=== PATIENT | female | born 1945 | race African-American/Black ===

== ENCOUNTER 2017-02-14 20:59 | Inpatient (IN) | payer MEDICARE, OTHER ==
[~2017-02-14] VITALS: Ht 162.6 cm; Wt 71.9 kg
[2017-02-14] MEDS ORDERED: DEXTROSE 50% 25 GM / 50ML DISP.SYRIN. IV ONE ×3 (21:20→23:00)
[2017-02-14] MEDS ORDERED: IV NORMAL SALINE 1000ML BAG 2,040 ML IV SCH (21:33)
[2017-02-14 21:38] LABS: BASO # 0.8 x10^3/uL (0.0-0.2); BASO % 1 % (0-3); EOS % 1 % (0-3); LYMPH % 3 % (24-48); MEAN CORPUSCULAR HEMOGLOBIN 27 pg (25-35); MEAN CORPUSCULAR HGB CONC 29 g/dL (31-37); MEAN CORPUSCULAR VOLUME 94 fL (79-100); MONO % 3 % (0-9); NEUT % 93 % (31-73); PLATELET COUNT 864 x10^3/uL (140-400); RED BLOOD COUNT 1.56 x10^6/uL (3.50-5.40); RED CELL DISTRIBUTION WIDTH 27.8 % (11.5-14.5)
[2017-02-14 21:42] LABS: HEMATOCRIT 14.7 % (36.0-47.0); HEMOGLOBIN 4.2 g/dL (12.0-15.5); WHITE BLOOD COUNT 67.7 x10^3/uL (4.0-11.0)
[2017-02-14 21:52] LABS: CALCIUM 7.6 mg/dL (8.5-10.1); CREATININE 7.2 mg/dL (0.6-1.0); GFR 5.6; POTASSIUM 4.2 mmol/L (3.5-5.1)
[2017-02-14 22:00] LABS: ALBUMIN 2.1 g/dL (3.4-5.0); ALBUMIN/GLOBULIN RATIO 0.8 (1.0-1.7); INR 1.8 (0.8-1.1); PROTHROMBIN TIME PATIENT 19.7 SEC (11.7-14.0); TOTAL BILIRUBIN 0.3 mg/dL (0.2-1.0); TOTAL PROTEIN 4.7 g/dL (6.4-8.2)
[2017-02-14] MEDS ORDERED: IV NORMAL SALINE 1000ML BAG 1,000 ML IV SCH (22:15)
[2017-02-14] MEDS ORDERED: VANCOMYCIN 1.75 GM in IV NORMAL SALINE 500ML BAG 500 ML IV ONE (22:15)
[2017-02-14 22:31] LABS: % EOS 1 % (0-5); ANISOCYTOSIS MARKED; HYPOCHROMIA MOD; PLT ESTIMATE INCREASED (ADEQUATE); POIKILOCYTOSIS MOD; POLYCHROMASIA MOD
[2017-02-14 22:32] LABS: SCHISTOCYTES FEW; SPHEROCYTES FEW; TOXIC GRANULATION SLIGHT
--- NOTE | 2017-02-14 22:41 | PHYS DOC ---
Past Medical History Past Medical History: Diabetes-Type II Past Surgical History: No Surgical History Adult General Chief Complaint Chief Complaint: HYPOGLYCEMIA HPI HPI Patient is a 71 year old female who presents with altered mental status. The patient was found to be unresponsive in her room at [facility] immediately prior to arrival. The patient was last seen well at approximate 1600 after she refused dinner at that time. The patient was evaluated by EMS. Blood sugar was found to be 10. Patient was given an amp of D50 prior to arrival with increase in her blood sugar to 190. The patient continues to be lethargic but is able to arouse to voice. Patient provides no history during history of present illness. The patient did not voice any complaints. The patient has history of diabetes mellitus currently on insulin therapy, myelodysplastic disorder, CHF, and end-stage renal disease. Patient was recently admitted at [facility] last week and was treated for pneumonia. Patient had a peritoneal dialysis catheter placed during her previous hospital visit. The catheter has not been used since its placement. Review of Systems Review of Systems Unable to obtain due to patient with profound altered mental status Current Medications Current Medications Current Medications Medications (Trade) Dose Ordered Sig/Tri Start Time Stop Time Status Last Admin Dose Admin Dextrose (Dextrose 50%-Water Syringe) 25 gm STK-MED ONCE 02/14/17 21:20 02/14/17 21:21 DC Sodium Chloride 1,000 ml @ 510 mls/hr [id number] 02/14/17 22:15 02/15/17 01:32 Vancomycin HCl (Vanco Per Pharmacy) 1 each PRN DAILY PRN 02/14/17 22:00 Vancomycin HCl 1.75 gm/Sodium Chloride 500 ml @ 250 mls/hr 1X ONCE 02/14/17 22:15 02/15/17 00:14 02/14/17 22:21 250 MLS/HR Allergies Allergies Allergies Coded Allergies Type Severity Reaction Last Updated Verified anagrelide Allergy Unknown 02/14/17 Yes ibuprofen Allergy Unknown 02/14/17 Yes lisinopril Allergy Unknown 02/14/17 Yes pseudoephedrine Allergy Unknown 02/14/17 Yes triprolidine Allergy Unknown 02/14/17 Yes Physical Exam Physical Exam Constitutional: Lethargic, opens eyes to voice, hypotensive, hypothermic, appears ill. [] HENT: Normocephalic, atraumatic, bilateral external ears normal, oropharynx moist, no oral exudates, nose normal. [] Eyes: PERRLA, EOMI, conjunctiva normal, no discharge. [] Neck: Normal range of motion, no tenderness, supple, no stridor. [] Cardiovascular:Heart rate regular rhythm, no murmur [] Lungs & Thorax: Bilateral breath sounds clear to auscultation [] Abdomen: Hypoactive bowel sounds, nondistended, tender in all 4 quadrants with guarding, no pulsatile masses, left lower quadrant PD catheter in place. [] Skin: Cool, dry, no erythema, no rash. [] Extremities: No tenderness, no cyanosis, no clubbing, ROM intact, no edema. [] Neurologic: Lethargic, opens eyes to voice, moves all extremities purposefully, no focal deficits noted. [] Current Patient Data Vital Signs Vital Signs Date Time Temp Pulse Resp B/P (MAP) Pulse Ox O2 Delivery O2 Flow Rate FiO2 02/14/17 20:59 93.7 65 16 101/50 (67) 100 Room Air 93.7 Lab Values Laboratory Tests Test 02/14/17 21:00 02/14/17 21:18 02/14/17 21:45 02/14/17 22:10 White Blood Count 67.7 x10^3/uL (4.0-11.0) *H Red Blood Count 1.56 x10^6/uL (3.50-5.40) L Hemoglobin 4.2 g/dL (12.0-15.5) *L Hematocrit 14.7 % (36.0-47.0) *L Mean Corpuscular Volume 94 fL (79-100) Mean Corpuscular Hemoglobin 27 pg (25-35) Mean Corpuscular Hemoglobin Concent 29 g/dL (31-37) L Red Cell Distribution Width 27.8 % (11.5-14.5) H Platelet Count 864 x10^3/uL (140-400) H Neutrophils (%) (Auto) 93 % (31-73) H Lymphocytes (%) (Auto) 3 % (24-48) L Monocytes (%) (Auto) 3 % (0-9) Eosinophils (%) (Auto) 1 % (0-3) Basophils (%) (Auto) 1 % (0-3) Neutrophils # (Auto) 62.7 x10^3uL (1.8-7.7) H Lymphocytes # (Auto) 2.0 x10^3/uL (1.0-4.8) Monocytes # (Auto) 1.7 x10^3/uL (0.0-1.1) H Eosinophils # (Auto) 0.5 x10^3/uL (0.0-0.7) Basophils # (Auto) 0.8 x10^3/uL (0.0-0.2) H Segmented Neutrophils % 76 % (35-66) H Band Neutrophils % 19 % (0-9) H Lymphocytes % 2 % (24-48) L Eosinophils % 1 % (0-5) Metamyelocytes % 1 % (0-0) H Myelocytes % 1 % (0-0) H Toxic Granulation Slight Platelet Estimate Increased (ADEQUATE) Giant Platelets Few Polychromasia Mod Hypochromasia Mod Poikilocytosis Mod Anisocytosis Marked Spherocytes Few Schistocytes Few Prothrombin Time 19.7 SEC (11.7-14.0) H Prothrombin Time INR 1.8 (0.8-1.1) H PTT 45 SEC (24-38) H Sodium Level 139 mmol/L (136-145) Potassium Level 4.2 mmol/L (3.5-5.1) Chloride Level 101 mmol/L (98-107) Carbon Dioxide Level 29 mmol/L (21-32) Anion Gap 9 (6-14) Blood Urea Nitrogen 69 mg/dL (7-20) H Creatinine 7.2 mg/dL (0.6-1.0) H Estimated GFR (Cockcroft-Gault) 5.6 BUN/Creatinine Ratio 10 (6-20) Glucose Level 79 mg/dL (70-99) Lactic Acid Level 2.7 mmol/L (0.4-2.0) H Calcium Level 7.6 mg/dL (8.5-10.1) L Magnesium Level 2.0 mg/dL (1.8-2.4) Total Bilirubin 0.3 mg/dL (0.2-1.0) Aspartate Amino Transferase (AST) 70 U/L (15-37) H Alanine Aminotransferase (ALT) 11 U/L (14-59) L Alkaline Phosphatase 125 U/L (46-116) H Total Protein 4.7 g/dL (6.4-8.2) L Albumin 2.1 g/dL (3.4-5.0) L Albumin/Globulin Ratio 0.8 (1.0-1.7) L Glucose (Fingerstick) 67 mg/dL (70-99) L 140 mg/dL (70-99) H 108 mg/dL (70-99) H Laboratory Tests 02/14/17 21:00 Laboratory Tests 02/14/17 21:00 EKG EKG Interpreted by me: Heart rate 68, sinus rhythm, normal intervals, T-wave inversions in V2 through V4, no acute ST elevations or depressions[] Radiology/Procedures Radiology/Procedures One view AP chest x-ray interpreted by me: No infiltrate, no effusions, normal cardiac silhouette [facility] [address] [address] IMAGING REPORT Signed PATIENT: DAIN HOYOS ACCOUNT: [id number] : 1945 LOCATION: [facility] ICU AGE: 71 SEX: F EXAM STATUS: ADM IN ORD. PHYSICIAN: TREVIN BALDERRAMA MD REASON: altered mental status PROCEDURE: CT HEAD WO CONTRAST CT HEAD WO CONTRAST dated 02/14/2017 10:33 PM Indication: Altered mental status, unresponsiveams, unresponsive, no priors. Comparison: No comparison is available. Technique: Contiguous axial imaging the head was performed from skull base to vertex. One or more of the following individualized dose reduction techniques were utilized for this examination: 1. Automated exposure control 2. Adjustment of the mA and/or kV according to patient size 3. Use of iterative reconstruction technique Findings: Ventricles and sulci are mildly prominent for age. No midline shift or mass effect. Mild patchy low density in the deep/subcortical periventricular white matter. No hemorrhage or extra-axial collection. Posterior fossa and brainstem unremarkable. Visualized paranasal sinuses and mastoid air cells are clear. No acute calvarial abnormality. Small mucous retention cyst of the right sphenoid sinus. IMPRESSION: 1. No evidence of acute intracranial hemorrhage or mass. 2. Mild chronic small vessel ischemic changes and atrophy. Electronically signed by: Efrain Muñoz MD (02/14/2017 10:48 PM) [facility] DICTATED and SIGNED BY: EFRAIN MUÑOZ MD DATE: 02/14/172245 CC: TREVIN BALDERRAMA MD; DIANA GUY MD; UNKNOWN PCP NAME ~ [facility] [address] [place] [address] IMAGING REPORT Signed PATIENT: DAIN HOYOS ACCOUNT: [id number] : 1945 LOCATION: [address] [place] [address] AGE: 71 SEX: F EXAM STATUS: ADM IN ORD. PHYSICIAN: TREVIN BALDERRAMA MD REASON: altered mental status, abdominal pain, history of peritoneal dialysis PROCEDURE: CT ABDOMEN PELVIS WO CONTRAST CT ABDOMEN PELVIS WO CONTRAST dated 02/14/2017 10:35 PM Indication: Low hemoglobin, low blood pressure unresponsive, altered mental status Comparison: No comparison is available. Technique: Contiguous axial imaging of the abdomen and pelvis performed without the administration of IV or oral contrast. One or more of the following individualized dose reduction techniques were utilized for this examination: 1. Automated exposure control 2. Adjustment of the mA and/or kV according to patient size 3. Use of iterative reconstruction technique Findings: Limited images of lung bases show small right pleural effusion. Patchy consolidation in the lower lobes, likely atelectasis or scar. Heart size is moderately enlarged. No pericardial effusion. Solid abdominal viscera not well evaluated in the absence of contrast material. No apparent attenuation abnormality of the liver or spleen. Spleen is mildly enlarged. Pancreas and adrenal glands are not well visualized. There is mild bilateral renal atrophy. Well-defined low-density lesion at the midpole left kidney, likely cyst. There is also possible small stone at the upper pole left kidney measuring 2 to 3 mm in size. No hydronephrosis. There is a peritoneal dialysis catheter near the midline located just above the level of the umbilicus. Catheter coils centrally near the L5-S1 level. There is a large heterogeneous high density collection within the pelvis just inferior to the catheter entrance site that measures up to 10 cm maximum dimension. There are also high density collections along the bilateral pelvic sidewall, measuring 6.7 cm on the left and 7.9 cm on the right. There is also asymmetric high density enlargement of the left rectus muscle, measuring 3.3 x 5.9 x 6.8 cm. Nodular areas of high density are also noted within the subcutaneous fat along the upper margin of the left rectus sheath hematoma. GI tract is not well evaluated. There is moderate stool throughout the colon. No small bowel dilation. Pelvic structures are difficult to evaluate due to heterogeneous fluid collections in the pelvis. Bone windows show no acute findings. Multilevel spondylosis. IMPRESSION: 1. Large multiloculated heterogeneous collection within the pelvis, involving the extraperitoneal and retroperitoneal spaces. Considerations would include a large pelvic hematoma if the peritoneal dialysis catheter has recently been placed. Peritonitis and developing pelvic abscess is also possible. There is also an associated rectus sheath hematoma on the left. Please see above report for full details. If possible, postcontrast CT in the arterial and portal venous phases would better evaluate. 2. Small amount of free pelvic fluid. 3. Bilateral renal atrophy. 4. Splenomegaly. 5. Bibasilar airspace disease, atelectasis versus pneumonia. There is a small pleural effusion on the right. Results discussed with ER physician at approximately 10:55 PM on the day of the exam. Electronically signed by: Efrain Muñoz MD (02/14/2017 11:06 PM) [facility] DICTATED and SIGNED BY: EFRAIN MUÑOZ MD DATE: 02/14/172247 CC: TREVIN BALDERRAMA MD; DIANA GUY MD; UNKNOWN PCP NAME ~ [] Course & Med Decision Making Course & Med Decision Making Pertinent Labs and Imaging studies reviewed. (See chart for details) Patient critically ill. Patient found to have profound hypothermia and started on bear hugger and warm IV fluids. Patient was given a 30 mL per kilo bolus of IV fluids due to low blood pressure and suspicion for sepsis. Patient found to have critically low hemoglobin of 4 and was typed and crossed for 3 units of packed red blood cells. Given the patient's history of myelodysplastic syndrome and recent insertion of a peritoneal dialysis catheter, I am concerned that the patient may have spontaneous bacterial peritonitis given her diffuse tenderness throughout her abdomen on exam. The patient also had to be re-supplemented with multiple doses of D50 for her dropping blood sugar and patient is being continued currently on D5 half-normal saline to try to stabilize blood sugars. Patient's INR was found to be 1.8. Due to high bleeding risk, a central line was not placed in the patient at this time, however patient does have 2 peripheral IVs and is receiving fluids and packed red blood cells. The patient' s CT scan shows a large fluid collection in the lower abdomen. Differential is broad and would include possible acute bleeding versus development of pelvic abscess. Due to renal failure and lack of hemodialysis access, a CT with IV contrast cannot be obtained at this time. The patient is unstable and is not fit for emergent transfer. I spoke with the patient's family extensively regarding the patient's condition. They agreed that the patient should stay at [facility] for further care and stabilization. I spoke with Dr. Guy who came and evaluated the patient in the emergency department. She assumed care of patient for admission to ICU for further care. Due to continued hypotension, dopamine was initiated in the emergency department to help support vital signs. Critical care time excluding procedures: 60 minutes Dragon Disclaimer Dragon Disclaimer This electronic medical record was generated, in whole or in part, using a voice recognition dictation system. Departure Departure Impression: Primary Impression: Severe sepsis Additional Impressions: Hypotension Hypoglycemia Anemia Myelodysplastic syndrome End stage renal disease Congestive heart failure Coagulopathy Disposition: ADMITTED INPATIENT Admitting Physician: Diana Guy Condition: CRITICAL Referrals: UNKNOWN PCP NAME (PCP) Problem Qualifiers Additional Impressions: Hypotension Hypotension type: unspecified hypotension type Qualified Codes: I95.9 - Hypotension, unspecified Anemia Anemia type: unspecified type Qualified Codes: D64.9 - Anemia, unspecified Congestive heart failure Congestive heart failure type: unspecified congestive heart failure type Congestive heart failure chronicity: chronic Qualified Codes: I50.9 - Heart failure, unspecified TREVIN BALDERRAMA MD Feb 14, 2017 22:41
--- NOTE | 2017-02-14 22:51 | RAD ---
CT HEAD WO CONTRAST dated 02/14/2017 10:33 PM Indication: Altered mental status, unresponsiveams, unresponsive, no priors. Comparison: No comparison is available. Technique: Contiguous axial imaging the head was performed from skull base to vertex. One or more of the following individualized dose reduction techniques were utilized for this examination: 1. Automated exposure control 2. Adjustment of the mA and/or kV according to patient size 3. Use of iterative reconstruction technique Findings: Ventricles and sulci are mildly prominent for age. No midline shift or mass effect. Mild patchy low density in the deep/subcortical periventricular white matter. No hemorrhage or extra-axial collection. Posterior fossa and brainstem unremarkable. Visualized paranasal sinuses and mastoid air cells are clear. No acute calvarial abnormality. Small mucous retention cyst of the right sphenoid sinus. IMPRESSION: 1. No evidence of acute intracranial hemorrhage or mass. 2. Mild chronic small vessel ischemic changes and atrophy. Electronically signed by: Efrain Muñoz MD (02/14/2017 10:48 PM) [facility]
[2017-02-14] MEDS ORDERED: FUROSEMIDE 40 MG/4 ML VIAL. IV PRN (23:00)
[2017-02-14] MEDS ORDERED: levOFLOXacin PER PHARMACY. MC PRN (23:00)
--- NOTE | 2017-02-14 23:09 | PDOC1 ---
History and Physical Date of Admission Date of Admission DATE: 02/14/17 TIME: 22:56 Identification/Chief Complaint Chief Complaint altered MS Problems: Source Source: Caregiver, Chart review, Patient History of Present Illness History of Present Illness 8o y.o AA female who was just at for about a week for pNA, CHF and new ESRD PD cath was placed there , also dx MDS with baseline hgb 8 per family, last transfusion was at in last admit just last week, was sent to [facility] for rehab upoin dc from . Then tonight, staff noted Change iN MS, unresponsiveness , hypoglycemia, hypothermia now on nedra hugger at ER. Hypotensive 77/44, hgb 4 with WBC 67 and platelets 864, INR 1,8, only has peripherals, There was report of abd pain, PD cath in place, now en route to CT, REst of plan pending course and CT results. NOt responding, maybe to pain and strong voice but seems to be protecting airway so far, Did discuss code status with family,. brea code for now, has paperwork to show patient;'s wishes. NO izquierdo yet, unknown UO Creat is 7.2, K and bicarb ok Hyppglycemic 40s, 60s, better now with dextrose pushes ALbumin 2.1 alk phosphatase elevated 100s Past Medical History Cardiovascular: CHF, HTN Heme/Onc: Anemia NOS, Cancer, Other (MDS) Renal/: Chronic renal failure, Other (ESDR new HD) Past Surgical History Past Surgical History: Other (Recent PD cath inserition) Family History Family History: Family History Unknown Social History Smoke: No ALCOHOL: none Drugs: None Current Medications Current Medications Current Medications Dextrose (Dextrose 50%-Water Syringe) 25 gm STK-MED ONCE IV ; Start 02/14/17 at 21:20; Stop 02/14/17 at 21:21; Status DC Sodium Chloride 2,040 ml @ 510 mls/hr Q4H IV Last administered on 02/14/17t 21 :33; Start 02/14/17 at 21:33; Stop 02/14/17 at 22:05; Status DC Vancomycin HCl (Vanco Per Pharmacy) 1 each PRN DAILY PRN MC SEE COMMENTS; Start 02/14/17 at 21:45; Status UNV Levofloxacin/ Dextrose (Levaquin Per Pharmacy) 1 each PRN DAILY PRN MC SEE COMMENTS; Start 02/14/17 at 23:00 Vancomycin HCl 1.75 gm/Sodium Chloride 500 ml @ 250 mls/hr 1X ONCE IV Last administered on 02/14/17 22:21; Start 02/14/17 at 22:15; Stop 02/15/17 at 00:14 Sodium Chloride 1,000 ml @ 510 mls/hr Q1H58M IV ; Start 02/14/17 at 22:15; Stop 02/15/17 at 01:32 Levofloxacin/ Dextrose 100 ml @ 100 mls/hr Q48H IV ; Start 02/14/17 at 23:00 Dextrose (Dextrose 50%-Water Syringe) 25 gm 1X ONCE IV Last administered on 22:52; Start 02/14/17 at 23:00; Stop 02/14/17 at 23:01 Dextrose (Dextrose 50%-Water Syringe) 25 gm 1X ONCE IV ; Start 02/14/17 at 23: 00; Stop 02/14/17 at 23:01 Furosemide (Lasix) 40 mg 1X PRN PRN IV blood transfusion; Start 02/14/17 at 23: 00; Stop 02/15/17 at 22:59 Allergies Allergies: Coded Allergies: anagrelide (Verified Allergy, Unknown, 02/14/17) ibuprofen (Verified Allergy, Unknown, 02/14/17) lisinopril (Verified Allergy, Unknown, 02/14/17) pseudoephedrine (Verified Allergy, Unknown, 02/14/17) triprolidine (Verified Allergy, Unknown, 02/14/17) ROS Review of System minimal responsiveness Physical Exam General: No acute distress, Other (minimal responsiveness) HEENT: Atraumatic, PERRLA, EOMI Lungs: Normal air movement, Other (no rales wheezes) Cardiovascular: S1, S2 Breasts: Normal, Rt breast nml w/o mass, Lt breast nml w/o mass, Nipples normal Abdomen: Soft, Other (PC cath in place, some concentrated fat/tissue ner PD cath site) Rectal Exam: not examined PELVIC: Nml ext genitalia Extremities: No clubbing, No cyanosis, No edema, Normal pulses, No tenderness/ swelling Skin: No rashes, No breakdown, No significant lesion Vitals Vitals Vital Signs Date Time Temp Pulse Resp B/P (MAP) Pulse Ox O2 Delivery O2 Flow Rate FiO2 02/14/17 22:47 92.9 92.9 02/14/17 20:59 65 16 101/50 (67) 100 Room Air Labs Labs Laboratory Tests Test 02/14/17 21:00 02/14/17 21:18 02/14/17 21:45 02/14/17 22:10 White Blood Count 67.7 x10^3/uL (4.0-11.0) Red Blood Count 1.56 x10^6/uL (3.50-5.40) Hemoglobin 4.2 g/dL (12.0-15.5) Hematocrit 14.7 % (36.0-47.0) Mean Corpuscular Volume 94 fL (79-100) Mean Corpuscular Hemoglobin 27 pg (25-35) Mean Corpuscular Hemoglobin Concent 29 g/dL (31-37) Red Cell Distribution Width 27.8 % (11.5-14.5) Platelet Count 864 x10^3/uL (140-400) Neutrophils (%) (Auto) 93 % (31-73) Lymphocytes (%) (Auto) 3 % (24-48) Monocytes (%) (Auto) 3 % (0-9) Eosinophils (%) (Auto) 1 % (0-3) Basophils (%) (Auto) 1 % (0-3) Neutrophils # (Auto) 62.7 x10^3uL (1.8-7.7) Lymphocytes # (Auto) 2.0 x10^3/uL (1.0-4.8) Monocytes # (Auto) 1.7 x10^3/uL (0.0-1.1) Eosinophils # (Auto) 0.5 x10^3/uL (0.0-0.7) Basophils # (Auto) 0.8 x10^3/uL (0.0-0.2) Segmented Neutrophils % 76 % (35-66) Band Neutrophils % 19 % (0-9) Lymphocytes % 2 % (24-48) Eosinophils % 1 % (0-5) Metamyelocytes % 1 % (0-0) Myelocytes % 1 % (0-0) Toxic Granulation Slight Platelet Estimate Increased (ADEQUATE) Giant Platelets Few Polychromasia Mod Hypochromasia Mod Poikilocytosis Mod Anisocytosis Marked Spherocytes Few Schistocytes Few Prothrombin Time 19.7 SEC (11.7-14.0) Prothromb Time International Ratio 1.8 (0.8-1.1) Activated Partial Thromboplast Time 45 SEC (24-38) Sodium Level 139 mmol/L (136-145) Potassium Level 4.2 mmol/L (3.5-5.1) Chloride Level 101 mmol/L (98-107) Carbon Dioxide Level 29 mmol/L (21-32) Anion Gap 9 (6-14) Blood Urea Nitrogen 69 mg/dL (7-20) Creatinine 7.2 mg/dL (0.6-1.0) Estimated GFR (Cockcroft-Gault) 5.6 BUN/Creatinine Ratio 10 (6-20) Glucose Level 79 mg/dL (70-99) Lactic Acid Level 2.7 mmol/L (0.4-2.0) Calcium Level 7.6 mg/dL (8.5-10.1) Magnesium Level 2.0 mg/dL (1.8-2.4) Total Bilirubin 0.3 mg/dL (0.2-1.0) Aspartate Amino Transf (AST/SGOT) 70 U/L (15-37) Alanine Aminotransferase (ALT/SGPT) 11 U/L (14-59) Alkaline Phosphatase 125 U/L (46-116) Total Protein 4.7 g/dL (6.4-8.2) Albumin 2.1 g/dL (3.4-5.0) Albumin/Globulin Ratio 0.8 (1.0-1.7) Glucose (Fingerstick) 67 mg/dL (70-99) 140 mg/dL (70-99) 108 mg/dL (70-99) Laboratory Tests Test 02/14/17 21:00 02/14/17 21:18 02/14/17 21:45 02/14/17 22:10 White Blood Count 67.7 x10^3/uL (4.0-11.0) Red Blood Count 1.56 x10^6/uL (3.50-5.40) Hemoglobin 4.2 g/dL (12.0-15.5) Hematocrit 14.7 % (36.0-47.0) Mean Corpuscular Volume 94 fL (79-100) Mean Corpuscular Hemoglobin 27 pg (25-35) Mean Corpuscular Hemoglobin Concent 29 g/dL (31-37) Red Cell Distribution Width 27.8 % (11.5-14.5) Platelet Count 864 x10^3/uL (140-400) Neutrophils (%) (Auto) 93 % (31-73) Lymphocytes (%) (Auto) 3 % (24-48) Monocytes (%) (Auto) 3 % (0-9) Eosinophils (%) (Auto) 1 % (0-3) Basophils (%) (Auto) 1 % (0-3) Neutrophils # (Auto) 62.7 x10^3uL (1.8-7.7) Lymphocytes # (Auto) 2.0 x10^3/uL (1.0-4.8) Monocytes # (Auto) 1.7 x10^3/uL (0.0-1.1) Eosinophils # (Auto) 0.5 x10^3/uL (0.0-0.7) Basophils # (Auto) 0.8 x10^3/uL (0.0-0.2) Segmented Neutrophils % 76 % (35-66) Band Neutrophils % 19 % (0-9) Lymphocytes % 2 % (24-48) Eosinophils % 1 % (0-5) Metamyelocytes % 1 % (0-0) Myelocytes % 1 % (0-0) Toxic Granulation Slight Platelet Estimate Increased (ADEQUATE) Giant Platelets Few Polychromasia Mod Hypochromasia Mod Poikilocytosis Mod Anisocytosis Marked Spherocytes Few Schistocytes Few Prothrombin Time 19.7 SEC (11.7-14.0) Prothromb Time International Ratio 1.8 (0.8-1.1) Activated Partial Thromboplast Time 45 SEC (24-38) Sodium Level 139 mmol/L (136-145) Potassium Level 4.2 mmol/L (3.5-5.1) Chloride Level 101 mmol/L (98-107) Carbon Dioxide Level 29 mmol/L (21-32) Anion Gap 9 (6-14) Blood Urea Nitrogen 69 mg/dL (7-20) Creatinine 7.2 mg/dL (0.6-1.0) Estimated GFR (Cockcroft-Gault) 5.6 BUN/Creatinine Ratio 10 (6-20) Glucose Level 79 mg/dL (70-99) Lactic Acid Level 2.7 mmol/L (0.4-2.0) Calcium Level 7.6 mg/dL (8.5-10.1) Magnesium Level 2.0 mg/dL (1.8-2.4) Total Bilirubin 0.3 mg/dL (0.2-1.0) Aspartate Amino Transf (AST/SGOT) 70 U/L (15-37) Alanine Aminotransferase (ALT/SGPT) 11 U/L (14-59) Alkaline Phosphatase 125 U/L (46-116) Total Protein 4.7 g/dL (6.4-8.2) Albumin 2.1 g/dL (3.4-5.0) Albumin/Globulin Ratio 0.8 (1.0-1.7) Glucose (Fingerstick) 67 mg/dL (70-99) 140 mg/dL (70-99) 108 mg/dL (70-99) VTE Prophylaxis Ordered VTE Prophylaxis Devices: Yes VTE Pharmacological Prophylaxi: Yes Assessment/Plan Assessment/Plan 1. 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 Severe thormbocytosis, reactive likely from # 1 4. ESRD recent PD cath insertion [facility] last week 5. TJ on ESRD, creat 7,.2, - k and bicarb ok, insert izquierdo now 6. Elevated LFTs, alk phosphatase in the background of severe hypotension and MDS 7. Hypotensive shock, hemorrhagic? anemia? SIRS vs sepsis with ORGAN dysfcn 8. Elevated iNR 1.8 - no bleeding obvious so far 9. Abd pain - per report, stat CT 10. Hypothermia, hypoglycemia - nedra hugger, desxtrose -given and BS better 11. Acute metabolic enceph PLAn: Admit ICU STAt CT head and CT abd Insert izquierdo Call out to nephro COnsult pulmo for critcial care, heme onc, Get records from [facility] Strict I and o transfuse at least 3 PRBC Pressors standby INtubate if needed/gets worse So far full code PPI prophy NPO SCds Awaiting home meds to review Lacate 2.7 - recheck labs danny Hx CHF - might need lasix in between transfusion of BP tolerates? - do if already on pressors LOts of med issues Critically ill CC 35 mins Seen at [facility]ESAR SHARMA MD Feb 14, 2017 23:09
--- NOTE | 2017-02-14 23:09 | RAD ---
CT ABDOMEN PELVIS WO CONTRAST dated 02/14/2017 10:35 PM Indication: Low hemoglobin, low blood pressure unresponsive, altered mental status Comparison: No comparison is available. Technique: Contiguous axial imaging of the abdomen and pelvis performed without the administration of IV or oral contrast. One or more of the following individualized dose reduction techniques were utilized for this examination: 1. Automated exposure control 2. Adjustment of the mA and/or kV according to patient size 3. Use of iterative reconstruction technique Findings: Limited images of lung bases show small right pleural effusion. Patchy consolidation in the lower lobes, likely atelectasis or scar. Heart size is moderately enlarged. No pericardial effusion. Solid abdominal viscera not well evaluated in the absence of contrast material. No apparent attenuation abnormality of the liver or spleen. Spleen is mildly enlarged. Pancreas and adrenal glands are not well visualized. There is mild bilateral renal atrophy. Well-defined low-density lesion at the midpole left kidney, likely cyst. There is also possible small stone at the upper pole left kidney measuring 2 to 3 mm in size. No hydronephrosis. There is a peritoneal dialysis catheter near the midline located just above the level of the umbilicus. Catheter coils centrally near the L5-S1 level. There is a large heterogeneous high density collection within the pelvis just inferior to the catheter entrance site that measures up to 10 cm maximum dimension. There are also high density collections along the bilateral pelvic sidewall, measuring 6.7 cm on the left and 7.9 cm on the right. There is also asymmetric high density enlargement of the left rectus muscle, measuring 3.3 x 5.9 x 6.8 cm. Nodular areas of high density are also noted within the subcutaneous fat along the upper margin of the left rectus sheath hematoma. GI tract is not well evaluated. There is moderate stool throughout the colon. No small bowel dilation. Pelvic structures are difficult to evaluate due to heterogeneous fluid collections in the pelvis. Bone windows show no acute findings. Multilevel spondylosis. IMPRESSION: 1. Large multiloculated heterogeneous collection within the pelvis, involving the extraperitoneal and retroperitoneal spaces. Considerations would include a large pelvic hematoma if the peritoneal dialysis catheter has recently been placed. Peritonitis and developing pelvic abscess is also possible. There is also an associated rectus sheath hematoma on the left. Please see above report for full details. If possible, postcontrast CT in the arterial and portal venous phases would better evaluate. 2. Small amount of free pelvic fluid. 3. Bilateral renal atrophy. 4. Splenomegaly. 5. Bibasilar airspace disease, atelectasis versus pneumonia. There is a small pleural effusion on the right. Results discussed with ER physician at approximately 10:55 PM on the day of the exam. Electronically signed by: Efrain Muñoz MD (02/14/2017 11:06 PM) [facility]
[2017-02-14 23:14] LABS: BILIRUBIN,URINE NEGATIVE (NEG); GLUCOSE,URINE NEGATIVE (NEG); NITRITE,URINE NEGATIVE (NEG); PROTEIN,URINE >=300 mg/dL (NEG-TRACE); UROBILINOGEN,URINE 0.2 mg/dL (0.2 mg/dL)
[2017-02-14] MEDS ORDERED: ACETAMINOPHEN 500 MG TABLET PO PRN (23:15)
[2017-02-14] MEDS ORDERED: ACETAMINOPHEN 120 MG SUPP.RECT. PR PRN (23:15)
[2017-02-14 23:19] LABS: BARBITURATES NEG (NEG); BENZODIAZEPINES NEG (NEG); CANNABINOIDS NEG (NEG); COCAINE NEG (NEG); METHADONE NEG (NEG); OPIATES POS (NEG); PHENCYCLIDINE NEG (NEG)
[2017-02-14 23:24] VITALS: BP 81/46
[2017-02-14 23:26] LABS: BACTERIA,URINE FEW /HPF (0-FEW); RBC,URINE OCC /HPF (0-2); SQUAMOUS EPITHELIAL CELL,UR OCC /LPF
[2017-02-14 23:34] VITALS: BP 82/47
[2017-02-14] MEDS: VANCOMYCIN PER PHARMACY MC PRN ×2 (23:40→23:45)
[2017-02-14] MEDS ORDERED: IV DEXTROSE 5 %-0.45 % NACL 1,000 ML IV ONE (23:45)
[2017-02-14] MEDS ORDERED: ONDANSETRON PF 4 MG/2 ML VIAL. IV PRN (23:45)
[2017-02-14 23:47] VITALS: BP 70/39
[2017-02-14 23:54] LABS: NEG OBC FOB NEG; POS OBC FOB POS
[2017-02-14 23:55] VITALS: BP 68/37
[2017-02-15] VITALS (31 sets, daily range): BP systolic 76–167; BP diastolic 42–89
[2017-02-15] MEDS ORDERED: INSU100I13 SQ (02:31)
[2017-02-15] MEDS ORDERED: OMEP40CA5 PO (02:31)
[2017-02-15] MEDS ORDERED: SODI650T PO (02:31)
[2017-02-15] MEDS ORDERED: POLY17PO29 PO (02:31)
[2017-02-15] MEDS ORDERED: CARV12.5 PO (02:31)
[2017-02-15] MEDS ORDERED: FERR325T72 PO (02:31)
[2017-02-15] MEDS ORDERED: PROAIR HFA8.5 GM INH (02:31)
[2017-02-15] MEDS ORDERED: FLUT1DIS3 IH (02:31)
[2017-02-15] MEDS ORDERED: INSU100I17 SQ ×2 (02:31)
[2017-02-15] MEDS ORDERED: ALLO300T PO (02:31)
[2017-02-15] MEDS ORDERED: AMLO10TA4 PO (02:31)
[2017-02-15] MEDS ORDERED: ATOR40TA PO (02:31)
[2017-02-15] MEDS ORDERED: SEVE800T9 PO (02:31)
[2017-02-15] MEDS ORDERED: ASPI-482 PO (02:31)
[2017-02-15] MEDS ORDERED: EZET10TA18 PO (02:31)
[2017-02-15] MEDS ORDERED: PARI1CAP PO (02:31)
[2017-02-15] MEDS ORDERED: BUME2TAB PO (02:31)
[2017-02-15] MEDS ORDERED: OXYC-323 PO (02:31)
[2017-02-15] MEDS ORDERED: HYDR200C PO (02:31)
[2017-02-15] MEDS ORDERED: LIDO700A39 TP (02:31)
[2017-02-15] MEDS ORDERED: CINA30TA2 PO (02:31)
--- NOTE | 2017-02-15 03:02 | PDOC2 ---
CONSULT Date of Consult Date of Consult DATE: 02/15/17 TIME: 02:53 Reason for Consult Reason for Consult: Abdominal hematoma Referring Physician Referring Physician: Malena Identification/Chief Complaint Chief Complaint abd pain Problems: Source Source: Chart review, Patient History of Present Illness Reason for Visit: 71 yo F with multiple medical problems. Recently hospitalized at and underwent PDC placement a week ago. Pt was rehabbing at [facility], and noted to have decreased mental status and abd distention. Transferred to [facility] and underwent CT. Imaging was concerning for abd hematoma and rectus sheath hematoma. She is seen in her ICU room. She awakens easily and reports abd pain. She appears to have mild confusion. Has been on some pressors. Undergoing transfusion. Past Medical History Cardiovascular: CHF, HTN Heme/Onc: Anemia NOS, Cancer, Other (MDS) Renal/: Chronic renal failure, Other (ESDR new HD) Past Surgical History Past Surgical History: Other (Recent PD cath inserition) Family History Family History: Family History Unknown Social History No ALCOHOL: none Drugs: None Current Problem List Problem List Problems Medical Problems: (1) Anemia Status: Acute (2) Coagulopathy Status: Acute (3) Congestive heart failure Status: Acute (4) End stage renal disease Status: Acute (5) Hypoglycemia Status: Acute (6) Hypotension Status: Acute (7) Myelodysplastic syndrome Status: Acute Current Medications Current Medications Current Medications Dextrose (Dextrose 50%-Water Syringe) 25 gm STK-MED ONCE IV ; Start 02/14/17 at 21:20; Stop 02/14/17 at 21:21; Status DC Sodium Chloride 2,040 ml @ 510 mls/hr Q4H IV Last administered on 02/14/17 21 :33; Start 02/14/17 at 21:33; Stop 02/14/17 at 22:05; Status DC Vancomycin HCl (Vanco Per Pharmacy) 1 each PRN DAILY PRN MC SEE COMMENTS Last administered on 02/14/17 23:45; Start 02/14/17 at 22:00 Levofloxacin/ Dextrose (Levaquin Per Pharmacy) 1 each PRN DAILY PRN MC SEE COMMENTS; Start 02/14/17 at 23:00 Vancomycin HCl 1.75 gm/Sodium Chloride 500 ml @ 250 mls/hr 1X ONCE IV Last administered on 02/14/17 22:21; Start 02/14/17 at 22:15; Stop 02/15/17 at 00:14 ; Status DC Sodium Chloride 1,000 ml @ 510 mls/hr Q1H58M IV ; Start 02/14/17 at 22:15; Stop 02/15/17 at 01:32; Status DC Levofloxacin/ Dextrose 100 ml @ 100 mls/hr Q48H IV Last administered on 22:58; Start 02/14/17 at 23:00 Dextrose (Dextrose 50%-Water Syringe) 25 gm 1X ONCE IV Last administered on 22:52; Start 02/14/17 at 23:00; Stop 02/14/17 at 23:01; Status DC Dextrose (Dextrose 50%-Water Syringe) 25 gm 1X ONCE IV ; Start 02/14/17 at 23: 00; Stop 02/14/17 at 23:01; Status DC Furosemide (Lasix) 40 mg 1X PRN PRN IV blood transfusion; Start 02/14/17 at 23: 00; Stop 02/15/17 at 22:59 Dopamine HCl/ Dextrose 250 ml @ 12.688 mls/ hr CONT PRN IV SEE I/O RECORD Last administered on 02/14/17 23:44; Start 02/14/17 at 23:15 Ondansetron HCl (Zofran) 4 mg PRN Q6HRS PRN IV NAUSEA/VOMITING; Start 02/14/17 at 23:15 Famotidine (Pepcid) 10 mg BID IVP ; Start 02/15/17 at 09:00 Acetaminophen (Tylenol) 120 mg PRN Q6HRS PRN MD MILD PAIN / TEMP; Start at 23:15 Acetaminophen (Tylenol) 500 mg PRN Q6HRS PRN PO MILD PAIN / TEMP; Start at 23:15 Vancomycin HCl 1 each 1X ONCE MC ; Start 02/16/17 at 22:30; Stop 02/16/17 at 22 :31 Ondansetron HCl (Zofran) 4 mg PRN Q8HRS PRN IV NAUSEA/VOMITING; Start 02/14/17 at 23:45; Stop 02/15/17 at 23:44 Dextrose/Sodium Chloride 1,000 ml @ 125 mls/hr 1X ONCE IV ; Start 02/14/17 at 23:45; Stop 02/15/17 at 07:44 Active Scripts Active Reported Lantus Solostar (Insulin Glargine,Hum.rec.anlog) 100 Unit/1 Ml Insuln.pen 22 Unit SQ QHS Droxia (Hydroxyurea) 200 Mg Capsule 200 Mg PO DAILY Feosol (Ferrous Sulfate) 325 Mg Tablet 325 Mg PO DAILY Coreg (Carvedilol) 12.5 Mg Tablet 1 Tab PO BID Bumetanide 2 Mg Tablet 2 Tab PO BID Aspir 81 (Aspirin) 81 Mg Tablet.dr 1 Tab PO DAILY Allopurinol 300 Mg Tablet 1 Tab PO DAILY Advair 250-50 Diskus (Fluticasone/Salmeterol) 1 Each Disk.w.dev 1 Puff IH Q12HR Zetia (Ezetimibe) 10 Mg Tablet 0.5 Tab PO DAILY Zemplar (Paricalcitol) 1 Mcg Capsule 1 Cap PO DAILY Sodium Bicarbonate 650 Mg Tablet 850 Mg PO BID Sensipar (Cinacalcet Hcl) 30 Mg Tablet 30 Mg PO QODAY Renvela (Sevelamer Carbonate) 800 Mg Tablet 2 Tab PO TID Proair Hfa Inhaler (Albuterol Sulfate) 8.5 Gm Hfa.aer.ad 2 Puff INH PRN Q4HRS PRN Omeprazole 40 Mg Capsule.dr 1 Cap PO DAILY Percocet 5-325 Mg Tablet (Oxycodone/Acetaminophen) 1 Each Tablet 1-2 Tab PO PRN Q6HRS PRN Novolog Flexpen (Insulin Aspart) 100 Unit/1 Ml Insuln.pen 15 Unit SQ DAILY Novolog Flexpen (Insulin Aspart) 100 Unit/1 Ml Insuln.pen 12 Unit SQ BIDACBL Norvasc (Amlodipine Besylate) 10 Mg Tablet 10 Mg PO DAILY Miralax (Polyethylene Glycol 3350) 17 Gm Powd.pack 1 Packet PO DAILY Lipitor (Atorvastatin Calcium) 40 Mg Tablet 1 Tab PO DAILY Lidocaine 1 Each Adh..patch 1 Each TP DAILY Allergies Allergies: Coded Allergies: anagrelide (Verified Allergy, Unknown, 02/14/17) ibuprofen (Verified Allergy, Unknown, 02/14/17) lisinopril (Verified Allergy, Unknown, 02/14/17) pseudoephedrine (Verified Allergy, Unknown, 02/14/17) triprolidine (Verified Allergy, Unknown, 02/14/17) ROS Gastrointestinal: Yes Abdominal Pain Physical Exam General: Alert, Cooperative, No acute distress HEENT: Atraumatic, EOMI Lungs: Normal air movement Abdomen: Soft, Other (min TTP, distended, dressings intact on cath sites) Vitals VITALS Vital Signs Date Time Temp Pulse Resp B/P (MAP) Pulse Ox O2 Delivery O2 Flow Rate FiO2 02/15/17 02:00 96.6 101 7 110/57 (74) 99 Room Air 96.6 Labs Labs Laboratory Tests Test 02/14/17 21:00 02/14/17 21:18 02/14/17 21:45 02/14/17 21:57 White Blood Count 67.7 x10^3/uL (4.0-11.0) Red Blood Count 1.56 x10^6/uL (3.50-5.40) Hemoglobin 4.2 g/dL (12.0-15.5) Hematocrit 14.7 % (36.0-47.0) Mean Corpuscular Volume 94 fL (79-100) Mean Corpuscular Hemoglobin 27 pg (25-35) Mean Corpuscular Hemoglobin Concent 29 g/dL (31-37) Red Cell Distribution Width 27.8 % (11.5-14.5) Platelet Count 864 x10^3/uL (140-400) Neutrophils (%) (Auto) 93 % (31-73) Lymphocytes (%) (Auto) 3 % (24-48) Monocytes (%) (Auto) 3 % (0-9) Eosinophils (%) (Auto) 1 % (0-3) Basophils (%) (Auto) 1 % (0-3) Neutrophils # (Auto) 62.7 x10^3uL (1.8-7.7) Lymphocytes # (Auto) 2.0 x10^3/uL (1.0-4.8) Monocytes # (Auto) 1.7 x10^3/uL (0.0-1.1) Eosinophils # (Auto) 0.5 x10^3/uL (0.0-0.7) Basophils # (Auto) 0.8 x10^3/uL (0.0-0.2) Segmented Neutrophils % 76 % (35-66) Band Neutrophils % 19 % (0-9) Lymphocytes % 2 % (24-48) Eosinophils % 1 % (0-5) Metamyelocytes % 1 % (0-0) Myelocytes % 1 % (0-0) Toxic Granulation Slight Platelet Estimate Increased (ADEQUATE) Giant Platelets Few Polychromasia Mod Hypochromasia Mod Poikilocytosis Mod Anisocytosis Marked Spherocytes Few Schistocytes Few Prothrombin Time 19.7 SEC (11.7-14.0) Prothromb Time International Ratio 1.8 (0.8-1.1) Activated Partial Thromboplast Time 45 SEC (24-38) Sodium Level 139 mmol/L (136-145) Potassium Level 4.2 mmol/L (3.5-5.1) Chloride Level 101 mmol/L (98-107) Carbon Dioxide Level 29 mmol/L (21-32) Anion Gap 9 (6-14) Blood Urea Nitrogen 69 mg/dL (7-20) Creatinine 7.2 mg/dL (0.6-1.0) Estimated GFR (Cockcroft-Gault) 5.6 BUN/Creatinine Ratio 10 (6-20) Glucose Level 79 mg/dL (70-99) Lactic Acid Level 2.7 mmol/L (0.4-2.0) Calcium Level 7.6 mg/dL (8.5-10.1) Magnesium Level 2.0 mg/dL (1.8-2.4) Total Bilirubin 0.3 mg/dL (0.2-1.0) Aspartate Amino Transf (AST/SGOT) 70 U/L (15-37) Alanine Aminotransferase (ALT/SGPT) 11 U/L (14-59) Alkaline Phosphatase 125 U/L (46-116) Total Protein 4.7 g/dL (6.4-8.2) Albumin 2.1 g/dL (3.4-5.0) Albumin/Globulin Ratio 0.8 (1.0-1.7) Glucose (Fingerstick) 67 mg/dL (70-99) 140 mg/dL (70-99) Stool Occult Blood Positive (NEG) Test 02/14/17 22:10 02/14/17 22:45 02/14/17 23:05 02/14/17 23:30 Glucose (Fingerstick) 108 mg/dL (70-99) 73 mg/dL (70-99) 151 mg/dL (70-99) Urine Collection Type U cath Urine Color Yellow Urine Clarity Cloudy Urine pH 5.0 Urine Specific [place] 1.020 Urine Protein >=300 mg/dL (NEG-TRACE) Urine Glucose (UA) Negative mg/dL (NEG) Urine Ketones (Stick) Negative mg/dL (NEG) Urine Blood Negative (NEG) Urine Nitrite Negative (NEG) Urine Bilirubin Negative (NEG) Urine Urobilinogen Dipstick 0.2 mg/dL (0.2 mg/dL) Urine Leukocyte Esterase Small (NEG) Urine RBC Occ /HPF (0-2) Urine WBC 1-4 /HPF (0-4) Urine Squamous Epithelial Cells Occ /LPF Urine Transitional Epithelial Cells Occ /LPF Urine Bacteria Few /HPF (0-FEW) Urine Hyaline Casts Few /HPF Urine Granular Casts Occasional /HPF Urine Waxy Casts Occasional /HPF Urine Mucus Slight /LPF Urine Opiates Screen Pos (NEG) Urine Methadone Screen Neg (NEG) Urine Barbiturates Neg (NEG) Urine Phencyclidine Screen Neg (NEG) Urine Amphetamine/Methamphetamine Neg (NEG) Urine Benzodiazepines Screen Neg (NEG) Urine Cocaine Screen Neg (NEG) Urine Cannabinoids Screen Neg (NEG) Urine Ethyl Alcohol Neg (NEG) Test 02/14/17 23:45 02/15/17 01:15 Lactic Acid Level 2.9 mmol/L (0.4-2.0) 2.9 mmol/L (0.4-2.0) Laboratory Tests Test 02/14/17 21:00 02/14/17 21:18 02/14/17 21:45 02/14/17 21:57 White Blood Count 67.7 x10^3/uL (4.0-11.0) Red Blood Count 1.56 x10^6/uL (3.50-5.40) Hemoglobin 4.2 g/dL (12.0-15.5) Hematocrit 14.7 % (36.0-47.0) Mean Corpuscular Volume 94 fL (79-100) Mean Corpuscular Hemoglobin 27 pg (25-35) Mean Corpuscular Hemoglobin Concent 29 g/dL (31-37) Red Cell Distribution Width 27.8 % (11.5-14.5) Platelet Count 864 x10^3/uL (140-400) Neutrophils (%) (Auto) 93 % (31-73) Lymphocytes (%) (Auto) 3 % (24-48) Monocytes (%) (Auto) 3 % (0-9) Eosinophils (%) (Auto) 1 % (0-3) Basophils (%) (Auto) 1 % (0-3) Neutrophils # (Auto) 62.7 x10^3uL (1.8-7.7) Lymphocytes # (Auto) 2.0 x10^3/uL (1.0-4.8) Monocytes # (Auto) 1.7 x10^3/uL (0.0-1.1) Eosinophils # (Auto) 0.5 x10^3/uL (0.0-0.7) Basophils # (Auto) 0.8 x10^3/uL (0.0-0.2) Segmented Neutrophils % 76 % (35-66) Band Neutrophils % 19 % (0-9) Lymphocytes % 2 % (24-48) Eosinophils % 1 % (0-5) Metamyelocytes % 1 % (0-0) Myelocytes % 1 % (0-0) Toxic Granulation Slight Platelet Estimate Increased (ADEQUATE) Giant Platelets Few Polychromasia Mod Hypochromasia Mod Poikilocytosis Mod Anisocytosis Marked Spherocytes Few Schistocytes Few Prothrombin Time 19.7 SEC (11.7-14.0) Prothromb Time International Ratio 1.8 (0.8-1.1) Activated Partial Thromboplast Time 45 SEC (24-38) Sodium Level 139 mmol/L (136-145) Potassium Level 4.2 mmol/L (3.5-5.1) Chloride Level 101 mmol/L (98-107) Carbon Dioxide Level 29 mmol/L (21-32) Anion Gap 9 (6-14) Blood Urea Nitrogen 69 mg/dL (7-20) Creatinine 7.2 mg/dL (0.6-1.0) Estimated GFR (Cockcroft-Gault) 5.6 BUN/Creatinine Ratio 10 (6-20) Glucose Level 79 mg/dL (70-99) Lactic Acid Level 2.7 mmol/L (0.4-2.0) Calcium Level 7.6 mg/dL (8.5-10.1) Magnesium Level 2.0 mg/dL (1.8-2.4) Total Bilirubin 0.3 mg/dL (0.2-1.0) Aspartate Amino Transf (AST/SGOT) 70 U/L (15-37) Alanine Aminotransferase (ALT/SGPT) 11 U/L (14-59) Alkaline Phosphatase 125 U/L (46-116) Total Protein 4.7 g/dL (6.4-8.2) Albumin 2.1 g/dL (3.4-5.0) Albumin/Globulin Ratio 0.8 (1.0-1.7) Glucose (Fingerstick) 67 mg/dL (70-99) 140 mg/dL (70-99) Stool Occult Blood Positive (NEG) Test 02/14/17 22:10 02/14/17 22:45 02/14/17 23:05 02/14/17 23:30 Glucose (Fingerstick) 108 mg/dL (70-99) 73 mg/dL (70-99) 151 mg/dL (70-99) Urine Collection Type U cath Urine Color Yellow Urine Clarity Cloudy Urine pH 5.0 Urine Specific [place] 1.020 Urine Protein >=300 mg/dL (NEG-TRACE) Urine Glucose (UA) Negative mg/dL (NEG) Urine Ketones (Stick) Negative mg/dL (NEG) Urine Blood Negative (NEG) Urine Nitrite Negative (NEG) Urine Bilirubin Negative (NEG) Urine Urobilinogen Dipstick 0.2 mg/dL (0.2 mg/dL) Urine Leukocyte Esterase Small (NEG) Urine RBC Occ /HPF (0-2) Urine WBC 1-4 /HPF (0-4) Urine Squamous Epithelial Cells Occ /LPF Urine Transitional Epithelial Cells Occ /LPF Urine Bacteria Few /HPF (0-FEW) Urine Hyaline Casts Few /HPF Urine Granular Casts Occasional /HPF Urine Waxy Casts Occasional /HPF Urine Mucus Slight /LPF Urine Opiates Screen Pos (NEG) Urine Methadone Screen Neg (NEG) Urine Barbiturates Neg (NEG) Urine Phencyclidine Screen Neg (NEG) Urine Amphetamine/Methamphetamine Neg (NEG) Urine Benzodiazepines Screen Neg (NEG) Urine Cocaine Screen Neg (NEG) Urine Cannabinoids Screen Neg (NEG) Urine Ethyl Alcohol Neg (NEG) Test 02/14/17 23:45 02/15/17 01:15 Lactic Acid Level 2.9 mmol/L (0.4-2.0) 2.9 mmol/L (0.4-2.0) Images Images abd hematoma and rectus sheath hematoma Assessment/Plan Assessment/Plan abd hematoma rectus sheath hematoma agree with supportive care and transfusion pt appears to be gradually improving with supportive care and nursing notes improved mental status no immediate surgical plans, given clinical improvement and suspected coagulopathy will follow Thanks for consult! FREDY DENNIS MD Feb 15, 2017 03:02
[2017-02-15] MEDS: ONDANSETRON PF 4 MG/2 ML VIAL. IV PRN (05:47)
--- NOTE | 2017-02-15 06:30 | EKG ---
[facility] [address] [place] [address] Test Date: 2017-02-14 Test Time: 21:04:33 Pat Name: DAIN HOYOS Department: Room: 104 1 Gender: F [employer]: : [id number] Requested By: TREVIN BALDERRAMA Order Number: [id number] Reading MD: Filippo Kwan Measurements Intervals [place] Rate: 68 P: 51 MI: 178 QRS: 23 QRSD: 78 T: 116 QT: 494 QTc: 531 Interpretive Statements SINUS RHYTHM LEFT ATRIAL ABNORMALITY T ABNORMALITY IN ANTERIOR LEADS, HIGH LATERAL LEADS PROLONGED QT ABNORMAL ECG Electronically Signed On 02-20-2017 10:18:20 CDT by Filippo Kwan
--- NOTE | 2017-02-15 06:39 | ACF ---
Admission Forms Criteria SEPSIS and Other Febrile Illness Without Focal Infection (Place 'X' for any and all applicable criteria): Admission to inpatient status for two midnights or more is indicated for ANY ONE of the following (1)(2)(3): [ ] I. Bacteremia [ ]II. Suspected or identified specific infection requiring hospitalization (eg, meningitis, endocarditis) [X]III. Hemodynamic instability [ ]IV. Temperature > 104.9 0F (40.5 0C) (oral) [ ]V. Core (rectal) temperature < 95 0F (35 0C) (eg, thought to be due to infection) [ ]. Altered mental status that is severe or persistent [ ]VII. Failure or unavailability of outpatient antimicrobial treatment [ ]VIII. Hypoxemia [ ]IX. Seizures [ ]X. New coagulopathy (eg, reduced platelet count consistent with disseminated intravascular coagulation) [ ]XI. Inpatient admission required [B] rather than observation care because of 1 or more of the following 1) Tachypnea not responsive to outpatient or observation treatment 2) Metabolic disorder (eg, hypoglycemia, hyperglycemia, metabolic acidosis ) that persists despite outpatient and observation care treatment 3) Evidence of end-organ dysfunction (eg, rising creatinine, myocardial ischemia, rising liver function tests) that is severe or persists despite observation care treatment 4) Temperature > 103.1 0F (39.5 0C) (oral) that is not responsive to observation care treatment 5) Dehydration that is severe or persistent 6) Parenteral antimicrobial regimen that must be implemented on inpatient basis (eg, infusion or monitoring needs beyond capabilities of outpatient parenteral therapy) 7) Strict or protective (eg, laminar flow) isolation 8) Other condition, treatment or monitoring requiring inpatient admission Extended stay beyond goal length of stay may be needed for(1)(3) [ ]a) Persistent Hypotension [ ]b) Positive blood cultures [ ]c) Lack of improvement on antimicrobial treatment (eg, continued fever) [ ]d) Active comorbid illness (eg, heart failure, renal failure) [ ]e) High-risk febrile neutropenia [ ]f) Insufficient oral intake [ ]g) insufficient oral intake The original [facility] [employer] content created by [employer] has been revised. The portions of the content which have been revised are identified through the use of italic text, and [facility] [employer] has neither reviewed nor approved the modified material. All other unmodified content is copyright [facility]. Please see references footnoted in the original [facility] edition 2015 Admission Criteria Met?: Yes DOMINIK JOHNSON Feb 15, 2017 06:39
--- NOTE | 2017-02-15 07:43 | RAD ---
Portable chest, 02/14/2017: History: Altered mental status The heart is mildly enlarged. The pulmonary vascularity is normal. No pulmonary infiltrates are seen. Right-sided pleural fluid seen on the current CT study is not radiographically visible in the AP projection. IMPRESSION: 1. Cardiomegaly. 2. No acute abnormality is detected.
--- NOTE | 2017-02-15 07:55 | PDOC ---
Infectious Disease Note ROS ROS Vital Sign Vital Signs Vital Signs Date Time Temp Pulse Resp B/P (MAP) Pulse Ox O2 Delivery O2 Flow Rate FiO2 02/15/17 06:00 98.1 93 10 147/89 (108) 97 Room Air 98.1 Labs Lab Laboratory Tests Test 02/14/17 21:00 02/14/17 21:18 02/14/17 21:45 02/14/17 21:57 White Blood Count 67.7 x10^3/uL (4.0-11.0) Red Blood Count 1.56 x10^6/uL (3.50-5.40) Hemoglobin 4.2 g/dL (12.0-15.5) Hematocrit 14.7 % (36.0-47.0) Mean Corpuscular Volume 94 fL (79-100) Mean Corpuscular Hemoglobin 27 pg (25-35) Mean Corpuscular Hemoglobin Concent 29 g/dL (31-37) Red Cell Distribution Width 27.8 % (11.5-14.5) Platelet Count 864 x10^3/uL (140-400) Neutrophils (%) (Auto) 93 % (31-73) Lymphocytes (%) (Auto) 3 % (24-48) Monocytes (%) (Auto) 3 % (0-9) Eosinophils (%) (Auto) 1 % (0-3) Basophils (%) (Auto) 1 % (0-3) Neutrophils # (Auto) 62.7 x10^3uL (1.8-7.7) Lymphocytes # (Auto) 2.0 x10^3/uL (1.0-4.8) Monocytes # (Auto) 1.7 x10^3/uL (0.0-1.1) Eosinophils # (Auto) 0.5 x10^3/uL (0.0-0.7) Basophils # (Auto) 0.8 x10^3/uL (0.0-0.2) Segmented Neutrophils % 76 % (35-66) Band Neutrophils % 19 % (0-9) Lymphocytes % 2 % (24-48) Eosinophils % 1 % (0-5) Metamyelocytes % 1 % (0-0) Myelocytes % 1 % (0-0) Toxic Granulation Slight Platelet Estimate Increased (ADEQUATE) Giant Platelets Few Polychromasia Mod Hypochromasia Mod Poikilocytosis Mod Anisocytosis Marked Spherocytes Few Schistocytes Few Prothrombin Time 19.7 SEC (11.7-14.0) Prothromb Time International Ratio 1.8 (0.8-1.1) Activated Partial Thromboplast Time 45 SEC (24-38) Sodium Level 139 mmol/L (136-145) Potassium Level 4.2 mmol/L (3.5-5.1) Chloride Level 101 mmol/L (98-107) Carbon Dioxide Level 29 mmol/L (21-32) Anion Gap 9 (6-14) Blood Urea Nitrogen 69 mg/dL (7-20) Creatinine 7.2 mg/dL (0.6-1.0) Estimated GFR (Cockcroft-Gault) 5.6 BUN/Creatinine Ratio 10 (6-20) Glucose Level 79 mg/dL (70-99) Lactic Acid Level 2.7 mmol/L (0.4-2.0) Calcium Level 7.6 mg/dL (8.5-10.1) Magnesium Level 2.0 mg/dL (1.8-2.4) Total Bilirubin 0.3 mg/dL (0.2-1.0) Aspartate Amino Transf (AST/SGOT) 70 U/L (15-37) Alanine Aminotransferase (ALT/SGPT) 11 U/L (14-59) Alkaline Phosphatase 125 U/L (46-116) Total Protein 4.7 g/dL (6.4-8.2) Albumin 2.1 g/dL (3.4-5.0) Albumin/Globulin Ratio 0.8 (1.0-1.7) Glucose (Fingerstick) 67 mg/dL (70-99) 140 mg/dL (70-99) Stool Occult Blood Positive (NEG) Test 02/14/17 22:10 02/14/17 22:45 02/14/17 23:05 02/14/17 23:30 Glucose (Fingerstick) 108 mg/dL (70-99) 73 mg/dL (70-99) 151 mg/dL (70-99) Urine Collection Type U cath Urine Color Yellow Urine Clarity Cloudy Urine pH 5.0 Urine Specific [place] 1.020 Urine Protein >=300 mg/dL (NEG-TRACE) Urine Glucose (UA) Negative mg/dL (NEG) Urine Ketones (Stick) Negative mg/dL (NEG) Urine Blood Negative (NEG) Urine Nitrite Negative (NEG) Urine Bilirubin Negative (NEG) Urine Urobilinogen Dipstick 0.2 mg/dL (0.2 mg/dL) Urine Leukocyte Esterase Small (NEG) Urine RBC Occ /HPF (0-2) Urine WBC 1-4 /HPF (0-4) Urine Squamous Epithelial Cells Occ /LPF Urine Transitional Epithelial Cells Occ /LPF Urine Bacteria Few /HPF (0-FEW) Urine Hyaline Casts Few /HPF Urine Granular Casts Occasional /HPF Urine Waxy Casts Occasional /HPF Urine Mucus Slight /LPF Urine Opiates Screen Pos (NEG) Urine Methadone Screen Neg (NEG) Urine Barbiturates Neg (NEG) Urine Phencyclidine Screen Neg (NEG) Urine Amphetamine/Methamphetamine Neg (NEG) Urine Benzodiazepines Screen Neg (NEG) Urine Cocaine Screen Neg (NEG) Urine Cannabinoids Screen Neg (NEG) Urine Ethyl Alcohol Neg (NEG) Test 02/14/17 23:45 02/15/17 01:15 Lactic Acid Level 2.9 mmol/L (0.4-2.0) 2.9 mmol/L (0.4-2.0) Objective Assessment Sepsis - POA (hypothermia/leukocytosis/lactic acidosis) Bandemia Abd hematoma - Possibly infected CKD - needing PD but not yet started (states PD cath placed 02/09) Acute Encephalopathy DM Bilat airspace disease Polycythemia Vera Plan Plan of Care D/c Levofloxacin Begin Zosyn/Micafungin Cont Vanc Add procalcitonin/lipase/TSH this am F/u labs in am and cults D/w [facility] micro this am. No cults from last admit Reviewed PP notes Thank you 35 mins CC time # [id number] FRANNY WOODRUFF MD Feb 15, 2017 07:55
[2017-02-15] MEDS: PIPERACILLIN/TAZOBACTAM 2.25 GM in IV NORMAL SALINE 50ML 50 ML IV SCH ×4 (08:43→23:41)
[2017-02-15] MEDS: fentaNYL PF VIAL 100 MCG/2 ML VIAL IV PRN ×5 (09:16→23:49)
[2017-02-15 09:30] LABS: BASO # 0.3 x10^3/uL (0.0-0.2); BASO % 1 % (0-3); EOS % 1 % (0-3); HEMATOCRIT 26.9 % (36.0-47.0); HEMOGLOBIN 8.7 g/dL (12.0-15.5); LYMPH # 1.2 x10^3/uL (1.0-4.8); LYMPH % 2 % (24-48); MEAN CORPUSCULAR HEMOGLOBIN 27 pg (25-35); MEAN CORPUSCULAR HGB CONC 32 g/dL (31-37); MEAN CORPUSCULAR VOLUME 85 fL (79-100); MONO % 2 % (0-9); NEUT % 95 % (31-73); PLATELET COUNT 841 x10^3/uL (140-400); RED BLOOD COUNT 3.17 x10^6/uL (3.50-5.40); RED CELL DISTRIBUTION WIDTH 20.6 % (11.5-14.5)
--- NOTE | 2017-02-15 09:46 | PDOC ---
PROGRESS NOTES Chief Complaint Chief Complaint 1. 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 Severe thormbocytosis, reactive likely from # 1 4. ESRD recent PD cath insertion [facility] last week 5. TJ on ESRD, creat 7,.2, - k and bicarb ok, insert izquierdo now 6. Elevated LFTs, alk phosphatase in the background of severe hypotension and MDS 7. Hypotensive shock, hemorrhagic? anemia? SIRS vs sepsis with ORGAN dysfcn 8. Elevated iNR 1.8 - no bleeding obvious so far 9. Abd pain - per report, stat CT 10. Hypothermia, hypoglycemia - nedra hugger, desxtrose -given and BS better 11. Acute metabolic enceph - RESOLVED AFTER 24 hrs History of Present Illness History of Present Illness Wide awake! seen in ICU COmplains of 03/14 abd pain HD not done in [facility] - sounds like there was no urgency? PD cath was placed there and has never been used UO marginal Was on dopa gtt last night Off pressors this AM and systolic 170s this AM GS has seen pt last night - no surgical plans INR 1.8 - got 1 FFP RPt CBC and BMP pending Rpt lactate same at 2.9 ID called on board as triggered sepsis protocol GOt 3 pRBC PLAN: Await labs this AM Get records from [facility] ID has upscaled abx to broader spectrum TRansfuse prn Supportoive care STart IV pain meds I did order PT/OT on board - does not necessarily mean to start today IVF since NPO and kidney numbers Would keep NPO for now - PPI IV to cont SCDs only NO nephrotoxins, blood thinners, ASA etc 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 CAme from [facility] last night Vitals Vitals Vital Signs Date Time Temp Pulse Resp B/P (MAP) Pulse Ox O2 Delivery O2 Flow Rate FiO2 02/15/17 09:16 27 98 Room Air 02/15/17 06:00 98.1 93 147/89 (108) 98.1 Physical Exam General: Alert, Cooperative, No acute distress Abdomen: Soft, Other (min TTP, distended, dressings intact on cath sites) Extremities: No clubbing, No cyanosis, No edema, Normal pulses, No tenderness/ swelling Skin: No rashes, No breakdown, No significant lesion Labs LABS Laboratory Tests Test 02/14/17 21:00 02/14/17 21:18 02/14/17 21:45 02/14/17 21:57 White Blood Count 67.7 x10^3/uL (4.0-11.0) Red Blood Count 1.56 x10^6/uL (3.50-5.40) Hemoglobin 4.2 g/dL (12.0-15.5) Hematocrit 14.7 % (36.0-47.0) Mean Corpuscular Volume 94 fL (79-100) Mean Corpuscular Hemoglobin 27 pg (25-35) Mean Corpuscular Hemoglobin Concent 29 g/dL (31-37) Red Cell Distribution Width 27.8 % (11.5-14.5) Platelet Count 864 x10^3/uL (140-400) Neutrophils (%) (Auto) 93 % (31-73) Lymphocytes (%) (Auto) 3 % (24-48) Monocytes (%) (Auto) 3 % (0-9) Eosinophils (%) (Auto) 1 % (0-3) Basophils (%) (Auto) 1 % (0-3) Neutrophils # (Auto) 62.7 x10^3uL (1.8-7.7) Lymphocytes # (Auto) 2.0 x10^3/uL (1.0-4.8) Monocytes # (Auto) 1.7 x10^3/uL (0.0-1.1) Eosinophils # (Auto) 0.5 x10^3/uL (0.0-0.7) Basophils # (Auto) 0.8 x10^3/uL (0.0-0.2) Segmented Neutrophils % 76 % (35-66) Band Neutrophils % 19 % (0-9) Lymphocytes % 2 % (24-48) Eosinophils % 1 % (0-5) Metamyelocytes % 1 % (0-0) Myelocytes % 1 % (0-0) Toxic Granulation Slight Platelet Estimate Increased (ADEQUATE) Giant Platelets Few Polychromasia Mod Hypochromasia Mod Poikilocytosis Mod Anisocytosis Marked Spherocytes Few Schistocytes Few Prothrombin Time 19.7 SEC (11.7-14.0) Prothromb Time International Ratio 1.8 (0.8-1.1) Activated Partial Thromboplast Time 45 SEC (24-38) Sodium Level 139 mmol/L (136-145) Potassium Level 4.2 mmol/L (3.5-5.1) Chloride Level 101 mmol/L (98-107) Carbon Dioxide Level 29 mmol/L (21-32) Anion Gap 9 (6-14) Blood Urea Nitrogen 69 mg/dL (7-20) Creatinine 7.2 mg/dL (0.6-1.0) Estimated GFR (Cockcroft-Gault) 5.6 BUN/Creatinine Ratio 10 (6-20) Glucose Level 79 mg/dL (70-99) Lactic Acid Level 2.7 mmol/L (0.4-2.0) Calcium Level 7.6 mg/dL (8.5-10.1) Magnesium Level 2.0 mg/dL (1.8-2.4) Total Bilirubin 0.3 mg/dL (0.2-1.0) Aspartate Amino Transf (AST/SGOT) 70 U/L (15-37) Alanine Aminotransferase (ALT/SGPT) 11 U/L (14-59) Alkaline Phosphatase 125 U/L (46-116) Total Protein 4.7 g/dL (6.4-8.2) Albumin 2.1 g/dL (3.4-5.0) Albumin/Globulin Ratio 0.8 (1.0-1.7) Glucose (Fingerstick) 67 mg/dL (70-99) 140 mg/dL (70-99) Stool Occult Blood Positive (NEG) Test 02/14/17 22:10 02/14/17 22:45 02/14/17 23:05 02/14/17 23:30 Glucose (Fingerstick) 108 mg/dL (70-99) 73 mg/dL (70-99) 151 mg/dL (70-99) Urine Collection Type U cath Urine Color Yellow Urine Clarity Cloudy Urine pH 5.0 Urine Specific [place] 1.020 Urine Protein >=300 mg/dL (NEG-TRACE) Urine Glucose (UA) Negative mg/dL (NEG) Urine Ketones (Stick) Negative mg/dL (NEG) Urine Blood Negative (NEG) Urine Nitrite Negative (NEG) Urine Bilirubin Negative (NEG) Urine Urobilinogen Dipstick 0.2 mg/dL (0.2 mg/dL) Urine Leukocyte Esterase Small (NEG) Urine RBC Occ /HPF (0-2) Urine WBC 1-4 /HPF (0-4) Urine Squamous Epithelial Cells Occ /LPF Urine Transitional Epithelial Cells Occ /LPF Urine Bacteria Few /HPF (0-FEW) Urine Hyaline Casts Few /HPF Urine Granular Casts Occasional /HPF Urine Waxy Casts Occasional /HPF Urine Mucus Slight /LPF Urine Opiates Screen Pos (NEG) Urine Methadone Screen Neg (NEG) Urine Barbiturates Neg (NEG) Urine Phencyclidine Screen Neg (NEG) Urine Amphetamine/Methamphetamine Neg (NEG) Urine Benzodiazepines Screen Neg (NEG) Urine Cocaine Screen Neg (NEG) Urine Cannabinoids Screen Neg (NEG) Urine Ethyl Alcohol Neg (NEG) Test 02/14/17 23:45 02/15/17 01:15 02/15/17 08:16 02/15/17 09:00 Lactic Acid Level 2.9 mmol/L (0.4-2.0) 2.9 mmol/L (0.4-2.0) Glucose (Fingerstick) 112 mg/dL (70-99) White Blood Count 67.0 x10^3/uL (4.0-11.0) Red Blood Count 3.17 x10^6/uL (3.50-5.40) Hemoglobin 8.7 g/dL (12.0-15.5) Hematocrit 26.9 % (36.0-47.0) Mean Corpuscular Volume 85 fL (79-100) Mean Corpuscular Hemoglobin 27 pg (25-35) Mean Corpuscular Hemoglobin Concent 32 g/dL (31-37) Red Cell Distribution Width 20.6 % (11.5-14.5) Platelet Count 841 x10^3/uL (140-400) Neutrophils (%) (Auto) 95 % (31-73) Lymphocytes (%) (Auto) 2 % (24-48) Monocytes (%) (Auto) 2 % (0-9) Eosinophils (%) (Auto) 1 % (0-3) Basophils (%) (Auto) 1 % (0-3) Neutrophils # (Auto) 63.8 x10^3uL (1.8-7.7) Lymphocytes # (Auto) 1.2 x10^3/uL (1.0-4.8) Monocytes # (Auto) 1.4 x10^3/uL (0.0-1.1) Eosinophils # (Auto) 0.3 x10^3/uL (0.0-0.7) Basophils # (Auto) 0.3 x10^3/uL (0.0-0.2) Review of Systems Review of Systems 03/14 abd pain Assessment and Plan Assessmemt and Plan Problems Medical Problems: (1) Anemia Status: Acute (2) Coagulopathy Status: Acute (3) Congestive heart failure Status: Acute (4) End stage renal disease Status: Acute (5) Hypoglycemia Status: Acute (6) Hypotension Status: Acute (7) Myelodysplastic syndrome Status: Acute Problems: Comment Review of Relevant I have reviewed the following items laure (where applicable) has been applied. Labs Laboratory Tests Test 02/14/17 21:00 02/14/17 21:18 02/14/17 21:45 02/14/17 21:57 White Blood Count 67.7 x10^3/uL (4.0-11.0) Red Blood Count 1.56 x10^6/uL (3.50-5.40) Hemoglobin 4.2 g/dL (12.0-15.5) Hematocrit 14.7 % (36.0-47.0) Mean Corpuscular Volume 94 fL (79-100) Mean Corpuscular Hemoglobin 27 pg (25-35) Mean Corpuscular Hemoglobin Concent 29 g/dL (31-37) Red Cell Distribution Width 27.8 % (11.5-14.5) Platelet Count 864 x10^3/uL (140-400) Neutrophils (%) (Auto) 93 % (31-73) Lymphocytes (%) (Auto) 3 % (24-48) Monocytes (%) (Auto) 3 % (0-9) Eosinophils (%) (Auto) 1 % (0-3) Basophils (%) (Auto) 1 % (0-3) Neutrophils # (Auto) 62.7 x10^3uL (1.8-7.7) Lymphocytes # (Auto) 2.0 x10^3/uL (1.0-4.8) Monocytes # (Auto) 1.7 x10^3/uL (0.0-1.1) Eosinophils # (Auto) 0.5 x10^3/uL (0.0-0.7) Basophils # (Auto) 0.8 x10^3/uL (0.0-0.2) Segmented Neutrophils % 76 % (35-66) Band Neutrophils % 19 % (0-9) Lymphocytes % 2 % (24-48) Eosinophils % 1 % (0-5) Metamyelocytes % 1 % (0-0) Myelocytes % 1 % (0-0) Toxic Granulation Slight Platelet Estimate Increased (ADEQUATE) Giant Platelets Few Polychromasia Mod Hypochromasia Mod Poikilocytosis Mod Anisocytosis Marked Spherocytes Few Schistocytes Few Prothrombin Time 19.7 SEC (11.7-14.0) Prothromb Time International Ratio 1.8 (0.8-1.1) Activated Partial Thromboplast Time 45 SEC (24-38) Sodium Level 139 mmol/L (136-145) Potassium Level 4.2 mmol/L (3.5-5.1) Chloride Level 101 mmol/L (98-107) Carbon Dioxide Level 29 mmol/L (21-32) Anion Gap 9 (6-14) Blood Urea Nitrogen 69 mg/dL (7-20) Creatinine 7.2 mg/dL (0.6-1.0) Estimated GFR (Cockcroft-Gault) 5.6 BUN/Creatinine Ratio 10 (6-20) Glucose Level 79 mg/dL (70-99) Lactic Acid Level 2.7 mmol/L (0.4-2.0) Calcium Level 7.6 mg/dL (8.5-10.1) Magnesium Level 2.0 mg/dL (1.8-2.4) Total Bilirubin 0.3 mg/dL (0.2-1.0) Aspartate Amino Transf (AST/SGOT) 70 U/L (15-37) Alanine Aminotransferase (ALT/SGPT) 11 U/L (14-59) Alkaline Phosphatase 125 U/L (46-116) Total Protein 4.7 g/dL (6.4-8.2) Albumin 2.1 g/dL (3.4-5.0) Albumin/Globulin Ratio 0.8 (1.0-1.7) Glucose (Fingerstick) 67 mg/dL (70-99) 140 mg/dL (70-99) Stool Occult Blood Positive (NEG) Test 02/14/17 22:10 02/14/17 22:45 02/14/17 23:05 02/14/17 23:30 Glucose (Fingerstick) 108 mg/dL (70-99) 73 mg/dL (70-99) 151 mg/dL (70-99) Urine Collection Type U cath Urine Color Yellow Urine Clarity Cloudy Urine pH 5.0 Urine Specific [place] 1.020 Urine Protein >=300 mg/dL (NEG-TRACE) Urine Glucose (UA) Negative mg/dL (NEG) Urine Ketones (Stick) Negative mg/dL (NEG) Urine Blood Negative (NEG) Urine Nitrite Negative (NEG) Urine Bilirubin Negative (NEG) Urine Urobilinogen Dipstick 0.2 mg/dL (0.2 mg/dL) Urine Leukocyte Esterase Small (NEG) Urine RBC Occ /HPF (0-2) Urine WBC 1-4 /HPF (0-4) Urine Squamous Epithelial Cells Occ /LPF Urine Transitional Epithelial Cells Occ /LPF Urine Bacteria Few /HPF (0-FEW) Urine Hyaline Casts Few /HPF Urine Granular Casts Occasional /HPF Urine Waxy Casts Occasional /HPF Urine Mucus Slight /LPF Urine Opiates Screen Pos (NEG) Urine Methadone Screen Neg (NEG) Urine Barbiturates Neg (NEG) Urine Phencyclidine Screen Neg (NEG) Urine Amphetamine/Methamphetamine Neg (NEG) Urine Benzodiazepines Screen Neg (NEG) Urine Cocaine Screen Neg (NEG) Urine Cannabinoids Screen Neg (NEG) Urine Ethyl Alcohol Neg (NEG) Test 02/14/17 23:45 02/15/17 01:15 02/15/17 08:16 02/15/17 09:00 Lactic Acid Level 2.9 mmol/L (0.4-2.0) 2.9 mmol/L (0.4-2.0) Glucose (Fingerstick) 112 mg/dL (70-99) White Blood Count 67.0 x10^3/uL (4.0-11.0) Red Blood Count 3.17 x10^6/uL (3.50-5.40) Hemoglobin 8.7 g/dL (12.0-15.5) Hematocrit 26.9 % (36.0-47.0) Mean Corpuscular Volume 85 fL (79-100) Mean Corpuscular Hemoglobin 27 pg (25-35) Mean Corpuscular Hemoglobin Concent 32 g/dL (31-37) Red Cell Distribution Width 20.6 % (11.5-14.5) Platelet Count 841 x10^3/uL (140-400) Neutrophils (%) (Auto) 95 % (31-73) Lymphocytes (%) (Auto) 2 % (24-48) Monocytes (%) (Auto) 2 % (0-9) Eosinophils (%) (Auto) 1 % (0-3) Basophils (%) (Auto) 1 % (0-3) Neutrophils # (Auto) 63.8 x10^3uL (1.8-7.7) Lymphocytes # (Auto) 1.2 x10^3/uL (1.0-4.8) Monocytes # (Auto) 1.4 x10^3/uL (0.0-1.1) Eosinophils # (Auto) 0.3 x10^3/uL (0.0-0.7) Basophils # (Auto) 0.3 x10^3/uL (0.0-0.2) Laboratory Tests Test 02/14/17 21:00 02/14/17 21:18 02/14/17 21:45 02/14/17 21:57 White Blood Count 67.7 x10^3/uL (4.0-11.0) Red Blood Count 1.56 x10^6/uL (3.50-5.40) Hemoglobin 4.2 g/dL (12.0-15.5) Hematocrit 14.7 % (36.0-47.0) Mean Corpuscular Volume 94 fL (79-100) Mean Corpuscular Hemoglobin 27 pg (25-35) Mean Corpuscular Hemoglobin Concent 29 g/dL (31-37) Red Cell Distribution Width 27.8 % (11.5-14.5) Platelet Count 864 x10^3/uL (140-400) Neutrophils (%) (Auto) 93 % (31-73) Lymphocytes (%) (Auto) 3 % (24-48) Monocytes (%) (Auto) 3 % (0-9) Eosinophils (%) (Auto) 1 % (0-3) Basophils (%) (Auto) 1 % (0-3) Neutrophils # (Auto) 62.7 x10^3uL (1.8-7.7) Lymphocytes # (Auto) 2.0 x10^3/uL (1.0-4.8) Monocytes # (Auto) 1.7 x10^3/uL (0.0-1.1) Eosinophils # (Auto) 0.5 x10^3/uL (0.0-0.7) Basophils # (Auto) 0.8 x10^3/uL (0.0-0.2) Segmented Neutrophils % 76 % (35-66) Band Neutrophils % 19 % (0-9) Lymphocytes % 2 % (24-48) Eosinophils % 1 % (0-5) Metamyelocytes % 1 % (0-0) Myelocytes % 1 % (0-0) Toxic Granulation Slight Platelet Estimate Increased (ADEQUATE) Giant Platelets Few Polychromasia Mod Hypochromasia Mod Poikilocytosis Mod Anisocytosis Marked Spherocytes Few Schistocytes Few Prothrombin Time 19.7 SEC (11.7-14.0) Prothromb Time International Ratio 1.8 (0.8-1.1) Activated Partial Thromboplast Time 45 SEC (24-38) Sodium Level 139 mmol/L (136-145) Potassium Level 4.2 mmol/L (3.5-5.1) Chloride Level 101 mmol/L (98-107) Carbon Dioxide Level 29 mmol/L (21-32) Anion Gap 9 (6-14) Blood Urea Nitrogen 69 mg/dL (7-20) Creatinine 7.2 mg/dL (0.6-1.0) Estimated GFR (Cockcroft-Gault) 5.6 BUN/Creatinine Ratio 10 (6-20) Glucose Level 79 mg/dL (70-99) Lactic Acid Level 2.7 mmol/L (0.4-2.0) Calcium Level 7.6 mg/dL (8.5-10.1) Magnesium Level 2.0 mg/dL (1.8-2.4) Total Bilirubin 0.3 mg/dL (0.2-1.0) Aspartate Amino Transf (AST/SGOT) 70 U/L (15-37) Alanine Aminotransferase (ALT/SGPT) 11 U/L (14-59) Alkaline Phosphatase 125 U/L (46-116) Total Protein 4.7 g/dL (6.4-8.2) Albumin 2.1 g/dL (3.4-5.0) Albumin/Globulin Ratio 0.8 (1.0-1.7) Glucose (Fingerstick) 67 mg/dL (70-99) 140 mg/dL (70-99) Stool Occult Blood Positive (NEG) Test 02/14/17 22:10 02/14/17 22:45 02/14/17 23:05 02/14/17 23:30 Glucose (Fingerstick) 108 mg/dL (70-99) 73 mg/dL (70-99) 151 mg/dL (70-99) Urine Collection Type U cath Urine Color Yellow Urine Clarity Cloudy Urine pH 5.0 Urine Specific [place] 1.020 Urine Protein >=300 mg/dL (NEG-TRACE) Urine Glucose (UA) Negative mg/dL (NEG) Urine Ketones (Stick) Negative mg/dL (NEG) Urine Blood Negative (NEG) Urine Nitrite Negative (NEG) Urine Bilirubin Negative (NEG) Urine Urobilinogen Dipstick 0.2 mg/dL (0.2 mg/dL) Urine Leukocyte Esterase Small (NEG) Urine RBC Occ /HPF (0-2) Urine WBC 1-4 /HPF (0-4) Urine Squamous Epithelial Cells Occ /LPF Urine Transitional Epithelial Cells Occ /LPF Urine Bacteria Few /HPF (0-FEW) Urine Hyaline Casts Few /HPF Urine Granular Casts Occasional /HPF Urine Waxy Casts Occasional /HPF Urine Mucus Slight /LPF Urine Opiates Screen Pos (NEG) Urine Methadone Screen Neg (NEG) Urine Barbiturates Neg (NEG) Urine Phencyclidine Screen Neg (NEG) Urine Amphetamine/Methamphetamine Neg (NEG) Urine Benzodiazepines Screen Neg (NEG) Urine Cocaine Screen Neg (NEG) Urine Cannabinoids Screen Neg (NEG) Urine Ethyl Alcohol Neg (NEG) Test 02/14/17 23:45 02/15/17 01:15 02/15/17 08:16 02/15/17 09:00 Lactic Acid Level 2.9 mmol/L (0.4-2.0) 2.9 mmol/L (0.4-2.0) Glucose (Fingerstick) 112 mg/dL (70-99) White Blood Count 67.0 x10^3/uL (4.0-11.0) Red Blood Count 3.17 x10^6/uL (3.50-5.40) Hemoglobin 8.7 g/dL (12.0-15.5) Hematocrit 26.9 % (36.0-47.0) Mean Corpuscular Volume 85 fL (79-100) Mean Corpuscular Hemoglobin 27 pg (25-35) Mean Corpuscular Hemoglobin Concent 32 g/dL (31-37) Red Cell Distribution Width 20.6 % (11.5-14.5) Platelet Count 841 x10^3/uL (140-400) Neutrophils (%) (Auto) 95 % (31-73) Lymphocytes (%) (Auto) 2 % (24-48) Monocytes (%) (Auto) 2 % (0-9) Eosinophils (%) (Auto) 1 % (0-3) Basophils (%) (Auto) 1 % (0-3) Neutrophils # (Auto) 63.8 x10^3uL (1.8-7.7) Lymphocytes # (Auto) 1.2 x10^3/uL (1.0-4.8) Monocytes # (Auto) 1.4 x10^3/uL (0.0-1.1) Eosinophils # (Auto) 0.3 x10^3/uL (0.0-0.7) Basophils # (Auto) 0.3 x10^3/uL (0.0-0.2) Medications Current Medications Dextrose (Dextrose 50%-Water Syringe) 25 gm STK-MED ONCE IV ; Start 02/14/17 at 21:20; Stop 02/14/17 at 21:21; Status DC Sodium Chloride 2,040 ml @ 510 mls/hr Q4H IV Last administered on 02/14/17 21 :33; Start 02/14/17 at 21:33; Stop 02/14/17 at 22:05; Status DC Vancomycin HCl (Vanco Per Pharmacy) 1 each PRN DAILY PRN MC SEE COMMENTS Last administered on 02/14/17 23:45; Start 02/14/17 at 22:00 Levofloxacin/ Dextrose (Levaquin Per Pharmacy) 1 each PRN DAILY PRN MC SEE COMMENTS; Start 02/14/17 at 23:00; Stop 02/15/17 at 07:38; Status DC Vancomycin HCl 1.75 gm/Sodium Chloride 500 ml @ 250 mls/hr 1X ONCE IV Last administered on 02/14/17 22:21; Start 02/14/17 at 22:15; Stop 02/15/17 at 00:14 ; Status DC Sodium Chloride 1,000 ml @ 510 mls/hr Q1H58M IV ; Start 02/14/17 at 22:15; Stop 02/15/17 at 01:32; Status DC Levofloxacin/ Dextrose 100 ml @ 100 mls/hr Q48H IV Last administered on 22:58; Start 02/14/17 at 23:00; Stop 02/15/17 at 07:38; Status DC Dextrose (Dextrose 50%-Water Syringe) 25 gm 1X ONCE IV Last administered on 22:52; Start 02/14/17 at 23:00; Stop 02/14/17 at 23:01; Status DC Dextrose (Dextrose 50%-Water Syringe) 25 gm 1X ONCE IV ; Start 02/14/17 at 23: 00; Stop 02/14/17 at 23:01; Status DC Furosemide (Lasix) 40 mg 1X PRN PRN IV blood transfusion; Start 02/14/17 at 23: 00; Stop 02/15/17 at 22:59 Dopamine HCl/ Dextrose 250 ml @ 12.688 mls/ hr CONT PRN IV SEE I/O RECORD Last administered on 02/14/17 23:44; Start 02/14/17 at 23:15 Ondansetron HCl (Zofran) 4 mg PRN Q6HRS PRN IV NAUSEA/VOMITING Last administered on 02/15/17 05:47; Start 02/14/17 at 23:15 Famotidine (Pepcid) 10 mg BID IVP ; Start 02/15/17 at 09:00 Acetaminophen (Tylenol) 120 mg PRN Q6HRS PRN AK MILD PAIN / TEMP; Start at 23:15 Acetaminophen (Tylenol) 500 mg PRN Q6HRS PRN PO MILD PAIN / TEMP; Start at 23:15 Vancomycin HCl 1 each 1X ONCE MC ; Start 02/16/17 at 22:30; Stop 02/16/17 at 22 :31 Ondansetron HCl (Zofran) 4 mg PRN Q8HRS PRN IV NAUSEA/VOMITING; Start 02/14/17 at 23:45; Stop 02/15/17 at 23:44 Dextrose/Sodium Chloride 1,000 ml @ 125 mls/hr 1X ONCE IV ; Start 02/14/17 at 23:45; Stop 02/15/17 at 07:44; Status DC Piperacillin Sod/ Tazobactam Sod 2.25 gm/Sodium Chloride 50 ml @ 100 mls/hr Q6HRS IV Last administered on 02/15/17 08:43; Start 02/15/17 at 07:30 Micafungin Sodium 100 mg/Dextrose 100 ml @ 100 mls/hr Q24H IV ; Start 02/15/17 at 08:00 Fentanyl Citrate (Fentanyl 2ml Vial) 50 mcg PRN Q2HR PRN IV PAIN Last administered on 02/15/17 09:16; Start 02/15/17 at 09:15 Morphine Sulfate 4 mg PRN Q2HR PRN IV PAIN; Start 02/15/17 at 09:45 Active Scripts Active Reported Lantus Solostar (Insulin Glargine,Hum.rec.anlog) 100 Unit/1 Ml Insuln.pen 22 Unit SQ QHS Droxia (Hydroxyurea) 200 Mg Capsule 200 Mg PO DAILY Feosol (Ferrous Sulfate) 325 Mg Tablet 325 Mg PO DAILY Coreg (Carvedilol) 12.5 Mg Tablet 1 Tab PO BID Bumetanide 2 Mg Tablet 2 Tab PO BID Aspir 81 (Aspirin) 81 Mg Tablet.dr 1 Tab PO DAILY Allopurinol 300 Mg Tablet 1 Tab PO DAILY Advair 250-50 Diskus (Fluticasone/Salmeterol) 1 Each Disk.w.dev 1 Puff IH Q12HR Zetia (Ezetimibe) 10 Mg Tablet 0.5 Tab PO DAILY Zemplar (Paricalcitol) 1 Mcg Capsule 1 Cap PO DAILY Sodium Bicarbonate 650 Mg Tablet 850 Mg PO BID Sensipar (Cinacalcet Hcl) 30 Mg Tablet 30 Mg PO QODAY Renvela (Sevelamer Carbonate) 800 Mg Tablet 2 Tab PO TID Proair Hfa Inhaler (Albuterol Sulfate) 8.5 Gm Hfa.aer.ad 2 Puff INH PRN Q4HRS PRN Omeprazole 40 Mg Capsule.dr 1 Cap PO DAILY Percocet 5-325 Mg Tablet (Oxycodone/Acetaminophen) 1 Each Tablet 1-2 Tab PO PRN Q6HRS PRN Novolog Flexpen (Insulin Aspart) 100 Unit/1 Ml Insuln.pen 15 Unit SQ DAILY Novolog Flexpen (Insulin Aspart) 100 Unit/1 Ml Insuln.pen 12 Unit SQ BIDACBL Norvasc (Amlodipine Besylate) 10 Mg Tablet 10 Mg PO DAILY Miralax (Polyethylene Glycol 3350) 17 Gm Powd.pack 1 Packet PO DAILY Lipitor (Atorvastatin Calcium) 40 Mg Tablet 1 Tab PO DAILY Lidocaine 1 Each Adh..patch 1 Each TP DAILY Vitals/I & O Vital Sign - Last 24 Hours 02/14/17 02/14/17 02/14/17 02/14/17 20:59 21:10 21:15 21:20 Temp 93.7 93.7 Pulse 65 70 67 69 Resp 16 15 14 14 B/P (MAP) 101/50 (67) 101/50 (67) 102/53 (69) 81/44 (56) Pulse Ox 100 100 100 100 O2 Delivery Room Air Room Air Room Air Room Air 02/14/17 02/14/17 02/14/17 02/14/17 21:22 21:25 21:30 21:35 Pulse 68 69 68 68 Resp 18 19 19 16 B/P (MAP) 108/51 (70) 93/50 (64) 89/52 (64) 94/49 (64) Pulse Ox 98 98 100 100 O2 Delivery Room Air Room Air Room Air Room Air 02/14/17 02/14/17 02/14/17 02/14/17 21:40 21:45 21:50 21:55 Pulse 66 66 68 68 Resp 17 12 18 22 B/P (MAP) 92/49 (63) 87/46 (60) 85/49 (61) 93/51 (65) Pulse Ox 100 100 100 100 O2 Delivery Room Air Room Air Room Air Room Air 02/14/17 02/14/17 02/14/17 02/14/17 22:00 22:05 22:10 22:15 Pulse 64 65 65 66 Resp 15 17 13 12 B/P (MAP) 80/44 (56) 88/52 (64) 86/49 (61) 88/49 (62) Pulse Ox 100 100 100 99 O2 Delivery Room Air Room Air Room Air Room Air 02/14/17 02/14/17 02/14/17 02/14/17 22:20 22:25 22:30 22:35 Pulse 63 62 62 67 Resp 11 10 11 15 B/P (MAP) 79/44 (56) 77/39 (52) 75/39 (51) 95/49 (64) Pulse Ox 100 99 99 100 O2 Delivery Room Air Room Air Room Air Room Air 02/14/17 02/14/17 02/14/17 02/14/17 22:40 22:45 22:47 22:50 Temp 92.9 92.9 Pulse 68 70 69 Resp 14 15 15 B/P (MAP) 99/51 (67) 89/52 (64) 95/53 (67) Pulse Ox 98 100 100 O2 Delivery Room Air Room Air Room Air 02/14/17 02/14/17 02/14/17 02/14/17 22:55 23:00 23:10 23:15 Pulse 71 71 72 71 Resp 13 10 14 14 B/P (MAP) 90/51 (64) 84/49 (61) 82/45 (57) 87/52 (64) Pulse Ox 98 100 100 100 O2 Delivery Room Air Room Air Room Air Room Air 02/14/17 02/14/17 02/14/17 02/14/17 23:20 23:24 23:25 23:30 Temp 91.8 93.2 91.8 93.2 Pulse 69 74 66 71 Resp 14 14 11 12 B/P (MAP) 87/52 (64) 81/46 86/50 (62) 82/47 (59) Pulse Ox 100 100 100 O2 Delivery Room Air Room Air Room Air 02/14/17 02/14/17 02/14/17 02/14/17 23:34 23:35 23:40 23:45 Temp 93.2 93.2 Pulse 70 69 69 69 Resp 12 10 10 10 B/P (MAP) 82/47 73/39 (50) 73/40 (51) 70/39 (49) Pulse Ox 99 98 98 O2 Delivery Room Air Room Air Room Air 02/14/17 02/14/17 02/14/17 02/14/17 23:47 23:50 23:55 23:55 Temp 92.7 93.2 92.7 93.2 Pulse 69 68 68 69 Resp 12 10 12 10 B/P (MAP) 70/39 68/37 (47) 68/37 71/40 (50) Pulse Ox 97 97 O2 Delivery Room Air Room Air 02/15/17 02/15/17 02/15/17 02/15/17 00:00 00:04 00:05 00:10 Temp 93.6 93.6 Pulse 74 77 78 82 Resp 10 10 10 10 B/P (MAP) 76/42 (53) 76/42 81/45 (57) 82/45 (57) Pulse Ox 95 96 96 O2 Delivery Room Air Room Air Room Air 02/15/17 02/15/17 02/15/17 02/15/17 00:18 00:21 00:45 00:45 Temp 94.1 94.3 94.1 94.3 Pulse 86 87 92 Resp 10 10 11 B/P (MAP) 84/46 88/52 (64) 103/49 (67) Pulse Ox 97 99 O2 Delivery Room Air Room Air Room Air 02/15/17 02/15/17 02/15/17 02/15/17 01:00 01:19 01:30 01:45 Temp 95.4 95.2 95.7 96.1 95.4 95.2 95.7 96.1 Pulse 94 93 90 99 Resp 10 12 10 8 B/P (MAP) 99/49 (66) 101/54 114/53 (73) 114/54 (74) Pulse Ox 99 99 99 O2 Delivery Room Air Room Air Room Air 02/15/17 02/15/17 02/15/17 02/15/17 02:00 03:00 03:29 04:00 Temp 96.6 97.2 97.5 97.2 96.6 97.2 97.5 97.2 Pulse 101 96 93 92 Resp 7 10 10 10 B/P (MAP) 110/57 (74) 107/49 (68) 98/45 129/62 (84) Pulse Ox 99 99 99 O2 Delivery Room Air Room Air Room Air 02/15/17 02/15/17 02/15/17 02/15/17 04:00 05:00 05:44 06:00 Temp 97.2 98.1 98.1 97.2 98.1 98.1 Pulse 104 103 93 Resp 10 18 10 B/P (MAP) 167/84 (111) 161/67 147/89 (108) Pulse Ox 99 97 O2 Delivery Room Air Room Air Room Air 02/15/17 09:16 Resp 27 Pulse Ox 98 O2 Delivery Room Air CESAR MERCHANT MD Feb 15, 2017 09:46
[2017-02-15 09:51] LABS: ALBUMIN 2.5 g/dL (3.4-5.0); CALCIUM 7.3 mg/dL (8.5-10.1); CREATININE 6.6 mg/dL (0.6-1.0); GFR 7.5; PHOSPHORUS 4.7 mg/dL (2.6-4.7); POTASSIUM 4.8 mmol/L (3.5-5.1)
[2017-02-15] MEDS: IV NORMAL SALINE 1000ML BAG 1,000 ML IV SCH ×2 (10:03→22:30)
[2017-02-15] MEDS: MICAFUNGIN 100 MG in IV DEXTROSE 5% 100 ML IV SCH (10:03)
[2017-02-15] MEDS: FAMOTIDINE 20 MG/2 ML VIAL IVP SCH ×2 (10:03→21:13)
[2017-02-15] MEDS ORDERED: PHYTONADIONE 10 MG/ML AMPUL. SQ ONE (10:30)
--- NOTE | 2017-02-15 10:52 | CONS ---
DATE OF CONSULTATION: 02/15/2017 INFECTIOUS DISEASE CONSULTATION PATIENT'S ROOM: ICU 4. REQUESTING PHYSICIAN: Dr. Guy REASON FOR CONSULTATION: Sepsis. HISTORY OF PRESENT ILLNESS: The patient is a pleasant 71-year-old, female, recently admitted to [facility] for pneumonia and congestive heart failure. She subsequently went into renal failure, uncertain if this was chronic and worsened over time or if it was acute. However, she is requiring dialysis. Again, she states she had peritoneal dialysis catheter placed last , 02/09. She was discharged from [facility] and was transferred to [facility], appears to be on 02/13 based on her admission records. She was sent to the Emergency Room at [facility] secondary to hypoglycemia. Apparently she refused dinner, was unresponsive and was found to have a blood sugar of 10. She was given D50. She was transferred to [facility] Emergency Room, where she had a white count of 67.7, hemoglobin of 4.2 and platelets were 864 with 19% bands. Her INR was 1.8. Creatinine was 7.2. She underwent a CT scan of her head, showed no evidence of acute intracranial hemorrhage. She has some mild chronic small vessel disease. The sinuses and mastoids were apparently clear. She has small retention cyst on the right sphenoid. She underwent a CT scan of the abdomen and pelvis. She had patchy consolidation in lower lobes. Heart was enlarged. Small right pleural effusion. She had high density collections bilateral pelvic side wall, 6.7 on the left, 7.9 on the right and left rectus muscle 3.3 x 5.9 x 6.8. Considerations include large pelvic hematoma, peritonitis, developing pelvic abscess is possible, rectus sheath hematoma. She has some splenomegaly and some bilateral airspace disease. Additionally, she had a low rectal temp in the 91 range and blood pressure has been in the 70s/30s. She was initially placed on dopamine, but this has been discontinued. She has now received 3 units of packed red blood cells and a unit of FFP. Currently, she is communicative. She is alert, but she is confused, uncertain where she is. She is still having some pain in the abdominal area. She denies any gross fevers, chills or sweats. She has no headaches, sinus issues. No sore throat or cough. She has occasional nausea. Denies any cramps, constipation or diarrhea. Denies any falls. No itches or rashes. PAST MEDICAL HISTORY: According to the [facility] admission record, polycythemia vera, anemia, myelofibrosis, type 2 diabetes, hyperlipidemia, hypertension, coronary artery disease, asthma, gastric ulcer, chronic kidney disease, breast cancer, non-ST elevation myocardial infarction, heart failure and acute respiratory failure. PAST SURGICAL HISTORY: Positive for bilateral mastectomies. She denies any chemotherapy or radiation with this. She has had cataract surgery. She states she had a hysterectomy as well. She is uncertain if she has had any joint surgery. PD catheter placement as mentioned above. REVIEW OF SYSTEMS: Otherwise negative, except for what is mentioned above. ALLERGIES: LISTED ANAGRELIDE, IBUPROFEN, LISINOPRIL, PSEUDOEPHEDRINE AND TRIPROLIDINE. SOCIAL HISTORY: Again, halfway resident. No apparent tobacco or alcohol. FAMILY HISTORY: Unknown. CURRENT MEDICATIONS: Include dopamine, although it has been discontinued; vancomycin; Pepcid; Lasix, vanc and Levaquin at the facility. She was on Advair, allopurinol, aspirin, Bumex, Coreg, ferrous sulfate, hydroxyurea, Lantus, lidocaine patch, NovoLog, Percocet, Prilosec, Renvela, Zemplar and Zetia. PHYSICAL EXAMINATION: VITAL SIGNS: Lowest temperature has been 91.8, current temperature is 91 rectally, pulse 93, respirations 10, blood pressure 147/89 and satting 97% on room air. CONSTITUTIONAL: She is alert. She is pleasant. She is cooperative. She does not appear to be in acute distress, but she is a little confused. HEENT: Pupils are status post cataract surgery. She has normal conjunctivae. Oral cavity and oropharynx is clear. NECK: Supple. No JVD. LUNGS: Clear to auscultation bilaterally. HEART: S1 and S2. ABDOMEN: Distended, some tender. Decreased bowel sounds. PD catheter is in place without signs of any complications. She has secondary incision that appears to be clean as well. She has a Leary in place. EXTREMITIES: Without clubbing or cyanosis. She has trace edema. SKIN: Warm to touch without signs of rash. NEUROLOGIC: Again, she is a little confused, but she is cooperative. She moves all extremities. PSYCHIATRIC: Affect is appropriate. LABORATORY VALUES: White count 67.7, hemoglobin 4.2, platelets were 864. Segs were 76, bands 19 and lymphs were 2. Creatinine was 7.2. Glucose was ____. AST 70, ALT 11 and alk phos 125. Total bili 0.3. Lactic acid was 2.7, now has increased to 2.9. Urinalysis: 1-4 wbc's, leukocyte esterase small, nitrite negative, occasional squamous and occasional transitional cells. Occult was negative. Radiology reviewed in the history of present illness. IMPRESSION: 1. Sepsis present on admission with hypothermia, leukocytosis and lactic acidosis. 2. Bandemia. 3. Abdominal hematoma, possible infected. 4. Chronic kidney disease, on peritoneal dialysis, but not yet started. Peritoneal dialysis catheter was placed on the . 5. Acute encephalopathy. 6. Diabetes. 7. Bilateral airspace disease. 8. Polycythemia. RECOMMENDATIONS: We will discontinue levofloxacin, begin Zosyn as well as micafungin. Continue vancomycin per pharmacy. We will add procalcitonin, lipase and TSH to this morning labs. Follow up labs in the morning. Follow up on cultures if required. I did call over to RUBIA Akbar this morning. She did not have any cultures from her last admission. Thank you for asking me to participate in patient's care. Should you have any questions, please do not hesitate to contact me. I spent 35 minutes of critical care time. FRANNY WOODRUFF MD DR: MATEUSZ/thomas JOB#: [id number] / [id number]
--- NOTE | 2017-02-15 10:55 | PDOC ---
Provider Note Provider Note Hem/Onc consult: 1. Myelofibrosis - resume hydrea 500 mg M/W/F 2. Hematoma - ordered Vit K and DDAVP see dictation # [id number] ALPESH BROWN MD Feb 15, 2017 10:55
[2017-02-15] MEDS ORDERED: DESMOPRESSIN 20 MCG in IV NORMAL SALINE 50ML 50 ML IV ONE (11:00)
[2017-02-15] MEDS ORDERED: LIDOCAINE 1% / SOD BICARB 8.4% 20 ML VIAL. IJ ONE ×2 (11:23→12:00)
[2017-02-15] MEDS: MORPHINE SULFATE 4 MG/ML DISP.SYRIN. IV PRN ×4 (11:24→22:34)
--- NOTE | 2017-02-15 11:26 | PDOC2 ---
CONSULT Date of Consult Date of Consult DATE: 02/15/17 TIME: 11:19 Reason for Consult Reason for Consult: CR OF ABOUT 7.0 Referring Physician Referring Physician: SHONDA Identification/Chief Complaint Chief Complaint ABD PAIN Problems: Source Source: Chart review, Patient History of Present Illness Reason for Visit: THIS IS A 71 YR OLD ADMITTED TO [facility] FOR PNA LAST WEEK. DUE TO SEVERE CKD SHE HAS A PD CATHETER PLACED THERE AND THEN SEND HOME. 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 SHE IS USED TO SEE DR DAVIES PRIOR TO HIS MCFP. LABS ON ADMIT SHOWED A CR OF 7.2 AND HGB OF 4.2. SHE HAS HAD SEVERE ABD PAIN AND IMAGES SHOWED AN ABD WALL HEMATOMA. THERE IS CONCERNS OF SEPSIS AND SBP WELL. SHE IS ALSO NOTED TO HAVE MDS WITH A WBC FO 67 Past Medical History Cardiovascular: CHF, HTN Heme/Onc: Anemia NOS, Cancer, Other (MDS) Renal/: Chronic renal failure, Other (ESDR new HD) Endocrine: Diabetes, Hyperparathyroidism Past Surgical History Past Surgical History: Other (Recent PD cath inserition) Family History Family History: Family History Unknown Social History No ALCOHOL: none Drugs: None Current Problem List Problem List Problems Medical Problems: (1) Anemia Status: Acute (2) Coagulopathy Status: Acute (3) Congestive heart failure Status: Acute (4) End stage renal disease Status: Acute (5) Hypoglycemia Status: Acute (6) Hypotension Status: Acute (7) Myelodysplastic syndrome Status: Acute Current Medications Current Medications Current Medications Dextrose (Dextrose 50%-Water Syringe) 25 gm STK-MED ONCE IV ; Start 02/14/17 at 21:20; Stop 02/14/17 at 21:21; Status DC Sodium Chloride 2,040 ml @ 510 mls/hr Q4H IV Last administered on 02/14/17 21 :33; Start 02/14/17 at 21:33; Stop 02/14/17 at 22:05; Status DC Vancomycin HCl (Vanco Per Pharmacy) 1 each PRN DAILY PRN MC SEE COMMENTS Last administered on 02/14/17 23:45; Start 02/14/17 at 22:00 Levofloxacin/ Dextrose (Levaquin Per Pharmacy) 1 each PRN DAILY PRN MC SEE COMMENTS; Start 02/14/17 at 23:00; Stop 02/15/17 at 07:38; Status DC Vancomycin HCl 1.75 gm/Sodium Chloride 500 ml @ 250 mls/hr 1X ONCE IV Last administered on 02/14/17 22:21; Start 02/14/17 at 22:15; Stop 02/15/17 at 00:14 ; Status DC Sodium Chloride 1,000 ml @ 510 mls/hr Q1H58M IV ; Start 02/14/17 at 22:15; Stop 02/15/17 at 01:32; Status DC Levofloxacin/ Dextrose 100 ml @ 100 mls/hr Q48H IV Last administered on 22:58; Start 02/14/17 at 23:00; Stop 02/15/17 at 07:38; Status DC Dextrose (Dextrose 50%-Water Syringe) 25 gm 1X ONCE IV Last administered on 22:52; Start 02/14/17 at 23:00; Stop 02/14/17 at 23:01; Status DC Dextrose (Dextrose 50%-Water Syringe) 25 gm 1X ONCE IV ; Start 02/14/17 at 23: 00; Stop 02/14/17 at 23:01; Status DC Furosemide (Lasix) 40 mg 1X PRN PRN IV blood transfusion; Start 02/14/17 at 23: 00; Stop 02/15/17 at 22:59 Dopamine HCl/ Dextrose 250 ml @ 12.688 mls/ hr CONT PRN IV SEE I/O RECORD Last administered on 02/14/17 23:44; Start 02/14/17 at 23:15 Ondansetron HCl (Zofran) 4 mg PRN Q6HRS PRN IV NAUSEA/VOMITING Last administered on 02/15/17 05:47; Start 02/14/17 at 23:15 Famotidine (Pepcid) 10 mg BID IVP Last administered on 02/15/17 10:03; Start 02/15/17 at 09:00 Acetaminophen (Tylenol) 120 mg PRN Q6HRS PRN DC MILD PAIN / TEMP; Start at 23:15 Acetaminophen (Tylenol) 500 mg PRN Q6HRS PRN PO MILD PAIN / TEMP; Start at 23:15 Vancomycin HCl 1 each 1X ONCE MC ; Start 02/16/17 at 22:30; Stop 02/16/17 at 22 :31 Ondansetron HCl (Zofran) 4 mg PRN Q8HRS PRN IV NAUSEA/VOMITING; Start 02/14/17 at 23:45; Stop 02/15/17 at 23:44 Dextrose/Sodium Chloride 1,000 ml @ 125 mls/hr 1X ONCE IV ; Start 02/14/17 at 23:45; Stop 02/15/17 at 07:44; Status DC Piperacillin Sod/ Tazobactam Sod 2.25 gm/Sodium Chloride 50 ml @ 100 mls/hr Q6HRS IV Last administered on 02/15/17 08:43; Start 02/15/17 at 07:30 Micafungin Sodium 100 mg/Dextrose 100 ml @ 100 mls/hr Q24H IV Last administered on 02/15/17 10:03; Start 02/15/17 at 08:00 Fentanyl Citrate (Fentanyl 2ml Vial) 50 mcg PRN Q2HR PRN IV PAIN Last administered on 02/15/17 09:16; Start 02/15/17 at 09:15 Morphine Sulfate 4 mg PRN Q2HR PRN IV PAIN; Start 02/15/17 at 09:45 Sodium Chloride 1,000 ml @ 75 mls/hr [id number] IV Last administered on 10:03; Start 02/15/17 at 10:00 Phytonadione (Vitamin K Ampule) 10 mg 1X ONCE SQ ; Start 02/15/17 at 10:30; Stop 02/15/17 at 10:33; Status DC Desmopressin Acetate 20 mcg/ Sodium Chloride 55 ml @ 102 mls/hr 1X ONCE IV ; Start 02/15/17 at 11:00; Stop 02/15/17 at 11:32 Hydroxyurea (Hydrea) 500 mg QMWF PO ; Start 02/15/17 at 11:00 Active Scripts Active Reported Lantus Solostar (Insulin Glargine,Hum.rec.anlog) 100 Unit/1 Ml Insuln.pen 22 Unit SQ QHS Droxia (Hydroxyurea) 200 Mg Capsule 200 Mg PO DAILY Feosol (Ferrous Sulfate) 325 Mg Tablet 325 Mg PO DAILY Coreg (Carvedilol) 12.5 Mg Tablet 1 Tab PO BID Bumetanide 2 Mg Tablet 2 Tab PO BID Aspir 81 (Aspirin) 81 Mg Tablet.dr 1 Tab PO DAILY Allopurinol 300 Mg Tablet 1 Tab PO DAILY Advair 250-50 Diskus (Fluticasone/Salmeterol) 1 Each Disk.w.dev 1 Puff IH Q12HR Zetia (Ezetimibe) 10 Mg Tablet 0.5 Tab PO DAILY Zemplar (Paricalcitol) 1 Mcg Capsule 1 Cap PO DAILY Sodium Bicarbonate 650 Mg Tablet 850 Mg PO BID Sensipar (Cinacalcet Hcl) 30 Mg Tablet 30 Mg PO QODAY Renvela (Sevelamer Carbonate) 800 Mg Tablet 2 Tab PO TID Proair Hfa Inhaler (Albuterol Sulfate) 8.5 Gm Hfa.aer.ad 2 Puff INH PRN Q4HRS PRN Omeprazole 40 Mg Capsule.dr 1 Cap PO DAILY Percocet 5-325 Mg Tablet (Oxycodone/Acetaminophen) 1 Each Tablet 1-2 Tab PO PRN Q6HRS PRN Novolog Flexpen (Insulin Aspart) 100 Unit/1 Ml Insuln.pen 15 Unit SQ DAILY Novolog Flexpen (Insulin Aspart) 100 Unit/1 Ml Insuln.pen 12 Unit SQ BIDACBL Norvasc (Amlodipine Besylate) 10 Mg Tablet 10 Mg PO DAILY Miralax (Polyethylene Glycol 3350) 17 Gm Powd.pack 1 Packet PO DAILY Lipitor (Atorvastatin Calcium) 40 Mg Tablet 1 Tab PO DAILY Lidocaine 1 Each Adh..patch 1 Each TP DAILY Allergies Allergies: Coded Allergies: anagrelide (Verified Allergy, Unknown, 02/14/17) ibuprofen (Verified Allergy, Unknown, 02/14/17) lisinopril (Verified Allergy, Unknown, 02/14/17) pseudoephedrine (Verified Allergy, Unknown, 02/14/17) triprolidine (Verified Allergy, Unknown, 02/14/17) ROS General: YES: Fatigue, Malaise, Appetite PSYCHOLOGICAL ROS: YES: Anxiety Eyes: Yes Decreased vision HEENT: YES: Heacaches Respiratory: YES: Cough Gastrointestinal: Yes Nausea, Yes Abdominal Pain, Yes Constipation Genitourinary: YES Incontinence Musculoskeletal: Yes Muscular Weakness Neurological: Yes Weakness Skin: Yes Dry Skin Physical Exam General: Alert, Oriented X3, Cooperative, No acute distress HEENT: Atraumatic, PERRLA Lungs: Clear to auscultation Heart: Regular rate, Normal S1, No murmurs Abdomen: Normal bowel sounds, Other (DIFFUSELY TENDER TO PALPATION BUT NO REBOUND, PD SITE WITHOUT DRAINAGE) Extremities: No clubbing, No cyanosis Skin: No rashes, No significant lesion Neuro: Normal speech, Cranial nerves 3-12 NL Psych/Mental Status: Mental status NL, Mood NL MUSCULOSKELETAL: No joint tenderness, No deformity Vitals VITALS Vital Signs Date Time Temp Pulse Resp B/P (MAP) Pulse Ox O2 Delivery O2 Flow Rate FiO2 02/15/17 09:50 24 99 Room Air 02/15/17 06:00 98.1 93 147/89 (108) 98.1 Labs Labs Laboratory Tests Test 02/14/17 21:00 02/14/17 21:18 02/14/17 21:45 02/14/17 21:57 White Blood Count 67.7 x10^3/uL (4.0-11.0) Red Blood Count 1.56 x10^6/uL (3.50-5.40) Hemoglobin 4.2 g/dL (12.0-15.5) Hematocrit 14.7 % (36.0-47.0) Mean Corpuscular Volume 94 fL (79-100) Mean Corpuscular Hemoglobin 27 pg (25-35) Mean Corpuscular Hemoglobin Concent 29 g/dL (31-37) Red Cell Distribution Width 27.8 % (11.5-14.5) Platelet Count 864 x10^3/uL (140-400) Neutrophils (%) (Auto) 93 % (31-73) Lymphocytes (%) (Auto) 3 % (24-48) Monocytes (%) (Auto) 3 % (0-9) Eosinophils (%) (Auto) 1 % (0-3) Basophils (%) (Auto) 1 % (0-3) Neutrophils # (Auto) 62.7 x10^3uL (1.8-7.7) Lymphocytes # (Auto) 2.0 x10^3/uL (1.0-4.8) Monocytes # (Auto) 1.7 x10^3/uL (0.0-1.1) Eosinophils # (Auto) 0.5 x10^3/uL (0.0-0.7) Basophils # (Auto) 0.8 x10^3/uL (0.0-0.2) Segmented Neutrophils % 76 % (35-66) Band Neutrophils % 19 % (0-9) Lymphocytes % 2 % (24-48) Eosinophils % 1 % (0-5) Metamyelocytes % 1 % (0-0) Myelocytes % 1 % (0-0) Toxic Granulation Slight Platelet Estimate Increased (ADEQUATE) Giant Platelets Few Polychromasia Mod Hypochromasia Mod Poikilocytosis Mod Anisocytosis Marked Spherocytes Few Schistocytes Few Prothrombin Time 19.7 SEC (11.7-14.0) Prothromb Time International Ratio 1.8 (0.8-1.1) Activated Partial Thromboplast Time 45 SEC (24-38) Sodium Level 139 mmol/L (136-145) Potassium Level 4.2 mmol/L (3.5-5.1) Chloride Level 101 mmol/L (98-107) Carbon Dioxide Level 29 mmol/L (21-32) Anion Gap 9 (6-14) Blood Urea Nitrogen 69 mg/dL (7-20) Creatinine 7.2 mg/dL (0.6-1.0) Estimated GFR (Cockcroft-Gault) 5.6 BUN/Creatinine Ratio 10 (6-20) Glucose Level 79 mg/dL (70-99) Lactic Acid Level 2.7 mmol/L (0.4-2.0) Calcium Level 7.6 mg/dL (8.5-10.1) Magnesium Level 2.0 mg/dL (1.8-2.4) Total Bilirubin 0.3 mg/dL (0.2-1.0) Aspartate Amino Transf (AST/SGOT) 70 U/L (15-37) Alanine Aminotransferase (ALT/SGPT) 11 U/L (14-59) Alkaline Phosphatase 125 U/L (46-116) Total Protein 4.7 g/dL (6.4-8.2) Albumin 2.1 g/dL (3.4-5.0) Albumin/Globulin Ratio 0.8 (1.0-1.7) Glucose (Fingerstick) 67 mg/dL (70-99) 140 mg/dL (70-99) Stool Occult Blood Positive (NEG) Test 02/14/17 22:10 02/14/17 22:45 02/14/17 23:05 02/14/17 23:30 Glucose (Fingerstick) 108 mg/dL (70-99) 73 mg/dL (70-99) 151 mg/dL (70-99) Urine Collection Type U cath Urine Color Yellow Urine Clarity Cloudy Urine pH 5.0 Urine Specific [place] 1.020 Urine Protein >=300 mg/dL (NEG-TRACE) Urine Glucose (UA) Negative mg/dL (NEG) Urine Ketones (Stick) Negative mg/dL (NEG) Urine Blood Negative (NEG) Urine Nitrite Negative (NEG) Urine Bilirubin Negative (NEG) Urine Urobilinogen Dipstick 0.2 mg/dL (0.2 mg/dL) Urine Leukocyte Esterase Small (NEG) Urine RBC Occ /HPF (0-2) Urine WBC 1-4 /HPF (0-4) Urine Squamous Epithelial Cells Occ /LPF Urine Transitional Epithelial Cells Occ /LPF Urine Bacteria Few /HPF (0-FEW) Urine Hyaline Casts Few /HPF Urine Granular Casts Occasional /HPF Urine Waxy Casts Occasional /HPF Urine Mucus Slight /LPF Urine Opiates Screen Pos (NEG) Urine Methadone Screen Neg (NEG) Urine Barbiturates Neg (NEG) Urine Phencyclidine Screen Neg (NEG) Urine Amphetamine/Methamphetamine Neg (NEG) Urine Benzodiazepines Screen Neg (NEG) Urine Cocaine Screen Neg (NEG) Urine Cannabinoids Screen Neg (NEG) Urine Ethyl Alcohol Neg (NEG) Test 02/14/17 23:45 02/15/17 01:15 02/15/17 08:16 02/15/17 09:00 Lactic Acid Level 2.9 mmol/L (0.4-2.0) 2.9 mmol/L (0.4-2.0) Glucose (Fingerstick) 112 mg/dL (70-99) White Blood Count 67.0 x10^3/uL (4.0-11.0) Red Blood Count 3.17 x10^6/uL (3.50-5.40) Hemoglobin 8.7 g/dL (12.0-15.5) Hematocrit 26.9 % (36.0-47.0) Mean Corpuscular Volume 85 fL (79-100) Mean Corpuscular Hemoglobin 27 pg (25-35) Mean Corpuscular Hemoglobin Concent 32 g/dL (31-37) Red Cell Distribution Width 20.6 % (11.5-14.5) Platelet Count 841 x10^3/uL (140-400) Neutrophils (%) (Auto) 95 % (31-73) Lymphocytes (%) (Auto) 2 % (24-48) Monocytes (%) (Auto) 2 % (0-9) Eosinophils (%) (Auto) 1 % (0-3) Basophils (%) (Auto) 1 % (0-3) Neutrophils # (Auto) 63.8 x10^3uL (1.8-7.7) Lymphocytes # (Auto) 1.2 x10^3/uL (1.0-4.8) Monocytes # (Auto) 1.4 x10^3/uL (0.0-1.1) Eosinophils # (Auto) 0.3 x10^3/uL (0.0-0.7) Basophils # (Auto) 0.3 x10^3/uL (0.0-0.2) Sodium Level 139 mmol/L (136-145) Potassium Level 4.8 mmol/L (3.5-5.1) Chloride Level 101 mmol/L (98-107) Carbon Dioxide Level 25 mmol/L (21-32) Anion Gap 13 (6-14) Blood Urea Nitrogen 65 mg/dL (7-20) Creatinine 6.6 mg/dL (0.6-1.0) Estimated GFR (Cockcroft-Gault) 7.5 Glucose Level 114 mg/dL (70-99) Calcium Level 7.3 mg/dL (8.5-10.1) Phosphorus Level 4.7 mg/dL (2.6-4.7) Albumin 2.5 g/dL (3.4-5.0) Lipase 146 U/L (73-393) Procalcitonin 1.98 ng/mL (0.00-0.10) Thyroid Stimulating Hormone (TSH) 6.503 uIU/mL (0.358-3.74) Laboratory Tests Test 02/14/17 21:00 02/14/17 21:18 02/14/17 21:45 02/14/17 21:57 White Blood Count 67.7 x10^3/uL (4.0-11.0) Red Blood Count 1.56 x10^6/uL (3.50-5.40) Hemoglobin 4.2 g/dL (12.0-15.5) Hematocrit 14.7 % (36.0-47.0) Mean Corpuscular Volume 94 fL (79-100) Mean Corpuscular Hemoglobin 27 pg (25-35) Mean Corpuscular Hemoglobin Concent 29 g/dL (31-37) Red Cell Distribution Width 27.8 % (11.5-14.5) Platelet Count 864 x10^3/uL (140-400) Neutrophils (%) (Auto) 93 % (31-73) Lymphocytes (%) (Auto) 3 % (24-48) Monocytes (%) (Auto) 3 % (0-9) Eosinophils (%) (Auto) 1 % (0-3) Basophils (%) (Auto) 1 % (0-3) Neutrophils # (Auto) 62.7 x10^3uL (1.8-7.7) Lymphocytes # (Auto) 2.0 x10^3/uL (1.0-4.8) Monocytes # (Auto) 1.7 x10^3/uL (0.0-1.1) Eosinophils # (Auto) 0.5 x10^3/uL (0.0-0.7) Basophils # (Auto) 0.8 x10^3/uL (0.0-0.2) Segmented Neutrophils % 76 % (35-66) Band Neutrophils % 19 % (0-9) Lymphocytes % 2 % (24-48) Eosinophils % 1 % (0-5) Metamyelocytes % 1 % (0-0) Myelocytes % 1 % (0-0) Toxic Granulation Slight Platelet Estimate Increased (ADEQUATE) Giant Platelets Few Polychromasia Mod Hypochromasia Mod Poikilocytosis Mod Anisocytosis Marked Spherocytes Few Schistocytes Few Prothrombin Time 19.7 SEC (11.7-14.0) Prothromb Time International Ratio 1.8 (0.8-1.1) Activated Partial Thromboplast Time 45 SEC (24-38) Sodium Level 139 mmol/L (136-145) Potassium Level 4.2 mmol/L (3.5-5.1) Chloride Level 101 mmol/L (98-107) Carbon Dioxide Level 29 mmol/L (21-32) Anion Gap 9 (6-14) Blood Urea Nitrogen 69 mg/dL (7-20) Creatinine 7.2 mg/dL (0.6-1.0) Estimated GFR (Cockcroft-Gault) 5.6 BUN/Creatinine Ratio 10 (6-20) Glucose Level 79 mg/dL (70-99) Lactic Acid Level 2.7 mmol/L (0.4-2.0) Calcium Level 7.6 mg/dL (8.5-10.1) Magnesium Level 2.0 mg/dL (1.8-2.4) Total Bilirubin 0.3 mg/dL (0.2-1.0) Aspartate Amino Transf (AST/SGOT) 70 U/L (15-37) Alanine Aminotransferase (ALT/SGPT) 11 U/L (14-59) Alkaline Phosphatase 125 U/L (46-116) Total Protein 4.7 g/dL (6.4-8.2) Albumin 2.1 g/dL (3.4-5.0) Albumin/Globulin Ratio 0.8 (1.0-1.7) Glucose (Fingerstick) 67 mg/dL (70-99) 140 mg/dL (70-99) Stool Occult Blood Positive (NEG) Test 02/14/17 22:10 02/14/17 22:45 02/14/17 23:05 02/14/17 23:30 Glucose (Fingerstick) 108 mg/dL (70-99) 73 mg/dL (70-99) 151 mg/dL (70-99) Urine Collection Type U cath Urine Color Yellow Urine Clarity Cloudy Urine pH 5.0 Urine Specific [place] 1.020 Urine Protein >=300 mg/dL (NEG-TRACE) Urine Glucose (UA) Negative mg/dL (NEG) Urine Ketones (Stick) Negative mg/dL (NEG) Urine Blood Negative (NEG) Urine Nitrite Negative (NEG) Urine Bilirubin Negative (NEG) Urine Urobilinogen Dipstick 0.2 mg/dL (0.2 mg/dL) Urine Leukocyte Esterase Small (NEG) Urine RBC Occ /HPF (0-2) Urine WBC 1-4 /HPF (0-4) Urine Squamous Epithelial Cells Occ /LPF Urine Transitional Epithelial Cells Occ /LPF Urine Bacteria Few /HPF (0-FEW) Urine Hyaline Casts Few /HPF Urine Granular Casts Occasional /HPF Urine Waxy Casts Occasional /HPF Urine Mucus Slight /LPF Urine Opiates Screen Pos (NEG) Urine Methadone Screen Neg (NEG) Urine Barbiturates Neg (NEG) Urine Phencyclidine Screen Neg (NEG) Urine Amphetamine/Methamphetamine Neg (NEG) Urine Benzodiazepines Screen Neg (NEG) Urine Cocaine Screen Neg (NEG) Urine Cannabinoids Screen Neg (NEG) Urine Ethyl Alcohol Neg (NEG) Test 02/14/17 23:45 02/15/17 01:15 02/15/17 08:16 02/15/17 09:00 Lactic Acid Level 2.9 mmol/L (0.4-2.0) 2.9 mmol/L (0.4-2.0) Glucose (Fingerstick) 112 mg/dL (70-99) White Blood Count 67.0 x10^3/uL (4.0-11.0) Red Blood Count 3.17 x10^6/uL (3.50-5.40) Hemoglobin 8.7 g/dL (12.0-15.5) Hematocrit 26.9 % (36.0-47.0) Mean Corpuscular Volume 85 fL (79-100) Mean Corpuscular Hemoglobin 27 pg (25-35) Mean Corpuscular Hemoglobin Concent 32 g/dL (31-37) Red Cell Distribution Width 20.6 % (11.5-14.5) Platelet Count 841 x10^3/uL (140-400) Neutrophils (%) (Auto) 95 % (31-73) Lymphocytes (%) (Auto) 2 % (24-48) Monocytes (%) (Auto) 2 % (0-9) Eosinophils (%) (Auto) 1 % (0-3) Basophils (%) (Auto) 1 % (0-3) Neutrophils # (Auto) 63.8 x10^3uL (1.8-7.7) Lymphocytes # (Auto) 1.2 x10^3/uL (1.0-4.8) Monocytes # (Auto) 1.4 x10^3/uL (0.0-1.1) Eosinophils # (Auto) 0.3 x10^3/uL (0.0-0.7) Basophils # (Auto) 0.3 x10^3/uL (0.0-0.2) Sodium Level 139 mmol/L (136-145) Potassium Level 4.8 mmol/L (3.5-5.1) Chloride Level 101 mmol/L (98-107) Carbon Dioxide Level 25 mmol/L (21-32) Anion Gap 13 (6-14) Blood Urea Nitrogen 65 mg/dL (7-20) Creatinine 6.6 mg/dL (0.6-1.0) Estimated GFR (Cockcroft-Gault) 7.5 Glucose Level 114 mg/dL (70-99) Calcium Level 7.3 mg/dL (8.5-10.1) Phosphorus Level 4.7 mg/dL (2.6-4.7) Albumin 2.5 g/dL (3.4-5.0) Lipase 146 U/L (73-393) Procalcitonin 1.98 ng/mL (0.00-0.10) Thyroid Stimulating Hormone (TSH) 6.503 uIU/mL (0.358-3.74) Assessment/Plan Assessment/Plan IMP [facility] ESRD ANEMIA ABD SHEATH HEMATOMA/BLEED S/P PD CATHETER MDS LEUCOCYTOSIS ?SEPSIS HYPOTENSION COAGULOPATHY PLAN PRBC NEEDED VIT K AND DDAVP HEME/ONC EVAL AND TX SUPPORT BP NEEDED SURGERY TO SEE PT REG PD CATHETER AND ABD BLEED DUE TO [facility] WILL START HD WILL HAVE TEMP HD CATHETER PLACED HD TODAY NO ANTICOAGULATION UF MINIMAL CRYSTAL PER BRENDON PORTER MD Feb 15, 2017 11:26
[2017-02-15] MEDS ORDERED: HEPARIN for IV BOLUS 10,000 UNIT/10 ML VIAL. ONE (11:49)
[2017-02-15] MEDS: VANCOMYCIN PER PHARMACY MC PRN (12:29)
--- NOTE | 2017-02-15 12:30 | RAD ---
Portable chest, 02/15/2017: History: Dialysis catheter placement Comparison is made to a study from 02/14/2017. A left jugular dialysis type catheter has been inserted extending into the superior aspect of the right atrium. The heart size and pulmonary vascularity are normal. There is calcific plaquing of the aorta. No pulmonary infiltrates are seen. There is no evidence of pneumothorax or pleural fluid. IMPRESSION: 1. The left jugular dialysis type catheter is in satisfactory position. 2. No acute cardiopulmonary abnormality is detected.
--- NOTE | 2017-02-15 13:02 | CONS ---
DATE OF CONSULTATION: 02/15/2017 HEMATOLOGY ONCOLOGY CONSULTATION REPORT REQUESTING PHYSICIAN: Dr. Diana Guy. REASON FOR CONSULTATION: Abdominal hematoma after a peritoneal dialysis catheter placement and history of polycythemia vera/essential thrombocytosis. HISTORY OF PRESENT ILLNESS: 1. 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 She underwent a bone marrow biopsy in 2001 that revealed extensive megakaryocytosis in a hypercellular marrow. She received minimal phlebotomy due to multifactorial anemia. The thrombocytosis is being managed with hydroxyurea. In 2014, she had worsening anemia which prompted a repeat bone marrow biopsy that did not reveal any evidence of myelofibrosis. Anemia did not respond to iron deficiency correction. It was assumed that the etiology of anemia is due to chronic kidney disease and hydroxyurea. She was started on Aranesp for anemia of chronic kidney disease in August 2016. 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 Bone marrow consultation was obtained and a bone marrow transplant team felt that she is not a good candidate because of comorbid conditions. She was recently admitted to [facility] from 02/04/2017 until 02/13/2017 for hypertensive urgency. Her creatinine was progressively getting worse. Nephrology recommended placement of a peritoneal dialysis catheter, which was placed during this admission. Her creatinine at the time of discharge was 6.0. Her WBC count was 53.8 at the time of discharge with platelet count of 953. Hematology had recommended to restart hydroxyurea. She is now admitted with altered mental status. She was undergoing rehabilitation at [facility]. The staff noticed changes in her medical status, poor responsiveness, hypoglycemia, hypothermia, and she was sent to the emergency room. CBC on 02/14/2017 at [facility] revealed a WBC of 67.7, hemoglobin 4.2, MCV 94, platelet count 864. She received transfusion and hemoglobin improved to 8.7 on 02/15/2017. She underwent a CT scan of the abdomen and pelvis on 02/14/2017 that revealed large multiloculated heterogenous collection within the pelvis involving the extraperitoneal and retroperitoneal spaces thought to be due to a large pelvic hematoma from recent peritoneal dialysis catheter placement. Peritonitis and developing pelvic abscess is also possible. There is also an associated rectus sheath hematoma. There is evidence of splenomegaly. She received 3 units of packed red blood cells transfusion and 3 units of FFP. Her INR at the time of admission on 02/23/2017 was 1.8. I was asked to see the patient for further evaluation. PAST MEDICAL HISTORY: Congestive heart failure, systolic and diastolic, diabetes mellitus, anemia due to chronic kidney disease, polycythemia vera, essential thrombocytosis, myelofibrosis, hypertension, gastric ulcer, chronic kidney disease stage 5. FAMILY HISTORY: Sister has history of colorectal cancer. SOCIAL HISTORY: No smoking or alcohol abuse. REVIEW OF SYSTEMS: A 14-point review of system was performed. Pertinent positives are mentioned in the history of present illness. Rest of the system review is negative. PHYSICAL EXAMINATION: GENERAL APPEARANCE: The patient is a 71-year-old -[place]ian female who is in no acute cardiorespiratory distress. She complains of abdominal pain. VITAL SIGNS: Blood pressure 147/89, temperature 98.1. HEENT: Head is atraumatic, normocephalic. Eyes, no icterus. NECK: Supple. CHEST: Bilaterally symmetrical. No crepitations or rhonchi heard. HEART: S1, S2 normal. ABDOMEN: Soft, mildly distended with ecchymosis noted. Peritoneal dialysis catheter is also noted. CENTRAL NERVOUS SYSTEM: No focal deficits. LYMPHATICS: No lymphadenopathy. SKIN: No rashes. PSYCHOLOGIC: Mood and affect are appropriate. MUSCULOSKELETAL: No joint effusions. LABORATORY DATA: On 02/14/2017, WBC 67.7, hemoglobin 4.7, platelet count 864. Post-transfusion hemoglobin on 02/15/2017 is 8.7. Labs from 02/14/2007 also revealed INR of 1.8. PTT 45. IMPRESSION AND PLAN: 1. 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 She was off hydroxyurea for almost 2-3 weeks prior to this admission because of renal failure. Her blood counts are significantly worse with worsening WBC and worsening platelets. Hence, I will resume hydroxyurea. Elevated platelet counts in patients with essential thrombocythemia can also increase the risk of bleeding. Hence, it is essential to decrease the platelet counts with the help of hydroxyurea. I will continue to monitor WBC, hemoglobin, and platelet counts closely while she is on hydroxyurea. 2. Hematoma, intraabdominal, due to recent peritoneal dialysis catheter placement. Her INR is elevated at 1.8. She already received 3 units of FFP and I will also give her 1 dose of vitamin K. Her creatinine is 6.6 with BUN of 65. Patients with uncontrolled myeloproliferative disorder and the patients with uremia can have deficiency of von Willebrand factor. Hence, I will also give her 20 mcg of DDAVP for management of the underlying hematoma. 3. Sepsis. Appreciate ID consultation. 4. Leukocytosis due to myelofibrosis. 5. Thrombocytosis due to myelofibrosis. Plan hydroxyurea as described above. I discussed with Jeannette Woody, nurse practitioner at [facility]. She did advise to resume hydroxyurea. I also discussed with registered nurse in ICU. ALPESH BROWN MD DR: ARIANNA/thomas JOB#: [id number] / [id number]
[2017-02-15] MEDS ORDERED: IV NORMAL SALINE 1000ML BAG 1,000 ML IV PRN ×2 (13:56)
[2017-02-15] MEDS ORDERED: DIALYSIS PATIENT. MC PRN ×2 (14:00)
--- NOTE | 2017-02-15 14:10 | RAD ---
Procedure: Left internal jugular temporary hemodialysis catheter placement, ultrasound-guided. Today Clinical Indication: Renal failure sedation: None Sterility: All elements of maximal sterile barrier technique including the use of a cap, mask, sterile gown, sterile gloves, large sterile sheet, appropriate hand hygiene, and 2% chlorhexidine for cutaneous antisepsis (or acceptable alternative antiseptic per current guidelines) were followed for this procedure. Consent: The procedure was explained in its entirety to the patient or the patients designated pharmaceutical representative by a member of the treatment team, including a discussion of the risks, benefits and commonly accepted alternatives to the procedure, as well as the expected consequences of no therapy whatsoever. Discussion of the risks included, but was not limited to, those that are most frequent and those that are rare but possibly severe or life-threatening, as well as the possibility of unforeseen complications. Technique and Findings: Following informed consent, the patient was prepped and draped in the usual sterile fashion. Ultrasound interrogation of the right neck revealed patency and compressibility of the right internal jugular vein. Unfortunately a small amount subcutaneous air was administered during the administration of local anesthesia. Therefore Was placed on the left. Left IJV was found to be patent and compressible. A 21-gauge micropuncture needle was used to gain access to this vein after 1% Lidocaine was used to achieve local anesthesia. A hardcopy ultrasound image was recorded. The needle was exchanged over a wire for serial dilators followed by a 20 cm temporary dialysis hemodialysis catheter. The catheter flow rates were assessed manually and found to be excellent. The catheter was then flushed, packed with Heparin, capped, and sutured to the skin. Complications: No immediate Impression: Successful placement of a left internal jugular temporary dialysis catheter.
--- NOTE | 2017-02-15 15:26 | PDOC ---
PULMONARY PROGRESS NOTES Vitals Vital Signs Date Time Temp Pulse Resp B/P (MAP) Pulse Ox O2 Delivery O2 Flow Rate FiO2 02/15/17 14:52 19 98 Room Air 02/15/17 06:00 98.1 93 147/89 (108) 98.1 Cardiovascular: S1, S2 Labs Laboratory Tests Test 02/14/17 21:00 02/14/17 21:18 02/14/17 21:45 02/14/17 21:57 White Blood Count 67.7 x10^3/uL (4.0-11.0) Red Blood Count 1.56 x10^6/uL (3.50-5.40) Hemoglobin 4.2 g/dL (12.0-15.5) Hematocrit 14.7 % (36.0-47.0) Mean Corpuscular Volume 94 fL (79-100) Mean Corpuscular Hemoglobin 27 pg (25-35) Mean Corpuscular Hemoglobin Concent 29 g/dL (31-37) Red Cell Distribution Width 27.8 % (11.5-14.5) Platelet Count 864 x10^3/uL (140-400) Neutrophils (%) (Auto) 93 % (31-73) Lymphocytes (%) (Auto) 3 % (24-48) Monocytes (%) (Auto) 3 % (0-9) Eosinophils (%) (Auto) 1 % (0-3) Basophils (%) (Auto) 1 % (0-3) Neutrophils # (Auto) 62.7 x10^3uL (1.8-7.7) Lymphocytes # (Auto) 2.0 x10^3/uL (1.0-4.8) Monocytes # (Auto) 1.7 x10^3/uL (0.0-1.1) Eosinophils # (Auto) 0.5 x10^3/uL (0.0-0.7) Basophils # (Auto) 0.8 x10^3/uL (0.0-0.2) Segmented Neutrophils % 76 % (35-66) Band Neutrophils % 19 % (0-9) Lymphocytes % 2 % (24-48) Eosinophils % 1 % (0-5) Metamyelocytes % 1 % (0-0) Myelocytes % 1 % (0-0) Toxic Granulation Slight Platelet Estimate Increased (ADEQUATE) Giant Platelets Few Polychromasia Mod Hypochromasia Mod Poikilocytosis Mod Anisocytosis Marked Spherocytes Few Schistocytes Few Prothrombin Time 19.7 SEC (11.7-14.0) Prothromb Time International Ratio 1.8 (0.8-1.1) Activated Partial Thromboplast Time 45 SEC (24-38) Sodium Level 139 mmol/L (136-145) Potassium Level 4.2 mmol/L (3.5-5.1) Chloride Level 101 mmol/L (98-107) Carbon Dioxide Level 29 mmol/L (21-32) Anion Gap 9 (6-14) Blood Urea Nitrogen 69 mg/dL (7-20) Creatinine 7.2 mg/dL (0.6-1.0) Estimated GFR (Cockcroft-Gault) 5.6 BUN/Creatinine Ratio 10 (6-20) Glucose Level 79 mg/dL (70-99) Lactic Acid Level 2.7 mmol/L (0.4-2.0) Calcium Level 7.6 mg/dL (8.5-10.1) Magnesium Level 2.0 mg/dL (1.8-2.4) Total Bilirubin 0.3 mg/dL (0.2-1.0) Aspartate Amino Transf (AST/SGOT) 70 U/L (15-37) Alanine Aminotransferase (ALT/SGPT) 11 U/L (14-59) Alkaline Phosphatase 125 U/L (46-116) Total Protein 4.7 g/dL (6.4-8.2) Albumin 2.1 g/dL (3.4-5.0) Albumin/Globulin Ratio 0.8 (1.0-1.7) Glucose (Fingerstick) 67 mg/dL (70-99) 140 mg/dL (70-99) Stool Occult Blood Positive (NEG) Test 02/14/17 22:10 02/14/17 22:45 02/14/17 23:05 02/14/17 23:30 Glucose (Fingerstick) 108 mg/dL (70-99) 73 mg/dL (70-99) 151 mg/dL (70-99) Urine Collection Type U cath Urine Color Yellow Urine Clarity Cloudy Urine pH 5.0 Urine Specific [place] 1.020 Urine Protein >=300 mg/dL (NEG-TRACE) Urine Glucose (UA) Negative mg/dL (NEG) Urine Ketones (Stick) Negative mg/dL (NEG) Urine Blood Negative (NEG) Urine Nitrite Negative (NEG) Urine Bilirubin Negative (NEG) Urine Urobilinogen Dipstick 0.2 mg/dL (0.2 mg/dL) Urine Leukocyte Esterase Small (NEG) Urine RBC Occ /HPF (0-2) Urine WBC 1-4 /HPF (0-4) Urine Squamous Epithelial Cells Occ /LPF Urine Transitional Epithelial Cells Occ /LPF Urine Bacteria Few /HPF (0-FEW) Urine Hyaline Casts Few /HPF Urine Granular Casts Occasional /HPF Urine Waxy Casts Occasional /HPF Urine Mucus Slight /LPF Urine Opiates Screen Pos (NEG) Urine Methadone Screen Neg (NEG) Urine Barbiturates Neg (NEG) Urine Phencyclidine Screen Neg (NEG) Urine Amphetamine/Methamphetamine Neg (NEG) Urine Benzodiazepines Screen Neg (NEG) Urine Cocaine Screen Neg (NEG) Urine Cannabinoids Screen Neg (NEG) Urine Ethyl Alcohol Neg (NEG) Test 02/14/17 23:45 02/15/17 00:45 02/15/17 01:15 02/15/17 08:16 Lactic Acid Level 2.9 mmol/L (0.4-2.0) 2.9 mmol/L (0.4-2.0) Nasal Screen MRSA (PCR) Negative (Negative) Glucose (Fingerstick) 112 mg/dL (70-99) Test 02/15/17 09:00 02/15/17 13:01 White Blood Count 67.0 x10^3/uL (4.0-11.0) Red Blood Count 3.17 x10^6/uL (3.50-5.40) Hemoglobin 8.7 g/dL (12.0-15.5) Hematocrit 26.9 % (36.0-47.0) Mean Corpuscular Volume 85 fL (79-100) Mean Corpuscular Hemoglobin 27 pg (25-35) Mean Corpuscular Hemoglobin Concent 32 g/dL (31-37) Red Cell Distribution Width 20.6 % (11.5-14.5) Platelet Count 841 x10^3/uL (140-400) Neutrophils (%) (Auto) 95 % (31-73) Lymphocytes (%) (Auto) 2 % (24-48) Monocytes (%) (Auto) 2 % (0-9) Eosinophils (%) (Auto) 1 % (0-3) Basophils (%) (Auto) 1 % (0-3) Neutrophils # (Auto) 63.8 x10^3uL (1.8-7.7) Lymphocytes # (Auto) 1.2 x10^3/uL (1.0-4.8) Monocytes # (Auto) 1.4 x10^3/uL (0.0-1.1) Eosinophils # (Auto) 0.3 x10^3/uL (0.0-0.7) Basophils # (Auto) 0.3 x10^3/uL (0.0-0.2) Sodium Level 139 mmol/L (136-145) Potassium Level 4.8 mmol/L (3.5-5.1) Chloride Level 101 mmol/L (98-107) Carbon Dioxide Level 25 mmol/L (21-32) Anion Gap 13 (6-14) Blood Urea Nitrogen 65 mg/dL (7-20) Creatinine 6.6 mg/dL (0.6-1.0) Estimated GFR (Cockcroft-Gault) 7.5 Glucose Level 114 mg/dL (70-99) Calcium Level 7.3 mg/dL (8.5-10.1) Phosphorus Level 4.7 mg/dL (2.6-4.7) Albumin 2.5 g/dL (3.4-5.0) Lipase 146 U/L (73-393) Procalcitonin 1.98 ng/mL (0.00-0.10) Thyroid Stimulating Hormone (TSH) 6.503 uIU/mL (0.358-3.74) Glucose (Fingerstick) 114 mg/dL (70-99) Laboratory Tests Test 02/14/17 21:00 02/14/17 21:18 02/14/17 21:45 02/14/17 21:57 White Blood Count 67.7 x10^3/uL (4.0-11.0) Red Blood Count 1.56 x10^6/uL (3.50-5.40) Hemoglobin 4.2 g/dL (12.0-15.5) Hematocrit 14.7 % (36.0-47.0) Mean Corpuscular Volume 94 fL (79-100) Mean Corpuscular Hemoglobin 27 pg (25-35) Mean Corpuscular Hemoglobin Concent 29 g/dL (31-37) Red Cell Distribution Width 27.8 % (11.5-14.5) Platelet Count 864 x10^3/uL (140-400) Neutrophils (%) (Auto) 93 % (31-73) Lymphocytes (%) (Auto) 3 % (24-48) Monocytes (%) (Auto) 3 % (0-9) Eosinophils (%) (Auto) 1 % (0-3) Basophils (%) (Auto) 1 % (0-3) Neutrophils # (Auto) 62.7 x10^3uL (1.8-7.7) Lymphocytes # (Auto) 2.0 x10^3/uL (1.0-4.8) Monocytes # (Auto) 1.7 x10^3/uL (0.0-1.1) Eosinophils # (Auto) 0.5 x10^3/uL (0.0-0.7) Basophils # (Auto) 0.8 x10^3/uL (0.0-0.2) Segmented Neutrophils % 76 % (35-66) Band Neutrophils % 19 % (0-9) Lymphocytes % 2 % (24-48) Eosinophils % 1 % (0-5) Metamyelocytes % 1 % (0-0) Myelocytes % 1 % (0-0) Toxic Granulation Slight Platelet Estimate Increased (ADEQUATE) Giant Platelets Few Polychromasia Mod Hypochromasia Mod Poikilocytosis Mod Anisocytosis Marked Spherocytes Few Schistocytes Few Prothrombin Time 19.7 SEC (11.7-14.0) Prothromb Time International Ratio 1.8 (0.8-1.1) Activated Partial Thromboplast Time 45 SEC (24-38) Sodium Level 139 mmol/L (136-145) Potassium Level 4.2 mmol/L (3.5-5.1) Chloride Level 101 mmol/L (98-107) Carbon Dioxide Level 29 mmol/L (21-32) Anion Gap 9 (6-14) Blood Urea Nitrogen 69 mg/dL (7-20) Creatinine 7.2 mg/dL (0.6-1.0) Estimated GFR (Cockcroft-Gault) 5.6 BUN/Creatinine Ratio 10 (6-20) Glucose Level 79 mg/dL (70-99) Lactic Acid Level 2.7 mmol/L (0.4-2.0) Calcium Level 7.6 mg/dL (8.5-10.1) Magnesium Level 2.0 mg/dL (1.8-2.4) Total Bilirubin 0.3 mg/dL (0.2-1.0) Aspartate Amino Transf (AST/SGOT) 70 U/L (15-37) Alanine Aminotransferase (ALT/SGPT) 11 U/L (14-59) Alkaline Phosphatase 125 U/L (46-116) Total Protein 4.7 g/dL (6.4-8.2) Albumin 2.1 g/dL (3.4-5.0) Albumin/Globulin Ratio 0.8 (1.0-1.7) Glucose (Fingerstick) 67 mg/dL (70-99) 140 mg/dL (70-99) Stool Occult Blood Positive (NEG) Test 02/14/17 22:10 02/14/17 22:45 02/14/17 23:05 02/14/17 23:30 Glucose (Fingerstick) 108 mg/dL (70-99) 73 mg/dL (70-99) 151 mg/dL (70-99) Urine Collection Type U cath Urine Color Yellow Urine Clarity Cloudy Urine pH 5.0 Urine Specific [place] 1.020 Urine Protein >=300 mg/dL (NEG-TRACE) Urine Glucose (UA) Negative mg/dL (NEG) Urine Ketones (Stick) Negative mg/dL (NEG) Urine Blood Negative (NEG) Urine Nitrite Negative (NEG) Urine Bilirubin Negative (NEG) Urine Urobilinogen Dipstick 0.2 mg/dL (0.2 mg/dL) Urine Leukocyte Esterase Small (NEG) Urine RBC Occ /HPF (0-2) Urine WBC 1-4 /HPF (0-4) Urine Squamous Epithelial Cells Occ /LPF Urine Transitional Epithelial Cells Occ /LPF Urine Bacteria Few /HPF (0-FEW) Urine Hyaline Casts Few /HPF Urine Granular Casts Occasional /HPF Urine Waxy Casts Occasional /HPF Urine Mucus Slight /LPF Urine Opiates Screen Pos (NEG) Urine Methadone Screen Neg (NEG) Urine Barbiturates Neg (NEG) Urine Phencyclidine Screen Neg (NEG) Urine Amphetamine/Methamphetamine Neg (NEG) Urine Benzodiazepines Screen Neg (NEG) Urine Cocaine Screen Neg (NEG) Urine Cannabinoids Screen Neg (NEG) Urine Ethyl Alcohol Neg (NEG) Test 02/14/17 23:45 02/15/17 00:45 02/15/17 01:15 02/15/17 08:16 Lactic Acid Level 2.9 mmol/L (0.4-2.0) 2.9 mmol/L (0.4-2.0) Nasal Screen MRSA (PCR) Negative (Negative) Glucose (Fingerstick) 112 mg/dL (70-99) Test 02/15/17 09:00 02/15/17 13:01 White Blood Count 67.0 x10^3/uL (4.0-11.0) Red Blood Count 3.17 x10^6/uL (3.50-5.40) Hemoglobin 8.7 g/dL (12.0-15.5) Hematocrit 26.9 % (36.0-47.0) Mean Corpuscular Volume 85 fL (79-100) Mean Corpuscular Hemoglobin 27 pg (25-35) Mean Corpuscular Hemoglobin Concent 32 g/dL (31-37) Red Cell Distribution Width 20.6 % (11.5-14.5) Platelet Count 841 x10^3/uL (140-400) Neutrophils (%) (Auto) 95 % (31-73) Lymphocytes (%) (Auto) 2 % (24-48) Monocytes (%) (Auto) 2 % (0-9) Eosinophils (%) (Auto) 1 % (0-3) Basophils (%) (Auto) 1 % (0-3) Neutrophils # (Auto) 63.8 x10^3uL (1.8-7.7) Lymphocytes # (Auto) 1.2 x10^3/uL (1.0-4.8) Monocytes # (Auto) 1.4 x10^3/uL (0.0-1.1) Eosinophils # (Auto) 0.3 x10^3/uL (0.0-0.7) Basophils # (Auto) 0.3 x10^3/uL (0.0-0.2) Sodium Level 139 mmol/L (136-145) Potassium Level 4.8 mmol/L (3.5-5.1) Chloride Level 101 mmol/L (98-107) Carbon Dioxide Level 25 mmol/L (21-32) Anion Gap 13 (6-14) Blood Urea Nitrogen 65 mg/dL (7-20) Creatinine 6.6 mg/dL (0.6-1.0) Estimated GFR (Cockcroft-Gault) 7.5 Glucose Level 114 mg/dL (70-99) Calcium Level 7.3 mg/dL (8.5-10.1) Phosphorus Level 4.7 mg/dL (2.6-4.7) Albumin 2.5 g/dL (3.4-5.0) Lipase 146 U/L (73-393) Procalcitonin 1.98 ng/mL (0.00-0.10) Thyroid Stimulating Hormone (TSH) 6.503 uIU/mL (0.358-3.74) Glucose (Fingerstick) 114 mg/dL (70-99) Medications Active Scripts Medications Dose Route/Sig Max Daily Dose Days Date Category Lantus Solostar (Insulin Glargine,Hum.rec.anlog) 100 Unit/1 Ml Insuln.pen 22 Unit SQ QHS 02/15/17 Reported Droxia (Hydroxyurea) 200 Mg Capsule 200 Mg PO DAILY 02/15/17 Reported Feosol (Ferrous Sulfate) 325 Mg Tablet 325 Mg PO DAILY 02/15/17 Reported Coreg (Carvedilol) 12.5 Mg Tablet 1 Tab PO BID 02/15/17 Reported Bumetanide 2 Mg Tablet 2 Tab PO BID 02/15/17 Reported Aspir 81 (Aspirin) 81 Mg Tablet.dr 1 Tab PO DAILY 02/15/17 Reported Allopurinol 300 Mg Tablet 1 Tab PO DAILY 02/15/17 Reported Advair 250-50 Diskus (Fluticasone/Salmeterol) 1 Each Disk.w.dev 1 Puff IH Q12HR 02/15/17 Reported Zetia (Ezetimibe) 10 Mg Tablet 0.5 Tab PO DAILY 02/15/17 Reported Zemplar (Paricalcitol) 1 Mcg Capsule 1 Cap PO DAILY 02/15/17 Reported Sodium Bicarbonate 650 Mg Tablet 850 Mg PO BID 02/15/17 Reported Sensipar (Cinacalcet Hcl) 30 Mg Tablet 30 Mg PO QODAY 02/15/17 Reported Renvela (Sevelamer Carbonate) 800 Mg Tablet 2 Tab PO TID 02/15/17 Reported Proair Hfa Inhaler (Albuterol Sulfate) 8.5 Gm Hfa.aer.ad 2 Puff INH PRN Q4HRS PRN 02/15/17 Reported Omeprazole 40 Mg Capsule.dr 1 Cap PO DAILY 02/15/17 Reported Percocet 5-325 Mg Tablet (Oxycodone/Acetaminophen) 1 Each Tablet 1-2 Tab PO PRN Q6HRS PRN 02/15/17 Reported Novolog Flexpen (Insulin Aspart) 100 Unit/1 Ml Insuln.pen 15 Unit SQ DAILY 02/15/17 Reported Novolog Flexpen (Insulin Aspart) 100 Unit/1 Ml Insuln.pen 12 Unit SQ BIDACBL 02/15/17 Reported Norvasc (Amlodipine Besylate) 10 Mg Tablet 10 Mg PO DAILY 02/15/17 Reported Miralax (Polyethylene Glycol 3350) 17 Gm Powd.pack 1 Packet PO DAILY 02/15/17 Reported Lipitor (Atorvastatin Calcium) 40 Mg Tablet 1 Tab PO DAILY 02/15/17 Reported Lidocaine 1 Each Adh..patch 1 Each TP DAILY 02/15/17 Reported Impression . CONSULT DICTATED AGREE WITH CURRENT RX ASTHMA APPEARS COMPENSATED JAVY AIRSPACE DIZ SEC TO ATELECTASIS DENISE MCKINNON MD Feb 15, 2017 15:26
[2017-02-15] MEDS ORDERED: ALBUTEROL SULFATE 2.5 MG/3 ML NEBU. NEB PRN (15:30)
[2017-02-15] MEDS: HYDROXYUREA 500 MG CAPSULE PO SCH ×2 (16:00→23:48)
--- NOTE | 2017-02-15 20:49 | CONS ---
DATE OF CONSULTATION: 02/15/2017 ATTENDING PHYSICIAN: Dr. Guy. REASON FOR CONSULTATION: The patient is seen in pulmonary consultation at the request of Dr. Guy for abnormal CT of the chest revealing some basilar atelectasis, possible infiltrates along with history of asthma. HISTORY OF PRESENT ILLNESS: The patient is a 71-year-old female that was recently admitted and discharged from [facility], treated for pneumonia, congestive heart failure, renal insufficiency, and had a peritoneal catheter placement. The patient presented to the Emergency Room with altered mental status, unresponsiveness. She was evaluated and found to have low blood sugar. She was given some dextrose. She continued to be lethargic. Eventually, she was admitted to the intensive care unit. She was evaluated by Infectious Disease Service, treated for sepsis with hypothermia, leukocytosis and lactic acidosis. She was started on vancomycin and Zosyn. The patient has a history of asthma, which is currently being treated with p.r.n. albuterol and Advair. She is currently awake, alert, following command. She is not having any increasing shortness of breath. She had a CT abdomen and pelvis, which revealed some basilar infiltrates and effusion. I was asked to see her in consultation. She currently does not have a productive cough, no hemoptysis. PAST MEDICAL HISTORY: Otherwise remarkable for myelofibrosis, type 2 diabetes, hyperlipidemia, hypertension, coronary artery disease, asthma, gastric ulcer, chronic kidney disease, breast cancer, previous myocardial infarction, previous heart failure. PAST SURGICAL HISTORY: She had bilateral mastectomy, she denies having any chemoradiation; has had cataract surgery, hysterectomy. REVIEW OF SYSTEMS: As indicated above, otherwise, a 10-point system was reviewed and negative. ALLERGIES: LISTED TO IBUPROFEN, LISINOPRIL, PSEUDOEPHEDRINE AND TRIPROLIDINE ALONG WITH ANAGRELIDE. SOCIAL HISTORY: She resides at a [facility]. No current use of tobacco or alcohol. FAMILY HISTORY: Unknown. PHYSICAL EXAMINATION: GENERAL: The patient was in the Intensive Care Unit in no respiratory distress. She is currently on no oxygen supplementation. VITAL SIGNS: Have been stable. HEENT: Eyes, the sclerae were nonicteric. NECK: Jugular venous distention was not elevated. No lymphadenopathy. CHEST: Full expansion. LUNGS: Adequate airway flow with no wheezes. CARDIOVASCULAR: Regular rate and rhythm with S1, S2, no S3. ABDOMEN: Soft, nontender, nondistended. EXTREMITIES: No clubbing, cyanosis or pitting edema. NEUROLOGIC: The patient was awake, alert, following commands. A detailed neuro exam was not performed. LABORATORY DATA: Reviewed. White count was noted. Hemoglobin and hematocrit were noted. INR was 1.8. BUN and creatinine were elevated. Toxicology screen was positive for opiates. UA was noted. CT as indicated above. IMPRESSION: 1. Abnormal CT of the abdomen revealing some basilar opacities, suspect mostly atelectasis. 2. Asthma. 3. Sepsis present upon admission. 4. Hypothermia. 5. Leukocytosis. 6. Lactic acidosis. 7. Chronic kidney disease, status post recent catheter for dialysis. 8. Acute toxic metabolic encephalopathy. 9. Diabetes. 10. Polycythemia. 11. Intraabdominal hematoma. PLAN: 1. Pulmonary status appears to be compensated. Continue p.r.n. albuterol. 2. Antibiotics for sepsis per ID. 3. Follow Nephrology input. 4. The patient is seen in consultation for secondary myelofibrosis due to vera and essential thrombocytosis, per film projector operator. 5. Intraabdominal hematoma. 6. Continue current support, we will follow along and make any further recommendations depending on the patient's clinical response. I do appreciate the privilege in sharing in the patient's care. DENISE MCKINNON MD DR: MARLIN/thomas JOB#: [id number] / [id number]
[2017-02-16] VITALS (24 sets, daily range): BP systolic 91–161; BP diastolic 45–78
[2017-02-16] MEDS: MORPHINE SULFATE 4 MG/ML DISP.SYRIN. IV PRN ×2 (00:50→12:35)
[2017-02-16] MEDS ORDERED: VANCOMYCIN RANDOM LEVEL. MC ONE ×2 (05:00→22:30)
[2017-02-16] MEDS: PIPERACILLIN/TAZOBACTAM 2.25 GM in IV NORMAL SALINE 50ML 50 ML IV SCH ×3 (05:06→17:41)
[2017-02-16 05:54] LABS: BASO # 0.7 x10^3/uL (0.0-0.2); BASO % 1 % (0-3); EOS % 0 % (0-3); LYMPH # 1.7 x10^3/uL (1.0-4.8); LYMPH % 2 % (24-48); MEAN CORPUSCULAR HEMOGLOBIN 28 pg (25-35); MEAN CORPUSCULAR HGB CONC 32 g/dL (31-37); MEAN CORPUSCULAR VOLUME 86 fL (79-100); MONO % 1 % (0-9); NEUT % 96 % (31-73); PLATELET COUNT 704 x10^3/uL (140-400); RED BLOOD COUNT 1.93 x10^6/uL (3.50-5.40); RED CELL DISTRIBUTION WIDTH 21.6 % (11.5-14.5)
[2017-02-16 05:57] LABS: INR 1.6 (0.8-1.1); PROTHROMBIN TIME PATIENT 18.3 SEC (11.7-14.0)
[2017-02-16 06:07] LABS: ALBUMIN 2.4 g/dL (3.4-5.0); ALBUMIN/GLOBULIN RATIO 0.9 (1.0-1.7); CALCIUM 7.5 mg/dL (8.5-10.1); CREATININE 4.5 mg/dL (0.6-1.0); GFR 11.7; POTASSIUM 4.5 mmol/L (3.5-5.1); TOTAL BILIRUBIN 0.7 mg/dL (0.2-1.0); TOTAL PROTEIN 5.1 g/dL (6.4-8.2)
[2017-02-16 06:08] LABS: WHITE BLOOD COUNT 80.2 x10^3/uL (4.0-11.0)
[2017-02-16 06:09] LABS: HEMATOCRIT 16.7 % (36.0-47.0); HEMOGLOBIN 5.4 g/dL (12.0-15.5)
--- NOTE | 2017-02-16 08:06 | PDOC ---
Infectious Disease Note Subjective Subjective Still some abd pain and occ nausea ROS ROS GEN: Denies fevers, chills, sweats HEENT: Denies blurred vision, sore throat CV: Denies chest pain RESP: Denies shortness of air, cough NEURO: Denies confusion, dizziness MSK: Denies joint pain/swelling Vital Sign Vital Signs Vital Signs Date Time Temp Pulse Resp B/P (MAP) Pulse Ox O2 Delivery O2 Flow Rate FiO2 02/16/17 06:00 103 15 99/48 (65) 100 Room Air 02/16/17 04:00 97.3 97.3 Physical Exam PHYSICAL EXAM GENERAL: NAD, Alert but slow to respond. Appears comfortable HEENT: PERRL, OC/OP - dry NECK: Supple, no JVD, no LN LUNGS: Clear HEART: S1S2, no gallop, no murmur ABD: Distended, tender. 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 Peripherals - clean Labs Lab Laboratory Tests Test 02/15/17 08:16 02/15/17 09:00 02/15/17 13:01 02/15/17 16:58 Glucose (Fingerstick) 112 mg/dL (70-99) 114 mg/dL (70-99) 141 mg/dL (70-99) White Blood Count 67.0 x10^3/uL (4.0-11.0) Red Blood Count 3.17 x10^6/uL (3.50-5.40) Hemoglobin 8.7 g/dL (12.0-15.5) Hematocrit 26.9 % (36.0-47.0) Mean Corpuscular Volume 85 fL (79-100) Mean Corpuscular Hemoglobin 27 pg (25-35) Mean Corpuscular Hemoglobin Concent 32 g/dL (31-37) Red Cell Distribution Width 20.6 % (11.5-14.5) Platelet Count 841 x10^3/uL (140-400) Neutrophils (%) (Auto) 95 % (31-73) Lymphocytes (%) (Auto) 2 % (24-48) Monocytes (%) (Auto) 2 % (0-9) Eosinophils (%) (Auto) 1 % (0-3) Basophils (%) (Auto) 1 % (0-3) Neutrophils # (Auto) 63.8 x10^3uL (1.8-7.7) Lymphocytes # (Auto) 1.2 x10^3/uL (1.0-4.8) Monocytes # (Auto) 1.4 x10^3/uL (0.0-1.1) Eosinophils # (Auto) 0.3 x10^3/uL (0.0-0.7) Basophils # (Auto) 0.3 x10^3/uL (0.0-0.2) Sodium Level 139 mmol/L (136-145) Potassium Level 4.8 mmol/L (3.5-5.1) Chloride Level 101 mmol/L (98-107) Carbon Dioxide Level 25 mmol/L (21-32) Anion Gap 13 (6-14) Blood Urea Nitrogen 65 mg/dL (7-20) Creatinine 6.6 mg/dL (0.6-1.0) Estimated GFR (Cockcroft-Gault) 7.5 Glucose Level 114 mg/dL (70-99) Calcium Level 7.3 mg/dL (8.5-10.1) Phosphorus Level 4.7 mg/dL (2.6-4.7) Albumin 2.5 g/dL (3.4-5.0) Lipase 146 U/L (73-393) Procalcitonin 1.98 ng/mL (0.00-0.10) Thyroid Stimulating Hormone (TSH) 6.503 uIU/mL (0.358-3.74) Test 02/16/17 05:10 02/16/17 05:18 Lactic Acid Level 2.7 mmol/L (0.4-2.0) White Blood Count 80.2 x10^3/uL (4.0-11.0) Red Blood Count 1.93 x10^6/uL (3.50-5.40) Hemoglobin 5.4 g/dL (12.0-15.5) Hematocrit 16.7 % (36.0-47.0) Mean Corpuscular Volume 86 fL (79-100) Mean Corpuscular Hemoglobin 28 pg (25-35) Mean Corpuscular Hemoglobin Concent 32 g/dL (31-37) Red Cell Distribution Width 21.6 % (11.5-14.5) Platelet Count 704 x10^3/uL (140-400) Neutrophils (%) (Auto) 96 % (31-73) Lymphocytes (%) (Auto) 2 % (24-48) Monocytes (%) (Auto) 1 % (0-9) Eosinophils (%) (Auto) 0 % (0-3) Basophils (%) (Auto) 1 % (0-3) Neutrophils # (Auto) 76.7 x10^3uL (1.8-7.7) Lymphocytes # (Auto) 1.7 x10^3/uL (1.0-4.8) Monocytes # (Auto) 0.9 x10^3/uL (0.0-1.1) Eosinophils # (Auto) 0.2 x10^3/uL (0.0-0.7) Basophils # (Auto) 0.7 x10^3/uL (0.0-0.2) Prothrombin Time 18.3 SEC (11.7-14.0) Prothromb Time International Ratio 1.6 (0.8-1.1) Sodium Level 138 mmol/L (136-145) Potassium Level 4.5 mmol/L (3.5-5.1) Chloride Level 101 mmol/L (98-107) Carbon Dioxide Level 26 mmol/L (21-32) Anion Gap 11 (6-14) Blood Urea Nitrogen 40 mg/dL (7-20) Creatinine 4.5 mg/dL (0.6-1.0) Estimated GFR (Cockcroft-Gault) 11.7 BUN/Creatinine Ratio 9 (6-20) Glucose Level 135 mg/dL (70-99) Calcium Level 7.5 mg/dL (8.5-10.1) Total Bilirubin 0.7 mg/dL (0.2-1.0) Aspartate Amino Transf (AST/SGOT) 63 U/L (15-37) Alanine Aminotransferase (ALT/SGPT) 18 U/L (14-59) Alkaline Phosphatase 124 U/L (46-116) Total Protein 5.1 g/dL (6.4-8.2) Albumin 2.4 g/dL (3.4-5.0) Albumin/Globulin Ratio 0.9 (1.0-1.7) Random Vancomycin Level 14.4 mcg/mL Objective Assessment Sepsis - POA (hypothermia/leukocytosis/lactic acidosis). Procalcitonin mild elevation 1.98 02/15 Leukocytosis - in part reactive to bleed and transfusions. Cults pending Elevated TSH - ? euthyroid Abd hematoma - Possibly infected - cult pending. Hgb down again this am CKD - needing PD but not yet started (states PD cath placed 02/09). S/p HD cath and HD 02/15 Acute Encephalopathy -better but still slow to respond DM Bilat airspace disease Polycythemia Vera - now myelofibrosis -Hydroxyurea restarted Plan Plan of Care Cont Zosyn/Micafungin/Vanc Check T4/T3 F/u labs in am and cults Await surgical f/u FRANNY WOODRUFF MD Feb 16, 2017 08:06
[2017-02-16 08:53] LABS: FREE T4 1.37 ng/dL (0.76-1.46)
--- NOTE | 2017-02-16 09:06 | PDOC ---
PULMONARY PROGRESS NOTES Vitals Vital Signs Date Time Temp Pulse Resp B/P (MAP) Pulse Ox O2 Delivery O2 Flow Rate FiO2 02/16/17 06:00 103 15 99/48 (65) 100 Room Air 02/16/17 04:00 97.3 97.3 Cardiovascular: S1, S2 Labs Laboratory Tests Test 02/14/17 21:00 02/14/17 21:04 02/14/17 21:18 02/14/17 21:45 White Blood Count 67.7 x10^3/uL (4.0-11.0) Red Blood Count 1.56 x10^6/uL (3.50-5.40) Hemoglobin 4.2 g/dL (12.0-15.5) Hematocrit 14.7 % (36.0-47.0) Mean Corpuscular Volume 94 fL (79-100) Mean Corpuscular Hemoglobin 27 pg (25-35) Mean Corpuscular Hemoglobin Concent 29 g/dL (31-37) Red Cell Distribution Width 27.8 % (11.5-14.5) Platelet Count 864 x10^3/uL (140-400) Neutrophils (%) (Auto) 93 % (31-73) Lymphocytes (%) (Auto) 3 % (24-48) Monocytes (%) (Auto) 3 % (0-9) Eosinophils (%) (Auto) 1 % (0-3) Basophils (%) (Auto) 1 % (0-3) Neutrophils # (Auto) 62.7 x10^3uL (1.8-7.7) Lymphocytes # (Auto) 2.0 x10^3/uL (1.0-4.8) Monocytes # (Auto) 1.7 x10^3/uL (0.0-1.1) Eosinophils # (Auto) 0.5 x10^3/uL (0.0-0.7) Basophils # (Auto) 0.8 x10^3/uL (0.0-0.2) Segmented Neutrophils % 76 % (35-66) Band Neutrophils % 19 % (0-9) Lymphocytes % 2 % (24-48) Eosinophils % 1 % (0-5) Metamyelocytes % 1 % (0-0) Myelocytes % 1 % (0-0) Toxic Granulation Slight Platelet Estimate Increased (ADEQUATE) Giant Platelets Few Polychromasia Mod Hypochromasia Mod Poikilocytosis Mod Anisocytosis Marked Spherocytes Few Schistocytes Few Prothrombin Time 19.7 SEC (11.7-14.0) Prothromb Time International Ratio 1.8 (0.8-1.1) Activated Partial Thromboplast Time 45 SEC (24-38) Sodium Level 139 mmol/L (136-145) Potassium Level 4.2 mmol/L (3.5-5.1) Chloride Level 101 mmol/L (98-107) Carbon Dioxide Level 29 mmol/L (21-32) Anion Gap 9 (6-14) Blood Urea Nitrogen 69 mg/dL (7-20) Creatinine 7.2 mg/dL (0.6-1.0) Estimated GFR (Cockcroft-Gault) 5.6 BUN/Creatinine Ratio 10 (6-20) Glucose Level 79 mg/dL (70-99) Lactic Acid Level 2.7 mmol/L (0.4-2.0) Calcium Level 7.6 mg/dL (8.5-10.1) Magnesium Level 2.0 mg/dL (1.8-2.4) Total Bilirubin 0.3 mg/dL (0.2-1.0) Aspartate Amino Transf (AST/SGOT) 70 U/L (15-37) Alanine Aminotransferase (ALT/SGPT) 11 U/L (14-59) Alkaline Phosphatase 125 U/L (46-116) Total Protein 4.7 g/dL (6.4-8.2) Albumin 2.1 g/dL (3.4-5.0) Albumin/Globulin Ratio 0.8 (1.0-1.7) Glucose (Fingerstick) 95 mg/dL (70-99) 67 mg/dL (70-99) 140 mg/dL (70-99) Test 02/14/17 21:57 02/14/17 22:10 02/14/17 22:45 02/14/17 23:05 Stool Occult Blood Positive (NEG) Glucose (Fingerstick) 108 mg/dL (70-99) 73 mg/dL (70-99) Urine Collection Type U cath Urine Color Yellow Urine Clarity Cloudy Urine pH 5.0 Urine Specific [place] 1.020 Urine Protein >=300 mg/dL (NEG-TRACE) Urine Glucose (UA) Negative mg/dL (NEG) Urine Ketones (Stick) Negative mg/dL (NEG) Urine Blood Negative (NEG) Urine Nitrite Negative (NEG) Urine Bilirubin Negative (NEG) Urine Urobilinogen Dipstick 0.2 mg/dL (0.2 mg/dL) Urine Leukocyte Esterase Small (NEG) Urine RBC Occ /HPF (0-2) Urine WBC 1-4 /HPF (0-4) Urine Squamous Epithelial Cells Occ /LPF Urine Transitional Epithelial Cells Occ /LPF Urine Bacteria Few /HPF (0-FEW) Urine Hyaline Casts Few /HPF Urine Granular Casts Occasional /HPF Urine Waxy Casts Occasional /HPF Urine Mucus Slight /LPF Urine Opiates Screen Pos (NEG) Urine Methadone Screen Neg (NEG) Urine Barbiturates Neg (NEG) Urine Phencyclidine Screen Neg (NEG) Urine Amphetamine/Methamphetamine Neg (NEG) Urine Benzodiazepines Screen Neg (NEG) Urine Cocaine Screen Neg (NEG) Urine Cannabinoids Screen Neg (NEG) Urine Ethyl Alcohol Neg (NEG) Test 02/14/17 23:30 02/14/17 23:45 02/15/17 00:45 02/15/17 01:15 Glucose (Fingerstick) 151 mg/dL (70-99) Lactic Acid Level 2.9 mmol/L (0.4-2.0) 2.9 mmol/L (0.4-2.0) Nasal Screen MRSA (PCR) Negative (Negative) Test 02/15/17 08:16 02/15/17 09:00 02/15/17 13:01 02/15/17 16:58 Glucose (Fingerstick) 112 mg/dL (70-99) 114 mg/dL (70-99) 141 mg/dL (70-99) White Blood Count 67.0 x10^3/uL (4.0-11.0) Red Blood Count 3.17 x10^6/uL (3.50-5.40) Hemoglobin 8.7 g/dL (12.0-15.5) Hematocrit 26.9 % (36.0-47.0) Mean Corpuscular Volume 85 fL (79-100) Mean Corpuscular Hemoglobin 27 pg (25-35) Mean Corpuscular Hemoglobin Concent 32 g/dL (31-37) Red Cell Distribution Width 20.6 % (11.5-14.5) Platelet Count 841 x10^3/uL (140-400) Neutrophils (%) (Auto) 95 % (31-73) Lymphocytes (%) (Auto) 2 % (24-48) Monocytes (%) (Auto) 2 % (0-9) Eosinophils (%) (Auto) 1 % (0-3) Basophils (%) (Auto) 1 % (0-3) Neutrophils # (Auto) 63.8 x10^3uL (1.8-7.7) Lymphocytes # (Auto) 1.2 x10^3/uL (1.0-4.8) Monocytes # (Auto) 1.4 x10^3/uL (0.0-1.1) Eosinophils # (Auto) 0.3 x10^3/uL (0.0-0.7) Basophils # (Auto) 0.3 x10^3/uL (0.0-0.2) Sodium Level 139 mmol/L (136-145) Potassium Level 4.8 mmol/L (3.5-5.1) Chloride Level 101 mmol/L (98-107) Carbon Dioxide Level 25 mmol/L (21-32) Anion Gap 13 (6-14) Blood Urea Nitrogen 65 mg/dL (7-20) Creatinine 6.6 mg/dL (0.6-1.0) Estimated GFR (Cockcroft-Gault) 7.5 Glucose Level 114 mg/dL (70-99) Calcium Level 7.3 mg/dL (8.5-10.1) Phosphorus Level 4.7 mg/dL (2.6-4.7) Albumin 2.5 g/dL (3.4-5.0) Lipase 146 U/L (73-393) Procalcitonin 1.98 ng/mL (0.00-0.10) Thyroid Stimulating Hormone (TSH) 6.503 uIU/mL (0.358-3.74) Test 02/16/17 05:10 02/16/17 05:18 Lactic Acid Level 2.7 mmol/L (0.4-2.0) White Blood Count 80.2 x10^3/uL (4.0-11.0) Red Blood Count 1.93 x10^6/uL (3.50-5.40) Hemoglobin 5.4 g/dL (12.0-15.5) Hematocrit 16.7 % (36.0-47.0) Mean Corpuscular Volume 86 fL (79-100) Mean Corpuscular Hemoglobin 28 pg (25-35) Mean Corpuscular Hemoglobin Concent 32 g/dL (31-37) Red Cell Distribution Width 21.6 % (11.5-14.5) Platelet Count 704 x10^3/uL (140-400) Neutrophils (%) (Auto) 96 % (31-73) Lymphocytes (%) (Auto) 2 % (24-48) Monocytes (%) (Auto) 1 % (0-9) Eosinophils (%) (Auto) 0 % (0-3) Basophils (%) (Auto) 1 % (0-3) Neutrophils # (Auto) 76.7 x10^3uL (1.8-7.7) Lymphocytes # (Auto) 1.7 x10^3/uL (1.0-4.8) Monocytes # (Auto) 0.9 x10^3/uL (0.0-1.1) Eosinophils # (Auto) 0.2 x10^3/uL (0.0-0.7) Basophils # (Auto) 0.7 x10^3/uL (0.0-0.2) Prothrombin Time 18.3 SEC (11.7-14.0) Prothromb Time International Ratio 1.6 (0.8-1.1) Fibrinogen 185 mg/dL (200-440) Sodium Level 138 mmol/L (136-145) Potassium Level 4.5 mmol/L (3.5-5.1) Chloride Level 101 mmol/L (98-107) Carbon Dioxide Level 26 mmol/L (21-32) Anion Gap 11 (6-14) Blood Urea Nitrogen 40 mg/dL (7-20) Creatinine 4.5 mg/dL (0.6-1.0) Estimated GFR (Cockcroft-Gault) 11.7 BUN/Creatinine Ratio 9 (6-20) Glucose Level 135 mg/dL (70-99) Calcium Level 7.5 mg/dL (8.5-10.1) Total Bilirubin 0.7 mg/dL (0.2-1.0) Aspartate Amino Transf (AST/SGOT) 63 U/L (15-37) Alanine Aminotransferase (ALT/SGPT) 18 U/L (14-59) Alkaline Phosphatase 124 U/L (46-116) Total Protein 5.1 g/dL (6.4-8.2) Albumin 2.4 g/dL (3.4-5.0) Albumin/Globulin Ratio 0.9 (1.0-1.7) Random Vancomycin Level 14.4 mcg/mL Laboratory Tests Test 02/15/17 13:01 02/15/17 16:58 02/16/17 05:10 02/16/17 05:18 Glucose (Fingerstick) 114 mg/dL (70-99) 141 mg/dL (70-99) Lactic Acid Level 2.7 mmol/L (0.4-2.0) White Blood Count 80.2 x10^3/uL (4.0-11.0) Red Blood Count 1.93 x10^6/uL (3.50-5.40) Hemoglobin 5.4 g/dL (12.0-15.5) Hematocrit 16.7 % (36.0-47.0) Mean Corpuscular Volume 86 fL (79-100) Mean Corpuscular Hemoglobin 28 pg (25-35) Mean Corpuscular Hemoglobin Concent 32 g/dL (31-37) Red Cell Distribution Width 21.6 % (11.5-14.5) Platelet Count 704 x10^3/uL (140-400) Neutrophils (%) (Auto) 96 % (31-73) Lymphocytes (%) (Auto) 2 % (24-48) Monocytes (%) (Auto) 1 % (0-9) Eosinophils (%) (Auto) 0 % (0-3) Basophils (%) (Auto) 1 % (0-3) Neutrophils # (Auto) 76.7 x10^3uL (1.8-7.7) Lymphocytes # (Auto) 1.7 x10^3/uL (1.0-4.8) Monocytes # (Auto) 0.9 x10^3/uL (0.0-1.1) Eosinophils # (Auto) 0.2 x10^3/uL (0.0-0.7) Basophils # (Auto) 0.7 x10^3/uL (0.0-0.2) Prothrombin Time 18.3 SEC (11.7-14.0) Prothromb Time International Ratio 1.6 (0.8-1.1) Fibrinogen 185 mg/dL (200-440) Sodium Level 138 mmol/L (136-145) Potassium Level 4.5 mmol/L (3.5-5.1) Chloride Level 101 mmol/L (98-107) Carbon Dioxide Level 26 mmol/L (21-32) Anion Gap 11 (6-14) Blood Urea Nitrogen 40 mg/dL (7-20) Creatinine 4.5 mg/dL (0.6-1.0) Estimated GFR (Cockcroft-Gault) 11.7 BUN/Creatinine Ratio 9 (6-20) Glucose Level 135 mg/dL (70-99) Calcium Level 7.5 mg/dL (8.5-10.1) Total Bilirubin 0.7 mg/dL (0.2-1.0) Aspartate Amino Transf (AST/SGOT) 63 U/L (15-37) Alanine Aminotransferase (ALT/SGPT) 18 U/L (14-59) Alkaline Phosphatase 124 U/L (46-116) Total Protein 5.1 g/dL (6.4-8.2) Albumin 2.4 g/dL (3.4-5.0) Albumin/Globulin Ratio 0.9 (1.0-1.7) Random Vancomycin Level 14.4 mcg/mL Medications Active Scripts Medications Dose Route/Sig Max Daily Dose Days Date Category Lantus Solostar (Insulin Glargine,Hum.rec.anlog) 100 Unit/1 Ml Insuln.pen 22 Unit SQ QHS 02/15/17 Reported Droxia (Hydroxyurea) 200 Mg Capsule 200 Mg PO DAILY 02/15/17 Reported Feosol (Ferrous Sulfate) 325 Mg Tablet 325 Mg PO DAILY 02/15/17 Reported Coreg (Carvedilol) 12.5 Mg Tablet 1 Tab PO BID 02/15/17 Reported Bumetanide 2 Mg Tablet 2 Tab PO BID 02/15/17 Reported Aspir 81 (Aspirin) 81 Mg Tablet.dr 1 Tab PO DAILY 02/15/17 Reported Allopurinol 300 Mg Tablet 1 Tab PO DAILY 02/15/17 Reported Advair 250-50 Diskus (Fluticasone/Salmeterol) 1 Each Disk.w.dev 1 Puff IH Q12HR 02/15/17 Reported Zetia (Ezetimibe) 10 Mg Tablet 0.5 Tab PO DAILY 02/15/17 Reported Zemplar (Paricalcitol) 1 Mcg Capsule 1 Cap PO DAILY 02/15/17 Reported Sodium Bicarbonate 650 Mg Tablet 850 Mg PO BID 02/15/17 Reported Sensipar (Cinacalcet Hcl) 30 Mg Tablet 30 Mg PO QODAY 02/15/17 Reported Renvela (Sevelamer Carbonate) 800 Mg Tablet 2 Tab PO TID 02/15/17 Reported Proair Hfa Inhaler (Albuterol Sulfate) 8.5 Gm Hfa.aer.ad 2 Puff INH PRN Q4HRS PRN 02/15/17 Reported Omeprazole 40 Mg Capsule.dr 1 Cap PO DAILY 02/15/17 Reported Percocet 5-325 Mg Tablet (Oxycodone/Acetaminophen) 1 Each Tablet 1-2 Tab PO PRN Q6HRS PRN 02/15/17 Reported Novolog Flexpen (Insulin Aspart) 100 Unit/1 Ml Insuln.pen 15 Unit SQ DAILY 02/15/17 Reported Novolog Flexpen (Insulin Aspart) 100 Unit/1 Ml Insuln.pen 12 Unit SQ BIDACBL 02/15/17 Reported Norvasc (Amlodipine Besylate) 10 Mg Tablet 10 Mg PO DAILY 02/15/17 Reported Miralax (Polyethylene Glycol 3350) 17 Gm Powd.pack 1 Packet PO DAILY 02/15/17 Reported Lipitor (Atorvastatin Calcium) 40 Mg Tablet 1 Tab PO DAILY 02/15/17 Reported Lidocaine 1 Each Adh..patch 1 Each TP DAILY 02/15/17 Reported Impression . CONSULT DICTATED AGREE WITH CURRENT RX ASTHMA APPEARS COMPENSATED JAVY AIRSPACE DIZ SEC TO ATELECTASIS DENISE MCKINNON MD Feb 16, 2017 09:06
--- NOTE | 2017-02-16 09:07 | PDOC ---
PROGRESS NOTES Subjective Subjective c/c - f/u of Secondary myelofibrosis ROS - anemia worse Objective Objective Vital Signs Date Time Temp Pulse Resp B/P (MAP) Pulse Ox O2 Delivery O2 Flow Rate FiO2 02/16/17 06:00 103 15 99/48 (65) 100 Room Air 02/16/17 04:00 97.3 97.3 Intake and Output 02/17/17 07:00 Intake Total 350 ml Balance 350 ml Blood Product IV Normal Saline Flush 350 ml Physical Exam Heart: Normal S1, Normal S2 General: Alert, Oriented X3 Lungs: Clear to auscultation Neuro: Normal speech Psych/Mental Status: Mental status NL Assessment Assessment Problems Medical Problems: (1) Anemia Status: Acute (2) Coagulopathy Status: Acute (3) Congestive heart failure Status: Acute (4) End stage renal disease Status: Acute (5) Hypoglycemia Status: Acute (6) Hypotension Status: Acute (7) Myelodysplastic syndrome Status: Acute IMPRESSION AND PLAN: 1. 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 She was off hydroxyurea for almost 2-3 weeks prior to this admission because of renal failure. Her blood counts are significantly worse with worsening WBC and worsening platelets. Hence, I resumed hydroxyurea 02/15/17. Elevated platelet counts in patients with essential thrombocythemia can also increase the risk of bleeding. Hence, it is essential to decrease the platelet counts with the help of hydroxyurea. I will continue to monitor WBC, hemoglobin, and platelet counts closely while she is on hydroxyurea. 2. Hematoma, intraabdominal, due to recent peritoneal dialysis catheter placement. Her INR is elevated at 1.8. She already received 3 units of FFP and s/p 1 dose of vitamin K 02/15/17. Her creatinine is 6.6 with BUN of 65. Patients with uncontrolled myeloproliferative disorder and the patients with uremia can have deficiency of von Willebrand factor. s/p 20 mcg of DDAVP 02/15/17 for management of the underlying hematoma. 3. Sepsis. Appreciate ID consultation. 4. Leukocytosis due to myelofibrosis. 5. Thrombocytosis due to myelofibrosis. Plan hydroxyurea as described above. 6. Anemia - agree to transfuse 7. Coagulopathy - s/p FFP/Vit K/DDAVP Comment Review of Relevant I have reviewed the following items laure (where applicable) has been applied. Labs Laboratory Tests Test 02/14/17 21:00 02/14/17 21:04 02/14/17 21:18 02/14/17 21:45 White Blood Count 67.7 x10^3/uL (4.0-11.0) Red Blood Count 1.56 x10^6/uL (3.50-5.40) Hemoglobin 4.2 g/dL (12.0-15.5) Hematocrit 14.7 % (36.0-47.0) Mean Corpuscular Volume 94 fL (79-100) Mean Corpuscular Hemoglobin 27 pg (25-35) Mean Corpuscular Hemoglobin Concent 29 g/dL (31-37) Red Cell Distribution Width 27.8 % (11.5-14.5) Platelet Count 864 x10^3/uL (140-400) Neutrophils (%) (Auto) 93 % (31-73) Lymphocytes (%) (Auto) 3 % (24-48) Monocytes (%) (Auto) 3 % (0-9) Eosinophils (%) (Auto) 1 % (0-3) Basophils (%) (Auto) 1 % (0-3) Neutrophils # (Auto) 62.7 x10^3uL (1.8-7.7) Lymphocytes # (Auto) 2.0 x10^3/uL (1.0-4.8) Monocytes # (Auto) 1.7 x10^3/uL (0.0-1.1) Eosinophils # (Auto) 0.5 x10^3/uL (0.0-0.7) Basophils # (Auto) 0.8 x10^3/uL (0.0-0.2) Segmented Neutrophils % 76 % (35-66) Band Neutrophils % 19 % (0-9) Lymphocytes % 2 % (24-48) Eosinophils % 1 % (0-5) Metamyelocytes % 1 % (0-0) Myelocytes % 1 % (0-0) Toxic Granulation Slight Platelet Estimate Increased (ADEQUATE) Giant Platelets Few Polychromasia Mod Hypochromasia Mod Poikilocytosis Mod Anisocytosis Marked Spherocytes Few Schistocytes Few Prothrombin Time 19.7 SEC (11.7-14.0) Prothromb Time International Ratio 1.8 (0.8-1.1) Activated Partial Thromboplast Time 45 SEC (24-38) Sodium Level 139 mmol/L (136-145) Potassium Level 4.2 mmol/L (3.5-5.1) Chloride Level 101 mmol/L (98-107) Carbon Dioxide Level 29 mmol/L (21-32) Anion Gap 9 (6-14) Blood Urea Nitrogen 69 mg/dL (7-20) Creatinine 7.2 mg/dL (0.6-1.0) Estimated GFR (Cockcroft-Gault) 5.6 BUN/Creatinine Ratio 10 (6-20) Glucose Level 79 mg/dL (70-99) Lactic Acid Level 2.7 mmol/L (0.4-2.0) Calcium Level 7.6 mg/dL (8.5-10.1) Magnesium Level 2.0 mg/dL (1.8-2.4) Total Bilirubin 0.3 mg/dL (0.2-1.0) Aspartate Amino Transf (AST/SGOT) 70 U/L (15-37) Alanine Aminotransferase (ALT/SGPT) 11 U/L (14-59) Alkaline Phosphatase 125 U/L (46-116) Total Protein 4.7 g/dL (6.4-8.2) Albumin 2.1 g/dL (3.4-5.0) Albumin/Globulin Ratio 0.8 (1.0-1.7) Glucose (Fingerstick) 95 mg/dL (70-99) 67 mg/dL (70-99) 140 mg/dL (70-99) Test 02/14/17 21:57 02/14/17 22:10 02/14/17 22:45 02/14/17 23:05 Stool Occult Blood Positive (NEG) Glucose (Fingerstick) 108 mg/dL (70-99) 73 mg/dL (70-99) Urine Collection Type U cath Urine Color Yellow Urine Clarity Cloudy Urine pH 5.0 Urine Specific [place] 1.020 Urine Protein >=300 mg/dL (NEG-TRACE) Urine Glucose (UA) Negative mg/dL (NEG) Urine Ketones (Stick) Negative mg/dL (NEG) Urine Blood Negative (NEG) Urine Nitrite Negative (NEG) Urine Bilirubin Negative (NEG) Urine Urobilinogen Dipstick 0.2 mg/dL (0.2 mg/dL) Urine Leukocyte Esterase Small (NEG) Urine RBC Occ /HPF (0-2) Urine WBC 1-4 /HPF (0-4) Urine Squamous Epithelial Cells Occ /LPF Urine Transitional Epithelial Cells Occ /LPF Urine Bacteria Few /HPF (0-FEW) Urine Hyaline Casts Few /HPF Urine Granular Casts Occasional /HPF Urine Waxy Casts Occasional /HPF Urine Mucus Slight /LPF Urine Opiates Screen Pos (NEG) Urine Methadone Screen Neg (NEG) Urine Barbiturates Neg (NEG) Urine Phencyclidine Screen Neg (NEG) Urine Amphetamine/Methamphetamine Neg (NEG) Urine Benzodiazepines Screen Neg (NEG) Urine Cocaine Screen Neg (NEG) Urine Cannabinoids Screen Neg (NEG) Urine Ethyl Alcohol Neg (NEG) Test 02/14/17 23:30 02/14/17 23:45 02/15/17 00:45 02/15/17 01:15 Glucose (Fingerstick) 151 mg/dL (70-99) Lactic Acid Level 2.9 mmol/L (0.4-2.0) 2.9 mmol/L (0.4-2.0) Nasal Screen MRSA (PCR) Negative (Negative) Test 02/15/17 08:16 02/15/17 09:00 02/15/17 13:01 02/15/17 16:58 Glucose (Fingerstick) 112 mg/dL (70-99) 114 mg/dL (70-99) 141 mg/dL (70-99) White Blood Count 67.0 x10^3/uL (4.0-11.0) Red Blood Count 3.17 x10^6/uL (3.50-5.40) Hemoglobin 8.7 g/dL (12.0-15.5) Hematocrit 26.9 % (36.0-47.0) Mean Corpuscular Volume 85 fL (79-100) Mean Corpuscular Hemoglobin 27 pg (25-35) Mean Corpuscular Hemoglobin Concent 32 g/dL (31-37) Red Cell Distribution Width 20.6 % (11.5-14.5) Platelet Count 841 x10^3/uL (140-400) Neutrophils (%) (Auto) 95 % (31-73) Lymphocytes (%) (Auto) 2 % (24-48) Monocytes (%) (Auto) 2 % (0-9) Eosinophils (%) (Auto) 1 % (0-3) Basophils (%) (Auto) 1 % (0-3) Neutrophils # (Auto) 63.8 x10^3uL (1.8-7.7) Lymphocytes # (Auto) 1.2 x10^3/uL (1.0-4.8) Monocytes # (Auto) 1.4 x10^3/uL (0.0-1.1) Eosinophils # (Auto) 0.3 x10^3/uL (0.0-0.7) Basophils # (Auto) 0.3 x10^3/uL (0.0-0.2) Sodium Level 139 mmol/L (136-145) Potassium Level 4.8 mmol/L (3.5-5.1) Chloride Level 101 mmol/L (98-107) Carbon Dioxide Level 25 mmol/L (21-32) Anion Gap 13 (6-14) Blood Urea Nitrogen 65 mg/dL (7-20) Creatinine 6.6 mg/dL (0.6-1.0) Estimated GFR (Cockcroft-Gault) 7.5 Glucose Level 114 mg/dL (70-99) Calcium Level 7.3 mg/dL (8.5-10.1) Phosphorus Level 4.7 mg/dL (2.6-4.7) Albumin 2.5 g/dL (3.4-5.0) Lipase 146 U/L (73-393) Procalcitonin 1.98 ng/mL (0.00-0.10) Thyroid Stimulating Hormone (TSH) 6.503 uIU/mL (0.358-3.74) Test 02/16/17 05:10 02/16/17 05:18 Lactic Acid Level 2.7 mmol/L (0.4-2.0) White Blood Count 80.2 x10^3/uL (4.0-11.0) Red Blood Count 1.93 x10^6/uL (3.50-5.40) Hemoglobin 5.4 g/dL (12.0-15.5) Hematocrit 16.7 % (36.0-47.0) Mean Corpuscular Volume 86 fL (79-100) Mean Corpuscular Hemoglobin 28 pg (25-35) Mean Corpuscular Hemoglobin Concent 32 g/dL (31-37) Red Cell Distribution Width 21.6 % (11.5-14.5) Platelet Count 704 x10^3/uL (140-400) Neutrophils (%) (Auto) 96 % (31-73) Lymphocytes (%) (Auto) 2 % (24-48) Monocytes (%) (Auto) 1 % (0-9) Eosinophils (%) (Auto) 0 % (0-3) Basophils (%) (Auto) 1 % (0-3) Neutrophils # (Auto) 76.7 x10^3uL (1.8-7.7) Lymphocytes # (Auto) 1.7 x10^3/uL (1.0-4.8) Monocytes # (Auto) 0.9 x10^3/uL (0.0-1.1) Eosinophils # (Auto) 0.2 x10^3/uL (0.0-0.7) Basophils # (Auto) 0.7 x10^3/uL (0.0-0.2) Prothrombin Time 18.3 SEC (11.7-14.0) Prothromb Time International Ratio 1.6 (0.8-1.1) Fibrinogen 185 mg/dL (200-440) Sodium Level 138 mmol/L (136-145) Potassium Level 4.5 mmol/L (3.5-5.1) Chloride Level 101 mmol/L (98-107) Carbon Dioxide Level 26 mmol/L (21-32) Anion Gap 11 (6-14) Blood Urea Nitrogen 40 mg/dL (7-20) Creatinine 4.5 mg/dL (0.6-1.0) Estimated GFR (Cockcroft-Gault) 11.7 BUN/Creatinine Ratio 9 (6-20) Glucose Level 135 mg/dL (70-99) Calcium Level 7.5 mg/dL (8.5-10.1) Total Bilirubin 0.7 mg/dL (0.2-1.0) Aspartate Amino Transf (AST/SGOT) 63 U/L (15-37) Alanine Aminotransferase (ALT/SGPT) 18 U/L (14-59) Alkaline Phosphatase 124 U/L (46-116) Total Protein 5.1 g/dL (6.4-8.2) Albumin 2.4 g/dL (3.4-5.0) Albumin/Globulin Ratio 0.9 (1.0-1.7) Random Vancomycin Level 14.4 mcg/mL Laboratory Tests Test 02/15/17 13:01 02/15/17 16:58 02/16/17 05:10 02/16/17 05:18 Glucose (Fingerstick) 114 mg/dL (70-99) 141 mg/dL (70-99) Lactic Acid Level 2.7 mmol/L (0.4-2.0) White Blood Count 80.2 x10^3/uL (4.0-11.0) Red Blood Count 1.93 x10^6/uL (3.50-5.40) Hemoglobin 5.4 g/dL (12.0-15.5) Hematocrit 16.7 % (36.0-47.0) Mean Corpuscular Volume 86 fL (79-100) Mean Corpuscular Hemoglobin 28 pg (25-35) Mean Corpuscular Hemoglobin Concent 32 g/dL (31-37) Red Cell Distribution Width 21.6 % (11.5-14.5) Platelet Count 704 x10^3/uL (140-400) Neutrophils (%) (Auto) 96 % (31-73) Lymphocytes (%) (Auto) 2 % (24-48) Monocytes (%) (Auto) 1 % (0-9) Eosinophils (%) (Auto) 0 % (0-3) Basophils (%) (Auto) 1 % (0-3) Neutrophils # (Auto) 76.7 x10^3uL (1.8-7.7) Lymphocytes # (Auto) 1.7 x10^3/uL (1.0-4.8) Monocytes # (Auto) 0.9 x10^3/uL (0.0-1.1) Eosinophils # (Auto) 0.2 x10^3/uL (0.0-0.7) Basophils # (Auto) 0.7 x10^3/uL (0.0-0.2) Prothrombin Time 18.3 SEC (11.7-14.0) Prothromb Time International Ratio 1.6 (0.8-1.1) Fibrinogen 185 mg/dL (200-440) Sodium Level 138 mmol/L (136-145) Potassium Level 4.5 mmol/L (3.5-5.1) Chloride Level 101 mmol/L (98-107) Carbon Dioxide Level 26 mmol/L (21-32) Anion Gap 11 (6-14) Blood Urea Nitrogen 40 mg/dL (7-20) Creatinine 4.5 mg/dL (0.6-1.0) Estimated GFR (Cockcroft-Gault) 11.7 BUN/Creatinine Ratio 9 (6-20) Glucose Level 135 mg/dL (70-99) Calcium Level 7.5 mg/dL (8.5-10.1) Total Bilirubin 0.7 mg/dL (0.2-1.0) Aspartate Amino Transf (AST/SGOT) 63 U/L (15-37) Alanine Aminotransferase (ALT/SGPT) 18 U/L (14-59) Alkaline Phosphatase 124 U/L (46-116) Total Protein 5.1 g/dL (6.4-8.2) Albumin 2.4 g/dL (3.4-5.0) Albumin/Globulin Ratio 0.9 (1.0-1.7) Random Vancomycin Level 14.4 mcg/mL Microbiology 02/14/17 Blood Culture - Preliminary, Resulted NO GROWTH AFTER 1 DAY 02/14/17 Gram Stain - Final, Complete Medications Current Medications Dextrose (Dextrose 50%-Water Syringe) 25 gm STK-MED ONCE IV ; Start 02/14/17 at 21:20; Stop 02/14/17 at 21:21; Status DC Sodium Chloride 2,040 ml @ 510 mls/hr Q4H IV Last administered on 02/14/17 21 :33; Start 02/14/17 at 21:33; Stop 02/14/17 at 22:05; Status DC Vancomycin HCl (Vanco Per Pharmacy) 1 each PRN DAILY PRN MC SEE COMMENTS Last administered on 02/15/17 12:29; Start 02/14/17 at 22:00 Levofloxacin/ Dextrose (Levaquin Per Pharmacy) 1 each PRN DAILY PRN MC SEE COMMENTS; Start 02/14/17 at 23:00; Stop 02/15/17 at 07:38; Status DC Vancomycin HCl 1.75 gm/Sodium Chloride 500 ml @ 250 mls/hr 1X ONCE IV Last administered on 02/14/17 22:21; Start 02/14/17 at 22:15; Stop 02/15/17 at 00:14 ; Status DC Sodium Chloride 1,000 ml @ 510 mls/hr Q1H58M IV ; Start 02/14/17 at 22:15; Stop 02/15/17 at 01:32; Status DC Levofloxacin/ Dextrose 100 ml @ 100 mls/hr Q48H IV Last administered on 22:58; Start 02/14/17 at 23:00; Stop 02/15/17 at 07:38; Status DC Dextrose (Dextrose 50%-Water Syringe) 25 gm 1X ONCE IV Last administered on 22:52; Start 02/14/17 at 23:00; Stop 02/14/17 at 23:01; Status DC Dextrose (Dextrose 50%-Water Syringe) 25 gm 1X ONCE IV ; Start 02/14/17 at 23: 00; Stop 02/14/17 at 23:01; Status DC Furosemide (Lasix) 40 mg 1X PRN PRN IV blood transfusion; Start 02/14/17 at 23: 00; Stop 02/15/17 at 22:59; Status DC Dopamine HCl/ Dextrose 250 ml @ 12.688 mls/ hr CONT PRN IV SEE I/O RECORD Last administered on 02/14/17 23:44; Start 02/14/17 at 23:15 Ondansetron HCl (Zofran) 4 mg PRN Q6HRS PRN IV NAUSEA/VOMITING Last administered on 02/15/17 05:47; Start 02/14/17 at 23:15 Famotidine (Pepcid) 10 mg BID IVP Last administered on 02/15/17 21:13; Start 02/15/17 at 09:00 Acetaminophen (Tylenol) 120 mg PRN Q6HRS PRN WI MILD PAIN / TEMP; Start at 23:15 Acetaminophen (Tylenol) 500 mg PRN Q6HRS PRN PO MILD PAIN / TEMP; Start at 23:15 Vancomycin HCl 1 each 1X ONCE MC ; Start 02/16/17 at 22:30; Stop 02/16/17 at 22 :30; Status DC Ondansetron HCl (Zofran) 4 mg PRN Q8HRS PRN IV NAUSEA/VOMITING; Start 02/14/17 at 23:45; Stop 02/15/17 at 23:44; Status DC Dextrose/Sodium Chloride 1,000 ml @ 125 mls/hr 1X ONCE IV ; Start 02/14/17 at 23:45; Stop 02/15/17 at 07:44; Status DC Piperacillin Sod/ Tazobactam Sod 2.25 gm/Sodium Chloride 50 ml @ 100 mls/hr Q6HRS IV Last administered on 02/16/17 05:06; Start 02/15/17 at 07:30 Micafungin Sodium 100 mg/Dextrose 100 ml @ 100 mls/hr Q24H IV Last administered on 02/15/17 10:03; Start 02/15/17 at 08:00 Fentanyl Citrate (Fentanyl 2ml Vial) 50 mcg PRN Q2HR PRN IV PAIN Last administered on 02/15/17 23:49; Start 02/15/17 at 09:15 Morphine Sulfate 4 mg PRN Q2HR PRN IV PAIN Last administered on 02/16/17 00:50 ; Start 02/15/17 at 09:45 Sodium Chloride 1,000 ml @ 75 mls/hr [id number] IV Last administered on 22:30; Start 02/15/17 at 10:00 Phytonadione (Vitamin K Ampule) 10 mg 1X ONCE SQ Last administered on 11:35; Start 02/15/17 at 10:30; Stop 02/15/17 at 10:33; Status DC Desmopressin Acetate 20 mcg/ Sodium Chloride 55 ml @ 102 mls/hr 1X ONCE IV Last administered on 02/15/17 11:35; Start 02/15/17 at 11:00; Stop 02/15/17 at 11:32; Status DC Hydroxyurea (Hydrea) 500 mg QMWF PO Last administered on 02/15/17 23:48; Start 02/15/17 at 11:00 Lidocaine/Sodium Bicarbonate (Buffered Lidocaine 1%) 20 ml STK-MED ONCE IJ ; Start 02/15/17 at 11:23; Stop 02/15/17 at 11:24; Status DC Heparin Sodium/ Sodium Chloride 500 ml @ As Directed STK-MED ONCE .ROUTE ; Start 02/15/17 at 11:23; Stop 02/15/17 at 11:24; Status DC Heparin Sodium (Porcine) (Heparin Sodium) 10,000 unit STK-MED ONCE .ROUTE ; Start 02/15/17 at 11:49; Stop 02/15/17 at 11:50; Status DC Lidocaine/Sodium Bicarbonate (Buffered Lidocaine 1%) 3 ml 1X ONCE IJ Last administered on 02/15/17 12:14; Start 02/15/17 at 12:00; Stop 02/15/17 at 12:14 ; Status DC Heparin Sodium/ Sodium Chloride 60 unit 1X ONCE IV Last administered on 12:17; Start 02/15/17 at 12:00; Stop 02/15/17 at 12:14; Status DC Heparin Sodium (Porcine) (Heparin Sodium) 2,500 unit 1X ONCE INT CAT Last administered on 02/15/17 12:17; Start 02/15/17 at 12:00; Stop 02/15/17 at 12:14 ; Status DC Vancomycin HCl 1 each 1X ONCE MC Last administered on 02/16/17 05:00; Start 02/16/17 at 05:00; Stop 02/16/17 at 05:01; Status DC Sodium Chloride 1,000 ml @ 1,000 mls/hr Q1H PRN IV hypotension; Start 02/15/17 at 13:56; Stop 02/15/17 at 19:55; Status DC Sodium Chloride 1,000 ml @ 400 mls/hr Q2H30M PRN IV PATENCY; Start 02/15/17 at 13:56; Stop 02/16/17 at 01:55; Status DC Info (PHARMACY MONITORING -- do not chart) 1 each PRN DAILY PRN MC SEE COMMENTS ; Start 02/15/17 at 14:00; Status UNV Info (PHARMACY MONITORING -- do not chart) 1 each PRN DAILY PRN MC SEE COMMENTS ; Start 02/15/17 at 14:00 Albuterol Sulfate (Ventolin Neb Soln) 2.5 mg PRN Q4HRS PRN NEB SHORTNESS OF BREATH; Start 02/15/17 at 15:30 Active Scripts Active Reported Lantus Solostar (Insulin Glargine,Hum.rec.anlog) 100 Unit/1 Ml Insuln.pen 22 Unit SQ QHS Droxia (Hydroxyurea) 200 Mg Capsule 200 Mg PO DAILY Feosol (Ferrous Sulfate) 325 Mg Tablet 325 Mg PO DAILY Coreg (Carvedilol) 12.5 Mg Tablet 1 Tab PO BID Bumetanide 2 Mg Tablet 2 Tab PO BID Aspir 81 (Aspirin) 81 Mg Tablet.dr 1 Tab PO DAILY Allopurinol 300 Mg Tablet 1 Tab PO DAILY Advair 250-50 Diskus (Fluticasone/Salmeterol) 1 Each Disk.w.dev 1 Puff IH Q12HR Zetia (Ezetimibe) 10 Mg Tablet 0.5 Tab PO DAILY Zemplar (Paricalcitol) 1 Mcg Capsule 1 Cap PO DAILY Sodium Bicarbonate 650 Mg Tablet 850 Mg PO BID Sensipar (Cinacalcet Hcl) 30 Mg Tablet 30 Mg PO QODAY Renvela (Sevelamer Carbonate) 800 Mg Tablet 2 Tab PO TID Proair Hfa Inhaler (Albuterol Sulfate) 8.5 Gm Hfa.aer.ad 2 Puff INH PRN Q4HRS PRN Omeprazole 40 Mg Capsule.dr 1 Cap PO DAILY Percocet 5-325 Mg Tablet (Oxycodone/Acetaminophen) 1 Each Tablet 1-2 Tab PO PRN Q6HRS PRN Novolog Flexpen (Insulin Aspart) 100 Unit/1 Ml Insuln.pen 15 Unit SQ DAILY Novolog Flexpen (Insulin Aspart) 100 Unit/1 Ml Insuln.pen 12 Unit SQ BIDACBL Norvasc (Amlodipine Besylate) 10 Mg Tablet 10 Mg PO DAILY Miralax (Polyethylene Glycol 3350) 17 Gm Powd.pack 1 Packet PO DAILY Lipitor (Atorvastatin Calcium) 40 Mg Tablet 1 Tab PO DAILY Lidocaine 1 Each Adh..patch 1 Each TP DAILY Vitals/I & O Vital Sign - Last 24 Hours 02/15/17 02/15/17 02/15/17 02/15/17 09:16 10:00 11:00 11:24 Pulse 98 94 Resp 27 12 18 19 B/P (MAP) 106/50 (68) 129/60 (83) Pulse Ox 98 99 99 99 O2 Delivery Room Air Room Air Room Air Room Air 02/15/17 02/15/17 02/15/17 02/15/17 12:00 12:00 13:00 13:07 Temp 97.8 97.8 Pulse 98 102 Resp 20 18 18 B/P (MAP) 111/54 (73) 120/56 (77) Pulse Ox 97 98 99 O2 Delivery Room Air Room Air Room Air Room Air 02/15/17 02/15/17 02/15/17 02/15/17 14:00 14:52 15:00 15:30 Pulse 102 100 Resp 20 19 19 16 B/P (MAP) 115/62 (79) 125/57 (79) Pulse Ox 98 98 99 O2 Delivery Room Air Room Air Room Air 02/15/17 02/15/17 02/15/17 02/15/17 15:32 16:00 16:00 16:05 Temp 97.6 97.6 Pulse 107 Resp 20 18 16 B/P (MAP) 116/55 (75) Pulse Ox 98 100 O2 Delivery Room Air Room Air Room Air 02/15/17 02/15/17 02/15/17 02/15/17 16:32 17:00 18:00 19:00 Pulse 92 98 102 Resp 15 18 19 B/P (MAP) 116/55 (75) 99/53 (68) 118/57 (77) Pulse Ox 100 98 100 100 O2 Delivery Room Air Room Air Room Air Room Air 02/15/17 02/15/17 02/15/17 02/15/17 19:42 20:00 20:00 21:00 Temp 98.0 98.0 Pulse 94 96 Resp 14 16 B/P (MAP) 128/62 (84) 140/47 (78) Pulse Ox 99 100 97 O2 Delivery Room Air Room Air Room Air Room Air 02/15/17 02/15/17 02/15/17 02/15/17 21:21 21:51 22:00 22:34 Pulse 94 Resp 16 B/P (MAP) 116/49 (71) Pulse Ox 98 97 99 O2 Delivery Nasal Cannula Room Air Room Air Room Air 02/15/17 02/15/17 02/15/17 02/16/17 23:00 23:49 23:59 00:01 Temp 97.6 97.6 Pulse 104 107 Resp 16 20 B/P (MAP) 122/75 (91) 131/56 (81) Pulse Ox 96 99 99 O2 Delivery Room Air Room Air Room Air Room Air 02/16/17 02/16/17 02/16/17 02/16/17 00:19 00:50 01:00 01:20 Pulse 97 Resp 14 B/P (MAP) 119/48 (71) Pulse Ox 97 97 98 91 O2 Delivery Room Air Room Air Room Air 02/16/17 02/16/17 02/16/17 02/16/17 02:00 03:00 04:00 04:00 Temp 97.3 97.3 Pulse 98 105 100 Resp 14 12 14 B/P (MAP) 108/52 (70) 118/57 (77) 105/52 (69) Pulse Ox 98 96 91 O2 Delivery Room Air Room Air Room Air Room Air 02/16/17 02/16/17 05:00 06:00 Pulse 100 103 Resp 16 15 B/P (MAP) 102/47 (65) 99/48 (65) Pulse Ox 90 100 O2 Delivery Room Air Room Air Intake and Output 02/16/17 02/16/17 02/17/17 15:00 23:00 07:00 Intake Total 350 ml Balance 350 ml Nutrition Consultation Dietary Evaluation: Recommendations by RD: Increase Calorie Intake, PPN/TPN Comments: PPN/TPN if unable to inititate PO intake within 24-48 hrs Expected Outcomes/Goals: Initiation of nutrition within 24-48 hrs Interpretation of weight loss: >1-2% in 1 week Malnutrition Findings: Food and Nutrition Intake (Mod: <75% est energy req 7days Weight Status: Appropriate ALPESH BROWN MD Feb 16, 2017 09:07
--- NOTE | 2017-02-16 10:25 | PDOC ---
PROGRESS NOTES Chief Complaint Chief Complaint 1. Severe Anemia 2., Hx MDS with WBC 80K 3. Severe thormbocytosis, reactive likely from # 1 - inc chances of bleeding 4. ESRD recent PD cath insertion KU last week 5. TJ on ESRD, creat 7,.2, - k and bicarb ok, insert izquierdo now 6. Elevated LFTs, alk phosphatase in the background of severe hypotension and MDS 7. Hypotensive shock, hemorrhagic? anemia? SIRS vs sepsis with ORGAN dysfcn 8. Elevated iNR 1.8 - no bleeding obvious so far 9. Abd pain - per report, stat CT 10. Hypothermia, hypoglycemia - nedra hugger, dextrose -given and BS better 11. Acute metabolic enceph - RESOLVED AFTER 24 hrs History of Present Illness History of Present Illness Seen in ICU Abd pain better UP inc hair HGb down to 5 again today - for VT 2 prBC WBC 80K, started on Hydroxyurea by heme onc ABd pain still there but better with IV pain meds HIgh risk of bleeding if this pt would be operated on - bUT with the drop in hgb - if this persists, i,.e danny, might need to re image the abdomen CREat 4 plus, had first session HD yesterday thru temp HD cath PLAN: TRAnsfsue 2 pRBC COnt HYdroxyurea OK to start some liquid diet since no surgical plans - hold back if makes pain worse If hgb drops again danny, might need to re interval CT assess the intra abd bleed HD per renal - UO still remains nill Dw POLICE MATRON KEEP IN ICU cc 30 Vitals Vitals Vital Signs Date Time Temp Pulse Resp B/P (MAP) Pulse Ox O2 Delivery O2 Flow Rate FiO2 02/16/17 06:00 103 15 99/48 (65) 100 Room Air 02/16/17 04:00 97.3 97.3 Physical Exam General: Alert, Oriented X3 Heart: Normal S1, Normal S2 Abdomen: Normal bowel sounds, Other (DIFFUSELY TENDER TO PALPATION BUT NO REBOUND, PD SITE WITHOUT DRAINAGE) Extremities: No clubbing, No cyanosis Skin: No rashes, No significant lesion Labs LABS Laboratory Tests Test 02/15/17 13:01 02/15/17 16:58 02/16/17 05:10 02/16/17 05:18 Glucose (Fingerstick) 114 mg/dL (70-99) 141 mg/dL (70-99) Lactic Acid Level 2.7 mmol/L (0.4-2.0) White Blood Count 80.2 x10^3/uL (4.0-11.0) Red Blood Count 1.93 x10^6/uL (3.50-5.40) Hemoglobin 5.4 g/dL (12.0-15.5) Hematocrit 16.7 % (36.0-47.0) Mean Corpuscular Volume 86 fL (79-100) Mean Corpuscular Hemoglobin 28 pg (25-35) Mean Corpuscular Hemoglobin Concent 32 g/dL (31-37) Red Cell Distribution Width 21.6 % (11.5-14.5) Platelet Count 704 x10^3/uL (140-400) Neutrophils (%) (Auto) 96 % (31-73) Lymphocytes (%) (Auto) 2 % (24-48) Monocytes (%) (Auto) 1 % (0-9) Eosinophils (%) (Auto) 0 % (0-3) Basophils (%) (Auto) 1 % (0-3) Neutrophils # (Auto) 76.7 x10^3uL (1.8-7.7) Lymphocytes # (Auto) 1.7 x10^3/uL (1.0-4.8) Monocytes # (Auto) 0.9 x10^3/uL (0.0-1.1) Eosinophils # (Auto) 0.2 x10^3/uL (0.0-0.7) Basophils # (Auto) 0.7 x10^3/uL (0.0-0.2) Prothrombin Time 18.3 SEC (11.7-14.0) Prothromb Time International Ratio 1.6 (0.8-1.1) Fibrinogen 185 mg/dL (200-440) Sodium Level 138 mmol/L (136-145) Potassium Level 4.5 mmol/L (3.5-5.1) Chloride Level 101 mmol/L (98-107) Carbon Dioxide Level 26 mmol/L (21-32) Anion Gap 11 (6-14) Blood Urea Nitrogen 40 mg/dL (7-20) Creatinine 4.5 mg/dL (0.6-1.0) Estimated GFR (Cockcroft-Gault) 11.7 BUN/Creatinine Ratio 9 (6-20) Glucose Level 135 mg/dL (70-99) Calcium Level 7.5 mg/dL (8.5-10.1) Total Bilirubin 0.7 mg/dL (0.2-1.0) Aspartate Amino Transf (AST/SGOT) 63 U/L (15-37) Alanine Aminotransferase (ALT/SGPT) 18 U/L (14-59) Alkaline Phosphatase 124 U/L (46-116) Total Protein 5.1 g/dL (6.4-8.2) Albumin 2.4 g/dL (3.4-5.0) Albumin/Globulin Ratio 0.9 (1.0-1.7) Free Thyroxine 1.37 ng/dL (0.76-1.46) Free Triiodothyronine (T3) pg/mL 0.66 pg/mL (2.18-3.98) Random Vancomycin Level 14.4 mcg/mL Review of Systems Review of Systems abd pain Assessment and Plan Assessmemt and Plan Problems Medical Problems: (1) Anemia Status: Acute (2) Coagulopathy Status: Acute (3) Congestive heart failure Status: Acute (4) End stage renal disease Status: Acute (5) Hypoglycemia Status: Acute (6) Hypotension Status: Acute (7) Myelodysplastic syndrome Status: Acute Problems: Comment Review of Relevant I have reviewed the following items laure (where applicable) has been applied. Labs Laboratory Tests Test 02/14/17 21:00 02/14/17 21:04 02/14/17 21:18 02/14/17 21:45 White Blood Count 67.7 x10^3/uL (4.0-11.0) Red Blood Count 1.56 x10^6/uL (3.50-5.40) Hemoglobin 4.2 g/dL (12.0-15.5) Hematocrit 14.7 % (36.0-47.0) Mean Corpuscular Volume 94 fL (79-100) Mean Corpuscular Hemoglobin 27 pg (25-35) Mean Corpuscular Hemoglobin Concent 29 g/dL (31-37) Red Cell Distribution Width 27.8 % (11.5-14.5) Platelet Count 864 x10^3/uL (140-400) Neutrophils (%) (Auto) 93 % (31-73) Lymphocytes (%) (Auto) 3 % (24-48) Monocytes (%) (Auto) 3 % (0-9) Eosinophils (%) (Auto) 1 % (0-3) Basophils (%) (Auto) 1 % (0-3) Neutrophils # (Auto) 62.7 x10^3uL (1.8-7.7) Lymphocytes # (Auto) 2.0 x10^3/uL (1.0-4.8) Monocytes # (Auto) 1.7 x10^3/uL (0.0-1.1) Eosinophils # (Auto) 0.5 x10^3/uL (0.0-0.7) Basophils # (Auto) 0.8 x10^3/uL (0.0-0.2) Segmented Neutrophils % 76 % (35-66) Band Neutrophils % 19 % (0-9) Lymphocytes % 2 % (24-48) Eosinophils % 1 % (0-5) Metamyelocytes % 1 % (0-0) Myelocytes % 1 % (0-0) Toxic Granulation Slight Platelet Estimate Increased (ADEQUATE) Giant Platelets Few Polychromasia Mod Hypochromasia Mod Poikilocytosis Mod Anisocytosis Marked Spherocytes Few Schistocytes Few Prothrombin Time 19.7 SEC (11.7-14.0) Prothromb Time International Ratio 1.8 (0.8-1.1) Activated Partial Thromboplast Time 45 SEC (24-38) Sodium Level 139 mmol/L (136-145) Potassium Level 4.2 mmol/L (3.5-5.1) Chloride Level 101 mmol/L (98-107) Carbon Dioxide Level 29 mmol/L (21-32) Anion Gap 9 (6-14) Blood Urea Nitrogen 69 mg/dL (7-20) Creatinine 7.2 mg/dL (0.6-1.0) Estimated GFR (Cockcroft-Gault) 5.6 BUN/Creatinine Ratio 10 (6-20) Glucose Level 79 mg/dL (70-99) Lactic Acid Level 2.7 mmol/L (0.4-2.0) Calcium Level 7.6 mg/dL (8.5-10.1) Magnesium Level 2.0 mg/dL (1.8-2.4) Total Bilirubin 0.3 mg/dL (0.2-1.0) Aspartate Amino Transf (AST/SGOT) 70 U/L (15-37) Alanine Aminotransferase (ALT/SGPT) 11 U/L (14-59) Alkaline Phosphatase 125 U/L (46-116) Total Protein 4.7 g/dL (6.4-8.2) Albumin 2.1 g/dL (3.4-5.0) Albumin/Globulin Ratio 0.8 (1.0-1.7) Glucose (Fingerstick) 95 mg/dL (70-99) 67 mg/dL (70-99) 140 mg/dL (70-99) Test 02/14/17 21:57 02/14/17 22:10 02/14/17 22:45 02/14/17 23:05 Stool Occult Blood Positive (NEG) Glucose (Fingerstick) 108 mg/dL (70-99) 73 mg/dL (70-99) Urine Collection Type U cath Urine Color Yellow Urine Clarity Cloudy Urine pH 5.0 Urine Specific [place] 1.020 Urine Protein >=300 mg/dL (NEG-TRACE) Urine Glucose (UA) Negative mg/dL (NEG) Urine Ketones (Stick) Negative mg/dL (NEG) Urine Blood Negative (NEG) Urine Nitrite Negative (NEG) Urine Bilirubin Negative (NEG) Urine Urobilinogen Dipstick 0.2 mg/dL (0.2 mg/dL) Urine Leukocyte Esterase Small (NEG) Urine RBC Occ /HPF (0-2) Urine WBC 1-4 /HPF (0-4) Urine Squamous Epithelial Cells Occ /LPF Urine Transitional Epithelial Cells Occ /LPF Urine Bacteria Few /HPF (0-FEW) Urine Hyaline Casts Few /HPF Urine Granular Casts Occasional /HPF Urine Waxy Casts Occasional /HPF Urine Mucus Slight /LPF Urine Opiates Screen Pos (NEG) Urine Methadone Screen Neg (NEG) Urine Barbiturates Neg (NEG) Urine Phencyclidine Screen Neg (NEG) Urine Amphetamine/Methamphetamine Neg (NEG) Urine Benzodiazepines Screen Neg (NEG) Urine Cocaine Screen Neg (NEG) Urine Cannabinoids Screen Neg (NEG) Urine Ethyl Alcohol Neg (NEG) Test 02/14/17 23:30 02/14/17 23:45 02/15/17 00:45 02/15/17 01:15 Glucose (Fingerstick) 151 mg/dL (70-99) Lactic Acid Level 2.9 mmol/L (0.4-2.0) 2.9 mmol/L (0.4-2.0) Nasal Screen MRSA (PCR) Negative (Negative) Test 02/15/17 08:16 02/15/17 09:00 02/15/17 13:01 02/15/17 16:58 Glucose (Fingerstick) 112 mg/dL (70-99) 114 mg/dL (70-99) 141 mg/dL (70-99) White Blood Count 67.0 x10^3/uL (4.0-11.0) Red Blood Count 3.17 x10^6/uL (3.50-5.40) Hemoglobin 8.7 g/dL (12.0-15.5) Hematocrit 26.9 % (36.0-47.0) Mean Corpuscular Volume 85 fL (79-100) Mean Corpuscular Hemoglobin 27 pg (25-35) Mean Corpuscular Hemoglobin Concent 32 g/dL (31-37) Red Cell Distribution Width 20.6 % (11.5-14.5) Platelet Count 841 x10^3/uL (140-400) Neutrophils (%) (Auto) 95 % (31-73) Lymphocytes (%) (Auto) 2 % (24-48) Monocytes (%) (Auto) 2 % (0-9) Eosinophils (%) (Auto) 1 % (0-3) Basophils (%) (Auto) 1 % (0-3) Neutrophils # (Auto) 63.8 x10^3uL (1.8-7.7) Lymphocytes # (Auto) 1.2 x10^3/uL (1.0-4.8) Monocytes # (Auto) 1.4 x10^3/uL (0.0-1.1) Eosinophils # (Auto) 0.3 x10^3/uL (0.0-0.7) Basophils # (Auto) 0.3 x10^3/uL (0.0-0.2) Sodium Level 139 mmol/L (136-145) Potassium Level 4.8 mmol/L (3.5-5.1) Chloride Level 101 mmol/L (98-107) Carbon Dioxide Level 25 mmol/L (21-32) Anion Gap 13 (6-14) Blood Urea Nitrogen 65 mg/dL (7-20) Creatinine 6.6 mg/dL (0.6-1.0) Estimated GFR (Cockcroft-Gault) 7.5 Glucose Level 114 mg/dL (70-99) Calcium Level 7.3 mg/dL (8.5-10.1) Phosphorus Level 4.7 mg/dL (2.6-4.7) Albumin 2.5 g/dL (3.4-5.0) Lipase 146 U/L (73-393) Procalcitonin 1.98 ng/mL (0.00-0.10) Thyroid Stimulating Hormone (TSH) 6.503 uIU/mL (0.358-3.74) Test 02/16/17 05:10 02/16/17 05:18 Lactic Acid Level 2.7 mmol/L (0.4-2.0) White Blood Count 80.2 x10^3/uL (4.0-11.0) Red Blood Count 1.93 x10^6/uL (3.50-5.40) Hemoglobin 5.4 g/dL (12.0-15.5) Hematocrit 16.7 % (36.0-47.0) Mean Corpuscular Volume 86 fL (79-100) Mean Corpuscular Hemoglobin 28 pg (25-35) Mean Corpuscular Hemoglobin Concent 32 g/dL (31-37) Red Cell Distribution Width 21.6 % (11.5-14.5) Platelet Count 704 x10^3/uL (140-400) Neutrophils (%) (Auto) 96 % (31-73) Lymphocytes (%) (Auto) 2 % (24-48) Monocytes (%) (Auto) 1 % (0-9) Eosinophils (%) (Auto) 0 % (0-3) Basophils (%) (Auto) 1 % (0-3) Neutrophils # (Auto) 76.7 x10^3uL (1.8-7.7) Lymphocytes # (Auto) 1.7 x10^3/uL (1.0-4.8) Monocytes # (Auto) 0.9 x10^3/uL (0.0-1.1) Eosinophils # (Auto) 0.2 x10^3/uL (0.0-0.7) Basophils # (Auto) 0.7 x10^3/uL (0.0-0.2) Prothrombin Time 18.3 SEC (11.7-14.0) Prothromb Time International Ratio 1.6 (0.8-1.1) Fibrinogen 185 mg/dL (200-440) Sodium Level 138 mmol/L (136-145) Potassium Level 4.5 mmol/L (3.5-5.1) Chloride Level 101 mmol/L (98-107) Carbon Dioxide Level 26 mmol/L (21-32) Anion Gap 11 (6-14) Blood Urea Nitrogen 40 mg/dL (7-20) Creatinine 4.5 mg/dL (0.6-1.0) Estimated GFR (Cockcroft-Gault) 11.7 BUN/Creatinine Ratio 9 (6-20) Glucose Level 135 mg/dL (70-99) Calcium Level 7.5 mg/dL (8.5-10.1) Total Bilirubin 0.7 mg/dL (0.2-1.0) Aspartate Amino Transf (AST/SGOT) 63 U/L (15-37) Alanine Aminotransferase (ALT/SGPT) 18 U/L (14-59) Alkaline Phosphatase 124 U/L (46-116) Total Protein 5.1 g/dL (6.4-8.2) Albumin 2.4 g/dL (3.4-5.0) Albumin/Globulin Ratio 0.9 (1.0-1.7) Free Thyroxine 1.37 ng/dL (0.76-1.46) Free Triiodothyronine (T3) pg/mL 0.66 pg/mL (2.18-3.98) Random Vancomycin Level 14.4 mcg/mL Laboratory Tests Test 02/15/17 13:01 02/15/17 16:58 02/16/17 05:10 02/16/17 05:18 Glucose (Fingerstick) 114 mg/dL (70-99) 141 mg/dL (70-99) Lactic Acid Level 2.7 mmol/L (0.4-2.0) White Blood Count 80.2 x10^3/uL (4.0-11.0) Red Blood Count 1.93 x10^6/uL (3.50-5.40) Hemoglobin 5.4 g/dL (12.0-15.5) Hematocrit 16.7 % (36.0-47.0) Mean Corpuscular Volume 86 fL (79-100) Mean Corpuscular Hemoglobin 28 pg (25-35) Mean Corpuscular Hemoglobin Concent 32 g/dL (31-37) Red Cell Distribution Width 21.6 % (11.5-14.5) Platelet Count 704 x10^3/uL (140-400) Neutrophils (%) (Auto) 96 % (31-73) Lymphocytes (%) (Auto) 2 % (24-48) Monocytes (%) (Auto) 1 % (0-9) Eosinophils (%) (Auto) 0 % (0-3) Basophils (%) (Auto) 1 % (0-3) Neutrophils # (Auto) 76.7 x10^3uL (1.8-7.7) Lymphocytes # (Auto) 1.7 x10^3/uL (1.0-4.8) Monocytes # (Auto) 0.9 x10^3/uL (0.0-1.1) Eosinophils # (Auto) 0.2 x10^3/uL (0.0-0.7) Basophils # (Auto) 0.7 x10^3/uL (0.0-0.2) Prothrombin Time 18.3 SEC (11.7-14.0) Prothromb Time International Ratio 1.6 (0.8-1.1) Fibrinogen 185 mg/dL (200-440) Sodium Level 138 mmol/L (136-145) Potassium Level 4.5 mmol/L (3.5-5.1) Chloride Level 101 mmol/L (98-107) Carbon Dioxide Level 26 mmol/L (21-32) Anion Gap 11 (6-14) Blood Urea Nitrogen 40 mg/dL (7-20) Creatinine 4.5 mg/dL (0.6-1.0) Estimated GFR (Cockcroft-Gault) 11.7 BUN/Creatinine Ratio 9 (6-20) Glucose Level 135 mg/dL (70-99) Calcium Level 7.5 mg/dL (8.5-10.1) Total Bilirubin 0.7 mg/dL (0.2-1.0) Aspartate Amino Transf (AST/SGOT) 63 U/L (15-37) Alanine Aminotransferase (ALT/SGPT) 18 U/L (14-59) Alkaline Phosphatase 124 U/L (46-116) Total Protein 5.1 g/dL (6.4-8.2) Albumin 2.4 g/dL (3.4-5.0) Albumin/Globulin Ratio 0.9 (1.0-1.7) Free Thyroxine 1.37 ng/dL (0.76-1.46) Free Triiodothyronine (T3) pg/mL 0.66 pg/mL (2.18-3.98) Random Vancomycin Level 14.4 mcg/mL Microbiology 02/14/17 Blood Culture - Preliminary, Resulted NO GROWTH AFTER 1 DAY 02/14/17 Gram Stain - Final, Complete Medications Current Medications Dextrose (Dextrose 50%-Water Syringe) 25 gm STK-MED ONCE IV ; Start 02/14/17 at 21:20; Stop 02/14/17 at 21:21; Status DC Sodium Chloride 2,040 ml @ 510 mls/hr Q4H IV Last administered on 02/14/17 21 :33; Start 02/14/17 at 21:33; Stop 02/14/17 at 22:05; Status DC Vancomycin HCl (Vanco Per Pharmacy) 1 each PRN DAILY PRN MC SEE COMMENTS Last administered on 02/15/17 12:29; Start 02/14/17 at 22:00 Levofloxacin/ Dextrose (Levaquin Per Pharmacy) 1 each PRN DAILY PRN MC SEE COMMENTS; Start 02/14/17 at 23:00; Stop 02/15/17 at 07:38; Status DC Vancomycin HCl 1.75 gm/Sodium Chloride 500 ml @ 250 mls/hr 1X ONCE IV Last administered on 02/14/17 22:21; Start 02/14/17 at 22:15; Stop 02/15/17 at 00:14 ; Status DC Sodium Chloride 1,000 ml @ 510 mls/hr Q1H58M IV ; Start 02/14/17 at 22:15; Stop 02/15/17 at 01:32; Status DC Levofloxacin/ Dextrose 100 ml @ 100 mls/hr Q48H IV Last administered on 22:58; Start 02/14/17 at 23:00; Stop 02/15/17 at 07:38; Status DC Dextrose (Dextrose 50%-Water Syringe) 25 gm 1X ONCE IV Last administered on 22:52; Start 02/14/17 at 23:00; Stop 02/14/17 at 23:01; Status DC Dextrose (Dextrose 50%-Water Syringe) 25 gm 1X ONCE IV ; Start 02/14/17 at 23: 00; Stop 02/14/17 at 23:01; Status DC Furosemide (Lasix) 40 mg 1X PRN PRN IV blood transfusion; Start 02/14/17 at 23: 00; Stop 02/15/17 at 22:59; Status DC Dopamine HCl/ Dextrose 250 ml @ 12.688 mls/ hr CONT PRN IV SEE I/O RECORD Last administered on 02/14/17 23:44; Start 02/14/17 at 23:15 Ondansetron HCl (Zofran) 4 mg PRN Q6HRS PRN IV NAUSEA/VOMITING Last administered on 02/15/17 05:47; Start 02/14/17 at 23:15 Famotidine (Pepcid) 10 mg BID IVP Last administered on 02/15/17 21:13; Start 02/15/17 at 09:00 Acetaminophen (Tylenol) 120 mg PRN Q6HRS PRN ID MILD PAIN / TEMP; Start at 23:15 Acetaminophen (Tylenol) 500 mg PRN Q6HRS PRN PO MILD PAIN / TEMP; Start at 23:15 Vancomycin HCl 1 each 1X ONCE MC ; Start 02/16/17 at 22:30; Stop 02/16/17 at 22 :30; Status DC Ondansetron HCl (Zofran) 4 mg PRN Q8HRS PRN IV NAUSEA/VOMITING; Start 02/14/17 at 23:45; Stop 02/15/17 at 23:44; Status DC Dextrose/Sodium Chloride 1,000 ml @ 125 mls/hr 1X ONCE IV ; Start 02/14/17 at 23:45; Stop 02/15/17 at 07:44; Status DC Piperacillin Sod/ Tazobactam Sod 2.25 gm/Sodium Chloride 50 ml @ 100 mls/hr Q6HRS IV Last administered on 02/16/17 05:06; Start 02/15/17 at 07:30 Micafungin Sodium 100 mg/Dextrose 100 ml @ 100 mls/hr Q24H IV Last administered on 02/15/17 10:03; Start 02/15/17 at 08:00 Fentanyl Citrate (Fentanyl 2ml Vial) 50 mcg PRN Q2HR PRN IV PAIN Last administered on 02/15/17 23:49; Start 02/15/17 at 09:15 Morphine Sulfate 4 mg PRN Q2HR PRN IV PAIN Last administered on 02/16/17 00:50 ; Start 02/15/17 at 09:45 Sodium Chloride 1,000 ml @ 75 mls/hr [id number] IV Last administered on 22:30; Start 02/15/17 at 10:00 Phytonadione (Vitamin K Ampule) 10 mg 1X ONCE SQ Last administered on 11:35; Start 02/15/17 at 10:30; Stop 02/15/17 at 10:33; Status DC Desmopressin Acetate 20 mcg/ Sodium Chloride 55 ml @ 102 mls/hr 1X ONCE IV Last administered on 02/15/17 11:35; Start 02/15/17 at 11:00; Stop 02/15/17 at 11:32; Status DC Hydroxyurea (Hydrea) 500 mg QMWF PO Last administered on 02/15/17 23:48; Start 02/15/17 at 11:00 Lidocaine/Sodium Bicarbonate (Buffered Lidocaine 1%) 20 ml STK-MED ONCE IJ ; Start 02/15/17 at 11:23; Stop 02/15/17 at 11:24; Status DC Heparin Sodium/ Sodium Chloride 500 ml @ As Directed STK-MED ONCE .ROUTE ; Start 02/15/17 at 11:23; Stop 02/15/17 at 11:24; Status DC Heparin Sodium (Porcine) (Heparin Sodium) 10,000 unit STK-MED ONCE .ROUTE ; Start 02/15/17 at 11:49; Stop 02/15/17 at 11:50; Status DC Lidocaine/Sodium Bicarbonate (Buffered Lidocaine 1%) 3 ml 1X ONCE IJ Last administered on 02/15/17 12:14; Start 02/15/17 at 12:00; Stop 02/15/17 at 12:14 ; Status DC Heparin Sodium/ Sodium Chloride 60 unit 1X ONCE IV Last administered on 12:17; Start 02/15/17 at 12:00; Stop 02/15/17 at 12:14; Status DC Heparin Sodium (Porcine) (Heparin Sodium) 2,500 unit 1X ONCE INT CAT Last administered on 02/15/17t 12:17; Start 02/15/17 at 12:00; Stop 02/15/17 at 12:14 ; Status DC Vancomycin HCl 1 each 1X ONCE MC Last administered on 02/16/17t 05:00; Start 02/16/17 at 05:00; Stop 02/16/17 at 05:01; Status DC Sodium Chloride 1,000 ml @ 1,000 mls/hr Q1H PRN IV hypotension; Start 02/15/17 at 13:56; Stop 02/15/17 at 19:55; Status DC Sodium Chloride 1,000 ml @ 400 mls/hr Q2H30M PRN IV PATENCY; Start 02/15/17 at 13:56; Stop 02/16/17 at 01:55; Status DC Info (PHARMACY MONITORING -- do not chart) 1 each PRN DAILY PRN MC SEE COMMENTS ; Start 02/15/17 at 14:00; Status UNV Info (PHARMACY MONITORING -- do not chart) 1 each PRN DAILY PRN MC SEE COMMENTS ; Start 02/15/17 at 14:00 Albuterol Sulfate (Ventolin Neb Soln) 2.5 mg PRN Q4HRS PRN NEB SHORTNESS OF BREATH; Start 02/15/17 at 15:30 Active Scripts Active Reported Lantus Solostar (Insulin Glargine,Hum.rec.anlog) 100 Unit/1 Ml Insuln.pen 22 Unit SQ QHS Droxia (Hydroxyurea) 200 Mg Capsule 200 Mg PO DAILY Feosol (Ferrous Sulfate) 325 Mg Tablet 325 Mg PO DAILY Coreg (Carvedilol) 12.5 Mg Tablet 1 Tab PO BID Bumetanide 2 Mg Tablet 2 Tab PO BID Aspir 81 (Aspirin) 81 Mg Tablet.dr 1 Tab PO DAILY Allopurinol 300 Mg Tablet 1 Tab PO DAILY Advair 250-50 Diskus (Fluticasone/Salmeterol) 1 Each Disk.w.dev 1 Puff IH Q12HR Zetia (Ezetimibe) 10 Mg Tablet 0.5 Tab PO DAILY Zemplar (Paricalcitol) 1 Mcg Capsule 1 Cap PO DAILY Sodium Bicarbonate 650 Mg Tablet 850 Mg PO BID Sensipar (Cinacalcet Hcl) 30 Mg Tablet 30 Mg PO QODAY Renvela (Sevelamer Carbonate) 800 Mg Tablet 2 Tab PO TID Proair Hfa Inhaler (Albuterol Sulfate) 8.5 Gm Hfa.aer.ad 2 Puff INH PRN Q4HRS PRN Omeprazole 40 Mg Capsule.dr 1 Cap PO DAILY Percocet 5-325 Mg Tablet (Oxycodone/Acetaminophen) 1 Each Tablet 1-2 Tab PO PRN Q6HRS PRN Novolog Flexpen (Insulin Aspart) 100 Unit/1 Ml Insuln.pen 15 Unit SQ DAILY Novolog Flexpen (Insulin Aspart) 100 Unit/1 Ml Insuln.pen 12 Unit SQ BIDACBL Norvasc (Amlodipine Besylate) 10 Mg Tablet 10 Mg PO DAILY Miralax (Polyethylene Glycol 3350) 17 Gm Powd.pack 1 Packet PO DAILY Lipitor (Atorvastatin Calcium) 40 Mg Tablet 1 Tab PO DAILY Lidocaine 1 Each Adh..patch 1 Each TP DAILY Vitals/I & O Vital Sign - Last 24 Hours 02/15/17 02/15/17 02/15/17 02/15/17 11:00 11:24 12:00 12:00 Temp 97.8 97.8 Pulse 94 98 Resp 18 19 20 B/P (MAP) 129/60 (83) 111/54 (73) Pulse Ox 99 99 97 O2 Delivery Room Air Room Air Room Air Room Air 02/15/17 02/15/17 02/15/17 02/15/17 13:00 13:07 14:00 14:52 Pulse 102 102 Resp 18 18 20 19 B/P (MAP) 120/56 (77) 115/62 (79) Pulse Ox 98 99 98 98 O2 Delivery Room Air Room Air Room Air Room Air 02/15/17 02/15/17 02/15/17 02/15/17 15:00 15:30 15:32 16:00 Pulse 100 Resp 19 16 20 B/P (MAP) 125/57 (79) Pulse Ox 99 98 O2 Delivery Room Air Room Air Room Air 02/15/17 02/15/17 02/15/17 02/15/17 16:00 16:05 16:32 17:00 Temp 97.6 97.6 Pulse 107 92 Resp 18 16 15 B/P (MAP) 116/55 (75) 116/55 (75) Pulse Ox 100 100 98 O2 Delivery Room Air Room Air Room Air 02/15/17 02/15/17 02/15/17 02/15/17 18:00 19:00 19:42 20:00 Temp 98.0 98.0 Pulse 98 102 94 Resp 18 19 14 B/P (MAP) 99/53 (68) 118/57 (77) 128/62 (84) Pulse Ox 100 100 99 100 O2 Delivery Room Air Room Air Room Air Room Air 02/15/17 02/15/17 02/15/17 02/15/17 20:00 21:00 21:21 21:51 Pulse 96 Resp 16 B/P (MAP) 140/47 (78) Pulse Ox 97 98 O2 Delivery Room Air Room Air Nasal Cannula Room Air 02/15/17 02/15/17 02/15/17 02/15/17 22:00 22:34 23:00 23:49 Pulse 94 104 Resp 16 16 B/P (MAP) 116/49 (71) 122/75 (91) Pulse Ox 97 99 96 99 O2 Delivery Room Air Room Air Room Air Room Air 02/15/17 02/16/17 02/16/17 02/16/17 23:59 00:01 00:19 00:50 Temp 97.6 97.6 Pulse 107 Resp 20 B/P (MAP) 131/56 (81) Pulse Ox 99 97 97 O2 Delivery Room Air Room Air Room Air 02/16/17 02/16/17 02/16/17 02/16/17 01:00 01:20 02:00 03:00 Pulse 97 98 105 Resp 14 14 12 B/P (MAP) 119/48 (71) 108/52 (70) 118/57 (77) Pulse Ox 98 91 98 96 O2 Delivery Room Air Room Air Room Air Room Air 02/16/17 02/16/17 02/16/17 02/16/17 04:00 04:00 05:00 06:00 Temp 97.3 97.3 Pulse 100 100 103 Resp 14 16 15 B/P (MAP) 105/52 (69) 102/47 (65) 99/48 (65) Pulse Ox 91 90 100 O2 Delivery Room Air Room Air Room Air Room Air Intake and Output 02/16/17 02/16/17 02/17/17 14:59 22:59 06:59 Intake Total 350 ml Balance 350 ml Nutrition Consultation Dietary Evaluation: Recommendations by RD: Increase Calorie Intake, PPN/TPN Comments: PPN/TPN if unable to inititate PO intake within 24-48 hrs Expected Outcomes/Goals: Initiation of nutrition within 24-48 hrs Interpretation of weight loss: >1-2% in 1 week Malnutrition Findings: Food and Nutrition Intake (Mod: <75% est energy req 7days Weight Status: Appropriate CESAR MERCHANT MD Feb 16, 2017 10:25
--- NOTE | 2017-02-16 11:25 | PDOC ---
Renal-Progress Notes Subjective Notes Notes STILL HAVING ABD PAIN History of Present Illness Hx of present illness SAME Vitals Vitals Vital Signs Date Time Temp Pulse Resp B/P (MAP) Pulse Ox O2 Delivery O2 Flow Rate FiO2 02/16/17 06:00 103 15 99/48 (65) 100 Room Air 02/16/17 04:00 97.3 97.3 Weight Weight [ ] I.O. Intake and Output Intake and Output 02/17/17 07:00 Intake Total 750 ml Balance 750 ml Blood Product IV Normal Saline Flush 750 ml Labs Labs Laboratory Tests Test 02/15/17 13:01 02/15/17 16:58 02/16/17 05:10 02/16/17 05:18 Glucose (Fingerstick) 114 mg/dL (70-99) 141 mg/dL (70-99) Lactic Acid Level 2.7 mmol/L (0.4-2.0) White Blood Count 80.2 x10^3/uL (4.0-11.0) Red Blood Count 1.93 x10^6/uL (3.50-5.40) Hemoglobin 5.4 g/dL (12.0-15.5) Hematocrit 16.7 % (36.0-47.0) Mean Corpuscular Volume 86 fL (79-100) Mean Corpuscular Hemoglobin 28 pg (25-35) Mean Corpuscular Hemoglobin Concent 32 g/dL (31-37) Red Cell Distribution Width 21.6 % (11.5-14.5) Platelet Count 704 x10^3/uL (140-400) Neutrophils (%) (Auto) 96 % (31-73) Lymphocytes (%) (Auto) 2 % (24-48) Monocytes (%) (Auto) 1 % (0-9) Eosinophils (%) (Auto) 0 % (0-3) Basophils (%) (Auto) 1 % (0-3) Neutrophils # (Auto) 76.7 x10^3uL (1.8-7.7) Lymphocytes # (Auto) 1.7 x10^3/uL (1.0-4.8) Monocytes # (Auto) 0.9 x10^3/uL (0.0-1.1) Eosinophils # (Auto) 0.2 x10^3/uL (0.0-0.7) Basophils # (Auto) 0.7 x10^3/uL (0.0-0.2) Prothrombin Time 18.3 SEC (11.7-14.0) Prothromb Time International Ratio 1.6 (0.8-1.1) Fibrinogen 185 mg/dL (200-440) Sodium Level 138 mmol/L (136-145) Potassium Level 4.5 mmol/L (3.5-5.1) Chloride Level 101 mmol/L (98-107) Carbon Dioxide Level 26 mmol/L (21-32) Anion Gap 11 (6-14) Blood Urea Nitrogen 40 mg/dL (7-20) Creatinine 4.5 mg/dL (0.6-1.0) Estimated GFR (Cockcroft-Gault) 11.7 BUN/Creatinine Ratio 9 (6-20) Glucose Level 135 mg/dL (70-99) Calcium Level 7.5 mg/dL (8.5-10.1) Total Bilirubin 0.7 mg/dL (0.2-1.0) Aspartate Amino Transf (AST/SGOT) 63 U/L (15-37) Alanine Aminotransferase (ALT/SGPT) 18 U/L (14-59) Alkaline Phosphatase 124 U/L (46-116) Total Protein 5.1 g/dL (6.4-8.2) Albumin 2.4 g/dL (3.4-5.0) Albumin/Globulin Ratio 0.9 (1.0-1.7) Free Thyroxine 1.37 ng/dL (0.76-1.46) Free Triiodothyronine (T3) pg/mL 0.66 pg/mL (2.18-3.98) Random Vancomycin Level 14.4 mcg/mL Micro Micro Microbiology 02/14/17 Blood Culture - Preliminary, Resulted NO GROWTH AFTER 1 DAY 02/14/17 Gram Stain - Final, Complete Review of Systems Constitutional: yes: malaise, weakness, alert, oriented Ears/Nose/Throat: Yes: no symptom reported Eyes: Yes: no symptom reported Pulmonary: Yes no symptom reported Cardiovascular: Yes no symptom reported Gastrointestional: Yes: abdominal pain Genitourinary: Yes: no symptom reported Psychiatric/Neurological: Yes: no symptom reported Endocrine: Yes: no symptom reported Hematologic/Lymphatic: Yes: no symptom reported Physical Exam General Appearance: no apparent distress Skin: warm Respiratory: decreased breath sounds Heart: S1S2, RRR Abdomen: soft, bowel sounds present Genitourinary: bladder flat Extremities: pulses present Neurology: alert, oriented Assessment Assessment IMP NEW ESRD UREMIA ANEMIA MYELOFIBROSIS COAGULOPATHY DM II ABD HEMATOMA S/P NEW PD CATH PLACEMENT AT [facility] LAST WK S/P TEMP HD CATHETER LEUCOCYTOSIS SEPSIS ID FOLLOWING PLAN HEMODYNAMIC SUPPORT HEMATOLOGY FOLLOWING [facility] TODAY ANTIBIOTICS HD TODAY UF MINIMAL SURGERY FOLLOWING NO PLANS TO USE PD CATHETER HAVE UPDATED FAMILY REMAINS IN SERIOUS CONDITION BRENDON MEYERS MD Feb 16, 2017 11:25
[2017-02-16] MEDS: FAMOTIDINE 20 MG/2 ML VIAL IVP SCH ×2 (12:31→22:49)
[2017-02-16] MEDS: MICAFUNGIN 100 MG in IV DEXTROSE 5% 100 ML IV SCH (12:31)
[2017-02-16] MEDS: VANCOMYCIN PER PHARMACY MC PRN (12:49)
[2017-02-16 13:19] LABS: HEP B SURFACE ABDY Non Reactive (.)
[2017-02-16] MEDS ORDERED: IV NORMAL SALINE 1000ML BAG 1,000 ML IV PRN ×2 (13:41)
[2017-02-16] MEDS ORDERED: DIALYSIS PATIENT. MC PRN (13:45)
--- NOTE | 2017-02-16 13:48 | PDOC ---
SHUBHAM MIDDLETON REPORT WRITER 02/16/17 1348: SURGICAL PROGRESS NOTE Subjective abdominal pain on exam niece present, asking about PD cath removal Vital Signs Vital Signs Date Time Temp Pulse Resp B/P (MAP) Pulse Ox O2 Delivery O2 Flow Rate FiO2 02/16/17 12:35 100 Room Air 02/16/17 06:00 103 15 99/48 (65) 02/16/17 04:00 97.3 97.3 I&O Intake and Output 02/17/17 07:00 Intake Total 750 ml Balance 750 ml Blood Product IV Normal Saline Flush 750 ml General: Alert, Cooperative Abdomen: Soft, Other (abdominal TTP, pd cath in place) Labs Laboratory Tests Test 02/14/17 21:00 02/14/17 21:04 02/14/17 21:18 02/14/17 21:45 White Blood Count 67.7 x10^3/uL (4.0-11.0) Red Blood Count 1.56 x10^6/uL (3.50-5.40) Hemoglobin 4.2 g/dL (12.0-15.5) Hematocrit 14.7 % (36.0-47.0) Mean Corpuscular Volume 94 fL (79-100) Mean Corpuscular Hemoglobin 27 pg (25-35) Mean Corpuscular Hemoglobin Concent 29 g/dL (31-37) Red Cell Distribution Width 27.8 % (11.5-14.5) Platelet Count 864 x10^3/uL (140-400) Neutrophils (%) (Auto) 93 % (31-73) Lymphocytes (%) (Auto) 3 % (24-48) Monocytes (%) (Auto) 3 % (0-9) Eosinophils (%) (Auto) 1 % (0-3) Basophils (%) (Auto) 1 % (0-3) Neutrophils # (Auto) 62.7 x10^3uL (1.8-7.7) Lymphocytes # (Auto) 2.0 x10^3/uL (1.0-4.8) Monocytes # (Auto) 1.7 x10^3/uL (0.0-1.1) Eosinophils # (Auto) 0.5 x10^3/uL (0.0-0.7) Basophils # (Auto) 0.8 x10^3/uL (0.0-0.2) Segmented Neutrophils % 76 % (35-66) Band Neutrophils % 19 % (0-9) Lymphocytes % 2 % (24-48) Eosinophils % 1 % (0-5) Metamyelocytes % 1 % (0-0) Myelocytes % 1 % (0-0) Toxic Granulation Slight Platelet Estimate Increased (ADEQUATE) Giant Platelets Few Polychromasia Mod Hypochromasia Mod Poikilocytosis Mod Anisocytosis Marked Spherocytes Few Schistocytes Few Prothrombin Time 19.7 SEC (11.7-14.0) Prothromb Time International Ratio 1.8 (0.8-1.1) Activated Partial Thromboplast Time 45 SEC (24-38) Sodium Level 139 mmol/L (136-145) Potassium Level 4.2 mmol/L (3.5-5.1) Chloride Level 101 mmol/L (98-107) Carbon Dioxide Level 29 mmol/L (21-32) Anion Gap 9 (6-14) Blood Urea Nitrogen 69 mg/dL (7-20) Creatinine 7.2 mg/dL (0.6-1.0) Estimated GFR (Cockcroft-Gault) 5.6 BUN/Creatinine Ratio 10 (6-20) Glucose Level 79 mg/dL (70-99) Lactic Acid Level 2.7 mmol/L (0.4-2.0) Calcium Level 7.6 mg/dL (8.5-10.1) Magnesium Level 2.0 mg/dL (1.8-2.4) Total Bilirubin 0.3 mg/dL (0.2-1.0) Aspartate Amino Transf (AST/SGOT) 70 U/L (15-37) Alanine Aminotransferase (ALT/SGPT) 11 U/L (14-59) Alkaline Phosphatase 125 U/L (46-116) Total Protein 4.7 g/dL (6.4-8.2) Albumin 2.1 g/dL (3.4-5.0) Albumin/Globulin Ratio 0.8 (1.0-1.7) Glucose (Fingerstick) 95 mg/dL (70-99) 67 mg/dL (70-99) 140 mg/dL (70-99) Test 02/14/17 21:50 02/14/17 21:57 02/14/17 22:10 02/14/17 22:45 Hepatitis B Surface Antigen Negative (Negative) Hepatitis B Surface Antibody Non reactive (.) Stool Occult Blood Positive (NEG) Glucose (Fingerstick) 108 mg/dL (70-99) 73 mg/dL (70-99) Test 02/14/17 23:05 02/14/17 23:30 02/14/17 23:45 02/15/17 00:45 Urine Collection Type U cath Urine Color Yellow Urine Clarity Cloudy Urine pH 5.0 Urine Specific Dixon 1.020 Urine Protein >=300 mg/dL (NEG-TRACE) Urine Glucose (UA) Negative mg/dL (NEG) Urine Ketones (Stick) Negative mg/dL (NEG) Urine Blood Negative (NEG) Urine Nitrite Negative (NEG) Urine Bilirubin Negative (NEG) Urine Urobilinogen Dipstick 0.2 mg/dL (0.2 mg/dL) Urine Leukocyte Esterase Small (NEG) Urine RBC Occ /HPF (0-2) Urine WBC 1-4 /HPF (0-4) Urine Squamous Epithelial Cells Occ /LPF Urine Transitional Epithelial Cells Occ /LPF Urine Bacteria Few /HPF (0-FEW) Urine Hyaline Casts Few /HPF Urine Granular Casts Occasional /HPF Urine Waxy Casts Occasional /HPF Urine Mucus Slight /LPF Urine Opiates Screen Pos (NEG) Urine Methadone Screen Neg (NEG) Urine Barbiturates Neg (NEG) Urine Phencyclidine Screen Neg (NEG) Urine Amphetamine/Methamphetamine Neg (NEG) Urine Benzodiazepines Screen Neg (NEG) Urine Cocaine Screen Neg (NEG) Urine Cannabinoids Screen Neg (NEG) Urine Ethyl Alcohol Neg (NEG) Glucose (Fingerstick) 151 mg/dL (70-99) Lactic Acid Level 2.9 mmol/L (0.4-2.0) Nasal Screen MRSA (PCR) Negative (Negative) Test 02/15/17 01:15 02/15/17 08:16 02/15/17 09:00 02/15/17 13:01 Lactic Acid Level 2.9 mmol/L (0.4-2.0) Glucose (Fingerstick) 112 mg/dL (70-99) 114 mg/dL (70-99) White Blood Count 67.0 x10^3/uL (4.0-11.0) Red Blood Count 3.17 x10^6/uL (3.50-5.40) Hemoglobin 8.7 g/dL (12.0-15.5) Hematocrit 26.9 % (36.0-47.0) Mean Corpuscular Volume 85 fL (79-100) Mean Corpuscular Hemoglobin 27 pg (25-35) Mean Corpuscular Hemoglobin Concent 32 g/dL (31-37) Red Cell Distribution Width 20.6 % (11.5-14.5) Platelet Count 841 x10^3/uL (140-400) Neutrophils (%) (Auto) 95 % (31-73) Lymphocytes (%) (Auto) 2 % (24-48) Monocytes (%) (Auto) 2 % (0-9) Eosinophils (%) (Auto) 1 % (0-3) Basophils (%) (Auto) 1 % (0-3) Neutrophils # (Auto) 63.8 x10^3uL (1.8-7.7) Lymphocytes # (Auto) 1.2 x10^3/uL (1.0-4.8) Monocytes # (Auto) 1.4 x10^3/uL (0.0-1.1) Eosinophils # (Auto) 0.3 x10^3/uL (0.0-0.7) Basophils # (Auto) 0.3 x10^3/uL (0.0-0.2) Sodium Level 139 mmol/L (136-145) Potassium Level 4.8 mmol/L (3.5-5.1) Chloride Level 101 mmol/L (98-107) Carbon Dioxide Level 25 mmol/L (21-32) Anion Gap 13 (6-14) Blood Urea Nitrogen 65 mg/dL (7-20) Creatinine 6.6 mg/dL (0.6-1.0) Estimated GFR (Cockcroft-Gault) 7.5 Glucose Level 114 mg/dL (70-99) Calcium Level 7.3 mg/dL (8.5-10.1) Phosphorus Level 4.7 mg/dL (2.6-4.7) Albumin 2.5 g/dL (3.4-5.0) Lipase 146 U/L (73-393) Procalcitonin 1.98 ng/mL (0.00-0.10) Thyroid Stimulating Hormone (TSH) 6.503 uIU/mL (0.358-3.74) Test 02/15/17 16:58 02/16/17 05:10 02/16/17 05:18 Glucose (Fingerstick) 141 mg/dL (70-99) Lactic Acid Level 2.7 mmol/L (0.4-2.0) White Blood Count 80.2 x10^3/uL (4.0-11.0) Red Blood Count 1.93 x10^6/uL (3.50-5.40) Hemoglobin 5.4 g/dL (12.0-15.5) Hematocrit 16.7 % (36.0-47.0) Mean Corpuscular Volume 86 fL (79-100) Mean Corpuscular Hemoglobin 28 pg (25-35) Mean Corpuscular Hemoglobin Concent 32 g/dL (31-37) Red Cell Distribution Width 21.6 % (11.5-14.5) Platelet Count 704 x10^3/uL (140-400) Neutrophils (%) (Auto) 96 % (31-73) Lymphocytes (%) (Auto) 2 % (24-48) Monocytes (%) (Auto) 1 % (0-9) Eosinophils (%) (Auto) 0 % (0-3) Basophils (%) (Auto) 1 % (0-3) Neutrophils # (Auto) 76.7 x10^3uL (1.8-7.7) Lymphocytes # (Auto) 1.7 x10^3/uL (1.0-4.8) Monocytes # (Auto) 0.9 x10^3/uL (0.0-1.1) Eosinophils # (Auto) 0.2 x10^3/uL (0.0-0.7) Basophils # (Auto) 0.7 x10^3/uL (0.0-0.2) Prothrombin Time 18.3 SEC (11.7-14.0) Prothromb Time International Ratio 1.6 (0.8-1.1) Fibrinogen 185 mg/dL (200-440) Sodium Level 138 mmol/L (136-145) Potassium Level 4.5 mmol/L (3.5-5.1) Chloride Level 101 mmol/L (98-107) Carbon Dioxide Level 26 mmol/L (21-32) Anion Gap 11 (6-14) Blood Urea Nitrogen 40 mg/dL (7-20) Creatinine 4.5 mg/dL (0.6-1.0) Estimated GFR (Cockcroft-Gault) 11.7 BUN/Creatinine Ratio 9 (6-20) Glucose Level 135 mg/dL (70-99) Calcium Level 7.5 mg/dL (8.5-10.1) Total Bilirubin 0.7 mg/dL (0.2-1.0) Aspartate Amino Transf (AST/SGOT) 63 U/L (15-37) Alanine Aminotransferase (ALT/SGPT) 18 U/L (14-59) Alkaline Phosphatase 124 U/L (46-116) Total Protein 5.1 g/dL (6.4-8.2) Albumin 2.4 g/dL (3.4-5.0) Albumin/Globulin Ratio 0.9 (1.0-1.7) Free Thyroxine 1.37 ng/dL (0.76-1.46) Free Triiodothyronine (T3) pg/mL 0.66 pg/mL (2.18-3.98) Random Vancomycin Level 14.4 mcg/mL Laboratory Tests Test 02/15/17 16:58 02/16/17 05:10 02/16/17 05:18 Glucose (Fingerstick) 141 mg/dL (70-99) Lactic Acid Level 2.7 mmol/L (0.4-2.0) White Blood Count 80.2 x10^3/uL (4.0-11.0) Red Blood Count 1.93 x10^6/uL (3.50-5.40) Hemoglobin 5.4 g/dL (12.0-15.5) Hematocrit 16.7 % (36.0-47.0) Mean Corpuscular Volume 86 fL (79-100) Mean Corpuscular Hemoglobin 28 pg (25-35) Mean Corpuscular Hemoglobin Concent 32 g/dL (31-37) Red Cell Distribution Width 21.6 % (11.5-14.5) Platelet Count 704 x10^3/uL (140-400) Neutrophils (%) (Auto) 96 % (31-73) Lymphocytes (%) (Auto) 2 % (24-48) Monocytes (%) (Auto) 1 % (0-9) Eosinophils (%) (Auto) 0 % (0-3) Basophils (%) (Auto) 1 % (0-3) Neutrophils # (Auto) 76.7 x10^3uL (1.8-7.7) Lymphocytes # (Auto) 1.7 x10^3/uL (1.0-4.8) Monocytes # (Auto) 0.9 x10^3/uL (0.0-1.1) Eosinophils # (Auto) 0.2 x10^3/uL (0.0-0.7) Basophils # (Auto) 0.7 x10^3/uL (0.0-0.2) Prothrombin Time 18.3 SEC (11.7-14.0) Prothromb Time International Ratio 1.6 (0.8-1.1) Fibrinogen 185 mg/dL (200-440) Sodium Level 138 mmol/L (136-145) Potassium Level 4.5 mmol/L (3.5-5.1) Chloride Level 101 mmol/L (98-107) Carbon Dioxide Level 26 mmol/L (21-32) Anion Gap 11 (6-14) Blood Urea Nitrogen 40 mg/dL (7-20) Creatinine 4.5 mg/dL (0.6-1.0) Estimated GFR (Cockcroft-Gault) 11.7 BUN/Creatinine Ratio 9 (6-20) Glucose Level 135 mg/dL (70-99) Calcium Level 7.5 mg/dL (8.5-10.1) Total Bilirubin 0.7 mg/dL (0.2-1.0) Aspartate Amino Transf (AST/SGOT) 63 U/L (15-37) Alanine Aminotransferase (ALT/SGPT) 18 U/L (14-59) Alkaline Phosphatase 124 U/L (46-116) Total Protein 5.1 g/dL (6.4-8.2) Albumin 2.4 g/dL (3.4-5.0) Albumin/Globulin Ratio 0.9 (1.0-1.7) Free Thyroxine 1.37 ng/dL (0.76-1.46) Free Triiodothyronine (T3) pg/mL 0.66 pg/mL (2.18-3.98) Random Vancomycin Level 14.4 mcg/mL Problem List Problems Medical Problems: (1) Anemia Status: Acute (2) Coagulopathy Status: Acute (3) Congestive heart failure Status: Acute (4) End stage renal disease Status: Acute (5) Hypoglycemia Status: Acute (6) Hypotension Status: Acute (7) Myelodysplastic syndrome Status: Acute Assessment/Plan rectus sheath hematoma Hgb drop today 5.4, received transfusion not aware of pd cath removal--will have Dr Westbrook review Problems: FREDY WESTBROOK MD 02/16/17 2685: SURGICAL PROGRESS NOTE Assessment/Plan Pt seen and examined. Agree with Ms. Middleton's note Pt alert but decreased mental status abd soft, hard area near PD cath c/w hematoma pt with multiple issues and concerning prognosis would not recommend any surgical intervention, secondary to risk of increased bleeding if continued issues, consider IR embolization, but may be unsuccessful, favor supportive care first Problems: SHUBHAM MIDDLETON APRN Feb 16, 2017 13:48 FREDY WESTBROOK MD Feb 16, 2017 14:25
--- NOTE | 2017-02-16 14:35 | PDOC ---
PULMONARY PROGRESS NOTES Subjective PT WITH NO INCREASE SOA CONTINUE PAIN IN ABD Vitals Vital Signs Date Time Temp Pulse Resp B/P (MAP) Pulse Ox O2 Delivery O2 Flow Rate FiO2 02/16/17 12:35 100 Room Air 02/16/17 06:00 103 15 99/48 (65) 02/16/17 04:00 97.3 97.3 ROS: No Nausea, No Chest Pain, No Increase Cough General: Alert Lungs: Crackles Cardiovascular: S1, S2 Abdomen: Soft Neuro Exam: Alert Extremities: No Edema Skin: Warm Labs Laboratory Tests Test 02/14/17 21:00 02/14/17 21:04 02/14/17 21:18 02/14/17 21:45 White Blood Count 67.7 x10^3/uL (4.0-11.0) Red Blood Count 1.56 x10^6/uL (3.50-5.40) Hemoglobin 4.2 g/dL (12.0-15.5) Hematocrit 14.7 % (36.0-47.0) Mean Corpuscular Volume 94 fL (79-100) Mean Corpuscular Hemoglobin 27 pg (25-35) Mean Corpuscular Hemoglobin Concent 29 g/dL (31-37) Red Cell Distribution Width 27.8 % (11.5-14.5) Platelet Count 864 x10^3/uL (140-400) Neutrophils (%) (Auto) 93 % (31-73) Lymphocytes (%) (Auto) 3 % (24-48) Monocytes (%) (Auto) 3 % (0-9) Eosinophils (%) (Auto) 1 % (0-3) Basophils (%) (Auto) 1 % (0-3) Neutrophils # (Auto) 62.7 x10^3uL (1.8-7.7) Lymphocytes # (Auto) 2.0 x10^3/uL (1.0-4.8) Monocytes # (Auto) 1.7 x10^3/uL (0.0-1.1) Eosinophils # (Auto) 0.5 x10^3/uL (0.0-0.7) Basophils # (Auto) 0.8 x10^3/uL (0.0-0.2) Segmented Neutrophils % 76 % (35-66) Band Neutrophils % 19 % (0-9) Lymphocytes % 2 % (24-48) Eosinophils % 1 % (0-5) Metamyelocytes % 1 % (0-0) Myelocytes % 1 % (0-0) Toxic Granulation Slight Platelet Estimate Increased (ADEQUATE) Giant Platelets Few Polychromasia Mod Hypochromasia Mod Poikilocytosis Mod Anisocytosis Marked Spherocytes Few Schistocytes Few Prothrombin Time 19.7 SEC (11.7-14.0) Prothromb Time International Ratio 1.8 (0.8-1.1) Activated Partial Thromboplast Time 45 SEC (24-38) Sodium Level 139 mmol/L (136-145) Potassium Level 4.2 mmol/L (3.5-5.1) Chloride Level 101 mmol/L (98-107) Carbon Dioxide Level 29 mmol/L (21-32) Anion Gap 9 (6-14) Blood Urea Nitrogen 69 mg/dL (7-20) Creatinine 7.2 mg/dL (0.6-1.0) Estimated GFR (Cockcroft-Gault) 5.6 BUN/Creatinine Ratio 10 (6-20) Glucose Level 79 mg/dL (70-99) Lactic Acid Level 2.7 mmol/L (0.4-2.0) Calcium Level 7.6 mg/dL (8.5-10.1) Magnesium Level 2.0 mg/dL (1.8-2.4) Total Bilirubin 0.3 mg/dL (0.2-1.0) Aspartate Amino Transf (AST/SGOT) 70 U/L (15-37) Alanine Aminotransferase (ALT/SGPT) 11 U/L (14-59) Alkaline Phosphatase 125 U/L (46-116) Total Protein 4.7 g/dL (6.4-8.2) Albumin 2.1 g/dL (3.4-5.0) Albumin/Globulin Ratio 0.8 (1.0-1.7) Glucose (Fingerstick) 95 mg/dL (70-99) 67 mg/dL (70-99) 140 mg/dL (70-99) Test 02/14/17 21:50 02/14/17 21:57 02/14/17 22:10 02/14/17 22:45 Hepatitis B Surface Antigen Negative (Negative) Hepatitis B Surface Antibody Non reactive (.) Stool Occult Blood Positive (NEG) Glucose (Fingerstick) 108 mg/dL (70-99) 73 mg/dL (70-99) Test 02/14/17 23:05 02/14/17 23:30 02/14/17 23:45 02/15/17 00:45 Urine Collection Type U cath Urine Color Yellow Urine Clarity Cloudy Urine pH 5.0 Urine Specific [place] 1.020 Urine Protein >=300 mg/dL (NEG-TRACE) Urine Glucose (UA) Negative mg/dL (NEG) Urine Ketones (Stick) Negative mg/dL (NEG) Urine Blood Negative (NEG) Urine Nitrite Negative (NEG) Urine Bilirubin Negative (NEG) Urine Urobilinogen Dipstick 0.2 mg/dL (0.2 mg/dL) Urine Leukocyte Esterase Small (NEG) Urine RBC Occ /HPF (0-2) Urine WBC 1-4 /HPF (0-4) Urine Squamous Epithelial Cells Occ /LPF Urine Transitional Epithelial Cells Occ /LPF Urine Bacteria Few /HPF (0-FEW) Urine Hyaline Casts Few /HPF Urine Granular Casts Occasional /HPF Urine Waxy Casts Occasional /HPF Urine Mucus Slight /LPF Urine Opiates Screen Pos (NEG) Urine Methadone Screen Neg (NEG) Urine Barbiturates Neg (NEG) Urine Phencyclidine Screen Neg (NEG) Urine Amphetamine/Methamphetamine Neg (NEG) Urine Benzodiazepines Screen Neg (NEG) Urine Cocaine Screen Neg (NEG) Urine Cannabinoids Screen Neg (NEG) Urine Ethyl Alcohol Neg (NEG) Glucose (Fingerstick) 151 mg/dL (70-99) Lactic Acid Level 2.9 mmol/L (0.4-2.0) Nasal Screen MRSA (PCR) Negative (Negative) Test 02/15/17 01:15 02/15/17 08:16 02/15/17 09:00 02/15/17 13:01 Lactic Acid Level 2.9 mmol/L (0.4-2.0) Glucose (Fingerstick) 112 mg/dL (70-99) 114 mg/dL (70-99) White Blood Count 67.0 x10^3/uL (4.0-11.0) Red Blood Count 3.17 x10^6/uL (3.50-5.40) Hemoglobin 8.7 g/dL (12.0-15.5) Hematocrit 26.9 % (36.0-47.0) Mean Corpuscular Volume 85 fL (79-100) Mean Corpuscular Hemoglobin 27 pg (25-35) Mean Corpuscular Hemoglobin Concent 32 g/dL (31-37) Red Cell Distribution Width 20.6 % (11.5-14.5) Platelet Count 841 x10^3/uL (140-400) Neutrophils (%) (Auto) 95 % (31-73) Lymphocytes (%) (Auto) 2 % (24-48) Monocytes (%) (Auto) 2 % (0-9) Eosinophils (%) (Auto) 1 % (0-3) Basophils (%) (Auto) 1 % (0-3) Neutrophils # (Auto) 63.8 x10^3uL (1.8-7.7) Lymphocytes # (Auto) 1.2 x10^3/uL (1.0-4.8) Monocytes # (Auto) 1.4 x10^3/uL (0.0-1.1) Eosinophils # (Auto) 0.3 x10^3/uL (0.0-0.7) Basophils # (Auto) 0.3 x10^3/uL (0.0-0.2) Sodium Level 139 mmol/L (136-145) Potassium Level 4.8 mmol/L (3.5-5.1) Chloride Level 101 mmol/L (98-107) Carbon Dioxide Level 25 mmol/L (21-32) Anion Gap 13 (6-14) Blood Urea Nitrogen 65 mg/dL (7-20) Creatinine 6.6 mg/dL (0.6-1.0) Estimated GFR (Cockcroft-Gault) 7.5 Glucose Level 114 mg/dL (70-99) Calcium Level 7.3 mg/dL (8.5-10.1) Phosphorus Level 4.7 mg/dL (2.6-4.7) Albumin 2.5 g/dL (3.4-5.0) Lipase 146 U/L (73-393) Procalcitonin 1.98 ng/mL (0.00-0.10) Thyroid Stimulating Hormone (TSH) 6.503 uIU/mL (0.358-3.74) Test 02/15/17 16:58 02/16/17 05:10 02/16/17 05:18 Glucose (Fingerstick) 141 mg/dL (70-99) Lactic Acid Level 2.7 mmol/L (0.4-2.0) White Blood Count 80.2 x10^3/uL (4.0-11.0) Red Blood Count 1.93 x10^6/uL (3.50-5.40) Hemoglobin 5.4 g/dL (12.0-15.5) Hematocrit 16.7 % (36.0-47.0) Mean Corpuscular Volume 86 fL (79-100) Mean Corpuscular Hemoglobin 28 pg (25-35) Mean Corpuscular Hemoglobin Concent 32 g/dL (31-37) Red Cell Distribution Width 21.6 % (11.5-14.5) Platelet Count 704 x10^3/uL (140-400) Neutrophils (%) (Auto) 96 % (31-73) Lymphocytes (%) (Auto) 2 % (24-48) Monocytes (%) (Auto) 1 % (0-9) Eosinophils (%) (Auto) 0 % (0-3) Basophils (%) (Auto) 1 % (0-3) Neutrophils # (Auto) 76.7 x10^3uL (1.8-7.7) Lymphocytes # (Auto) 1.7 x10^3/uL (1.0-4.8) Monocytes # (Auto) 0.9 x10^3/uL (0.0-1.1) Eosinophils # (Auto) 0.2 x10^3/uL (0.0-0.7) Basophils # (Auto) 0.7 x10^3/uL (0.0-0.2) Prothrombin Time 18.3 SEC (11.7-14.0) Prothromb Time International Ratio 1.6 (0.8-1.1) Fibrinogen 185 mg/dL (200-440) Sodium Level 138 mmol/L (136-145) Potassium Level 4.5 mmol/L (3.5-5.1) Chloride Level 101 mmol/L (98-107) Carbon Dioxide Level 26 mmol/L (21-32) Anion Gap 11 (6-14) Blood Urea Nitrogen 40 mg/dL (7-20) Creatinine 4.5 mg/dL (0.6-1.0) Estimated GFR (Cockcroft-Gault) 11.7 BUN/Creatinine Ratio 9 (6-20) Glucose Level 135 mg/dL (70-99) Calcium Level 7.5 mg/dL (8.5-10.1) Total Bilirubin 0.7 mg/dL (0.2-1.0) Aspartate Amino Transf (AST/SGOT) 63 U/L (15-37) Alanine Aminotransferase (ALT/SGPT) 18 U/L (14-59) Alkaline Phosphatase 124 U/L (46-116) Total Protein 5.1 g/dL (6.4-8.2) Albumin 2.4 g/dL (3.4-5.0) Albumin/Globulin Ratio 0.9 (1.0-1.7) Free Thyroxine 1.37 ng/dL (0.76-1.46) Free Triiodothyronine (T3) pg/mL 0.66 pg/mL (2.18-3.98) Random Vancomycin Level 14.4 mcg/mL Laboratory Tests Test 02/15/17 16:58 02/16/17 05:10 02/16/17 05:18 Glucose (Fingerstick) 141 mg/dL (70-99) Lactic Acid Level 2.7 mmol/L (0.4-2.0) White Blood Count 80.2 x10^3/uL (4.0-11.0) Red Blood Count 1.93 x10^6/uL (3.50-5.40) Hemoglobin 5.4 g/dL (12.0-15.5) Hematocrit 16.7 % (36.0-47.0) Mean Corpuscular Volume 86 fL (79-100) Mean Corpuscular Hemoglobin 28 pg (25-35) Mean Corpuscular Hemoglobin Concent 32 g/dL (31-37) Red Cell Distribution Width 21.6 % (11.5-14.5) Platelet Count 704 x10^3/uL (140-400) Neutrophils (%) (Auto) 96 % (31-73) Lymphocytes (%) (Auto) 2 % (24-48) Monocytes (%) (Auto) 1 % (0-9) Eosinophils (%) (Auto) 0 % (0-3) Basophils (%) (Auto) 1 % (0-3) Neutrophils # (Auto) 76.7 x10^3uL (1.8-7.7) Lymphocytes # (Auto) 1.7 x10^3/uL (1.0-4.8) Monocytes # (Auto) 0.9 x10^3/uL (0.0-1.1) Eosinophils # (Auto) 0.2 x10^3/uL (0.0-0.7) Basophils # (Auto) 0.7 x10^3/uL (0.0-0.2) Prothrombin Time 18.3 SEC (11.7-14.0) Prothromb Time International Ratio 1.6 (0.8-1.1) Fibrinogen 185 mg/dL (200-440) Sodium Level 138 mmol/L (136-145) Potassium Level 4.5 mmol/L (3.5-5.1) Chloride Level 101 mmol/L (98-107) Carbon Dioxide Level 26 mmol/L (21-32) Anion Gap 11 (6-14) Blood Urea Nitrogen 40 mg/dL (7-20) Creatinine 4.5 mg/dL (0.6-1.0) Estimated GFR (Cockcroft-Gault) 11.7 BUN/Creatinine Ratio 9 (6-20) Glucose Level 135 mg/dL (70-99) Calcium Level 7.5 mg/dL (8.5-10.1) Total Bilirubin 0.7 mg/dL (0.2-1.0) Aspartate Amino Transf (AST/SGOT) 63 U/L (15-37) Alanine Aminotransferase (ALT/SGPT) 18 U/L (14-59) Alkaline Phosphatase 124 U/L (46-116) Total Protein 5.1 g/dL (6.4-8.2) Albumin 2.4 g/dL (3.4-5.0) Albumin/Globulin Ratio 0.9 (1.0-1.7) Free Thyroxine 1.37 ng/dL (0.76-1.46) Free Triiodothyronine (T3) pg/mL 0.66 pg/mL (2.18-3.98) Random Vancomycin Level 14.4 mcg/mL Medications Active Scripts Medications Dose Route/Sig Max Daily Dose Days Date Category Lantus Solostar (Insulin Glargine,Hum.rec.anlog) 100 Unit/1 Ml Insuln.pen 22 Unit SQ QHS 02/15/17 Reported Droxia (Hydroxyurea) 200 Mg Capsule 200 Mg PO DAILY 02/15/17 Reported Feosol (Ferrous Sulfate) 325 Mg Tablet 325 Mg PO DAILY 02/15/17 Reported Coreg (Carvedilol) 12.5 Mg Tablet 1 Tab PO BID 02/15/17 Reported Bumetanide 2 Mg Tablet 2 Tab PO BID 02/15/17 Reported Aspir 81 (Aspirin) 81 Mg Tablet.dr 1 Tab PO DAILY 02/15/17 Reported Allopurinol 300 Mg Tablet 1 Tab PO DAILY 02/15/17 Reported Advair 250-50 Diskus (Fluticasone/Salmeterol) 1 Each Disk.w.dev 1 Puff IH Q12HR 02/15/17 Reported Zetia (Ezetimibe) 10 Mg Tablet 0.5 Tab PO DAILY 02/15/17 Reported Zemplar (Paricalcitol) 1 Mcg Capsule 1 Cap PO DAILY 02/15/17 Reported Sodium Bicarbonate 650 Mg Tablet 850 Mg PO BID 02/15/17 Reported Sensipar (Cinacalcet Hcl) 30 Mg Tablet 30 Mg PO QODAY 02/15/17 Reported Renvela (Sevelamer Carbonate) 800 Mg Tablet 2 Tab PO TID 02/15/17 Reported Proair Hfa Inhaler (Albuterol Sulfate) 8.5 Gm Hfa.aer.ad 2 Puff INH PRN Q4HRS PRN 02/15/17 Reported Omeprazole 40 Mg Capsule.dr 1 Cap PO DAILY 02/15/17 Reported Percocet 5-325 Mg Tablet (Oxycodone/Acetaminophen) 1 Each Tablet 1-2 Tab PO PRN Q6HRS PRN 02/15/17 Reported Novolog Flexpen (Insulin Aspart) 100 Unit/1 Ml Insuln.pen 15 Unit SQ DAILY 02/15/17 Reported Novolog Flexpen (Insulin Aspart) 100 Unit/1 Ml Insuln.pen 12 Unit SQ BIDACBL 02/15/17 Reported Norvasc (Amlodipine Besylate) 10 Mg Tablet 10 Mg PO DAILY 02/15/17 Reported Miralax (Polyethylene Glycol 3350) 17 Gm Powd.pack 1 Packet PO DAILY 02/15/17 Reported Lipitor (Atorvastatin Calcium) 40 Mg Tablet 1 Tab PO DAILY 02/15/17 Reported Lidocaine 1 Each Adh..patch 1 Each TP DAILY 02/15/17 Reported Impression . 1. Abnormal CT of the abdomen revealing some basilar opacities, suspect mostly atelectasis. 2. Asthma. 3. Sepsis present upon admission. 4. Hypothermia. 5. Leukocytosis. 6. Lactic acidosis. 7. Chronic kidney disease, status post recent catheter for dialysis. 8. Acute toxic metabolic encephalopathy. 9. Diabetes. 10. Polycythemia. 11. Intraabdominal hematoma. Plan . RESP STATUS IS COMPENSATED NEEDS NUTRITIONAL SUPPORT 1. Pulmonary status appears to be compensated. Continue p.r.n. albuterol. 2. Antibiotics for sepsis per ID. 3. Follow Nephrology input. 4. Follow hem input 5. Intraabdominal hematoma. 6. Continue current support, we will follow along and make any further recommendations depending on the patient's clinical response. DENISE MCKINNON MD Feb 16, 2017 14:35
--- NOTE | 2017-02-16 14:36 | RAD ---
Examination: Single frontal view of the abdomen History: History of Dobbhoff placement Comparison: None available. Findings: A feeding tube is identified in the left upper quadrant of the abdomen with the tip projecting in the region of the left upper quadrant of the abdomen likely within the stomach. Moderate amount of stool identified throughout the colon Impression: 1. Feeding tube projects in the left upper quadrant of the abdomen likely within the stomach. 2. Moderate diffuse amount of stool identified throughout the colon.
[2017-02-16 15:54] LABS: BASO # 0.6 x10^3/uL (0.0-0.2); BASO % 1 % (0-3); EOS % 0 % (0-3); HEMATOCRIT 27.1 % (36.0-47.0); HEMOGLOBIN 8.6 g/dL (12.0-15.5); LYMPH # 1.1 x10^3/uL (1.0-4.8); LYMPH % 1 % (24-48); MEAN CORPUSCULAR HEMOGLOBIN 28 pg (25-35); MEAN CORPUSCULAR HGB CONC 32 g/dL (31-37); MEAN CORPUSCULAR VOLUME 88 fL (79-100); MONO % 1 % (0-9); NEUT % 97 % (31-73); PLATELET COUNT 518 x10^3/uL (140-400); RED BLOOD COUNT 3.07 x10^6/uL (3.50-5.40); RED CELL DISTRIBUTION WIDTH 17.2 % (11.5-14.5)
[2017-02-16 16:00] LABS: INR 1.4 (0.8-1.1); PROTHROMBIN TIME PATIENT 16.7 SEC (11.7-14.0)
[2017-02-16] MEDS ORDERED: VANCOMYCIN 500 MG in IV NORMAL SALINE 100ML 100 ML IV ONE (16:00)
[2017-02-16 16:13] LABS: WHITE BLOOD COUNT 81.3 x10^3/uL (4.0-11.0)
[2017-02-16] MEDS: fentaNYL PF VIAL 100 MCG/2 ML VIAL IV PRN ×3 (16:47→22:48)
[2017-02-16] MEDS: IV NORMAL SALINE 1000ML BAG 1,000 ML IV SCH (17:42)
[2017-02-17] VITALS (28 sets, daily range): BP systolic 89–143; BP diastolic 43–83
[2017-02-17] MEDS: PIPERACILLIN/TAZOBACTAM 2.25 GM in IV NORMAL SALINE 50ML 50 ML IV SCH ×5 (00:46→23:49)
[2017-02-17] MEDS: MORPHINE SULFATE 4 MG/ML DISP.SYRIN. IV PRN (00:47)
[2017-02-17] MEDS: VANCOMYCIN PER PHARMACY MC PRN (07:34)
[2017-02-17 07:42] LABS: CALCIUM 7.7 mg/dL (8.5-10.1); CREATININE 3.5 mg/dL (0.6-1.0); GFR 15.6; POTASSIUM 4.9 mmol/L (3.5-5.1)
[2017-02-17 07:54] LABS: HEMATOCRIT 22.3 % (36.0-47.0); MEAN CORPUSCULAR HEMOGLOBIN 28 pg (25-35); MEAN CORPUSCULAR HGB CONC 31 g/dL (31-37); MEAN CORPUSCULAR VOLUME 89 fL (79-100); PLATELET COUNT 574 x10^3/uL (140-400); RED BLOOD COUNT 2.52 x10^6/uL (3.50-5.40); RED CELL DISTRIBUTION WIDTH 17.8 % (11.5-14.5)
[2017-02-17 08:05] LABS: WHITE BLOOD COUNT 107.1 x10^3/uL (4.0-11.0)
--- NOTE | 2017-02-17 08:15 | PDOC ---
Infectious Disease Note Subjective Subjective More comfortable. No Flatus or BM ROS ROS GEN: Denies fevers, chills, sweats HEENT: Denies blurred vision, sore throat CV: Denies chest pain RESP: Denies shortness of air, cough NEURO: Denies confusion, dizziness No rash Vital Sign Vital Signs Vital Signs Date Time Temp Pulse Resp B/P (MAP) Pulse Ox O2 Delivery O2 Flow Rate FiO2 02/17/17 06:00 114 8 119/61 (80) 98 Room Air 02/17/17 04:00 2.0 02/17/17 03:00 97.7 97.7 Physical Exam PHYSICAL EXAM GENERAL: NAD, Alert and looks better Appears comfortable HEENT: PERRL, OC/OP - dry NECK: Supple, no JVD, no LN LUNGS: Clear HEART: S1S2, no gallop, no murmur ABD: Distended, tender. PD cath Leary EXT: Trace edema, no cyanosis [employer]: Alert, oriented , no focal neurologic deficit SKIN: No rash IV: Left IJ HD/central. Peripherals - clean Labs Lab Laboratory Tests Test 02/16/17 13:45 02/17/17 07:25 White Blood Count 81.3 x10^3/uL (4.0-11.0) 107.1 x10^3/uL (4.0-11.0) Red Blood Count 3.07 x10^6/uL (3.50-5.40) 2.52 x10^6/uL (3.50-5.40) Hemoglobin 8.6 g/dL (12.0-15.5) 7.0 g/dL (12.0-15.5) Hematocrit 27.1 % (36.0-47.0) 22.3 % (36.0-47.0) Mean Corpuscular Volume 88 fL (79-100) 89 fL (79-100) Mean Corpuscular Hemoglobin 28 pg (25-35) 28 pg (25-35) Mean Corpuscular Hemoglobin Concent 32 g/dL (31-37) 31 g/dL (31-37) Red Cell Distribution Width 17.2 % (11.5-14.5) 17.8 % (11.5-14.5) Platelet Count 518 x10^3/uL (140-400) 574 x10^3/uL (140-400) Neutrophils (%) (Auto) 97 % (31-73) Lymphocytes (%) (Auto) 1 % (24-48) Monocytes (%) (Auto) 1 % (0-9) Eosinophils (%) (Auto) 0 % (0-3) Basophils (%) (Auto) 1 % (0-3) Neutrophils # (Auto) 78.9 x10^3uL (1.8-7.7) Lymphocytes # (Auto) 1.1 x10^3/uL (1.0-4.8) Monocytes # (Auto) 0.6 x10^3/uL (0.0-1.1) Eosinophils # (Auto) 0.1 x10^3/uL (0.0-0.7) Basophils # (Auto) 0.6 x10^3/uL (0.0-0.2) Prothrombin Time 16.7 SEC (11.7-14.0) Prothromb Time International Ratio 1.4 (0.8-1.1) Fibrinogen 203 mg/dL (200-440) Sodium Level 136 mmol/L (136-145) Potassium Level 4.9 mmol/L (3.5-5.1) Chloride Level 99 mmol/L (98-107) Carbon Dioxide Level 23 mmol/L (21-32) Anion Gap 14 (6-14) Blood Urea Nitrogen 31 mg/dL (7-20) Creatinine 3.5 mg/dL (0.6-1.0) Estimated GFR (Cockcroft-Gault) 15.6 Glucose Level 198 mg/dL (70-99) Calcium Level 7.7 mg/dL (8.5-10.1) Objective Assessment Sepsis - POA (hypothermia/leukocytosis/lactic acidosis). Procalcitonin mild elevation 1.98 02/15. cults neg Leukocytosis - in part reactive to bleed and transfusions/myelofibrosis. Better today. Cults pending Elevated TSH - ? euthyroid. T4 ok Abd hematoma - Possibly infected - cult pending. Hgb down again this am CKD - needing PD but not yet started (states PD cath placed 02/09). 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
[2017-02-17] MEDS ORDERED: IV NORMAL SALINE 1000ML BAG 1,000 ML IV PRN ×2 (09:24)
[2017-02-17] MEDS ORDERED: 0.9 % SODIUM CHLORIDE 10 ML DISP.SYRIN. IV PRN ×2 (09:30)
[2017-02-17] MEDS ORDERED: DIALYSIS PATIENT. MC PRN (09:30)
[2017-02-17] MEDS ORDERED: ALBUMIN HUMAN 25% 100 ML IV STA (09:35)
--- NOTE | 2017-02-17 10:01 | PDOC ---
Renal-Progress Notes Subjective Notes Notes STILL HAVING SOME ABD PAIN History of Present Illness Hx of present illness STABLE Vitals Vitals Vital Signs Date Time Temp Pulse Resp B/P (MAP) Pulse Ox O2 Delivery O2 Flow Rate FiO2 02/17/17 06:00 114 8 119/61 (80) 98 Room Air 02/17/17 04:00 2.0 02/17/17 03:00 97.7 97.7 Weight Weight [ ] Labs Labs Laboratory Tests Test 02/16/17 13:45 02/17/17 07:25 White Blood Count 81.3 x10^3/uL (4.0-11.0) 107.1 x10^3/uL (4.0-11.0) Red Blood Count 3.07 x10^6/uL (3.50-5.40) 2.52 x10^6/uL (3.50-5.40) Hemoglobin 8.6 g/dL (12.0-15.5) 7.0 g/dL (12.0-15.5) Hematocrit 27.1 % (36.0-47.0) 22.3 % (36.0-47.0) Mean Corpuscular Volume 88 fL (79-100) 89 fL (79-100) Mean Corpuscular Hemoglobin 28 pg (25-35) 28 pg (25-35) Mean Corpuscular Hemoglobin Concent 32 g/dL (31-37) 31 g/dL (31-37) Red Cell Distribution Width 17.2 % (11.5-14.5) 17.8 % (11.5-14.5) Platelet Count 518 x10^3/uL (140-400) 574 x10^3/uL (140-400) Neutrophils (%) (Auto) 97 % (31-73) Lymphocytes (%) (Auto) 1 % (24-48) Monocytes (%) (Auto) 1 % (0-9) Eosinophils (%) (Auto) 0 % (0-3) Basophils (%) (Auto) 1 % (0-3) Neutrophils # (Auto) 78.9 x10^3uL (1.8-7.7) Lymphocytes # (Auto) 1.1 x10^3/uL (1.0-4.8) Monocytes # (Auto) 0.6 x10^3/uL (0.0-1.1) Eosinophils # (Auto) 0.1 x10^3/uL (0.0-0.7) Basophils # (Auto) 0.6 x10^3/uL (0.0-0.2) Prothrombin Time 16.7 SEC (11.7-14.0) Prothromb Time International Ratio 1.4 (0.8-1.1) Fibrinogen 203 mg/dL (200-440) Sodium Level 136 mmol/L (136-145) Potassium Level 4.9 mmol/L (3.5-5.1) Chloride Level 99 mmol/L (98-107) Carbon Dioxide Level 23 mmol/L (21-32) Anion Gap 14 (6-14) Blood Urea Nitrogen 31 mg/dL (7-20) Creatinine 3.5 mg/dL (0.6-1.0) Estimated GFR (Cockcroft-Gault) 15.6 Glucose Level 198 mg/dL (70-99) Calcium Level 7.7 mg/dL (8.5-10.1) Micro Micro Microbiology 02/14/17 Blood Culture - Preliminary, Resulted NO GROWTH AFTER 2 DAYS 02/14/17 Gram Stain - Final, Complete 02/14/17 Urine Culture - Preliminary, Resulted 02/14/17 Urine Culture Result 1 (DENNY) - Preliminary, Resulted Review of Systems Constitutional: yes: malaise, weakness, alert, oriented Ears/Nose/Throat: Yes: no symptom reported Eyes: Yes: no symptom reported Pulmonary: Yes no symptom reported Cardiovascular: Yes no symptom reported Gastrointestional: Yes: abdominal pain Genitourinary: Yes: no symptom reported Psychiatric/Neurological: Yes: no symptom reported Endocrine: Yes: no symptom reported Hematologic/Lymphatic: Yes: no symptom reported Physical Exam General Appearance: no apparent distress Skin: warm Respiratory: decreased breath sounds Heart: S1S2, RRR Abdomen: soft, bowel sounds present Genitourinary: bladder flat Extremities: pulses present Neurology: alert, oriented Assessment Assessment IMP NEW ESRD UREMIA ANEMIA MYELOFIBROSIS COAGULOPATHY DM II ABD HEMATOMA S/P NEW PD CATH PLACEMENT AT [facility] S/P TEMP HD CATHETER LEUCOCYTOSIS SEPSIS ID FOLLOWING PLAN HEMODYNAMIC SUPPORT HEMATOLOGY FOLLOWING PR[facility] TODAY ANTIBIOTICS HD TODAY UF MINIMAL SURGERY FOLLOWING NO PLANS TO USE PD CATHETER HAVE UPDATED FAMILY TF STARTED REMAINS IN SERIOUS CONDITION F/U HAS HYPOTENSION UF DIFFICULT WILL USE ALBUMIN PRBC SHOULD HELP WELL BRENDON MEYERS MD Feb 17, 2017 10:01
--- NOTE | 2017-02-17 10:11 | PDOC ---
PROGRESS NOTES Subjective Subjective c/c - f/u of Secondary myelofibrosis ROS - abd pain stable Objective Objective Vital Signs Date Time Temp Pulse Resp B/P (MAP) Pulse Ox O2 Delivery O2 Flow Rate FiO2 02/17/17 06:00 114 8 119/61 (80) 98 Room Air 02/17/17 04:00 2.0 02/17/17 03:00 97.7 97.7 Physical Exam Heart: Normal S1, Normal S2 General: Alert, Oriented X3 Lungs: Clear to auscultation Neuro: Normal speech Psych/Mental Status: Mental status NL Assessment Assessment Problems Medical Problems: (1) Anemia Status: Acute (2) Coagulopathy Status: Acute (3) Congestive heart failure Status: Acute (4) End stage renal disease Status: Acute (5) Hypoglycemia Status: Acute (6) Hypotension Status: Acute (7) Myelodysplastic syndrome Status: Acute IMPRESSION AND PLAN: 1. 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 She was off hydroxyurea for almost 2-3 weeks prior to this admission because of renal failure. Her blood counts are significantly worse with worsening WBC and worsening platelets. Hence, I resumed hydroxyurea 02/15/17. Elevated platelet counts in patients with essential thrombocythemia can also increase the risk of bleeding. Hence, it is essential to decrease the platelet counts with the help of hydroxyurea. I will continue to monitor WBC, hemoglobin, and platelet counts closely while she is on hydroxyurea. 2. Hematoma, intraabdominal, due to recent peritoneal dialysis catheter placement. Her INR is elevated at 1.8. She already received 3 units of FFP and s/p 1 dose of vitamin K 02/15/17. Her creatinine is 6.6 with BUN of 65. Patients with uncontrolled myeloproliferative disorder and the patients with uremia can have deficiency of von Willebrand factor. s/p 20 mcg of DDAVP 02/15/17 for management of the underlying hematoma. 3. Sepsis. Appreciate ID consultation. 4. Leukocytosis due to myelofibrosis. Worse at 107 on 02/17/17. Continue hydrea. Plan peripheral smear review by pathology. 5. Thrombocytosis due to myelofibrosis. Plan hydroxyurea as described above. 6. Anemia - agree to transfuse 2 more units today as Hb only 7.0. 7. Coagulopathy - s/p FFP/Vit K/DDAVP I d/w RN Comment Review of Relevant I have reviewed the following items laure (where applicable) has been applied. Labs Laboratory Tests Test 02/15/17 13:01 02/15/17 16:58 02/16/17 05:10 02/16/17 05:18 Glucose (Fingerstick) 114 mg/dL (70-99) 141 mg/dL (70-99) Lactic Acid Level 2.7 mmol/L (0.4-2.0) White Blood Count 80.2 x10^3/uL (4.0-11.0) Red Blood Count 1.93 x10^6/uL (3.50-5.40) Hemoglobin 5.4 g/dL (12.0-15.5) Hematocrit 16.7 % (36.0-47.0) Mean Corpuscular Volume 86 fL (79-100) Mean Corpuscular Hemoglobin 28 pg (25-35) Mean Corpuscular Hemoglobin Concent 32 g/dL (31-37) Red Cell Distribution Width 21.6 % (11.5-14.5) Platelet Count 704 x10^3/uL (140-400) Neutrophils (%) (Auto) 96 % (31-73) Lymphocytes (%) (Auto) 2 % (24-48) Monocytes (%) (Auto) 1 % (0-9) Eosinophils (%) (Auto) 0 % (0-3) Basophils (%) (Auto) 1 % (0-3) Neutrophils # (Auto) 76.7 x10^3uL (1.8-7.7) Lymphocytes # (Auto) 1.7 x10^3/uL (1.0-4.8) Monocytes # (Auto) 0.9 x10^3/uL (0.0-1.1) Eosinophils # (Auto) 0.2 x10^3/uL (0.0-0.7) Basophils # (Auto) 0.7 x10^3/uL (0.0-0.2) Prothrombin Time 18.3 SEC (11.7-14.0) Prothromb Time International Ratio 1.6 (0.8-1.1) Fibrinogen 185 mg/dL (200-440) Sodium Level 138 mmol/L (136-145) Potassium Level 4.5 mmol/L (3.5-5.1) Chloride Level 101 mmol/L (98-107) Carbon Dioxide Level 26 mmol/L (21-32) Anion Gap 11 (6-14) Blood Urea Nitrogen 40 mg/dL (7-20) Creatinine 4.5 mg/dL (0.6-1.0) Estimated GFR (Cockcroft-Gault) 11.7 BUN/Creatinine Ratio 9 (6-20) Glucose Level 135 mg/dL (70-99) Calcium Level 7.5 mg/dL (8.5-10.1) Total Bilirubin 0.7 mg/dL (0.2-1.0) Aspartate Amino Transf (AST/SGOT) 63 U/L (15-37) Alanine Aminotransferase (ALT/SGPT) 18 U/L (14-59) Alkaline Phosphatase 124 U/L (46-116) Total Protein 5.1 g/dL (6.4-8.2) Albumin 2.4 g/dL (3.4-5.0) Albumin/Globulin Ratio 0.9 (1.0-1.7) Free Thyroxine 1.37 ng/dL (0.76-1.46) Free Triiodothyronine (T3) pg/mL 0.66 pg/mL (2.18-3.98) Random Vancomycin Level 14.4 mcg/mL Test 02/16/17 13:45 02/17/17 07:25 White Blood Count 81.3 x10^3/uL (4.0-11.0) 107.1 x10^3/uL (4.0-11.0) Red Blood Count 3.07 x10^6/uL (3.50-5.40) 2.52 x10^6/uL (3.50-5.40) Hemoglobin 8.6 g/dL (12.0-15.5) 7.0 g/dL (12.0-15.5) Hematocrit 27.1 % (36.0-47.0) 22.3 % (36.0-47.0) Mean Corpuscular Volume 88 fL (79-100) 89 fL (79-100) Mean Corpuscular Hemoglobin 28 pg (25-35) 28 pg (25-35) Mean Corpuscular Hemoglobin Concent 32 g/dL (31-37) 31 g/dL (31-37) Red Cell Distribution Width 17.2 % (11.5-14.5) 17.8 % (11.5-14.5) Platelet Count 518 x10^3/uL (140-400) 574 x10^3/uL (140-400) Neutrophils (%) (Auto) 97 % (31-73) Lymphocytes (%) (Auto) 1 % (24-48) Monocytes (%) (Auto) 1 % (0-9) Eosinophils (%) (Auto) 0 % (0-3) Basophils (%) (Auto) 1 % (0-3) Neutrophils # (Auto) 78.9 x10^3uL (1.8-7.7) Lymphocytes # (Auto) 1.1 x10^3/uL (1.0-4.8) Monocytes # (Auto) 0.6 x10^3/uL (0.0-1.1) Eosinophils # (Auto) 0.1 x10^3/uL (0.0-0.7) Basophils # (Auto) 0.6 x10^3/uL (0.0-0.2) Prothrombin Time 16.7 SEC (11.7-14.0) Prothromb Time International Ratio 1.4 (0.8-1.1) Fibrinogen 203 mg/dL (200-440) Sodium Level 136 mmol/L (136-145) Potassium Level 4.9 mmol/L (3.5-5.1) Chloride Level 99 mmol/L (98-107) Carbon Dioxide Level 23 mmol/L (21-32) Anion Gap 14 (6-14) Blood Urea Nitrogen 31 mg/dL (7-20) Creatinine 3.5 mg/dL (0.6-1.0) Estimated GFR (Cockcroft-Gault) 15.6 Glucose Level 198 mg/dL (70-99) Calcium Level 7.7 mg/dL (8.5-10.1) Laboratory Tests Test 02/16/17 13:45 02/17/17 07:25 White Blood Count 81.3 x10^3/uL (4.0-11.0) 107.1 x10^3/uL (4.0-11.0) Red Blood Count 3.07 x10^6/uL (3.50-5.40) 2.52 x10^6/uL (3.50-5.40) Hemoglobin 8.6 g/dL (12.0-15.5) 7.0 g/dL (12.0-15.5) Hematocrit 27.1 % (36.0-47.0) 22.3 % (36.0-47.0) Mean Corpuscular Volume 88 fL (79-100) 89 fL (79-100) Mean Corpuscular Hemoglobin 28 pg (25-35) 28 pg (25-35) Mean Corpuscular Hemoglobin Concent 32 g/dL (31-37) 31 g/dL (31-37) Red Cell Distribution Width 17.2 % (11.5-14.5) 17.8 % (11.5-14.5) Platelet Count 518 x10^3/uL (140-400) 574 x10^3/uL (140-400) Neutrophils (%) (Auto) 97 % (31-73) Lymphocytes (%) (Auto) 1 % (24-48) Monocytes (%) (Auto) 1 % (0-9) Eosinophils (%) (Auto) 0 % (0-3) Basophils (%) (Auto) 1 % (0-3) Neutrophils # (Auto) 78.9 x10^3uL (1.8-7.7) Lymphocytes # (Auto) 1.1 x10^3/uL (1.0-4.8) Monocytes # (Auto) 0.6 x10^3/uL (0.0-1.1) Eosinophils # (Auto) 0.1 x10^3/uL (0.0-0.7) Basophils # (Auto) 0.6 x10^3/uL (0.0-0.2) Prothrombin Time 16.7 SEC (11.7-14.0) Prothromb Time International Ratio 1.4 (0.8-1.1) Fibrinogen 203 mg/dL (200-440) Sodium Level 136 mmol/L (136-145) Potassium Level 4.9 mmol/L (3.5-5.1) Chloride Level 99 mmol/L (98-107) Carbon Dioxide Level 23 mmol/L (21-32) Anion Gap 14 (6-14) Blood Urea Nitrogen 31 mg/dL (7-20) Creatinine 3.5 mg/dL (0.6-1.0) Estimated GFR (Cockcroft-Gault) 15.6 Glucose Level 198 mg/dL (70-99) Calcium Level 7.7 mg/dL (8.5-10.1) Microbiology 02/14/17 Blood Culture - Preliminary, Resulted NO GROWTH AFTER 2 DAYS 02/14/17 Gram Stain - Final, Complete 02/14/17 Urine Culture - Preliminary, Resulted 02/14/17 Urine Culture Result 1 (DENNY) - Preliminary, Resulted Medications Current Medications Dextrose (Dextrose 50%-Water Syringe) 25 gm STK-MED ONCE IV ; Start 02/14/17 at 21:20; Stop 02/14/17 at 21:21; Status DC Sodium Chloride 2,040 ml @ 510 mls/hr Q4H IV Last administered on 02/14/17 21 :33; Start 02/14/17 at 21:33; Stop 02/14/17 at 22:05; Status DC Vancomycin HCl (Vanco Per Pharmacy) 1 each PRN DAILY PRN MC SEE COMMENTS Last administered on 02/17/17 07:34; Start 02/14/17 at 22:00; Stop 02/17/17 at 08:16 ; Status DC Levofloxacin/ Dextrose (Levaquin Per Pharmacy) 1 each PRN DAILY PRN MC SEE COMMENTS; Start 02/14/17 at 23:00; Stop 02/15/17 at 07:38; Status DC Vancomycin HCl 1.75 gm/Sodium Chloride 500 ml @ 250 mls/hr 1X ONCE IV Last administered on 02/14/17 22:21; Start 02/14/17 at 22:15; Stop 02/15/17 at 00:14 ; Status DC Sodium Chloride 1,000 ml @ 510 mls/hr Q1H58M IV ; Start 02/14/17 at 22:15; Stop 02/15/17 at 01:32; Status DC Levofloxacin/ Dextrose 100 ml @ 100 mls/hr Q48H IV Last administered on 22:58; Start 02/14/17 at 23:00; Stop 02/15/17 at 07:38; Status DC Dextrose (Dextrose 50%-Water Syringe) 25 gm 1X ONCE IV Last administered on 22:52; Start 02/14/17 at 23:00; Stop 02/14/17 at 23:01; Status DC Dextrose (Dextrose 50%-Water Syringe) 25 gm 1X ONCE IV ; Start 02/14/17 at 23: 00; Stop 02/14/17 at 23:01; Status DC Furosemide (Lasix) 40 mg 1X PRN PRN IV blood transfusion; Start 02/14/17 at 23: 00; Stop 02/15/17 at 22:59; Status DC Dopamine HCl/ Dextrose 250 ml @ 12.688 mls/ hr CONT PRN IV SEE I/O RECORD Last administered on 02/14/17 23:44; Start 02/14/17 at 23:15 Ondansetron HCl (Zofran) 4 mg PRN Q6HRS PRN IV NAUSEA/VOMITING Last administered on 02/15/17 05:47; Start 02/14/17 at 23:15 Famotidine (Pepcid) 10 mg BID IVP Last administered on 02/16/17 22:49; Start 02/15/17 at 09:00 Acetaminophen (Tylenol) 120 mg PRN Q6HRS PRN [place] MILD PAIN / TEMP; Start at 23:15 Acetaminophen (Tylenol) 500 mg PRN Q6HRS PRN PO MILD PAIN / TEMP; Start at 23:15 Vancomycin HCl 1 each 1X ONCE MC ; Start 02/16/17 at 22:30; Stop 02/16/17 at 22 :30; Status DC Ondansetron HCl (Zofran) 4 mg PRN Q8HRS PRN IV NAUSEA/VOMITING; Start 02/14/17 at 23:45; Stop 02/15/17 at 23:44; Status DC Dextrose/Sodium Chloride 1,000 ml @ 125 mls/hr 1X ONCE IV ; Start 02/14/17 at 23:45; Stop 02/15/17 at 07:44; Status DC Piperacillin Sod/ Tazobactam Sod 2.25 gm/Sodium Chloride 50 ml @ 100 mls/hr Q6HRS IV Last administered on 02/17/17 06:13; Start 02/15/17 at 07:30 Micafungin Sodium 100 mg/Dextrose 100 ml @ 100 mls/hr Q24H IV Last administered on 02/16/17 12:31; Start 02/15/17 at 08:00 Fentanyl Citrate (Fentanyl 2ml Vial) 50 mcg PRN Q2HR PRN IV PAIN Last administered on 02/16/17 22:48; Start 02/15/17 at 09:15 Morphine Sulfate 4 mg PRN Q2HR PRN IV PAIN Last administered on 02/17/17 00:47 ; Start 02/15/17 at 09:45 Sodium Chloride 1,000 ml @ 75 mls/hr [id number] IV Last administered on 17:42; Start 02/15/17 at 10:00; Stop 02/16/17 at 17:54; Status DC Phytonadione (Vitamin K Ampule) 10 mg 1X ONCE SQ Last administered on 11:35; Start 02/15/17 at 10:30; Stop 02/15/17 at 10:33; Status DC Desmopressin Acetate 20 mcg/ Sodium Chloride 55 ml @ 102 mls/hr 1X ONCE IV Last administered on 02/15/17 11:35; Start 02/15/17 at 11:00; Stop 02/15/17 at 11:32; Status DC Hydroxyurea (Hydrea) 500 mg QMWF PO Last administered on 02/15/17 23:48; Start 02/15/17 at 11:00 Lidocaine/Sodium Bicarbonate (Buffered Lidocaine 1%) 20 ml STK-MED ONCE IJ ; Start 02/15/17 at 11:23; Stop 02/15/17 at 11:24; Status DC Heparin Sodium/ Sodium Chloride 500 ml @ As Directed STK-MED ONCE .ROUTE ; Start 02/15/17 at 11:23; Stop 02/15/17 at 11:24; Status DC Heparin Sodium (Porcine) (Heparin Sodium) 10,000 unit STK-MED ONCE .ROUTE ; Start 02/15/17 at 11:49; Stop 02/15/17 at 11:50; Status DC Lidocaine/Sodium Bicarbonate (Buffered Lidocaine 1%) 3 ml 1X ONCE IJ Last administered on 02/15/17 12:14; Start 02/15/17 at 12:00; Stop 02/15/17 at 12:14 ; Status DC Heparin Sodium/ Sodium Chloride 60 unit 1X ONCE IV Last administered on 12:17; Start 02/15/17 at 12:00; Stop 02/15/17 at 12:14; Status DC Heparin Sodium (Porcine) (Heparin Sodium) 2,500 unit 1X ONCE INT CAT Last administered on 02/15/17 12:17; Start 02/15/17 at 12:00; Stop 02/15/17 at 12:14 ; Status DC Vancomycin HCl 1 each 1X ONCE MC Last administered on 02/16/17 05:00; Start 02/16/17 at 05:00; Stop 02/16/17 at 05:01; Status DC Sodium Chloride 1,000 ml @ 1,000 mls/hr Q1H PRN IV hypotension; Start 02/15/17 at 13:56; Stop 02/15/17 at 19:55; Status DC Sodium Chloride 1,000 ml @ 400 mls/hr Q2H30M PRN IV PATENCY; Start 02/15/17 at 13:56; Stop 02/16/17 at 01:55; Status DC Info (PHARMACY MONITORING -- do not chart) 1 each PRN DAILY PRN MC SEE COMMENTS ; Start 02/15/17 at 14:00; Status UNV Info (PHARMACY MONITORING -- do not chart) 1 each PRN DAILY PRN MC SEE COMMENTS ; Start 02/15/17 at 14:00 Albuterol Sulfate (Ventolin Neb Soln) 2.5 mg PRN Q4HRS PRN NEB SHORTNESS OF BREATH; Start 02/15/17 at 15:30 Vancomycin HCl 500 mg/Sodium Chloride 100 ml @ 100 mls/hr 1X ONCE IV Last administered on 02/16/17 17:41; Start 02/16/17 at 16:00; Stop 02/16/17 at 16:59 ; Status DC Sodium Chloride 1,000 ml @ 1,000 mls/hr Q1H PRN IV hypotension; Start 02/16/17 at 13:41; Stop 02/16/17 at 19:40; Status DC Sodium Chloride 1,000 ml @ 400 mls/hr Q2H30M PRN IV PATENCY; Start 02/16/17 at 13:41; Stop 02/17/17 at 01:40; Status DC Info (PHARMACY MONITORING -- do not chart) 1 each PRN DAILY PRN MC SEE COMMENTS ; Start 02/16/17 at 13:45 Vancomycin HCl 500 mg/Sodium Chloride 100 ml @ 100 mls/hr 1X ONCE IV ; Start 02/17/17 at 15:00; Stop 02/17/17 at 15:00; Status DC Sodium Chloride 1,000 ml @ 1,000 mls/hr Q1H PRN IV hypotension; Start 02/17/17 at 09:24; Stop 02/17/17 at 15:23 Sodium Chloride (Normal Saline Flush) 10 ml 1X PRN PRN IV AP catheter pack; Start 02/17/17 at 09:30; Stop 02/18/17 at 09:29 Sodium Chloride (Normal Saline Flush) 10 ml 1X PRN PRN IV [employer] catheter pack; Start 02/17/17 at 09:30; Stop 02/18/17 at 09:29 Sodium Chloride 1,000 ml @ 400 mls/hr Q2H30M PRN IV PATENCY; Start 02/17/17 at 09:24; Stop 02/17/17 at 21:23 Info (PHARMACY MONITORING -- do not chart) 1 each PRN DAILY PRN MC SEE COMMENTS ; Start 02/17/17 at 09:30 Albumin Human 100 ml @ 100 mls/hr 1X STAT IV Last administered on 02/17/17t 09:49; Start 02/17/17 at 09:35; Stop 02/17/17 at 10:34 Albumin Human 100 ml @ 100 mls/hr 1X ONCE IV ; Start 02/17/17 at 10:45; Stop 02/17/17 at 11:44 Active Scripts Active Reported Lantus Solostar (Insulin Glargine,Hum.rec.anlog) 100 Unit/1 Ml Insuln.pen 22 Unit SQ QHS Droxia (Hydroxyurea) 200 Mg Capsule 200 Mg PO DAILY Feosol (Ferrous Sulfate) 325 Mg Tablet 325 Mg PO DAILY Coreg (Carvedilol) 12.5 Mg Tablet 1 Tab PO BID Bumetanide 2 Mg Tablet 2 Tab PO BID Aspir 81 (Aspirin) 81 Mg Tablet.dr 1 Tab PO DAILY Allopurinol 300 Mg Tablet 1 Tab PO DAILY Advair 250-50 Diskus (Fluticasone/Salmeterol) 1 Each Disk.w.dev 1 Puff IH Q12HR Zetia (Ezetimibe) 10 Mg Tablet 0.5 Tab PO DAILY Zemplar (Paricalcitol) 1 Mcg Capsule 1 Cap PO DAILY Sodium Bicarbonate 650 Mg Tablet 850 Mg PO BID Sensipar (Cinacalcet Hcl) 30 Mg Tablet 30 Mg PO QODAY Renvela (Sevelamer Carbonate) 800 Mg Tablet 2 Tab PO TID Proair Hfa Inhaler (Albuterol Sulfate) 8.5 Gm Hfa.aer.ad 2 Puff INH PRN Q4HRS PRN Omeprazole 40 Mg Capsule.dr 1 Cap PO DAILY Percocet 5-325 Mg Tablet (Oxycodone/Acetaminophen) 1 Each Tablet 1-2 Tab PO PRN Q6HRS PRN Novolog Flexpen (Insulin Aspart) 100 Unit/1 Ml Insuln.pen 15 Unit SQ DAILY Novolog Flexpen (Insulin Aspart) 100 Unit/1 Ml Insuln.pen 12 Unit SQ BIDACBL Norvasc (Amlodipine Besylate) 10 Mg Tablet 10 Mg PO DAILY Miralax (Polyethylene Glycol 3350) 17 Gm Powd.pack 1 Packet PO DAILY Lipitor (Atorvastatin Calcium) 40 Mg Tablet 1 Tab PO DAILY Lidocaine 1 Each Adh..patch 1 Each TP DAILY Vitals/I & O Vital Sign - Last 24 Hours 02/16/17 02/16/17 02/16/17 02/16/17 11:00 12:00 12:00 12:35 Temp 97.6 97.6 Pulse 94 94 Resp 15 15 B/P (MAP) 121/49 (73) 110/53 (72) Pulse Ox 100 100 100 O2 Delivery Room Air Room Air Room Air Room Air 02/16/17 02/16/17 02/16/17 02/16/17 13:00 14:00 15:00 16:00 Pulse 110 98 118 108 Resp 15 15 15 15 B/P (MAP) 145/70 (95) 132/68 (89) 108/66 (80) 161/78 (105) Pulse Ox 99 97 100 100 O2 Delivery Room Air Room Air Room Air Room Air 02/16/17 02/16/17 02/16/17 02/16/17 16:00 16:47 17:00 18:00 Temp 97.3 97.3 Pulse 100 92 Resp 15 15 B/P (MAP) 98/59 (72) 120/57 (78) Pulse Ox 100 98 98 O2 Delivery Nasal Cannula Room Air Room Air Room Air O2 Flow Rate 2.0 02/16/17 02/16/17 02/16/1702/16/17 19:00 20:00 20:00 20:15 Temp 97.6 97.6 Pulse 105 97 Resp 12 10 12 B/P (MAP) 132/69 (90) 128/65 (86) Pulse Ox 98 97 98 O2 Delivery Room Air Room Air Nasal Cannula Nasal Cannula O2 Flow Rate 2.0 2.0 02/16/17 02/16/17 02/16/17 02/16/17 20:45 21:00 22:00 22:48 Pulse 92 76 Resp 12 12 20 12 B/P (MAP) 152/67 (95) 151/77 (101) Pulse Ox 100 98 98 98 O2 Delivery Nasal Cannula Room Air Room Air Nasal Cannula O2 Flow Rate 2.0 2.0 02/16/17 02/16/17 02/17/17 02/17/17 23:00 23:59 00:00 00:47 Temp 97.9 97.9 Pulse 102 95 Resp 12 10 12 B/P (MAP) 140/70 (93) 139/71 (93) Pulse Ox 98 98 98 O2 Delivery Room Air Nasal Cannula Room Air Nasal Cannula O2 Flow Rate 2.0 2.0 02/17/17 02/17/17 02/17/17 02/17/17 01:00 01:17 02:00 03:00 Temp 97.7 97.7 Pulse 99 92 90 Resp 10 10 10 12 B/P (MAP) 119/60 (79) 122/56 (78) 120/61 (80) Pulse Ox 98 100 100 100 O2 Delivery Room Air Nasal Cannula Room Air Room Air O2 Flow Rate 2.0 02/17/17 02/17/17 02/17/17 02/17/17 04:00 04:00 05:00 06:00 Pulse 90 106 114 Resp 10 12 8 B/P (MAP) 119/51 (73) 128/53 (78) 119/61 (80) Pulse Ox 95 96 98 O2 Delivery Room Air Nasal Cannula Room Air Room Air O2 Flow Rate 2.0 Nutrition Consultation Dietary Evaluation: Recommendations by RD: Increase Calorie Intake, PPN/TPN Comments: PPN/TPN if PO intake on liquid diet unable to meet > 75% needs Expected Outcomes/Goals: Initiation of nutrition within 24-48 hrs Interpretation of weight loss: >1-2% in 1 week Malnutrition Findings: Food and Nutrition Intake (Mod: <75% est energy req 7days Weight Status: Appropriate ALPESH BROWN MD Feb 17, 2017 10:11
--- NOTE | 2017-02-17 10:17 | PDOC ---
PULMONARY PROGRESS NOTES Subjective PT WITH EMESIS NOT MORE SOA S/P HD Vitals Vital Signs Date Time Temp Pulse Resp B/P (MAP) Pulse Ox O2 Delivery O2 Flow Rate FiO2 02/17/17 06:00 114 8 119/61 (80) 98 Room Air 02/17/17 04:00 2.0 02/17/17 03:00 97.7 97.7 ROS: No Chest Pain, No Increase Cough General: Alert Lungs: Crackles Cardiovascular: S1, S2 Abdomen: Soft Neuro Exam: Alert Extremities: No Edema Skin: Warm Labs Laboratory Tests Test 02/15/17 13:01 02/15/17 16:58 02/16/17 05:10 02/16/17 05:18 Glucose (Fingerstick) 114 mg/dL (70-99) 141 mg/dL (70-99) Lactic Acid Level 2.7 mmol/L (0.4-2.0) White Blood Count 80.2 x10^3/uL (4.0-11.0) Red Blood Count 1.93 x10^6/uL (3.50-5.40) Hemoglobin 5.4 g/dL (12.0-15.5) Hematocrit 16.7 % (36.0-47.0) Mean Corpuscular Volume 86 fL (79-100) Mean Corpuscular Hemoglobin 28 pg (25-35) Mean Corpuscular Hemoglobin Concent 32 g/dL (31-37) Red Cell Distribution Width 21.6 % (11.5-14.5) Platelet Count 704 x10^3/uL (140-400) Neutrophils (%) (Auto) 96 % (31-73) Lymphocytes (%) (Auto) 2 % (24-48) Monocytes (%) (Auto) 1 % (0-9) Eosinophils (%) (Auto) 0 % (0-3) Basophils (%) (Auto) 1 % (0-3) Neutrophils # (Auto) 76.7 x10^3uL (1.8-7.7) Lymphocytes # (Auto) 1.7 x10^3/uL (1.0-4.8) Monocytes # (Auto) 0.9 x10^3/uL (0.0-1.1) Eosinophils # (Auto) 0.2 x10^3/uL (0.0-0.7) Basophils # (Auto) 0.7 x10^3/uL (0.0-0.2) Prothrombin Time 18.3 SEC (11.7-14.0) Prothromb Time International Ratio 1.6 (0.8-1.1) Fibrinogen 185 mg/dL (200-440) Sodium Level 138 mmol/L (136-145) Potassium Level 4.5 mmol/L (3.5-5.1) Chloride Level 101 mmol/L (98-107) Carbon Dioxide Level 26 mmol/L (21-32) Anion Gap 11 (6-14) Blood Urea Nitrogen 40 mg/dL (7-20) Creatinine 4.5 mg/dL (0.6-1.0) Estimated GFR (Cockcroft-Gault) 11.7 BUN/Creatinine Ratio 9 (6-20) Glucose Level 135 mg/dL (70-99) Calcium Level 7.5 mg/dL (8.5-10.1) Total Bilirubin 0.7 mg/dL (0.2-1.0) Aspartate Amino Transf (AST/SGOT) 63 U/L (15-37) Alanine Aminotransferase (ALT/SGPT) 18 U/L (14-59) Alkaline Phosphatase 124 U/L (46-116) Total Protein 5.1 g/dL (6.4-8.2) Albumin 2.4 g/dL (3.4-5.0) Albumin/Globulin Ratio 0.9 (1.0-1.7) Free Thyroxine 1.37 ng/dL (0.76-1.46) Free Triiodothyronine (T3) pg/mL 0.66 pg/mL (2.18-3.98) Random Vancomycin Level 14.4 mcg/mL Test 02/16/17 13:45 02/17/17 07:25 White Blood Count 81.3 x10^3/uL (4.0-11.0) 107.1 x10^3/uL (4.0-11.0) Red Blood Count 3.07 x10^6/uL (3.50-5.40) 2.52 x10^6/uL (3.50-5.40) Hemoglobin 8.6 g/dL (12.0-15.5) 7.0 g/dL (12.0-15.5) Hematocrit 27.1 % (36.0-47.0) 22.3 % (36.0-47.0) Mean Corpuscular Volume 88 fL (79-100) 89 fL (79-100) Mean Corpuscular Hemoglobin 28 pg (25-35) 28 pg (25-35) Mean Corpuscular Hemoglobin Concent 32 g/dL (31-37) 31 g/dL (31-37) Red Cell Distribution Width 17.2 % (11.5-14.5) 17.8 % (11.5-14.5) Platelet Count 518 x10^3/uL (140-400) 574 x10^3/uL (140-400) Neutrophils (%) (Auto) 97 % (31-73) Lymphocytes (%) (Auto) 1 % (24-48) Monocytes (%) (Auto) 1 % (0-9) Eosinophils (%) (Auto) 0 % (0-3) Basophils (%) (Auto) 1 % (0-3) Neutrophils # (Auto) 78.9 x10^3uL (1.8-7.7) Lymphocytes # (Auto) 1.1 x10^3/uL (1.0-4.8) Monocytes # (Auto) 0.6 x10^3/uL (0.0-1.1) Eosinophils # (Auto) 0.1 x10^3/uL (0.0-0.7) Basophils # (Auto) 0.6 x10^3/uL (0.0-0.2) Prothrombin Time 16.7 SEC (11.7-14.0) Prothromb Time International Ratio 1.4 (0.8-1.1) Fibrinogen 203 mg/dL (200-440) Sodium Level 136 mmol/L (136-145) Potassium Level 4.9 mmol/L (3.5-5.1) Chloride Level 99 mmol/L (98-107) Carbon Dioxide Level 23 mmol/L (21-32) Anion Gap 14 (6-14) Blood Urea Nitrogen 31 mg/dL (7-20) Creatinine 3.5 mg/dL (0.6-1.0) Estimated GFR (Cockcroft-Gault) 15.6 Glucose Level 198 mg/dL (70-99) Calcium Level 7.7 mg/dL (8.5-10.1) Laboratory Tests Test 02/16/17 13:45 02/17/17 07:25 White Blood Count 81.3 x10^3/uL (4.0-11.0) 107.1 x10^3/uL (4.0-11.0) Red Blood Count 3.07 x10^6/uL (3.50-5.40) 2.52 x10^6/uL (3.50-5.40) Hemoglobin 8.6 g/dL (12.0-15.5) 7.0 g/dL (12.0-15.5) Hematocrit 27.1 % (36.0-47.0) 22.3 % (36.0-47.0) Mean Corpuscular Volume 88 fL (79-100) 89 fL (79-100) Mean Corpuscular Hemoglobin 28 pg (25-35) 28 pg (25-35) Mean Corpuscular Hemoglobin Concent 32 g/dL (31-37) 31 g/dL (31-37) Red Cell Distribution Width 17.2 % (11.5-14.5) 17.8 % (11.5-14.5) Platelet Count 518 x10^3/uL (140-400) 574 x10^3/uL (140-400) Neutrophils (%) (Auto) 97 % (31-73) Lymphocytes (%) (Auto) 1 % (24-48) Monocytes (%) (Auto) 1 % (0-9) Eosinophils (%) (Auto) 0 % (0-3) Basophils (%) (Auto) 1 % (0-3) Neutrophils # (Auto) 78.9 x10^3uL (1.8-7.7) Lymphocytes # (Auto) 1.1 x10^3/uL (1.0-4.8) Monocytes # (Auto) 0.6 x10^3/uL (0.0-1.1) Eosinophils # (Auto) 0.1 x10^3/uL (0.0-0.7) Basophils # (Auto) 0.6 x10^3/uL (0.0-0.2) Prothrombin Time 16.7 SEC (11.7-14.0) Prothromb Time International Ratio 1.4 (0.8-1.1) Fibrinogen 203 mg/dL (200-440) Sodium Level 136 mmol/L (136-145) Potassium Level 4.9 mmol/L (3.5-5.1) Chloride Level 99 mmol/L (98-107) Carbon Dioxide Level 23 mmol/L (21-32) Anion Gap 14 (6-14) Blood Urea Nitrogen 31 mg/dL (7-20) Creatinine 3.5 mg/dL (0.6-1.0) Estimated GFR (Cockcroft-Gault) 15.6 Glucose Level 198 mg/dL (70-99) Calcium Level 7.7 mg/dL (8.5-10.1) Medications Active Scripts Medications Dose Route/Sig Max Daily Dose Days Date Category Lantus Solostar (Insulin Glargine,Hum.rec.anlog) 100 Unit/1 Ml Insuln.pen 22 Unit SQ QHS 02/15/17 Reported Droxia (Hydroxyurea) 200 Mg Capsule 200 Mg PO DAILY 02/15/17 Reported Feosol (Ferrous Sulfate) 325 Mg Tablet 325 Mg PO DAILY 02/15/17 Reported Coreg (Carvedilol) 12.5 Mg Tablet 1 Tab PO BID 02/15/17 Reported Bumetanide 2 Mg Tablet 2 Tab PO BID 02/15/17 Reported Aspir 81 (Aspirin) 81 Mg Tablet.dr 1 Tab PO DAILY 02/15/17 Reported Allopurinol 300 Mg Tablet 1 Tab PO DAILY 02/15/17 Reported Advair 250-50 Diskus (Fluticasone/Salmeterol) 1 Each Disk.w.dev 1 Puff IH Q12HR 02/15/17 Reported Zetia (Ezetimibe) 10 Mg Tablet 0.5 Tab PO DAILY 02/15/17 Reported Zemplar (Paricalcitol) 1 Mcg Capsule 1 Cap PO DAILY 02/15/17 Reported Sodium Bicarbonate 650 Mg Tablet 850 Mg PO BID 02/15/17 Reported Sensipar (Cinacalcet Hcl) 30 Mg Tablet 30 Mg PO QODAY 02/15/17 Reported Renvela (Sevelamer Carbonate) 800 Mg Tablet 2 Tab PO TID 02/15/17 Reported Proair Hfa Inhaler (Albuterol Sulfate) 8.5 Gm Hfa.aer.ad 2 Puff INH PRN Q4HRS PRN 02/15/17 Reported Omeprazole 40 Mg Capsule.dr 1 Cap PO DAILY 02/15/17 Reported Percocet 5-325 Mg Tablet (Oxycodone/Acetaminophen) 1 Each Tablet 1-2 Tab PO PRN Q6HRS PRN 02/15/17 Reported Novolog Flexpen (Insulin Aspart) 100 Unit/1 Ml Insuln.pen 15 Unit SQ DAILY 02/15/17 Reported Novolog Flexpen (Insulin Aspart) 100 Unit/1 Ml Insuln.pen 12 Unit SQ BIDACBL 02/15/17 Reported Norvasc (Amlodipine Besylate) 10 Mg Tablet 10 Mg PO DAILY 02/15/17 Reported Miralax (Polyethylene Glycol 3350) 17 Gm Powd.pack 1 Packet PO DAILY 02/15/17 Reported Lipitor (Atorvastatin Calcium) 40 Mg Tablet 1 Tab PO DAILY 02/15/17 Reported Lidocaine 1 Each Adh..patch 1 Each TP DAILY 02/15/17 Reported Impression . 1. Abnormal CT of the abdomen revealing some basilar opacities, suspect mostly atelectasis. 2. Asthma. 3. Sepsis present upon admission. 4. Hypothermia. 5. Leukocytosis. 6. Lactic acidosis. 7. Chronic kidney disease, status post recent catheter for dialysis. 8. Acute toxic metabolic encephalopathy. 9. Diabetes. 10. Polycythemia. 11. Intraabdominal hematoma. Plan . 02, PRN NEBS WILL START TPN, NPO FOR NOW 1. RESP STATUS COMPENSATED 2. Antibiotics for sepsis per ID. 3. Follow Nephrology input. 4. Follow hem input 5. Intraabdominal hematoma. DENISE MCKINNON MD Feb 17, 2017 10:17
[2017-02-17] MEDS: fentaNYL PF VIAL 100 MCG/2 ML VIAL IV PRN (10:25)
[2017-02-17] MEDS ORDERED: ALBUMIN HUMAN 25% 100 ML IV ONE (10:45)
--- NOTE | 2017-02-17 11:10 | PDOC ---
PROGRESS NOTES Chief Complaint Chief Complaint 1. Severe Anemia 2., Hx MDS with WBC 80K 3. Severe thormbocytosis, reactive likely from # 1 - inc chances of bleeding 4. ESRD recent PD cath insertion [facility] last week 5. TJ on ESRD, creat 7,.2, - k and bicarb ok, insert izquierdo now 6. Elevated LFTs, alk phosphatase in the background of severe hypotension and MDS 7. Hypotensive shock, hemorrhagic? anemia? SIRS vs sepsis with ORGAN dysfcn 8. Elevated iNR 1.8 - no bleeding obvious so far 9. Abd pain - per report, stat CT 10. Hypothermia, hypoglycemia - nedra hugger, dextrose -given and BS better 11. 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 plans- I knOW she is a very high risk bleed surgical pt/ given very high white cts and platelets and anemia Options about getting IR involved - in the works PLAN: TRAnsfsue 2 pRBC again today Levophed during HD prn Hh daily at least Renal pamnel daily 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,m need IV dye to re scan abd to see better - DW LUIGI Wheat for IV DYE PLans on re HD monday Dw Muiltiple people CC 36 mins COnt HYdroxyurea Vitals Vitals Vital Signs Date Time Temp Pulse Resp B/P (MAP) Pulse Ox O2 Delivery O2 Flow Rate FiO2 02/17/17 10:25 98 Nasal Cannula 2.0 02/17/17 06:00 114 8 119/61 (80) 02/17/17 03:00 97.7 97.7 Physical Exam General: Alert, Oriented X3 Heart: Normal S1, Normal S2 Lungs: Crackles Abdomen: Soft, Other (abdominal TTP, pd cath in place) Extremities: No clubbing, No cyanosis Skin: No rashes, No significant lesion Labs LABS Laboratory Tests Test 02/16/17 13:45 02/17/17 07:25 White Blood Count 81.3 x10^3/uL (4.0-11.0) 107.1 x10^3/uL (4.0-11.0) Red Blood Count 3.07 x10^6/uL (3.50-5.40) 2.52 x10^6/uL (3.50-5.40) Hemoglobin 8.6 g/dL (12.0-15.5) 7.0 g/dL (12.0-15.5) Hematocrit 27.1 % (36.0-47.0) 22.3 % (36.0-47.0) Mean Corpuscular Volume 88 fL (79-100) 89 fL (79-100) Mean Corpuscular Hemoglobin 28 pg (25-35) 28 pg (25-35) Mean Corpuscular Hemoglobin Concent 32 g/dL (31-37) 31 g/dL (31-37) Red Cell Distribution Width 17.2 % (11.5-14.5) 17.8 % (11.5-14.5) Platelet Count 518 x10^3/uL (140-400) 574 x10^3/uL (140-400) Neutrophils (%) (Auto) 97 % (31-73) Lymphocytes (%) (Auto) 1 % (24-48) Monocytes (%) (Auto) 1 % (0-9) Eosinophils (%) (Auto) 0 % (0-3) Basophils (%) (Auto) 1 % (0-3) Neutrophils # (Auto) 78.9 x10^3uL (1.8-7.7) Lymphocytes # (Auto) 1.1 x10^3/uL (1.0-4.8) Monocytes # (Auto) 0.6 x10^3/uL (0.0-1.1) Eosinophils # (Auto) 0.1 x10^3/uL (0.0-0.7) Basophils # (Auto) 0.6 x10^3/uL (0.0-0.2) Prothrombin Time 16.7 SEC (11.7-14.0) Prothromb Time International Ratio 1.4 (0.8-1.1) Fibrinogen 203 mg/dL (200-440) Sodium Level 136 mmol/L (136-145) Potassium Level 4.9 mmol/L (3.5-5.1) Chloride Level 99 mmol/L (98-107) Carbon Dioxide Level 23 mmol/L (21-32) Anion Gap 14 (6-14) Blood Urea Nitrogen 31 mg/dL (7-20) Creatinine 3.5 mg/dL (0.6-1.0) Estimated GFR (Cockcroft-Gault) 15.6 Glucose Level 198 mg/dL (70-99) Calcium Level 7.7 mg/dL (8.5-10.1) Review of Systems Review of Systems too weak, cristine monge Assessment and Plan Assessmemt and Plan Problems Medical Problems: (1) Anemia Status: Acute (2) Coagulopathy Status: Acute (3) Congestive heart failure Status: Acute (4) End stage renal disease Status: Acute (5) Hypoglycemia Status: Acute (6) Hypotension Status: Acute (7) Myelodysplastic syndrome Status: Acute Problems: Comment Review of Relevant I have reviewed the following items laure (where applicable) has been applied. Labs Laboratory Tests Test 02/15/17 13:01 02/15/17 16:58 02/16/17 05:10 02/16/17 05:18 Glucose (Fingerstick) 114 mg/dL (70-99) 141 mg/dL (70-99) Lactic Acid Level 2.7 mmol/L (0.4-2.0) White Blood Count 80.2 x10^3/uL (4.0-11.0) Red Blood Count 1.93 x10^6/uL (3.50-5.40) Hemoglobin 5.4 g/dL (12.0-15.5) Hematocrit 16.7 % (36.0-47.0) Mean Corpuscular Volume 86 fL (79-100) Mean Corpuscular Hemoglobin 28 pg (25-35) Mean Corpuscular Hemoglobin Concent 32 g/dL (31-37) Red Cell Distribution Width 21.6 % (11.5-14.5) Platelet Count 704 x10^3/uL (140-400) Neutrophils (%) (Auto) 96 % (31-73) Lymphocytes (%) (Auto) 2 % (24-48) Monocytes (%) (Auto) 1 % (0-9) Eosinophils (%) (Auto) 0 % (0-3) Basophils (%) (Auto) 1 % (0-3) Neutrophils # (Auto) 76.7 x10^3uL (1.8-7.7) Lymphocytes # (Auto) 1.7 x10^3/uL (1.0-4.8) Monocytes # (Auto) 0.9 x10^3/uL (0.0-1.1) Eosinophils # (Auto) 0.2 x10^3/uL (0.0-0.7) Basophils # (Auto) 0.7 x10^3/uL (0.0-0.2) Prothrombin Time 18.3 SEC (11.7-14.0) Prothromb Time International Ratio 1.6 (0.8-1.1) Fibrinogen 185 mg/dL (200-440) Sodium Level 138 mmol/L (136-145) Potassium Level 4.5 mmol/L (3.5-5.1) Chloride Level 101 mmol/L (98-107) Carbon Dioxide Level 26 mmol/L (21-32) Anion Gap 11 (6-14) Blood Urea Nitrogen 40 mg/dL (7-20) Creatinine 4.5 mg/dL (0.6-1.0) Estimated GFR (Cockcroft-Gault) 11.7 BUN/Creatinine Ratio 9 (6-20) Glucose Level 135 mg/dL (70-99) Calcium Level 7.5 mg/dL (8.5-10.1) Total Bilirubin 0.7 mg/dL (0.2-1.0) Aspartate Amino Transf (AST/SGOT) 63 U/L (15-37) Alanine Aminotransferase (ALT/SGPT) 18 U/L (14-59) Alkaline Phosphatase 124 U/L (46-116) Total Protein 5.1 g/dL (6.4-8.2) Albumin 2.4 g/dL (3.4-5.0) Albumin/Globulin Ratio 0.9 (1.0-1.7) Free Thyroxine 1.37 ng/dL (0.76-1.46) Free Triiodothyronine (T3) pg/mL 0.66 pg/mL (2.18-3.98) Random Vancomycin Level 14.4 mcg/mL Test 02/16/17 13:45 02/17/17 07:25 White Blood Count 81.3 x10^3/uL (4.0-11.0) 107.1 x10^3/uL (4.0-11.0) Red Blood Count 3.07 x10^6/uL (3.50-5.40) 2.52 x10^6/uL (3.50-5.40) Hemoglobin 8.6 g/dL (12.0-15.5) 7.0 g/dL (12.0-15.5) Hematocrit 27.1 % (36.0-47.0) 22.3 % (36.0-47.0) Mean Corpuscular Volume 88 fL (79-100) 89 fL (79-100) Mean Corpuscular Hemoglobin 28 pg (25-35) 28 pg (25-35) Mean Corpuscular Hemoglobin Concent 32 g/dL (31-37) 31 g/dL (31-37) Red Cell Distribution Width 17.2 % (11.5-14.5) 17.8 % (11.5-14.5) Platelet Count 518 x10^3/uL (140-400) 574 x10^3/uL (140-400) Neutrophils (%) (Auto) 97 % (31-73) Lymphocytes (%) (Auto) 1 % (24-48) Monocytes (%) (Auto) 1 % (0-9) Eosinophils (%) (Auto) 0 % (0-3) Basophils (%) (Auto) 1 % (0-3) Neutrophils # (Auto) 78.9 x10^3uL (1.8-7.7) Lymphocytes # (Auto) 1.1 x10^3/uL (1.0-4.8) Monocytes # (Auto) 0.6 x10^3/uL (0.0-1.1) Eosinophils # (Auto) 0.1 x10^3/uL (0.0-0.7) Basophils # (Auto) 0.6 x10^3/uL (0.0-0.2) Prothrombin Time 16.7 SEC (11.7-14.0) Prothromb Time International Ratio 1.4 (0.8-1.1) Fibrinogen 203 mg/dL (200-440) Sodium Level 136 mmol/L (136-145) Potassium Level 4.9 mmol/L (3.5-5.1) Chloride Level 99 mmol/L (98-107) Carbon Dioxide Level 23 mmol/L (21-32) Anion Gap 14 (6-14) Blood Urea Nitrogen 31 mg/dL (7-20) Creatinine 3.5 mg/dL (0.6-1.0) Estimated GFR (Cockcroft-Gault) 15.6 Glucose Level 198 mg/dL (70-99) Calcium Level 7.7 mg/dL (8.5-10.1) Laboratory Tests Test 02/16/17 13:45 02/17/17 07:25 White Blood Count 81.3 x10^3/uL (4.0-11.0) 107.1 x10^3/uL (4.0-11.0) Red Blood Count 3.07 x10^6/uL (3.50-5.40) 2.52 x10^6/uL (3.50-5.40) Hemoglobin 8.6 g/dL (12.0-15.5) 7.0 g/dL (12.0-15.5) Hematocrit 27.1 % (36.0-47.0) 22.3 % (36.0-47.0) Mean Corpuscular Volume 88 fL (79-100) 89 fL (79-100) Mean Corpuscular Hemoglobin 28 pg (25-35) 28 pg (25-35) Mean Corpuscular Hemoglobin Concent 32 g/dL (31-37) 31 g/dL (31-37) Red Cell Distribution Width 17.2 % (11.5-14.5) 17.8 % (11.5-14.5) Platelet Count 518 x10^3/uL (140-400) 574 x10^3/uL (140-400) Neutrophils (%) (Auto) 97 % (31-73) Lymphocytes (%) (Auto) 1 % (24-48) Monocytes (%) (Auto) 1 % (0-9) Eosinophils (%) (Auto) 0 % (0-3) Basophils (%) (Auto) 1 % (0-3) Neutrophils # (Auto) 78.9 x10^3uL (1.8-7.7) Lymphocytes # (Auto) 1.1 x10^3/uL (1.0-4.8) Monocytes # (Auto) 0.6 x10^3/uL (0.0-1.1) Eosinophils # (Auto) 0.1 x10^3/uL (0.0-0.7) Basophils # (Auto) 0.6 x10^3/uL (0.0-0.2) Prothrombin Time 16.7 SEC (11.7-14.0) Prothromb Time International Ratio 1.4 (0.8-1.1) Fibrinogen 203 mg/dL (200-440) Sodium Level 136 mmol/L (136-145) Potassium Level 4.9 mmol/L (3.5-5.1) Chloride Level 99 mmol/L (98-107) Carbon Dioxide Level 23 mmol/L (21-32) Anion Gap 14 (6-14) Blood Urea Nitrogen 31 mg/dL (7-20) Creatinine 3.5 mg/dL (0.6-1.0) Estimated GFR (Cockcroft-Gault) 15.6 Glucose Level 198 mg/dL (70-99) Calcium Level 7.7 mg/dL (8.5-10.1) Microbiology 02/14/17 Blood Culture - Preliminary, Resulted NO GROWTH AFTER 2 DAYS 02/14/17 Gram Stain - Final, Complete 02/14/17 Urine Culture - Preliminary, Resulted 02/14/17 Urine Culture Result 1 (DENNY) - Preliminary, Resulted Medications Current Medications Dextrose (Dextrose 50%-Water Syringe) 25 gm STK-MED ONCE IV ; Start 02/14/17 at 21:20; Stop 02/14/17 at 21:21; Status DC Sodium Chloride 2,040 ml @ 510 mls/hr Q4H IV Last administered on 02/14/17 21 :33; Start 02/14/17 at 21:33; Stop 02/14/17 at 22:05; Status DC Vancomycin HCl (Vanco Per Pharmacy) 1 each PRN DAILY PRN MC SEE COMMENTS Last administered on 02/17/17 07:34; Start 02/14/17 at 22:00; Stop 02/17/17 at 08:16 ; Status DC Levofloxacin/ Dextrose (Levaquin Per Pharmacy) 1 each PRN DAILY PRN MC SEE COMMENTS; Start 02/14/17 at 23:00; Stop 02/15/17 at 07:38; Status DC Vancomycin HCl 1.75 gm/Sodium Chloride 500 ml @ 250 mls/hr 1X ONCE IV Last administered on 02/14/17 22:21; Start 02/14/17 at 22:15; Stop 02/15/17 at 00:14 ; Status DC Sodium Chloride 1,000 ml @ 510 mls/hr Q1H58M IV ; Start 02/14/17 at 22:15; Stop 02/15/17 at 01:32; Status DC Levofloxacin/ Dextrose 100 ml @ 100 mls/hr Q48H IV Last administered on 22:58; Start 02/14/17 at 23:00; Stop 02/15/17 at 07:38; Status DC Dextrose (Dextrose 50%-Water Syringe) 25 gm 1X ONCE IV Last administered on 22:52; Start 02/14/17 at 23:00; Stop 02/14/17 at 23:01; Status DC Dextrose (Dextrose 50%-Water Syringe) 25 gm 1X ONCE IV ; Start 02/14/17 at 23: 00; Stop 02/14/17 at 23:01; Status DC Furosemide (Lasix) 40 mg 1X PRN PRN IV blood transfusion; Start 02/14/17 at 23: 00; Stop 02/15/17 at 22:59; Status DC Dopamine HCl/ Dextrose 250 ml @ 12.688 mls/ hr CONT PRN IV SEE I/O RECORD Last administered on 02/14/17 23:44; Start 02/14/17 at 23:15 Ondansetron HCl (Zofran) 4 mg PRN Q6HRS PRN IV NAUSEA/VOMITING Last administered on 02/15/17 05:47; Start 02/14/17 at 23:15 Famotidine (Pepcid) 10 mg BID IVP Last administered on 02/16/17 22:49; Start 02/15/17 at 09:00 Acetaminophen (Tylenol) 120 mg PRN Q6HRS PRN AK MILD PAIN / TEMP; Start at 23:15 Acetaminophen (Tylenol) 500 mg PRN Q6HRS PRN PO MILD PAIN / TEMP; Start at 23:15 Vancomycin HCl 1 each 1X ONCE MC ; Start 02/16/17 at 22:30; Stop 02/16/17 at 22 :30; Status DC Ondansetron HCl (Zofran) 4 mg PRN Q8HRS PRN IV NAUSEA/VOMITING; Start 02/14/17 at 23:45; Stop 02/15/17 at 23:44; Status DC Dextrose/Sodium Chloride 1,000 ml @ 125 mls/hr 1X ONCE IV ; Start 02/14/17 at 23:45; Stop 02/15/17 at 07:44; Status DC Piperacillin Sod/ Tazobactam Sod 2.25 gm/Sodium Chloride 50 ml @ 100 mls/hr Q6HRS IV Last administered on 02/17/17 06:13; Start 02/15/17 at 07:30 Micafungin Sodium 100 mg/Dextrose 100 ml @ 100 mls/hr Q24H IV Last administered on 02/16/17 12:31; Start 02/15/17 at 08:00 Fentanyl Citrate (Fentanyl 2ml Vial) 50 mcg PRN Q2HR PRN IV PAIN Last administered on 02/17/17 10:25; Start 02/15/17 at 09:15 Morphine Sulfate 4 mg PRN Q2HR PRN IV PAIN Last administered on 02/17/17 00:47 ; Start 02/15/17 at 09:45 Sodium Chloride 1,000 ml @ 75 mls/hr [id number] IV Last administered on 17:42; Start 02/15/17 at 10:00; Stop 02/16/17 at 17:54; Status DC Phytonadione (Vitamin K Ampule) 10 mg 1X ONCE SQ Last administered on 11:35; Start 02/15/17 at 10:30; Stop 02/15/17 at 10:33; Status DC Desmopressin Acetate 20 mcg/ Sodium Chloride 55 ml @ 102 mls/hr 1X ONCE IV Last administered on 02/15/17 11:35; Start 02/15/17 at 11:00; Stop 02/15/17 at 11:32; Status DC Hydroxyurea (Hydrea) 500 mg QMWF PO Last administered on 02/15/17 23:48; Start 02/15/17 at 11:00 Lidocaine/Sodium Bicarbonate (Buffered Lidocaine 1%) 20 ml STK-MED ONCE IJ ; Start 02/15/17 at 11:23; Stop 02/15/17 at 11:24; Status DC Heparin Sodium/ Sodium Chloride 500 ml @ As Directed STK-MED ONCE .ROUTE ; Start 02/15/17 at 11:23; Stop 02/15/17 at 11:24; Status DC Heparin Sodium (Porcine) (Heparin Sodium) 10,000 unit STK-MED ONCE .ROUTE ; Start 02/15/17 at 11:49; Stop 02/15/17 at 11:50; Status DC Lidocaine/Sodium Bicarbonate (Buffered Lidocaine 1%) 3 ml 1X ONCE IJ Last administered on 02/15/17 12:14; Start 02/15/17 at 12:00; Stop 02/15/17 at 12:14 ; Status DC Heparin Sodium/ Sodium Chloride 60 unit 1X ONCE IV Last administered on 12:17; Start 02/15/17 at 12:00; Stop 02/15/17 at 12:14; Status DC Heparin Sodium (Porcine) (Heparin Sodium) 2,500 unit 1X ONCE INT CAT Last administered on 02/15/17 12:17; Start 02/15/17 at 12:00; Stop 02/15/17 at 12:14 ; Status DC Vancomycin HCl 1 each 1X ONCE MC Last administered on 02/16/17 05:00; Start 02/16/17 at 05:00; Stop 02/16/17 at 05:01; Status DC Sodium Chloride 1,000 ml @ 1,000 mls/hr Q1H PRN IV hypotension; Start 02/15/17 at 13:56; Stop 02/15/17 at 19:55; Status DC Sodium Chloride 1,000 ml @ 400 mls/hr Q2H30M PRN IV PATENCY; Start 02/15/17 at 13:56; Stop 02/16/17 at 01:55; Status DC Info (PHARMACY MONITORING -- do not chart) 1 each PRN DAILY PRN MC SEE COMMENTS ; Start 02/15/17 at 14:00; Status UNV Info (PHARMACY MONITORING -- do not chart) 1 each PRN DAILY PRN MC SEE COMMENTS ; Start 02/15/17 at 14:00 Albuterol Sulfate (Ventolin Neb Soln) 2.5 mg PRN Q4HRS PRN NEB SHORTNESS OF BREATH; Start 02/15/17 at 15:30 Vancomycin HCl 500 mg/Sodium Chloride 100 ml @ 100 mls/hr 1X ONCE IV Last administered on 02/16/17 17:41; Start 02/16/17 at 16:00; Stop 02/16/17 at 16:59 ; Status DC Sodium Chloride 1,000 ml @ 1,000 mls/hr Q1H PRN IV hypotension; Start 02/16/17 at 13:41; Stop 02/16/17 at 19:40; Status DC Sodium Chloride 1,000 ml @ 400 mls/hr Q2H30M PRN IV PATENCY; Start 02/16/17 at 13:41; Stop 02/17/17 at 01:40; Status DC Info (PHARMACY MONITORING -- do not chart) 1 each PRN DAILY PRN MC SEE COMMENTS ; Start 02/16/17 at 13:45 Vancomycin HCl 500 mg/Sodium Chloride 100 ml @ 100 mls/hr 1X ONCE IV ; Start 02/17/17 at 15:00; Stop 02/17/17 at 15:00; Status DC Sodium Chloride 1,000 ml @ 1,000 mls/hr Q1H PRN IV hypotension; Start 02/17/17 at 09:24; Stop 02/17/17 at 15:23 Sodium Chloride (Normal Saline Flush) 10 ml 1X PRN PRN IV AP catheter pack; Start 02/17/17 at 09:30; Stop 02/18/17 at 09:29 Sodium Chloride (Normal Saline Flush) 10 ml 1X PRN PRN IV MRI TECH catheter pack; Start 02/17/17 at 09:30; Stop 02/18/17 at 09:29 Sodium Chloride 1,000 ml @ 400 mls/hr Q2H30M PRN IV PATENCY; Start 02/17/17 at 09:24; Stop 02/17/17 at 21:23 Info (PHARMACY MONITORING -- do not chart) 1 each PRN DAILY PRN MC SEE COMMENTS ; Start 02/17/17 at 09:30 Albumin Human 100 ml @ 100 mls/hr 1X STAT IV Last administered on 02/17/17t 09:49; Start 02/17/17 at 09:35; Stop 02/17/17 at 10:34; Status DC Albumin Human 100 ml @ 100 mls/hr 1X ONCE IV Last administered on 02/17/17t 10:46; Start 02/17/17 at 10:45; Stop 02/17/17 at 11:44 Active Scripts Active Reported Lantus Solostar (Insulin Glargine,Hum.rec.anlog) 100 Unit/1 Ml Insuln.pen 22 Unit SQ QHS Droxia (Hydroxyurea) 200 Mg Capsule 200 Mg PO DAILY Feosol (Ferrous Sulfate) 325 Mg Tablet 325 Mg PO DAILY Coreg (Carvedilol) 12.5 Mg Tablet 1 Tab PO BID Bumetanide 2 Mg Tablet 2 Tab PO BID Aspir 81 (Aspirin) 81 Mg Tablet.dr 1 Tab PO DAILY Allopurinol 300 Mg Tablet 1 Tab PO DAILY Advair 250-50 Diskus (Fluticasone/Salmeterol) 1 Each Disk.w.dev 1 Puff IH Q12HR Zetia (Ezetimibe) 10 Mg Tablet 0.5 Tab PO DAILY Zemplar (Paricalcitol) 1 Mcg Capsule 1 Cap PO DAILY Sodium Bicarbonate 650 Mg Tablet 850 Mg PO BID Sensipar (Cinacalcet Hcl) 30 Mg Tablet 30 Mg PO QODAY Renvela (Sevelamer Carbonate) 800 Mg Tablet 2 Tab PO TID Proair Hfa Inhaler (Albuterol Sulfate) 8.5 Gm Hfa.aer.ad 2 Puff INH PRN Q4HRS PRN Omeprazole 40 Mg Capsule.dr 1 Cap PO DAILY Percocet 5-325 Mg Tablet (Oxycodone/Acetaminophen) 1 Each Tablet 1-2 Tab PO PRN Q6HRS PRN Novolog Flexpen (Insulin Aspart) 100 Unit/1 Ml Insuln.pen 15 Unit SQ DAILY Novolog Flexpen (Insulin Aspart) 100 Unit/1 Ml Insuln.pen 12 Unit SQ BIDACBL Norvasc (Amlodipine Besylate) 10 Mg Tablet 10 Mg PO DAILY Miralax (Polyethylene Glycol 3350) 17 Gm Powd.pack 1 Packet PO DAILY Lipitor (Atorvastatin Calcium) 40 Mg Tablet 1 Tab PO DAILY Lidocaine 1 Each Adh..patch 1 Each TP DAILY Vitals/I & O Vital Sign - Last 24 Hours 02/16/17 02/16/17 02/16/17 02/16/17 12:00 12:00 12:35 13:00 Temp 97.6 97.6 Pulse 94 110 Resp 15 15 B/P (MAP) 110/53 (72) 145/70 (95) Pulse Ox 100 100 99 O2 Delivery Room Air Room Air Room Air Room Air 02/16/17 02/16/17 02/16/17 02/16/17 14:00 15:00 16:00 16:00 Pulse 98 118 108 Resp 15 15 15 B/P (MAP) 132/68 (89) 108/66 (80) 161/78 (105) Pulse Ox 97 100 100 O2 Delivery Room Air Room Air Room Air Nasal Cannula O2 Flow Rate 2.0 02/16/17 02/16/17 02/16/17 02/16/17 16:47 17:00 18:00 19:00 Temp 97.3 97.3 Pulse 100 92 105 Resp 15 15 12 B/P (MAP) 98/59 (72) 120/57 (78) 132/69 (90) Pulse Ox 100 98 98 98 O2 Delivery Room Air Room Air Room Air Room Air 02/16/17 02/16/17 02/16/17 02/16/17 20:00 20:00 20:15 20:45 Temp 97.6 97.6 Pulse 97 Resp 10 12 12 B/P (MAP) 128/65 (86) Pulse Ox 97 98 100 O2 Delivery Room Air Nasal Cannula Nasal Cannula Nasal Cannula O2 Flow Rate 2.0 2.0 2.0 02/16/17 02/16/17 02/16/17 02/16/17 21:00 22:00 22:48 23:00 Pulse 92 76 102 Resp 12 20 12 12 B/P (MAP) 152/67 (95) 151/77 (101) 140/70 (93) Pulse Ox 98 98 98 98 O2 Delivery Room Air Room Air Nasal Cannula Room Air O2 Flow Rate 2.0 02/16/17 02/17/17 02/17/17 02/17/17 23:59 00:00 00:47 01:00 Temp 97.9 97.9 Pulse 95 99 Resp 10 12 10 B/P (MAP) 139/71 (93) 119/60 (79) Pulse Ox 98 98 98 O2 Delivery Nasal Cannula Room Air Nasal Cannula Room Air O2 Flow Rate 2.0 2.0 02/17/17 02/17/17 02/17/17 02/17/17 01:17 02:00 03:00 04:00 Temp 97.7 97.7 Pulse 92 90 90 Resp 10 10 12 10 B/P (MAP) 122/56 (78) 120/61 (80) 119/51 (73) Pulse Ox 100 100 100 95 O2 Delivery Nasal Cannula Room Air Room Air Room Air O2 Flow Rate 2.0 02/17/17 02/17/17 02/17/17 02/17/17 04:00 05:00 06:00 10:25 Pulse 106 114 Resp 12 8 B/P (MAP) 128/53 (78) 119/61 (80) Pulse Ox 96 98 98 O2 Delivery Nasal Cannula Room Air Room Air Nasal Cannula O2 Flow Rate 2.0 2.0 Nutrition Consultation Dietary Evaluation: Recommendations by RD: Increase Calorie Intake, PPN/TPN Comments: PPN/TPN if PO intake on liquid diet unable to meet > 75% needs Expected Outcomes/Goals: Initiation of nutrition within 24-48 hrs Interpretation of weight loss: >1-2% in 1 week Malnutrition Findings: Food and Nutrition Intake (Mod: <75% est energy req 7days Weight Status: Appropriate CESAR MERCHANT MD Feb 17, 2017 11:10
[2017-02-17] MEDS ORDERED: IOHEXOL 300 MG/ML 75 ML VIAL IV ONE (11:15)
[2017-02-17] MEDS: FAMOTIDINE 20 MG/2 ML VIAL IVP SCH ×2 (12:29→21:23)
[2017-02-17] MEDS: ONDANSETRON PF 4 MG/2 ML VIAL. IV PRN (12:29)
[2017-02-17] MEDS: MICAFUNGIN 100 MG in IV DEXTROSE 5% 100 ML IV SCH (12:30)
--- NOTE | 2017-02-17 13:02 | PDOC ---
SHUBHAM MIDDLETON TETRYL NITRATOR OPERATOR 02/17/17 1301: SURGICAL PROGRESS NOTE Subjective nausea, abdominal pain Vital Signs Vital Signs Date Time Temp Pulse Resp B/P (MAP) Pulse Ox O2 Delivery O2 Flow Rate FiO2 02/17/17 12:10 97.4 96 20 118/53 97.4 02/17/17 10:55 98 Nasal Cannula 2.0 General: Oriented X3, Cooperative, No acute distress Abdomen: Soft, Other (eccyhmosis to left abdomen, pd cath in place) Labs Laboratory Tests Test 02/15/17 13:01 02/15/17 16:58 02/16/17 05:10 02/16/17 05:18 Glucose (Fingerstick) 114 mg/dL (70-99) 141 mg/dL (70-99) Lactic Acid Level 2.7 mmol/L (0.4-2.0) White Blood Count 80.2 x10^3/uL (4.0-11.0) Red Blood Count 1.93 x10^6/uL (3.50-5.40) Hemoglobin 5.4 g/dL (12.0-15.5) Hematocrit 16.7 % (36.0-47.0) Mean Corpuscular Volume 86 fL (79-100) Mean Corpuscular Hemoglobin 28 pg (25-35) Mean Corpuscular Hemoglobin Concent 32 g/dL (31-37) Red Cell Distribution Width 21.6 % (11.5-14.5) Platelet Count 704 x10^3/uL (140-400) Neutrophils (%) (Auto) 96 % (31-73) Lymphocytes (%) (Auto) 2 % (24-48) Monocytes (%) (Auto) 1 % (0-9) Eosinophils (%) (Auto) 0 % (0-3) Basophils (%) (Auto) 1 % (0-3) Neutrophils # (Auto) 76.7 x10^3uL (1.8-7.7) Lymphocytes # (Auto) 1.7 x10^3/uL (1.0-4.8) Monocytes # (Auto) 0.9 x10^3/uL (0.0-1.1) Eosinophils # (Auto) 0.2 x10^3/uL (0.0-0.7) Basophils # (Auto) 0.7 x10^3/uL (0.0-0.2) Prothrombin Time 18.3 SEC (11.7-14.0) Prothromb Time International Ratio 1.6 (0.8-1.1) Fibrinogen 185 mg/dL (200-440) Sodium Level 138 mmol/L (136-145) Potassium Level 4.5 mmol/L (3.5-5.1) Chloride Level 101 mmol/L (98-107) Carbon Dioxide Level 26 mmol/L (21-32) Anion Gap 11 (6-14) Blood Urea Nitrogen 40 mg/dL (7-20) Creatinine 4.5 mg/dL (0.6-1.0) Estimated GFR (Cockcroft-Gault) 11.7 BUN/Creatinine Ratio 9 (6-20) Glucose Level 135 mg/dL (70-99) Calcium Level 7.5 mg/dL (8.5-10.1) Total Bilirubin 0.7 mg/dL (0.2-1.0) Aspartate Amino Transf (AST/SGOT) 63 U/L (15-37) Alanine Aminotransferase (ALT/SGPT) 18 U/L (14-59) Alkaline Phosphatase 124 U/L (46-116) Total Protein 5.1 g/dL (6.4-8.2) Albumin 2.4 g/dL (3.4-5.0) Albumin/Globulin Ratio 0.9 (1.0-1.7) Free Thyroxine 1.37 ng/dL (0.76-1.46) Free Triiodothyronine (T3) pg/mL 0.66 pg/mL (2.18-3.98) Random Vancomycin Level 14.4 mcg/mL Test 02/16/17 13:45 02/17/17 07:25 White Blood Count 81.3 x10^3/uL (4.0-11.0) 107.1 x10^3/uL (4.0-11.0) Red Blood Count 3.07 x10^6/uL (3.50-5.40) 2.52 x10^6/uL (3.50-5.40) Hemoglobin 8.6 g/dL (12.0-15.5) 7.0 g/dL (12.0-15.5) Hematocrit 27.1 % (36.0-47.0) 22.3 % (36.0-47.0) Mean Corpuscular Volume 88 fL (79-100) 89 fL (79-100) Mean Corpuscular Hemoglobin 28 pg (25-35) 28 pg (25-35) Mean Corpuscular Hemoglobin Concent 32 g/dL (31-37) 31 g/dL (31-37) Red Cell Distribution Width 17.2 % (11.5-14.5) 17.8 % (11.5-14.5) Platelet Count 518 x10^3/uL (140-400) 574 x10^3/uL (140-400) Neutrophils (%) (Auto) 97 % (31-73) Lymphocytes (%) (Auto) 1 % (24-48) Monocytes (%) (Auto) 1 % (0-9) Eosinophils (%) (Auto) 0 % (0-3) Basophils (%) (Auto) 1 % (0-3) Neutrophils # (Auto) 78.9 x10^3uL (1.8-7.7) Lymphocytes # (Auto) 1.1 x10^3/uL (1.0-4.8) Monocytes # (Auto) 0.6 x10^3/uL (0.0-1.1) Eosinophils # (Auto) 0.1 x10^3/uL (0.0-0.7) Basophils # (Auto) 0.6 x10^3/uL (0.0-0.2) Prothrombin Time 16.7 SEC (11.7-14.0) Prothromb Time International Ratio 1.4 (0.8-1.1) Fibrinogen 203 mg/dL (200-440) Sodium Level 136 mmol/L (136-145) Potassium Level 4.9 mmol/L (3.5-5.1) Chloride Level 99 mmol/L (98-107) Carbon Dioxide Level 23 mmol/L (21-32) Anion Gap 14 (6-14) Blood Urea Nitrogen 31 mg/dL (7-20) Creatinine 3.5 mg/dL (0.6-1.0) Estimated GFR (Cockcroft-Gault) 15.6 Glucose Level 198 mg/dL (70-99) Calcium Level 7.7 mg/dL (8.5-10.1) Laboratory Tests Test 02/16/17 13:45 02/17/17 07:25 White Blood Count 81.3 x10^3/uL (4.0-11.0) 107.1 x10^3/uL (4.0-11.0) Red Blood Count 3.07 x10^6/uL (3.50-5.40) 2.52 x10^6/uL (3.50-5.40) Hemoglobin 8.6 g/dL (12.0-15.5) 7.0 g/dL (12.0-15.5) Hematocrit 27.1 % (36.0-47.0) 22.3 % (36.0-47.0) Mean Corpuscular Volume 88 fL (79-100) 89 fL (79-100) Mean Corpuscular Hemoglobin 28 pg (25-35) 28 pg (25-35) Mean Corpuscular Hemoglobin Concent 32 g/dL (31-37) 31 g/dL (31-37) Red Cell Distribution Width 17.2 % (11.5-14.5) 17.8 % (11.5-14.5) Platelet Count 518 x10^3/uL (140-400) 574 x10^3/uL (140-400) Neutrophils (%) (Auto) 97 % (31-73) Lymphocytes (%) (Auto) 1 % (24-48) Monocytes (%) (Auto) 1 % (0-9) Eosinophils (%) (Auto) 0 % (0-3) Basophils (%) (Auto) 1 % (0-3) Neutrophils # (Auto) 78.9 x10^3uL (1.8-7.7) Lymphocytes # (Auto) 1.1 x10^3/uL (1.0-4.8) Monocytes # (Auto) 0.6 x10^3/uL (0.0-1.1) Eosinophils # (Auto) 0.1 x10^3/uL (0.0-0.7) Basophils # (Auto) 0.6 x10^3/uL (0.0-0.2) Prothrombin Time 16.7 SEC (11.7-14.0) Prothromb Time International Ratio 1.4 (0.8-1.1) Fibrinogen 203 mg/dL (200-440) Sodium Level 136 mmol/L (136-145) Potassium Level 4.9 mmol/L (3.5-5.1) Chloride Level 99 mmol/L (98-107) Carbon Dioxide Level 23 mmol/L (21-32) Anion Gap 14 (6-14) Blood Urea Nitrogen 31 mg/dL (7-20) Creatinine 3.5 mg/dL (0.6-1.0) Estimated GFR (Cockcroft-Gault) 15.6 Glucose Level 198 mg/dL (70-99) Calcium Level 7.7 mg/dL (8.5-10.1) Problem List Problems Medical Problems: (1) Anemia Status: Acute (2) Coagulopathy Status: Acute (3) Congestive heart failure Status: Acute (4) End stage renal disease Status: Acute (5) Hypoglycemia Status: Acute (6) Hypotension Status: Acute (7) Myelodysplastic syndrome Status: Acute Assessment/Plan rectus sheath hematoma hgb down to 7, from 8.6--CT is already ordered consider IR consult pending CT for possible embolization will review with Dr Westbrook Problems: FREDY WESTBROOK MD 02/17/17 1330: SURGICAL PROGRESS NOTE Assessment/Plan Pt seen and examined. Agree with Ms. Middleton's note Pt clinically seems stable and looks better then labs suggest abd soft, hematoma cont supportive care recommend against surgical intervention. Problems: SHUBHAM MIDDLETON APRN Feb 17, 2017 13:01 FREDY WESTBROOK MD Feb 17, 2017 13:30
[2017-02-17 14:01] LABS: NUCLEATED RBC 2; PLT ESTIMATE INCREASED (ADEQUATE); TOXIC GRANULATION MOD
[2017-02-17] MEDS ORDERED: VANCOMYCIN 500 MG in IV NORMAL SALINE 100ML 100 ML IV ONE (15:00)
[2017-02-17] MEDS: HYDROXYUREA 500 MG CAPSULE PO SCH (18:26)
[2017-02-18] VITALS (24 sets, daily range): BP systolic 83–169; BP diastolic 53–87
[2017-02-18] MEDS: PIPERACILLIN/TAZOBACTAM 2.25 GM in IV NORMAL SALINE 50ML 50 ML IV SCH ×3 (05:41→18:14)
[2017-02-18 06:18] LABS: BASO # 0.1 x10^3/uL (0.0-0.2); BASO % 0 % (0-3); EOS % 0 % (0-3); HEMATOCRIT 24.5 % (36.0-47.0); HEMOGLOBIN 8.1 g/dL (12.0-15.5); LYMPH # 0.5 x10^3/uL (1.0-4.8); LYMPH % 1 % (24-48); MEAN CORPUSCULAR HEMOGLOBIN 28 pg (25-35); MEAN CORPUSCULAR HGB CONC 33 g/dL (31-37); MEAN CORPUSCULAR VOLUME 86 fL (79-100); MONO % 1 % (0-9); NEUT % 98 % (31-73); PLATELET COUNT 360 x10^3/uL (140-400); RED BLOOD COUNT 2.84 x10^6/uL (3.50-5.40); RED CELL DISTRIBUTION WIDTH 16.3 % (11.5-14.5)
[2017-02-18 06:22] LABS: WHITE BLOOD COUNT 73.9 x10^3/uL (4.0-11.0)
[2017-02-18 06:36] LABS: CALCIUM 7.7 mg/dL (8.5-10.1); CREATININE 2.6 mg/dL (0.6-1.0); POTASSIUM 3.5 mmol/L (3.5-5.1)
[2017-02-18 08:01] LABS: % BASOS 1 % (0-3); NUCLEATED RBC 3
[2017-02-18 08:02] LABS: ANISOCYTOSIS PRESENT; PLT ESTIMATE ADEQUATE (ADEQUATE)
--- NOTE | 2017-02-18 08:02 | PDOC ---
PULMONARY PROGRESS NOTES Subjective on 02, sob better, more alert, no cough, no pain Vitals Vital Signs Date Time Temp Pulse Resp B/P (MAP) Pulse Ox O2 Delivery O2 Flow Rate FiO2 02/18/17 06:00 85 13 132/66 (88) 100 Nasal Cannula 2.0 02/18/17 04:00 98.1 98.1 ROS: No Nausea, No Chest Pain, No Abdominal Pain, No Increase Cough General: Alert Lungs: Crackles Cardiovascular: S1, S2 Abdomen: Soft, Non-tender Neuro Exam: Alert, Oriented Extremities: No Edema Skin: Warm Labs Laboratory Tests Test 02/16/17 13:45 02/17/17 07:25 02/18/17 05:45 02/18/17 05:46 White Blood Count 81.3 x10^3/uL (4.0-11.0) 107.1 x10^3/uL (4.0-11.0) 73.9 x10^3/uL (4.0-11.0) Red Blood Count 3.07 x10^6/uL (3.50-5.40) 2.52 x10^6/uL (3.50-5.40) 2.84 x10^6/uL (3.50-5.40) Hemoglobin 8.6 g/dL (12.0-15.5) 7.0 g/dL (12.0-15.5) 8.1 g/dL (12.0-15.5) Hematocrit 27.1 % (36.0-47.0) 22.3 % (36.0-47.0) 24.5 % (36.0-47.0) Mean Corpuscular Volume 88 fL (79-100) 89 fL (79-100) 86 fL (79-100) Mean Corpuscular Hemoglobin 28 pg (25-35) 28 pg (25-35) 28 pg (25-35) Mean Corpuscular Hemoglobin Concent 32 g/dL (31-37) 31 g/dL (31-37) 33 g/dL (31-37) Red Cell Distribution Width 17.2 % (11.5-14.5) 17.8 % (11.5-14.5) 16.3 % (11.5-14.5) Platelet Count 518 x10^3/uL (140-400) 574 x10^3/uL (140-400) 360 x10^3/uL (140-400) Neutrophils (%) (Auto) 97 % (31-73) 98 % (31-73) Lymphocytes (%) (Auto) 1 % (24-48) 1 % (24-48) Monocytes (%) (Auto) 1 % (0-9) 1 % (0-9) Eosinophils (%) (Auto) 0 % (0-3) 0 % (0-3) Basophils (%) (Auto) 1 % (0-3) 0 % (0-3) Neutrophils # (Auto) 78.9 x10^3uL (1.8-7.7) 72.3 x10^3uL (1.8-7.7) Lymphocytes # (Auto) 1.1 x10^3/uL (1.0-4.8) 0.5 x10^3/uL (1.0-4.8) Monocytes # (Auto) 0.6 x10^3/uL (0.0-1.1) 0.8 x10^3/uL (0.0-1.1) Eosinophils # (Auto) 0.1 x10^3/uL (0.0-0.7) 0.1 x10^3/uL (0.0-0.7) Basophils # (Auto) 0.6 x10^3/uL (0.0-0.2) 0.1 x10^3/uL (0.0-0.2) Prothrombin Time 16.7 SEC (11.7-14.0) Prothromb Time International Ratio 1.4 (0.8-1.1) Fibrinogen 203 mg/dL (200-440) Segmented Neutrophils % 87 % (35-66) Band Neutrophils % 13 % (0-9) Nucleated Red Blood Cells 2 Toxic Granulation Mod Platelet Estimate Increased (ADEQUATE) Giant Platelets Present Sodium Level 136 mmol/L (136-145) 136 mmol/L (136-145) Potassium Level 4.9 mmol/L (3.5-5.1) 3.5 mmol/L (3.5-5.1) Chloride Level 99 mmol/L (98-107) 97 mmol/L (98-107) Carbon Dioxide Level 23 mmol/L (21-32) 20 mmol/L (21-32) Anion Gap 14 (6-14) 19 (6-14) Blood Urea Nitrogen 31 mg/dL (7-20) 24 mg/dL (7-20) Creatinine 3.5 mg/dL (0.6-1.0) 2.6 mg/dL (0.6-1.0) Estimated GFR (Cockcroft-Gault) 15.6 22.0 Glucose Level 198 mg/dL (70-99) 163 mg/dL (70-99) Calcium Level 7.7 mg/dL (8.5-10.1) 7.7 mg/dL (8.5-10.1) Glucose (Fingerstick) 145 mg/dL (70-99) Laboratory Tests Test 02/18/17 05:45 02/18/17 05:46 White Blood Count 73.9 x10^3/uL (4.0-11.0) Red Blood Count 2.84 x10^6/uL (3.50-5.40) Hemoglobin 8.1 g/dL (12.0-15.5) Hematocrit 24.5 % (36.0-47.0) Mean Corpuscular Volume 86 fL (79-100) Mean Corpuscular Hemoglobin 28 pg (25-35) Mean Corpuscular Hemoglobin Concent 33 g/dL (31-37) Red Cell Distribution Width 16.3 % (11.5-14.5) Platelet Count 360 x10^3/uL (140-400) Neutrophils (%) (Auto) 98 % (31-73) Lymphocytes (%) (Auto) 1 % (24-48) Monocytes (%) (Auto) 1 % (0-9) Eosinophils (%) (Auto) 0 % (0-3) Basophils (%) (Auto) 0 % (0-3) Neutrophils # (Auto) 72.3 x10^3uL (1.8-7.7) Lymphocytes # (Auto) 0.5 x10^3/uL (1.0-4.8) Monocytes # (Auto) 0.8 x10^3/uL (0.0-1.1) Eosinophils # (Auto) 0.1 x10^3/uL (0.0-0.7) Basophils # (Auto) 0.1 x10^3/uL (0.0-0.2) Sodium Level 136 mmol/L (136-145) Potassium Level 3.5 mmol/L (3.5-5.1) Chloride Level 97 mmol/L (98-107) Carbon Dioxide Level 20 mmol/L (21-32) Anion Gap 19 (6-14) Blood Urea Nitrogen 24 mg/dL (7-20) Creatinine 2.6 mg/dL (0.6-1.0) Estimated GFR (Cockcroft-Gault) 22.0 Glucose Level 163 mg/dL (70-99) Calcium Level 7.7 mg/dL (8.5-10.1) Glucose (Fingerstick) 145 mg/dL (70-99) Medications Active Scripts Medications Dose Route/Sig Max Daily Dose Days Date Category Lantus Solostar (Insulin Glargine,Hum.rec.anlog) 100 Unit/1 Ml Insuln.pen 22 Unit SQ QHS 02/15/17 Reported Droxia (Hydroxyurea) 200 Mg Capsule 200 Mg PO DAILY 02/15/17 Reported Feosol (Ferrous Sulfate) 325 Mg Tablet 325 Mg PO DAILY 02/15/17 Reported Coreg (Carvedilol) 12.5 Mg Tablet 1 Tab PO BID 02/15/17 Reported Bumetanide 2 Mg Tablet 2 Tab PO BID 02/15/17 Reported Aspir 81 (Aspirin) 81 Mg Tablet.dr 1 Tab PO DAILY 02/15/17 Reported Allopurinol 300 Mg Tablet 1 Tab PO DAILY 02/15/17 Reported Advair 250-50 Diskus (Fluticasone/Salmeterol) 1 Each Disk.w.dev 1 Puff IH Q12HR 02/15/17 Reported Zetia (Ezetimibe) 10 Mg Tablet 0.5 Tab PO DAILY 02/15/17 Reported Zemplar (Paricalcitol) 1 Mcg Capsule 1 Cap PO DAILY 02/15/17 Reported Sodium Bicarbonate 650 Mg Tablet 850 Mg PO BID 02/15/17 Reported Sensipar (Cinacalcet Hcl) 30 Mg Tablet 30 Mg PO QODAY 02/15/17 Reported Renvela (Sevelamer Carbonate) 800 Mg Tablet 2 Tab PO TID 02/15/17 Reported Proair Hfa Inhaler (Albuterol Sulfate) 8.5 Gm Hfa.aer.ad 2 Puff INH PRN Q4HRS PRN 02/15/17 Reported Omeprazole 40 Mg Capsule.dr 1 Cap PO DAILY 02/15/17 Reported Percocet 5-325 Mg Tablet (Oxycodone/Acetaminophen) 1 Each Tablet 1-2 Tab PO PRN Q6HRS PRN 02/15/17 Reported Novolog Flexpen (Insulin Aspart) 100 Unit/1 Ml Insuln.pen 15 Unit SQ DAILY 02/15/17 Reported Novolog Flexpen (Insulin Aspart) 100 Unit/1 Ml Insuln.pen 12 Unit SQ BIDACBL 02/15/17 Reported Norvasc (Amlodipine Besylate) 10 Mg Tablet 10 Mg PO DAILY 02/15/17 Reported Miralax (Polyethylene Glycol 3350) 17 Gm Powd.pack 1 Packet PO DAILY 02/15/17 Reported Lipitor (Atorvastatin Calcium) 40 Mg Tablet 1 Tab PO DAILY 02/15/17 Reported Lidocaine 1 Each Adh..patch 1 Each TP DAILY 02/15/17 Reported Impression . 1. Abnormal CT of the abdomen revealing some basilar opacities, suspect mostly atelectasis. 2. Asthma. 3. Sepsis present upon admission. 4. Hypothermia. 5. Leukocytosis. 6. Lactic acidosis. 7. Chronic kidney disease, status post recent catheter for dialysis. 8. Acute toxic metabolic encephalopathy. 9. Diabetes. 10. Polycythemia. 11. Intraabdominal hematoma. Plan . 02 titration PRN NEBS TPN 1. RESP STATUS COMPENSATED 2. Antibiotics for sepsis per ID. 3. Follow Nephrology input. 4. Follow hem input 5. Intraabdominal hematoma. monitor resp status closely discussed ALBA Hanna rn, MD Feb 18, 2017 08:02
[2017-02-18 08:05] LABS: POLYCHROMASIA PRESENT; TOXIC GRANULATION SLIGHT; TOXIC VACUOLATION PRESENT
[2017-02-18] MEDS: TPN PER PHARMACY MC PRN (08:13)
--- NOTE | 2017-02-18 09:06 | PDOC ---
Infectious Disease Note Subjective Subjective Comfortable, denies pain Supplemental O2 ROS ROS GEN: Denies fevers, chills, sweats CV: Denies chest pain RESP: Denies shortness of air, cough GI: Denies n/v/d Vital Sign Vital Signs Vital Signs Date Time Temp Pulse Resp B/P (MAP) Pulse Ox O2 Delivery O2 Flow Rate FiO2 02/18/17 08:00 98.2 89 19 140/64 (89) 100 Nasal Cannula 2.0 98.2 Physical Exam PHYSICAL EXAM GENERAL: Awake, NAD HEENT: OC/OP pink and moist. [place] NECK: Supple LUNGS: Clear HEART: S1S2, no gallop, no murmur ABD: Distended, BS present, soft, NT, PDC intact EXT: BLE trace edema, no cyanosis [employer]: Awake, answers appropriately SKIN: No rash LIJ temp HDC. (02/15). clean Labs Lab Laboratory Tests Test 02/18/17 05:45 02/18/17 05:46 White Blood Count 73.9 x10^3/uL (4.0-11.0) Red Blood Count 2.84 x10^6/uL (3.50-5.40) Hemoglobin 8.1 g/dL (12.0-15.5) Hematocrit 24.5 % (36.0-47.0) Mean Corpuscular Volume 86 fL (79-100) Mean Corpuscular Hemoglobin 28 pg (25-35) Mean Corpuscular Hemoglobin Concent 33 g/dL (31-37) Red Cell Distribution Width 16.3 % (11.5-14.5) Platelet Count 360 x10^3/uL (140-400) Neutrophils (%) (Auto) 98 % (31-73) Lymphocytes (%) (Auto) 1 % (24-48) Monocytes (%) (Auto) 1 % (0-9) Eosinophils (%) (Auto) 0 % (0-3) Basophils (%) (Auto) 0 % (0-3) Neutrophils # (Auto) 72.3 x10^3uL (1.8-7.7) Lymphocytes # (Auto) 0.5 x10^3/uL (1.0-4.8) Monocytes # (Auto) 0.8 x10^3/uL (0.0-1.1) Eosinophils # (Auto) 0.1 x10^3/uL (0.0-0.7) Basophils # (Auto) 0.1 x10^3/uL (0.0-0.2) Segmented Neutrophils % 90 % (35-66) Band Neutrophils % 7 % (0-9) Lymphocytes % 2 % (24-48) Basophils % 1 % (0-3) Nucleated Red Blood Cells 3 Toxic Granulation Slight Toxic Vacuolation Present Platelet Estimate Adequate (ADEQUATE) Large Platelets Present Polychromasia Present Anisocytosis Present Sodium Level 136 mmol/L (136-145) Potassium Level 3.5 mmol/L (3.5-5.1) Chloride Level 97 mmol/L (98-107) Carbon Dioxide Level 20 mmol/L (21-32) Anion Gap 19 (6-14) Blood Urea Nitrogen 24 mg/dL (7-20) Creatinine 2.6 mg/dL (0.6-1.0) Estimated GFR (Cockcroft-Gault) 22.0 Glucose Level 163 mg/dL (70-99) Calcium Level 7.7 mg/dL (8.5-10.1) Glucose (Fingerstick) 145 mg/dL (70-99) Micro BLOOD CULTURE Preliminary NO GROWTH AFTER 3 DAYS Abdominal fluid ANAEROBIC-AEROBIC CULTURE Preliminary Preliminary report ANAEROBIC RES 1 Preliminary No anaerobes recovered in 48 hours. AEROBIC CULT Final Final report AEROBIC RES 1 Final No growth in 48 hours. Objective Assessment Sepsis - POA (hypothermia/leukocytosis/lactic acidosis). Procalcitonin mild elevation 1.98 02/15. cults neg Leukocytosis - in part reactive to bleed and transfusions/myelofibrosis. Better Elevated TSH - ? euthyroid. T4 ok Abd hematoma - Possibly infected - cult negative CKD - needing PD but not yet started (states PD cath placed 02/09). 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 The chart was reviewed. The case was discussed. Agree with the plan of care. ORLY VANCE APRN Feb 18, 2017 09:05 JOSHUA GRANT MD Feb 18, 2017 13:54
--- NOTE | 2017-02-18 09:12 | PDOC ---
SURGICAL PROGRESS NOTE Subjective Pt more comfortable today, did not tolerate tube feeds Vital Signs Vital Signs Date Time Temp Pulse Resp B/P (MAP) Pulse Ox O2 Delivery O2 Flow Rate FiO2 02/18/17 09:00 84 13 152/66 (94) 94 Nasal Cannula 2.0 02/18/17 08:00 98.2 98.2 General: Alert, Cooperative, No acute distress Abdomen: Soft, Other (TTP over hematoma) Labs Laboratory Tests Test 02/16/17 13:45 02/17/17 07:25 02/18/17 05:45 02/18/17 05:46 White Blood Count 81.3 x10^3/uL (4.0-11.0) 107.1 x10^3/uL (4.0-11.0) 73.9 x10^3/uL (4.0-11.0) Red Blood Count 3.07 x10^6/uL (3.50-5.40) 2.52 x10^6/uL (3.50-5.40) 2.84 x10^6/uL (3.50-5.40) Hemoglobin 8.6 g/dL (12.0-15.5) 7.0 g/dL (12.0-15.5) 8.1 g/dL (12.0-15.5) Hematocrit 27.1 % (36.0-47.0) 22.3 % (36.0-47.0) 24.5 % (36.0-47.0) Mean Corpuscular Volume 88 fL (79-100) 89 fL (79-100) 86 fL (79-100) Mean Corpuscular Hemoglobin 28 pg (25-35) 28 pg (25-35) 28 pg (25-35) Mean Corpuscular Hemoglobin Concent 32 g/dL (31-37) 31 g/dL (31-37) 33 g/dL (31-37) Red Cell Distribution Width 17.2 % (11.5-14.5) 17.8 % (11.5-14.5) 16.3 % (11.5-14.5) Platelet Count 518 x10^3/uL (140-400) 574 x10^3/uL (140-400) 360 x10^3/uL (140-400) Neutrophils (%) (Auto) 97 % (31-73) 98 % (31-73) Lymphocytes (%) (Auto) 1 % (24-48) 1 % (24-48) Monocytes (%) (Auto) 1 % (0-9) 1 % (0-9) Eosinophils (%) (Auto) 0 % (0-3) 0 % (0-3) Basophils (%) (Auto) 1 % (0-3) 0 % (0-3) Neutrophils # (Auto) 78.9 x10^3uL (1.8-7.7) 72.3 x10^3uL (1.8-7.7) Lymphocytes # (Auto) 1.1 x10^3/uL (1.0-4.8) 0.5 x10^3/uL (1.0-4.8) Monocytes # (Auto) 0.6 x10^3/uL (0.0-1.1) 0.8 x10^3/uL (0.0-1.1) Eosinophils # (Auto) 0.1 x10^3/uL (0.0-0.7) 0.1 x10^3/uL (0.0-0.7) Basophils # (Auto) 0.6 x10^3/uL (0.0-0.2) 0.1 x10^3/uL (0.0-0.2) Prothrombin Time 16.7 SEC (11.7-14.0) Prothromb Time International Ratio 1.4 (0.8-1.1) Fibrinogen 203 mg/dL (200-440) Segmented Neutrophils % 87 % (35-66) 90 % (35-66) Band Neutrophils % 13 % (0-9) 7 % (0-9) Nucleated Red Blood Cells 2 3 Toxic Granulation Mod Slight Platelet Estimate Increased (ADEQUATE) Adequate (ADEQUATE) Giant Platelets Present Sodium Level 136 mmol/L (136-145) 136 mmol/L (136-145) Potassium Level 4.9 mmol/L (3.5-5.1) 3.5 mmol/L (3.5-5.1) Chloride Level 99 mmol/L (98-107) 97 mmol/L (98-107) Carbon Dioxide Level 23 mmol/L (21-32) 20 mmol/L (21-32) Anion Gap 14 (6-14) 19 (6-14) Blood Urea Nitrogen 31 mg/dL (7-20) 24 mg/dL (7-20) Creatinine 3.5 mg/dL (0.6-1.0) 2.6 mg/dL (0.6-1.0) Estimated GFR (Cockcroft-Gault) 15.6 22.0 Glucose Level 198 mg/dL (70-99) 163 mg/dL (70-99) Calcium Level 7.7 mg/dL (8.5-10.1) 7.7 mg/dL (8.5-10.1) Lymphocytes % 2 % (24-48) Basophils % 1 % (0-3) Toxic Vacuolation Present Large Platelets Present Polychromasia Present Anisocytosis Present Glucose (Fingerstick) 145 mg/dL (70-99) Laboratory Tests Test 02/18/17 05:45 02/18/17 05:46 White Blood Count 73.9 x10^3/uL (4.0-11.0) Red Blood Count 2.84 x10^6/uL (3.50-5.40) Hemoglobin 8.1 g/dL (12.0-15.5) Hematocrit 24.5 % (36.0-47.0) Mean Corpuscular Volume 86 fL (79-100) Mean Corpuscular Hemoglobin 28 pg (25-35) Mean Corpuscular Hemoglobin Concent 33 g/dL (31-37) Red Cell Distribution Width 16.3 % (11.5-14.5) Platelet Count 360 x10^3/uL (140-400) Neutrophils (%) (Auto) 98 % (31-73) Lymphocytes (%) (Auto) 1 % (24-48) Monocytes (%) (Auto) 1 % (0-9) Eosinophils (%) (Auto) 0 % (0-3) Basophils (%) (Auto) 0 % (0-3) Neutrophils # (Auto) 72.3 x10^3uL (1.8-7.7) Lymphocytes # (Auto) 0.5 x10^3/uL (1.0-4.8) Monocytes # (Auto) 0.8 x10^3/uL (0.0-1.1) Eosinophils # (Auto) 0.1 x10^3/uL (0.0-0.7) Basophils # (Auto) 0.1 x10^3/uL (0.0-0.2) Segmented Neutrophils % 90 % (35-66) Band Neutrophils % 7 % (0-9) Lymphocytes % 2 % (24-48) Basophils % 1 % (0-3) Nucleated Red Blood Cells 3 Toxic Granulation Slight Toxic Vacuolation Present Platelet Estimate Adequate (ADEQUATE) Large Platelets Present Polychromasia Present Anisocytosis Present Sodium Level 136 mmol/L (136-145) Potassium Level 3.5 mmol/L (3.5-5.1) Chloride Level 97 mmol/L (98-107) Carbon Dioxide Level 20 mmol/L (21-32) Anion Gap 19 (6-14) Blood Urea Nitrogen 24 mg/dL (7-20) Creatinine 2.6 mg/dL (0.6-1.0) Estimated GFR (Cockcroft-Gault) 22.0 Glucose Level 163 mg/dL (70-99) Calcium Level 7.7 mg/dL (8.5-10.1) Glucose (Fingerstick) 145 mg/dL (70-99) Problem List Problems Medical Problems: (1) Anemia Status: Acute (2) Coagulopathy Status: Acute (3) Congestive heart failure Status: Acute (4) End stage renal disease Status: Acute (5) Hypoglycemia Status: Acute (6) Hypotension Status: Acute (7) Myelodysplastic syndrome Status: Acute Assessment/Plan abd hematoma cont supportive care, appears to be improving no plans to remove PD cath, but would not plan on using this Problems: FREDY DENNIS MD Feb 18, 2017 09:12
[2017-02-18] MEDS ORDERED: IOHEXOL 300 MG/ML 75 ML VIAL IV ONE (09:30)
[2017-02-18] MEDS ORDERED: IV NORMAL SALINE 1000ML BAG 1,000 ML IV PRN ×2 (10:09)
[2017-02-18] MEDS ORDERED: DIALYSIS PATIENT. MC PRN ×2 (10:15)
[2017-02-18] MEDS ORDERED: ALBUMIN HUMAN 25% 200 ML IV PRN (10:15)
--- NOTE | 2017-02-18 10:29 | RAD ---
CT abdomen/pelvis with contrast 02/18/2017 at 0937 hours Indication: Follow-up abscess. History of breast cancer and renal failure. Comparison: CT abdomen/pelvis 02/14/2017 Technique: Multiple axial CT images of the abdomen and pelvis were obtained after the administration of 75 mL Omnipaque 300. Coronal and sagittal reformats are provided. Findings: There is bibasilar subsegmental atelectasis. Heart size is borderline enlarged. Nasogastric tube is identified coursing below the diaphragm and terminating within the gastric lumen. Evaluation of the solid abdominal viscera is limited by lack of intravenous contrast. Evaluation of the bowel is limited by lack of oral contrast. There is minimal heterogeneous hypoattenuation along the inferior right hepatic lobe which is favored to be secondary to streak artifact, however a parenchymal lesion cannot be excluded. There is a new 3.6 x 3.2 cm hypodense splenic lesion as well as an additional 11 mm inferior splenic lesion. Bilateral adrenal glands are within normal limits. Gallbladder is present and mildly distended measuring 4.6 cm in diameter. Pancreas is within normal limits. Abdominal aorta is normal in course and caliber with scattered atherosclerotic calcification. Evaluation for abdominal lymphadenopathy is limited by lack of intravenous contrast. There is a peritoneal dialysis catheter centered within the lower mid abdomen extending from ventral abdominal wall. There is a gas containing fluid collection within the pelvis measuring approximately 8.7 x 6.1 x 8.5 cm, previously measuring 6.0 x 4.8 x 5.5 cm (previously more simple appearing without gas). It is difficult to assess the adjacent structures given the lack of IV and oral contrast. Suspect bowel loops or blood products adjacent to this collection in the left mid pelvis. There is a 17 mm mass in the midpole the right kidney which is indeterminate. Cystic lesions are identified in the left kidney March are stable. There is a 5 mm parenchymal calcification in the superior pole the left kidney. There is no hydronephrosis. Moderate to large stool burden. No dilated loops of small or large bowel are identified. There is a left rectus sheath hematoma which appears slightly larger in the AP dimension when compared to prior examination, currently measuring 4.8 x 6.4 cm and previously measuring 4.0 x 6.2 cm one measured in similar dimensions. There is suggestion of a trace free fluid within the dependent portions of the pelvis. Mixed attenuation is noted throughout the left hemipelvis which may represent sequela of prior hematoma with redistribution of blood products in the interim. Evaluation of the pelvis is limited by lack of contrast. There is diffuse anasarca. No suspicious osseous lesions are identified. Impression: 1. There is a peritoneal dialysis catheter coiled within the lower mid abdomen. There is interval increase in a now gas containing collection inferior to the pigtail catheter previously measuring approximately 6.0 x 4.8 x 5.5 cm and currently measuring approximately 8.7 x 6.1 x 8.5 cm. Recommend correlation with blood cultures. 2. New hypoattenuating lesions within the spleen measuring up to 3.6 x 3.2 cm are favored to represent splenic abscesses. 3. Increasing ill-defined hypoattenuation in the inferior right hepatic lobe may represent a developing intrahepatic abscess versus streak artifact. Recommend contrast-enhanced examination for follow-up. 4. Interval mild increase in a left rectus sheath hematoma. 5. 17 mm indeterminate mass in the midpole the right kidney. Recommend contrast-enhanced examination or abdominal MRI for further evaluation. Critical results were discussed with Jenn, the patient's nurse at 10:25 AM on 02/18/[address] Fajardo. PQRS Compliance Statement: One or more of the following individualized dose reduction techniques were utilized for this examination: 1. Automated exposure control 2. Adjustment of the mA and/or kV according to patient size 3. Use of iterative reconstruction technique
--- NOTE | 2017-02-18 10:48 | PDOC ---
Dialysis Progress Note Dialysis Note Dialysis Note Seen on Hemodialysis, tolerating treatment Okay so far Vitals on Hemodialysis: 144/67 89 afeb General Appearance: Awake: Alert Oriented x 3 Neck: No JVD or JVP Chest: CTA Anibal Heart: S1 S2 Abdomen - Soft NTND Extremities - No Edema ESRD : Dialysis as below F 180 NR 3.5 Hrs 4 K 2.5 Ca 140 Na 40 HC03 Qb 350 + Qd 500+ Heparin 0 Units Uf 2 Kgs or to dry weight as tolerated May give 25-50 gms of 25% Albumin if needed to maintain Hemodynamic stability Treatment plan reviewed and discussed with progress man Vitals Vital Signs Vital Signs Date Time Temp Pulse Resp B/P (MAP) Pulse Ox O2 Delivery O2 Flow Rate FiO2 02/18/17 10:00 87 16 154/64 (94) 97 Room Air 02/18/17 08:00 98.2 98.2 Labs Last Labs Laboratory Tests Test 02/16/17 13:45 02/17/17 07:25 02/18/17 05:45 02/18/17 05:46 White Blood Count 81.3 x10^3/uL (4.0-11.0) 107.1 x10^3/uL (4.0-11.0) 73.9 x10^3/uL (4.0-11.0) Red Blood Count 3.07 x10^6/uL (3.50-5.40) 2.52 x10^6/uL (3.50-5.40) 2.84 x10^6/uL (3.50-5.40) Hemoglobin 8.6 g/dL (12.0-15.5) 7.0 g/dL (12.0-15.5) 8.1 g/dL (12.0-15.5) Hematocrit 27.1 % (36.0-47.0) 22.3 % (36.0-47.0) 24.5 % (36.0-47.0) Mean Corpuscular Volume 88 fL (79-100) 89 fL (79-100) 86 fL (79-100) Mean Corpuscular Hemoglobin 28 pg (25-35) 28 pg (25-35) 28 pg (25-35) Mean Corpuscular Hemoglobin Concent 32 g/dL (31-37) 31 g/dL (31-37) 33 g/dL (31-37) Red Cell Distribution Width 17.2 % (11.5-14.5) 17.8 % (11.5-14.5) 16.3 % (11.5-14.5) Platelet Count 518 x10^3/uL (140-400) 574 x10^3/uL (140-400) 360 x10^3/uL (140-400) Neutrophils (%) (Auto) 97 % (31-73) 98 % (31-73) Lymphocytes (%) (Auto) 1 % (24-48) 1 % (24-48) Monocytes (%) (Auto) 1 % (0-9) 1 % (0-9) Eosinophils (%) (Auto) 0 % (0-3) 0 % (0-3) Basophils (%) (Auto) 1 % (0-3) 0 % (0-3) Neutrophils # (Auto) 78.9 x10^3uL (1.8-7.7) 72.3 x10^3uL (1.8-7.7) Lymphocytes # (Auto) 1.1 x10^3/uL (1.0-4.8) 0.5 x10^3/uL (1.0-4.8) Monocytes # (Auto) 0.6 x10^3/uL (0.0-1.1) 0.8 x10^3/uL (0.0-1.1) Eosinophils # (Auto) 0.1 x10^3/uL (0.0-0.7) 0.1 x10^3/uL (0.0-0.7) Basophils # (Auto) 0.6 x10^3/uL (0.0-0.2) 0.1 x10^3/uL (0.0-0.2) Prothrombin Time 16.7 SEC (11.7-14.0) Prothromb Time International Ratio 1.4 (0.8-1.1) Fibrinogen 203 mg/dL (200-440) Segmented Neutrophils % 87 % (35-66) 90 % (35-66) Band Neutrophils % 13 % (0-9) 7 % (0-9) Nucleated Red Blood Cells 2 3 Toxic Granulation Mod Slight Platelet Estimate Increased (ADEQUATE) Adequate (ADEQUATE) Giant Platelets Present Sodium Level 136 mmol/L (136-145) 136 mmol/L (136-145) Potassium Level 4.9 mmol/L (3.5-5.1) 3.5 mmol/L (3.5-5.1) Chloride Level 99 mmol/L (98-107) 97 mmol/L (98-107) Carbon Dioxide Level 23 mmol/L (21-32) 20 mmol/L (21-32) Anion Gap 14 (6-14) 19 (6-14) Blood Urea Nitrogen 31 mg/dL (7-20) 24 mg/dL (7-20) Creatinine 3.5 mg/dL (0.6-1.0) 2.6 mg/dL (0.6-1.0) Estimated GFR (Cockcroft-Gault) 15.6 22.0 Glucose Level 198 mg/dL (70-99) 163 mg/dL (70-99) Calcium Level 7.7 mg/dL (8.5-10.1) 7.7 mg/dL (8.5-10.1) Lymphocytes % 2 % (24-48) Basophils % 1 % (0-3) Toxic Vacuolation Present Large Platelets Present Polychromasia Present Anisocytosis Present Glucose (Fingerstick) 145 mg/dL (70-99) Laboratory Tests Test 02/18/17 05:45 02/18/17 05:46 White Blood Count 73.9 x10^3/uL (4.0-11.0) Red Blood Count 2.84 x10^6/uL (3.50-5.40) Hemoglobin 8.1 g/dL (12.0-15.5) Hematocrit 24.5 % (36.0-47.0) Mean Corpuscular Volume 86 fL (79-100) Mean Corpuscular Hemoglobin 28 pg (25-35) Mean Corpuscular Hemoglobin Concent 33 g/dL (31-37) Red Cell Distribution Width 16.3 % (11.5-14.5) Platelet Count 360 x10^3/uL (140-400) Neutrophils (%) (Auto) 98 % (31-73) Lymphocytes (%) (Auto) 1 % (24-48) Monocytes (%) (Auto) 1 % (0-9) Eosinophils (%) (Auto) 0 % (0-3) Basophils (%) (Auto) 0 % (0-3) Neutrophils # (Auto) 72.3 x10^3uL (1.8-7.7) Lymphocytes # (Auto) 0.5 x10^3/uL (1.0-4.8) Monocytes # (Auto) 0.8 x10^3/uL (0.0-1.1) Eosinophils # (Auto) 0.1 x10^3/uL (0.0-0.7) Basophils # (Auto) 0.1 x10^3/uL (0.0-0.2) Segmented Neutrophils % 90 % (35-66) Band Neutrophils % 7 % (0-9) Lymphocytes % 2 % (24-48) Basophils % 1 % (0-3) Nucleated Red Blood Cells 3 Toxic Granulation Slight Toxic Vacuolation Present Platelet Estimate Adequate (ADEQUATE) Large Platelets Present Polychromasia Present Anisocytosis Present Sodium Level 136 mmol/L (136-145) Potassium Level 3.5 mmol/L (3.5-5.1) Chloride Level 97 mmol/L (98-107) Carbon Dioxide Level 20 mmol/L (21-32) Anion Gap 19 (6-14) Blood Urea Nitrogen 24 mg/dL (7-20) Creatinine 2.6 mg/dL (0.6-1.0) Estimated GFR (Cockcroft-Gault) 22.0 Glucose Level 163 mg/dL (70-99) Calcium Level 7.7 mg/dL (8.5-10.1) Glucose (Fingerstick) 145 mg/dL (70-99) Assessment Assessment Problems Medical Problems: (1) Anemia Status: Acute (2) Coagulopathy Status: Acute (3) Congestive heart failure Status: Acute (4) End stage renal disease Status: Acute (5) Hypoglycemia Status: Acute (6) Hypotension Status: Acute (7) Myelodysplastic syndrome Status: Acute Problems: Plan Plan of Care Problems Medical Problems: (1) Anemia Status: Acute (2) Coagulopathy Status: Acute (3) Congestive heart failure Status: Acute (4) End stage renal disease Status: Acute (5) Hypoglycemia Status: Acute (6) Hypotension Status: Acute (7) Myelodysplastic syndrome Status: Acute MARJAN GRANT MD Feb 18, 2017 10:48
--- NOTE | 2017-02-18 11:44 | PDOC ---
PROGRESS NOTES Chief Complaint Chief Complaint 1. Severe Anemia 2., Hx MDS with WBC 80K 3. Severe thormbocytosis- likely from the anemia 4. ESRD recent PD cath insertion [facility] last week 5. TJ on ESRD 6. Elevated LFTs, alk phos in the background of severe hypotension and MDS 7. Hypotensive shock, hemorrhagic? anemia? SIRS vs sepsis 8. Elevated INR 9. Abd pain 10. Hypothermia, hypoglycemia 11. Acute metabolic enceph History of Present Illness History of Present Illness Pt seen in ICU. Pt laying in bed while receiving dialysis. Discussed current tx plan with pt Vitals Vitals Vital Signs Date Time Temp Pulse Resp B/P (MAP) Pulse Ox O2 Delivery O2 Flow Rate FiO2 02/18/17 11:00 84 14 115/64 (81) 99 Room Air 02/18/17 10:00 02/18/17 08:00 98.2 98.2 Physical Exam General: Alert, Cooperative, No acute distress Heart: Normal S1, Normal S2 Lungs: Crackles Abdomen: Soft, Other (TTP over hematoma) Extremities: No clubbing, No cyanosis Skin: No rashes, No significant lesion Labs LABS Laboratory Tests Test 02/18/17 05:45 02/18/17 05:46 White Blood Count 73.9 x10^3/uL (4.0-11.0) Red Blood Count 2.84 x10^6/uL (3.50-5.40) Hemoglobin 8.1 g/dL (12.0-15.5) Hematocrit 24.5 % (36.0-47.0) Mean Corpuscular Volume 86 fL (79-100) Mean Corpuscular Hemoglobin 28 pg (25-35) Mean Corpuscular Hemoglobin Concent 33 g/dL (31-37) Red Cell Distribution Width 16.3 % (11.5-14.5) Platelet Count 360 x10^3/uL (140-400) Neutrophils (%) (Auto) 98 % (31-73) Lymphocytes (%) (Auto) 1 % (24-48) Monocytes (%) (Auto) 1 % (0-9) Eosinophils (%) (Auto) 0 % (0-3) Basophils (%) (Auto) 0 % (0-3) Neutrophils # (Auto) 72.3 x10^3uL (1.8-7.7) Lymphocytes # (Auto) 0.5 x10^3/uL (1.0-4.8) Monocytes # (Auto) 0.8 x10^3/uL (0.0-1.1) Eosinophils # (Auto) 0.1 x10^3/uL (0.0-0.7) Basophils # (Auto) 0.1 x10^3/uL (0.0-0.2) Segmented Neutrophils % 90 % (35-66) Band Neutrophils % 7 % (0-9) Lymphocytes % 2 % (24-48) Basophils % 1 % (0-3) Nucleated Red Blood Cells 3 Toxic Granulation Slight Toxic Vacuolation Present Platelet Estimate Adequate (ADEQUATE) Large Platelets Present Polychromasia Present Anisocytosis Present Sodium Level 136 mmol/L (136-145) Potassium Level 3.5 mmol/L (3.5-5.1) Chloride Level 97 mmol/L (98-107) Carbon Dioxide Level 20 mmol/L (21-32) Anion Gap 19 (6-14) Blood Urea Nitrogen 24 mg/dL (7-20) Creatinine 2.6 mg/dL (0.6-1.0) Estimated GFR (Cockcroft-Gault) 22.0 Glucose Level 163 mg/dL (70-99) Calcium Level 7.7 mg/dL (8.5-10.1) Glucose (Fingerstick) 145 mg/dL (70-99) Review of Systems Review of Systems c/o fatigue c/o hunger Assessment and Plan Assessmemt and Plan 1. Severe Anemia 2., Hx MDS with WBC 80K 3. Severe thormbocytosis- likely from the anemia 4. ESRD recent PD cath insertion [facility] last week 5. TJ on ESRD 6. Elevated LFTs, alk phos in the background of severe hypotension and MDS 7. Hypotensive shock, hemorrhagic? anemia? SIRS vs sepsis 8. Elevated INR 9. Abd pain 10. Hypothermia, hypoglycemia 11. Acute metabolic encephalopathy: resolved Plan Pt seen in ICU Continue dialysis Daily labs Continue Abx Problems: Comment Review of Relevant I have reviewed the following items laure (where applicable) has been applied. Labs Laboratory Tests Test 02/16/17 13:45 02/17/17 07:25 02/18/17 05:45 02/18/17 05:46 White Blood Count 81.3 x10^3/uL (4.0-11.0) 107.1 x10^3/uL (4.0-11.0) 73.9 x10^3/uL (4.0-11.0) Red Blood Count 3.07 x10^6/uL (3.50-5.40) 2.52 x10^6/uL (3.50-5.40) 2.84 x10^6/uL (3.50-5.40) Hemoglobin 8.6 g/dL (12.0-15.5) 7.0 g/dL (12.0-15.5) 8.1 g/dL (12.0-15.5) Hematocrit 27.1 % (36.0-47.0) 22.3 % (36.0-47.0) 24.5 % (36.0-47.0) Mean Corpuscular Volume 88 fL (79-100) 89 fL (79-100) 86 fL (79-100) Mean Corpuscular Hemoglobin 28 pg (25-35) 28 pg (25-35) 28 pg (25-35) Mean Corpuscular Hemoglobin Concent 32 g/dL (31-37) 31 g/dL (31-37) 33 g/dL (31-37) Red Cell Distribution Width 17.2 % (11.5-14.5) 17.8 % (11.5-14.5) 16.3 % (11.5-14.5) Platelet Count 518 x10^3/uL (140-400) 574 x10^3/uL (140-400) 360 x10^3/uL (140-400) Neutrophils (%) (Auto) 97 % (31-73) 98 % (31-73) Lymphocytes (%) (Auto) 1 % (24-48) 1 % (24-48) Monocytes (%) (Auto) 1 % (0-9) 1 % (0-9) Eosinophils (%) (Auto) 0 % (0-3) 0 % (0-3) Basophils (%) (Auto) 1 % (0-3) 0 % (0-3) Neutrophils # (Auto) 78.9 x10^3uL (1.8-7.7) 72.3 x10^3uL (1.8-7.7) Lymphocytes # (Auto) 1.1 x10^3/uL (1.0-4.8) 0.5 x10^3/uL (1.0-4.8) Monocytes # (Auto) 0.6 x10^3/uL (0.0-1.1) 0.8 x10^3/uL (0.0-1.1) Eosinophils # (Auto) 0.1 x10^3/uL (0.0-0.7) 0.1 x10^3/uL (0.0-0.7) Basophils # (Auto) 0.6 x10^3/uL (0.0-0.2) 0.1 x10^3/uL (0.0-0.2) Prothrombin Time 16.7 SEC (11.7-14.0) Prothromb Time International Ratio 1.4 (0.8-1.1) Fibrinogen 203 mg/dL (200-440) Segmented Neutrophils % 87 % (35-66) 90 % (35-66) Band Neutrophils % 13 % (0-9) 7 % (0-9) Nucleated Red Blood Cells 2 3 Toxic Granulation Mod Slight Platelet Estimate Increased (ADEQUATE) Adequate (ADEQUATE) Giant Platelets Present Sodium Level 136 mmol/L (136-145) 136 mmol/L (136-145) Potassium Level 4.9 mmol/L (3.5-5.1) 3.5 mmol/L (3.5-5.1) Chloride Level 99 mmol/L (98-107) 97 mmol/L (98-107) Carbon Dioxide Level 23 mmol/L (21-32) 20 mmol/L (21-32) Anion Gap 14 (6-14) 19 (6-14) Blood Urea Nitrogen 31 mg/dL (7-20) 24 mg/dL (7-20) Creatinine 3.5 mg/dL (0.6-1.0) 2.6 mg/dL (0.6-1.0) Estimated GFR (Cockcroft-Gault) 15.6 22.0 Glucose Level 198 mg/dL (70-99) 163 mg/dL (70-99) Calcium Level 7.7 mg/dL (8.5-10.1) 7.7 mg/dL (8.5-10.1) Lymphocytes % 2 % (24-48) Basophils % 1 % (0-3) Toxic Vacuolation Present Large Platelets Present Polychromasia Present Anisocytosis Present Glucose (Fingerstick) 145 mg/dL (70-99) Laboratory Tests Test 02/18/17 05:45 02/18/17 05:46 White Blood Count 73.9 x10^3/uL (4.0-11.0) Red Blood Count 2.84 x10^6/uL (3.50-5.40) Hemoglobin 8.1 g/dL (12.0-15.5) Hematocrit 24.5 % (36.0-47.0) Mean Corpuscular Volume 86 fL (79-100) Mean Corpuscular Hemoglobin 28 pg (25-35) Mean Corpuscular Hemoglobin Concent 33 g/dL (31-37) Red Cell Distribution Width 16.3 % (11.5-14.5) Platelet Count 360 x10^3/uL (140-400) Neutrophils (%) (Auto) 98 % (31-73) Lymphocytes (%) (Auto) 1 % (24-48) Monocytes (%) (Auto) 1 % (0-9) Eosinophils (%) (Auto) 0 % (0-3) Basophils (%) (Auto) 0 % (0-3) Neutrophils # (Auto) 72.3 x10^3uL (1.8-7.7) Lymphocytes # (Auto) 0.5 x10^3/uL (1.0-4.8) Monocytes # (Auto) 0.8 x10^3/uL (0.0-1.1) Eosinophils # (Auto) 0.1 x10^3/uL (0.0-0.7) Basophils # (Auto) 0.1 x10^3/uL (0.0-0.2) Segmented Neutrophils % 90 % (35-66) Band Neutrophils % 7 % (0-9) Lymphocytes % 2 % (24-48) Basophils % 1 % (0-3) Nucleated Red Blood Cells 3 Toxic Granulation Slight Toxic Vacuolation Present Platelet Estimate Adequate (ADEQUATE) Large Platelets Present Polychromasia Present Anisocytosis Present Sodium Level 136 mmol/L (136-145) Potassium Level 3.5 mmol/L (3.5-5.1) Chloride Level 97 mmol/L (98-107) Carbon Dioxide Level 20 mmol/L (21-32) Anion Gap 19 (6-14) Blood Urea Nitrogen 24 mg/dL (7-20) Creatinine 2.6 mg/dL (0.6-1.0) Estimated GFR (Cockcroft-Gault) 22.0 Glucose Level 163 mg/dL (70-99) Calcium Level 7.7 mg/dL (8.5-10.1) Glucose (Fingerstick) 145 mg/dL (70-99) Microbiology 02/14/17 Blood Culture - Preliminary, Resulted NO GROWTH AFTER 3 DAYS 02/14/17 Gram Stain - Final, Complete 02/14/17 Urine Culture - Final, Complete 02/14/17 Urine Culture Result 1 (DENNY) - Final, Complete Medications Current Medications Dextrose (Dextrose 50%-Water Syringe) 25 gm STK-MED ONCE IV ; Start 02/14/17 at 21:20; Stop 02/14/17 at 21:21; Status DC Sodium Chloride 2,040 ml @ 510 mls/hr Q4H IV Last administered on 02/14/17 21 :33; Start 02/14/17 at 21:33; Stop 02/14/17 at 22:05; Status DC Vancomycin HCl (Vanco Per Pharmacy) 1 each PRN DAILY PRN MC SEE COMMENTS Last administered on 02/17/17 07:34; Start 02/14/17 at 22:00; Stop 02/17/17 at 08:16 ; Status DC Levofloxacin/ Dextrose (Levaquin Per Pharmacy) 1 each PRN DAILY PRN MC SEE COMMENTS; Start 02/14/17 at 23:00; Stop 02/15/17 at 07:38; Status DC Vancomycin HCl 1.75 gm/Sodium Chloride 500 ml @ 250 mls/hr 1X ONCE IV Last administered on 02/14/17 22:21; Start 02/14/17 at 22:15; Stop 02/15/17 at 00:14 ; Status DC Sodium Chloride 1,000 ml @ 510 mls/hr Q1H58M IV ; Start 02/14/17 at 22:15; Stop 02/15/17 at 01:32; Status DC Levofloxacin/ Dextrose 100 ml @ 100 mls/hr Q48H IV Last administered on 22:58; Start 02/14/17 at 23:00; Stop 02/15/17 at 07:38; Status DC Dextrose (Dextrose 50%-Water Syringe) 25 gm 1X ONCE IV Last administered on 22:52; Start 02/14/17 at 23:00; Stop 02/14/17 at 23:01; Status DC Dextrose (Dextrose 50%-Water Syringe) 25 gm 1X ONCE IV ; Start 02/14/17 at 23: 00; Stop 02/14/17 at 23:01; Status DC Furosemide (Lasix) 40 mg 1X PRN PRN IV blood transfusion; Start 02/14/17 at 23: 00; Stop 02/15/17 at 22:59; Status DC Dopamine HCl/ Dextrose 250 ml @ 12.688 mls/ hr CONT PRN IV SEE I/O RECORD Last administered on 02/14/17 23:44; Start 02/14/17 at 23:15 Ondansetron HCl (Zofran) 4 mg PRN Q6HRS PRN IV NAUSEA/VOMITING Last administered on 02/17/17 12:29; Start 02/14/17 at 23:15 Famotidine (Pepcid) 10 mg BID IVP Last administered on 02/17/17 21:23; Start 02/15/17 at 09:00 Acetaminophen (Tylenol) 120 mg PRN Q6HRS PRN HI MILD PAIN / TEMP; Start at 23:15 Acetaminophen (Tylenol) 500 mg PRN Q6HRS PRN PO MILD PAIN / TEMP; Start at 23:15 Vancomycin HCl 1 each 1X ONCE MC ; Start 02/16/17 at 22:30; Stop 02/16/17 at 22 :30; Status DC Ondansetron HCl (Zofran) 4 mg PRN Q8HRS PRN IV NAUSEA/VOMITING; Start 02/14/17 at 23:45; Stop 02/15/17 at 23:44; Status DC Dextrose/Sodium Chloride 1,000 ml @ 125 mls/hr 1X ONCE IV ; Start 02/14/17 at 23:45; Stop 02/15/17 at 07:44; Status DC Piperacillin Sod/ Tazobactam Sod 2.25 gm/Sodium Chloride 50 ml @ 100 mls/hr Q6HRS IV Last administered on 02/18/17 05:41; Start 02/15/17 at 07:30 Micafungin Sodium 100 mg/Dextrose 100 ml @ 100 mls/hr Q24H IV Last administered on 02/17/17 12:30; Start 02/15/17 at 08:00 Fentanyl Citrate (Fentanyl 2ml Vial) 50 mcg PRN Q2HR PRN IV PAIN Last administered on 02/17/17 10:25; Start 02/15/17 at 09:15 Morphine Sulfate 4 mg PRN Q2HR PRN IV PAIN Last administered on 02/17/17 00:47 ; Start 02/15/17 at 09:45 Sodium Chloride 1,000 ml @ 75 mls/hr [id number] IV Last administered on 17:42; Start 02/15/17 at 10:00; Stop 02/16/17 at 17:54; Status DC Phytonadione (Vitamin K Ampule) 10 mg 1X ONCE SQ Last administered on 11:35; Start 02/15/17 at 10:30; Stop 02/15/17 at 10:33; Status DC Desmopressin Acetate 20 mcg/ Sodium Chloride 55 ml @ 102 mls/hr 1X ONCE IV Last administered on 02/15/17 11:35; Start 02/15/17 at 11:00; Stop 02/15/17 at 11:32; Status DC Hydroxyurea (Hydrea) 500 mg QMWF PO Last administered on 02/17/17 18:26; Start 02/15/17 at 11:00 Lidocaine/Sodium Bicarbonate (Buffered Lidocaine 1%) 20 ml STK-MED ONCE IJ ; Start 02/15/17 at 11:23; Stop 02/15/17 at 11:24; Status DC Heparin Sodium/ Sodium Chloride 500 ml @ As Directed STK-MED ONCE .ROUTE ; Start 02/15/17 at 11:23; Stop 02/15/17 at 11:24; Status DC Heparin Sodium (Porcine) (Heparin Sodium) 10,000 unit STK-MED ONCE .ROUTE ; Start 02/15/17 at 11:49; Stop 02/15/17 at 11:50; Status DC Lidocaine/Sodium Bicarbonate (Buffered Lidocaine 1%) 3 ml 1X ONCE IJ Last administered on 02/15/17 12:14; Start 02/15/17 at 12:00; Stop 02/15/17 at 12:14 ; Status DC Heparin Sodium/ Sodium Chloride 60 unit 1X ONCE IV Last administered on 12:17; Start 02/15/17 at 12:00; Stop 02/15/17 at 12:14; Status DC Heparin Sodium (Porcine) (Heparin Sodium) 2,500 unit 1X ONCE INT CAT Last administered on 02/15/17 12:17; Start 02/15/17 at 12:00; Stop 02/15/17 at 12:14 ; Status DC Vancomycin HCl 1 each 1X ONCE MC Last administered on 02/16/17 05:00; Start 02/16/17 at 05:00; Stop 02/16/17 at 05:01; Status DC Sodium Chloride 1,000 ml @ 1,000 mls/hr Q1H PRN IV hypotension; Start 02/15/17 at 13:56; Stop 02/15/17 at 19:55; Status DC Sodium Chloride 1,000 ml @ 400 mls/hr Q2H30M PRN IV PATENCY; Start 02/15/17 at 13:56; Stop 02/16/17 at 01:55; Status DC Info (PHARMACY MONITORING -- do not chart) 1 each PRN DAILY PRN MC SEE COMMENTS ; Start 02/15/17 at 14:00; Status UNV Info (PHARMACY MONITORING -- do not chart) 1 each PRN DAILY PRN MC SEE COMMENTS ; Start 02/15/17 at 14:00; Stop 02/17/17 at 11:20; Status DC Albuterol Sulfate (Ventolin Neb Soln) 2.5 mg PRN Q4HRS PRN NEB SHORTNESS OF BREATH; Start 02/15/17 at 15:30 Vancomycin HCl 500 mg/Sodium Chloride 100 ml @ 100 mls/hr 1X ONCE IV Last administered on 02/16/17 17:41; Start 02/16/17 at 16:00; Stop 02/16/17 at 16:59 ; Status DC Sodium Chloride 1,000 ml @ 1,000 mls/hr Q1H PRN IV hypotension; Start 02/16/17 at 13:41; Stop 02/16/17 at 19:40; Status DC Sodium Chloride 1,000 ml @ 400 mls/hr Q2H30M PRN IV PATENCY; Start 02/16/17 at 13:41; Stop 02/17/17 at 01:40; Status DC Info (PHARMACY MONITORING -- do not chart) 1 each PRN DAILY PRN MC SEE COMMENTS ; Start 02/16/17 at 13:45; Stop 02/17/17 at 11:20; Status DC Vancomycin HCl 500 mg/Sodium Chloride 100 ml @ 100 mls/hr 1X ONCE IV ; Start 02/17/17 at 15:00; Stop 02/17/17 at 15:00; Status DC Sodium Chloride 1,000 ml @ 1,000 mls/hr Q1H PRN IV hypotension; Start 02/17/17 at 09:24; Stop 02/17/17 at 15:23; Status DC Sodium Chloride (Normal Saline Flush) 10 ml 1X PRN PRN IV AP catheter pack; Start 02/17/17 at 09:30; Stop 02/18/17 at 09:29; Status DC Sodium Chloride (Normal Saline Flush) 10 ml 1X PRN PRN IV [employer] catheter pack; Start 02/17/17 at 09:30; Stop 02/18/17 at 09:29; Status DC Sodium Chloride 1,000 ml @ 400 mls/hr Q2H30M PRN IV PATENCY; Start 02/17/17 at 09:24; Stop 02/17/17 at 21:23; Status DC Info (PHARMACY MONITORING -- do not chart) 1 each PRN DAILY PRN MC SEE COMMENTS ; Start 02/17/17 at 09:30 Albumin Human 100 ml @ 100 mls/hr 1X STAT IV Last administered on 02/17/17 09:49; Start 02/17/17 at 09:35; Stop 02/17/17 at 10:34; Status DC Albumin Human 100 ml @ 100 mls/hr 1X ONCE IV Last administered on 02/17/17t 10:46; Start 02/17/17 at 10:45; Stop 02/17/17 at 11:44; Status DC Iohexol (Omnipaque 300 Mg/ml) 75 ml 1X ONCE IV ; Start 02/17/17 at 11:15; Stop 02/17/17 at 11:21; Status DC Info 1 each PRN DAILY PRN MC SEE COMMENTS Last administered on 02/18/17t 08:13 ; Start 02/17/17 at 18:00 Sodium Chloride 90 meq/Potassium Chloride 50 meq/ Potassium Phosphate 13.6 mmol/ Magnesium Sulfate 10 meq/ Calcium Gluconate 10 meq/ Multivitamins 10 ml/Chromium / Copper/Manganese/ Seleni/Zn 1 ml/ Total Parenteral Nutrition/Amino Acids/ Dextrose/ Fat Emulsion Intravenous 1,512 ml @ 63 mls/hr TPN CONT IV ; Start at 22:00; Stop 02/19/17 at 21:59 Iohexol (Omnipaque 300 Mg/ml) 75 ml 1X ONCE IV Last administered on 02/18/17t 09:38; Start 02/18/17 at 09:30; Stop 02/18/17 at 09:31; Status DC Sodium Chloride 1,000 ml @ 1,000 mls/hr Q1H PRN IV hypotension; Start 02/18/17 at 10:09; Stop 02/18/17 at 16:08 Albumin Human 200 ml @ 200 mls/hr 1X PRN PRN IV Hypotension; Start 02/18/17 at 10:15; Stop 02/18/17 at 16:14 Sodium Chloride 1,000 ml @ 400 mls/hr Q2H30M PRN IV PATENCY; Start 02/18/17 at 10:09; Stop 02/18/17 at 22:08 Info (PHARMACY MONITORING -- do not chart) 1 each PRN DAILY PRN MC SEE COMMENTS ; Start 02/18/17 at 10:15; Status UNV Info (PHARMACY MONITORING -- do not chart) 1 each PRN DAILY PRN MC SEE COMMENTS ; Start 02/18/17 at 10:15; Status UNV Active Scripts Active Reported Lantus Solostar (Insulin Glargine,Hum.rec.anlog) 100 Unit/1 Ml Insuln.pen 22 Unit SQ QHS Droxia (Hydroxyurea) 200 Mg Capsule 200 Mg PO DAILY Feosol (Ferrous Sulfate) 325 Mg Tablet 325 Mg PO DAILY Coreg (Carvedilol) 12.5 Mg Tablet 1 Tab PO BID Bumetanide 2 Mg Tablet 2 Tab PO BID Aspir 81 (Aspirin) 81 Mg Tablet.dr 1 Tab PO DAILY Allopurinol 300 Mg Tablet 1 Tab PO DAILY Advair 250-50 Diskus (Fluticasone/Salmeterol) 1 Each Disk.w.dev 1 Puff IH Q12HR Zetia (Ezetimibe) 10 Mg Tablet 0.5 Tab PO DAILY Zemplar (Paricalcitol) 1 Mcg Capsule 1 Cap PO DAILY Sodium Bicarbonate 650 Mg Tablet 850 Mg PO BID Sensipar (Cinacalcet Hcl) 30 Mg Tablet 30 Mg PO QODAY Renvela (Sevelamer Carbonate) 800 Mg Tablet 2 Tab PO TID Proair Hfa Inhaler (Albuterol Sulfate) 8.5 Gm Hfa.aer.ad 2 Puff INH PRN Q4HRS PRN Omeprazole 40 Mg Capsule.dr 1 Cap PO DAILY Percocet 5-325 Mg Tablet (Oxycodone/Acetaminophen) 1 Each Tablet 1-2 Tab PO PRN Q6HRS PRN Novolog Flexpen (Insulin Aspart) 100 Unit/1 Ml Insuln.pen 15 Unit SQ DAILY Novolog Flexpen (Insulin Aspart) 100 Unit/1 Ml Insuln.pen 12 Unit SQ BIDACBL Norvasc (Amlodipine Besylate) 10 Mg Tablet 10 Mg PO DAILY Miralax (Polyethylene Glycol 3350) 17 Gm Powd.pack 1 Packet PO DAILY Lipitor (Atorvastatin Calcium) 40 Mg Tablet 1 Tab PO DAILY Lidocaine 1 Each Adh..patch 1 Each TP DAILY Vitals/I & O Vital Sign - Last 24 Hours 02/17/17 02/17/17 02/17/17 02/17/17 11:45 12:00 12:00 12:10 Temp 97.0 97.4 97.0 97.4 Pulse 94 98 96 Resp 20 8 20 B/P (MAP) 89/43 95/47 (63) 118/53 Pulse Ox 98 O2 Delivery Room Air Room Air 02/17/17 02/17/17 02/17/17 02/17/17 13:00 14:00 15:00 16:00 Pulse 100 98 98 104 Resp 8 8 8 8 B/P (MAP) 133/53 (79) 119/66 (83) 143/83 (103) 132/54 (80) Pulse Ox 98 98 98 98 O2 Delivery Room Air Room Air Room Air Room Air 02/17/17 02/17/17 02/17/17 02/17/17 16:00 17:00 18:00 19:00 Temp 98.1 98.1 Pulse 88 98 86 Resp 8 8 14 B/P (MAP) 104/48 (66) 134/58 (83) 142/57 Pulse Ox 98 98 O2 Delivery Room Air Room Air Room Air 02/17/17 02/17/17 02/17/17 02/17/17 19:00 19:45 20:00 20:00 Temp 98.1 98.2 98.1 98.1 98.2 98.1 Pulse 86 90 93 Resp 14 13 14 B/P (MAP) 142/57 (85) 137/60 141/59 (86) Pulse Ox 100 99 O2 Delivery Nasal Cannula Nasal Cannula Nasal Cannula O2 Flow Rate 2.0 2.0 2.0 02/17/17 02/17/17 02/17/17 02/17/17 21:00 22:00 23:00 23:55 Pulse 86 86 87 Resp 12 15 12 B/P (MAP) 124/56 (78) 126/56 (79) 135/57 (83) Pulse Ox 100 100 100 O2 Delivery Nasal Cannula Nasal Cannula Nasal Cannula Nasal Cannula O2 Flow Rate 2.0 2.0 2.0 2.0 02/18/17 02/18/17 02/18/17 02/18/17 00:00 01:00 02:00 03:00 Temp 98.2 98.2 Pulse 87 82 84 80 Resp 13 17 05 12 B/P (MAP) 140/61 (87) 124/53 (76) 142/62 (88) 151/69 (96) Pulse Ox 100 99 100 99 O2 Delivery Nasal Cannula Nasal Cannula Nasal Cannula Nasal Cannula O2 Flow Rate 2.0 2.0 2.0 2.0 02/18/17 02/18/17 02/18/17 02/18/17 03:50 04:00 05:00 06:00 Temp 98.1 98.1 Pulse 86 85 85 Resp 13 B/P (MAP) 149/74 (99) 128/54 (78) 132/66 (88) Pulse Ox 100 99 100 O2 Delivery Nasal Cannula Nasal Cannula Nasal Cannula Nasal Cannula O2 Flow Rate 2.0 2.0 2.0 2.0 02/18/17 02/18/17 02/18/17 02/18/17 07:00 08:00 08:00 09:00 Temp 98.2 98.2 Pulse 88 89 84 Resp 13 B/P (MAP) 169/85 (113) 140/64 (89) 152/66 (94) Pulse Ox 99 100 94 O2 Delivery Nasal Cannula Nasal Cannula Nasal Cannula Nasal Cannula O2 Flow Rate 2.0 2.0 2.0 2.0 02/18/17 02/18/17 10:00 11:00 Pulse 87 84 Resp 16 14 B/P (MAP) 154/64 (94) 115/64 (81) Pulse Ox 97 99 O2 Delivery Room Air Room Air O2 Flow Rate Nutrition Consultation Dietary Evaluation: Recommendations by RD: Increase Calorie Intake Comments: PPN/TPN if PO intake on liquid diet unable to meet > 75% needs Expected Outcomes/Goals: Pt to tolerate TF at goal (Novasource Renal@35 ml/hr) Intake to meet > 75% est needs Interpretation of weight loss: >1-2% in 1 week Malnutrition Findings: Food and Nutrition Intake (Mod: <75% est energy req 7days Weight Status: Appropriate WING JORDAN III DO Feb 18, 2017 11:44
[2017-02-18] MEDS: FAMOTIDINE 20 MG/2 ML VIAL IVP SCH ×2 (12:21→21:27)
[2017-02-18] MEDS: MICAFUNGIN 100 MG in IV DEXTROSE 5% 100 ML IV SCH (16:50)
--- NOTE | 2017-02-18 17:55 | PDOC ---
PROGRESS NOTES Subjective Subjective c/c - f/u of Secondary myelofibrosis ROS - has abd pain Objective Objective Vital Signs Date Time Temp Pulse Resp B/P (MAP) Pulse Ox O2 Delivery O2 Flow Rate FiO2 02/18/17 17:00 81 13 138/59 (85) 99 Room Air 02/18/17 16:00 98.2 98.2 02/18/17 10:00 Intake and Output 02/19/17 07:00 # Voids 2 # Bowel Movements 2 Physical Exam Heart: Normal S1, Normal S2 General: Alert, Oriented X3 Lungs: Clear to auscultation Neuro: Normal speech Assessment Assessment Problems Medical Problems: (1) Anemia Status: Acute (2) Coagulopathy Status: Acute (3) Congestive heart failure Status: Acute (4) End stage renal disease Status: Acute (5) Hypoglycemia Status: Acute (6) Hypotension Status: Acute (7) Myelodysplastic syndrome Status: Acute IMPRESSION AND PLAN: 1. 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 She was off hydroxyurea for almost 2-3 weeks prior to this admission because of renal failure. Her blood counts are significantly worse with worsening WBC and worsening platelets. Hence, I resumed hydroxyurea 02/15/17. Elevated platelet counts in patients with essential thrombocythemia can also increase the risk of bleeding. Hence, it is essential to decrease the platelet counts with the help of hydroxyurea. I will continue to monitor WBC, hemoglobin, and platelet counts closely while she is on hydroxyurea. 2. Hematoma, intraabdominal, due to recent peritoneal dialysis catheter placement. Her INR is elevated at 1.8. She already received 3 units of FFP and s/p 1 dose of vitamin K 02/15/17. Her creatinine is 6.6 with BUN of 65. Patients with uncontrolled myeloproliferative disorder and the patients with uremia can have deficiency of von Willebrand factor. s/p 20 mcg of DDAVP 02/15/17 for management of the underlying hematoma. 3. Sepsis. Appreciate ID consultation. 4. Leukocytosis due to myelofibrosis. Worse at 107 on 02/17/17. Continue hydrea. Plan peripheral smear review by pathology. Improved to 73.9 5. Thrombocytosis due to myelofibrosis. Plan hydroxyurea as described above. Plt improved to 360. 6. Anemia - s/p transfusion, Hb 8.1.. 7. Coagulopathy - s/p FFP/Vit K/DDAVP I d/w RN Comment Review of Relevant I have reviewed the following items laure (where applicable) has been applied. Labs Laboratory Tests Test 02/17/17 07:25 02/18/17 05:45 02/18/17 05:46 02/18/17 11:15 White Blood Count 107.1 x10^3/uL (4.0-11.0) 73.9 x10^3/uL (4.0-11.0) Red Blood Count 2.52 x10^6/uL (3.50-5.40) 2.84 x10^6/uL (3.50-5.40) Hemoglobin 7.0 g/dL (12.0-15.5) 8.1 g/dL (12.0-15.5) Hematocrit 22.3 % (36.0-47.0) 24.5 % (36.0-47.0) Mean Corpuscular Volume 89 fL (79-100) 86 fL (79-100) Mean Corpuscular Hemoglobin 28 pg (25-35) 28 pg (25-35) Mean Corpuscular Hemoglobin Concent 31 g/dL (31-37) 33 g/dL (31-37) Red Cell Distribution Width 17.8 % (11.5-14.5) 16.3 % (11.5-14.5) Platelet Count 574 x10^3/uL (140-400) 360 x10^3/uL (140-400) Segmented Neutrophils % 87 % (35-66) 90 % (35-66) Band Neutrophils % 13 % (0-9) 7 % (0-9) Nucleated Red Blood Cells 2 3 Toxic Granulation Mod Slight Platelet Estimate Increased (ADEQUATE) Adequate (ADEQUATE) Giant Platelets Present Sodium Level 136 mmol/L (136-145) 136 mmol/L (136-145) Potassium Level 4.9 mmol/L (3.5-5.1) 3.5 mmol/L (3.5-5.1) Chloride Level 99 mmol/L (98-107) 97 mmol/L (98-107) Carbon Dioxide Level 23 mmol/L (21-32) 20 mmol/L (21-32) Anion Gap 14 (6-14) 19 (6-14) Blood Urea Nitrogen 31 mg/dL (7-20) 24 mg/dL (7-20) Creatinine 3.5 mg/dL (0.6-1.0) 2.6 mg/dL (0.6-1.0) Estimated GFR (Cockcroft-Gault) 15.6 22.0 Glucose Level 198 mg/dL (70-99) 163 mg/dL (70-99) Calcium Level 7.7 mg/dL (8.5-10.1) 7.7 mg/dL (8.5-10.1) Neutrophils (%) (Auto) 98 % (31-73) Lymphocytes (%) (Auto) 1 % (24-48) Monocytes (%) (Auto) 1 % (0-9) Eosinophils (%) (Auto) 0 % (0-3) Basophils (%) (Auto) 0 % (0-3) Neutrophils # (Auto) 72.3 x10^3uL (1.8-7.7) Lymphocytes # (Auto) 0.5 x10^3/uL (1.0-4.8) Monocytes # (Auto) 0.8 x10^3/uL (0.0-1.1) Eosinophils # (Auto) 0.1 x10^3/uL (0.0-0.7) Basophils # (Auto) 0.1 x10^3/uL (0.0-0.2) Lymphocytes % 2 % (24-48) Basophils % 1 % (0-3) Toxic Vacuolation Present Large Platelets Present Polychromasia Present Anisocytosis Present Glucose (Fingerstick) 145 mg/dL (70-99) Lactic Acid Level 1.0 mmol/L (0.4-2.0) Laboratory Tests Test 02/18/17 05:45 02/18/17 05:46 02/18/17 11:15 White Blood Count 73.9 x10^3/uL (4.0-11.0) Red Blood Count 2.84 x10^6/uL (3.50-5.40) Hemoglobin 8.1 g/dL (12.0-15.5) Hematocrit 24.5 % (36.0-47.0) Mean Corpuscular Volume 86 fL (79-100) Mean Corpuscular Hemoglobin 28 pg (25-35) Mean Corpuscular Hemoglobin Concent 33 g/dL (31-37) Red Cell Distribution Width 16.3 % (11.5-14.5) Platelet Count 360 x10^3/uL (140-400) Neutrophils (%) (Auto) 98 % (31-73) Lymphocytes (%) (Auto) 1 % (24-48) Monocytes (%) (Auto) 1 % (0-9) Eosinophils (%) (Auto) 0 % (0-3) Basophils (%) (Auto) 0 % (0-3) Neutrophils # (Auto) 72.3 x10^3uL (1.8-7.7) Lymphocytes # (Auto) 0.5 x10^3/uL (1.0-4.8) Monocytes # (Auto) 0.8 x10^3/uL (0.0-1.1) Eosinophils # (Auto) 0.1 x10^3/uL (0.0-0.7) Basophils # (Auto) 0.1 x10^3/uL (0.0-0.2) Segmented Neutrophils % 90 % (35-66) Band Neutrophils % 7 % (0-9) Lymphocytes % 2 % (24-48) Basophils % 1 % (0-3) Nucleated Red Blood Cells 3 Toxic Granulation Slight Toxic Vacuolation Present Platelet Estimate Adequate (ADEQUATE) Large Platelets Present Polychromasia Present Anisocytosis Present Sodium Level 136 mmol/L (136-145) Potassium Level 3.5 mmol/L (3.5-5.1) Chloride Level 97 mmol/L (98-107) Carbon Dioxide Level 20 mmol/L (21-32) Anion Gap 19 (6-14) Blood Urea Nitrogen 24 mg/dL (7-20) Creatinine 2.6 mg/dL (0.6-1.0) Estimated GFR (Cockcroft-Gault) 22.0 Glucose Level 163 mg/dL (70-99) Calcium Level 7.7 mg/dL (8.5-10.1) Glucose (Fingerstick) 145 mg/dL (70-99) Lactic Acid Level 1.0 mmol/L (0.4-2.0) Microbiology 02/14/17 Blood Culture - Preliminary, Resulted NO GROWTH AFTER 3 DAYS 02/14/17 Gram Stain - Final, Complete 02/14/17 Urine Culture - Final, Complete 02/14/17 Urine Culture Result 1 (DENNY) - Final, Complete Medications Current Medications Dextrose (Dextrose 50%-Water Syringe) 25 gm STK-MED ONCE IV ; Start 02/14/17 at 21:20; Stop 02/14/17 at 21:21; Status DC Sodium Chloride 2,040 ml @ 510 mls/hr Q4H IV Last administered on 02/14/17 21 :33; Start 02/14/17 at 21:33; Stop 02/14/17 at 22:05; Status DC Vancomycin HCl (Vanco Per Pharmacy) 1 each PRN DAILY PRN MC SEE COMMENTS Last administered on 02/17/17 07:34; Start 02/14/17 at 22:00; Stop 02/17/17 at 08:16 ; Status DC Levofloxacin/ Dextrose (Levaquin Per Pharmacy) 1 each PRN DAILY PRN MC SEE COMMENTS; Start 02/14/17 at 23:00; Stop 02/15/17 at 07:38; Status DC Vancomycin HCl 1.75 gm/Sodium Chloride 500 ml @ 250 mls/hr 1X ONCE IV Last administered on 02/14/17 22:21; Start 02/14/17 at 22:15; Stop 02/15/17 at 00:14 ; Status DC Sodium Chloride 1,000 ml @ 510 mls/hr Q1H58M IV ; Start 02/14/17 at 22:15; Stop 02/15/17 at 01:32; Status DC Levofloxacin/ Dextrose 100 ml @ 100 mls/hr Q48H IV Last administered on 22:58; Start 02/14/17 at 23:00; Stop 02/15/17 at 07:38; Status DC Dextrose (Dextrose 50%-Water Syringe) 25 gm 1X ONCE IV Last administered on 22:52; Start 02/14/17 at 23:00; Stop 02/14/17 at 23:01; Status DC Dextrose (Dextrose 50%-Water Syringe) 25 gm 1X ONCE IV ; Start 02/14/17 at 23: 00; Stop 02/14/17 at 23:01; Status DC Furosemide (Lasix) 40 mg 1X PRN PRN IV blood transfusion; Start 02/14/17 at 23: 00; Stop 02/15/17 at 22:59; Status DC Dopamine HCl/ Dextrose 250 ml @ 12.688 mls/ hr CONT PRN IV SEE I/O RECORD Last administered on 02/14/17 23:44; Start 02/14/17 at 23:15 Ondansetron HCl (Zofran) 4 mg PRN Q6HRS PRN IV NAUSEA/VOMITING Last administered on 02/17/17 12:29; Start 02/14/17 at 23:15 Famotidine (Pepcid) 10 mg BID IVP Last administered on 02/18/17 12:21; Start 02/15/17 at 09:00 Acetaminophen (Tylenol) 120 mg PRN Q6HRS PRN [place] MILD PAIN / TEMP; Start at 23:15 Acetaminophen (Tylenol) 500 mg PRN Q6HRS PRN PO MILD PAIN / TEMP; Start at 23:15 Vancomycin HCl 1 each 1X ONCE MC ; Start 02/16/17 at 22:30; Stop 02/16/17 at 22 :30; Status DC Ondansetron HCl (Zofran) 4 mg PRN Q8HRS PRN IV NAUSEA/VOMITING; Start 02/14/17 at 23:45; Stop 02/15/17 at 23:44; Status DC Dextrose/Sodium Chloride 1,000 ml @ 125 mls/hr 1X ONCE IV ; Start 02/14/17 at 23:45; Stop 02/15/17 at 07:44; Status DC Piperacillin Sod/ Tazobactam Sod 2.25 gm/Sodium Chloride 50 ml @ 100 mls/hr Q6HRS IV Last administered on 02/18/17 12:21; Start 02/15/17 at 07:30 Micafungin Sodium 100 mg/Dextrose 100 ml @ 100 mls/hr Q24H IV Last administered on 02/18/17 16:50; Start 02/15/17 at 08:00 Fentanyl Citrate (Fentanyl 2ml Vial) 50 mcg PRN Q2HR PRN IV PAIN Last administered on 02/17/17 10:25; Start 02/15/17 at 09:15 Morphine Sulfate 4 mg PRN Q2HR PRN IV PAIN Last administered on 02/17/17 00:47 ; Start 02/15/17 at 09:45 Sodium Chloride 1,000 ml @ 75 mls/hr [id number] IV Last administered on 17:42; Start 02/15/17 at 10:00; Stop 02/16/17 at 17:54; Status DC Phytonadione (Vitamin K Ampule) 10 mg 1X ONCE SQ Last administered on 11:35; Start 02/15/17 at 10:30; Stop 02/15/17 at 10:33; Status DC Desmopressin Acetate 20 mcg/ Sodium Chloride 55 ml @ 102 mls/hr 1X ONCE IV Last administered on 02/15/17 11:35; Start 02/15/17 at 11:00; Stop 02/15/17 at 11:32; Status DC Hydroxyurea (Hydrea) 500 mg QMWF PO Last administered on 02/17/17 18:26; Start 02/15/17 at 11:00 Lidocaine/Sodium Bicarbonate (Buffered Lidocaine 1%) 20 ml STK-MED ONCE IJ ; Start 02/15/17 at 11:23; Stop 02/15/17 at 11:24; Status DC Heparin Sodium/ Sodium Chloride 500 ml @ As Directed STK-MED ONCE .ROUTE ; Start 02/15/17 at 11:23; Stop 02/15/17 at 11:24; Status DC Heparin Sodium (Porcine) (Heparin Sodium) 10,000 unit STK-MED ONCE .ROUTE ; Start 02/15/17 at 11:49; Stop 02/15/17 at 11:50; Status DC Lidocaine/Sodium Bicarbonate (Buffered Lidocaine 1%) 3 ml 1X ONCE IJ Last administered on 02/15/17 12:14; Start 02/15/17 at 12:00; Stop 02/15/17 at 12:14 ; Status DC Heparin Sodium/ Sodium Chloride 60 unit 1X ONCE IV Last administered on 12:17; Start 02/15/17 at 12:00; Stop 02/15/17 at 12:14; Status DC Heparin Sodium (Porcine) (Heparin Sodium) 2,500 unit 1X ONCE INT CAT Last administered on 02/15/17 12:17; Start 02/15/17 at 12:00; Stop 02/15/17 at 12:14 ; Status DC Vancomycin HCl 1 each 1X ONCE MC Last administered on 9/14/17at 05:00; Start 02/16/17 at 05:00; Stop 02/16/17 at 05:01; Status DC Sodium Chloride 1,000 ml @ 1,000 mls/hr Q1H PRN IV hypotension; Start 02/15/17 at 13:56; Stop 02/15/17 at 19:55; Status DC Sodium Chloride 1,000 ml @ 400 mls/hr Q2H30M PRN IV PATENCY; Start 02/15/17 at 13:56; Stop 02/16/17 at 01:55; Status DC Info (PHARMACY MONITORING -- do not chart) 1 each PRN DAILY PRN MC SEE COMMENTS ; Start 02/15/17 at 14:00; Status UNV Info (PHARMACY MONITORING -- do not chart) 1 each PRN DAILY PRN MC SEE COMMENTS ; Start 02/15/17 at 14:00; Stop 02/17/17 at 11:20; Status DC Albuterol Sulfate (Ventolin Neb Soln) 2.5 mg PRN Q4HRS PRN NEB SHORTNESS OF BREATH; Start 02/15/17 at 15:30 Vancomycin HCl 500 mg/Sodium Chloride 100 ml @ 100 mls/hr 1X ONCE IV Last administered on 02/16/17t 17:41; Start 02/16/17 at 16:00; Stop 02/16/17 at 16:59 ; Status DC Sodium Chloride 1,000 ml @ 1,000 mls/hr Q1H PRN IV hypotension; Start 02/16/17 at 13:41; Stop 02/16/17 at 19:40; Status DC Sodium Chloride 1,000 ml @ 400 mls/hr Q2H30M PRN IV PATENCY; Start 02/16/17 at 13:41; Stop 02/17/17 at 01:40; Status DC Info (PHARMACY MONITORING -- do not chart) 1 each PRN DAILY PRN MC SEE COMMENTS ; Start 02/16/17 at 13:45; Stop 02/17/17 at 11:20; Status DC Vancomycin HCl 500 mg/Sodium Chloride 100 ml @ 100 mls/hr 1X ONCE IV ; Start 02/17/17 at 15:00; Stop 02/17/17 at 15:00; Status DC Sodium Chloride 1,000 ml @ 1,000 mls/hr Q1H PRN IV hypotension; Start 02/17/17 at 09:24; Stop 02/17/17 at 15:23; Status DC Sodium Chloride (Normal Saline Flush) 10 ml 1X PRN PRN IV AP catheter pack; Start 02/17/17 at 09:30; Stop 02/18/17 at 09:29; Status DC Sodium Chloride (Normal Saline Flush) 10 ml 1X PRN PRN IV BUILDING [employer]ESS[employer] catheter pack; Start 02/17/17 at 09:30; Stop 02/18/17 at 09:29; Status DC Sodium Chloride 1,000 ml @ 400 mls/hr Q2H30M PRN IV PATENCY; Start 02/17/17 at 09:24; Stop 02/17/17 at 21:23; Status DC Info (PHARMACY MONITORING -- do not chart) 1 each PRN DAILY PRN MC SEE COMMENTS ; Start 02/17/17 at 09:30 Albumin Human 100 ml @ 100 mls/hr 1X STAT IV Last administered on 02/17/17 09:49; Start 02/17/17 at 09:35; Stop 02/17/17 at 10:34; Status DC Albumin Human 100 ml @ 100 mls/hr 1X ONCE IV Last administered on 02/17/17 10:46; Start 02/17/17 at 10:45; Stop 02/17/17 at 11:44; Status DC Iohexol (Omnipaque 300 Mg/ml) 75 ml 1X ONCE IV ; Start 02/17/17 at 11:15; Stop 02/17/17 at 11:21; Status DC Info 1 each PRN DAILY PRN MC SEE COMMENTS Last administered on 02/18/17 08:13 ; Start 02/17/17 at 18:00 Sodium Chloride 90 meq/Potassium Chloride 50 meq/ Potassium Phosphate 13.6 mmol/ Magnesium Sulfate 10 meq/ Calcium Gluconate 10 meq/ Multivitamins 10 ml/Chromium / Copper/Manganese/ Seleni/Zn 1 ml/ Total Parenteral Nutrition/Amino Acids/ Dextrose/ Fat Emulsion Intravenous 1,512 ml @ 63 mls/hr TPN CONT IV ; Start at 22:00; Stop 02/19/17 at 21:59 Iohexol (Omnipaque 300 Mg/ml) 75 ml 1X ONCE IV Last administered on 02/18/17t 09:38; Start 02/18/17 at 09:30; Stop 9/16/17 at 09:31; Status DC Sodium Chloride 1,000 ml @ 1,000 mls/hr Q1H PRN IV hypotension; Start 02/18/17 at 10:09; Stop 02/18/17 at 16:08; Status DC Albumin Human 200 ml @ 200 mls/hr 1X PRN PRN IV Hypotension; Start 02/18/17 at 10:15; Stop 02/18/17 at 16:14; Status DC Sodium Chloride 1,000 ml @ 400 mls/hr Q2H30M PRN IV PATENCY; Start 02/18/17 at 10:09; Stop 02/18/17 at 22:08 Info (PHARMACY MONITORING -- do not chart) 1 each PRN DAILY PRN MC SEE COMMENTS ; Start 02/18/17 at 10:15; Status UNV Info (PHARMACY MONITORING -- do not chart) 1 each PRN DAILY PRN MC SEE COMMENTS ; Start 02/18/17 at 10:15; Status UNV Active Scripts Active Reported Lantus Solostar (Insulin Glargine,Hum.rec.anlog) 100 Unit/1 Ml Insuln.pen 22 Unit SQ QHS Droxia (Hydroxyurea) 200 Mg Capsule 200 Mg PO DAILY Feosol (Ferrous Sulfate) 325 Mg Tablet 325 Mg PO DAILY Coreg (Carvedilol) 12.5 Mg Tablet 1 Tab PO BID Bumetanide 2 Mg Tablet 2 Tab PO BID Aspir 81 (Aspirin) 81 Mg Tablet. 1 Tab PO DAILY Allopurinol 300 Mg Tablet 1 Tab PO DAILY Advair 250-50 Diskus (Fluticasone/Salmeterol) 1 Each Disk.w.dev 1 Puff IH Q12HR Zetia (Ezetimibe) 10 Mg Tablet 0.5 Tab PO DAILY Zemplar (Paricalcitol) 1 Mcg Capsule 1 Cap PO DAILY Sodium Bicarbonate 650 Mg Tablet 850 Mg PO BID Sensipar (Cinacalcet Hcl) 30 Mg Tablet 30 Mg PO QODAY Renvela (Sevelamer Carbonate) 800 Mg Tablet 2 Tab PO TID Proair Hfa Inhaler (Albuterol Sulfate) 8.5 Gm Hfa.aer.ad 2 Puff INH PRN Q4HRS PRN Omeprazole 40 Mg Capsule.dr 1 Cap PO DAILY Percocet 5-325 Mg Tablet (Oxycodone/Acetaminophen) 1 Each Tablet 1-2 Tab PO PRN Q6HRS PRN Novolog Flexpen (Insulin Aspart) 100 Unit/1 Ml Insuln.pen 15 Unit SQ DAILY Novolog Flexpen (Insulin Aspart) 100 Unit/1 Ml Insuln.pen 12 Unit SQ BIDACBL Norvasc (Amlodipine Besylate) 10 Mg Tablet 10 Mg PO DAILY Miralax (Polyethylene Glycol 3350) 17 Gm Powd.pack 1 Packet PO DAILY Lipitor (Atorvastatin Calcium) 40 Mg Tablet 1 Tab PO DAILY Lidocaine 1 Each Adh..patch 1 Each TP DAILY Vitals/I & O Vital Sign - Last 24 Hours 02/17/17 02/17/17 02/17/17 02/17/17 18:00 19:00 19:00 19:45 Temp 98.1 98.1 98.2 98.1 98.1 98.2 Pulse 98 86 86 90 Resp 8 14 14 13 B/P (MAP) 134/58 (83) 142/57 142/57 (85) 137/60 Pulse Ox 98 100 O2 Delivery Room Air Nasal Cannula O2 Flow Rate 2.0 02/17/17 02/17/17 02/17/17 02/17/17 20:00 20:00 21:00 22:00 Temp 98.1 98.1 Pulse 93 86 86 Resp 14 12 15 B/P (MAP) 141/59 (86) 124/56 (78) 126/56 (79) Pulse Ox 99 100 100 O2 Delivery Nasal Cannula Nasal Cannula Nasal Cannula Nasal Cannula O2 Flow Rate 2.0 2.0 2.0 2.0 02/17/17 02/17/17 02/18/17 02/18/17 23:00 23:55 00:00 01:00 Temp 98.2 98.2 Pulse 87 87 82 Resp 12 13 13 B/P (MAP) 135/57 (83) 140/61 (87) 124/53 (76) Pulse Ox 100 100 99 O2 Delivery Nasal Cannula Nasal Cannula Nasal Cannula Nasal Cannula O2 Flow Rate 2.0 2.0 2.0 2.0 02/18/17 02/18/17 02/18/17 02/18/17 02:00 03:00 03:50 04:00 Temp 98.1 98.1 Pulse 84 80 86 Resp 12 12 14 B/P (MAP) 142/62 (88) 151/69 (96) 149/74 (99) Pulse Ox 100 99 100 O2 Delivery Nasal Cannula Nasal Cannula Nasal Cannula Nasal Cannula O2 Flow Rate 2.0 2.0 2.0 2.0 02/18/17 02/18/17 02/18/17 02/18/17 05:00 06:00 07:00 08:00 Pulse 85 85 88 Resp 17 B/P (MAP) 128/54 (78) 132/66 (88) 169/85 (113) Pulse Ox 99 100 99 O2 Delivery Nasal Cannula Nasal Cannula Nasal Cannula Nasal Cannula O2 Flow Rate 2.0 2.0 2.0 2.0 02/18/17 02/18/17 02/18/17 02/18/17 08:00 09:00 10:00 11:00 Temp 98.2 98.2 Pulse 89 84 87 84 Resp 19 13 16 14 B/P (MAP) 140/64 (89) 152/66 (94) 154/64 (94) 115/64 (81) Pulse Ox 100 94 97 99 O2 Delivery Nasal Cannula Nasal Cannula Room Air Room Air O2 Flow Rate 2.0 2.0 02/18/17 02/18/17 02/18/17 02/18/17 12:00 12:00 13:00 14:00 Temp 98.1 98.1 Pulse 90 82 98 Resp 16 12 13 B/P (MAP) 119/73 (88) 139/60 (86) 139/60 (86) Pulse Ox 98 100 99 O2 Delivery Room Air Room Air Room Air Room Air 02/18/17 02/18/17 02/18/17 02/18/17 15:00 16:00 16:00 17:00 Temp 98.2 98.2 Pulse 80 80 81 Resp 13 18 13 B/P (MAP) 129/53 (78) 133/87 (102) 138/59 (85) Pulse Ox 99 98 99 O2 Delivery Room Air Room Air Room Air Room Air Nutrition Consultation Dietary Evaluation: Recommendations by RD: Increase Calorie Intake Comments: PPN/TPN if PO intake on liquid diet unable to meet > 75% needs Expected Outcomes/Goals: Pt to tolerate TF at goal (Novasource Renal@35 ml/hr) Intake to meet > 75% est needs Interpretation of weight loss: >1-2% in 1 week Malnutrition Findings: Food and Nutrition Intake (Mod: <75% est energy req 7days Weight Status: Appropriate ALPESH BROWN MD Feb 18, 2017 17:55
[2017-02-18] MEDS: fentaNYL PF VIAL 100 MCG/2 ML VIAL IV PRN (20:52)
[2017-02-18] MEDS ORDERED: TOTAL PARENTERAL NUTRITION 1,424.9987 ML, AMINO ACIDS 10 % 60 GM, DEXTROSE 70 % IN WATE... IV SCH ×10 (22:00)
[2017-02-19] VITALS (16 sets, daily range): BP systolic 133–184; BP diastolic 57–86
[2017-02-19] MEDS: PIPERACILLIN/TAZOBACTAM 2.25 GM in IV NORMAL SALINE 50ML 50 ML IV SCH ×4 (00:10→18:10)
[2017-02-19] MEDS: MORPHINE SULFATE 4 MG/ML DISP.SYRIN. IV PRN ×3 (00:11→15:37)
[2017-02-19 06:26] LABS: BASO # 0.4 x10^3/uL (0.0-0.2); BASO % 1 % (0-3); EOS % 0 % (0-3); HEMOGLOBIN 7.6 g/dL (12.0-15.5); LYMPH # 0.7 x10^3/uL (1.0-4.8); LYMPH % 1 % (24-48); MEAN CORPUSCULAR HEMOGLOBIN 29 pg (25-35); MEAN CORPUSCULAR HGB CONC 33 g/dL (31-37); MEAN CORPUSCULAR VOLUME 87 fL (79-100); MONO % 1 % (0-9); NEUT % 97 % (31-73); PLATELET COUNT 313 x10^3/uL (140-400); RED BLOOD COUNT 2.66 x10^6/uL (3.50-5.40); RED CELL DISTRIBUTION WIDTH 16.7 % (11.5-14.5)
[2017-02-19 06:27] LABS: CALCIUM 8.2 mg/dL (8.5-10.1); CREATININE 2.3 mg/dL (0.6-1.0); GFR 25.4; MAGNESIUM 1.9 mg/dL (1.8-2.4); PHOSPHORUS 2.3 mg/dL (2.6-4.7); POTASSIUM 3.6 mmol/L (3.5-5.1)
[2017-02-19 07:19] LABS: % EOS 1 % (0-5)
[2017-02-19 07:20] LABS: ANISOCYTOSIS PRESENT; PLT ESTIMATE ADEQUATE (ADEQUATE)
--- NOTE | 2017-02-19 08:08 | PDOC ---
PULMONARY PROGRESS NOTES Subjective off 02, no sob better, no cough, no pain Vitals Vital Signs Date Time Temp Pulse Resp B/P (MAP) Pulse Ox O2 Delivery O2 Flow Rate FiO2 02/19/17 06:00 92 12 160/72 (101) 98 Room Air 02/19/17 03:00 98.3 98.3 02/19/17 03:00 2.0 ROS: No Nausea, No Chest Pain, No Abdominal Pain, No Increase Cough General: Alert HEENT: Other (nc at perrl nose throat clear) Lungs: Crackles Cardiovascular: S1, S2 Abdomen: Soft, Non-tender Neuro Exam: Alert, Oriented Extremities: No Edema Skin: Warm Labs Laboratory Tests Test 02/18/17 05:45 02/18/17 05:46 02/18/17 11:15 02/19/17 06:00 White Blood Count 73.9 x10^3/uL (4.0-11.0) 72.0 x10^3/uL (4.0-11.0) Red Blood Count 2.84 x10^6/uL (3.50-5.40) 2.66 x10^6/uL (3.50-5.40) Hemoglobin 8.1 g/dL (12.0-15.5) 7.6 g/dL (12.0-15.5) Hematocrit 24.5 % (36.0-47.0) 23.0 % (36.0-47.0) Mean Corpuscular Volume 86 fL (79-100) 87 fL (79-100) Mean Corpuscular Hemoglobin 28 pg (25-35) 29 pg (25-35) Mean Corpuscular Hemoglobin Concent 33 g/dL (31-37) 33 g/dL (31-37) Red Cell Distribution Width 16.3 % (11.5-14.5) 16.7 % (11.5-14.5) Platelet Count 360 x10^3/uL (140-400) 313 x10^3/uL (140-400) Neutrophils (%) (Auto) 98 % (31-73) 97 % (31-73) Lymphocytes (%) (Auto) 1 % (24-48) 1 % (24-48) Monocytes (%) (Auto) 1 % (0-9) 1 % (0-9) Eosinophils (%) (Auto) 0 % (0-3) 0 % (0-3) Basophils (%) (Auto) 0 % (0-3) 1 % (0-3) Neutrophils # (Auto) 72.3 x10^3uL (1.8-7.7) 70.0 x10^3uL (1.8-7.7) Lymphocytes # (Auto) 0.5 x10^3/uL (1.0-4.8) 0.7 x10^3/uL (1.0-4.8) Monocytes # (Auto) 0.8 x10^3/uL (0.0-1.1) 0.7 x10^3/uL (0.0-1.1) Eosinophils # (Auto) 0.1 x10^3/uL (0.0-0.7) 0.2 x10^3/uL (0.0-0.7) Basophils # (Auto) 0.1 x10^3/uL (0.0-0.2) 0.4 x10^3/uL (0.0-0.2) Segmented Neutrophils % 90 % (35-66) 96 % (35-66) Band Neutrophils % 7 % (0-9) 1 % (0-9) Lymphocytes % 2 % (24-48) 1 % (24-48) Basophils % 1 % (0-3) Nucleated Red Blood Cells 3 Toxic Granulation Slight Toxic Vacuolation Present Platelet Estimate Adequate (ADEQUATE) Adequate (ADEQUATE) Large Platelets Present Present Polychromasia Present Anisocytosis Present Present Sodium Level 136 mmol/L (136-145) 140 mmol/L (136-145) Potassium Level 3.5 mmol/L (3.5-5.1) 3.6 mmol/L (3.5-5.1) Chloride Level 97 mmol/L (98-107) 100 mmol/L (98-107) Carbon Dioxide Level 20 mmol/L (21-32) 27 mmol/L (21-32) Anion Gap 19 (6-14) 13 (6-14) Blood Urea Nitrogen 24 mg/dL (7-20) 19 mg/dL (7-20) Creatinine 2.6 mg/dL (0.6-1.0) 2.3 mg/dL (0.6-1.0) Estimated GFR (Cockcroft-Gault) 22.0 25.4 Glucose Level 163 mg/dL (70-99) 253 mg/dL (70-99) Calcium Level 7.7 mg/dL (8.5-10.1) 8.2 mg/dL (8.5-10.1) Glucose (Fingerstick) 145 mg/dL (70-99) Lactic Acid Level 1.0 mmol/L (0.4-2.0) Monocytes % 1 % (0-10) Eosinophils % 1 % (0-5) Phosphorus Level 2.3 mg/dL (2.6-4.7) Magnesium Level 1.9 mg/dL (1.8-2.4) Triglycerides Level 109 mg/dL (0-150) Test 02/19/17 06:04 Glucose (Fingerstick) 257 mg/dL (70-99) Laboratory Tests Test 02/18/17 11:15 02/19/17 06:00 02/19/17 06:04 Lactic Acid Level 1.0 mmol/L (0.4-2.0) White Blood Count 72.0 x10^3/uL (4.0-11.0) Red Blood Count 2.66 x10^6/uL (3.50-5.40) Hemoglobin 7.6 g/dL (12.0-15.5) Hematocrit 23.0 % (36.0-47.0) Mean Corpuscular Volume 87 fL (79-100) Mean Corpuscular Hemoglobin 29 pg (25-35) Mean Corpuscular Hemoglobin Concent 33 g/dL (31-37) Red Cell Distribution Width 16.7 % (11.5-14.5) Platelet Count 313 x10^3/uL (140-400) Neutrophils (%) (Auto) 97 % (31-73) Lymphocytes (%) (Auto) 1 % (24-48) Monocytes (%) (Auto) 1 % (0-9) Eosinophils (%) (Auto) 0 % (0-3) Basophils (%) (Auto) 1 % (0-3) Neutrophils # (Auto) 70.0 x10^3uL (1.8-7.7) Lymphocytes # (Auto) 0.7 x10^3/uL (1.0-4.8) Monocytes # (Auto) 0.7 x10^3/uL (0.0-1.1) Eosinophils # (Auto) 0.2 x10^3/uL (0.0-0.7) Basophils # (Auto) 0.4 x10^3/uL (0.0-0.2) Segmented Neutrophils % 96 % (35-66) Band Neutrophils % 1 % (0-9) Lymphocytes % 1 % (24-48) Monocytes % 1 % (0-10) Eosinophils % 1 % (0-5) Platelet Estimate Adequate (ADEQUATE) Large Platelets Present Anisocytosis Present Sodium Level 140 mmol/L (136-145) Potassium Level 3.6 mmol/L (3.5-5.1) Chloride Level 100 mmol/L (98-107) Carbon Dioxide Level 27 mmol/L (21-32) Anion Gap 13 (6-14) Blood Urea Nitrogen 19 mg/dL (7-20) Creatinine 2.3 mg/dL (0.6-1.0) Estimated GFR (Cockcroft-Gault) 25.4 Glucose Level 253 mg/dL (70-99) Calcium Level 8.2 mg/dL (8.5-10.1) Phosphorus Level 2.3 mg/dL (2.6-4.7) Magnesium Level 1.9 mg/dL (1.8-2.4) Triglycerides Level 109 mg/dL (0-150) Glucose (Fingerstick) 257 mg/dL (70-99) Medications Active Scripts Medications Dose Route/Sig Max Daily Dose Days Date Category Lantus Solostar (Insulin Glargine,Hum.rec.anlog) 100 Unit/1 Ml Insuln.pen 22 Unit SQ QHS 02/15/17 Reported Droxia (Hydroxyurea) 200 Mg Capsule 200 Mg PO DAILY 02/15/17 Reported Feosol (Ferrous Sulfate) 325 Mg Tablet 325 Mg PO DAILY 02/15/17 Reported Coreg (Carvedilol) 12.5 Mg Tablet 1 Tab PO BID 02/15/17 Reported Bumetanide 2 Mg Tablet 2 Tab PO BID 02/15/17 Reported Aspir 81 (Aspirin) 81 Mg Tablet.dr 1 Tab PO DAILY 02/15/17 Reported Allopurinol 300 Mg Tablet 1 Tab PO DAILY 02/15/17 Reported Advair 250-50 Diskus (Fluticasone/Salmeterol) 1 Each Disk.w.dev 1 Puff IH Q12HR 02/15/17 Reported Zetia (Ezetimibe) 10 Mg Tablet 0.5 Tab PO DAILY 02/15/17 Reported Zemplar (Paricalcitol) 1 Mcg Capsule 1 Cap PO DAILY 02/15/17 Reported Sodium Bicarbonate 650 Mg Tablet 850 Mg PO BID 02/15/17 Reported Sensipar (Cinacalcet Hcl) 30 Mg Tablet 30 Mg PO QODAY 02/15/17 Reported Renvela (Sevelamer Carbonate) 800 Mg Tablet 2 Tab PO TID 02/15/17 Reported Proair Hfa Inhaler (Albuterol Sulfate) 8.5 Gm Hfa.aer.ad 2 Puff INH PRN Q4HRS PRN 02/15/17 Reported Omeprazole 40 Mg Capsule.dr 1 Cap PO DAILY 02/15/17 Reported Percocet 5-325 Mg Tablet (Oxycodone/Acetaminophen) 1 Each Tablet 1-2 Tab PO PRN Q6HRS PRN 02/15/17 Reported Novolog Flexpen (Insulin Aspart) 100 Unit/1 Ml Insuln.pen 15 Unit SQ DAILY 02/15/17 Reported Novolog Flexpen (Insulin Aspart) 100 Unit/1 Ml Insuln.pen 12 Unit SQ BIDACBL 02/15/17 Reported Norvasc (Amlodipine Besylate) 10 Mg Tablet 10 Mg PO DAILY 02/15/17 Reported Miralax (Polyethylene Glycol 3350) 17 Gm Powd.pack 1 Packet PO DAILY 02/15/17 Reported Lipitor (Atorvastatin Calcium) 40 Mg Tablet 1 Tab PO DAILY 02/15/17 Reported Lidocaine 1 Each Adh..patch 1 Each TP DAILY 02/15/17 Reported Impression . 1. Abnormal CT of the abdomen revealing some basilar opacities, suspect mostly atelectasis. 2. Asthma. 3. Sepsis present upon admission. 4. Hypothermia. 5. Leukocytosis. 6. Lactic acidosis. 7. Chronic kidney disease, status post recent catheter for dialysis. 8. Acute toxic metabolic encephalopathy. 9. Diabetes. 10. Polycythemia. 11. Intraabdominal hematoma. Plan . 02 titration PRN NEBS TPN, ? start tf low rate 1. RESP STATUS COMPENSATED 2. Antibiotics for sepsis per ID. 3. Follow Nephrology input. 4. Follow hem input 5. Intraabdominal hematoma. monitor resp status closely discussed w rn ? out of icu ALBA EDGE MD Feb 19, 2017 08:08
--- NOTE | 2017-02-19 08:50 | PDOC ---
SURGICAL PROGRESS NOTE Subjective Pt reports feeling better, looks brighter, min abd pain Vital Signs Vital Signs Date Time Temp Pulse Resp B/P (MAP) Pulse Ox O2 Delivery O2 Flow Rate FiO2 02/19/17 06:00 92 12 160/72 (101) 98 Room Air 02/19/17 03:00 98.3 98.3 02/19/17 03:00 2.0 General: Alert, Cooperative, No acute distress Abdomen: Soft, No tenderness Labs Laboratory Tests Test 02/18/17 05:45 02/18/17 05:46 02/18/17 11:15 02/19/17 06:00 White Blood Count 73.9 x10^3/uL (4.0-11.0) 72.0 x10^3/uL (4.0-11.0) Red Blood Count 2.84 x10^6/uL (3.50-5.40) 2.66 x10^6/uL (3.50-5.40) Hemoglobin 8.1 g/dL (12.0-15.5) 7.6 g/dL (12.0-15.5) Hematocrit 24.5 % (36.0-47.0) 23.0 % (36.0-47.0) Mean Corpuscular Volume 86 fL (79-100) 87 fL (79-100) Mean Corpuscular Hemoglobin 28 pg (25-35) 29 pg (25-35) Mean Corpuscular Hemoglobin Concent 33 g/dL (31-37) 33 g/dL (31-37) Red Cell Distribution Width 16.3 % (11.5-14.5) 16.7 % (11.5-14.5) Platelet Count 360 x10^3/uL (140-400) 313 x10^3/uL (140-400) Neutrophils (%) (Auto) 98 % (31-73) 97 % (31-73) Lymphocytes (%) (Auto) 1 % (24-48) 1 % (24-48) Monocytes (%) (Auto) 1 % (0-9) 1 % (0-9) Eosinophils (%) (Auto) 0 % (0-3) 0 % (0-3) Basophils (%) (Auto) 0 % (0-3) 1 % (0-3) Neutrophils # (Auto) 72.3 x10^3uL (1.8-7.7) 70.0 x10^3uL (1.8-7.7) Lymphocytes # (Auto) 0.5 x10^3/uL (1.0-4.8) 0.7 x10^3/uL (1.0-4.8) Monocytes # (Auto) 0.8 x10^3/uL (0.0-1.1) 0.7 x10^3/uL (0.0-1.1) Eosinophils # (Auto) 0.1 x10^3/uL (0.0-0.7) 0.2 x10^3/uL (0.0-0.7) Basophils # (Auto) 0.1 x10^3/uL (0.0-0.2) 0.4 x10^3/uL (0.0-0.2) Segmented Neutrophils % 90 % (35-66) 96 % (35-66) Band Neutrophils % 7 % (0-9) 1 % (0-9) Lymphocytes % 2 % (24-48) 1 % (24-48) Basophils % 1 % (0-3) Nucleated Red Blood Cells 3 Toxic Granulation Slight Toxic Vacuolation Present Platelet Estimate Adequate (ADEQUATE) Adequate (ADEQUATE) Large Platelets Present Present Polychromasia Present Anisocytosis Present Present Sodium Level 136 mmol/L (136-145) 140 mmol/L (136-145) Potassium Level 3.5 mmol/L (3.5-5.1) 3.6 mmol/L (3.5-5.1) Chloride Level 97 mmol/L (98-107) 100 mmol/L (98-107) Carbon Dioxide Level 20 mmol/L (21-32) 27 mmol/L (21-32) Anion Gap 19 (6-14) 13 (6-14) Blood Urea Nitrogen 24 mg/dL (7-20) 19 mg/dL (7-20) Creatinine 2.6 mg/dL (0.6-1.0) 2.3 mg/dL (0.6-1.0) Estimated GFR (Cockcroft-Gault) 22.0 25.4 Glucose Level 163 mg/dL (70-99) 253 mg/dL (70-99) Calcium Level 7.7 mg/dL (8.5-10.1) 8.2 mg/dL (8.5-10.1) Glucose (Fingerstick) 145 mg/dL (70-99) Lactic Acid Level 1.0 mmol/L (0.4-2.0) Monocytes % 1 % (0-10) Eosinophils % 1 % (0-5) Phosphorus Level 2.3 mg/dL (2.6-4.7) Magnesium Level 1.9 mg/dL (1.8-2.4) Triglycerides Level 109 mg/dL (0-150) Test 02/19/17 06:04 Glucose (Fingerstick) 257 mg/dL (70-99) Laboratory Tests Test 02/18/17 11:15 02/19/17 06:00 02/19/17 06:04 Lactic Acid Level 1.0 mmol/L (0.4-2.0) White Blood Count 72.0 x10^3/uL (4.0-11.0) Red Blood Count 2.66 x10^6/uL (3.50-5.40) Hemoglobin 7.6 g/dL (12.0-15.5) Hematocrit 23.0 % (36.0-47.0) Mean Corpuscular Volume 87 fL (79-100) Mean Corpuscular Hemoglobin 29 pg (25-35) Mean Corpuscular Hemoglobin Concent 33 g/dL (31-37) Red Cell Distribution Width 16.7 % (11.5-14.5) Platelet Count 313 x10^3/uL (140-400) Neutrophils (%) (Auto) 97 % (31-73) Lymphocytes (%) (Auto) 1 % (24-48) Monocytes (%) (Auto) 1 % (0-9) Eosinophils (%) (Auto) 0 % (0-3) Basophils (%) (Auto) 1 % (0-3) Neutrophils # (Auto) 70.0 x10^3uL (1.8-7.7) Lymphocytes # (Auto) 0.7 x10^3/uL (1.0-4.8) Monocytes # (Auto) 0.7 x10^3/uL (0.0-1.1) Eosinophils # (Auto) 0.2 x10^3/uL (0.0-0.7) Basophils # (Auto) 0.4 x10^3/uL (0.0-0.2) Segmented Neutrophils % 96 % (35-66) Band Neutrophils % 1 % (0-9) Lymphocytes % 1 % (24-48) Monocytes % 1 % (0-10) Eosinophils % 1 % (0-5) Platelet Estimate Adequate (ADEQUATE) Large Platelets Present Anisocytosis Present Sodium Level 140 mmol/L (136-145) Potassium Level 3.6 mmol/L (3.5-5.1) Chloride Level 100 mmol/L (98-107) Carbon Dioxide Level 27 mmol/L (21-32) Anion Gap 13 (6-14) Blood Urea Nitrogen 19 mg/dL (7-20) Creatinine 2.3 mg/dL (0.6-1.0) Estimated GFR (Cockcroft-Gault) 25.4 Glucose Level 253 mg/dL (70-99) Calcium Level 8.2 mg/dL (8.5-10.1) Phosphorus Level 2.3 mg/dL (2.6-4.7) Magnesium Level 1.9 mg/dL (1.8-2.4) Triglycerides Level 109 mg/dL (0-150) Glucose (Fingerstick) 257 mg/dL (70-99) Problem List Problems Medical Problems: (1) Anemia Status: Acute (2) Coagulopathy Status: Acute (3) Congestive heart failure Status: Acute (4) End stage renal disease Status: Acute (5) Hypoglycemia Status: Acute (6) Hypotension Status: Acute (7) Myelodysplastic syndrome Status: Acute Assessment/Plan abd hematoma abnormal CT c/w splenic abscess, although suspect possible hematoma cont supportive care Problems: FREDY DENNIS MD Feb 19, 2017 08:50
[2017-02-19] MEDS ORDERED: POTASSIUM PHOSPHATE DIBASIC 13.6 MMOL in IV NORMAL SALINE 100ML 100 ML IV ONE (09:00)
[2017-02-19] MEDS: MICAFUNGIN 100 MG in IV DEXTROSE 5% 100 ML IV SCH (09:25)
[2017-02-19] MEDS: FAMOTIDINE 20 MG/2 ML VIAL IVP SCH ×2 (09:26→20:21)
--- NOTE | 2017-02-19 09:57 | PDOC ---
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, no focal neurologic deficit SKIN: No rash IV: ok Labs Lab Laboratory Tests Test 02/18/17 11:15 02/19/17 06:00 02/19/17 06:04 Lactic Acid Level 1.0 mmol/L (0.4-2.0) White Blood Count 72.0 x10^3/uL (4.0-11.0) Red Blood Count 2.66 x10^6/uL (3.50-5.40) Hemoglobin 7.6 g/dL (12.0-15.5) Hematocrit 23.0 % (36.0-47.0) Mean Corpuscular Volume 87 fL (79-100) Mean Corpuscular Hemoglobin 29 pg (25-35) Mean Corpuscular Hemoglobin Concent 33 g/dL (31-37) Red Cell Distribution Width 16.7 % (11.5-14.5) Platelet Count 313 x10^3/uL (140-400) Neutrophils (%) (Auto) 97 % (31-73) Lymphocytes (%) (Auto) 1 % (24-48) Monocytes (%) (Auto) 1 % (0-9) Eosinophils (%) (Auto) 0 % (0-3) Basophils (%) (Auto) 1 % (0-3) Neutrophils # (Auto) 70.0 x10^3uL (1.8-7.7) Lymphocytes # (Auto) 0.7 x10^3/uL (1.0-4.8) Monocytes # (Auto) 0.7 x10^3/uL (0.0-1.1) Eosinophils # (Auto) 0.2 x10^3/uL (0.0-0.7) Basophils # (Auto) 0.4 x10^3/uL (0.0-0.2) Segmented Neutrophils % 96 % (35-66) Band Neutrophils % 1 % (0-9) Lymphocytes % 1 % (24-48) Monocytes % 1 % (0-10) Eosinophils % 1 % (0-5) Platelet Estimate Adequate (ADEQUATE) Large Platelets Present Anisocytosis Present Sodium Level 140 mmol/L (136-145) Potassium Level 3.6 mmol/L (3.5-5.1) Chloride Level 100 mmol/L (98-107) Carbon Dioxide Level 27 mmol/L (21-32) Anion Gap 13 (6-14) Blood Urea Nitrogen 19 mg/dL (7-20) Creatinine 2.3 mg/dL (0.6-1.0) Estimated GFR (Cockcroft-Gault) 25.4 Glucose Level 253 mg/dL (70-99) Calcium Level 8.2 mg/dL (8.5-10.1) Phosphorus Level 2.3 mg/dL (2.6-4.7) Magnesium Level 1.9 mg/dL (1.8-2.4) Triglycerides Level 109 mg/dL (0-150) Glucose (Fingerstick) 257 mg/dL (70-99) Objective Assessment Sepsis - POA (hypothermia/leukocytosis/lactic acidosis). Procalcitonin mild elevation 1.98 02/15. cults neg Leukocytosis - in part reactive to bleed and transfusions/myelofibrosis. Better Elevated TSH - ? euthyroid. T4 ok Abd hematoma - Possibly infected - cult negative CKD - needing PD but not yet started (states PD cath placed 02/09). S/p HD cath and HD 02/15 Acute Encephalopathy -better DM Bilat airspace disease Polycythemia Vera - now myelofibrosis -Hydroxyurea restarted Plan Plan of Care Cont Zosyn and micafungin, wean soon Cultures NGTD monitor JOSHUA GRANT MD Feb 19, 2017 09:57
[2017-02-19] MEDS: TPN PER PHARMACY MC PRN (11:38)
--- NOTE | 2017-02-19 11:59 | PDOC ---
SUBJECTIVE ROS esrd Doign and feeling better overall CVS: no Orthopnea, no CP RESP: no SOB, no MATHEWS GI: no Nausea, no Vomiting : no Dysuria, no Urgency OBJECTIVE Vital Signs Vital Signs Date Time Temp Pulse Resp B/P (MAP) Pulse Ox O2 Delivery O2 Flow Rate FiO2 02/19/17 11:43 100 Room Air 02/19/17 06:00 92 12 160/72 (101) 02/19/17 03:00 98.3 98.3 02/19/17 03:00 2.0 I & 0 Intake and Output 02/20/17 07:00 Intake Total 200 ml Balance 200 ml Other 200 ml PHYSICAL EXAM Physical Exam GEN: Awake, Oriented x 3, In no distress EYES: Vision Unchanged, Conjunctiva Normal EN: No EN Drainage, Mucous Membranes moist NECK: no JVD, min JVP, Supple, no Thyromegaly CVS: S1S2, soft Murmur, No Gallop, No Rub,tr Edema RESP: no Rales, no Rhonchi,no Acc. Muscle Use GI: BS + ve, NO Bruit, Non Tender, Non Distended : no CVA tenderness, no Suprapubic Tenderness DIAGNOSIS/ASSESSMENT Assessment & Plan ESRD: Current fluid and E-lyte status does not necessitate emergent need for dialysis. Will re-evaluate for dialysis in the am and continue on MWF schedule. ? Leave PD Cath vs remove ANEMIA; Aranap as ordered, Transfuse with next HD as needed HTN: Current BP meds as reviewed. See orders for changes. Low Phos - IV K Phos given Nutrition - restart PO as keira - + BM today Permacath when OK with ID. Discussed Plan of Care with pt at bedside Problems: COMMENT/RELEVANT DATA Meds Current Medications Medications (Trade) Dose Ordered Sig/Tri Start Time Stop Time Status Last Admin Dose Admin Acetaminophen (Tylenol) 500 mg PRN Q6HRS PRN 02/14/17 23:15 Albumin Human 200 ml @ 200 mls/hr 1X PRN PRN 02/18/17 10:15 02/18/17 16:14 DC Albuterol Sulfate (Ventolin Neb Soln) 2.5 mg PRN Q4HRS PRN 02/15/17 15:30 Desmopressin Acetate 20 mcg/ Sodium Chloride 55 ml @ 102 mls/hr 1X ONCE 02/15/17 11:00 02/15/17 11:32 DC 02/15/17 11:35 102 MLS/HR Dextrose (Dextrose 50%-Water Syringe) 25 gm 1X ONCE 02/14/17 23:00 02/14/17 23:01 DC Dextrose/Sodium Chloride 1,000 ml @ 125 mls/hr 1X ONCE 02/14/17 23:45 02/15/17 07:44 DC Dopamine HCl/ Dextrose 250 ml @ 12.688 mls/ hr CONT PRN 02/14/17 23:15 02/14/17 23:44 12.688 MLS/HR Famotidine (Pepcid) 10 mg BID 02/15/17 09:00 02/19/17 09:26 10 MG Fentanyl Citrate (Fentanyl 2ml Vial) 50 mcg PRN Q2HR PRN 02/15/17 09:15 02/18/17 20:52 50 MCG Furosemide (Lasix) 40 mg 1X PRN PRN 02/14/17 23:00 02/15/17 22:59 DC Heparin Sodium (Porcine) (Heparin Sodium) 2,500 unit 1X ONCE 02/15/17 12:00 02/15/17 12:14 DC 02/15/17 12:17 2,500 UNIT Heparin Sodium/ Sodium Chloride 60 unit 1X ONCE 02/15/17 12:00 02/15/17 12:14 DC 02/15/17 12:17 60 UNIT Hydroxyurea (Hydrea) 500 mg QMWF 02/15/17 11:00 02/17/17 18:26 500 MG Info (PHARMACY MONITORING -- do not chart) 1 each PRN DAILY PRN 02/18/17 10:15 UNV Iohexol (Omnipaque 300 Mg/ml) 75 ml 1X ONCE 02/18/17 09:30 02/18/17 09:31 DC 02/18/17 09:38 75 ML Levofloxacin/ Dextrose 100 ml @ 100 mls/hr Q48H 02/14/17 23:00 02/15/17 07:38 DC 02/14/17 22:58 100 MLS/HR Levofloxacin/ Dextrose (Levaquin Per Pharmacy) 1 each PRN DAILY PRN 02/14/17 23:00 02/15/17 07:38 DC Lidocaine/Sodium Bicarbonate (Buffered Lidocaine 1%) 3 ml 1X ONCE 02/15/17 12:00 02/15/17 12:14 DC 02/15/17 12:14 5 ML Micafungin Sodium 100 mg/Dextrose 100 ml @ 100 mls/hr Q24H 02/15/17 08:00 02/19/17 09:25 100 MLS/HR Morphine Sulfate 4 mg PRN Q2HR PRN 02/15/17 09:45 02/19/17 11:43 4 MG Ondansetron HCl (Zofran) 4 mg PRN Q8HRS PRN 02/14/17 23:45 02/15/17 23:44 DC Phytonadione (Vitamin K Ampule) 10 mg 1X ONCE 02/15/17 10:30 02/15/17 10:33 DC 02/15/17 11:35 10 MG Piperacillin Sod/ Tazobactam Sod 2.25 gm/Sodium Chloride 50 ml @ 100 mls/hr Q6HRS 02/15/17 07:30 02/19/17 05:44 100 MLS/HR Potassium Phosphate 13.6 mmol/Sodium Chloride 104.5333 ml @ 52.267 m... 1X ONCE 02/19/17 09:00 02/19/17 10:59 DC 02/19/17 09:25 52.267 MLS/HR Sodium Chloride 1,000 ml @ 400 mls/hr Q2H30M PRN 02/18/17 10:09 02/18/17 22:08 DC Sodium Chloride (Normal Saline Flush) 10 ml 1X PRN PRN 02/17/17 09:30 02/18/17 09:29 DC Sodium Chloride 90 meq/Potassium Chloride 50 meq/ Potassium Phosphate 13.6 mmol/Magnesium Sulfate 10 meq/ Calcium Gluconate 10 meq/ Multivitamins 10 ml/Chromium/ Copper/Manganese/ Seleni/Zn 1 ml/ Total Parenteral Nutrition/Amino Acids/Dextrose/ Fat Emulsion Intravenous 1,512 ml @ 63 mls/hr TPN CONT 02/18/17 22:00 02/19/17 21:59 02/18/17 22:02 63 MLS/HR Vancomycin HCl (Vanco Per Pharmacy) 1 each PRN DAILY PRN 02/14/17 22:00 02/17/17 08:16 DC 02/17/17 07:34 1 EACH Vancomycin HCl 1.75 gm/Sodium Chloride 500 ml @ 250 mls/hr 1X ONCE 02/14/17 22:15 02/15/17 00:14 DC 02/14/17 22:21 250 MLS/HR Vancomycin HCl 500 mg/Sodium Chloride 100 ml @ 100 mls/hr 1X ONCE 02/17/17 15:00 02/17/17 15:00 DC Lab Laboratory Tests Test 02/19/17 06:00 02/19/17 06:04 White Blood Count 72.0 x10^3/uL (4.0-11.0) Red Blood Count 2.66 x10^6/uL (3.50-5.40) Hemoglobin 7.6 g/dL (12.0-15.5) Hematocrit 23.0 % (36.0-47.0) Mean Corpuscular Volume 87 fL (79-100) Mean Corpuscular Hemoglobin 29 pg (25-35) Mean Corpuscular Hemoglobin Concent 33 g/dL (31-37) Red Cell Distribution Width 16.7 % (11.5-14.5) Platelet Count 313 x10^3/uL (140-400) Neutrophils (%) (Auto) 97 % (31-73) Lymphocytes (%) (Auto) 1 % (24-48) Monocytes (%) (Auto) 1 % (0-9) Eosinophils (%) (Auto) 0 % (0-3) Basophils (%) (Auto) 1 % (0-3) Neutrophils # (Auto) 70.0 x10^3uL (1.8-7.7) Lymphocytes # (Auto) 0.7 x10^3/uL (1.0-4.8) Monocytes # (Auto) 0.7 x10^3/uL (0.0-1.1) Eosinophils # (Auto) 0.2 x10^3/uL (0.0-0.7) Basophils # (Auto) 0.4 x10^3/uL (0.0-0.2) Segmented Neutrophils % 96 % (35-66) Band Neutrophils % 1 % (0-9) Lymphocytes % 1 % (24-48) Monocytes % 1 % (0-10) Eosinophils % 1 % (0-5) Platelet Estimate Adequate (ADEQUATE) Large Platelets Present Anisocytosis Present Sodium Level 140 mmol/L (136-145) Potassium Level 3.6 mmol/L (3.5-5.1) Chloride Level 100 mmol/L (98-107) Carbon Dioxide Level 27 mmol/L (21-32) Anion Gap 13 (6-14) Blood Urea Nitrogen 19 mg/dL (7-20) Creatinine 2.3 mg/dL (0.6-1.0) Estimated GFR (Cockcroft-Gault) 25.4 Glucose Level 253 mg/dL (70-99) Calcium Level 8.2 mg/dL (8.5-10.1) Phosphorus Level 2.3 mg/dL (2.6-4.7) Magnesium Level 1.9 mg/dL (1.8-2.4) Triglycerides Level 109 mg/dL (0-150) Glucose (Fingerstick) 257 mg/dL (70-99) MARJAN GRANT MD Feb 19, 2017 11:59
--- NOTE | 2017-02-19 12:34 | PDOC ---
PROGRESS NOTES Subjective Subjective c/c - f/u of anemia/myelofibrosis Objective Objective Vital Signs Date Time Temp Pulse Resp B/P (MAP) Pulse Ox O2 Delivery O2 Flow Rate FiO2 02/19/17 11:43 100 Room Air 02/19/17 06:00 92 12 160/72 (101) 02/19/17 03:00 98.3 98.3 02/19/17 03:00 2.0 Intake and Output 02/20/17 07:00 Intake Total 200 ml Balance 200 ml Other 200 ml Physical Exam General: Alert, Oriented X3 Neuro: Normal speech Psych/Mental Status: Mental status NL Assessment Assessment Problems Medical Problems: (1) Anemia Status: Acute (2) Coagulopathy Status: Acute (3) Congestive heart failure Status: Acute (4) End stage renal disease Status: Acute (5) Hypoglycemia Status: Acute (6) Hypotension Status: Acute (7) Myelodysplastic syndrome Status: Acute IMPRESSION AND PLAN: 1. 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 She was off hydroxyurea for almost 2-3 weeks prior to this admission because of renal failure. Her blood counts are significantly worse with worsening WBC and worsening platelets. Hence, I resumed hydroxyurea 02/15/17. Elevated platelet counts in patients with essential thrombocythemia can also increase the risk of bleeding. Hence, it is essential to decrease the platelet counts with the help of hydroxyurea. I will continue to monitor WBC, hemoglobin, and platelet counts closely while she is on hydroxyurea. 2. Hematoma, intraabdominal, due to recent peritoneal dialysis catheter placement. Her INR is elevated at 1.8. She already received 3 units of FFP and s/p 1 dose of vitamin K 02/15/17. Her creatinine is 6.6 with BUN of 65. Patients with uncontrolled myeloproliferative disorder and the patients with uremia can have deficiency of von Willebrand factor. s/p 20 mcg of DDAVP 02/15/17 for management of the underlying hematoma. 3. Sepsis. Appreciate ID consultation. 4. Leukocytosis due to myelofibrosis. Worse at 107 on 02/17/17. Continue hydrea. Plan peripheral smear review by pathology. Improved to 72.0 5. Thrombocytosis due to myelofibrosis. Plan hydroxyurea as described above. Plt improved to 313. 6. Anemia - s/p transfusion, Hb 7.6. 7. Coagulopathy - s/p FFP/Vit K/DDAVP I d/w RN Comment Review of Relevant I have reviewed the following items laure (where applicable) has been applied. Labs Laboratory Tests Test 02/18/17 05:45 02/18/17 05:46 02/18/17 11:15 02/19/17 06:00 White Blood Count 73.9 x10^3/uL (4.0-11.0) 72.0 x10^3/uL (4.0-11.0) Red Blood Count 2.84 x10^6/uL (3.50-5.40) 2.66 x10^6/uL (3.50-5.40) Hemoglobin 8.1 g/dL (12.0-15.5) 7.6 g/dL (12.0-15.5) Hematocrit 24.5 % (36.0-47.0) 23.0 % (36.0-47.0) Mean Corpuscular Volume 86 fL (79-100) 87 fL (79-100) Mean Corpuscular Hemoglobin 28 pg (25-35) 29 pg (25-35) Mean Corpuscular Hemoglobin Concent 33 g/dL (31-37) 33 g/dL (31-37) Red Cell Distribution Width 16.3 % (11.5-14.5) 16.7 % (11.5-14.5) Platelet Count 360 x10^3/uL (140-400) 313 x10^3/uL (140-400) Neutrophils (%) (Auto) 98 % (31-73) 97 % (31-73) Lymphocytes (%) (Auto) 1 % (24-48) 1 % (24-48) Monocytes (%) (Auto) 1 % (0-9) 1 % (0-9) Eosinophils (%) (Auto) 0 % (0-3) 0 % (0-3) Basophils (%) (Auto) 0 % (0-3) 1 % (0-3) Neutrophils # (Auto) 72.3 x10^3uL (1.8-7.7) 70.0 x10^3uL (1.8-7.7) Lymphocytes # (Auto) 0.5 x10^3/uL (1.0-4.8) 0.7 x10^3/uL (1.0-4.8) Monocytes # (Auto) 0.8 x10^3/uL (0.0-1.1) 0.7 x10^3/uL (0.0-1.1) Eosinophils # (Auto) 0.1 x10^3/uL (0.0-0.7) 0.2 x10^3/uL (0.0-0.7) Basophils # (Auto) 0.1 x10^3/uL (0.0-0.2) 0.4 x10^3/uL (0.0-0.2) Segmented Neutrophils % 90 % (35-66) 96 % (35-66) Band Neutrophils % 7 % (0-9) 1 % (0-9) Lymphocytes % 2 % (24-48) 1 % (24-48) Basophils % 1 % (0-3) Nucleated Red Blood Cells 3 Toxic Granulation Slight Toxic Vacuolation Present Platelet Estimate Adequate (ADEQUATE) Adequate (ADEQUATE) Large Platelets Present Present Polychromasia Present Anisocytosis Present Present Sodium Level 136 mmol/L (136-145) 140 mmol/L (136-145) Potassium Level 3.5 mmol/L (3.5-5.1) 3.6 mmol/L (3.5-5.1) Chloride Level 97 mmol/L (98-107) 100 mmol/L (98-107) Carbon Dioxide Level 20 mmol/L (21-32) 27 mmol/L (21-32) Anion Gap 19 (6-14) 13 (6-14) Blood Urea Nitrogen 24 mg/dL (7-20) 19 mg/dL (7-20) Creatinine 2.6 mg/dL (0.6-1.0) 2.3 mg/dL (0.6-1.0) Estimated GFR (Cockcroft-Gault) 22.0 25.4 Glucose Level 163 mg/dL (70-99) 253 mg/dL (70-99) Calcium Level 7.7 mg/dL (8.5-10.1) 8.2 mg/dL (8.5-10.1) Glucose (Fingerstick) 145 mg/dL (70-99) Lactic Acid Level 1.0 mmol/L (0.4-2.0) Monocytes % 1 % (0-10) Eosinophils % 1 % (0-5) Phosphorus Level 2.3 mg/dL (2.6-4.7) Magnesium Level 1.9 mg/dL (1.8-2.4) Triglycerides Level 109 mg/dL (0-150) Test 02/19/17 06:04 Glucose (Fingerstick) 257 mg/dL (70-99) Laboratory Tests Test 02/19/17 06:00 02/19/17 06:04 White Blood Count 72.0 x10^3/uL (4.0-11.0) Red Blood Count 2.66 x10^6/uL (3.50-5.40) Hemoglobin 7.6 g/dL (12.0-15.5) Hematocrit 23.0 % (36.0-47.0) Mean Corpuscular Volume 87 fL (79-100) Mean Corpuscular Hemoglobin 29 pg (25-35) Mean Corpuscular Hemoglobin Concent 33 g/dL (31-37) Red Cell Distribution Width 16.7 % (11.5-14.5) Platelet Count 313 x10^3/uL (140-400) Neutrophils (%) (Auto) 97 % (31-73) Lymphocytes (%) (Auto) 1 % (24-48) Monocytes (%) (Auto) 1 % (0-9) Eosinophils (%) (Auto) 0 % (0-3) Basophils (%) (Auto) 1 % (0-3) Neutrophils # (Auto) 70.0 x10^3uL (1.8-7.7) Lymphocytes # (Auto) 0.7 x10^3/uL (1.0-4.8) Monocytes # (Auto) 0.7 x10^3/uL (0.0-1.1) Eosinophils # (Auto) 0.2 x10^3/uL (0.0-0.7) Basophils # (Auto) 0.4 x10^3/uL (0.0-0.2) Segmented Neutrophils % 96 % (35-66) Band Neutrophils % 1 % (0-9) Lymphocytes % 1 % (24-48) Monocytes % 1 % (0-10) Eosinophils % 1 % (0-5) Platelet Estimate Adequate (ADEQUATE) Large Platelets Present Anisocytosis Present Sodium Level 140 mmol/L (136-145) Potassium Level 3.6 mmol/L (3.5-5.1) Chloride Level 100 mmol/L (98-107) Carbon Dioxide Level 27 mmol/L (21-32) Anion Gap 13 (6-14) Blood Urea Nitrogen 19 mg/dL (7-20) Creatinine 2.3 mg/dL (0.6-1.0) Estimated GFR (Cockcroft-Gault) 25.4 Glucose Level 253 mg/dL (70-99) Calcium Level 8.2 mg/dL (8.5-10.1) Phosphorus Level 2.3 mg/dL (2.6-4.7) Magnesium Level 1.9 mg/dL (1.8-2.4) Triglycerides Level 109 mg/dL (0-150) Glucose (Fingerstick) 257 mg/dL (70-99) Microbiology 02/14/17 Blood Culture - Preliminary, Resulted NO GROWTH AFTER 4 DAYS 02/14/17 Gram Stain - Final, Complete 02/14/17 Urine Culture - Final, Complete 02/14/17 Urine Culture Result 1 (DENNY) - Final, Complete Medications Current Medications Dextrose (Dextrose 50%-Water Syringe) 25 gm STK-MED ONCE IV ; Start 02/14/17 at 21:20; Stop 02/14/17 at 21:21; Status DC Sodium Chloride 2,040 ml @ 510 mls/hr Q4H IV Last administered on 02/14/17 21 :33; Start 02/14/17 at 21:33; Stop 02/14/17 at 22:05; Status DC Vancomycin HCl (Vanco Per Pharmacy) 1 each PRN DAILY PRN MC SEE COMMENTS Last administered on 02/17/17 07:34; Start 02/14/17 at 22:00; Stop 02/17/17 at 08:16 ; Status DC Levofloxacin/ Dextrose (Levaquin Per Pharmacy) 1 each PRN DAILY PRN MC SEE COMMENTS; Start 02/14/17 at 23:00; Stop 02/15/17 at 07:38; Status DC Vancomycin HCl 1.75 gm/Sodium Chloride 500 ml @ 250 mls/hr 1X ONCE IV Last administered on 02/14/17 22:21; Start 02/14/17 at 22:15; Stop 02/15/17 at 00:14 ; Status DC Sodium Chloride 1,000 ml @ 510 mls/hr Q1H58M IV ; Start 02/14/17 at 22:15; Stop 02/15/17 at 01:32; Status DC Levofloxacin/ Dextrose 100 ml @ 100 mls/hr Q48H IV Last administered on 22:58; Start 02/14/17 at 23:00; Stop 02/15/17 at 07:38; Status DC Dextrose (Dextrose 50%-Water Syringe) 25 gm 1X ONCE IV Last administered on 22:52; Start 02/14/17 at 23:00; Stop 02/14/17 at 23:01; Status DC Dextrose (Dextrose 50%-Water Syringe) 25 gm 1X ONCE IV ; Start 02/14/17 at 23: 00; Stop 02/14/17 at 23:01; Status DC Furosemide (Lasix) 40 mg 1X PRN PRN IV blood transfusion; Start 02/14/17 at 23: 00; Stop 02/15/17 at 22:59; Status DC Dopamine HCl/ Dextrose 250 ml @ 12.688 mls/ hr CONT PRN IV SEE I/O RECORD Last administered on 02/14/17 23:44; Start 02/14/17 at 23:15 Ondansetron HCl (Zofran) 4 mg PRN Q6HRS PRN IV NAUSEA/VOMITING Last administered on 02/17/17 12:29; Start 02/14/17 at 23:15 Famotidine (Pepcid) 10 mg BID IVP Last administered on 02/19/17 09:26; Start 02/15/17 at 09:00 Acetaminophen (Tylenol) 120 mg PRN Q6HRS PRN ND MILD PAIN / TEMP; Start at 23:15 Acetaminophen (Tylenol) 500 mg PRN Q6HRS PRN PO MILD PAIN / TEMP; Start at 23:15 Vancomycin HCl 1 each 1X ONCE MC ; Start 02/16/17 at 22:30; Stop 02/16/17 at 22 :30; Status DC Ondansetron HCl (Zofran) 4 mg PRN Q8HRS PRN IV NAUSEA/VOMITING; Start 02/14/17 at 23:45; Stop 02/15/17 at 23:44; Status DC Dextrose/Sodium Chloride 1,000 ml @ 125 mls/hr 1X ONCE IV ; Start 02/14/17 at 23:45; Stop 02/15/17 at 07:44; Status DC Piperacillin Sod/ Tazobactam Sod 2.25 gm/Sodium Chloride 50 ml @ 100 mls/hr Q6HRS IV Last administered on 02/19/17 05:44; Start 02/15/17 at 07:30 Micafungin Sodium 100 mg/Dextrose 100 ml @ 100 mls/hr Q24H IV Last administered on 02/19/17 09:25; Start 02/15/17 at 08:00 Fentanyl Citrate (Fentanyl 2ml Vial) 50 mcg PRN Q2HR PRN IV PAIN Last administered on 02/18/17 20:52; Start 02/15/17 at 09:15 Morphine Sulfate 4 mg PRN Q2HR PRN IV PAIN Last administered on 02/19/17 11:43 ; Start 02/15/17 at 09:45 Sodium Chloride 1,000 ml @ 75 mls/hr [id number] IV Last administered on 17:42; Start 02/15/17 at 10:00; Stop 02/16/17 at 17:54; Status DC Phytonadione (Vitamin K Ampule) 10 mg 1X ONCE SQ Last administered on 11:35; Start 02/15/17 at 10:30; Stop 02/15/17 at 10:33; Status DC Desmopressin Acetate 20 mcg/ Sodium Chloride 55 ml @ 102 mls/hr 1X ONCE IV Last administered on 02/15/17 11:35; Start 02/15/17 at 11:00; Stop 02/15/17 at 11:32; Status DC Hydroxyurea (Hydrea) 500 mg QMWF PO Last administered on 02/17/17 18:26; Start 02/15/17 at 11:00 Lidocaine/Sodium Bicarbonate (Buffered Lidocaine 1%) 20 ml STK-MED ONCE IJ ; Start 02/15/17 at 11:23; Stop 02/15/17 at 11:24; Status DC Heparin Sodium/ Sodium Chloride 500 ml @ As Directed STK-MED ONCE .ROUTE ; Start 02/15/17 at 11:23; Stop 02/15/17 at 11:24; Status DC Heparin Sodium (Porcine) (Heparin Sodium) 10,000 unit STK-MED ONCE .ROUTE ; Start 02/15/17 at 11:49; Stop 02/15/17 at 11:50; Status DC Lidocaine/Sodium Bicarbonate (Buffered Lidocaine 1%) 3 ml 1X ONCE IJ Last administered on 02/15/17 12:14; Start 02/15/17 at 12:00; Stop 02/15/17 at 12:14 ; Status DC Heparin Sodium/ Sodium Chloride 60 unit 1X ONCE IV Last administered on 12:17; Start 02/15/17 at 12:00; Stop 02/15/17 at 12:14; Status DC Heparin Sodium (Porcine) (Heparin Sodium) 2,500 unit 1X ONCE INT CAT Last administered on 02/15/17 12:17; Start 02/15/17 at 12:00; Stop 02/15/17 at 12:14 ; Status DC Vancomycin HCl 1 each 1X ONCE MC Last administered on 02/16/17 05:00; Start 02/16/17 at 05:00; Stop 02/16/17 at 05:01; Status DC Sodium Chloride 1,000 ml @ 1,000 mls/hr Q1H PRN IV hypotension; Start 02/15/17 at 13:56; Stop 02/15/17 at 19:55; Status DC Sodium Chloride 1,000 ml @ 400 mls/hr Q2H30M PRN IV PATENCY; Start 02/15/17 at 13:56; Stop 02/16/17 at 01:55; Status DC Info (PHARMACY MONITORING -- do not chart) 1 each PRN DAILY PRN MC SEE COMMENTS ; Start 02/15/17 at 14:00; Status UNV Info (PHARMACY MONITORING -- do not chart) 1 each PRN DAILY PRN MC SEE COMMENTS ; Start 02/15/17 at 14:00; Stop 02/17/17 at 11:20; Status DC Albuterol Sulfate (Ventolin Neb Soln) 2.5 mg PRN Q4HRS PRN NEB SHORTNESS OF BREATH; Start 02/15/17 at 15:30 Vancomycin HCl 500 mg/Sodium Chloride 100 ml @ 100 mls/hr 1X ONCE IV Last administered on 02/16/17 17:41; Start 02/16/17 at 16:00; Stop 02/16/17 at 16:59 ; Status DC Sodium Chloride 1,000 ml @ 1,000 mls/hr Q1H PRN IV hypotension; Start 02/16/17 at 13:41; Stop 02/16/17 at 19:40; Status DC Sodium Chloride 1,000 ml @ 400 mls/hr Q2H30M PRN IV PATENCY; Start 02/16/17 at 13:41; Stop 02/17/17 at 01:40; Status DC Info (PHARMACY MONITORING -- do not chart) 1 each PRN DAILY PRN MC SEE COMMENTS ; Start 02/16/17 at 13:45; Stop 02/17/17 at 11:20; Status DC Vancomycin HCl 500 mg/Sodium Chloride 100 ml @ 100 mls/hr 1X ONCE IV ; Start 02/17/17 at 15:00; Stop 02/17/17 at 15:00; Status DC Sodium Chloride 1,000 ml @ 1,000 mls/hr Q1H PRN IV hypotension; Start 02/17/17 at 09:24; Stop 02/17/17 at 15:23; Status DC Sodium Chloride (Normal Saline Flush) 10 ml 1X PRN PRN IV AP catheter pack; Start 02/17/17 at 09:30; Stop 02/18/17 at 09:29; Status DC Sodium Chloride (Normal Saline Flush) 10 ml 1X PRN PRN IV INSURANCE CLAIMS REPRESENTATIVE catheter pack; Start 02/17/17 at 09:30; Stop 02/18/17 at 09:29; Status DC Sodium Chloride 1,000 ml @ 400 mls/hr Q2H30M PRN IV PATENCY; Start 02/17/17 at 09:24; Stop 02/17/17 at 21:23; Status DC Info (PHARMACY MONITORING -- do not chart) 1 each PRN DAILY PRN MC SEE COMMENTS ; Start 02/17/17 at 09:30 Albumin Human 100 ml @ 100 mls/hr 1X STAT IV Last administered on 02/17/17 09:49; Start 02/17/17 at 09:35; Stop 02/17/17 at 10:34; Status DC Albumin Human 100 ml @ 100 mls/hr 1X ONCE IV Last administered on 02/17/17t 10:46; Start 02/17/17 at 10:45; Stop 02/17/17 at 11:44; Status DC Iohexol (Omnipaque 300 Mg/ml) 75 ml 1X ONCE IV ; Start 02/17/17 at 11:15; Stop 02/17/17 at 11:21; Status DC Info 1 each PRN DAILY PRN MC SEE COMMENTS Last administered on 02/19/17 11:38 ; Start 02/17/17 at 18:00 Sodium Chloride 90 meq/Potassium Chloride 50 meq/ Potassium Phosphate 13.6 mmol/ Magnesium Sulfate 10 meq/ Calcium Gluconate 10 meq/ Multivitamins 10 ml/Chromium / Copper/Manganese/ Seleni/Zn 1 ml/ Total Parenteral Nutrition/Amino Acids/ Dextrose/ Fat Emulsion Intravenous 1,512 ml @ 63 mls/hr TPN CONT IV Last administered on 02/18/17 22:02; Start 02/18/17 at 22:00; Stop 02/19/17 at 21:59 Iohexol (Omnipaque 300 Mg/ml) 75 ml 1X ONCE IV Last administered on 02/18/17 09:38; Start 02/18/17 at 09:30; Stop 02/18/17 at 09:31; Status DC Sodium Chloride 1,000 ml @ 1,000 mls/hr Q1H PRN IV hypotension; Start 02/18/17 at 10:09; Stop 02/18/17 at 16:08; Status DC Albumin Human 200 ml @ 200 mls/hr 1X PRN PRN IV Hypotension; Start 02/18/17 at 10:15; Stop 02/18/17 at 16:14; Status DC Sodium Chloride 1,000 ml @ 400 mls/hr Q2H30M PRN IV PATENCY; Start 02/18/17 at 10:09; Stop 02/18/17 at 22:08; Status DC Info (PHARMACY MONITORING -- do not chart) 1 each PRN DAILY PRN MC SEE COMMENTS ; Start 02/18/17 at 10:15; Status UNV Info (PHARMACY MONITORING -- do not chart) 1 each PRN DAILY PRN MC SEE COMMENTS ; Start 02/18/17 at 10:15; Status UNV Potassium Phosphate 13.6 mmol/Sodium Chloride 104.5333 ml @ 52.267 m... 1X ONCE IV Last administered on 02/19/17 09:25; Start 02/19/17 at 09:00; Stop at 10:59; Status DC Active Scripts Active Reported Lantus Solostar (Insulin Glargine,Hum.rec.anlog) 100 Unit/1 Ml Insuln.pen 22 Unit SQ QHS Droxia (Hydroxyurea) 200 Mg Capsule 200 Mg PO DAILY Feosol (Ferrous Sulfate) 325 Mg Tablet 325 Mg PO DAILY Coreg (Carvedilol) 12.5 Mg Tablet 1 Tab PO BID Bumetanide 2 Mg Tablet 2 Tab PO BID Aspir 81 (Aspirin) 81 Mg Tablet.dr 1 Tab PO DAILY Allopurinol 300 Mg Tablet 1 Tab PO DAILY Advair 250-50 Diskus (Fluticasone/Salmeterol) 1 Each Disk.w.dev 1 Puff IH Q12HR Zetia (Ezetimibe) 10 Mg Tablet 0.5 Tab PO DAILY Zemplar (Paricalcitol) 1 Mcg Capsule 1 Cap PO DAILY Sodium Bicarbonate 650 Mg Tablet 850 Mg PO BID Sensipar (Cinacalcet Hcl) 30 Mg Tablet 30 Mg PO QODAY Renvela (Sevelamer Carbonate) 800 Mg Tablet 2 Tab PO TID Proair Hfa Inhaler (Albuterol Sulfate) 8.5 Gm Hfa.aer.ad 2 Puff INH PRN Q4HRS PRN Omeprazole 40 Mg Capsule.dr 1 Cap PO DAILY Percocet 5-325 Mg Tablet (Oxycodone/Acetaminophen) 1 Each Tablet 1-2 Tab PO PRN Q6HRS PRN Novolog Flexpen (Insulin Aspart) 100 Unit/1 Ml Insuln.pen 15 Unit SQ DAILY Novolog Flexpen (Insulin Aspart) 100 Unit/1 Ml Insuln.pen 12 Unit SQ BIDACBL Norvasc (Amlodipine Besylate) 10 Mg Tablet 10 Mg PO DAILY Miralax (Polyethylene Glycol 3350) 17 Gm Powd.pack 1 Packet PO DAILY Lipitor (Atorvastatin Calcium) 40 Mg Tablet 1 Tab PO DAILY Lidocaine 1 Each Adh..patch 1 Each TP DAILY Vitals/I & O Vital Sign - Last 24 Hours 02/18/17 02/18/17 02/18/17 02/18/17 13:00 14:00 15:00 16:00 Temp 98.2 98.2 Pulse 82 98 80 80 Resp 12 13 13 18 B/P (MAP) 139/60 (86) 139/60 (86) 129/53 (78) 133/87 (102) Pulse Ox 100 99 99 98 O2 Delivery Room Air Room Air Room Air Room Air 02/18/17 02/18/17 02/18/17 02/18/17 16:00 17:00 18:00 19:00 Temp 98.3 98.3 Pulse 81 85 84 Resp 13 14 11 B/P (MAP) 138/59 (85) 165/63 (97) 138/64 (88) Pulse Ox 99 98 99 O2 Delivery Room Air Room Air Room Air Room Air 02/18/17 02/18/17 02/18/17 02/18/17 20:00 20:00 20:52 21:00 Pulse 90 88 Resp 15 14 13 B/P (MAP) 165/63 (97) 154/72 (99) Pulse Ox 98 98 100 O2 Delivery Room Air Room Air Room Air Room Air O2 Flow Rate 2.0 02/18/17 02/18/17 02/18/17 02/19/17 21:22 22:00 23:00 00:00 Pulse 88 92 Resp 10 13 B/P (MAP) 157/68 (97) 135/62 (86) Pulse Ox 98 100 100 O2 Delivery Room Air Room Air Room Air Room Air O2 Flow Rate 2.0 02/19/17 02/19/17 02/19/17 02/19/17 00:00 00:11 00:41 01:00 Pulse 92 93 Resp 14 14 10 B/P (MAP) 143/66 (91) 142/57 (85) Pulse Ox 100 100 100 100 O2 Delivery Room Air Room Air Room Air Room Air 02/19/17 02/19/17 02/19/17 02/19/17 02:00 03:00 03:00 04:00 Temp 98.3 98.3 98.3 98.3 Pulse 92 92 92 92 Resp 12 13 12 B/P (MAP) 133/59 (83) 133/59 (83) 134/60 (84) 149/68 (95) Pulse Ox 100 100 100 99 O2 Delivery Room Air Room Air Room Air Room Air O2 Flow Rate 2.0 02/19/17 02/19/17 02/19/17 02/19/17 04:00 05:00 06:00 08:00 Pulse 92 92 Resp 13 12 B/P (MAP) 141/65 (90) 160/72 (101) Pulse Ox 98 98 O2 Delivery Room Air Room Air Room Air Room Air 02/19/17 11:43 Pulse Ox 100 O2 Delivery Room Air Intake and Output 02/19/17 02/19/17 02/20/17 15:00 23:00 07:00 Intake Total 200 ml Balance 200 ml Nutrition Consultation Dietary Evaluation: Recommendations by RD: Increase Calorie Intake Comments: PPN/TPN if PO intake on liquid diet unable to meet > 75% needs Expected Outcomes/Goals: Pt to tolerate TF at goal (Novasource Renal@35 ml/hr) Intake to meet > 75% est needs Interpretation of weight loss: >1-2% in 1 week Malnutrition Findings: Food and Nutrition Intake (Mod: <75% est energy req 7days Weight Status: Appropriate ALPESH BROWN MD Feb 19, 2017 12:34
--- NOTE | 2017-02-19 16:15 | PDOC ---
PROGRESS NOTES Chief Complaint Chief Complaint 1. Severe Anemia 2., Hx MDS with WBC 80K 3. Severe thormbocytosis- likely from the anemia 4. ESRD recent PD cath insertion [facility] last week 5. TJ on ESRD 6. Elevated LFTs, alk phos in the background of severe hypotension and MDS 7. Hypotensive shock, hemorrhagic? anemia? SIRS vs sepsis 8. Elevated INR 9. Abd pain 10. Hypothermia, hypoglycemia 11. Acute metabolic enceph History of Present Illness History of Present Illness Pt was admitted for sepsis and placed in ICU. No acute overnight events. Dobbhoff in place. Receiving TPN. Stated on liquid diet today and tolerating well. Dressing was CDI. Spoke with pt and family this AM. Pt was transferred up to medical floor. Vitals Vitals Vital Signs Date Time Temp Pulse Resp B/P (MAP) Pulse Ox O2 Delivery O2 Flow Rate FiO2 02/19/17 12:00 Room Air 02/19/17 12:00 98.1 94 13 133/72 (92) 98 2.0 98.1 Physical Exam General: Alert, Oriented X3 Heart: Normal S1, Normal S2 Lungs: Crackles Abdomen: Soft, No tenderness Extremities: No clubbing, No cyanosis Skin: No rashes, No significant lesion Labs LABS Laboratory Tests Test 02/19/17 06:00 02/19/17 06:04 White Blood Count 72.0 x10^3/uL (4.0-11.0) Red Blood Count 2.66 x10^6/uL (3.50-5.40) Hemoglobin 7.6 g/dL (12.0-15.5) Hematocrit 23.0 % (36.0-47.0) Mean Corpuscular Volume 87 fL (79-100) Mean Corpuscular Hemoglobin 29 pg (25-35) Mean Corpuscular Hemoglobin Concent 33 g/dL (31-37) Red Cell Distribution Width 16.7 % (11.5-14.5) Platelet Count 313 x10^3/uL (140-400) Neutrophils (%) (Auto) 97 % (31-73) Lymphocytes (%) (Auto) 1 % (24-48) Monocytes (%) (Auto) 1 % (0-9) Eosinophils (%) (Auto) 0 % (0-3) Basophils (%) (Auto) 1 % (0-3) Neutrophils # (Auto) 70.0 x10^3uL (1.8-7.7) Lymphocytes # (Auto) 0.7 x10^3/uL (1.0-4.8) Monocytes # (Auto) 0.7 x10^3/uL (0.0-1.1) Eosinophils # (Auto) 0.2 x10^3/uL (0.0-0.7) Basophils # (Auto) 0.4 x10^3/uL (0.0-0.2) Segmented Neutrophils % 96 % (35-66) Band Neutrophils % 1 % (0-9) Lymphocytes % 1 % (24-48) Monocytes % 1 % (0-10) Eosinophils % 1 % (0-5) Platelet Estimate Adequate (ADEQUATE) Large Platelets Present Anisocytosis Present Sodium Level 140 mmol/L (136-145) Potassium Level 3.6 mmol/L (3.5-5.1) Chloride Level 100 mmol/L (98-107) Carbon Dioxide Level 27 mmol/L (21-32) Anion Gap 13 (6-14) Blood Urea Nitrogen 19 mg/dL (7-20) Creatinine 2.3 mg/dL (0.6-1.0) Estimated GFR (Cockcroft-Gault) 25.4 Glucose Level 253 mg/dL (70-99) Calcium Level 8.2 mg/dL (8.5-10.1) Phosphorus Level 2.3 mg/dL (2.6-4.7) Magnesium Level 1.9 mg/dL (1.8-2.4) Triglycerides Level 109 mg/dL (0-150) Glucose (Fingerstick) 257 mg/dL (70-99) Review of Systems Review of Systems Pt complains of fatigue Pt complains of hunger Assessment and Plan Assessmemt and Plan Problems Medical Problems: (1) Anemia Status: Acute (2) Coagulopathy Status: Acute (3) Congestive heart failure Status: Acute (4) End stage renal disease Status: Acute (5) Hypoglycemia Status: Acute (6) Hypotension Status: Acute (7) Myelodysplastic syndrome Status: Acute Pt seen in ICU Hypotensive shock, hemorrhagic? anemia? 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 Labs Laboratory Tests Test 02/18/17 05:45 02/18/17 05:46 02/18/17 11:15 02/19/17 06:00 White Blood Count 73.9 x10^3/uL (4.0-11.0) 72.0 x10^3/uL (4.0-11.0) Red Blood Count 2.84 x10^6/uL (3.50-5.40) 2.66 x10^6/uL (3.50-5.40) Hemoglobin 8.1 g/dL (12.0-15.5) 7.6 g/dL (12.0-15.5) Hematocrit 24.5 % (36.0-47.0) 23.0 % (36.0-47.0) Mean Corpuscular Volume 86 fL (79-100) 87 fL (79-100) Mean Corpuscular Hemoglobin 28 pg (25-35) 29 pg (25-35) Mean Corpuscular Hemoglobin Concent 33 g/dL (31-37) 33 g/dL (31-37) Red Cell Distribution Width 16.3 % (11.5-14.5) 16.7 % (11.5-14.5) Platelet Count 360 x10^3/uL (140-400) 313 x10^3/uL (140-400) Neutrophils (%) (Auto) 98 % (31-73) 97 % (31-73) Lymphocytes (%) (Auto) 1 % (24-48) 1 % (24-48) Monocytes (%) (Auto) 1 % (0-9) 1 % (0-9) Eosinophils (%) (Auto) 0 % (0-3) 0 % (0-3) Basophils (%) (Auto) 0 % (0-3) 1 % (0-3) Neutrophils # (Auto) 72.3 x10^3uL (1.8-7.7) 70.0 x10^3uL (1.8-7.7) Lymphocytes # (Auto) 0.5 x10^3/uL (1.0-4.8) 0.7 x10^3/uL (1.0-4.8) Monocytes # (Auto) 0.8 x10^3/uL (0.0-1.1) 0.7 x10^3/uL (0.0-1.1) Eosinophils # (Auto) 0.1 x10^3/uL (0.0-0.7) 0.2 x10^3/uL (0.0-0.7) Basophils # (Auto) 0.1 x10^3/uL (0.0-0.2) 0.4 x10^3/uL (0.0-0.2) Segmented Neutrophils % 90 % (35-66) 96 % (35-66) Band Neutrophils % 7 % (0-9) 1 % (0-9) Lymphocytes % 2 % (24-48) 1 % (24-48) Basophils % 1 % (0-3) Nucleated Red Blood Cells 3 Toxic Granulation Slight Toxic Vacuolation Present Platelet Estimate Adequate (ADEQUATE) Adequate (ADEQUATE) Large Platelets Present Present Polychromasia Present Anisocytosis Present Present Sodium Level 136 mmol/L (136-145) 140 mmol/L (136-145) Potassium Level 3.5 mmol/L (3.5-5.1) 3.6 mmol/L (3.5-5.1) Chloride Level 97 mmol/L (98-107) 100 mmol/L (98-107) Carbon Dioxide Level 20 mmol/L (21-32) 27 mmol/L (21-32) Anion Gap 19 (6-14) 13 (6-14) Blood Urea Nitrogen 24 mg/dL (7-20) 19 mg/dL (7-20) Creatinine 2.6 mg/dL (0.6-1.0) 2.3 mg/dL (0.6-1.0) Estimated GFR (Cockcroft-Gault) 22.0 25.4 Glucose Level 163 mg/dL (70-99) 253 mg/dL (70-99) Calcium Level 7.7 mg/dL (8.5-10.1) 8.2 mg/dL (8.5-10.1) Glucose (Fingerstick) 145 mg/dL (70-99) Lactic Acid Level 1.0 mmol/L (0.4-2.0) Monocytes % 1 % (0-10) Eosinophils % 1 % (0-5) Phosphorus Level 2.3 mg/dL (2.6-4.7) Magnesium Level 1.9 mg/dL (1.8-2.4) Triglycerides Level 109 mg/dL (0-150) Test 02/19/17 06:04 Glucose (Fingerstick) 257 mg/dL (70-99) Laboratory Tests Test 02/19/17 06:00 02/19/17 06:04 White Blood Count 72.0 x10^3/uL (4.0-11.0) Red Blood Count 2.66 x10^6/uL (3.50-5.40) Hemoglobin 7.6 g/dL (12.0-15.5) Hematocrit 23.0 % (36.0-47.0) Mean Corpuscular Volume 87 fL (79-100) Mean Corpuscular Hemoglobin 29 pg (25-35) Mean Corpuscular Hemoglobin Concent 33 g/dL (31-37) Red Cell Distribution Width 16.7 % (11.5-14.5) Platelet Count 313 x10^3/uL (140-400) Neutrophils (%) (Auto) 97 % (31-73) Lymphocytes (%) (Auto) 1 % (24-48) Monocytes (%) (Auto) 1 % (0-9) Eosinophils (%) (Auto) 0 % (0-3) Basophils (%) (Auto) 1 % (0-3) Neutrophils # (Auto) 70.0 x10^3uL (1.8-7.7) Lymphocytes # (Auto) 0.7 x10^3/uL (1.0-4.8) Monocytes # (Auto) 0.7 x10^3/uL (0.0-1.1) Eosinophils # (Auto) 0.2 x10^3/uL (0.0-0.7) Basophils # (Auto) 0.4 x10^3/uL (0.0-0.2) Segmented Neutrophils % 96 % (35-66) Band Neutrophils % 1 % (0-9) Lymphocytes % 1 % (24-48) Monocytes % 1 % (0-10) Eosinophils % 1 % (0-5) Platelet Estimate Adequate (ADEQUATE) Large Platelets Present Anisocytosis Present Sodium Level 140 mmol/L (136-145) Potassium Level 3.6 mmol/L (3.5-5.1) Chloride Level 100 mmol/L (98-107) Carbon Dioxide Level 27 mmol/L (21-32) Anion Gap 13 (6-14) Blood Urea Nitrogen 19 mg/dL (7-20) Creatinine 2.3 mg/dL (0.6-1.0) Estimated GFR (Cockcroft-Gault) 25.4 Glucose Level 253 mg/dL (70-99) Calcium Level 8.2 mg/dL (8.5-10.1) Phosphorus Level 2.3 mg/dL (2.6-4.7) Magnesium Level 1.9 mg/dL (1.8-2.4) Triglycerides Level 109 mg/dL (0-150) Glucose (Fingerstick) 257 mg/dL (70-99) Microbiology 02/14/17 Blood Culture - Preliminary, Resulted NO GROWTH AFTER 4 DAYS 02/14/17 Gram Stain - Final, Complete 02/14/17 Urine Culture - Final, Complete 02/14/17 Urine Culture Result 1 (DENNY) - Final, Complete Medications Current Medications Dextrose (Dextrose 50%-Water Syringe) 25 gm STK-MED ONCE IV ; Start 02/14/17 at 21:20; Stop 02/14/17 at 21:21; Status DC Sodium Chloride 2,040 ml @ 510 mls/hr Q4H IV Last administered on 02/14/17 21 :33; Start 02/14/17 at 21:33; Stop 02/14/17 at 22:05; Status DC Vancomycin HCl (Vanco Per Pharmacy) 1 each PRN DAILY PRN MC SEE COMMENTS Last administered on 02/17/17 07:34; Start 02/14/17 at 22:00; Stop 02/17/17 at 08:16 ; Status DC Levofloxacin/ Dextrose (Levaquin Per Pharmacy) 1 each PRN DAILY PRN MC SEE COMMENTS; Start 02/14/17 at 23:00; Stop 02/15/17 at 07:38; Status DC Vancomycin HCl 1.75 gm/Sodium Chloride 500 ml @ 250 mls/hr 1X ONCE IV Last administered on 02/14/17 22:21; Start 02/14/17 at 22:15; Stop 02/15/17 at 00:14 ; Status DC Sodium Chloride 1,000 ml @ 510 mls/hr Q1H58M IV ; Start 02/14/17 at 22:15; Stop 02/15/17 at 01:32; Status DC Levofloxacin/ Dextrose 100 ml @ 100 mls/hr Q48H IV Last administered on 22:58; Start 02/14/17 at 23:00; Stop 02/15/17 at 07:38; Status DC Dextrose (Dextrose 50%-Water Syringe) 25 gm 1X ONCE IV Last administered on 22:52; Start 02/14/17 at 23:00; Stop 02/14/17 at 23:01; Status DC Dextrose (Dextrose 50%-Water Syringe) 25 gm 1X ONCE IV ; Start 02/14/17 at 23: 00; Stop 02/14/17 at 23:01; Status DC Furosemide (Lasix) 40 mg 1X PRN PRN IV blood transfusion; Start 02/14/17 at 23: 00; Stop 02/15/17 at 22:59; Status DC Dopamine HCl/ Dextrose 250 ml @ 12.688 mls/ hr CONT PRN IV SEE I/O RECORD Last administered on 02/14/17 23:44; Start 02/14/17 at 23:15 Ondansetron HCl (Zofran) 4 mg PRN Q6HRS PRN IV NAUSEA/VOMITING Last administered on 02/17/17 12:29; Start 02/14/17 at 23:15 Famotidine (Pepcid) 10 mg BID IVP Last administered on 02/19/17 09:26; Start 02/15/17 at 09:00 Acetaminophen (Tylenol) 120 mg PRN Q6HRS PRN IN MILD PAIN / TEMP; Start at 23:15 Acetaminophen (Tylenol) 500 mg PRN Q6HRS PRN PO MILD PAIN / TEMP; Start at 23:15 Vancomycin HCl 1 each 1X ONCE MC ; Start 02/16/17 at 22:30; Stop 02/16/17 at 22 :30; Status DC Ondansetron HCl (Zofran) 4 mg PRN Q8HRS PRN IV NAUSEA/VOMITING; Start 02/14/17 at 23:45; Stop 02/15/17 at 23:44; Status DC Dextrose/Sodium Chloride 1,000 ml @ 125 mls/hr 1X ONCE IV ; Start 02/14/17 at 23:45; Stop 02/15/17 at 07:44; Status DC Piperacillin Sod/ Tazobactam Sod 2.25 gm/Sodium Chloride 50 ml @ 100 mls/hr Q6HRS IV Last administered on 02/19/17 12:42; Start 02/15/17 at 07:30 Micafungin Sodium 100 mg/Dextrose 100 ml @ 100 mls/hr Q24H IV Last administered on 02/19/17 09:25; Start 02/15/17 at 08:00 Fentanyl Citrate (Fentanyl 2ml Vial) 50 mcg PRN Q2HR PRN IV PAIN Last administered on 02/18/17 20:52; Start 02/15/17 at 09:15 Morphine Sulfate 4 mg PRN Q2HR PRN IV PAIN Last administered on 02/19/17 15:37 ; Start 02/15/17 at 09:45 Sodium Chloride 1,000 ml @ 75 mls/hr [id number] IV Last administered on 17:42; Start 02/15/17 at 10:00; Stop 02/16/17 at 17:54; Status DC Phytonadione (Vitamin K Ampule) 10 mg 1X ONCE SQ Last administered on 11:35; Start 02/15/17 at 10:30; Stop 02/15/17 at 10:33; Status DC Desmopressin Acetate 20 mcg/ Sodium Chloride 55 ml @ 102 mls/hr 1X ONCE IV Last administered on 02/15/17 11:35; Start 02/15/17 at 11:00; Stop 02/15/17 at 11:32; Status DC Hydroxyurea (Hydrea) 500 mg QMWF PO Last administered on 02/17/17 18:26; Start 02/15/17 at 11:00 Lidocaine/Sodium Bicarbonate (Buffered Lidocaine 1%) 20 ml STK-MED ONCE IJ ; Start 02/15/17 at 11:23; Stop 02/15/17 at 11:24; Status DC Heparin Sodium/ Sodium Chloride 500 ml @ As Directed STK-MED ONCE .ROUTE ; Start 02/15/17 at 11:23; Stop 02/15/17 at 11:24; Status DC Heparin Sodium (Porcine) (Heparin Sodium) 10,000 unit STK-MED ONCE .ROUTE ; Start 02/15/17 at 11:49; Stop 02/15/17 at 11:50; Status DC Lidocaine/Sodium Bicarbonate (Buffered Lidocaine 1%) 3 ml 1X ONCE IJ Last administered on 02/15/17 12:14; Start 02/15/17 at 12:00; Stop 02/15/17 at 12:14 ; Status DC Heparin Sodium/ Sodium Chloride 60 unit 1X ONCE IV Last administered on 12:17; Start 02/15/17 at 12:00; Stop 02/15/17 at 12:14; Status DC Heparin Sodium (Porcine) (Heparin Sodium) 2,500 unit 1X ONCE INT CAT Last administered on 02/15/17 12:17; Start 02/15/17 at 12:00; Stop 02/15/17 at 12:14 ; Status DC Vancomycin HCl 1 each 1X ONCE MC Last administered on 02/16/17 05:00; Start 02/16/17 at 05:00; Stop 02/16/17 at 05:01; Status DC Sodium Chloride 1,000 ml @ 1,000 mls/hr Q1H PRN IV hypotension; Start 02/15/17 at 13:56; Stop 02/15/17 at 19:55; Status DC Sodium Chloride 1,000 ml @ 400 mls/hr Q2H30M PRN IV PATENCY; Start 02/15/17 at 13:56; Stop 02/16/17 at 01:55; Status DC Info (PHARMACY MONITORING -- do not chart) 1 each PRN DAILY PRN MC SEE COMMENTS ; Start 02/15/17 at 14:00; Status UNV Info (PHARMACY MONITORING -- do not chart) 1 each PRN DAILY PRN MC SEE COMMENTS ; Start 02/15/17 at 14:00; Stop 02/17/17 at 11:20; Status DC Albuterol Sulfate (Ventolin Neb Soln) 2.5 mg PRN Q4HRS PRN NEB SHORTNESS OF BREATH; Start 02/15/17 at 15:30 Vancomycin HCl 500 mg/Sodium Chloride 100 ml @ 100 mls/hr 1X ONCE IV Last administered on 02/16/17 17:41; Start 02/16/17 at 16:00; Stop 02/16/17 at 16:59 ; Status DC Sodium Chloride 1,000 ml @ 1,000 mls/hr Q1H PRN IV hypotension; Start 02/16/17 at 13:41; Stop 02/16/17 at 19:40; Status DC Sodium Chloride 1,000 ml @ 400 mls/hr Q2H30M PRN IV PATENCY; Start 02/16/17 at 13:41; Stop 02/17/17 at 01:40; Status DC Info (PHARMACY MONITORING -- do not chart) 1 each PRN DAILY PRN MC SEE COMMENTS ; Start 02/16/17 at 13:45; Stop 02/17/17 at 11:20; Status DC Vancomycin HCl 500 mg/Sodium Chloride 100 ml @ 100 mls/hr 1X ONCE IV ; Start 02/17/17 at 15:00; Stop 02/17/17 at 15:00; Status DC Sodium Chloride 1,000 ml @ 1,000 mls/hr Q1H PRN IV hypotension; Start 02/17/17 at 09:24; Stop 02/17/17 at 15:23; Status DC Sodium Chloride (Normal Saline Flush) 10 ml 1X PRN PRN IV AP catheter pack; Start 02/17/17 at 09:30; Stop 02/18/17 at 09:29; Status DC Sodium Chloride (Normal Saline Flush) 10 ml 1X PRN PRN IV HOLD WORKER catheter pack; Start 02/17/17 at 09:30; Stop 02/18/17 at 09:29; Status DC Sodium Chloride 1,000 ml @ 400 mls/hr Q2H30M PRN IV PATENCY; Start 02/17/17 at 09:24; Stop 02/17/17 at 21:23; Status DC Info (PHARMACY MONITORING -- do not chart) 1 each PRN DAILY PRN MC SEE COMMENTS ; Start 02/17/17 at 09:30 Albumin Human 100 ml @ 100 mls/hr 1X STAT IV Last administered on 02/17/17 09:49; Start 02/17/17 at 09:35; Stop 02/17/17 at 10:34; Status DC Albumin Human 100 ml @ 100 mls/hr 1X ONCE IV Last administered on 02/17/17t 10:46; Start 02/17/17 at 10:45; Stop 02/17/17 at 11:44; Status DC Iohexol (Omnipaque 300 Mg/ml) 75 ml 1X ONCE IV ; Start 02/17/17 at 11:15; Stop 02/17/17 at 11:21; Status DC Info 1 each PRN DAILY PRN MC SEE COMMENTS Last administered on 02/19/17 11:38 ; Start 02/17/17 at 18:00 Sodium Chloride 90 meq/Potassium Chloride 50 meq/ Potassium Phosphate 13.6 mmol/ Magnesium Sulfate 10 meq/ Calcium Gluconate 10 meq/ Multivitamins 10 ml/Chromium / Copper/Manganese/ Seleni/Zn 1 ml/ Total Parenteral Nutrition/Amino Acids/ Dextrose/ Fat Emulsion Intravenous 1,512 ml @ 63 mls/hr TPN CONT IV Last administered on 02/18/17 22:02; Start 02/18/17 at 22:00; Stop 02/19/17 at 21:59 Iohexol (Omnipaque 300 Mg/ml) 75 ml 1X ONCE IV Last administered on 02/18/17 09:38; Start 02/18/17 at 09:30; Stop 02/18/17 at 09:31; Status DC Sodium Chloride 1,000 ml @ 1,000 mls/hr Q1H PRN IV hypotension; Start 02/18/17 at 10:09; Stop 02/18/17 at 16:08; Status DC Albumin Human 200 ml @ 200 mls/hr 1X PRN PRN IV Hypotension; Start 02/18/17 at 10:15; Stop 02/18/17 at 16:14; Status DC Sodium Chloride 1,000 ml @ 400 mls/hr Q2H30M PRN IV PATENCY; Start 02/18/17 at 10:09; Stop 02/18/17 at 22:08; Status DC Info (PHARMACY MONITORING -- do not chart) 1 each PRN DAILY PRN MC SEE COMMENTS ; Start 02/18/17 at 10:15; Status UNV Info (PHARMACY MONITORING -- do not chart) 1 each PRN DAILY PRN MC SEE COMMENTS ; Start 02/18/17 at 10:15; Status UNV Potassium Phosphate 13.6 mmol/Sodium Chloride 104.5333 ml @ 52.267 m... 1X ONCE IV Last administered on 02/19/17 09:25; Start 02/19/17 at 09:00; Stop at 10:59; Status DC Sodium Chloride 90 meq/Potassium Chloride 50 meq/ Potassium Phosphate 13.6 mmol/ Magnesium Sulfate 10 meq/ Calcium Gluconate 10 meq/ Multivitamins 10 ml/Chromium / Copper/Manganese/ Seleni/Zn 1 ml/ Total Parenteral Nutrition/Amino Acids/ Dextrose/ Fat Emulsion Intravenous 1,512 ml @ 63 mls/hr TPN CONT IV ; Start at 22:00; Stop 02/20/17 at 21:59 Active Scripts Active Reported Lantus Solostar (Insulin Glargine,Hum.rec.anlog) 100 Unit/1 Ml Insuln.pen 22 Unit SQ QHS Droxia (Hydroxyurea) 200 Mg Capsule 200 Mg PO DAILY Feosol (Ferrous Sulfate) 325 Mg Tablet 325 Mg PO DAILY Coreg (Carvedilol) 12.5 Mg Tablet 1 Tab PO BID Bumetanide 2 Mg Tablet 2 Tab PO BID Aspir 81 (Aspirin) 81 Mg Tablet.dr 1 Tab PO DAILY Allopurinol 300 Mg Tablet 1 Tab PO DAILY Advair 250-50 Diskus (Fluticasone/Salmeterol) 1 Each Disk.w.dev 1 Puff IH Q12HR Zetia (Ezetimibe) 10 Mg Tablet 0.5 Tab PO DAILY Zemplar (Paricalcitol) 1 Mcg Capsule 1 Cap PO DAILY Sodium Bicarbonate 650 Mg Tablet 850 Mg PO BID Sensipar (Cinacalcet Hcl) 30 Mg Tablet 30 Mg PO QODAY Renvela (Sevelamer Carbonate) 800 Mg Tablet 2 Tab PO TID Proair Hfa Inhaler (Albuterol Sulfate) 8.5 Gm Hfa.aer.ad 2 Puff INH PRN Q4HRS PRN Omeprazole 40 Mg Capsule.dr 1 Cap PO DAILY Percocet 5-325 Mg Tablet (Oxycodone/Acetaminophen) 1 Each Tablet 1-2 Tab PO PRN Q6HRS PRN Novolog Flexpen (Insulin Aspart) 100 Unit/1 Ml Insuln.pen 15 Unit SQ DAILY Novolog Flexpen (Insulin Aspart) 100 Unit/1 Ml Insuln.pen 12 Unit SQ BIDACBL Norvasc (Amlodipine Besylate) 10 Mg Tablet 10 Mg PO DAILY Miralax (Polyethylene Glycol 3350) 17 Gm Powd.pack 1 Packet PO DAILY Lipitor (Atorvastatin Calcium) 40 Mg Tablet 1 Tab PO DAILY Lidocaine 1 Each Adh..patch 1 Each TP DAILY Vitals/I & O Vital Sign - Last 24 Hours 02/18/17 02/18/17 02/18/17 02/18/17 16:00 16:00 17:00 18:00 Temp 98.2 98.2 Pulse 80 81 85 Resp 18 13 14 B/P (MAP) 133/87 (102) 138/59 (85) 165/63 (97) Pulse Ox 98 99 98 O2 Delivery Room Air Room Air Room Air Room Air 02/18/17 02/18/17 02/18/17 02/18/17 19:00 20:00 20:00 20:52 Temp 98.3 98.3 Pulse 84 90 Resp 11 15 14 B/P (MAP) 138/64 (88) 165/63 (97) Pulse Ox 99 98 98 O2 Delivery Room Air Room Air Room Air Room Air O2 Flow Rate 2.0 02/18/17 02/18/17 02/18/17 02/18/17 21:00 21:22 22:00 23:00 Pulse 88 88 92 Resp 13 10 13 B/P (MAP) 154/72 (99) 157/68 (97) 135/62 (86) Pulse Ox 100 98 100 100 O2 Delivery Room Air Room Air Room Air Room Air O2 Flow Rate 2.0 02/19/17 02/19/17 02/19/17 02/19/17 00:00 00:00 00:11 00:41 Pulse 92 Resp 14 14 B/P (MAP) 143/66 (91) Pulse Ox 100 100 100 O2 Delivery Room Air Room Air Room Air Room Air 02/19/17 02/19/17 02/19/17 02/19/17 01:00 02:00 03:00 03:00 Temp 98.3 98.3 98.3 98.3 Pulse 93 92 92 92 Resp 10 12 13 B/P (MAP) 142/57 (85) 133/59 (83) 133/59 (83) 134/60 (84) Pulse Ox 100 100 100 100 O2 Delivery Room Air Room Air Room Air Room Air O2 Flow Rate 2.0 02/19/17 02/19/17 02/19/17 02/19/17 04:00 04:00 05:00 06:00 Pulse 92 92 92 Resp 12 13 12 B/P (MAP) 149/68 (95) 141/65 (90) 160/72 (101) Pulse Ox 99 98 98 O2 Delivery Room Air Room Air Room Air Room Air 02/19/17 02/19/17 02/19/17 02/19/17 07:00 08:00 08:00 09:00 Temp 98.5 98.5 Pulse 98 100 97 Resp 13 15 12 B/P (MAP) 171/71 (104) 160/68 (98) 163/74 (103) Pulse Ox 100 99 98 O2 Delivery Room Air Room Air Room Air Room Air O2 Flow Rate 2.0 02/19/17 02/19/17 02/19/17 02/19/17 10:00 11:00 11:43 12:00 Temp 98.1 98.1 Pulse 97 93 94 Resp 12 12 13 B/P (MAP) 165/70 (101) 150/68 (95) 133/72 (92) Pulse Ox 99 97 100 98 O2 Delivery Room Air Room Air Room Air Room Air O2 Flow Rate 2.0 02/19/17 12:00 O2 Delivery Room Air Intake and Output 02/19/17 02/19/17 02/20/17 15:00 23:00 07:00 Intake Total 400 ml Balance 400 ml Nutrition Consultation Dietary Evaluation: Recommendations by RD: Increase Calorie Intake Comments: PPN/TPN if PO intake on liquid diet unable to meet > 75% needs Expected Outcomes/Goals: Pt to tolerate TF at goal (Novasource Renal@35 ml/hr) Intake to meet > 75% est needs Interpretation of weight loss: >1-2% in 1 week Malnutrition Findings: Food and Nutrition Intake (Mod: <75% est energy req 7days Weight Status: Appropriate WING JORDAN III DO Feb 19, 2017 16:15
[2017-02-19] MEDS ORDERED: TOTAL PARENTERAL NUTRITION 1,424.9987 ML, AMINO ACIDS 10 % 60 GM, DEXTROSE 70 % IN WATE... IV SCH ×10 (22:00)
[2017-02-20] MEDS: PIPERACILLIN/TAZOBACTAM 2.25 GM in IV NORMAL SALINE 50ML 50 ML IV SCH ×2 (00:36→05:51)
[2017-02-20 03:47] VITALS: BP 176/98
[2017-02-20 06:01] LABS: BASO # 0.2 x10^3/uL (0.0-0.2); BASO % 0 % (0-3); EOS % 1 % (0-3); HEMATOCRIT 26.1 % (36.0-47.0); HEMOGLOBIN 8.5 g/dL (12.0-15.5); LYMPH # 0.7 x10^3/uL (1.0-4.8); LYMPH % 1 % (24-48); MEAN CORPUSCULAR HEMOGLOBIN 29 pg (25-35); MEAN CORPUSCULAR HGB CONC 33 g/dL (31-37); MEAN CORPUSCULAR VOLUME 88 fL (79-100); MONO % 1 % (0-9); NEUT % 97 % (31-73); PLATELET COUNT 301 x10^3/uL (140-400); RED BLOOD COUNT 2.97 x10^6/uL (3.50-5.40); RED CELL DISTRIBUTION WIDTH 17.6 % (11.5-14.5)
[2017-02-20] MEDS: MORPHINE SULFATE 4 MG/ML DISP.SYRIN. IV PRN (06:05)
[2017-02-20 06:06] LABS: WHITE BLOOD COUNT 67.1 x10^3/uL (4.0-11.0)
[2017-02-20 06:25] LABS: CALCIUM 9.1 mg/dL (8.5-10.1); GFR 18.7; MAGNESIUM 2.1 mg/dL (1.8-2.4); PHOSPHORUS 2.9 mg/dL (2.6-4.7); POTASSIUM 4.2 mmol/L (3.5-5.1)
[2017-02-20 07:00] VITALS: BP 171/97
[2017-02-20] MEDS: MICAFUNGIN 100 MG in IV DEXTROSE 5% 100 ML IV SCH (08:00)
[2017-02-20] MEDS: FAMOTIDINE 20 MG/2 ML VIAL IVP SCH (09:00)
--- NOTE | 2017-02-20 09:17 | PDOC ---
SURGICAL PROGRESS NOTE Subjective seen during dialysis some pain around PC cath site no n/v Vital Signs Vital Signs Date Time Temp Pulse Resp B/P (MAP) Pulse Ox O2 Delivery O2 Flow Rate FiO2 02/20/17 08:54 Room Air 02/20/17 07:00 98.1 115 18 171/97 (121) 95 98.1 02/19/17 20:00 2.0 General: Alert, Oriented X3, Cooperative, No acute distress Abdomen: Soft, Other (ttp pd site) Labs Laboratory Tests Test 02/18/17 11:15 02/19/17 06:00 02/19/17 06:04 02/20/17 05:55 Lactic Acid Level 1.0 mmol/L (0.4-2.0) White Blood Count 72.0 x10^3/uL (4.0-11.0) 67.1 x10^3/uL (4.0-11.0) Red Blood Count 2.66 x10^6/uL (3.50-5.40) 2.97 x10^6/uL (3.50-5.40) Hemoglobin 7.6 g/dL (12.0-15.5) 8.5 g/dL (12.0-15.5) Hematocrit 23.0 % (36.0-47.0) 26.1 % (36.0-47.0) Mean Corpuscular Volume 87 fL (79-100) 88 fL (79-100) Mean Corpuscular Hemoglobin 29 pg (25-35) 29 pg (25-35) Mean Corpuscular Hemoglobin Concent 33 g/dL (31-37) 33 g/dL (31-37) Red Cell Distribution Width 16.7 % (11.5-14.5) 17.6 % (11.5-14.5) Platelet Count 313 x10^3/uL (140-400) 301 x10^3/uL (140-400) Neutrophils (%) (Auto) 97 % (31-73) 97 % (31-73) Lymphocytes (%) (Auto) 1 % (24-48) 1 % (24-48) Monocytes (%) (Auto) 1 % (0-9) 1 % (0-9) Eosinophils (%) (Auto) 0 % (0-3) 1 % (0-3) Basophils (%) (Auto) 1 % (0-3) 0 % (0-3) Neutrophils # (Auto) 70.0 x10^3uL (1.8-7.7) 65.1 x10^3uL (1.8-7.7) Lymphocytes # (Auto) 0.7 x10^3/uL (1.0-4.8) 0.7 x10^3/uL (1.0-4.8) Monocytes # (Auto) 0.7 x10^3/uL (0.0-1.1) 0.7 x10^3/uL (0.0-1.1) Eosinophils # (Auto) 0.2 x10^3/uL (0.0-0.7) 0.4 x10^3/uL (0.0-0.7) Basophils # (Auto) 0.4 x10^3/uL (0.0-0.2) 0.2 x10^3/uL (0.0-0.2) Segmented Neutrophils % 96 % (35-66) Band Neutrophils % 1 % (0-9) Lymphocytes % 1 % (24-48) Monocytes % 1 % (0-10) Eosinophils % 1 % (0-5) Platelet Estimate Adequate (ADEQUATE) Large Platelets Present Anisocytosis Present Sodium Level 140 mmol/L (136-145) 138 mmol/L (136-145) Potassium Level 3.6 mmol/L (3.5-5.1) 4.2 mmol/L (3.5-5.1) Chloride Level 100 mmol/L (98-107) 100 mmol/L (98-107) Carbon Dioxide Level 27 mmol/L (21-32) 32 mmol/L (21-32) Anion Gap 13 (6-14) 6 (6-14) Blood Urea Nitrogen 19 mg/dL (7-20) 28 mg/dL (7-20) Creatinine 2.3 mg/dL (0.6-1.0) 3.0 mg/dL (0.6-1.0) Estimated GFR (Cockcroft-Gault) 25.4 18.7 Glucose Level 253 mg/dL (70-99) 476 mg/dL (70-99) Calcium Level 8.2 mg/dL (8.5-10.1) 9.1 mg/dL (8.5-10.1) Phosphorus Level 2.3 mg/dL (2.6-4.7) 2.9 mg/dL (2.6-4.7) Magnesium Level 1.9 mg/dL (1.8-2.4) 2.1 mg/dL (1.8-2.4) Triglycerides Level 109 mg/dL (0-150) Glucose (Fingerstick) 257 mg/dL (70-99) Test 02/20/17 08:01 Glucose (Fingerstick) 446 mg/dL (70-99) Laboratory Tests Test 02/20/17 05:55 02/20/17 08:01 White Blood Count 67.1 x10^3/uL (4.0-11.0) Red Blood Count 2.97 x10^6/uL (3.50-5.40) Hemoglobin 8.5 g/dL (12.0-15.5) Hematocrit 26.1 % (36.0-47.0) Mean Corpuscular Volume 88 fL (79-100) Mean Corpuscular Hemoglobin 29 pg (25-35) Mean Corpuscular Hemoglobin Concent 33 g/dL (31-37) Red Cell Distribution Width 17.6 % (11.5-14.5) Platelet Count 301 x10^3/uL (140-400) Neutrophils (%) (Auto) 97 % (31-73) Lymphocytes (%) (Auto) 1 % (24-48) Monocytes (%) (Auto) 1 % (0-9) Eosinophils (%) (Auto) 1 % (0-3) Basophils (%) (Auto) 0 % (0-3) Neutrophils # (Auto) 65.1 x10^3uL (1.8-7.7) Lymphocytes # (Auto) 0.7 x10^3/uL (1.0-4.8) Monocytes # (Auto) 0.7 x10^3/uL (0.0-1.1) Eosinophils # (Auto) 0.4 x10^3/uL (0.0-0.7) Basophils # (Auto) 0.2 x10^3/uL (0.0-0.2) Sodium Level 138 mmol/L (136-145) Potassium Level 4.2 mmol/L (3.5-5.1) Chloride Level 100 mmol/L (98-107) Carbon Dioxide Level 32 mmol/L (21-32) Anion Gap 6 (6-14) Blood Urea Nitrogen 28 mg/dL (7-20) Creatinine 3.0 mg/dL (0.6-1.0) Estimated GFR (Cockcroft-Gault) 18.7 Glucose Level 476 mg/dL (70-99) Calcium Level 9.1 mg/dL (8.5-10.1) Phosphorus Level 2.9 mg/dL (2.6-4.7) Magnesium Level 2.1 mg/dL (1.8-2.4) Glucose (Fingerstick) 446 mg/dL (70-99) Problem List Problems Medical Problems: (1) Anemia Status: Acute (2) Coagulopathy Status: Acute (3) Congestive heart failure Status: Acute (4) End stage renal disease Status: Acute (5) Hypoglycemia Status: Acute (6) Hypotension Status: Acute (7) Myelodysplastic syndrome Status: Acute Assessment/Plan abd hematoma observation Problems: SHUBHAM MIDDLETON APRN Feb 20, 2017 09:17
--- NOTE | 2017-02-20 09:43 | PDOC ---
PROGRESS NOTES Chief Complaint Chief Complaint AMS Sepsis ASSESSMENT AND PLAN: 1. Metabolic encephalopathy: 2/2 infection. resolved. 2. Sepsis: hypotension, hypothermia resolved. no bacteria isolated in blood, peritoneal fluid and urine. D/w Dr Burton Kinsey: stop Abx 3. ESRD: currently HD. had PD cath placed by RUBIA 1 week prior to presentation 4. Anemia: 2/2 ESRD, some component of acute bleed with hemoperitoneum post cath placement. EPO, transfuse with HD as needed 5. 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 on hydrea, allopurinol 6. Leukocytosis: multifactorial, mainly MPD trending towards AML, some reactive component. improving. as per Dr Us 7. Thrombocytosis: reactive plus MPD. trending down 8. Hepatitis: prob reactive with initial presentation. Hep screen neg. seems to be improving. recheck in AM 9. Coagulopathy: suspected 2/2 initial presentation. recheck in AM 10. DM2: poorly controlled. restart long-acting insulin, cont ISS 11. Nutrition: on PPN, TPN and Dobhoff feeds. stop IV nutrition. swallow eval RUBEN 12. SVT: restart home BB, monitor 13. HTN: poortly controlled. restart home norvasc, monitor 14. HLD: on statin and zetia at home. currently on hold Condition: stable Prognosis: poor Palliative care consult History of Present Illness History of Present Illness doing ok, no c/o. eating popsicles, drinking water Vitals Vitals Vital Signs Date Time Temp Pulse Resp B/P (MAP) Pulse Ox O2 Delivery O2 Flow Rate FiO2 02/20/17 08:54 Room Air 02/20/17 07:00 98.1 115 18 171/97 (121) 95 98.1 02/19/17 20:00 2.0 Physical Exam General: Alert, Oriented X3, Cooperative, No acute distress Heart: Other Lungs: Clear Abdomen: Normal bowel sounds, Soft, Other (bruise mid abd, close to PD cath) Extremities: No clubbing, No cyanosis Skin: No rashes, No significant lesion Labs LABS Laboratory Tests Test 02/20/17 05:55 02/20/17 08:01 White Blood Count 67.1 x10^3/uL (4.0-11.0) Red Blood Count 2.97 x10^6/uL (3.50-5.40) Hemoglobin 8.5 g/dL (12.0-15.5) Hematocrit 26.1 % (36.0-47.0) Mean Corpuscular Volume 88 fL (79-100) Mean Corpuscular Hemoglobin 29 pg (25-35) Mean Corpuscular Hemoglobin Concent 33 g/dL (31-37) Red Cell Distribution Width 17.6 % (11.5-14.5) Platelet Count 301 x10^3/uL (140-400) Neutrophils (%) (Auto) 97 % (31-73) Lymphocytes (%) (Auto) 1 % (24-48) Monocytes (%) (Auto) 1 % (0-9) Eosinophils (%) (Auto) 1 % (0-3) Basophils (%) (Auto) 0 % (0-3) Neutrophils # (Auto) 65.1 x10^3uL (1.8-7.7) Lymphocytes # (Auto) 0.7 x10^3/uL (1.0-4.8) Monocytes # (Auto) 0.7 x10^3/uL (0.0-1.1) Eosinophils # (Auto) 0.4 x10^3/uL (0.0-0.7) Basophils # (Auto) 0.2 x10^3/uL (0.0-0.2) Sodium Level 138 mmol/L (136-145) Potassium Level 4.2 mmol/L (3.5-5.1) Chloride Level 100 mmol/L (98-107) Carbon Dioxide Level 32 mmol/L (21-32) Anion Gap 6 (6-14) Blood Urea Nitrogen 28 mg/dL (7-20) Creatinine 3.0 mg/dL (0.6-1.0) Estimated GFR (Cockcroft-Gault) 18.7 Glucose Level 476 mg/dL (70-99) Calcium Level 9.1 mg/dL (8.5-10.1) Phosphorus Level 2.9 mg/dL (2.6-4.7) Magnesium Level 2.1 mg/dL (1.8-2.4) Glucose (Fingerstick) 446 mg/dL (70-99) Nutrition Consultation Dietary Evaluation: Recommendations by RD: Increase Calorie Intake Comments: PPN/TPN if PO intake on liquid diet unable to meet > 75% needs Expected Outcomes/Goals: Pt to tolerate TF at goal (Novasource Renal@35 ml/hr) Intake to meet > 75% est needs Interpretation of weight loss: >1-2% in 1 week Malnutrition Findings: Food and Nutrition Intake (Mod: <75% est energy req 7days Weight Status: Appropriate NEREYDA WOOD MD Feb 20, 2017 09:43
[2017-02-20] MEDS ORDERED: IV NORMAL SALINE 1000ML BAG 1,000 ML IV PRN ×2 (09:55)
[2017-02-20] MEDS ORDERED: DIALYSIS PATIENT. MC PRN ×2 (10:00)
--- NOTE | 2017-02-20 10:11 | PDOC ---
Infectious Disease Note Subjective Subjective Comfortable, denies pain Supplemental O2 ROS ROS GEN: Denies fevers, chills, sweats HEENT: Denies blurred vision, sore throat CV: Denies chest pain RESP: Denies shortness of air, cough GI: Denies n/v/d NEURO: Denies confusion, dizziness MSK: Denies weakness, joint pain/swelling Vital Sign Vital Signs Vital Signs Date Time Temp Pulse Resp B/P (MAP) Pulse Ox O2 Delivery O2 Flow Rate FiO2 02/20/17 08:54 Room Air 02/20/17 07:00 98.1 115 18 171/97 (121) 95 98.1 02/19/17 20:00 2.0 Physical Exam PHYSICAL EXAM GENERAL: NAD, Alert HEENT: PERRL, OC/OP NECK: Supple, no JVD, no LN LUNGS: Clear HEART: S1S2, no gallop, no murmur ABD: Soft, NT, no organomegaly, no rebound EXT: No edema, no cyanosis [employer]IL[employer]ER: Alert, oriented x 3, no focal neurologic deficit SKIN: No rash IV: ok Labs Lab Laboratory Tests Test 02/20/17 05:55 02/20/17 08:01 White Blood Count 67.1 x10^3/uL (4.0-11.0) Red Blood Count 2.97 x10^6/uL (3.50-5.40) Hemoglobin 8.5 g/dL (12.0-15.5) Hematocrit 26.1 % (36.0-47.0) Mean Corpuscular Volume 88 fL (79-100) Mean Corpuscular Hemoglobin 29 pg (25-35) Mean Corpuscular Hemoglobin Concent 33 g/dL (31-37) Red Cell Distribution Width 17.6 % (11.5-14.5) Platelet Count 301 x10^3/uL (140-400) Neutrophils (%) (Auto) 97 % (31-73) Lymphocytes (%) (Auto) 1 % (24-48) Monocytes (%) (Auto) 1 % (0-9) Eosinophils (%) (Auto) 1 % (0-3) Basophils (%) (Auto) 0 % (0-3) Neutrophils # (Auto) 65.1 x10^3uL (1.8-7.7) Lymphocytes # (Auto) 0.7 x10^3/uL (1.0-4.8) Monocytes # (Auto) 0.7 x10^3/uL (0.0-1.1) Eosinophils # (Auto) 0.4 x10^3/uL (0.0-0.7) Basophils # (Auto) 0.2 x10^3/uL (0.0-0.2) Sodium Level 138 mmol/L (136-145) Potassium Level 4.2 mmol/L (3.5-5.1) Chloride Level 100 mmol/L (98-107) Carbon Dioxide Level 32 mmol/L (21-32) Anion Gap 6 (6-14) Blood Urea Nitrogen 28 mg/dL (7-20) Creatinine 3.0 mg/dL (0.6-1.0) Estimated GFR (Cockcroft-Gault) 18.7 Glucose Level 476 mg/dL (70-99) Calcium Level 9.1 mg/dL (8.5-10.1) Phosphorus Level 2.9 mg/dL (2.6-4.7) Magnesium Level 2.1 mg/dL (1.8-2.4) Glucose (Fingerstick) 446 mg/dL (70-99) Micro all cultures are neg Objective Assessment Sepsis - POA (hypothermia/leukocytosis/lactic acidosis). cults neg Leukocytosis - in part reactive to bleed and transfusions/myelofibrosis. Better Elevated TSH - ? euthyroid. T4 ok Abd hematoma - Possibly infected - cult negative CKD - needing PD but not yet started (states PD cath placed 02/09). S/p HD cath and HD 02/15 Acute Encephalopathy -better DM Bilat airspace disease Polycythemia Vera - now myelofibrosis -Hydroxyurea restarted Plan Plan of Care d/c antibiotics Cultures NGTD monitor d/w JOSHUA Mulligan MD Feb 20, 2017 10:11
[2017-02-20] MEDS ORDERED: NON FORMULARY ITEM (Albuterol Sulfate (Proair Hfa Inhaler) 2 PUFF) INH PRN (10:30)
--- NOTE | 2017-02-20 11:00 | PDOC ---
Dialysis Progress Note Dialysis Note Dialysis Note Seen on Hemodialysis, tolerating treatment Okay so far Vitals on Hemodialysis: 166/89 109 (on monitor) afeb General Appearance: Awake: Alert Oriented x 3 Neck: No JVD or JVP Chest: CTA Anibal Heart: S1 S2 - not tachy to auscultation Abdomen - Soft NTND Extremities - No Edema ESRD : Dialysis as below F 180 NR 3.5 Hrs 3 K 2.5 Ca 140 Na 35 HC03 Qb 350 + Qd 500+ Heparin 0 Units Uf 2 Kgs or to dry weight as tolerated May give 25-50 gms of 25% Albumin if needed to maintain Hemodynamic stability Treatment plan reviewed and discussed with hem marker Vitals Vital Signs Vital Signs Date Time Temp Pulse Resp B/P (MAP) Pulse Ox O2 Delivery O2 Flow Rate FiO2 02/20/17 08:54 Room Air 02/20/17 07:00 98.1 115 18 171/97 (121) 95 98.1 02/19/17 20:00 2.0 Labs Last Labs Laboratory Tests Test 02/18/17 11:15 02/19/17 06:00 02/19/17 06:04 02/20/17 05:55 Lactic Acid Level 1.0 mmol/L (0.4-2.0) White Blood Count 72.0 x10^3/uL (4.0-11.0) 67.1 x10^3/uL (4.0-11.0) Red Blood Count 2.66 x10^6/uL (3.50-5.40) 2.97 x10^6/uL (3.50-5.40) Hemoglobin 7.6 g/dL (12.0-15.5) 8.5 g/dL (12.0-15.5) Hematocrit 23.0 % (36.0-47.0) 26.1 % (36.0-47.0) Mean Corpuscular Volume 87 fL (79-100) 88 fL (79-100) Mean Corpuscular Hemoglobin 29 pg (25-35) 29 pg (25-35) Mean Corpuscular Hemoglobin Concent 33 g/dL (31-37) 33 g/dL (31-37) Red Cell Distribution Width 16.7 % (11.5-14.5) 17.6 % (11.5-14.5) Platelet Count 313 x10^3/uL (140-400) 301 x10^3/uL (140-400) Neutrophils (%) (Auto) 97 % (31-73) 97 % (31-73) Lymphocytes (%) (Auto) 1 % (24-48) 1 % (24-48) Monocytes (%) (Auto) 1 % (0-9) 1 % (0-9) Eosinophils (%) (Auto) 0 % (0-3) 1 % (0-3) Basophils (%) (Auto) 1 % (0-3) 0 % (0-3) Neutrophils # (Auto) 70.0 x10^3uL (1.8-7.7) 65.1 x10^3uL (1.8-7.7) Lymphocytes # (Auto) 0.7 x10^3/uL (1.0-4.8) 0.7 x10^3/uL (1.0-4.8) Monocytes # (Auto) 0.7 x10^3/uL (0.0-1.1) 0.7 x10^3/uL (0.0-1.1) Eosinophils # (Auto) 0.2 x10^3/uL (0.0-0.7) 0.4 x10^3/uL (0.0-0.7) Basophils # (Auto) 0.4 x10^3/uL (0.0-0.2) 0.2 x10^3/uL (0.0-0.2) Segmented Neutrophils % 96 % (35-66) Band Neutrophils % 1 % (0-9) Lymphocytes % 1 % (24-48) Monocytes % 1 % (0-10) Eosinophils % 1 % (0-5) Platelet Estimate Adequate (ADEQUATE) Large Platelets Present Anisocytosis Present Sodium Level 140 mmol/L (136-145) 138 mmol/L (136-145) Potassium Level 3.6 mmol/L (3.5-5.1) 4.2 mmol/L (3.5-5.1) Chloride Level 100 mmol/L (98-107) 100 mmol/L (98-107) Carbon Dioxide Level 27 mmol/L (21-32) 32 mmol/L (21-32) Anion Gap 13 (6-14) 6 (6-14) Blood Urea Nitrogen 19 mg/dL (7-20) 28 mg/dL (7-20) Creatinine 2.3 mg/dL (0.6-1.0) 3.0 mg/dL (0.6-1.0) Estimated GFR (Cockcroft-Gault) 25.4 18.7 Glucose Level 253 mg/dL (70-99) 476 mg/dL (70-99) Calcium Level 8.2 mg/dL (8.5-10.1) 9.1 mg/dL (8.5-10.1) Phosphorus Level 2.3 mg/dL (2.6-4.7) 2.9 mg/dL (2.6-4.7) Magnesium Level 1.9 mg/dL (1.8-2.4) 2.1 mg/dL (1.8-2.4) Triglycerides Level 109 mg/dL (0-150) Glucose (Fingerstick) 257 mg/dL (70-99) Test 02/20/17 08:01 Glucose (Fingerstick) 446 mg/dL (70-99) Laboratory Tests Test 02/20/17 05:55 02/20/17 08:01 White Blood Count 67.1 x10^3/uL (4.0-11.0) Red Blood Count 2.97 x10^6/uL (3.50-5.40) Hemoglobin 8.5 g/dL (12.0-15.5) Hematocrit 26.1 % (36.0-47.0) Mean Corpuscular Volume 88 fL (79-100) Mean Corpuscular Hemoglobin 29 pg (25-35) Mean Corpuscular Hemoglobin Concent 33 g/dL (31-37) Red Cell Distribution Width 17.6 % (11.5-14.5) Platelet Count 301 x10^3/uL (140-400) Neutrophils (%) (Auto) 97 % (31-73) Lymphocytes (%) (Auto) 1 % (24-48) Monocytes (%) (Auto) 1 % (0-9) Eosinophils (%) (Auto) 1 % (0-3) Basophils (%) (Auto) 0 % (0-3) Neutrophils # (Auto) 65.1 x10^3uL (1.8-7.7) Lymphocytes # (Auto) 0.7 x10^3/uL (1.0-4.8) Monocytes # (Auto) 0.7 x10^3/uL (0.0-1.1) Eosinophils # (Auto) 0.4 x10^3/uL (0.0-0.7) Basophils # (Auto) 0.2 x10^3/uL (0.0-0.2) Sodium Level 138 mmol/L (136-145) Potassium Level 4.2 mmol/L (3.5-5.1) Chloride Level 100 mmol/L (98-107) Carbon Dioxide Level 32 mmol/L (21-32) Anion Gap 6 (6-14) Blood Urea Nitrogen 28 mg/dL (7-20) Creatinine 3.0 mg/dL (0.6-1.0) Estimated GFR (Cockcroft-Gault) 18.7 Glucose Level 476 mg/dL (70-99) Calcium Level 9.1 mg/dL (8.5-10.1) Phosphorus Level 2.9 mg/dL (2.6-4.7) Magnesium Level 2.1 mg/dL (1.8-2.4) Glucose (Fingerstick) 446 mg/dL (70-99) Assessment Assessment Problems Medical Problems: (1) Anemia Status: Acute (2) Coagulopathy Status: Acute (3) Congestive heart failure Status: Acute (4) End stage renal disease Status: Acute (5) Hypoglycemia Status: Acute (6) Hypotension Status: Acute (7) Myelodysplastic syndrome Status: Acute Problems: Plan Plan of Care Problems Medical Problems: (1) Anemia Status: Acute (2) Coagulopathy Status: Acute (3) Congestive heart failure Status: Acute (4) End stage renal disease Status: Acute (5) Hypoglycemia Status: Acute (6) Hypotension Status: Acute (7) Myelodysplastic syndrome Status: Acute MARJAN GRANT MD Feb 20, 2017 11:00
[2017-02-20] MEDS ORDERED: ALBUTEROL SULFATE 2.5 MG/3 ML NEBU. NEB PRN (11:15)
[2017-02-20] MEDS: SEVELAMER CARBONATE 800 MG TABLET. PO SCH ×2 (12:25→16:02)
[2017-02-20] MEDS: ALLOPURINOL 300 MG TABLET. PO SCH (12:25)
[2017-02-20] MEDS: SODIUM BICARBONATE 650 MG TABLET. PO SCH ×2 (12:26→21:19)
[2017-02-20] MEDS: PANTOPRAZOLE 40 MG TABLET.DR. PO SCH (12:26)
[2017-02-20 12:30] VITALS: BP 152/81
[2017-02-20] MEDS: PARICALCITOL 1 MCG CAPSULE PO SCH (12:38)
[2017-02-20] MEDS: ASPIRIN ENTERIC COATED 81 MG TABLET.DR. PO SCH (12:38)
[2017-02-20] MEDS: amLODIPine BESYLATE 10 MG TABLET PO SCH (12:40)
[2017-02-20] MEDS: CARVEDILOL 12.5 MG TABLET. PO SCH ×2 (12:40→16:03)
[2017-02-20] MEDS: ALBUTEROL SULFATE 2.5 MG/3 ML NEBU. NEB SCH ×3 (13:22→23:47)
--- NOTE | 2017-02-20 14:09 | PDOC ---
PULMONARY PROGRESS NOTES Subjective off 02, no sob better, no cough, no pain Vitals Vital Signs Date Time Temp Pulse Resp B/P (MAP) Pulse Ox O2 Delivery O2 Flow Rate FiO2 02/20/17 13:27 97 Room Air 02/20/17 12:40 101 152/81 02/20/17 12:30 97.5 18 97.5 02/19/17 20:00 2.0 ROS: No Nausea, No Chest Pain, No Abdominal Pain, No Increase Cough General: Alert HEENT: Other (nc at perrl nose throat clear) Lungs: Clear Cardiovascular: S1, S2 Abdomen: Soft, Other (tender) Neuro Exam: Alert, Oriented Extremities: No Edema Skin: Warm Labs Laboratory Tests Test 02/19/17 06:00 02/19/17 06:04 02/20/17 05:55 02/20/17 08:01 White Blood Count 72.0 x10^3/uL (4.0-11.0) 67.1 x10^3/uL (4.0-11.0) Red Blood Count 2.66 x10^6/uL (3.50-5.40) 2.97 x10^6/uL (3.50-5.40) Hemoglobin 7.6 g/dL (12.0-15.5) 8.5 g/dL (12.0-15.5) Hematocrit 23.0 % (36.0-47.0) 26.1 % (36.0-47.0) Mean Corpuscular Volume 87 fL (79-100) 88 fL (79-100) Mean Corpuscular Hemoglobin 29 pg (25-35) 29 pg (25-35) Mean Corpuscular Hemoglobin Concent 33 g/dL (31-37) 33 g/dL (31-37) Red Cell Distribution Width 16.7 % (11.5-14.5) 17.6 % (11.5-14.5) Platelet Count 313 x10^3/uL (140-400) 301 x10^3/uL (140-400) Neutrophils (%) (Auto) 97 % (31-73) 97 % (31-73) Lymphocytes (%) (Auto) 1 % (24-48) 1 % (24-48) Monocytes (%) (Auto) 1 % (0-9) 1 % (0-9) Eosinophils (%) (Auto) 0 % (0-3) 1 % (0-3) Basophils (%) (Auto) 1 % (0-3) 0 % (0-3) Neutrophils # (Auto) 70.0 x10^3uL (1.8-7.7) 65.1 x10^3uL (1.8-7.7) Lymphocytes # (Auto) 0.7 x10^3/uL (1.0-4.8) 0.7 x10^3/uL (1.0-4.8) Monocytes # (Auto) 0.7 x10^3/uL (0.0-1.1) 0.7 x10^3/uL (0.0-1.1) Eosinophils # (Auto) 0.2 x10^3/uL (0.0-0.7) 0.4 x10^3/uL (0.0-0.7) Basophils # (Auto) 0.4 x10^3/uL (0.0-0.2) 0.2 x10^3/uL (0.0-0.2) Segmented Neutrophils % 96 % (35-66) Band Neutrophils % 1 % (0-9) Lymphocytes % 1 % (24-48) Monocytes % 1 % (0-10) Eosinophils % 1 % (0-5) Platelet Estimate Adequate (ADEQUATE) Large Platelets Present Anisocytosis Present Sodium Level 140 mmol/L (136-145) 138 mmol/L (136-145) Potassium Level 3.6 mmol/L (3.5-5.1) 4.2 mmol/L (3.5-5.1) Chloride Level 100 mmol/L (98-107) 100 mmol/L (98-107) Carbon Dioxide Level 27 mmol/L (21-32) 32 mmol/L (21-32) Anion Gap 13 (6-14) 6 (6-14) Blood Urea Nitrogen 19 mg/dL (7-20) 28 mg/dL (7-20) Creatinine 2.3 mg/dL (0.6-1.0) 3.0 mg/dL (0.6-1.0) Estimated GFR (Cockcroft-Gault) 25.4 18.7 Glucose Level 253 mg/dL (70-99) 476 mg/dL (70-99) Calcium Level 8.2 mg/dL (8.5-10.1) 9.1 mg/dL (8.5-10.1) Phosphorus Level 2.3 mg/dL (2.6-4.7) 2.9 mg/dL (2.6-4.7) Magnesium Level 1.9 mg/dL (1.8-2.4) 2.1 mg/dL (1.8-2.4) Triglycerides Level 109 mg/dL (0-150) Glucose (Fingerstick) 257 mg/dL (70-99) 446 mg/dL (70-99) Laboratory Tests Test 02/20/17 05:55 02/20/17 08:01 White Blood Count 67.1 x10^3/uL (4.0-11.0) Red Blood Count 2.97 x10^6/uL (3.50-5.40) Hemoglobin 8.5 g/dL (12.0-15.5) Hematocrit 26.1 % (36.0-47.0) Mean Corpuscular Volume 88 fL (79-100) Mean Corpuscular Hemoglobin 29 pg (25-35) Mean Corpuscular Hemoglobin Concent 33 g/dL (31-37) Red Cell Distribution Width 17.6 % (11.5-14.5) Platelet Count 301 x10^3/uL (140-400) Neutrophils (%) (Auto) 97 % (31-73) Lymphocytes (%) (Auto) 1 % (24-48) Monocytes (%) (Auto) 1 % (0-9) Eosinophils (%) (Auto) 1 % (0-3) Basophils (%) (Auto) 0 % (0-3) Neutrophils # (Auto) 65.1 x10^3uL (1.8-7.7) Lymphocytes # (Auto) 0.7 x10^3/uL (1.0-4.8) Monocytes # (Auto) 0.7 x10^3/uL (0.0-1.1) Eosinophils # (Auto) 0.4 x10^3/uL (0.0-0.7) Basophils # (Auto) 0.2 x10^3/uL (0.0-0.2) Sodium Level 138 mmol/L (136-145) Potassium Level 4.2 mmol/L (3.5-5.1) Chloride Level 100 mmol/L (98-107) Carbon Dioxide Level 32 mmol/L (21-32) Anion Gap 6 (6-14) Blood Urea Nitrogen 28 mg/dL (7-20) Creatinine 3.0 mg/dL (0.6-1.0) Estimated GFR (Cockcroft-Gault) 18.7 Glucose Level 476 mg/dL (70-99) Calcium Level 9.1 mg/dL (8.5-10.1) Phosphorus Level 2.9 mg/dL (2.6-4.7) Magnesium Level 2.1 mg/dL (1.8-2.4) Glucose (Fingerstick) 446 mg/dL (70-99) Medications Active Scripts Medications Dose Route/Sig Max Daily Dose Days Date Category Lantus Solostar (Insulin Glargine,Hum.rec.anlog) 100 Unit/1 Ml Insuln.pen 22 Unit SQ QHS 02/15/17 Reported Droxia (Hydroxyurea) 200 Mg Capsule 200 Mg PO DAILY 02/15/17 Reported Feosol (Ferrous Sulfate) 325 Mg Tablet 325 Mg PO DAILY 02/15/17 Reported Coreg (Carvedilol) 12.5 Mg Tablet 1 Tab PO BID 02/15/17 Reported Bumetanide 2 Mg Tablet 2 Tab PO BID 02/15/17 Reported Aspir 81 (Aspirin) 81 Mg Tablet.dr 1 Tab PO DAILY 02/15/17 Reported Allopurinol 300 Mg Tablet 1 Tab PO DAILY 02/15/17 Reported Advair 250-50 Diskus (Fluticasone/Salmeterol) 1 Each Disk.w.dev 1 Puff IH Q12HR 02/15/17 Reported Zetia (Ezetimibe) 10 Mg Tablet 0.5 Tab PO DAILY 02/15/17 Reported Zemplar (Paricalcitol) 1 Mcg Capsule 1 Cap PO DAILY 02/15/17 Reported Sodium Bicarbonate 650 Mg Tablet 850 Mg PO BID 02/15/17 Reported Sensipar (Cinacalcet Hcl) 30 Mg Tablet 30 Mg PO QODAY 02/15/17 Reported Renvela (Sevelamer Carbonate) 800 Mg Tablet 2 Tab PO TID 02/15/17 Reported Proair Hfa Inhaler (Albuterol Sulfate) 8.5 Gm Hfa.aer.ad 2 Puff INH PRN Q4HRS PRN 02/15/17 Reported Omeprazole 40 Mg Capsule.dr 1 Cap PO DAILY 02/15/17 Reported Percocet 5-325 Mg Tablet (Oxycodone/Acetaminophen) 1 Each Tablet 1-2 Tab PO PRN Q6HRS PRN 02/15/17 Reported Novolog Flexpen (Insulin Aspart) 100 Unit/1 Ml Insuln.pen 15 Unit SQ DAILY 02/15/17 Reported Novolog Flexpen (Insulin Aspart) 100 Unit/1 Ml Insuln.pen 12 Unit SQ BIDACBL 02/15/17 Reported Norvasc (Amlodipine Besylate) 10 Mg Tablet 10 Mg PO DAILY 02/15/17 Reported Miralax (Polyethylene Glycol 3350) 17 Gm Powd.pack 1 Packet PO DAILY 02/15/17 Reported Lipitor (Atorvastatin Calcium) 40 Mg Tablet 1 Tab PO DAILY 02/15/17 Reported Lidocaine 1 Each Adh..patch 1 Each TP DAILY 02/15/17 Reported Impression . 1. Abnormal CT of the abdomen revealing some basilar opacities, suspect mostly atelectasis. Intraabdominal hematoma.?infected/?splenic abscess,? hepatic abscess 2. Asthma. 3. Sepsis present upon admission.resolved 5. Leukocytosis. 6. Lactic acidosis. 7. Chronic kidney disease, status post recent catheter for dialysis. 8. Acute toxic metabolic encephalopathy. 9. Diabetes. 10. Polycythemia. Plan . 02 titration PRN NEBS TPN 1. RESP STATUS COMPENSATED 2. Antibiotics per ID. 3. Follow Nephrology input. 4. Follow hem input 5. Intraabdominal hematoma. ODILIA BROWN MD Feb 20, 2017 14:09
--- NOTE | 2017-02-20 14:31 | PDOC ---
PROGRESS NOTES Subjective Subjective c/c - f/u of Secondary myelofibrosis Objective Objective Vital Signs Date Time Temp Pulse Resp B/P (MAP) Pulse Ox O2 Delivery O2 Flow Rate FiO2 02/20/17 13:27 97 Room Air 02/20/17 12:40 101 152/81 02/20/17 12:30 97.5 18 97.5 02/19/17 20:00 2.0 Intake and Output 02/21/17 07:00 # Voids 1 Physical Exam Heart: Normal S1, Normal S2 General: Alert, Oriented X3 Lungs: Clear to auscultation Neuro: Normal speech Psych/Mental Status: Mental status NL Assessment Assessment Problems Medical Problems: (1) Anemia Status: Acute (2) Coagulopathy Status: Acute (3) Congestive heart failure Status: Acute (4) End stage renal disease Status: Acute (5) Hypoglycemia Status: Acute (6) Hypotension Status: Acute (7) Myelodysplastic syndrome Status: Acute IMPRESSION AND PLAN: 1. 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 She was off hydroxyurea for almost 2-3 weeks prior to this admission because of renal failure. Her blood counts are significantly worse with worsening WBC and worsening platelets. Hence, I resumed hydroxyurea 02/15/17. Elevated platelet counts in patients with essential thrombocythemia can also increase the risk of bleeding. Hence, it is essential to decrease the platelet counts with the help of hydroxyurea. I will continue to monitor WBC, hemoglobin, and platelet counts closely while she is on hydroxyurea. 2. Hematoma, intraabdominal, due to recent peritoneal dialysis catheter placement. Her INR is elevated at 1.8. She already received 3 units of FFP and s/p 1 dose of vitamin K 02/15/17. Her creatinine is 6.6 with BUN of 65. Patients with uncontrolled myeloproliferative disorder and the patients with uremia can have deficiency of von Willebrand factor. s/p 20 mcg of DDAVP 02/15/17 for management of the underlying hematoma. 3. Sepsis. Appreciate ID consultation. 4. Leukocytosis due to myelofibrosis. Worse at 107 on 02/17/17. Continue hydrea. Plan peripheral smear review by pathology. Improved to 67.1 5. Thrombocytosis due to myelofibrosis. Plan hydroxyurea as described above. Plt improved to 301. 6. Anemia - s/p transfusion, Hb 8.5. 7. Coagulopathy - s/p FFP/Vit K/DDAVP Comment Review of Relevant I have reviewed the following items laure (where applicable) has been applied. Labs Laboratory Tests Test 02/19/17 06:00 02/19/17 06:04 02/20/17 05:55 02/20/17 08:01 White Blood Count 72.0 x10^3/uL (4.0-11.0) 67.1 x10^3/uL (4.0-11.0) Red Blood Count 2.66 x10^6/uL (3.50-5.40) 2.97 x10^6/uL (3.50-5.40) Hemoglobin 7.6 g/dL (12.0-15.5) 8.5 g/dL (12.0-15.5) Hematocrit 23.0 % (36.0-47.0) 26.1 % (36.0-47.0) Mean Corpuscular Volume 87 fL (79-100) 88 fL (79-100) Mean Corpuscular Hemoglobin 29 pg (25-35) 29 pg (25-35) Mean Corpuscular Hemoglobin Concent 33 g/dL (31-37) 33 g/dL (31-37) Red Cell Distribution Width 16.7 % (11.5-14.5) 17.6 % (11.5-14.5) Platelet Count 313 x10^3/uL (140-400) 301 x10^3/uL (140-400) Neutrophils (%) (Auto) 97 % (31-73) 97 % (31-73) Lymphocytes (%) (Auto) 1 % (24-48) 1 % (24-48) Monocytes (%) (Auto) 1 % (0-9) 1 % (0-9) Eosinophils (%) (Auto) 0 % (0-3) 1 % (0-3) Basophils (%) (Auto) 1 % (0-3) 0 % (0-3) Neutrophils # (Auto) 70.0 x10^3uL (1.8-7.7) 65.1 x10^3uL (1.8-7.7) Lymphocytes # (Auto) 0.7 x10^3/uL (1.0-4.8) 0.7 x10^3/uL (1.0-4.8) Monocytes # (Auto) 0.7 x10^3/uL (0.0-1.1) 0.7 x10^3/uL (0.0-1.1) Eosinophils # (Auto) 0.2 x10^3/uL (0.0-0.7) 0.4 x10^3/uL (0.0-0.7) Basophils # (Auto) 0.4 x10^3/uL (0.0-0.2) 0.2 x10^3/uL (0.0-0.2) Segmented Neutrophils % 96 % (35-66) Band Neutrophils % 1 % (0-9) Lymphocytes % 1 % (24-48) Monocytes % 1 % (0-10) Eosinophils % 1 % (0-5) Platelet Estimate Adequate (ADEQUATE) Large Platelets Present Anisocytosis Present Sodium Level 140 mmol/L (136-145) 138 mmol/L (136-145) Potassium Level 3.6 mmol/L (3.5-5.1) 4.2 mmol/L (3.5-5.1) Chloride Level 100 mmol/L (98-107) 100 mmol/L (98-107) Carbon Dioxide Level 27 mmol/L (21-32) 32 mmol/L (21-32) Anion Gap 13 (6-14) 6 (6-14) Blood Urea Nitrogen 19 mg/dL (7-20) 28 mg/dL (7-20) Creatinine 2.3 mg/dL (0.6-1.0) 3.0 mg/dL (0.6-1.0) Estimated GFR (Cockcroft-Gault) 25.4 18.7 Glucose Level 253 mg/dL (70-99) 476 mg/dL (70-99) Calcium Level 8.2 mg/dL (8.5-10.1) 9.1 mg/dL (8.5-10.1) Phosphorus Level 2.3 mg/dL (2.6-4.7) 2.9 mg/dL (2.6-4.7) Magnesium Level 1.9 mg/dL (1.8-2.4) 2.1 mg/dL (1.8-2.4) Triglycerides Level 109 mg/dL (0-150) Glucose (Fingerstick) 257 mg/dL (70-99) 446 mg/dL (70-99) Test 02/20/17 14:15 Glucose (Fingerstick) 301 mg/dL (70-99) Laboratory Tests Test 02/20/17 05:55 02/20/17 08:01 02/20/17 14:15 White Blood Count 67.1 x10^3/uL (4.0-11.0) Red Blood Count 2.97 x10^6/uL (3.50-5.40) Hemoglobin 8.5 g/dL (12.0-15.5) Hematocrit 26.1 % (36.0-47.0) Mean Corpuscular Volume 88 fL (79-100) Mean Corpuscular Hemoglobin 29 pg (25-35) Mean Corpuscular Hemoglobin Concent 33 g/dL (31-37) Red Cell Distribution Width 17.6 % (11.5-14.5) Platelet Count 301 x10^3/uL (140-400) Neutrophils (%) (Auto) 97 % (31-73) Lymphocytes (%) (Auto) 1 % (24-48) Monocytes (%) (Auto) 1 % (0-9) Eosinophils (%) (Auto) 1 % (0-3) Basophils (%) (Auto) 0 % (0-3) Neutrophils # (Auto) 65.1 x10^3uL (1.8-7.7) Lymphocytes # (Auto) 0.7 x10^3/uL (1.0-4.8) Monocytes # (Auto) 0.7 x10^3/uL (0.0-1.1) Eosinophils # (Auto) 0.4 x10^3/uL (0.0-0.7) Basophils # (Auto) 0.2 x10^3/uL (0.0-0.2) Sodium Level 138 mmol/L (136-145) Potassium Level 4.2 mmol/L (3.5-5.1) Chloride Level 100 mmol/L (98-107) Carbon Dioxide Level 32 mmol/L (21-32) Anion Gap 6 (6-14) Blood Urea Nitrogen 28 mg/dL (7-20) Creatinine 3.0 mg/dL (0.6-1.0) Estimated GFR (Cockcroft-Gault) 18.7 Glucose Level 476 mg/dL (70-99) Calcium Level 9.1 mg/dL (8.5-10.1) Phosphorus Level 2.9 mg/dL (2.6-4.7) Magnesium Level 2.1 mg/dL (1.8-2.4) Glucose (Fingerstick) 446 mg/dL (70-99) 301 mg/dL (70-99) Microbiology 02/14/17 Blood Culture - Final, Complete NO GROWTH AFTER 5 DAYS 02/14/17 Gram Stain - Final, Complete 02/14/17 Urine Culture - Final, Complete 02/14/17 Urine Culture Result 1 (DENNY) - Final, Complete Medications Current Medications Dextrose (Dextrose 50%-Water Syringe) 25 gm STK-MED ONCE IV ; Start 02/14/17 at 21:20; Stop 02/14/17 at 21:21; Status DC Sodium Chloride 2,040 ml @ 510 mls/hr Q4H IV Last administered on 02/14/17 21 :33; Start 02/14/17 at 21:33; Stop 02/14/17 at 22:05; Status DC Vancomycin HCl (Vanco Per Pharmacy) 1 each PRN DAILY PRN MC SEE COMMENTS Last administered on 02/17/17 07:34; Start 02/14/17 at 22:00; Stop 02/17/17 at 08:16 ; Status DC Levofloxacin/ Dextrose (Levaquin Per Pharmacy) 1 each PRN DAILY PRN MC SEE COMMENTS; Start 02/14/17 at 23:00; Stop 02/15/17 at 07:38; Status DC Vancomycin HCl 1.75 gm/Sodium Chloride 500 ml @ 250 mls/hr 1X ONCE IV Last administered on 02/14/17 22:21; Start 02/14/17 at 22:15; Stop 02/15/17 at 00:14 ; Status DC Sodium Chloride 1,000 ml @ 510 mls/hr Q1H58M IV ; Start 02/14/17 at 22:15; Stop 02/15/17 at 01:32; Status DC Levofloxacin/ Dextrose 100 ml @ 100 mls/hr Q48H IV Last administered on 22:58; Start 02/14/17 at 23:00; Stop 02/15/17 at 07:38; Status DC Dextrose (Dextrose 50%-Water Syringe) 25 gm 1X ONCE IV Last administered on 22:52; Start 02/14/17 at 23:00; Stop 02/14/17 at 23:01; Status DC Dextrose (Dextrose 50%-Water Syringe) 25 gm 1X ONCE IV ; Start 02/14/17 at 23: 00; Stop 02/14/17 at 23:01; Status DC Furosemide (Lasix) 40 mg 1X PRN PRN IV blood transfusion; Start 02/14/17 at 23: 00; Stop 02/15/17 at 22:59; Status DC Dopamine HCl/ Dextrose 250 ml @ 12.688 mls/ hr CONT PRN IV SEE I/O RECORD Last administered on 02/14/17 23:44; Start 02/14/17 at 23:15; Stop 02/20/17 at 10:19; Status DC Ondansetron HCl (Zofran) 4 mg PRN Q6HRS PRN IV NAUSEA/VOMITING Last administered on 02/17/17 12:29; Start 02/14/17 at 23:15 Famotidine (Pepcid) 10 mg BID IVP Last administered on 02/19/17 20:21; Start 02/15/17 at 09:00; Stop 02/20/17 at 12:02; Status DC Acetaminophen (Tylenol) 120 mg PRN Q6HRS PRN CO MILD PAIN / TEMP; Start at 23:15 Acetaminophen (Tylenol) 500 mg PRN Q6HRS PRN PO MILD PAIN / TEMP Last administered on 02/20/17 13:13; Start 02/14/17 at 23:15 Vancomycin HCl 1 each 1X ONCE MC ; Start 02/16/17 at 22:30; Stop 02/16/17 at 22 :30; Status DC Ondansetron HCl (Zofran) 4 mg PRN Q8HRS PRN IV NAUSEA/VOMITING; Start 02/14/17 at 23:45; Stop 02/15/17 at 23:44; Status DC Dextrose/Sodium Chloride 1,000 ml @ 125 mls/hr 1X ONCE IV ; Start 02/14/17 at 23:45; Stop 02/15/17 at 07:44; Status DC Piperacillin Sod/ Tazobactam Sod 2.25 gm/Sodium Chloride 50 ml @ 100 mls/hr Q6HRS IV Last administered on 02/20/17 05:51; Start 02/15/17 at 07:30; Stop at 10:03; Status DC Micafungin Sodium 100 mg/Dextrose 100 ml @ 100 mls/hr Q24H IV Last administered on 02/19/17 09:25; Start 02/15/17 at 08:00; Stop 02/20/17 at 10:03 ; Status DC Fentanyl Citrate (Fentanyl 2ml Vial) 50 mcg PRN Q2HR PRN IV PAIN Last administered on 02/18/17 20:52; Start 02/15/17 at 09:15; Stop 02/20/17 at 10:19 ; Status DC Morphine Sulfate 4 mg PRN Q2HR PRN IV PAIN Last administered on 02/20/17 06:05 ; Start 02/15/17 at 09:45; Stop 02/20/17 at 10:19; Status DC Sodium Chloride 1,000 ml @ 75 mls/hr [id number] IV Last administered on 17:42; Start 02/15/17 at 10:00; Stop 02/16/17 at 17:54; Status DC Phytonadione (Vitamin K Ampule) 10 mg 1X ONCE SQ Last administered on 11:35; Start 02/15/17 at 10:30; Stop 02/15/17 at 10:33; Status DC Desmopressin Acetate 20 mcg/ Sodium Chloride 55 ml @ 102 mls/hr 1X ONCE IV Last administered on 02/15/17 11:35; Start 02/15/17 at 11:00; Stop 02/15/17 at 11:32; Status DC Hydroxyurea (Hydrea) 500 mg QMWF PO Last administered on 02/17/17 18:26; Start 02/15/17 at 11:00 Lidocaine/Sodium Bicarbonate (Buffered Lidocaine 1%) 20 ml STK-MED ONCE IJ ; Start 02/15/17 at 11:23; Stop 02/15/17 at 11:24; Status DC Heparin Sodium/ Sodium Chloride 500 ml @ As Directed STK-MED ONCE .ROUTE ; Start 02/15/17 at 11:23; Stop 02/15/17 at 11:24; Status DC Heparin Sodium (Porcine) (Heparin Sodium) 10,000 unit STK-MED ONCE .ROUTE ; Start 02/15/17 at 11:49; Stop 02/15/17 at 11:50; Status DC Lidocaine/Sodium Bicarbonate (Buffered Lidocaine 1%) 3 ml 1X ONCE IJ Last administered on 02/15/17 12:14; Start 02/15/17 at 12:00; Stop 02/15/17 at 12:14 ; Status DC Heparin Sodium/ Sodium Chloride 60 unit 1X ONCE IV Last administered on 12:17; Start 02/15/17 at 12:00; Stop 02/15/17 at 12:14; Status DC Heparin Sodium (Porcine) (Heparin Sodium) 2,500 unit 1X ONCE INT CAT Last administered on 02/15/17 12:17; Start 02/15/17 at 12:00; Stop 02/15/17 at 12:14 ; Status DC Vancomycin HCl 1 each 1X ONCE MC Last administered on 02/16/17 05:00; Start 02/16/17 at 05:00; Stop 02/16/17 at 05:01; Status DC Sodium Chloride 1,000 ml @ 1,000 mls/hr Q1H PRN IV hypotension; Start 02/15/17 at 13:56; Stop 02/15/17 at 19:55; Status DC Sodium Chloride 1,000 ml @ 400 mls/hr Q2H30M PRN IV PATENCY; Start 02/15/17 at 13:56; Stop 02/16/17 at 01:55; Status DC Info (PHARMACY MONITORING -- do not chart) 1 each PRN DAILY PRN MC SEE COMMENTS ; Start 02/15/17 at 14:00; Status UNV Info (PHARMACY MONITORING -- do not chart) 1 each PRN DAILY PRN MC SEE COMMENTS ; Start 02/15/17 at 14:00; Stop 02/17/17 at 11:20; Status DC Albuterol Sulfate (Ventolin Neb Soln) 2.5 mg PRN Q4HRS PRN NEB SHORTNESS OF BREATH; Start 02/15/17 at 15:30; Stop 02/20/17 at 11:14; Status DC Vancomycin HCl 500 mg/Sodium Chloride 100 ml @ 100 mls/hr 1X ONCE IV Last administered on 02/16/17t 17:41; Start 02/16/17 at 16:00; Stop 02/16/17 at 16:59 ; Status DC Sodium Chloride 1,000 ml @ 1,000 mls/hr Q1H PRN IV hypotension; Start 02/16/17 at 13:41; Stop 02/16/17 at 19:40; Status DC Sodium Chloride 1,000 ml @ 400 mls/hr Q2H30M PRN IV PATENCY; Start 02/16/17 at 13:41; Stop 02/17/17 at 01:40; Status DC Info (PHARMACY MONITORING -- do not chart) 1 each PRN DAILY PRN MC SEE COMMENTS ; Start 02/16/17 at 13:45; Stop 02/17/17 at 11:20; Status DC Vancomycin HCl 500 mg/Sodium Chloride 100 ml @ 100 mls/hr 1X ONCE IV ; Start 02/17/17 at 15:00; Stop 02/17/17 at 15:00; Status DC Sodium Chloride 1,000 ml @ 1,000 mls/hr Q1H PRN IV hypotension; Start 02/17/17 at 09:24; Stop 02/17/17 at 15:23; Status DC Sodium Chloride (Normal Saline Flush) 10 ml 1X PRN PRN IV AP catheter pack; Start 02/17/17 at 09:30; Stop 02/18/17 at 09:29; Status DC Sodium Chloride (Normal Saline Flush) 10 ml 1X PRN PRN IV DIRECTOR OF DONOR RELATIONS catheter pack; Start 02/17/17 at 09:30; Stop 02/18/17 at 09:29; Status DC Sodium Chloride 1,000 ml @ 400 mls/hr Q2H30M PRN IV PATENCY; Start 02/17/17 at 09:24; Stop 02/17/17 at 21:23; Status DC Info (PHARMACY MONITORING -- do not chart) 1 each PRN DAILY PRN MC SEE COMMENTS ; Start 02/17/17 at 09:30; Stop 02/20/17 at 10:29; Status DC Albumin Human 100 ml @ 100 mls/hr 1X STAT IV Last administered on 02/17/17t 09:49; Start 02/17/17 at 09:35; Stop 02/17/17 at 10:34; Status DC Albumin Human 100 ml @ 100 mls/hr 1X ONCE IV Last administered on 02/17/17 10:46; Start 02/17/17 at 10:45; Stop 02/17/17 at 11:44; Status DC Iohexol (Omnipaque 300 Mg/ml) 75 ml 1X ONCE IV ; Start 02/17/17 at 11:15; Stop 02/17/17 at 11:21; Status DC Info 1 each PRN DAILY PRN MC SEE COMMENTS Last administered on 02/19/17 11:38 ; Start 02/17/17 at 18:00; Stop 02/20/17 at 10:24; Status DC Sodium Chloride 90 meq/Potassium Chloride 50 meq/ Potassium Phosphate 13.6 mmol/ Magnesium Sulfate 10 meq/ Calcium Gluconate 10 meq/ Multivitamins 10 ml/Chromium / Copper/Manganese/ Seleni/Zn 1 ml/ Total Parenteral Nutrition/Amino Acids/ Dextrose/ Fat Emulsion Intravenous 1,512 ml @ 63 mls/hr TPN CONT IV Last administered on 02/18/17 22:02; Start 02/18/17 at 22:00; Stop 02/19/17 at 21:59 ; Status DC Iohexol (Omnipaque 300 Mg/ml) 75 ml 1X ONCE IV Last administered on 02/18/17 09:38; Start 02/18/17 at 09:30; Stop 02/18/17 at 09:31; Status DC Sodium Chloride 1,000 ml @ 1,000 mls/hr Q1H PRN IV hypotension; Start 02/18/17 at 10:09; Stop 02/18/17 at 16:08; Status DC Albumin Human 200 ml @ 200 mls/hr 1X PRN PRN IV Hypotension; Start 02/18/17 at 10:15; Stop 02/18/17 at 16:14; Status DC Sodium Chloride 1,000 ml @ 400 mls/hr Q2H30M PRN IV PATENCY; Start 02/18/17 at 10:09; Stop 02/18/17 at 22:08; Status DC Info (PHARMACY MONITORING -- do not chart) 1 each PRN DAILY PRN MC SEE COMMENTS ; Start 02/18/17 at 10:15; Status UNV Info (PHARMACY MONITORING -- do not chart) 1 each PRN DAILY PRN MC SEE COMMENTS ; Start 02/18/17 at 10:15; Status UNV Potassium Phosphate 13.6 mmol/Sodium Chloride 104.5333 ml @ 52.267 m... 1X ONCE IV Last administered on 02/19/17 09:25; Start 02/19/17 at 09:00; Stop at 10:59; Status DC Sodium Chloride 90 meq/Potassium Chloride 50 meq/ Potassium Phosphate 13.6 mmol/ Magnesium Sulfate 10 meq/ Calcium Gluconate 10 meq/ Multivitamins 10 ml/Chromium / Copper/Manganese/ Seleni/Zn 1 ml/ Total Parenteral Nutrition/Amino Acids/ Dextrose/ Fat Emulsion Intravenous 1,512 ml @ 63 mls/hr TPN CONT IV Last administered on 02/19/17 22:10; Start 02/19/17 at 22:00; Stop 02/20/17 at 10:19 ; Status DC Sodium Chloride 1,000 ml @ 1,000 mls/hr Q1H PRN IV hypotension; Start 02/20/17 at 09:55; Stop 02/20/17 at 10:19; Status DC Sodium Chloride 1,000 ml @ 400 mls/hr Q2H30M PRN IV PATENCY; Start 02/20/17 at 09:55; Stop 02/20/17 at 10:19; Status DC Info (PHARMACY MONITORING -- do not chart) 1 each PRN DAILY PRN MC SEE COMMENTS ; Start 02/20/17 at 10:00; Stop 02/20/17 at 10:04; Status DC Info (PHARMACY MONITORING -- do not chart) 1 each PRN DAILY PRN MC SEE COMMENTS ; Start 02/20/17 at 10:00 Allopurinol (Zyloprim) 300 mg DAILY PO Last administered on 02/20/17 12:25; Start 02/20/17 at 11:00 Aspirin (Ecotrin) 81 mg DAILY PO Last administered on 02/20/17 12:38; Start at 11:00 Carvedilol (Coreg) 12.5 mg BIDWMEALS PO Last administered on 02/20/17 12:40; Start 02/20/17 at 12:00 Paricalcitol (Zemplar) 1 mcg DAILY PO Last administered on 02/20/17 12:38; Start 02/20/17 at 11:00 Sevelamer Carbonate (Renvela) 1,600 mg TIDWMEALS PO Last administered on 12:25; Start 02/20/17 at 12:00 Sodium Bicarbonate (Sodium Bicarbonate) 850 mg BID PO Last administered on 02/20 12:26; Start 02/20/17 at 11:00 Non-Formulary Medication 2 puff PRN Q4HRS PRN INH SHORTNESS OF BREATH; Start at 10:30; Stop 02/20/17 at 11:17; Status DC Non-Formulary Medication 1 puff Q12HR IH ; Start 02/20/17 at 21:00; Stop at 21:00; Status DC Pantoprazole Sodium (Protonix) 40 mg DAILYAC PO Last administered on 02/20/17 12:26; Start 02/20/17 at 11:30 Insulin Detemir (Levemir) 20 units QHS SQ ; Start 02/20/17 at 21:00 Amlodipine Besylate (Norvasc) 10 mg DAILY PO Last administered on 02/20/17 12: 40; Start 02/20/17 at 11:00 Albuterol Sulfate (Ventolin Neb Soln) 2.5 mg PRN Q4HRS PRN NEB SHORTNESS OF BREATH; Start 02/20/17 at 11:15 Albuterol Sulfate (Ventolin Neb Soln) 2.5 mg Q6HRS NEB Last administered on 13:22; Start 02/20/17 at 12:00 Budesonide (Pulmicort) 0.5 mg RTBID NEB ; Start 02/20/17 at 20:00 Active Scripts Active Reported Lantus Solostar (Insulin Glargine,Hum.rec.anlog) 100 Unit/1 Ml Insuln.pen 22 Unit SQ QHS Droxia (Hydroxyurea) 200 Mg Capsule 200 Mg PO DAILY Feosol (Ferrous Sulfate) 325 Mg Tablet 325 Mg PO DAILY Coreg (Carvedilol) 12.5 Mg Tablet 1 Tab PO BID Bumetanide 2 Mg Tablet 2 Tab PO BID Aspir 81 (Aspirin) 81 Mg Tablet.dr 1 Tab PO DAILY Allopurinol 300 Mg Tablet 1 Tab PO DAILY Advair 250-50 Diskus (Fluticasone/Salmeterol) 1 Each Disk.w.dev 1 Puff IH Q12HR Zetia (Ezetimibe) 10 Mg Tablet 0.5 Tab PO DAILY Zemplar (Paricalcitol) 1 Mcg Capsule 1 Cap PO DAILY Sodium Bicarbonate 650 Mg Tablet 850 Mg PO BID Sensipar (Cinacalcet Hcl) 30 Mg Tablet 30 Mg PO QODAY Renvela (Sevelamer Carbonate) 800 Mg Tablet 2 Tab PO TID Proair Hfa Inhaler (Albuterol Sulfate) 8.5 Gm Hfa.aer.ad 2 Puff INH PRN Q4HRS PRN Omeprazole 40 Mg Capsule.dr 1 Cap PO DAILY Percocet 5-325 Mg Tablet (Oxycodone/Acetaminophen) 1 Each Tablet 1-2 Tab PO PRN Q6HRS PRN Novolog Flexpen (Insulin Aspart) 100 Unit/1 Ml Insuln.pen 15 Unit SQ DAILY Novolog Flexpen (Insulin Aspart) 100 Unit/1 Ml Insuln.pen 12 Unit SQ BIDACBL Norvasc (Amlodipine Besylate) 10 Mg Tablet 10 Mg PO DAILY Miralax (Polyethylene Glycol 3350) 17 Gm Powd.pack 1 Packet PO DAILY Lipitor (Atorvastatin Calcium) 40 Mg Tablet 1 Tab PO DAILY Lidocaine 1 Each Adh..patch 1 Each TP DAILY Vitals/I & O Vital Sign - Last 24 Hours 02/19/17 02/19/17 02/19/17 02/19/17 15:00 19:33 20:00 23:00 Temp 97.8 98.4 98.6 97.8 98.4 98.6 Pulse 102 105 112 Resp 16 18 18 B/P (MAP) 184/86 (118) 167/80 (109) 167/82 (110) Pulse Ox 98 96 95 O2 Delivery Room Air Room Air Room Air Room Air O2 Flow Rate 2.0 02/20/17 02/20/17 02/20/17 02/20/17 03:47 07:00 08:00 08:54 Temp 98.6 98.1 98.6 98.1 Pulse 113 115 Resp 18 18 B/P (MAP) 176/98 (124) 171/97 (121) Pulse Ox 96 95 O2 Delivery Room Air Room Air Room Air Room Air 02/20/17 02/20/17 02/20/17 02/20/17 12:30 12:40 12:40 13:27 Temp 97.5 97.5 Pulse 101 101 101 Resp 18 B/P (MAP) 152/81 (104) 152/81 152/81 Pulse Ox 98 97 O2 Delivery Room Air Room Air Nutrition Consultation Dietary Evaluation: Recommendations by RD: Increase Calorie Intake Comments: PPN/TPN if PO intake on liquid diet unable to meet > 75% needs Expected Outcomes/Goals: Pt to tolerate TF at goal (Novasource Renal@35 ml/hr) Intake to meet > 75% est needs Interpretation of weight loss: >1-2% in 1 week Malnutrition Findings: Food and Nutrition Intake (Mod: <75% est energy req 7days Weight Status: Appropriate ALPESH BROWN MD Feb 20, 2017 14:31
[2017-02-20 15:09] VITALS: BP 145/83
[2017-02-20] MEDS: HYDROcodone/APAP 5/325MG 1 TAB TABLET PO PRN (16:03)
[2017-02-20] MEDS: HYDROXYUREA 500 MG CAPSULE PO SCH (16:11)
[2017-02-20] MEDS: BUDESONIDE 0.5 MG/2 ML NEBU. NEB SCH (18:59)
[2017-02-20 19:25] VITALS: BP 134/76
[2017-02-20] MEDS ORDERED: NON FORMULARY ITEM (Fluticasone/Salmeterol (Advair 250-50 Diskus) 1 PUFF) IH SCH (21:00)
[2017-02-20] MEDS: INSULIN DETEMIR 300 UNITS/3 ML INSULN.PEN. SQ SCH (21:23)
[2017-02-20 23:30] VITALS: BP 152/92
[2017-02-21] VITALS (13 sets, daily range): BP systolic 129–166; BP diastolic 75–109
[2017-02-21 04:30] LABS: BASO # 0.4 x10^3/uL (0.0-0.2); BASO % 1 % (0-3); EOS % 1 % (0-3); HEMATOCRIT 27.6 % (36.0-47.0); HEMOGLOBIN 8.8 g/dL (12.0-15.5); LYMPH # 0.7 x10^3/uL (1.0-4.8); LYMPH % 1 % (24-48); MEAN CORPUSCULAR HEMOGLOBIN 28 pg (25-35); MEAN CORPUSCULAR HGB CONC 32 g/dL (31-37); MEAN CORPUSCULAR VOLUME 89 fL (79-100); MONO % 1 % (0-9); NEUT % 96 % (31-73); PLATELET COUNT 255 x10^3/uL (140-400); RED BLOOD COUNT 3.09 x10^6/uL (3.50-5.40); RED CELL DISTRIBUTION WIDTH 17.4 % (11.5-14.5)
[2017-02-21 04:32] LABS: WHITE BLOOD COUNT 64.6 x10^3/uL (4.0-11.0)
[2017-02-21 05:04] LABS: INR 1.1 (0.8-1.1); PROTHROMBIN TIME PATIENT 13.4 SEC (11.7-14.0)
[2017-02-21 05:08] LABS: CALCIUM 9.5 mg/dL (8.5-10.1); CREATININE 2.4 mg/dL (0.6-1.0); GFR 24.1; PHOSPHORUS 2.3 mg/dL (2.6-4.7); POTASSIUM 3.8 mmol/L (3.5-5.1)
[2017-02-21 05:14] LABS: ALBUMIN 2.1 g/dL (3.4-5.0); DIRECT BILIRUBIN 0.4 mg/dL (0.0-0.2); TOTAL BILIRUBIN 1.2 mg/dL (0.2-1.0); TOTAL PROTEIN 4.9 g/dL (6.4-8.2)
[2017-02-21] MEDS: PANTOPRAZOLE 40 MG TABLET.DR. PO SCH ×2 (07:30→10:38)
[2017-02-21] MEDS: SEVELAMER CARBONATE 800 MG TABLET. PO SCH ×4 (07:32→16:04)
[2017-02-21] MEDS: CARVEDILOL 12.5 MG TABLET. PO SCH ×3 (07:32→16:05)
[2017-02-21] MEDS: ASPIRIN ENTERIC COATED 81 MG TABLET.DR. PO SCH ×2 (07:35→10:39)
[2017-02-21] MEDS: PARICALCITOL 1 MCG CAPSULE PO SCH ×2 (07:36→10:40)
[2017-02-21] MEDS: amLODIPine BESYLATE 10 MG TABLET PO SCH ×2 (07:36→10:40)
[2017-02-21] MEDS: SODIUM BICARBONATE 650 MG TABLET. PO SCH ×3 (07:36→20:43)
[2017-02-21] MEDS: ALLOPURINOL 300 MG TABLET. PO SCH ×2 (07:38→10:40)
[2017-02-21] MEDS: BUDESONIDE 0.5 MG/2 ML NEBU. NEB SCH ×2 (07:41→19:56)
[2017-02-21] MEDS: ALBUTEROL SULFATE 2.5 MG/3 ML NEBU. NEB SCH ×4 (07:41→23:34)
--- NOTE | 2017-02-21 08:40 | PATHOLOGY ---
PATHOLOGY REPORT * * * * * * * * FINAL DIAGNOSIS: Peripheral smear: - Marked neutrophilc leukocytosis with leukoerythroblastic reaction. - Normocytic normochromic anemia, marked, status post transfusion, with poikilocytosis. - Marked thrombocytosis with few large and giant platelets. COMMENT: The peripheral blood findings are consistent with a myeloproliferative stage of a chronic myeloproliferative disorder, most likely evolving from JAK2+ essential thrombocytosis. There is no evidence of blast crisis. (JPM:mgr; 02/20/2017) REPORT ELECTRONICALLY SIGNED BY: Kavon Troncoso M.D. DATE/TIME: 02/21/2017 08:39 * * * * * * * * MICROSCOPIC DESCRIPTION: Laboratory Data: The WBC count is 107.1 K/CMM, and the WBC differential reveals 87% segmented neutrophils and 13% bands. There are two nucleated RBCs/100 WBCs noted. The RBC count is 2.52 M/CMM, hemoglobin 7.0 G/DL, hematocrit 22.3%, MCV 89 FL, MCH 28 PG, MCHC 31 G/DL, and the RDW is 17.8%. The platelet count is 574 K/CMM. Peripheral Smear: The peripheral smear is reviewed. The WBC count is markedly increased. There is a marked absolute neutrophilia with leukoerythroblastic reaction. The WBC differential reveals a predominance of segmented neutrophils, with a smaller population of band neutrophils. There is a leukoerythroblastic reaction comprised of occasional circulating myelocytes and metamyelocytes and nucleated red blood cells. There is a rare circulating blast. There is no myelocyte bulge, absolute basophilia, or absolute eosinophilia. There are occasional circulating small lymphocytes. Red blood cells predominantly appear normochromic and normocytic. There is mild polychromasia. Red blood cells show mild anisocytosis and mild poikilocytosis with presence of several ovalocytes, teardrop red blood cells, and red blood cell fragments. Platelets are moderately to markedly increased. There are a few large and giant platelets noted. INITIAL CPT CODE(S): A; [place] Professional services performed by [facility] at [address] [facility] [place] [address] Technical services performed by [facility] at [address] [place] [address], [address], [place] [address]. SPECIMEN(S) RECEIVED: A.Peripheral smear requested by Dr. 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
[2017-02-21] MEDS ORDERED: LIDOCAINE 1%/EPI 1:100,000 20 ML VIAL. ONE (09:11)
[2017-02-21] MEDS ORDERED: HEPARIN for IV BOLUS 10,000 UNIT/10 ML VIAL. ONE (09:11)
[2017-02-21] MEDS ORDERED: fentaNYL PF VIAL 100 MCG/2 ML VIAL ONE (09:31)
[2017-02-21] MEDS ORDERED: MIDAZOLAM HCL/PF 2 MG/2 ML VIAL. ONE (09:31)
[2017-02-21] MEDS ORDERED: fentaNYL PF VIAL 100 MCG/2 ML VIAL IV ONE (10:00)
[2017-02-21] MEDS ORDERED: MIDAZOLAM HCL/PF 2 MG/2 ML VIAL. IV ONE (10:00)
[2017-02-21] MEDS ORDERED: LIDOCAINE 1%/EPI 1:100,000 20 ML VIAL. IJ ONE (10:00)
--- NOTE | 2017-02-21 10:06 | PDOC ---
MODERATE SEDATION ASSESSMENT RISKS/ALTERNATIVES Risks/Alternatives Risks and alternatives of this type of sedation and procedure discussed with: RISK/ALTERNATIVES: Patient H & P ON CHART H & P H & P on chart and reviewed for co-morbid conditions and appropriate labs. H&P ON CHART: Yes STATUS PREG STATUS ASSESSED: Yes MEDS/ALLERGIES REVIEWED Meds/Allergies Reviewed Medications and Allergies including time and route of recently administered narcotics and sedatives. MEDS/ALLERGIES REVIEWED: Yes ASA RATING ASA RATING: II AIRWAY ASSESSMENT Airway Assessment Airway patency, oral function limitations, presence of caps, crowns, dentures, partials, and ability to extend neck assessed. AIRWAY ASSESSMENT: Yes MALLAMPATI SCORE MALLAMPATI SCORE: II PRE-SEDATION ASSESSMENT PRE-SEDATION ASSESSMENT: Yes ARNAV JIMENEZ MD Feb 21, 2017 10:06
--- NOTE | 2017-02-21 10:07 | PDOC ---
BRIEF OPERATIVE NOTE Pre-Op Diagnosis ARF Post-Op Diagnosis same Procedure Performed Tunnelled HD Surgeon Aldo Anesthesia Type: Conscious Sedation Findings 23 cm palindrome with excellent manual flows Complications No immediate ARNAV JIMENEZ MD Feb 21, 2017 10:06
--- NOTE | 2017-02-21 10:11 | PDOC ---
Infectious Disease Note Subjective Subjective Comfortable, denies pain Supplemental O2 ROS ROS GEN: Denies fevers, chills, sweats HEENT: Denies blurred vision, sore throat CV: Denies chest pain RESP: Denies shortness of air, cough GI: Denies n/v/d NEURO: Denies confusion, dizziness MSK: Denies weakness, joint pain/swelling Vital Sign Vital Signs Vital Signs Date Time Temp Pulse Resp B/P (MAP) Pulse Ox O2 Delivery O2 Flow Rate FiO2 02/21/17 10:07 21 94 Nasal Cannula 2.0 02/21/17 07:00 97.9 102 158/94 (115) 97.9 Physical Exam PHYSICAL EXAM GENERAL: NAD, Alert HEENT: PERRL, OC/OP NECK: Supple, no JVD, no LN LUNGS: Clear HEART: S1S2, no gallop, no murmur ABD: Soft, NT, no organomegaly, no rebound EXT: No edema, no cyanosis PRODUCTION TEAM MEMBER: Alert, oriented x 3, no focal neurologic deficit SKIN: No rash IV: ok Labs Lab Laboratory Tests Test 02/20/17 14:15 02/20/17 17:37 02/20/17 20:57 02/21/17 03:25 Glucose (Fingerstick) 301 mg/dL (70-99) 308 mg/dL (70-99) 308 mg/dL (70-99) White Blood Count 64.6 x10^3/uL (4.0-11.0) Red Blood Count 3.09 x10^6/uL (3.50-5.40) Hemoglobin 8.8 g/dL (12.0-15.5) Hematocrit 27.6 % (36.0-47.0) Mean Corpuscular Volume 89 fL (79-100) Mean Corpuscular Hemoglobin 28 pg (25-35) Mean Corpuscular Hemoglobin Concent 32 g/dL (31-37) Red Cell Distribution Width 17.4 % (11.5-14.5) Platelet Count 255 x10^3/uL (140-400) Neutrophils (%) (Auto) 96 % (31-73) Lymphocytes (%) (Auto) 1 % (24-48) Monocytes (%) (Auto) 1 % (0-9) Eosinophils (%) (Auto) 1 % (0-3) Basophils (%) (Auto) 1 % (0-3) Neutrophils # (Auto) 62.2 x10^3uL (1.8-7.7) Lymphocytes # (Auto) 0.7 x10^3/uL (1.0-4.8) Monocytes # (Auto) 0.7 x10^3/uL (0.0-1.1) Eosinophils # (Auto) 0.7 x10^3/uL (0.0-0.7) Basophils # (Auto) 0.4 x10^3/uL (0.0-0.2) Prothrombin Time 13.4 SEC (11.7-14.0) Prothromb Time International Ratio 1.1 (0.8-1.1) Activated Partial Thromboplast Time 35 SEC (24-38) Sodium Level 138 mmol/L (136-145) Potassium Level 3.8 mmol/L (3.5-5.1) Chloride Level 100 mmol/L (98-107) Carbon Dioxide Level 31 mmol/L (21-32) Anion Gap 7 (6-14) Blood Urea Nitrogen 21 mg/dL (7-20) Creatinine 2.4 mg/dL (0.6-1.0) Estimated GFR (Cockcroft-Gault) 24.1 Glucose Level 198 mg/dL (70-99) Calcium Level 9.5 mg/dL (8.5-10.1) Phosphorus Level 2.3 mg/dL (2.6-4.7) Magnesium Level 2.0 mg/dL (1.8-2.4) Total Bilirubin 1.2 mg/dL (0.2-1.0) Direct Bilirubin 0.4 mg/dL (0.0-0.2) Aspartate Amino Transf (AST/SGOT) 43 U/L (15-37) Alanine Aminotransferase (ALT/SGPT) 10 U/L (14-59) Alkaline Phosphatase 183 U/L (46-116) Total Protein 4.9 g/dL (6.4-8.2) Albumin 2.1 g/dL (3.4-5.0) Test 02/21/17 07:33 Glucose (Fingerstick) 177 mg/dL (70-99) Micro all cultures are neg Objective Assessment Sepsis - POA (hypothermia/leukocytosis/lactic acidosis). cults neg Leukocytosis - in part reactive to bleed and transfusions/myelofibrosis. Better Elevated TSH - ? euthyroid. T4 ok Abd hematoma - Possibly infected - cult negative CKD - needing PD but not yet started (states PD cath placed 02/09). 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
--- NOTE | 2017-02-21 12:05 | RAD ---
Procedure: Tunneled hemodialysis catheter placement Clinical Indication: 71-year-old requiring long-term hemodialysis Sedation: Conscious sedation was administered for 31 minutes. The patient was monitored by a qualified independent observer throughout the time of sedation. Please refer to the medical record for exact doses of medications utilized to achieve moderate sedation. Antibiotics: Antibiotic was administered intravenously within 1 hour of the procedure start time. Fluoro Time: 0.4 minutes. Images: 1 Contrast: None Sterility: All elements of maximal sterile barrier technique including the use of a cap, mask, sterile gown, sterile gloves, large sterile sheet, appropriate hand hygiene, and 2% chlorhexidine for cutaneous antisepsis (or acceptable alternative antiseptic per current guidelines) were followed for this procedure. Consent: The procedure was explained in its entirety to the patient or the patients designated credit and collections representative by a member of the treatment team, including a discussion of the risks, benefits and commonly accepted alternatives to the procedure, as well as the expected consequences of no therapy whatsoever. Discussion of the risks included, but was not limited to, those that are most frequent and those that are rare but possibly severe or life-threatening, as well as the possibility of unforeseen complications. Technique and Findings: Following informed consent, the patient was prepped and draped in the usual sterile fashion. Ultrasound interrogation of the right neck revealed patency and compressibility of the right internal jugular vein. A 21-gauge micropuncture was then used to gain access to this vein under ultrasound guidance. A hard copy ultrasound image was recorded. The needle was exchanged over a wire for a 4 [place]kin[place] sheath which was used to guide an Amplatz wire into the IVC. The skin over the right anterior chest wall was copiously anesthetized with 1% Lidocaine plus Epinephrine and a small dermatotomy was made. A 23 cm Palindrome tunneled hemodialysis catheter was then tunneled subcutaneously towards the neck dermatotomy and deployed through a large caliber peel-away sheath under fluoroscopic guidance such that the distal tip resided in the mid right atrium. Manual flow rates were assessed and found to be excellent. The catheter was then flushed, packed with Heparin, capped, and sutured to the skin. The neck dermatotomy was closed with Dermabond. Complications: No immediate Impression: 1. Tunneled hemodialysis catheter placement as described. This catheter demonstrates excellent manual flow rates and is suitable for use immediately.
--- NOTE | 2017-02-21 12:48 | PDOC ---
PROGRESS NOTES Chief Complaint Chief Complaint AMS Sepsis 1. Metabolic encephalopathy: 2/2 infection. resolved. 2. Sepsis: hypotension, hypothermia resolved. no bacteria isolated in blood, peritoneal fluid and urine. D/w Dr Burton Kinsey: stop Abx 3. ESRD: currently HD. had PD cath placed by RUBIA 1 week prior to presentation 4. Anemia: 2/2 ESRD, some component of acute bleed with hemoperitoneum post cath placement. EPO, transfuse with HD as needed 5. 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 on hydrea, allopurinol 6. Leukocytosis: multifactorial, mainly MPD trending towards AML, some reactive component. improving. as per Dr Us 7. Thrombocytosis: reactive plus MPD. trending down 8. Hepatitis: prob reactive with initial presentation. Hep screen neg. seems to be improving. recheck in AM 9. Coagulopathy: suspected 2/2 initial presentation. recheck in AM 10. DM2: poorly controlled. restart long-acting insulin, cont ISS 11. Nutrition: on PPN, TPN and Dobhoff feeds. stop IV nutrition. swallow eval RUBEN 12. SVT: restart home BB, monitor 13. HTN: poortly controlled. restart home norvasc, monitor 14. HLD: on statin and zetia at home. currently on hold Condition: stable Prognosis: poor Palliative care consult History of Present Illness History of Present Illness doing ok, poor PO intake, eating minimal still on TPN she would prefer to do PD, on HD plan, tunneled cath placed r Vitals Vitals Vital Signs Date Time Temp Pulse Resp B/P (MAP) Pulse Ox O2 Delivery O2 Flow Rate FiO2 02/21/17 12:15 104 161/92 (115) 02/21/17 11:00 02/21/17 10:15 2.0 Physical Exam General: Alert, Oriented X3 Heart: Normal S1, Normal S2 Lungs: Clear Abdomen: Normal bowel sounds, Soft, Other (bruise mid abd, close to PD cath) Extremities: No clubbing, No cyanosis Skin: No rashes, No significant lesion Labs LABS Laboratory Tests Test 02/20/17 14:15 02/20/17 17:37 02/20/17 20:57 02/21/17 03:25 Glucose (Fingerstick) 301 mg/dL (70-99) 308 mg/dL (70-99) 308 mg/dL (70-99) White Blood Count 64.6 x10^3/uL (4.0-11.0) Red Blood Count 3.09 x10^6/uL (3.50-5.40) Hemoglobin 8.8 g/dL (12.0-15.5) Hematocrit 27.6 % (36.0-47.0) Mean Corpuscular Volume 89 fL (79-100) Mean Corpuscular Hemoglobin 28 pg (25-35) Mean Corpuscular Hemoglobin Concent 32 g/dL (31-37) Red Cell Distribution Width 17.4 % (11.5-14.5) Platelet Count 255 x10^3/uL (140-400) Neutrophils (%) (Auto) 96 % (31-73) Lymphocytes (%) (Auto) 1 % (24-48) Monocytes (%) (Auto) 1 % (0-9) Eosinophils (%) (Auto) 1 % (0-3) Basophils (%) (Auto) 1 % (0-3) Neutrophils # (Auto) 62.2 x10^3uL (1.8-7.7) Lymphocytes # (Auto) 0.7 x10^3/uL (1.0-4.8) Monocytes # (Auto) 0.7 x10^3/uL (0.0-1.1) Eosinophils # (Auto) 0.7 x10^3/uL (0.0-0.7) Basophils # (Auto) 0.4 x10^3/uL (0.0-0.2) Prothrombin Time 13.4 SEC (11.7-14.0) Prothromb Time International Ratio 1.1 (0.8-1.1) Activated Partial Thromboplast Time 35 SEC (24-38) Sodium Level 138 mmol/L (136-145) Potassium Level 3.8 mmol/L (3.5-5.1) Chloride Level 100 mmol/L (98-107) Carbon Dioxide Level 31 mmol/L (21-32) Anion Gap 7 (6-14) Blood Urea Nitrogen 21 mg/dL (7-20) Creatinine 2.4 mg/dL (0.6-1.0) Estimated GFR (Cockcroft-Gault) 24.1 Glucose Level 198 mg/dL (70-99) Calcium Level 9.5 mg/dL (8.5-10.1) Phosphorus Level 2.3 mg/dL (2.6-4.7) Magnesium Level 2.0 mg/dL (1.8-2.4) Total Bilirubin 1.2 mg/dL (0.2-1.0) Direct Bilirubin 0.4 mg/dL (0.0-0.2) Aspartate Amino Transf (AST/SGOT) 43 U/L (15-37) Alanine Aminotransferase (ALT/SGPT) 10 U/L (14-59) Alkaline Phosphatase 183 U/L (46-116) Total Protein 4.9 g/dL (6.4-8.2) Albumin 2.1 g/dL (3.4-5.0) Test 02/21/17 07:33 02/21/17 11:51 Glucose (Fingerstick) 177 mg/dL (70-99) 172 mg/dL (70-99) Assessment and Plan Assessmemt and Plan Problems Medical Problems: (1) Anemia Status: Acute (2) Coagulopathy Status: Acute (3) Congestive heart failure Status: Acute (4) End stage renal disease Status: Acute (5) Hypoglycemia Status: Acute (6) Hypotension Status: Acute (7) Myelodysplastic syndrome Status: Acute Problems: Comment Review of Relevant I have reviewed the following items laure (where applicable) has been applied. Labs Laboratory Tests Test 02/20/17 05:55 02/20/17 08:01 02/20/17 14:15 02/20/17 17:37 White Blood Count 67.1 x10^3/uL (4.0-11.0) Red Blood Count 2.97 x10^6/uL (3.50-5.40) Hemoglobin 8.5 g/dL (12.0-15.5) Hematocrit 26.1 % (36.0-47.0) Mean Corpuscular Volume 88 fL (79-100) Mean Corpuscular Hemoglobin 29 pg (25-35) Mean Corpuscular Hemoglobin Concent 33 g/dL (31-37) Red Cell Distribution Width 17.6 % (11.5-14.5) Platelet Count 301 x10^3/uL (140-400) Neutrophils (%) (Auto) 97 % (31-73) Lymphocytes (%) (Auto) 1 % (24-48) Monocytes (%) (Auto) 1 % (0-9) Eosinophils (%) (Auto) 1 % (0-3) Basophils (%) (Auto) 0 % (0-3) Neutrophils # (Auto) 65.1 x10^3uL (1.8-7.7) Lymphocytes # (Auto) 0.7 x10^3/uL (1.0-4.8) Monocytes # (Auto) 0.7 x10^3/uL (0.0-1.1) Eosinophils # (Auto) 0.4 x10^3/uL (0.0-0.7) Basophils # (Auto) 0.2 x10^3/uL (0.0-0.2) Sodium Level 138 mmol/L (136-145) Potassium Level 4.2 mmol/L (3.5-5.1) Chloride Level 100 mmol/L (98-107) Carbon Dioxide Level 32 mmol/L (21-32) Anion Gap 6 (6-14) Blood Urea Nitrogen 28 mg/dL (7-20) Creatinine 3.0 mg/dL (0.6-1.0) Estimated GFR (Cockcroft-Gault) 18.7 Glucose Level 476 mg/dL (70-99) Calcium Level 9.1 mg/dL (8.5-10.1) Phosphorus Level 2.9 mg/dL (2.6-4.7) Magnesium Level 2.1 mg/dL (1.8-2.4) Hepatitis B Core Total Antibody Negative (Negative) Glucose (Fingerstick) 446 mg/dL (70-99) 301 mg/dL (70-99) 308 mg/dL (70-99) Test 02/20/17 20:57 02/21/17 03:25 02/21/17 07:33 02/21/17 11:51 Glucose (Fingerstick) 308 mg/dL (70-99) 177 mg/dL (70-99) 172 mg/dL (70-99) White Blood Count 64.6 x10^3/uL (4.0-11.0) Red Blood Count 3.09 x10^6/uL (3.50-5.40) Hemoglobin 8.8 g/dL (12.0-15.5) Hematocrit 27.6 % (36.0-47.0) Mean Corpuscular Volume 89 fL (79-100) Mean Corpuscular Hemoglobin 28 pg (25-35) Mean Corpuscular Hemoglobin Concent 32 g/dL (31-37) Red Cell Distribution Width 17.4 % (11.5-14.5) Platelet Count 255 x10^3/uL (140-400) Neutrophils (%) (Auto) 96 % (31-73) Lymphocytes (%) (Auto) 1 % (24-48) Monocytes (%) (Auto) 1 % (0-9) Eosinophils (%) (Auto) 1 % (0-3) Basophils (%) (Auto) 1 % (0-3) Neutrophils # (Auto) 62.2 x10^3uL (1.8-7.7) Lymphocytes # (Auto) 0.7 x10^3/uL (1.0-4.8) Monocytes # (Auto) 0.7 x10^3/uL (0.0-1.1) Eosinophils # (Auto) 0.7 x10^3/uL (0.0-0.7) Basophils # (Auto) 0.4 x10^3/uL (0.0-0.2) Prothrombin Time 13.4 SEC (11.7-14.0) Prothromb Time International Ratio 1.1 (0.8-1.1) Activated Partial Thromboplast Time 35 SEC (24-38) Sodium Level 138 mmol/L (136-145) Potassium Level 3.8 mmol/L (3.5-5.1) Chloride Level 100 mmol/L (98-107) Carbon Dioxide Level 31 mmol/L (21-32) Anion Gap 7 (6-14) Blood Urea Nitrogen 21 mg/dL (7-20) Creatinine 2.4 mg/dL (0.6-1.0) Estimated GFR (Cockcroft-Gault) 24.1 Glucose Level 198 mg/dL (70-99) Calcium Level 9.5 mg/dL (8.5-10.1) Phosphorus Level 2.3 mg/dL (2.6-4.7) Magnesium Level 2.0 mg/dL (1.8-2.4) Total Bilirubin 1.2 mg/dL (0.2-1.0) Direct Bilirubin 0.4 mg/dL (0.0-0.2) Aspartate Amino Transf (AST/SGOT) 43 U/L (15-37) Alanine Aminotransferase (ALT/SGPT) 10 U/L (14-59) Alkaline Phosphatase 183 U/L (46-116) Total Protein 4.9 g/dL (6.4-8.2) Albumin 2.1 g/dL (3.4-5.0) Laboratory Tests Test 02/20/17 14:15 02/20/17 17:37 02/20/17 20:57 02/21/17 03:25 Glucose (Fingerstick) 301 mg/dL (70-99) 308 mg/dL (70-99) 308 mg/dL (70-99) White Blood Count 64.6 x10^3/uL (4.0-11.0) Red Blood Count 3.09 x10^6/uL (3.50-5.40) Hemoglobin 8.8 g/dL (12.0-15.5) Hematocrit 27.6 % (36.0-47.0) Mean Corpuscular Volume 89 fL (79-100) Mean Corpuscular Hemoglobin 28 pg (25-35) Mean Corpuscular Hemoglobin Concent 32 g/dL (31-37) Red Cell Distribution Width 17.4 % (11.5-14.5) Platelet Count 255 x10^3/uL (140-400) Neutrophils (%) (Auto) 96 % (31-73) Lymphocytes (%) (Auto) 1 % (24-48) Monocytes (%) (Auto) 1 % (0-9) Eosinophils (%) (Auto) 1 % (0-3) Basophils (%) (Auto) 1 % (0-3) Neutrophils # (Auto) 62.2 x10^3uL (1.8-7.7) Lymphocytes # (Auto) 0.7 x10^3/uL (1.0-4.8) Monocytes # (Auto) 0.7 x10^3/uL (0.0-1.1) Eosinophils # (Auto) 0.7 x10^3/uL (0.0-0.7) Basophils # (Auto) 0.4 x10^3/uL (0.0-0.2) Prothrombin Time 13.4 SEC (11.7-14.0) Prothromb Time International Ratio 1.1 (0.8-1.1) Activated Partial Thromboplast Time 35 SEC (24-38) Sodium Level 138 mmol/L (136-145) Potassium Level 3.8 mmol/L (3.5-5.1) Chloride Level 100 mmol/L (98-107) Carbon Dioxide Level 31 mmol/L (21-32) Anion Gap 7 (6-14) Blood Urea Nitrogen 21 mg/dL (7-20) Creatinine 2.4 mg/dL (0.6-1.0) Estimated GFR (Cockcroft-Gault) 24.1 Glucose Level 198 mg/dL (70-99) Calcium Level 9.5 mg/dL (8.5-10.1) Phosphorus Level 2.3 mg/dL (2.6-4.7) Magnesium Level 2.0 mg/dL (1.8-2.4) Total Bilirubin 1.2 mg/dL (0.2-1.0) Direct Bilirubin 0.4 mg/dL (0.0-0.2) Aspartate Amino Transf (AST/SGOT) 43 U/L (15-37) Alanine Aminotransferase (ALT/SGPT) 10 U/L (14-59) Alkaline Phosphatase 183 U/L (46-116) Total Protein 4.9 g/dL (6.4-8.2) Albumin 2.1 g/dL (3.4-5.0) Test 02/21/17 07:33 02/21/17 11:51 Glucose (Fingerstick) 177 mg/dL (70-99) 172 mg/dL (70-99) Microbiology 02/14/17 Blood Culture - Final, Complete NO GROWTH AFTER 5 DAYS 02/14/17 Gram Stain - Final, Complete 02/14/17 Urine Culture - Final, Complete 02/14/17 Urine Culture Result 1 (DENNY) - Final, Complete Medications Current Medications Dextrose (Dextrose 50%-Water Syringe) 25 gm STK-MED ONCE IV ; Start 02/14/17 at 21:20; Stop 02/14/17 at 21:21; Status DC Sodium Chloride 2,040 ml @ 510 mls/hr Q4H IV Last administered on 02/14/17t 21 :33; Start 02/14/17 at 21:33; Stop 02/14/17 at 22:05; Status DC Vancomycin HCl (Vanco Per Pharmacy) 1 each PRN DAILY PRN MC SEE COMMENTS Last administered on 02/17/17 07:34; Start 02/14/17 at 22:00; Stop 02/17/17 at 08:16 ; Status DC Levofloxacin/ Dextrose (Levaquin Per Pharmacy) 1 each PRN DAILY PRN MC SEE COMMENTS; Start 02/14/17 at 23:00; Stop 02/15/17 at 07:38; Status DC Vancomycin HCl 1.75 gm/Sodium Chloride 500 ml @ 250 mls/hr 1X ONCE IV Last administered on 02/14/17 22:21; Start 02/14/17 at 22:15; Stop 02/15/17 at 00:14 ; Status DC Sodium Chloride 1,000 ml @ 510 mls/hr Q1H58M IV ; Start 02/14/17 at 22:15; Stop 02/15/17 at 01:32; Status DC Levofloxacin/ Dextrose 100 ml @ 100 mls/hr Q48H IV Last administered on 22:58; Start 02/14/17 at 23:00; Stop 02/15/17 at 07:38; Status DC Dextrose (Dextrose 50%-Water Syringe) 25 gm 1X ONCE IV Last administered on 22:52; Start 02/14/17 at 23:00; Stop 02/14/17 at 23:01; Status DC Dextrose (Dextrose 50%-Water Syringe) 25 gm 1X ONCE IV ; Start 02/14/17 at 23: 00; Stop 02/14/17 at 23:01; Status DC Furosemide (Lasix) 40 mg 1X PRN PRN IV blood transfusion; Start 02/14/17 at 23: 00; Stop 02/15/17 at 22:59; Status DC Dopamine HCl/ Dextrose 250 ml @ 12.688 mls/ hr CONT PRN IV SEE I/O RECORD Last administered on 02/14/17 23:44; Start 02/14/17 at 23:15; Stop 02/20/17 at 10:19; Status DC Ondansetron HCl (Zofran) 4 mg PRN Q6HRS PRN IV NAUSEA/VOMITING Last administered on 02/17/17 12:29; Start 02/14/17 at 23:15 Famotidine (Pepcid) 10 mg BID IVP Last administered on 02/19/17 20:21; Start 02/15/17 at 09:00; Stop 02/20/17 at 12:02; Status DC Acetaminophen (Tylenol) 120 mg PRN Q6HRS PRN WI MILD PAIN / TEMP; Start at 23:15 Acetaminophen (Tylenol) 500 mg PRN Q6HRS PRN PO MILD PAIN / TEMP Last administered on 02/20/17 13:13; Start 02/14/17 at 23:15 Vancomycin HCl 1 each 1X ONCE MC ; Start 02/16/17 at 22:30; Stop 02/16/17 at 22 :30; Status DC Ondansetron HCl (Zofran) 4 mg PRN Q8HRS PRN IV NAUSEA/VOMITING; Start 02/14/17 at 23:45; Stop 02/15/17 at 23:44; Status DC Dextrose/Sodium Chloride 1,000 ml @ 125 mls/hr 1X ONCE IV ; Start 02/14/17 at 23:45; Stop 02/15/17 at 07:44; Status DC Piperacillin Sod/ Tazobactam Sod 2.25 gm/Sodium Chloride 50 ml @ 100 mls/hr Q6HRS IV Last administered on 02/20/17 05:51; Start 02/15/17 at 07:30; Stop at 10:03; Status DC Micafungin Sodium 100 mg/Dextrose 100 ml @ 100 mls/hr Q24H IV Last administered on 02/19/17 09:25; Start 02/15/17 at 08:00; Stop 02/20/17 at 10:03 ; Status DC Fentanyl Citrate (Fentanyl 2ml Vial) 50 mcg PRN Q2HR PRN IV PAIN Last administered on 02/18/17 20:52; Start 02/15/17 at 09:15; Stop 02/20/17 at 10:19 ; Status DC Morphine Sulfate 4 mg PRN Q2HR PRN IV PAIN Last administered on 02/20/17 06:05 ; Start 02/15/17 at 09:45; Stop 02/20/17 at 10:19; Status DC Sodium Chloride 1,000 ml @ 75 mls/hr [id number] IV Last administered on 17:42; Start 02/15/17 at 10:00; Stop 02/16/17 at 17:54; Status DC Phytonadione (Vitamin K Ampule) 10 mg 1X ONCE SQ Last administered on 11:35; Start 02/15/17 at 10:30; Stop 02/15/17 at 10:33; Status DC Desmopressin Acetate 20 mcg/ Sodium Chloride 55 ml @ 102 mls/hr 1X ONCE IV Last administered on 02/15/17 11:35; Start 02/15/17 at 11:00; Stop 02/15/17 at 11:32; Status DC Hydroxyurea (Hydrea) 500 mg QMWF PO Last administered on 02/20/17 16:11; Start 02/15/17 at 11:00 Lidocaine/Sodium Bicarbonate (Buffered Lidocaine 1%) 20 ml STK-MED ONCE IJ ; Start 02/15/17 at 11:23; Stop 02/15/17 at 11:24; Status DC Heparin Sodium/ Sodium Chloride 500 ml @ As Directed STK-MED ONCE .ROUTE ; Start 02/15/17 at 11:23; Stop 02/15/17 at 11:24; Status DC Heparin Sodium (Porcine) (Heparin Sodium) 10,000 unit STK-MED ONCE .ROUTE ; Start 02/15/17 at 11:49; Stop 02/15/17 at 11:50; Status DC Lidocaine/Sodium Bicarbonate (Buffered Lidocaine 1%) 3 ml 1X ONCE IJ Last administered on 02/15/17 12:14; Start 02/15/17 at 12:00; Stop 02/15/17 at 12:14 ; Status DC Heparin Sodium/ Sodium Chloride 60 unit 1X ONCE IV Last administered on 12:17; Start 02/15/17 at 12:00; Stop 02/15/17 at 12:14; Status DC Heparin Sodium (Porcine) (Heparin Sodium) 2,500 unit 1X ONCE INT CAT Last administered on 02/15/17 12:17; Start 02/15/17 at 12:00; Stop 02/15/17 at 12:14 ; Status DC Vancomycin HCl 1 each 1X ONCE MC Last administered on 02/16/17 05:00; Start 02/16/17 at 05:00; Stop 02/16/17 at 05:01; Status DC Sodium Chloride 1,000 ml @ 1,000 mls/hr Q1H PRN IV hypotension; Start 02/15/17 at 13:56; Stop 02/15/17 at 19:55; Status DC Sodium Chloride 1,000 ml @ 400 mls/hr Q2H30M PRN IV PATENCY; Start 02/15/17 at 13:56; Stop 02/16/17 at 01:55; Status DC Info (PHARMACY MONITORING -- do not chart) 1 each PRN DAILY PRN MC SEE COMMENTS ; Start 02/15/17 at 14:00; Status UNV Info (PHARMACY MONITORING -- do not chart) 1 each PRN DAILY PRN MC SEE COMMENTS ; Start 02/15/17 at 14:00; Stop 02/17/17 at 11:20; Status DC Albuterol Sulfate (Ventolin Neb Soln) 2.5 mg PRN Q4HRS PRN NEB SHORTNESS OF BREATH; Start 02/15/17 at 15:30; Stop 02/20/17 at 11:14; Status DC Vancomycin HCl 500 mg/Sodium Chloride 100 ml @ 100 mls/hr 1X ONCE IV Last administered on 02/16/17t 17:41; Start 02/16/17 at 16:00; Stop 02/16/17 at 16:59 ; Status DC Sodium Chloride 1,000 ml @ 1,000 mls/hr Q1H PRN IV hypotension; Start 02/16/17 at 13:41; Stop 02/16/17 at 19:40; Status DC Sodium Chloride 1,000 ml @ 400 mls/hr Q2H30M PRN IV PATENCY; Start 02/16/17 at 13:41; Stop 02/17/17 at 01:40; Status DC Info (PHARMACY MONITORING -- do not chart) 1 each PRN DAILY PRN MC SEE COMMENTS ; Start 02/16/17 at 13:45; Stop 02/17/17 at 11:20; Status DC Vancomycin HCl 500 mg/Sodium Chloride 100 ml @ 100 mls/hr 1X ONCE IV ; Start 02/17/17 at 15:00; Stop 02/17/17 at 15:00; Status DC Sodium Chloride 1,000 ml @ 1,000 mls/hr Q1H PRN IV hypotension; Start 02/17/17 at 09:24; Stop 02/17/17 at 15:23; Status DC Sodium Chloride (Normal Saline Flush) 10 ml 1X PRN PRN IV AP catheter pack; Start 02/17/17 at 09:30; Stop 02/18/17 at 09:29; Status DC Sodium Chloride (Normal Saline Flush) 10 ml 1X PRN PRN IV LEATHER SPONGER catheter pack; Start 02/17/17 at 09:30; Stop 02/18/17 at 09:29; Status DC Sodium Chloride 1,000 ml @ 400 mls/hr Q2H30M PRN IV PATENCY; Start 02/17/17 at 09:24; Stop 02/17/17 at 21:23; Status DC Info (PHARMACY MONITORING -- do not chart) 1 each PRN DAILY PRN MC SEE COMMENTS ; Start 02/17/17 at 09:30; Stop 02/20/17 at 10:29; Status DC Albumin Human 100 ml @ 100 mls/hr 1X STAT IV Last administered on 02/17/17 09:49; Start 02/17/17 at 09:35; Stop 02/17/17 at 10:34; Status DC Albumin Human 100 ml @ 100 mls/hr 1X ONCE IV Last administered on 02/17/17 10:46; Start 02/17/17 at 10:45; Stop 02/17/17 at 11:44; Status DC Iohexol (Omnipaque 300 Mg/ml) 75 ml 1X ONCE IV ; Start 02/17/17 at 11:15; Stop 02/17/17 at 11:21; Status DC Info 1 each PRN DAILY PRN MC SEE COMMENTS Last administered on 02/19/17 11:38 ; Start 02/17/17 at 18:00; Stop 02/20/17 at 10:24; Status DC Sodium Chloride 90 meq/Potassium Chloride 50 meq/ Potassium Phosphate 13.6 mmol/ Magnesium Sulfate 10 meq/ Calcium Gluconate 10 meq/ Multivitamins 10 ml/Chromium / Copper/Manganese/ Seleni/Zn 1 ml/ Total Parenteral Nutrition/Amino Acids/ Dextrose/ Fat Emulsion Intravenous 1,512 ml @ 63 mls/hr TPN CONT IV Last administered on 02/18/17 22:02; Start 02/18/17 at 22:00; Stop 02/19/17 at 21:59 ; Status DC Iohexol (Omnipaque 300 Mg/ml) 75 ml 1X ONCE IV Last administered on 02/18/17 09:38; Start 02/18/17 at 09:30; Stop 02/18/17 at 09:31; Status DC Sodium Chloride 1,000 ml @ 1,000 mls/hr Q1H PRN IV hypotension; Start 02/18/17 at 10:09; Stop 02/18/17 at 16:08; Status DC Albumin Human 200 ml @ 200 mls/hr 1X PRN PRN IV Hypotension; Start 02/18/17 at 10:15; Stop 02/18/17 at 16:14; Status DC Sodium Chloride 1,000 ml @ 400 mls/hr Q2H30M PRN IV PATENCY; Start 02/18/17 at 10:09; Stop 02/18/17 at 22:08; Status DC Info (PHARMACY MONITORING -- do not chart) 1 each PRN DAILY PRN MC SEE COMMENTS ; Start 02/18/17 at 10:15; Status UNV Info (PHARMACY MONITORING -- do not chart) 1 each PRN DAILY PRN MC SEE COMMENTS ; Start 02/18/17 at 10:15; Status UNV Potassium Phosphate 13.6 mmol/Sodium Chloride 104.5333 ml @ 52.267 m... 1X ONCE IV Last administered on 02/19/17 09:25; Start 02/19/17 at 09:00; Stop at 10:59; Status DC Sodium Chloride 90 meq/Potassium Chloride 50 meq/ Potassium Phosphate 13.6 mmol/ Magnesium Sulfate 10 meq/ Calcium Gluconate 10 meq/ Multivitamins 10 ml/Chromium / Copper/Manganese/ Seleni/Zn 1 ml/ Total Parenteral Nutrition/Amino Acids/ Dextrose/ Fat Emulsion Intravenous 1,512 ml @ 63 mls/hr TPN CONT IV Last administered on 02/19/17 22:10; Start 02/19/17 at 22:00; Stop 02/20/17 at 10:19 ; Status DC Sodium Chloride 1,000 ml @ 1,000 mls/hr Q1H PRN IV hypotension; Start 02/20/17 at 09:55; Stop 02/20/17 at 10:19; Status DC Sodium Chloride 1,000 ml @ 400 mls/hr Q2H30M PRN IV PATENCY; Start 02/20/17 at 09:55; Stop 02/20/17 at 10:19; Status DC Info (PHARMACY MONITORING -- do not chart) 1 each PRN DAILY PRN MC SEE COMMENTS ; Start 02/20/17 at 10:00; Stop 02/20/17 at 10:04; Status DC Info (PHARMACY MONITORING -- do not chart) 1 each PRN DAILY PRN MC SEE COMMENTS ; Start 02/20/17 at 10:00 Allopurinol (Zyloprim) 300 mg DAILY PO Last administered on 02/21/17 10:40; Start 02/20/17 at 11:00 Aspirin (Ecotrin) 81 mg DAILY PO Last administered on 02/21/17 10:39; Start at 11:00 Carvedilol (Coreg) 12.5 mg BIDWMEALS PO Last administered on 02/21/17 10:39; Start 02/20/17 at 12:00 Paricalcitol (Zemplar) 1 mcg DAILY PO Last administered on 02/21/17 10:40; Start 02/20/17 at 11:00 Sevelamer Carbonate (Renvela) 1,600 mg TIDWMEALS PO Last administered on 10:41; Start 02/20/17 at 12:00 Sodium Bicarbonate (Sodium Bicarbonate) 850 mg BID PO Last administered on 02/21 10:41; Start 02/20/17 at 11:00 Non-Formulary Medication 2 puff PRN Q4HRS PRN INH SHORTNESS OF BREATH; Start at 10:30; Stop 02/20/17 at 11:17; Status DC Non-Formulary Medication 1 puff Q12HR IH ; Start 02/20/17 at 21:00; Stop at 21:00; Status DC Pantoprazole Sodium (Protonix) 40 mg DAILYAC PO Last administered on 02/21/17 10:38; Start 02/20/17 at 11:30 Insulin Detemir (Levemir) 20 units QHS SQ Last administered on 02/20/17 21:23 ; Start 02/20/17 at 21:00 Amlodipine Besylate (Norvasc) 10 mg DAILY PO Last administered on 02/21/17 10: 40; Start 02/20/17 at 11:00 Albuterol Sulfate (Ventolin Neb Soln) 2.5 mg PRN Q4HRS PRN NEB SHORTNESS OF BREATH; Start 02/20/17 at 11:15 Albuterol Sulfate (Ventolin Neb Soln) 2.5 mg Q6HRS NEB Last administered on 07:41; Start 02/20/17 at 12:00 Budesonide (Pulmicort) 0.5 mg RTBID NEB Last administered on 02/21/17 07:41; Start 02/20/17 at 20:00 Acetaminophen/ Hydrocodone Bitart (Lortab 5/325) 1 tab PRN Q6HRS PRN PO PAIN Last administered on 02/20/17 16:03; Start 02/20/17 at 15:15 Heparin Sodium (Porcine) (Heparin Sodium) 10,000 unit STK-MED ONCE .ROUTE ; Start 02/21/17 at 09:11; Stop 02/21/17 at 09:12; Status DC Lidocaine/ Epinephrine (Xylocaine 1%-Epi 1:100,000) 20 ml STK-MED ONCE .ROUTE ; Start 02/21/17 at 09:11; Stop 02/21/17 at 09:12; Status DC Heparin Sodium/ Sodium Chloride 500 ml @ As Directed STK-MED ONCE .ROUTE ; Start 02/21/17 at 09:11; Stop 02/21/17 at 09:12; Status DC Cefazolin Sodium 50 ml @ As Directed STK-MED ONCE IV ; Start 02/21/17 at 09:30; Stop 02/21/17 at 09:31; Status DC Fentanyl Citrate (Fentanyl 2ml Vial) 100 mcg STK-MED ONCE .ROUTE ; Start at 09:31; Stop 02/21/17 at 09:32; Status DC Midazolam HCl (Versed) 2 mg STK-MED ONCE .ROUTE ; Start 02/21/17 at 09:31; Stop 02/21/17 at 09:32; Status DC Heparin Sodium/ Sodium Chloride 1,000 unit 1X ONCE IART Last administered on 10:06; Start 02/21/17 at 10:00; Stop 02/21/17 at 10:01; Status DC Midazolam HCl (Versed) 2 mg 1X ONCE IV Last administered on 02/21/17 10:07; Start 02/21/17 at 10:00; Stop 02/21/17 at 10:01; Status DC Fentanyl Citrate (Fentanyl 2ml Vial) 100 mcg 1X ONCE IV Last administered on 10:07; Start 02/21/17 at 10:00; Stop 02/21/17 at 10:01; Status DC Lidocaine/ Epinephrine (Xylocaine 1%-Epi 1:100,000) 20 ml 1X ONCE IJ Last administered on 02/21/17 10:06; Start 02/21/17 at 10:00; Stop 02/21/17 at 10:01 ; Status DC Cefazolin Sodium 50 ml @ 100 mls/hr 1X ONCE IV Last administered on 10:08; Start 02/21/17 at 10:00; Stop 02/21/17 at 10:29; Status DC Heparin Sodium (Porcine) (Heparin Sodium) 2,600 unit 1X ONCE INT CAT Last administered on 02/21/17 10:06; Start 02/21/17 at 10:00; Stop 02/21/17 at 10:01 ; Status DC Active Scripts Active Reported Lantus Solostar (Insulin Glargine,Hum.rec.anlog) 100 Unit/1 Ml Insuln.pen 22 Unit SQ QHS Droxia (Hydroxyurea) 200 Mg Capsule 200 Mg PO DAILY Feosol (Ferrous Sulfate) 325 Mg Tablet 325 Mg PO DAILY Coreg (Carvedilol) 12.5 Mg Tablet 1 Tab PO BID Bumetanide 2 Mg Tablet 2 Tab PO BID Aspir 81 (Aspirin) 81 Mg Tablet.dr 1 Tab PO DAILY Allopurinol 300 Mg Tablet 1 Tab PO DAILY Advair 250-50 Diskus (Fluticasone/Salmeterol) 1 Each Disk.w.dev 1 Puff IH Q12HR Zetia (Ezetimibe) 10 Mg Tablet 0.5 Tab PO DAILY Zemplar (Paricalcitol) 1 Mcg Capsule 1 Cap PO DAILY Sodium Bicarbonate 650 Mg Tablet 850 Mg PO BID Sensipar (Cinacalcet Hcl) 30 Mg Tablet 30 Mg PO QODAY Renvela (Sevelamer Carbonate) 800 Mg Tablet 2 Tab PO TID Proair Hfa Inhaler (Albuterol Sulfate) 8.5 Gm Hfa.aer.ad 2 Puff INH PRN Q4HRS PRN Omeprazole 40 Mg Capsule.dr 1 Cap PO DAILY Percocet 5-325 Mg Tablet (Oxycodone/Acetaminophen) 1 Each Tablet 1-2 Tab PO PRN Q6HRS PRN Novolog Flexpen (Insulin Aspart) 100 Unit/1 Ml Insuln.pen 15 Unit SQ DAILY Novolog Flexpen (Insulin Aspart) 100 Unit/1 Ml Insuln.pen 12 Unit SQ BIDACBL Norvasc (Amlodipine Besylate) 10 Mg Tablet 10 Mg PO DAILY Miralax (Polyethylene Glycol 3350) 17 Gm Powd.pack 1 Packet PO DAILY Lipitor (Atorvastatin Calcium) 40 Mg Tablet 1 Tab PO DAILY Lidocaine 1 Each Adh..patch 1 Each TP DAILY Vitals/I & O Vital Sign - Last 24 Hours 02/20/17 02/20/17 02/20/17 02/20/17 13:27 15:09 16:03 16:03 Temp 97.9 97.9 Pulse 98 98 Resp 18 B/P (MAP) 145/83 (103) 145/83 Pulse Ox 97 99 O2 Delivery Room Air Room Air Room Air 02/20/17 02/20/17 02/20/17 02/20/17 16:55 18:59 19:01 19:25 Temp 98.5 98.5 Pulse 88 Resp 20 B/P (MAP) 134/76 (95) Pulse Ox 95 95 95 O2 Delivery Room Air Room Air Room Air Room Air 02/20/17 02/20/17 02/21/17 02/21/17 20:00 23:30 03:30 07:00 Temp 97.9 98.4 97.9 97.9 98.4 97.9 Pulse 99 101 102 Resp 20 20 16 B/P (MAP) 152/92 (112) 149/87 (107) 158/94 (115) Pulse Ox 97 97 98 O2 Delivery Room Air Room Air Room Air Room Air 02/21/17 02/21/17 02/21/17 02/21/17 07:41 08:00 10:07 10:15 Pulse 105 Resp 21 24 Pulse Ox 94 94 O2 Delivery Room Air Room Air Nasal Cannula Nasal Cannula O2 Flow Rate 2.0 2.0 02/21/17 02/21/17 02/21/17 02/21/17 10:30 10:39 10:40 10:45 Temp 97.5 97.5 Pulse 108 118 118 115 Resp 18 B/P (MAP) 166/95 (118) 166/95 166/95 161/101 (121) Pulse Ox 97 O2 Delivery Room Air 02/21/17 02/21/17 02/21/17 02/21/17 10:46 11:00 11:15 11:45 Temp Pulse 112 113 110 Resp B/P (MAP) 163/109 (127) 166/105 (125) 160/102 (121) Pulse Ox 96 O2 Delivery Room Air 02/21/17 12:15 Pulse 104 B/P (MAP) 161/92 (115) Nutrition Consultation Dietary Evaluation: Recommendations by RD: Increase Calorie Intake Comments: TF cx, TPN d/c diet 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
--- NOTE | 2017-02-21 13:01 | PDOC ---
PULMONARY PROGRESS NOTES Subjective off 02, no sob better, no cough, no pain Vitals Vital Signs Date Time Temp Pulse Resp B/P (MAP) Pulse Ox O2 Delivery O2 Flow Rate FiO2 02/21/17 12:51 Room Air 02/21/17 12:15 104 161/92 (115) 02/21/17 11:00 02/21/17 10:15 2.0 ROS: No Nausea, No Chest Pain, No Abdominal Pain, No Increase Cough General: Alert HEENT: Other (nc at perrl nose throat clear) Lungs: Clear Cardiovascular: S1, S2 Abdomen: Soft, Other (tender) Neuro Exam: Alert, Oriented Extremities: No Edema Skin: Warm Labs Laboratory Tests Test 02/20/17 05:55 02/20/17 08:01 02/20/17 14:15 02/20/17 17:37 White Blood Count 67.1 x10^3/uL (4.0-11.0) Red Blood Count 2.97 x10^6/uL (3.50-5.40) Hemoglobin 8.5 g/dL (12.0-15.5) Hematocrit 26.1 % (36.0-47.0) Mean Corpuscular Volume 88 fL (79-100) Mean Corpuscular Hemoglobin 29 pg (25-35) Mean Corpuscular Hemoglobin Concent 33 g/dL (31-37) Red Cell Distribution Width 17.6 % (11.5-14.5) Platelet Count 301 x10^3/uL (140-400) Neutrophils (%) (Auto) 97 % (31-73) Lymphocytes (%) (Auto) 1 % (24-48) Monocytes (%) (Auto) 1 % (0-9) Eosinophils (%) (Auto) 1 % (0-3) Basophils (%) (Auto) 0 % (0-3) Neutrophils # (Auto) 65.1 x10^3uL (1.8-7.7) Lymphocytes # (Auto) 0.7 x10^3/uL (1.0-4.8) Monocytes # (Auto) 0.7 x10^3/uL (0.0-1.1) Eosinophils # (Auto) 0.4 x10^3/uL (0.0-0.7) Basophils # (Auto) 0.2 x10^3/uL (0.0-0.2) Sodium Level 138 mmol/L (136-145) Potassium Level 4.2 mmol/L (3.5-5.1) Chloride Level 100 mmol/L (98-107) Carbon Dioxide Level 32 mmol/L (21-32) Anion Gap 6 (6-14) Blood Urea Nitrogen 28 mg/dL (7-20) Creatinine 3.0 mg/dL (0.6-1.0) Estimated GFR (Cockcroft-Gault) 18.7 Glucose Level 476 mg/dL (70-99) Calcium Level 9.1 mg/dL (8.5-10.1) Phosphorus Level 2.9 mg/dL (2.6-4.7) Magnesium Level 2.1 mg/dL (1.8-2.4) Hepatitis B Core Total Antibody Negative (Negative) Glucose (Fingerstick) 446 mg/dL (70-99) 301 mg/dL (70-99) 308 mg/dL (70-99) Test 02/20/17 20:57 02/21/17 03:25 02/21/17 07:33 02/21/17 11:51 Glucose (Fingerstick) 308 mg/dL (70-99) 177 mg/dL (70-99) 172 mg/dL (70-99) White Blood Count 64.6 x10^3/uL (4.0-11.0) Red Blood Count 3.09 x10^6/uL (3.50-5.40) Hemoglobin 8.8 g/dL (12.0-15.5) Hematocrit 27.6 % (36.0-47.0) Mean Corpuscular Volume 89 fL (79-100) Mean Corpuscular Hemoglobin 28 pg (25-35) Mean Corpuscular Hemoglobin Concent 32 g/dL (31-37) Red Cell Distribution Width 17.4 % (11.5-14.5) Platelet Count 255 x10^3/uL (140-400) Neutrophils (%) (Auto) 96 % (31-73) Lymphocytes (%) (Auto) 1 % (24-48) Monocytes (%) (Auto) 1 % (0-9) Eosinophils (%) (Auto) 1 % (0-3) Basophils (%) (Auto) 1 % (0-3) Neutrophils # (Auto) 62.2 x10^3uL (1.8-7.7) Lymphocytes # (Auto) 0.7 x10^3/uL (1.0-4.8) Monocytes # (Auto) 0.7 x10^3/uL (0.0-1.1) Eosinophils # (Auto) 0.7 x10^3/uL (0.0-0.7) Basophils # (Auto) 0.4 x10^3/uL (0.0-0.2) Prothrombin Time 13.4 SEC (11.7-14.0) Prothromb Time International Ratio 1.1 (0.8-1.1) Activated Partial Thromboplast Time 35 SEC (24-38) Sodium Level 138 mmol/L (136-145) Potassium Level 3.8 mmol/L (3.5-5.1) Chloride Level 100 mmol/L (98-107) Carbon Dioxide Level 31 mmol/L (21-32) Anion Gap 7 (6-14) Blood Urea Nitrogen 21 mg/dL (7-20) Creatinine 2.4 mg/dL (0.6-1.0) Estimated GFR (Cockcroft-Gault) 24.1 Glucose Level 198 mg/dL (70-99) Calcium Level 9.5 mg/dL (8.5-10.1) Phosphorus Level 2.3 mg/dL (2.6-4.7) Magnesium Level 2.0 mg/dL (1.8-2.4) Total Bilirubin 1.2 mg/dL (0.2-1.0) Direct Bilirubin 0.4 mg/dL (0.0-0.2) Aspartate Amino Transf (AST/SGOT) 43 U/L (15-37) Alanine Aminotransferase (ALT/SGPT) 10 U/L (14-59) Alkaline Phosphatase 183 U/L (46-116) Total Protein 4.9 g/dL (6.4-8.2) Albumin 2.1 g/dL (3.4-5.0) Laboratory Tests Test 02/20/17 14:15 02/20/17 17:37 02/20/17 20:57 02/21/17 03:25 Glucose (Fingerstick) 301 mg/dL (70-99) 308 mg/dL (70-99) 308 mg/dL (70-99) White Blood Count 64.6 x10^3/uL (4.0-11.0) Red Blood Count 3.09 x10^6/uL (3.50-5.40) Hemoglobin 8.8 g/dL (12.0-15.5) Hematocrit 27.6 % (36.0-47.0) Mean Corpuscular Volume 89 fL (79-100) Mean Corpuscular Hemoglobin 28 pg (25-35) Mean Corpuscular Hemoglobin Concent 32 g/dL (31-37) Red Cell Distribution Width 17.4 % (11.5-14.5) Platelet Count 255 x10^3/uL (140-400) Neutrophils (%) (Auto) 96 % (31-73) Lymphocytes (%) (Auto) 1 % (24-48) Monocytes (%) (Auto) 1 % (0-9) Eosinophils (%) (Auto) 1 % (0-3) Basophils (%) (Auto) 1 % (0-3) Neutrophils # (Auto) 62.2 x10^3uL (1.8-7.7) Lymphocytes # (Auto) 0.7 x10^3/uL (1.0-4.8) Monocytes # (Auto) 0.7 x10^3/uL (0.0-1.1) Eosinophils # (Auto) 0.7 x10^3/uL (0.0-0.7) Basophils # (Auto) 0.4 x10^3/uL (0.0-0.2) Prothrombin Time 13.4 SEC (11.7-14.0) Prothromb Time International Ratio 1.1 (0.8-1.1) Activated Partial Thromboplast Time 35 SEC (24-38) Sodium Level 138 mmol/L (136-145) Potassium Level 3.8 mmol/L (3.5-5.1) Chloride Level 100 mmol/L (98-107) Carbon Dioxide Level 31 mmol/L (21-32) Anion Gap 7 (6-14) Blood Urea Nitrogen 21 mg/dL (7-20) Creatinine 2.4 mg/dL (0.6-1.0) Estimated GFR (Cockcroft-Gault) 24.1 Glucose Level 198 mg/dL (70-99) Calcium Level 9.5 mg/dL (8.5-10.1) Phosphorus Level 2.3 mg/dL (2.6-4.7) Magnesium Level 2.0 mg/dL (1.8-2.4) Total Bilirubin 1.2 mg/dL (0.2-1.0) Direct Bilirubin 0.4 mg/dL (0.0-0.2) Aspartate Amino Transf (AST/SGOT) 43 U/L (15-37) Alanine Aminotransferase (ALT/SGPT) 10 U/L (14-59) Alkaline Phosphatase 183 U/L (46-116) Total Protein 4.9 g/dL (6.4-8.2) Albumin 2.1 g/dL (3.4-5.0) Test 02/21/17 07:33 02/21/17 11:51 Glucose (Fingerstick) 177 mg/dL (70-99) 172 mg/dL (70-99) Medications Active Scripts Medications Dose Route/Sig Max Daily Dose Days Date Category Lantus Solostar (Insulin Glargine,Hum.rec.anlog) 100 Unit/1 Ml Insuln.pen 22 Unit SQ QHS 02/15/17 Reported Droxia (Hydroxyurea) 200 Mg Capsule 200 Mg PO DAILY 02/15/17 Reported Feosol (Ferrous Sulfate) 325 Mg Tablet 325 Mg PO DAILY 02/15/17 Reported Coreg (Carvedilol) 12.5 Mg Tablet 1 Tab PO BID 02/15/17 Reported Bumetanide 2 Mg Tablet 2 Tab PO BID 02/15/17 Reported Aspir 81 (Aspirin) 81 Mg Tablet.dr 1 Tab PO DAILY 02/15/17 Reported Allopurinol 300 Mg Tablet 1 Tab PO DAILY 02/15/17 Reported Advair 250-50 Diskus (Fluticasone/Salmeterol) 1 Each Disk.w.dev 1 Puff IH Q12HR 02/15/17 Reported Zetia (Ezetimibe) 10 Mg Tablet 0.5 Tab PO DAILY 02/15/17 Reported Zemplar (Paricalcitol) 1 Mcg Capsule 1 Cap PO DAILY 02/15/17 Reported Sodium Bicarbonate 650 Mg Tablet 850 Mg PO BID 02/15/17 Reported Sensipar (Cinacalcet Hcl) 30 Mg Tablet 30 Mg PO QODAY 02/15/17 Reported Renvela (Sevelamer Carbonate) 800 Mg Tablet 2 Tab PO TID 02/15/17 Reported Proair Hfa Inhaler (Albuterol Sulfate) 8.5 Gm Hfa.aer.ad 2 Puff INH PRN Q4HRS PRN 02/15/17 Reported Omeprazole 40 Mg Capsule.dr 1 Cap PO DAILY 02/15/17 Reported Percocet 5-325 Mg Tablet (Oxycodone/Acetaminophen) 1 Each Tablet 1-2 Tab PO PRN Q6HRS PRN 02/15/17 Reported Novolog Flexpen (Insulin Aspart) 100 Unit/1 Ml Insuln.pen 15 Unit SQ DAILY 02/15/17 Reported Novolog Flexpen (Insulin Aspart) 100 Unit/1 Ml Insuln.pen 12 Unit SQ BIDACBL 02/15/17 Reported Norvasc (Amlodipine Besylate) 10 Mg Tablet 10 Mg PO DAILY 02/15/17 Reported Miralax (Polyethylene Glycol 3350) 17 Gm Powd.pack 1 Packet PO DAILY 02/15/17 Reported Lipitor (Atorvastatin Calcium) 40 Mg Tablet 1 Tab PO DAILY 02/15/17 Reported Lidocaine 1 Each Adh..patch 1 Each TP DAILY 02/15/17 Reported Impression . 1. Abnormal CT of the abdomen revealing some basilar opacities, suspect mostly atelectasis. Intraabdominal hematoma.?infected/?splenic abscess,? hepatic abscess 2. Asthma. 3. Sepsis present upon admission.resolved 5. Leukocytosis. 6. Lactic acidosis. 7. Chronic kidney disease, status post recent catheter for dialysis. 8. Acute toxic metabolic encephalopathy. 9. Diabetes. 10. Polycythemia. Plan . 02 titration PRN NEBS 1. RESP STATUS COMPENSATED 2. Antibiotics per ID. 3. Follow Nephrology input. 4. Follow hem input 5. Intraabdominal hematoma per PCP ODILIA BROWN MD Feb 21, 2017 13:01
--- NOTE | 2017-02-21 13:14 | PDOC ---
SURGICAL PROGRESS NOTE Subjective Pt without new c/o, abd pain improved Vital Signs Vital Signs Date Time Temp Pulse Resp B/P (MAP) Pulse Ox O2 Delivery O2 Flow Rate FiO2 02/21/17 12:51 Room Air 02/21/17 12:15 104 161/92 (115) 02/21/17 11:00 02/21/17 10:15 2.0 General: Alert, Cooperative, No acute distress Abdomen: Soft, No tenderness Labs Laboratory Tests Test 02/20/17 05:55 02/20/17 08:01 02/20/17 14:15 02/20/17 17:37 White Blood Count 67.1 x10^3/uL (4.0-11.0) Red Blood Count 2.97 x10^6/uL (3.50-5.40) Hemoglobin 8.5 g/dL (12.0-15.5) Hematocrit 26.1 % (36.0-47.0) Mean Corpuscular Volume 88 fL (79-100) Mean Corpuscular Hemoglobin 29 pg (25-35) Mean Corpuscular Hemoglobin Concent 33 g/dL (31-37) Red Cell Distribution Width 17.6 % (11.5-14.5) Platelet Count 301 x10^3/uL (140-400) Neutrophils (%) (Auto) 97 % (31-73) Lymphocytes (%) (Auto) 1 % (24-48) Monocytes (%) (Auto) 1 % (0-9) Eosinophils (%) (Auto) 1 % (0-3) Basophils (%) (Auto) 0 % (0-3) Neutrophils # (Auto) 65.1 x10^3uL (1.8-7.7) Lymphocytes # (Auto) 0.7 x10^3/uL (1.0-4.8) Monocytes # (Auto) 0.7 x10^3/uL (0.0-1.1) Eosinophils # (Auto) 0.4 x10^3/uL (0.0-0.7) Basophils # (Auto) 0.2 x10^3/uL (0.0-0.2) Sodium Level 138 mmol/L (136-145) Potassium Level 4.2 mmol/L (3.5-5.1) Chloride Level 100 mmol/L (98-107) Carbon Dioxide Level 32 mmol/L (21-32) Anion Gap 6 (6-14) Blood Urea Nitrogen 28 mg/dL (7-20) Creatinine 3.0 mg/dL (0.6-1.0) Estimated GFR (Cockcroft-Gault) 18.7 Glucose Level 476 mg/dL (70-99) Calcium Level 9.1 mg/dL (8.5-10.1) Phosphorus Level 2.9 mg/dL (2.6-4.7) Magnesium Level 2.1 mg/dL (1.8-2.4) Hepatitis B Core Total Antibody Negative (Negative) Glucose (Fingerstick) 446 mg/dL (70-99) 301 mg/dL (70-99) 308 mg/dL (70-99) Test 02/20/17 20:57 02/21/17 03:25 02/21/17 07:33 02/21/17 11:51 Glucose (Fingerstick) 308 mg/dL (70-99) 177 mg/dL (70-99) 172 mg/dL (70-99) White Blood Count 64.6 x10^3/uL (4.0-11.0) Red Blood Count 3.09 x10^6/uL (3.50-5.40) Hemoglobin 8.8 g/dL (12.0-15.5) Hematocrit 27.6 % (36.0-47.0) Mean Corpuscular Volume 89 fL (79-100) Mean Corpuscular Hemoglobin 28 pg (25-35) Mean Corpuscular Hemoglobin Concent 32 g/dL (31-37) Red Cell Distribution Width 17.4 % (11.5-14.5) Platelet Count 255 x10^3/uL (140-400) Neutrophils (%) (Auto) 96 % (31-73) Lymphocytes (%) (Auto) 1 % (24-48) Monocytes (%) (Auto) 1 % (0-9) Eosinophils (%) (Auto) 1 % (0-3) Basophils (%) (Auto) 1 % (0-3) Neutrophils # (Auto) 62.2 x10^3uL (1.8-7.7) Lymphocytes # (Auto) 0.7 x10^3/uL (1.0-4.8) Monocytes # (Auto) 0.7 x10^3/uL (0.0-1.1) Eosinophils # (Auto) 0.7 x10^3/uL (0.0-0.7) Basophils # (Auto) 0.4 x10^3/uL (0.0-0.2) Prothrombin Time 13.4 SEC (11.7-14.0) Prothromb Time International Ratio 1.1 (0.8-1.1) Activated Partial Thromboplast Time 35 SEC (24-38) Sodium Level 138 mmol/L (136-145) Potassium Level 3.8 mmol/L (3.5-5.1) Chloride Level 100 mmol/L (98-107) Carbon Dioxide Level 31 mmol/L (21-32) Anion Gap 7 (6-14) Blood Urea Nitrogen 21 mg/dL (7-20) Creatinine 2.4 mg/dL (0.6-1.0) Estimated GFR (Cockcroft-Gault) 24.1 Glucose Level 198 mg/dL (70-99) Calcium Level 9.5 mg/dL (8.5-10.1) Phosphorus Level 2.3 mg/dL (2.6-4.7) Magnesium Level 2.0 mg/dL (1.8-2.4) Total Bilirubin 1.2 mg/dL (0.2-1.0) Direct Bilirubin 0.4 mg/dL (0.0-0.2) Aspartate Amino Transf (AST/SGOT) 43 U/L (15-37) Alanine Aminotransferase (ALT/SGPT) 10 U/L (14-59) Alkaline Phosphatase 183 U/L (46-116) Total Protein 4.9 g/dL (6.4-8.2) Albumin 2.1 g/dL (3.4-5.0) Laboratory Tests Test 02/20/17 14:15 02/20/17 17:37 02/20/17 20:57 02/21/17 03:25 Glucose (Fingerstick) 301 mg/dL (70-99) 308 mg/dL (70-99) 308 mg/dL (70-99) White Blood Count 64.6 x10^3/uL (4.0-11.0) Red Blood Count 3.09 x10^6/uL (3.50-5.40) Hemoglobin 8.8 g/dL (12.0-15.5) Hematocrit 27.6 % (36.0-47.0) Mean Corpuscular Volume 89 fL (79-100) Mean Corpuscular Hemoglobin 28 pg (25-35) Mean Corpuscular Hemoglobin Concent 32 g/dL (31-37) Red Cell Distribution Width 17.4 % (11.5-14.5) Platelet Count 255 x10^3/uL (140-400) Neutrophils (%) (Auto) 96 % (31-73) Lymphocytes (%) (Auto) 1 % (24-48) Monocytes (%) (Auto) 1 % (0-9) Eosinophils (%) (Auto) 1 % (0-3) Basophils (%) (Auto) 1 % (0-3) Neutrophils # (Auto) 62.2 x10^3uL (1.8-7.7) Lymphocytes # (Auto) 0.7 x10^3/uL (1.0-4.8) Monocytes # (Auto) 0.7 x10^3/uL (0.0-1.1) Eosinophils # (Auto) 0.7 x10^3/uL (0.0-0.7) Basophils # (Auto) 0.4 x10^3/uL (0.0-0.2) Prothrombin Time 13.4 SEC (11.7-14.0) Prothromb Time International Ratio 1.1 (0.8-1.1) Activated Partial Thromboplast Time 35 SEC (24-38) Sodium Level 138 mmol/L (136-145) Potassium Level 3.8 mmol/L (3.5-5.1) Chloride Level 100 mmol/L (98-107) Carbon Dioxide Level 31 mmol/L (21-32) Anion Gap 7 (6-14) Blood Urea Nitrogen 21 mg/dL (7-20) Creatinine 2.4 mg/dL (0.6-1.0) Estimated GFR (Cockcroft-Gault) 24.1 Glucose Level 198 mg/dL (70-99) Calcium Level 9.5 mg/dL (8.5-10.1) Phosphorus Level 2.3 mg/dL (2.6-4.7) Magnesium Level 2.0 mg/dL (1.8-2.4) Total Bilirubin 1.2 mg/dL (0.2-1.0) Direct Bilirubin 0.4 mg/dL (0.0-0.2) Aspartate Amino Transf (AST/SGOT) 43 U/L (15-37) Alanine Aminotransferase (ALT/SGPT) 10 U/L (14-59) Alkaline Phosphatase 183 U/L (46-116) Total Protein 4.9 g/dL (6.4-8.2) Albumin 2.1 g/dL (3.4-5.0) Test 02/21/17 07:33 02/21/17 11:51 Glucose (Fingerstick) 177 mg/dL (70-99) 172 mg/dL (70-99) Problem List Problems Medical Problems: (1) Anemia Status: Acute (2) Coagulopathy Status: Acute (3) Congestive heart failure Status: Acute (4) End stage renal disease Status: Acute (5) Hypoglycemia Status: Acute (6) Hypotension Status: Acute (7) Myelodysplastic syndrome Status: Acute Assessment/Plan abd hematoma improving with supportive care Problems: FREDY DENNIS MD Feb 21, 2017 13:14
--- NOTE | 2017-02-21 13:29 | PDOC ---
PROGRESS NOTES Subjective Subjective c/c - f/u of Secondary myelofibrosis ROS - abd pain improving Objective Objective Vital Signs Date Time Temp Pulse Resp B/P (MAP) Pulse Ox O2 Delivery O2 Flow Rate FiO2 02/21/17 13:15 101 145/84 (104) 02/21/17 12:51 Room Air 02/21/17 11:00 02/21/17 10:15 2.0 Physical Exam Heart: Normal S1, Normal S2 General: Alert, Oriented X3 Lungs: Clear to auscultation Neuro: Normal speech Psych/Mental Status: Mental status NL Assessment Assessment Problems Medical Problems: (1) Anemia Status: Acute (2) Coagulopathy Status: Acute (3) Congestive heart failure Status: Acute (4) End stage renal disease Status: Acute (5) Hypoglycemia Status: Acute (6) Hypotension Status: Acute (7) Myelodysplastic syndrome Status: Acute IMPRESSION AND PLAN: 1. 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 She was off hydroxyurea for almost 2-3 weeks prior to this admission because of renal failure. Her blood counts are significantly worse with worsening WBC and worsening platelets. Hence, I resumed hydroxyurea 02/15/17. Elevated platelet counts in patients with essential thrombocythemia can also increase the risk of bleeding. Hence, it is essential to decrease the platelet counts with the help of hydroxyurea. I will continue to monitor WBC, hemoglobin, and platelet counts closely while she is on hydroxyurea. 2. Hematoma, intraabdominal, due to recent peritoneal dialysis catheter placement. Her INR is elevated at 1.8. She already received 3 units of FFP and s/p 1 dose of vitamin K 02/15/17. Her creatinine is 6.6 with BUN of 65. Patients with uncontrolled myeloproliferative disorder and the patients with uremia can have deficiency of von Willebrand factor. s/p 20 mcg of DDAVP 02/15/17 for management of the underlying hematoma. 3. Sepsis. Appreciate ID consultation. 4. Leukocytosis due to myelofibrosis. Worse at 107 on 02/17/17. Continue hydrea. Plan peripheral smear review by pathology. Improved to 64.6 5. Thrombocytosis due to myelofibrosis. Plan hydroxyurea as described above. Plt improved to 255. 6. Anemia - s/p transfusion, Hb 8.8. 7. Coagulopathy - s/p FFP/Vit K/DDAVP Comment Review of Relevant I have reviewed the following items laure (where applicable) has been applied. Labs Laboratory Tests Test 02/20/17 05:55 02/20/17 08:01 02/20/17 14:15 02/20/17 17:37 White Blood Count 67.1 x10^3/uL (4.0-11.0) Red Blood Count 2.97 x10^6/uL (3.50-5.40) Hemoglobin 8.5 g/dL (12.0-15.5) Hematocrit 26.1 % (36.0-47.0) Mean Corpuscular Volume 88 fL (79-100) Mean Corpuscular Hemoglobin 29 pg (25-35) Mean Corpuscular Hemoglobin Concent 33 g/dL (31-37) Red Cell Distribution Width 17.6 % (11.5-14.5) Platelet Count 301 x10^3/uL (140-400) Neutrophils (%) (Auto) 97 % (31-73) Lymphocytes (%) (Auto) 1 % (24-48) Monocytes (%) (Auto) 1 % (0-9) Eosinophils (%) (Auto) 1 % (0-3) Basophils (%) (Auto) 0 % (0-3) Neutrophils # (Auto) 65.1 x10^3uL (1.8-7.7) Lymphocytes # (Auto) 0.7 x10^3/uL (1.0-4.8) Monocytes # (Auto) 0.7 x10^3/uL (0.0-1.1) Eosinophils # (Auto) 0.4 x10^3/uL (0.0-0.7) Basophils # (Auto) 0.2 x10^3/uL (0.0-0.2) Sodium Level 138 mmol/L (136-145) Potassium Level 4.2 mmol/L (3.5-5.1) Chloride Level 100 mmol/L (98-107) Carbon Dioxide Level 32 mmol/L (21-32) Anion Gap 6 (6-14) Blood Urea Nitrogen 28 mg/dL (7-20) Creatinine 3.0 mg/dL (0.6-1.0) Estimated GFR (Cockcroft-Gault) 18.7 Glucose Level 476 mg/dL (70-99) Calcium Level 9.1 mg/dL (8.5-10.1) Phosphorus Level 2.9 mg/dL (2.6-4.7) Magnesium Level 2.1 mg/dL (1.8-2.4) Hepatitis B Core Total Antibody Negative (Negative) Glucose (Fingerstick) 446 mg/dL (70-99) 301 mg/dL (70-99) 308 mg/dL (70-99) Test 02/20/17 20:57 02/21/17 03:25 02/21/17 07:33 02/21/17 11:51 Glucose (Fingerstick) 308 mg/dL (70-99) 177 mg/dL (70-99) 172 mg/dL (70-99) White Blood Count 64.6 x10^3/uL (4.0-11.0) Red Blood Count 3.09 x10^6/uL (3.50-5.40) Hemoglobin 8.8 g/dL (12.0-15.5) Hematocrit 27.6 % (36.0-47.0) Mean Corpuscular Volume 89 fL (79-100) Mean Corpuscular Hemoglobin 28 pg (25-35) Mean Corpuscular Hemoglobin Concent 32 g/dL (31-37) Red Cell Distribution Width 17.4 % (11.5-14.5) Platelet Count 255 x10^3/uL (140-400) Neutrophils (%) (Auto) 96 % (31-73) Lymphocytes (%) (Auto) 1 % (24-48) Monocytes (%) (Auto) 1 % (0-9) Eosinophils (%) (Auto) 1 % (0-3) Basophils (%) (Auto) 1 % (0-3) Neutrophils # (Auto) 62.2 x10^3uL (1.8-7.7) Lymphocytes # (Auto) 0.7 x10^3/uL (1.0-4.8) Monocytes # (Auto) 0.7 x10^3/uL (0.0-1.1) Eosinophils # (Auto) 0.7 x10^3/uL (0.0-0.7) Basophils # (Auto) 0.4 x10^3/uL (0.0-0.2) Prothrombin Time 13.4 SEC (11.7-14.0) Prothromb Time International Ratio 1.1 (0.8-1.1) Activated Partial Thromboplast Time 35 SEC (24-38) Sodium Level 138 mmol/L (136-145) Potassium Level 3.8 mmol/L (3.5-5.1) Chloride Level 100 mmol/L (98-107) Carbon Dioxide Level 31 mmol/L (21-32) Anion Gap 7 (6-14) Blood Urea Nitrogen 21 mg/dL (7-20) Creatinine 2.4 mg/dL (0.6-1.0) Estimated GFR (Cockcroft-Gault) 24.1 Glucose Level 198 mg/dL (70-99) Calcium Level 9.5 mg/dL (8.5-10.1) Phosphorus Level 2.3 mg/dL (2.6-4.7) Magnesium Level 2.0 mg/dL (1.8-2.4) Total Bilirubin 1.2 mg/dL (0.2-1.0) Direct Bilirubin 0.4 mg/dL (0.0-0.2) Aspartate Amino Transf (AST/SGOT) 43 U/L (15-37) Alanine Aminotransferase (ALT/SGPT) 10 U/L (14-59) Alkaline Phosphatase 183 U/L (46-116) Total Protein 4.9 g/dL (6.4-8.2) Albumin 2.1 g/dL (3.4-5.0) Laboratory Tests Test 02/20/17 14:15 02/20/17 17:37 02/20/17 20:57 02/21/17 03:25 Glucose (Fingerstick) 301 mg/dL (70-99) 308 mg/dL (70-99) 308 mg/dL (70-99) White Blood Count 64.6 x10^3/uL (4.0-11.0) Red Blood Count 3.09 x10^6/uL (3.50-5.40) Hemoglobin 8.8 g/dL (12.0-15.5) Hematocrit 27.6 % (36.0-47.0) Mean Corpuscular Volume 89 fL (79-100) Mean Corpuscular Hemoglobin 28 pg (25-35) Mean Corpuscular Hemoglobin Concent 32 g/dL (31-37) Red Cell Distribution Width 17.4 % (11.5-14.5) Platelet Count 255 x10^3/uL (140-400) Neutrophils (%) (Auto) 96 % (31-73) Lymphocytes (%) (Auto) 1 % (24-48) Monocytes (%) (Auto) 1 % (0-9) Eosinophils (%) (Auto) 1 % (0-3) Basophils (%) (Auto) 1 % (0-3) Neutrophils # (Auto) 62.2 x10^3uL (1.8-7.7) Lymphocytes # (Auto) 0.7 x10^3/uL (1.0-4.8) Monocytes # (Auto) 0.7 x10^3/uL (0.0-1.1) Eosinophils # (Auto) 0.7 x10^3/uL (0.0-0.7) Basophils # (Auto) 0.4 x10^3/uL (0.0-0.2) Prothrombin Time 13.4 SEC (11.7-14.0) Prothromb Time International Ratio 1.1 (0.8-1.1) Activated Partial Thromboplast Time 35 SEC (24-38) Sodium Level 138 mmol/L (136-145) Potassium Level 3.8 mmol/L (3.5-5.1) Chloride Level 100 mmol/L (98-107) Carbon Dioxide Level 31 mmol/L (21-32) Anion Gap 7 (6-14) Blood Urea Nitrogen 21 mg/dL (7-20) Creatinine 2.4 mg/dL (0.6-1.0) Estimated GFR (Cockcroft-Gault) 24.1 Glucose Level 198 mg/dL (70-99) Calcium Level 9.5 mg/dL (8.5-10.1) Phosphorus Level 2.3 mg/dL (2.6-4.7) Magnesium Level 2.0 mg/dL (1.8-2.4) Total Bilirubin 1.2 mg/dL (0.2-1.0) Direct Bilirubin 0.4 mg/dL (0.0-0.2) Aspartate Amino Transf (AST/SGOT) 43 U/L (15-37) Alanine Aminotransferase (ALT/SGPT) 10 U/L (14-59) Alkaline Phosphatase 183 U/L (46-116) Total Protein 4.9 g/dL (6.4-8.2) Albumin 2.1 g/dL (3.4-5.0) Test 02/21/17 07:33 02/21/17 11:51 Glucose (Fingerstick) 177 mg/dL (70-99) 172 mg/dL (70-99) Microbiology 02/14/17 Blood Culture - Final, Complete NO GROWTH AFTER 5 DAYS 02/14/17 Gram Stain - Final, Complete 02/14/17 Urine Culture - Final, Complete 02/14/17 Urine Culture Result 1 (DENNY) - Final, Complete Medications Current Medications Dextrose (Dextrose 50%-Water Syringe) 25 gm STK-MED ONCE IV ; Start 02/14/17 at 21:20; Stop 02/14/17 at 21:21; Status DC Sodium Chloride 2,040 ml @ 510 mls/hr Q4H IV Last administered on 02/14/17 21 :33; Start 02/14/17 at 21:33; Stop 02/14/17 at 22:05; Status DC Vancomycin HCl (Vanco Per Pharmacy) 1 each PRN DAILY PRN MC SEE COMMENTS Last administered on 02/17/17 07:34; Start 02/14/17 at 22:00; Stop 02/17/17 at 08:16 ; Status DC Levofloxacin/ Dextrose (Levaquin Per Pharmacy) 1 each PRN DAILY PRN MC SEE COMMENTS; Start 02/14/17 at 23:00; Stop 02/15/17 at 07:38; Status DC Vancomycin HCl 1.75 gm/Sodium Chloride 500 ml @ 250 mls/hr 1X ONCE IV Last administered on 02/14/17 22:21; Start 02/14/17 at 22:15; Stop 02/15/17 at 00:14 ; Status DC Sodium Chloride 1,000 ml @ 510 mls/hr Q1H58M IV ; Start 02/14/17 at 22:15; Stop 02/15/17 at 01:32; Status DC Levofloxacin/ Dextrose 100 ml @ 100 mls/hr Q48H IV Last administered on 22:58; Start 02/14/17 at 23:00; Stop 02/15/17 at 07:38; Status DC Dextrose (Dextrose 50%-Water Syringe) 25 gm 1X ONCE IV Last administered on 22:52; Start 02/14/17 at 23:00; Stop 02/14/17 at 23:01; Status DC Dextrose (Dextrose 50%-Water Syringe) 25 gm 1X ONCE IV ; Start 02/14/17 at 23: 00; Stop 02/14/17 at 23:01; Status DC Furosemide (Lasix) 40 mg 1X PRN PRN IV blood transfusion; Start 02/14/17 at 23: 00; Stop 02/15/17 at 22:59; Status DC Dopamine HCl/ Dextrose 250 ml @ 12.688 mls/ hr CONT PRN IV SEE I/O RECORD Last administered on 02/14/17 23:44; Start 02/14/17 at 23:15; Stop 02/20/17 at 10:19; Status DC Ondansetron HCl (Zofran) 4 mg PRN Q6HRS PRN IV NAUSEA/VOMITING Last administered on 02/17/17 12:29; Start 02/14/17 at 23:15 Famotidine (Pepcid) 10 mg BID IVP Last administered on 02/19/17 20:21; Start 02/15/17 at 09:00; Stop 02/20/17 at 12:02; Status DC Acetaminophen (Tylenol) 120 mg PRN Q6HRS PRN [place] MILD PAIN / TEMP; Start at 23:15 Acetaminophen (Tylenol) 500 mg PRN Q6HRS PRN PO MILD PAIN / TEMP Last administered on 02/20/17 13:13; Start 02/14/17 at 23:15 Vancomycin HCl 1 each 1X ONCE MC ; Start 02/16/17 at 22:30; Stop 02/16/17 at 22 :30; Status DC Ondansetron HCl (Zofran) 4 mg PRN Q8HRS PRN IV NAUSEA/VOMITING; Start 02/14/17 at 23:45; Stop 02/15/17 at 23:44; Status DC Dextrose/Sodium Chloride 1,000 ml @ 125 mls/hr 1X ONCE IV ; Start 02/14/17 at 23:45; Stop 02/15/17 at 07:44; Status DC Piperacillin Sod/ Tazobactam Sod 2.25 gm/Sodium Chloride 50 ml @ 100 mls/hr Q6HRS IV Last administered on 02/20/17 05:51; Start 02/15/17 at 07:30; Stop at 10:03; Status DC Micafungin Sodium 100 mg/Dextrose 100 ml @ 100 mls/hr Q24H IV Last administered on 02/19/17 09:25; Start 02/15/17 at 08:00; Stop 02/20/17 at 10:03 ; Status DC Fentanyl Citrate (Fentanyl 2ml Vial) 50 mcg PRN Q2HR PRN IV PAIN Last administered on 02/18/17 20:52; Start 02/15/17 at 09:15; Stop 02/20/17 at 10:19 ; Status DC Morphine Sulfate 4 mg PRN Q2HR PRN IV PAIN Last administered on 02/20/17 06:05 ; Start 02/15/17 at 09:45; Stop 02/20/17 at 10:19; Status DC Sodium Chloride 1,000 ml @ 75 mls/hr [id number] IV Last administered on 17:42; Start 02/15/17 at 10:00; Stop 02/16/17 at 17:54; Status DC Phytonadione (Vitamin K Ampule) 10 mg 1X ONCE SQ Last administered on 11:35; Start 02/15/17 at 10:30; Stop 02/15/17 at 10:33; Status DC Desmopressin Acetate 20 mcg/ Sodium Chloride 55 ml @ 102 mls/hr 1X ONCE IV Last administered on 02/15/17 11:35; Start 02/15/17 at 11:00; Stop 02/15/17 at 11:32; Status DC Hydroxyurea (Hydrea) 500 mg QMWF PO Last administered on 02/20/17 16:11; Start 02/15/17 at 11:00 Lidocaine/Sodium Bicarbonate (Buffered Lidocaine 1%) 20 ml STK-MED ONCE IJ ; Start 02/15/17 at 11:23; Stop 02/15/17 at 11:24; Status DC Heparin Sodium/ Sodium Chloride 500 ml @ As Directed STK-MED ONCE .ROUTE ; Start 02/15/17 at 11:23; Stop 02/15/17 at 11:24; Status DC Heparin Sodium (Porcine) (Heparin Sodium) 10,000 unit STK-MED ONCE .ROUTE ; Start 02/15/17 at 11:49; Stop 02/15/17 at 11:50; Status DC Lidocaine/Sodium Bicarbonate (Buffered Lidocaine 1%) 3 ml 1X ONCE IJ Last administered on 02/15/17 12:14; Start 02/15/17 at 12:00; Stop 02/15/17 at 12:14 ; Status DC Heparin Sodium/ Sodium Chloride 60 unit 1X ONCE IV Last administered on 12:17; Start 02/15/17 at 12:00; Stop 02/15/17 at 12:14; Status DC Heparin Sodium (Porcine) (Heparin Sodium) 2,500 unit 1X ONCE INT CAT Last administered on 02/15/17 12:17; Start 02/15/17 at 12:00; Stop 02/15/17 at 12:14 ; Status DC Vancomycin HCl 1 each 1X ONCE MC Last administered on 02/16/17 05:00; Start 02/16/17 at 05:00; Stop 02/16/17 at 05:01; Status DC Sodium Chloride 1,000 ml @ 1,000 mls/hr Q1H PRN IV hypotension; Start 02/15/17 at 13:56; Stop 02/15/17 at 19:55; Status DC Sodium Chloride 1,000 ml @ 400 mls/hr Q2H30M PRN IV PATENCY; Start 02/15/17 at 13:56; Stop 02/16/17 at 01:55; Status DC Info (PHARMACY MONITORING -- do not chart) 1 each PRN DAILY PRN MC SEE COMMENTS ; Start 02/15/17 at 14:00; Status UNV Info (PHARMACY MONITORING -- do not chart) 1 each PRN DAILY PRN MC SEE COMMENTS ; Start 02/15/17 at 14:00; Stop 02/17/17 at 11:20; Status DC Albuterol Sulfate (Ventolin Neb Soln) 2.5 mg PRN Q4HRS PRN NEB SHORTNESS OF BREATH; Start 02/15/17 at 15:30; Stop 02/20/17 at 11:14; Status DC Vancomycin HCl 500 mg/Sodium Chloride 100 ml @ 100 mls/hr 1X ONCE IV Last administered on 9/14/17at 17:41; Start 02/16/17 at 16:00; Stop 02/16/17 at 16:59 ; Status DC Sodium Chloride 1,000 ml @ 1,000 mls/hr Q1H PRN IV hypotension; Start 02/16/17 at 13:41; Stop 02/16/17 at 19:40; Status DC Sodium Chloride 1,000 ml @ 400 mls/hr Q2H30M PRN IV PATENCY; Start 02/16/17 at 13:41; Stop 02/17/17 at 01:40; Status DC Info (PHARMACY MONITORING -- do not chart) 1 each PRN DAILY PRN MC SEE COMMENTS ; Start 02/16/17 at 13:45; Stop 02/17/17 at 11:20; Status DC Vancomycin HCl 500 mg/Sodium Chloride 100 ml @ 100 mls/hr 1X ONCE IV ; Start 02/17/17 at 15:00; Stop 02/17/17 at 15:00; Status DC Sodium Chloride 1,000 ml @ 1,000 mls/hr Q1H PRN IV hypotension; Start 02/17/17 at 09:24; Stop 02/17/17 at 15:23; Status DC Sodium Chloride (Normal Saline Flush) 10 ml 1X PRN PRN IV AP catheter pack; Start 02/17/17 at 09:30; Stop 02/18/17 at 09:29; Status DC Sodium Chloride (Normal Saline Flush) 10 ml 1X PRN PRN IV [employer] catheter pack; Start 02/17/17 at 09:30; Stop 02/18/17 at 09:29; Status DC Sodium Chloride 1,000 ml @ 400 mls/hr Q2H30M PRN IV PATENCY; Start 02/17/17 at 09:24; Stop 02/17/17 at 21:23; Status DC Info (PHARMACY MONITORING -- do not chart) 1 each PRN DAILY PRN MC SEE COMMENTS ; Start 02/17/17 at 09:30; Stop 02/20/17 at 10:29; Status DC Albumin Human 100 ml @ 100 mls/hr 1X STAT IV Last administered on 02/17/17 09:49; Start 02/17/17 at 09:35; Stop 02/17/17 at 10:34; Status DC Albumin Human 100 ml @ 100 mls/hr 1X ONCE IV Last administered on 02/17/17 10:46; Start 02/17/17 at 10:45; Stop 02/17/17 at 11:44; Status DC Iohexol (Omnipaque 300 Mg/ml) 75 ml 1X ONCE IV ; Start 02/17/17 at 11:15; Stop 02/17/17 at 11:21; Status DC Info 1 each PRN DAILY PRN MC SEE COMMENTS Last administered on 02/19/17 11:38 ; Start 02/17/17 at 18:00; Stop 02/20/17 at 10:24; Status DC Sodium Chloride 90 meq/Potassium Chloride 50 meq/ Potassium Phosphate 13.6 mmol/ Magnesium Sulfate 10 meq/ Calcium Gluconate 10 meq/ Multivitamins 10 ml/Chromium / Copper/Manganese/ Seleni/Zn 1 ml/ Total Parenteral Nutrition/Amino Acids/ Dextrose/ Fat Emulsion Intravenous 1,512 ml @ 63 mls/hr TPN CONT IV Last administered on 02/18/17 22:02; Start 02/18/17 at 22:00; Stop 02/19/17 at 21:59 ; Status DC Iohexol (Omnipaque 300 Mg/ml) 75 ml 1X ONCE IV Last administered on 02/18/17 09:38; Start 02/18/17 at 09:30; Stop 02/18/17 at 09:31; Status DC Sodium Chloride 1,000 ml @ 1,000 mls/hr Q1H PRN IV hypotension; Start 02/18/17 at 10:09; Stop 02/18/17 at 16:08; Status DC Albumin Human 200 ml @ 200 mls/hr 1X PRN PRN IV Hypotension; Start 02/18/17 at 10:15; Stop 02/18/17 at 16:14; Status DC Sodium Chloride 1,000 ml @ 400 mls/hr Q2H30M PRN IV PATENCY; Start 02/18/17 at 10:09; Stop 02/18/17 at 22:08; Status DC Info (PHARMACY MONITORING -- do not chart) 1 each PRN DAILY PRN MC SEE COMMENTS ; Start 02/18/17 at 10:15; Status UNV Info (PHARMACY MONITORING -- do not chart) 1 each PRN DAILY PRN MC SEE COMMENTS ; Start 02/18/17 at 10:15; Status UNV Potassium Phosphate 13.6 mmol/Sodium Chloride 104.5333 ml @ 52.267 m... 1X ONCE IV Last administered on 02/19/17 09:25; Start 02/19/17 at 09:00; Stop at 10:59; Status DC Sodium Chloride 90 meq/Potassium Chloride 50 meq/ Potassium Phosphate 13.6 mmol/ Magnesium Sulfate 10 meq/ Calcium Gluconate 10 meq/ Multivitamins 10 ml/Chromium / Copper/Manganese/ Seleni/Zn 1 ml/ Total Parenteral Nutrition/Amino Acids/ Dextrose/ Fat Emulsion Intravenous 1,512 ml @ 63 mls/hr TPN CONT IV Last administered on 02/19/17 22:10; Start 02/19/17 at 22:00; Stop 02/20/17 at 10:19 ; Status DC Sodium Chloride 1,000 ml @ 1,000 mls/hr Q1H PRN IV hypotension; Start 02/20/17 at 09:55; Stop 02/20/17 at 10:19; Status DC Sodium Chloride 1,000 ml @ 400 mls/hr Q2H30M PRN IV PATENCY; Start 02/20/17 at 09:55; Stop 02/20/17 at 10:19; Status DC Info (PHARMACY MONITORING -- do not chart) 1 each PRN DAILY PRN MC SEE COMMENTS ; Start 02/20/17 at 10:00; Stop 02/20/17 at 10:04; Status DC Info (PHARMACY MONITORING -- do not chart) 1 each PRN DAILY PRN MC SEE COMMENTS ; Start 02/20/17 at 10:00 Allopurinol (Zyloprim) 300 mg DAILY PO Last administered on 02/21/17 10:40; Start 02/20/17 at 11:00 Aspirin (Ecotrin) 81 mg DAILY PO Last administered on 02/21/17 10:39; Start at 11:00 Carvedilol (Coreg) 12.5 mg BIDWMEALS PO Last administered on 02/21/17 10:39; Start 02/20/17 at 12:00 Paricalcitol (Zemplar) 1 mcg DAILY PO Last administered on 02/21/17 10:40; Start 02/20/17 at 11:00 Sevelamer Carbonate (Renvela) 1,600 mg TIDWMEALS PO Last administered on 10:41; Start 02/20/17 at 12:00 Sodium Bicarbonate (Sodium Bicarbonate) 850 mg BID PO Last administered on 02/21 10:41; Start 02/20/17 at 11:00 Non-Formulary Medication 2 puff PRN Q4HRS PRN INH SHORTNESS OF BREATH; Start at 10:30; Stop 02/20/17 at 11:17; Status DC Non-Formulary Medication 1 puff Q12HR IH ; Start 02/20/17 at 21:00; Stop at 21:00; Status DC Pantoprazole Sodium (Protonix) 40 mg DAILYAC PO Last administered on 02/21/17 10:38; Start 02/20/17 at 11:30 Insulin Detemir (Levemir) 20 units QHS SQ Last administered on 02/20/17 21:23 ; Start 02/20/17 at 21:00 Amlodipine Besylate (Norvasc) 10 mg DAILY PO Last administered on 02/21/17 10: 40; Start 02/20/17 at 11:00 Albuterol Sulfate (Ventolin Neb Soln) 2.5 mg PRN Q4HRS PRN NEB SHORTNESS OF BREATH; Start 02/20/17 at 11:15 Albuterol Sulfate (Ventolin Neb Soln) 2.5 mg Q6HRS NEB Last administered on 12:51; Start 02/20/17 at 12:00 Budesonide (Pulmicort) 0.5 mg RTBID NEB Last administered on 02/21/17 07:41; Start 02/20/17 at 20:00 Acetaminophen/ Hydrocodone Bitart (Lortab 5/325) 1 tab PRN Q6HRS PRN PO PAIN Last administered on 02/20/17 16:03; Start 02/20/17 at 15:15 Heparin Sodium (Porcine) (Heparin Sodium) 10,000 unit STK-MED ONCE .ROUTE ; Start 02/21/17 at 09:11; Stop 02/21/17 at 09:12; Status DC Lidocaine/ Epinephrine (Xylocaine 1%-Epi 1:100,000) 20 ml STK-MED ONCE .ROUTE ; Start 02/21/17 at 09:11; Stop 02/21/17 at 09:12; Status DC Heparin Sodium/ Sodium Chloride 500 ml @ As Directed STK-MED ONCE .ROUTE ; Start 02/21/17 at 09:11; Stop 02/21/17 at 09:12; Status DC Cefazolin Sodium 50 ml @ As Directed STK-MED ONCE IV ; Start 02/21/17 at 09:30; Stop 02/21/17 at 09:31; Status DC Fentanyl Citrate (Fentanyl 2ml Vial) 100 mcg STK-MED ONCE .ROUTE ; Start at 09:31; Stop 02/21/17 at 09:32; Status DC Midazolam HCl (Versed) 2 mg STK-MED ONCE .ROUTE ; Start 02/21/17 at 09:31; Stop 02/21/17 at 09:32; Status DC Heparin Sodium/ Sodium Chloride 1,000 unit 1X ONCE IART Last administered on 10:06; Start 02/21/17 at 10:00; Stop 02/21/17 at 10:01; Status DC Midazolam HCl (Versed) 2 mg 1X ONCE IV Last administered on 02/21/17 10:07; Start 02/21/17 at 10:00; Stop 02/21/17 at 10:01; Status DC Fentanyl Citrate (Fentanyl 2ml Vial) 100 mcg 1X ONCE IV Last administered on 10:07; Start 02/21/17 at 10:00; Stop 02/21/17 at 10:01; Status DC Lidocaine/ Epinephrine (Xylocaine 1%-Epi 1:100,000) 20 ml 1X ONCE IJ Last administered on 02/21/17 10:06; Start 02/21/17 at 10:00; Stop 02/21/17 at 10:01 ; Status DC Cefazolin Sodium 50 ml @ 100 mls/hr 1X ONCE IV Last administered on 10:08; Start 02/21/17 at 10:00; Stop 02/21/17 at 10:29; Status DC Heparin Sodium (Porcine) (Heparin Sodium) 2,600 unit 1X ONCE INT CAT Last administered on 02/21/17 10:06; Start 02/21/17 at 10:00; Stop 02/21/17 at 10:01 ; Status DC Active Scripts Active Reported Lantus Solostar (Insulin Glargine,Hum.rec.anlog) 100 Unit/1 Ml Insuln.pen 22 Unit SQ QHS Droxia (Hydroxyurea) 200 Mg Capsule 200 Mg PO DAILY Feosol (Ferrous Sulfate) 325 Mg Tablet 325 Mg PO DAILY Coreg (Carvedilol) 12.5 Mg Tablet 1 Tab PO BID Bumetanide 2 Mg Tablet 2 Tab PO BID Aspir 81 (Aspirin) 81 Mg Tablet.dr 1 Tab PO DAILY Allopurinol 300 Mg Tablet 1 Tab PO DAILY Advair 250-50 Diskus (Fluticasone/Salmeterol) 1 Each Disk.w.dev 1 Puff IH Q12HR Zetia (Ezetimibe) 10 Mg Tablet 0.5 Tab PO DAILY Zemplar (Paricalcitol) 1 Mcg Capsule 1 Cap PO DAILY Sodium Bicarbonate 650 Mg Tablet 850 Mg PO BID Sensipar (Cinacalcet Hcl) 30 Mg Tablet 30 Mg PO QODAY Renvela (Sevelamer Carbonate) 800 Mg Tablet 2 Tab PO TID Proair Hfa Inhaler (Albuterol Sulfate) 8.5 Gm Hfa.aer.ad 2 Puff INH PRN Q4HRS PRN Omeprazole 40 Mg Capsule.dr 1 Cap PO DAILY Percocet 5-325 Mg Tablet (Oxycodone/Acetaminophen) 1 Each Tablet 1-2 Tab PO PRN Q6HRS PRN Novolog Flexpen (Insulin Aspart) 100 Unit/1 Ml Insuln.pen 15 Unit SQ DAILY Novolog Flexpen (Insulin Aspart) 100 Unit/1 Ml Insuln.pen 12 Unit SQ BIDACBL Norvasc (Amlodipine Besylate) 10 Mg Tablet 10 Mg PO DAILY Miralax (Polyethylene Glycol 3350) 17 Gm Powd.pack 1 Packet PO DAILY Lipitor (Atorvastatin Calcium) 40 Mg Tablet 1 Tab PO DAILY Lidocaine 1 Each Adh..patch 1 Each TP DAILY Vitals/I & O Vital Sign - Last 24 Hours 02/20/17 02/20/17 02/20/17 02/20/17 15:09 16:03 16:03 16:55 Temp 97.9 97.9 Pulse 98 98 Resp 18 B/P (MAP) 145/83 (103) 145/83 Pulse Ox 99 O2 Delivery Room Air Room Air Room Air 02/20/17 02/20/17 02/20/17 02/20/17 18:59 19:01 19:25 20:00 Temp 98.5 98.5 Pulse 88 Resp 20 B/P (MAP) 134/76 (95) Pulse Ox 95 95 95 O2 Delivery Room Air Room Air Room Air Room Air 02/20/17 02/21/17 02/21/17 02/21/17 23:30 03:30 07:00 07:41 Temp 97.9 98.4 97.9 97.9 98.4 97.9 Pulse 99 101 102 Resp 20 20 16 B/P (MAP) 152/92 (112) 149/87 (107) 158/94 (115) Pulse Ox 97 97 98 O2 Delivery Room Air Room Air Room Air Room Air 02/21/17 02/21/17 02/21/17 02/21/17 08:00 10:07 10:15 10:30 Temp 97.5 97.5 Pulse 105 108 Resp 18 B/P (MAP) 166/95 (118) Pulse Ox 94 94 97 O2 Delivery Room Air Nasal Cannula Nasal Cannula Room Air O2 Flow Rate 2.0 2.0 02/21/17 02/21/17 02/21/17 02/21/17 10:39 10:40 10:45 10:46 Pulse 118 118 115 B/P (MAP) 166/95 166/95 161/101 (121) Pulse Ox 96 O2 Delivery Room Air 02/21/17 02/21/17 02/21/17 02/21/17 11:00 11:15 11:45 12:15 Temp Pulse 112 113 110 104 Resp B/P (MAP) 163/109 (127) 166/105 (125) 160/102 (121) 161/92 (115) Pulse Ox O2 Delivery 02/21/17 02/21/17 12:51 13:15 Pulse 101 B/P (MAP) 145/84 (104) O2 Delivery Room Air Nutrition Consultation Dietary Evaluation: Recommendations by RD: Increase Calorie Intake Comments: TF cx, TPN d/c diet per SHEEPSKIN PICKLER Expected Outcomes/Goals: to meet > 75% est nutr needs via po intake Interpretation of weight loss: >1-2% in 1 week Malnutrition Findings: Food and Nutrition Intake (Mod: <75% est energy req 7days Weight Status: Appropriate ALPESH BROWN MD Feb 21, 2017 13:29
[2017-02-21] MEDS: HYDROcodone/APAP 5/325MG 1 TAB TABLET PO PRN (16:05)
--- NOTE | 2017-02-21 17:15 | PDOC ---
SUBJECTIVE ROS ESRD Some Bleeding from PD exit site CVS: no Orthopnea, no CP RESP: n SOB, on MATHEWS GI: occ Nausea, no Vomiting + Diarrhea : no Dysuria, no Urgency OBJECTIVE Vital Signs Vital Signs Date Time Temp Pulse Resp B/P (MAP) Pulse Ox O2 Delivery O2 Flow Rate FiO2 02/21/17 17:04 Room Air 02/21/17 16:05 104 140/89 02/21/17 15:00 98.2 16 94 98.2 02/21/17 10:15 2.0 PHYSICAL EXAM Physical Exam GEN: Awake, Oriented x 3, In no distress EYES: Vision Unchanged, Conjunctiva Normal EN: No EN Drainage, Mucous Membranes moist NECK: no JVD, min JVP, Supple, no Thyromegaly CVS: S1S2, soft Murmur, No Gallop, No Rub,tr Edema RESP: no Rales, no Rhonchi,no Acc. Muscle Use GI: BS + ve, NO Bruit, Non Tender, Non Distended : no CVA tenderness, no Suprapubic Tenderness DIAGNOSIS/ASSESSMENT Assessment & Plan ESRD: Current fluid and E-lyte status does not necessitate emergent need for dialysis. Will re-evaluate for dialysis in the am and continue on MWF schedule. ? Leave PD Cath for now. Re-CT at some point prior to use. 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 See orders for changes. Low Phos - resolved after IV K Phos given Nutrition - appetite remains poor; TPN was stopped yest since Trialysis line Came out. Discussed Plan of Care with pt at bedside COMMENT/RELEVANT DATA Meds Current Medications Medications (Trade) Dose Ordered Sig/Tri Start Time Stop Time Status Last Admin Dose Admin Acetaminophen (Tylenol) 500 mg PRN Q6HRS PRN 02/14/17 23:15 02/20/17 13:13 500 MG Acetaminophen/ Hydrocodone Bitart (Lortab 5/325) 1 tab PRN Q6HRS PRN 02/20/17 15:15 02/21/17 16:05 1 TAB Albumin Human 200 ml @ 200 mls/hr 1X PRN PRN 02/18/17 10:15 02/18/17 16:14 DC Albuterol Sulfate (Ventolin Neb Soln) 2.5 mg Q6HRS 02/20/17 12:00 02/21/17 12:51 2.5 MG Allopurinol (Zyloprim) 300 mg DAILY 02/20/17 11:00 02/21/17 10:40 300 MG Amlodipine Besylate (Norvasc) 10 mg DAILY 02/20/17 11:00 02/21/17 10:40 10 MG Aspirin (Ecotrin) 81 mg DAILY 02/20/17 11:00 02/21/17 10:39 81 MG Budesonide (Pulmicort) 0.5 mg RTBID 02/20/17 20:00 02/21/17 07:41 0.5 MG Carvedilol (Coreg) 12.5 mg BIDWMEALS 02/20/17 12:00 02/21/17 16:05 12.5 MG Cefazolin Sodium 50 ml @ 100 mls/hr 1X ONCE 02/21/17 10:00 02/21/17 10:29 DC 02/21/17 10:08 100 MLS/HR Desmopressin Acetate 20 mcg/ Sodium Chloride 55 ml @ 102 mls/hr 1X ONCE 02/15/17 11:00 02/15/17 11:32 DC 02/15/17 11:35 102 MLS/HR Dextrose (Dextrose 50%-Water Syringe) 25 gm 1X ONCE 02/14/17 23:00 02/14/17 23:01 DC Dextrose/Sodium Chloride 1,000 ml @ 125 mls/hr 1X ONCE 02/14/17 23:45 02/15/17 07:44 DC Dopamine HCl/ Dextrose 250 ml @ 12.688 mls/ hr CONT PRN 02/14/17 23:15 02/20/17 10:19 DC 02/14/17 23:44 12.688 MLS/HR Famotidine (Pepcid) 10 mg BID 02/15/17 09:00 02/20/17 12:02 DC 02/19/17 20:21 10 MG Fentanyl Citrate (Fentanyl 2ml Vial) 100 mcg 1X ONCE 02/21/17 10:00 02/21/17 10:01 DC 02/21/17 10:07 100 MCG Furosemide (Lasix) 40 mg 1X PRN PRN 02/14/17 23:00 02/15/17 22:59 DC Heparin Sodium (Porcine) (Heparin Sodium) 2,600 unit 1X ONCE 02/21/17 10:00 02/21/17 10:01 DC 02/21/17 10:06 3,800 UNIT Heparin Sodium/ Sodium Chloride 1,000 unit 1X ONCE 02/21/17 10:00 02/21/17 10:01 DC 02/21/17 10:06 1,000 UNIT Hydroxyurea (Hydrea) 500 mg QMWF 02/15/17 11:00 02/20/17 16:11 500 MG Info (PHARMACY MONITORING -- do not chart) 1 each PRN DAILY PRN 02/20/17 10:00 Insulin Detemir (Levemir) 20 units QHS 02/20/17 21:00 02/20/17 21:23 20 UNITS Iohexol (Omnipaque 300 Mg/ml) 75 ml 1X ONCE 02/18/17 09:30 02/18/17 09:31 DC 02/18/17 09:38 75 ML Levofloxacin/ Dextrose 100 ml @ 100 mls/hr Q48H 02/14/17 23:00 02/15/17 07:38 DC 02/14/17 22:58 100 MLS/HR Levofloxacin/ Dextrose (Levaquin Per Pharmacy) 1 each PRN DAILY PRN 02/14/17 23:00 02/15/17 07:38 DC Lidocaine/ Epinephrine (Xylocaine 1%-Epi 1:100,000) 20 ml 1X ONCE 02/21/17 10:00 02/21/17 10:01 DC 02/21/17 10:06 10 ML Lidocaine/Sodium Bicarbonate (Buffered Lidocaine 1%) 3 ml 1X ONCE 02/15/17 12:00 02/15/17 12:14 DC 02/15/17 12:14 5 ML Micafungin Sodium 100 mg/Dextrose 100 ml @ 100 mls/hr Q24H 02/15/17 08:00 02/20/17 10:03 DC 02/19/17 09:25 100 MLS/HR Midazolam HCl (Versed) 2 mg 1X ONCE 02/21/17 10:00 02/21/17 10:01 DC 02/21/17 10:07 2 MG Morphine Sulfate 4 mg PRN Q2HR PRN 02/15/17 09:45 02/20/17 10:19 DC 02/20/17 06:05 4 MG Non-Formulary Medication 1 puff Q12HR 02/20/17 21:00 02/20/17 21:00 DC Ondansetron HCl (Zofran) 4 mg PRN Q8HRS PRN 02/14/17 23:45 02/15/17 23:44 DC Pantoprazole Sodium (Protonix) 40 mg DAILYAC 02/20/17 11:30 02/21/17 10:38 40 MG Paricalcitol (Zemplar) 1 mcg DAILY 02/20/17 11:00 02/21/17 10:40 1 MCG Phytonadione (Vitamin K Ampule) 10 mg 1X ONCE 02/15/17 10:30 02/15/17 10:33 DC 02/15/17 11:35 10 MG Piperacillin Sod/ Tazobactam Sod 2.25 gm/Sodium Chloride 50 ml @ 100 mls/hr Q6HRS 02/15/17 07:30 02/20/17 10:03 DC 02/20/17 05:51 100 MLS/HR Potassium Phosphate 13.6 mmol/Sodium Chloride 104.5333 ml @ 52.267 m... 1X ONCE 02/19/17 09:00 02/19/17 10:59 DC 02/19/17 09:25 52.267 MLS/HR Sevelamer Carbonate (Renvela) 1,600 mg TIDWMEALS 02/20/17 12:00 02/21/17 16:04 1,600 MG Sodium Bicarbonate (Sodium Bicarbonate) 850 mg BID 02/20/17 11:00 02/21/17 10:41 850 MG Sodium Chloride 1,000 ml @ 400 mls/hr Q2H30M PRN 02/20/17 09:55 02/20/17 10:19 DC Sodium Chloride (Normal Saline Flush) 10 ml 1X PRN PRN 02/17/17 09:30 02/18/17 09:29 DC Sodium Chloride 90 meq/Potassium Chloride 50 meq/ Potassium Phosphate 13.6 mmol/Magnesium Sulfate 10 meq/ Calcium Gluconate 10 meq/ Multivitamins 10 ml/Chromium/ Copper/Manganese/ Seleni/Zn 1 ml/ Total Parenteral Nutrition/Amino Acids/Dextrose/ Fat Emulsion Intravenous 1,512 ml @ 63 mls/hr TPN CONT 02/19/17 22:00 02/20/17 10:19 DC 02/19/17 22:10 63 MLS/HR Vancomycin HCl (Vanco Per Pharmacy) 1 each PRN DAILY PRN 02/14/17 22:00 02/17/17 08:16 DC 02/17/17 07:34 1 EACH Vancomycin HCl 1.75 gm/Sodium Chloride 500 ml @ 250 mls/hr 1X ONCE 02/14/17 22:15 02/15/17 00:14 DC 02/14/17 22:21 250 MLS/HR Vancomycin HCl 500 mg/Sodium Chloride 100 ml @ 100 mls/hr 1X ONCE 02/17/17 15:00 02/17/17 15:00 DC Lab Laboratory Tests Test 02/20/17 17:37 02/20/17 20:57 02/21/17 03:25 02/21/17 07:33 Glucose (Fingerstick) 308 mg/dL (70-99) 308 mg/dL (70-99) 177 mg/dL (70-99) White Blood Count 64.6 x10^3/uL (4.0-11.0) Red Blood Count 3.09 x10^6/uL (3.50-5.40) Hemoglobin 8.8 g/dL (12.0-15.5) Hematocrit 27.6 % (36.0-47.0) Mean Corpuscular Volume 89 fL (79-100) Mean Corpuscular Hemoglobin 28 pg (25-35) Mean Corpuscular Hemoglobin Concent 32 g/dL (31-37) Red Cell Distribution Width 17.4 % (11.5-14.5) Platelet Count 255 x10^3/uL (140-400) Neutrophils (%) (Auto) 96 % (31-73) Lymphocytes (%) (Auto) 1 % (24-48) Monocytes (%) (Auto) 1 % (0-9) Eosinophils (%) (Auto) 1 % (0-3) Basophils (%) (Auto) 1 % (0-3) Neutrophils # (Auto) 62.2 x10^3uL (1.8-7.7) Lymphocytes # (Auto) 0.7 x10^3/uL (1.0-4.8) Monocytes # (Auto) 0.7 x10^3/uL (0.0-1.1) Eosinophils # (Auto) 0.7 x10^3/uL (0.0-0.7) Basophils # (Auto) 0.4 x10^3/uL (0.0-0.2) Prothrombin Time 13.4 SEC (11.7-14.0) Prothromb Time International Ratio 1.1 (0.8-1.1) Activated Partial Thromboplast Time 35 SEC (24-38) Sodium Level 138 mmol/L (136-145) Potassium Level 3.8 mmol/L (3.5-5.1) Chloride Level 100 mmol/L (98-107) Carbon Dioxide Level 31 mmol/L (21-32) Anion Gap 7 (6-14) Blood Urea Nitrogen 21 mg/dL (7-20) Creatinine 2.4 mg/dL (0.6-1.0) Estimated GFR (Cockcroft-Gault) 24.1 Glucose Level 198 mg/dL (70-99) Calcium Level 9.5 mg/dL (8.5-10.1) Phosphorus Level 2.3 mg/dL (2.6-4.7) Magnesium Level 2.0 mg/dL (1.8-2.4) Total Bilirubin 1.2 mg/dL (0.2-1.0) Direct Bilirubin 0.4 mg/dL (0.0-0.2) Aspartate Amino Transf (AST/SGOT) 43 U/L (15-37) Alanine Aminotransferase (ALT/SGPT) 10 U/L (14-59) Alkaline Phosphatase 183 U/L (46-116) Total Protein 4.9 g/dL (6.4-8.2) Albumin 2.1 g/dL (3.4-5.0) Test 02/21/17 11:51 Glucose (Fingerstick) 172 mg/dL (70-99) MARJAN GRANT MD Feb 21, 2017 17:15
[2017-02-21] MEDS: ONDANSETRON PF 4 MG/2 ML VIAL. IV PRN (17:42)
[2017-02-21] MEDS: INSULIN DETEMIR 300 UNITS/3 ML INSULN.PEN. SQ SCH (21:03)
[2017-02-22 03:20] VITALS: BP 141/83
[2017-02-22 05:59] LABS: BASO # 0.6 x10^3/uL (0.0-0.2); BASO % 1 % (0-3); EOS % 1 % (0-3); HEMATOCRIT 29.1 % (36.0-47.0); HEMOGLOBIN 9.4 g/dL (12.0-15.5); LYMPH # 0.9 x10^3/uL (1.0-4.8); LYMPH % 1 % (24-48); MEAN CORPUSCULAR HEMOGLOBIN 29 pg (25-35); MEAN CORPUSCULAR HGB CONC 32 g/dL (31-37); MEAN CORPUSCULAR VOLUME 88 fL (79-100); MONO % 1 % (0-9); NEUT % 96 % (31-73); PLATELET COUNT 297 x10^3/uL (140-400); RED BLOOD COUNT 3.29 x10^6/uL (3.50-5.40); RED CELL DISTRIBUTION WIDTH 17.1 % (11.5-14.5)
[2017-02-22 06:04] LABS: WHITE BLOOD COUNT 72.4 x10^3/uL (4.0-11.0)
[2017-02-22 07:00] VITALS: BP 152/90
--- NOTE | 2017-02-22 07:17 | RAD ---
KAYLEY, 02/21/2017: History: Follow-up constipation Comparison is made to a study from 02/16/2017. A peritoneal dialysis type catheter extends into the mid abdomen. Gas is present in large and small bowel in a nonspecific pattern. Much of the stool present in the colon on the previous study has cleared. There is no evidence of organomegaly. There is a mild thoracolumbar scoliosis with associated degenerative change. IMPRESSION: No acute abdominal abnormality is detected.
[2017-02-22] MEDS: ALBUTEROL SULFATE 2.5 MG/3 ML NEBU. NEB SCH ×2 (07:34→11:38)
[2017-02-22] MEDS: BUDESONIDE 0.5 MG/2 ML NEBU. NEB SCH (07:34)
[2017-02-22] MEDS: ALLOPURINOL 300 MG TABLET. PO SCH (07:56)
[2017-02-22] MEDS: PANTOPRAZOLE 40 MG TABLET.DR. PO SCH (07:56)
[2017-02-22] MEDS: PARICALCITOL 1 MCG CAPSULE PO SCH (07:57)
[2017-02-22] MEDS: CARVEDILOL 12.5 MG TABLET. PO SCH (07:57)
[2017-02-22] MEDS: SEVELAMER CARBONATE 800 MG TABLET. PO SCH ×2 (07:57→11:53)
[2017-02-22] MEDS: amLODIPine BESYLATE 10 MG TABLET PO SCH (07:57)
[2017-02-22] MEDS: ASPIRIN ENTERIC COATED 81 MG TABLET.DR. PO SCH (07:57)
[2017-02-22] MEDS: SODIUM BICARBONATE 650 MG TABLET. PO SCH (07:58)
--- NOTE | 2017-02-22 09:43 | PDOC ---
Infectious Disease Note Subjective Subjective Comfortable, denies pain Supplemental O2 ROS ROS GEN: Denies fevers, chills, sweats HEENT: Denies blurred vision, sore throat CV: Denies chest pain RESP: Denies shortness of air, cough GI: Denies n/v/d NEURO: Denies confusion, dizziness MSK: Denies weakness, joint pain/swelling Vital Sign Vital Signs Vital Signs Date Time Temp Pulse Resp B/P (MAP) Pulse Ox O2 Delivery O2 Flow Rate FiO2 02/22/17 07:57 96 152/90 02/22/17 07:34 98 Room Air 02/22/17 07:00 97.5 20 97.5 02/21/17 10:15 2.0 Physical Exam PHYSICAL EXAM GENERAL: NAD, Alert HEENT: PERRL, OC/OP NECK: Supple, no JVD, no LN LUNGS: Clear HEART: S1S2, no gallop, no murmur ABD: Soft, NT, no organomegaly, no rebound EXT: No edema, no cyanosis IS CONSULTANT: Alert, oriented x 3, no focal neurologic deficit SKIN: No rash IV: ok Labs Lab Laboratory Tests Test 02/21/17 11:51 02/21/17 17:19 02/21/17 20:45 02/22/17 05:15 Glucose (Fingerstick) 172 mg/dL (70-99) 224 mg/dL (70-99) 231 mg/dL (70-99) White Blood Count 72.4 x10^3/uL (4.0-11.0) Red Blood Count 3.29 x10^6/uL (3.50-5.40) Hemoglobin 9.4 g/dL (12.0-15.5) Hematocrit 29.1 % (36.0-47.0) Mean Corpuscular Volume 88 fL (79-100) Mean Corpuscular Hemoglobin 29 pg (25-35) Mean Corpuscular Hemoglobin Concent 32 g/dL (31-37) Red Cell Distribution Width 17.1 % (11.5-14.5) Platelet Count 297 x10^3/uL (140-400) Neutrophils (%) (Auto) 96 % (31-73) Lymphocytes (%) (Auto) 1 % (24-48) Monocytes (%) (Auto) 1 % (0-9) Eosinophils (%) (Auto) 1 % (0-3) Basophils (%) (Auto) 1 % (0-3) Neutrophils # (Auto) 69.5 x10^3uL (1.8-7.7) Lymphocytes # (Auto) 0.9 x10^3/uL (1.0-4.8) Monocytes # (Auto) 0.8 x10^3/uL (0.0-1.1) Eosinophils # (Auto) 0.5 x10^3/uL (0.0-0.7) Basophils # (Auto) 0.6 x10^3/uL (0.0-0.2) Test 02/22/17 07:23 Glucose (Fingerstick) 80 mg/dL (70-99) Micro all cultures are neg Objective Assessment Sepsis - POA (hypothermia/leukocytosis/lactic acidosis). cults neg Leukocytosis - in part reactive to bleed and transfusions/myelofibrosis. Better Elevated TSH - ? euthyroid. T4 ok Abd hematoma - Possibly infected - cult negative CKD - needing PD but not yet started (states PD cath placed 02/09). 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
--- NOTE | 2017-02-22 10:24 | PDOC ---
PROGRESS NOTES Subjective Subjective c/c - f/u of Secondary myelofibrosis ROS - no abd pain Objective Objective Vital Signs Date Time Temp Pulse Resp B/P (MAP) Pulse Ox O2 Delivery O2 Flow Rate FiO2 02/22/17 08:00 Room Air 2.0 02/22/17 07:57 96 152/90 02/22/17 07:34 98 02/22/17 07:00 97.5 20 97.5 Physical Exam Heart: Normal S1, Normal S2 General: Alert, Oriented X3 Lungs: Clear to auscultation Assessment Assessment Problems Medical Problems: (1) Anemia Status: Acute (2) Coagulopathy Status: Acute (3) Congestive heart failure Status: Acute (4) End stage renal disease Status: Acute (5) Hypoglycemia Status: Acute (6) Hypotension Status: Acute (7) Myelodysplastic syndrome Status: Acute IMPRESSION AND PLAN: 1. 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 She was off hydroxyurea for almost 2-3 weeks prior to this admission because of renal failure. Her blood counts are significantly worse with worsening WBC and worsening platelets. Hence, I resumed hydroxyurea 02/15/17. Elevated platelet counts in patients with essential thrombocythemia can also increase the risk of bleeding. Hence, it is essential to decrease the platelet counts with the help of hydroxyurea. I will continue to monitor WBC, hemoglobin, and platelet counts closely while she is on hydroxyurea. 2. Hematoma, intraabdominal, due to recent peritoneal dialysis catheter placement. Her INR is elevated at 1.8. She already received 3 units of FFP and s/p 1 dose of vitamin K 02/15/17. Her creatinine is 6.6 with BUN of 65. Patients with uncontrolled myeloproliferative disorder and the patients with uremia can have deficiency of von Willebrand factor. s/p 20 mcg of DDAVP 02/15/17 for management of the underlying hematoma. 3. Sepsis. Appreciate ID consultation. 4. Leukocytosis due to myelofibrosis. Worse at 107 on 02/17/17. Continue hydrea. Plan peripheral smear review by pathology. Improved to 72.4 5. Thrombocytosis due to myelofibrosis. Plan hydroxyurea as described above. Plt improved to 297. 6. Anemia - s/p transfusion, Hb 9.4. 7. Coagulopathy - s/p FFP/Vit K/DDAVP Comment Review of Relevant I have reviewed the following items laure (where applicable) has been applied. Labs Laboratory Tests Test 02/20/17 14:15 02/20/17 17:37 02/20/17 20:57 02/21/17 03:25 Glucose (Fingerstick) 301 mg/dL (70-99) 308 mg/dL (70-99) 308 mg/dL (70-99) White Blood Count 64.6 x10^3/uL (4.0-11.0) Red Blood Count 3.09 x10^6/uL (3.50-5.40) Hemoglobin 8.8 g/dL (12.0-15.5) Hematocrit 27.6 % (36.0-47.0) Mean Corpuscular Volume 89 fL (79-100) Mean Corpuscular Hemoglobin 28 pg (25-35) Mean Corpuscular Hemoglobin Concent 32 g/dL (31-37) Red Cell Distribution Width 17.4 % (11.5-14.5) Platelet Count 255 x10^3/uL (140-400) Neutrophils (%) (Auto) 96 % (31-73) Lymphocytes (%) (Auto) 1 % (24-48) Monocytes (%) (Auto) 1 % (0-9) Eosinophils (%) (Auto) 1 % (0-3) Basophils (%) (Auto) 1 % (0-3) Neutrophils # (Auto) 62.2 x10^3uL (1.8-7.7) Lymphocytes # (Auto) 0.7 x10^3/uL (1.0-4.8) Monocytes # (Auto) 0.7 x10^3/uL (0.0-1.1) Eosinophils # (Auto) 0.7 x10^3/uL (0.0-0.7) Basophils # (Auto) 0.4 x10^3/uL (0.0-0.2) Prothrombin Time 13.4 SEC (11.7-14.0) Prothromb Time International Ratio 1.1 (0.8-1.1) Activated Partial Thromboplast Time 35 SEC (24-38) Sodium Level 138 mmol/L (136-145) Potassium Level 3.8 mmol/L (3.5-5.1) Chloride Level 100 mmol/L (98-107) Carbon Dioxide Level 31 mmol/L (21-32) Anion Gap 7 (6-14) Blood Urea Nitrogen 21 mg/dL (7-20) Creatinine 2.4 mg/dL (0.6-1.0) Estimated GFR (Cockcroft-Gault) 24.1 Glucose Level 198 mg/dL (70-99) Calcium Level 9.5 mg/dL (8.5-10.1) Phosphorus Level 2.3 mg/dL (2.6-4.7) Magnesium Level 2.0 mg/dL (1.8-2.4) Total Bilirubin 1.2 mg/dL (0.2-1.0) Direct Bilirubin 0.4 mg/dL (0.0-0.2) Aspartate Amino Transf (AST/SGOT) 43 U/L (15-37) Alanine Aminotransferase (ALT/SGPT) 10 U/L (14-59) Alkaline Phosphatase 183 U/L (46-116) Total Protein 4.9 g/dL (6.4-8.2) Albumin 2.1 g/dL (3.4-5.0) Test 02/21/17 07:33 02/21/17 11:51 02/21/17 17:19 02/21/17 20:45 Glucose (Fingerstick) 177 mg/dL (70-99) 172 mg/dL (70-99) 224 mg/dL (70-99) 231 mg/dL (70-99) Test 02/22/17 05:15 02/22/17 07:23 White Blood Count 72.4 x10^3/uL (4.0-11.0) Red Blood Count 3.29 x10^6/uL (3.50-5.40) Hemoglobin 9.4 g/dL (12.0-15.5) Hematocrit 29.1 % (36.0-47.0) Mean Corpuscular Volume 88 fL (79-100) Mean Corpuscular Hemoglobin 29 pg (25-35) Mean Corpuscular Hemoglobin Concent 32 g/dL (31-37) Red Cell Distribution Width 17.1 % (11.5-14.5) Platelet Count 297 x10^3/uL (140-400) Neutrophils (%) (Auto) 96 % (31-73) Lymphocytes (%) (Auto) 1 % (24-48) Monocytes (%) (Auto) 1 % (0-9) Eosinophils (%) (Auto) 1 % (0-3) Basophils (%) (Auto) 1 % (0-3) Neutrophils # (Auto) 69.5 x10^3uL (1.8-7.7) Lymphocytes # (Auto) 0.9 x10^3/uL (1.0-4.8) Monocytes # (Auto) 0.8 x10^3/uL (0.0-1.1) Eosinophils # (Auto) 0.5 x10^3/uL (0.0-0.7) Basophils # (Auto) 0.6 x10^3/uL (0.0-0.2) Glucose (Fingerstick) 80 mg/dL (70-99) Laboratory Tests Test 02/21/17 11:51 02/21/17 17:19 02/21/17 20:45 02/22/17 05:15 Glucose (Fingerstick) 172 mg/dL (70-99) 224 mg/dL (70-99) 231 mg/dL (70-99) White Blood Count 72.4 x10^3/uL (4.0-11.0) Red Blood Count 3.29 x10^6/uL (3.50-5.40) Hemoglobin 9.4 g/dL (12.0-15.5) Hematocrit 29.1 % (36.0-47.0) Mean Corpuscular Volume 88 fL (79-100) Mean Corpuscular Hemoglobin 29 pg (25-35) Mean Corpuscular Hemoglobin Concent 32 g/dL (31-37) Red Cell Distribution Width 17.1 % (11.5-14.5) Platelet Count 297 x10^3/uL (140-400) Neutrophils (%) (Auto) 96 % (31-73) Lymphocytes (%) (Auto) 1 % (24-48) Monocytes (%) (Auto) 1 % (0-9) Eosinophils (%) (Auto) 1 % (0-3) Basophils (%) (Auto) 1 % (0-3) Neutrophils # (Auto) 69.5 x10^3uL (1.8-7.7) Lymphocytes # (Auto) 0.9 x10^3/uL (1.0-4.8) Monocytes # (Auto) 0.8 x10^3/uL (0.0-1.1) Eosinophils # (Auto) 0.5 x10^3/uL (0.0-0.7) Basophils # (Auto) 0.6 x10^3/uL (0.0-0.2) Test 02/22/17 07:23 Glucose (Fingerstick) 80 mg/dL (70-99) Microbiology 02/14/17 Blood Culture - Final, Complete NO GROWTH AFTER 5 DAYS 02/14/17 Gram Stain - Final, Complete 02/14/17 Urine Culture - Final, Complete 02/14/17 Urine Culture Result 1 ([place]) - Final, Complete Medications Current Medications Dextrose (Dextrose 50%-Water Syringe) 25 gm STK-MED ONCE IV ; Start 02/14/17 at 21:20; Stop 02/14/17 at 21:21; Status DC Sodium Chloride 2,040 ml @ 510 mls/hr Q4H IV Last administered on 02/14/17 21 :33; Start 02/14/17 at 21:33; Stop 02/14/17 at 22:05; Status DC Vancomycin HCl (Vanco Per Pharmacy) 1 each PRN DAILY PRN MC SEE COMMENTS Last administered on 02/17/17 07:34; Start 02/14/17 at 22:00; Stop 02/17/17 at 08:16 ; Status DC Levofloxacin/ Dextrose (Levaquin Per Pharmacy) 1 each PRN DAILY PRN MC SEE COMMENTS; Start 02/14/17 at 23:00; Stop 02/15/17 at 07:38; Status DC Vancomycin HCl 1.75 gm/Sodium Chloride 500 ml @ 250 mls/hr 1X ONCE IV Last administered on 02/14/17 22:21; Start 02/14/17 at 22:15; Stop 02/15/17 at 00:14 ; Status DC Sodium Chloride 1,000 ml @ 510 mls/hr Q1H58M IV ; Start 02/14/17 at 22:15; Stop 02/15/17 at 01:32; Status DC Levofloxacin/ Dextrose 100 ml @ 100 mls/hr Q48H IV Last administered on 22:58; Start 02/14/17 at 23:00; Stop 02/15/17 at 07:38; Status DC Dextrose (Dextrose 50%-Water Syringe) 25 gm 1X ONCE IV Last administered on 22:52; Start 02/14/17 at 23:00; Stop 02/14/17 at 23:01; Status DC Dextrose (Dextrose 50%-Water Syringe) 25 gm 1X ONCE IV ; Start 02/14/17 at 23: 00; Stop 02/14/17 at 23:01; Status DC Furosemide (Lasix) 40 mg 1X PRN PRN IV blood transfusion; Start 02/14/17 at 23: 00; Stop 02/15/17 at 22:59; Status DC Dopamine HCl/ Dextrose 250 ml @ 12.688 mls/ hr CONT PRN IV SEE I/O RECORD Last administered on 02/14/17 23:44; Start 02/14/17 at 23:15; Stop 02/20/17 at 10:19; Status DC Ondansetron HCl (Zofran) 4 mg PRN Q6HRS PRN IV NAUSEA/VOMITING Last administered on 02/21/17 17:42; Start 02/14/17 at 23:15 Famotidine (Pepcid) 10 mg BID IVP Last administered on 02/19/17 20:21; Start 02/15/17 at 09:00; Stop 02/20/17 at 12:02; Status DC Acetaminophen (Tylenol) 120 mg PRN Q6HRS PRN FL MILD PAIN / TEMP; Start at 23:15 Acetaminophen (Tylenol) 500 mg PRN Q6HRS PRN PO MILD PAIN / TEMP Last administered on 02/20/17 13:13; Start 02/14/17 at 23:15 Vancomycin HCl 1 each 1X ONCE MC ; Start 02/16/17 at 22:30; Stop 02/16/17 at 22 :30; Status DC Ondansetron HCl (Zofran) 4 mg PRN Q8HRS PRN IV NAUSEA/VOMITING; Start 02/14/17 at 23:45; Stop 02/15/17 at 23:44; Status DC Dextrose/Sodium Chloride 1,000 ml @ 125 mls/hr 1X ONCE IV ; Start 02/14/17 at 23:45; Stop 02/15/17 at 07:44; Status DC Piperacillin Sod/ Tazobactam Sod 2.25 gm/Sodium Chloride 50 ml @ 100 mls/hr Q6HRS IV Last administered on 02/20/17 05:51; Start 02/15/17 at 07:30; Stop at 10:03; Status DC Micafungin Sodium 100 mg/Dextrose 100 ml @ 100 mls/hr Q24H IV Last administered on 02/19/17 09:25; Start 02/15/17 at 08:00; Stop 02/20/17 at 10:03 ; Status DC Fentanyl Citrate (Fentanyl 2ml Vial) 50 mcg PRN Q2HR PRN IV PAIN Last administered on 02/18/17 20:52; Start 02/15/17 at 09:15; Stop 02/20/17 at 10:19 ; Status DC Morphine Sulfate 4 mg PRN Q2HR PRN IV PAIN Last administered on 02/20/17 06:05 ; Start 02/15/17 at 09:45; Stop 02/20/17 at 10:19; Status DC Sodium Chloride 1,000 ml @ 75 mls/hr [id number] IV Last administered on 17:42; Start 02/15/17 at 10:00; Stop 02/16/17 at 17:54; Status DC Phytonadione (Vitamin K Ampule) 10 mg 1X ONCE SQ Last administered on 11:35; Start 02/15/17 at 10:30; Stop 02/15/17 at 10:33; Status DC Desmopressin Acetate 20 mcg/ Sodium Chloride 55 ml @ 102 mls/hr 1X ONCE IV Last administered on 02/15/17 11:35; Start 02/15/17 at 11:00; Stop 02/15/17 at 11:32; Status DC Hydroxyurea (Hydrea) 500 mg QMWF PO Last administered on 02/20/17 16:11; Start 02/15/17 at 11:00 Lidocaine/Sodium Bicarbonate (Buffered Lidocaine 1%) 20 ml STK-MED ONCE IJ ; Start 02/15/17 at 11:23; Stop 02/15/17 at 11:24; Status DC Heparin Sodium/ Sodium Chloride 500 ml @ As Directed STK-MED ONCE .ROUTE ; Start 02/15/17 at 11:23; Stop 02/15/17 at 11:24; Status DC Heparin Sodium (Porcine) (Heparin Sodium) 10,000 unit STK-MED ONCE .ROUTE ; Start 02/15/17 at 11:49; Stop 02/15/17 at 11:50; Status DC Lidocaine/Sodium Bicarbonate (Buffered Lidocaine 1%) 3 ml 1X ONCE IJ Last administered on 02/15/17 12:14; Start 02/15/17 at 12:00; Stop 02/15/17 at 12:14 ; Status DC Heparin Sodium/ Sodium Chloride 60 unit 1X ONCE IV Last administered on 12:17; Start 02/15/17 at 12:00; Stop 02/15/17 at 12:14; Status DC Heparin Sodium (Porcine) (Heparin Sodium) 2,500 unit 1X ONCE INT CAT Last administered on 02/15/17 12:17; Start 02/15/17 at 12:00; Stop 02/15/17 at 12:14 ; Status DC Vancomycin HCl 1 each 1X ONCE MC Last administered on 02/16/17 05:00; Start 02/16/17 at 05:00; Stop 02/16/17 at 05:01; Status DC Sodium Chloride 1,000 ml @ 1,000 mls/hr Q1H PRN IV hypotension; Start 02/15/17 at 13:56; Stop 02/15/17 at 19:55; Status DC Sodium Chloride 1,000 ml @ 400 mls/hr Q2H30M PRN IV PATENCY; Start 02/15/17 at 13:56; Stop 02/16/17 at 01:55; Status DC Info (PHARMACY MONITORING -- do not chart) 1 each PRN DAILY PRN MC SEE COMMENTS ; Start 02/15/17 at 14:00; Status UNV Info (PHARMACY MONITORING -- do not chart) 1 each PRN DAILY PRN MC SEE COMMENTS ; Start 02/15/17 at 14:00; Stop 02/17/17 at 11:20; Status DC Albuterol Sulfate (Ventolin Neb Soln) 2.5 mg PRN Q4HRS PRN NEB SHORTNESS OF BREATH; Start 02/15/17 at 15:30; Stop 02/20/17 at 11:14; Status DC Vancomycin HCl 500 mg/Sodium Chloride 100 ml @ 100 mls/hr 1X ONCE IV Last administered on 02/16/17t 17:41; Start 02/16/17 at 16:00; Stop 02/16/17 at 16:59 ; Status DC Sodium Chloride 1,000 ml @ 1,000 mls/hr Q1H PRN IV hypotension; Start 02/16/17 at 13:41; Stop 02/16/17 at 19:40; Status DC Sodium Chloride 1,000 ml @ 400 mls/hr Q2H30M PRN IV PATENCY; Start 02/16/17 at 13:41; Stop 02/17/17 at 01:40; Status DC Info (PHARMACY MONITORING -- do not chart) 1 each PRN DAILY PRN MC SEE COMMENTS ; Start 02/16/17 at 13:45; Stop 02/17/17 at 11:20; Status DC Vancomycin HCl 500 mg/Sodium Chloride 100 ml @ 100 mls/hr 1X ONCE IV ; Start 02/17/17 at 15:00; Stop 02/17/17 at 15:00; Status DC Sodium Chloride 1,000 ml @ 1,000 mls/hr Q1H PRN IV hypotension; Start 02/17/17 at 09:24; Stop 02/17/17 at 15:23; Status DC Sodium Chloride (Normal Saline Flush) 10 ml 1X PRN PRN IV AP catheter pack; Start 02/17/17 at 09:30; Stop 02/18/17 at 09:29; Status DC Sodium Chloride (Normal Saline Flush) 10 ml 1X PRN PRN IV [employer] catheter pack; Start 02/17/17 at 09:30; Stop 02/18/17 at 09:29; Status DC Sodium Chloride 1,000 ml @ 400 mls/hr Q2H30M PRN IV PATENCY; Start 02/17/17 at 09:24; Stop 02/17/17 at 21:23; Status DC Info (PHARMACY MONITORING -- do not chart) 1 each PRN DAILY PRN MC SEE COMMENTS ; Start 02/17/17 at 09:30; Stop 02/20/17 at 10:29; Status DC Albumin Human 100 ml @ 100 mls/hr 1X STAT IV Last administered on 02/17/17t 09:49; Start 02/17/17 at 09:35; Stop 02/17/17 at 10:34; Status DC Albumin Human 100 ml @ 100 mls/hr 1X ONCE IV Last administered on 02/17/17 10:46; Start 02/17/17 at 10:45; Stop 02/17/17 at 11:44; Status DC Iohexol (Omnipaque 300 Mg/ml) 75 ml 1X ONCE IV ; Start 02/17/17 at 11:15; Stop 02/17/17 at 11:21; Status DC Info 1 each PRN DAILY PRN MC SEE COMMENTS Last administered on 02/19/17 11:38 ; Start 02/17/17 at 18:00; Stop 02/20/17 at 10:24; Status DC Sodium Chloride 90 meq/Potassium Chloride 50 meq/ Potassium Phosphate 13.6 mmol/ Magnesium Sulfate 10 meq/ Calcium Gluconate 10 meq/ Multivitamins 10 ml/Chromium / Copper/Manganese/ Seleni/Zn 1 ml/ Total Parenteral Nutrition/Amino Acids/ Dextrose/ Fat Emulsion Intravenous 1,512 ml @ 63 mls/hr TPN CONT IV Last administered on 02/18/17 22:02; Start 02/18/17 at 22:00; Stop 02/19/17 at 21:59 ; Status DC Iohexol (Omnipaque 300 Mg/ml) 75 ml 1X ONCE IV Last administered on 02/18/17 09:38; Start 02/18/17 at 09:30; Stop 02/18/17 at 09:31; Status DC Sodium Chloride 1,000 ml @ 1,000 mls/hr Q1H PRN IV hypotension; Start 02/18/17 at 10:09; Stop 02/18/17 at 16:08; Status DC Albumin Human 200 ml @ 200 mls/hr 1X PRN PRN IV Hypotension; Start 02/18/17 at 10:15; Stop 02/18/17 at 16:14; Status DC Sodium Chloride 1,000 ml @ 400 mls/hr Q2H30M PRN IV PATENCY; Start 02/18/17 at 10:09; Stop 02/18/17 at 22:08; Status DC Info (PHARMACY MONITORING -- do not chart) 1 each PRN DAILY PRN MC SEE COMMENTS ; Start 02/18/17 at 10:15; Status UNV Info (PHARMACY MONITORING -- do not chart) 1 each PRN DAILY PRN MC SEE COMMENTS ; Start 02/18/17 at 10:15; Status UNV Potassium Phosphate 13.6 mmol/Sodium Chloride 104.5333 ml @ 52.267 m... 1X ONCE IV Last administered on 02/19/17 09:25; Start 02/19/17 at 09:00; Stop at 10:59; Status DC Sodium Chloride 90 meq/Potassium Chloride 50 meq/ Potassium Phosphate 13.6 mmol/ Magnesium Sulfate 10 meq/ Calcium Gluconate 10 meq/ Multivitamins 10 ml/Chromium / Copper/Manganese/ Seleni/Zn 1 ml/ Total Parenteral Nutrition/Amino Acids/ Dextrose/ Fat Emulsion Intravenous 1,512 ml @ 63 mls/hr TPN CONT IV Last administered on 02/19/17 22:10; Start 02/19/17 at 22:00; Stop 02/20/17 at 10:19 ; Status DC Sodium Chloride 1,000 ml @ 1,000 mls/hr Q1H PRN IV hypotension; Start 02/20/17 at 09:55; Stop 02/20/17 at 10:19; Status DC Sodium Chloride 1,000 ml @ 400 mls/hr Q2H30M PRN IV PATENCY; Start 02/20/17 at 09:55; Stop 02/20/17 at 10:19; Status DC Info (PHARMACY MONITORING -- do not chart) 1 each PRN DAILY PRN MC SEE COMMENTS ; Start 02/20/17 at 10:00; Stop 02/20/17 at 10:04; Status DC Info (PHARMACY MONITORING -- do not chart) 1 each PRN DAILY PRN MC SEE COMMENTS ; Start 02/20/17 at 10:00 Allopurinol (Zyloprim) 300 mg DAILY PO Last administered on 02/22/17 07:56; Start 02/20/17 at 11:00 Aspirin (Ecotrin) 81 mg DAILY PO Last administered on 02/22/17 07:57; Start at 11:00 Carvedilol (Coreg) 12.5 mg BIDWMEALS PO Last administered on 02/22/17 07:57; Start 02/20/17 at 12:00 Paricalcitol (Zemplar) 1 mcg DAILY PO Last administered on 02/22/17 07:57; Start 02/20/17 at 11:00 Sevelamer Carbonate (Renvela) 1,600 mg TIDWMEALS PO Last administered on 07:57; Start 02/20/17 at 12:00 Sodium Bicarbonate (Sodium Bicarbonate) 850 mg BID PO Last administered on 02/22 07:58; Start 02/20/17 at 11:00 Non-Formulary Medication 2 puff PRN Q4HRS PRN INH SHORTNESS OF BREATH; Start at 10:30; Stop 02/20/17 at 11:17; Status DC Non-Formulary Medication 1 puff Q12HR IH ; Start 02/20/17 at 21:00; Stop at 21:00; Status DC Pantoprazole Sodium (Protonix) 40 mg DAILYAC PO Last administered on 02/22/17 07:56; Start 02/20/17 at 11:30 Insulin Detemir (Levemir) 20 units QHS SQ Last administered on 02/21/17 21:03 ; Start 02/20/17 at 21:00 Amlodipine Besylate (Norvasc) 10 mg DAILY PO Last administered on 02/22/17 07: 57; Start 02/20/17 at 11:00 Albuterol Sulfate (Ventolin Neb Soln) 2.5 mg PRN Q4HRS PRN NEB SHORTNESS OF BREATH; Start 02/20/17 at 11:15 Albuterol Sulfate (Ventolin Neb Soln) 2.5 mg Q6HRS NEB Last administered on 07:34; Start 02/20/17 at 12:00 Budesonide (Pulmicort) 0.5 mg RTBID NEB Last administered on 02/22/17 07:34; Start 02/20/17 at 20:00 Acetaminophen/ Hydrocodone Bitart (Lortab 5/325) 1 tab PRN Q6HRS PRN PO PAIN Last administered on 02/21/17 16:05; Start 02/20/17 at 15:15 Heparin Sodium (Porcine) (Heparin Sodium) 10,000 unit STK-MED ONCE .ROUTE ; Start 02/21/17 at 09:11; Stop 02/21/17 at 09:12; Status DC Lidocaine/ Epinephrine (Xylocaine 1%-Epi 1:100,000) 20 ml STK-MED ONCE .ROUTE ; Start 02/21/17 at 09:11; Stop 02/21/17 at 09:12; Status DC Heparin Sodium/ Sodium Chloride 500 ml @ As Directed STK-MED ONCE .ROUTE ; Start 02/21/17 at 09:11; Stop 02/21/17 at 09:12; Status DC Cefazolin Sodium 50 ml @ As Directed STK-MED ONCE IV ; Start 02/21/17 at 09:30; Stop 02/21/17 at 09:31; Status DC Fentanyl Citrate (Fentanyl 2ml Vial) 100 mcg STK-MED ONCE .ROUTE ; Start at 09:31; Stop 02/21/17 at 09:32; Status DC Midazolam HCl (Versed) 2 mg STK-MED ONCE .ROUTE ; Start 02/21/17 at 09:31; Stop 02/21/17 at 09:32; Status DC Heparin Sodium/ Sodium Chloride 1,000 unit 1X ONCE IART Last administered on 10:06; Start 02/21/17 at 10:00; Stop 02/21/17 at 10:01; Status DC Midazolam HCl (Versed) 2 mg 1X ONCE IV Last administered on 02/21/17 10:07; Start 02/21/17 at 10:00; Stop 02/21/17 at 10:01; Status DC Fentanyl Citrate (Fentanyl 2ml Vial) 100 mcg 1X ONCE IV Last administered on 10:07; Start 02/21/17 at 10:00; Stop 02/21/17 at 10:01; Status DC Lidocaine/ Epinephrine (Xylocaine 1%-Epi 1:100,000) 20 ml 1X ONCE IJ Last administered on 02/21/17 10:06; Start 02/21/17 at 10:00; Stop 02/21/17 at 10:01 ; Status DC Cefazolin Sodium 50 ml @ 100 mls/hr 1X ONCE IV Last administered on 10:08; Start 02/21/17 at 10:00; Stop 02/21/17 at 10:29; Status DC Heparin Sodium (Porcine) (Heparin Sodium) 2,600 unit 1X ONCE INT CAT Last administered on 02/21/17 10:06; Start 02/21/17 at 10:00; Stop 02/21/17 at 10:01 ; Status DC Active Scripts Active Reported Lantus Solostar (Insulin Glargine,Hum.rec.anlog) 100 Unit/1 Ml Insuln.pen 22 Unit SQ QHS Droxia (Hydroxyurea) 200 Mg Capsule 200 Mg PO DAILY Feosol (Ferrous Sulfate) 325 Mg Tablet 325 Mg PO DAILY Coreg (Carvedilol) 12.5 Mg Tablet 1 Tab PO BID Bumetanide 2 Mg Tablet 2 Tab PO BID Aspir 81 (Aspirin) 81 Mg Tablet.dr 1 Tab PO DAILY Allopurinol 300 Mg Tablet 1 Tab PO DAILY Advair 250-50 Diskus (Fluticasone/Salmeterol) 1 Each Disk.w.dev 1 Puff IH Q12HR Zetia (Ezetimibe) 10 Mg Tablet 0.5 Tab PO DAILY Zemplar (Paricalcitol) 1 Mcg Capsule 1 Cap PO DAILY Sodium Bicarbonate 650 Mg Tablet 850 Mg PO BID Sensipar (Cinacalcet Hcl) 30 Mg Tablet 30 Mg PO QODAY Renvela (Sevelamer Carbonate) 800 Mg Tablet 2 Tab PO TID Proair Hfa Inhaler (Albuterol Sulfate) 8.5 Gm Hfa.aer.ad 2 Puff INH PRN Q4HRS PRN Omeprazole 40 Mg Capsule.dr 1 Cap PO DAILY Percocet 5-325 Mg Tablet (Oxycodone/Acetaminophen) 1 Each Tablet 1-2 Tab PO PRN Q6HRS PRN Novolog Flexpen (Insulin Aspart) 100 Unit/1 Ml Insuln.pen 15 Unit SQ DAILY Novolog Flexpen (Insulin Aspart) 100 Unit/1 Ml Insuln.pen 12 Unit SQ BIDACBL Norvasc (Amlodipine Besylate) 10 Mg Tablet 10 Mg PO DAILY Miralax (Polyethylene Glycol 3350) 17 Gm Powd.pack 1 Packet PO DAILY Lipitor (Atorvastatin Calcium) 40 Mg Tablet 1 Tab PO DAILY Lidocaine 1 Each Adh..patch 1 Each TP DAILY Vitals/I & O Vital Sign - Last 24 Hours 02/21/17 02/21/17 02/21/17 02/21/17 10:30 10:39 10:40 10:45 Temp 97.5 97.5 Pulse 108 118 118 115 Resp 18 B/P (MAP) 166/95 (118) 166/95 166/95 161/101 (121) Pulse Ox 97 O2 Delivery Room Air 02/21/17 02/21/17 02/21/1719/17 10:46 11:00 11:15 11:45 Temp Pulse 112 113 110 Resp B/P (MAP) 163/109 (127) 166/105 (125) 160/102 (121) Pulse Ox 96 O2 Delivery Room Air 02/21/17 02/21/17 02/21/17 02/21/17 12:15 12:51 13:15 15:00 Temp 98.2 98.2 Pulse 104 101 104 Resp 16 B/P (MAP) 161/92 (115) 145/84 (104) 140/89 (106) Pulse Ox 94 O2 Delivery Room Air Room Air 02/21/17 02/21/17 02/21/17 02/21/17 16:05 16:05 17:04 19:20 Temp 97.8 97.8 Pulse 104 91 Resp 20 B/P (MAP) 140/89 137/78 (97) Pulse Ox 95 O2 Delivery Room Air Room Air Room Air 02/21/17 02/21/17 02/21/17 02/21/17 19:56 19:57 20:00 23:20 Temp 97.9 97.9 Pulse 97 Resp 20 B/P (MAP) 129/75 (93) Pulse Ox 96 96 95 O2 Delivery Room Air Room Air Room Air Room Air 02/21/17 02/22/17 02/22/17 02/22/17 23:34 03:20 07:00 07:34 Temp 97.5 97.5 97.5 97.5 Pulse 90 96 Resp 20 20 B/P (MAP) 141/83 (102) 152/90 (110) Pulse Ox 94 98 98 O2 Delivery Room Air Room Air Room Air Room Air 02/22/17 02/22/17 02/22/17 07:57 07:57 08:00 Pulse 96 96 B/P (MAP) 152/90 152/90 O2 Delivery Room Air O2 Flow Rate 2.0 Nutrition Consultation Dietary Evaluation: Recommendations by RD: Increase Calorie Intake Comments: TF cx, TPN d/c diet per [employer] Expected Outcomes/Goals: to meet > 75% est nutr needs via po intake Interpretation of weight loss: >1-2% in 1 week Malnutrition Findings: Food and Nutrition Intake (Mod: <75% est energy req 7days Weight Status: Appropriate ALPESH BROWN MD Feb 22, 2017 10:24
[2017-02-22 11:00] VITALS: BP 112/63
[2017-02-22] MEDS ORDERED: DRON2.5C2 PO (11:50)
[2017-02-22] MEDS ORDERED: OXYC-323 PO (11:50)
[2017-02-22] MEDS ORDERED: IV NORMAL SALINE 1000ML BAG 1,000 ML IV PRN ×2 (11:54)
[2017-02-22] MEDS ORDERED: DIALYSIS PATIENT. MC PRN (12:00)
--- NOTE | 2017-02-22 12:31 | PDOC ---
SURGICAL PROGRESS NOTE Subjective Pt without new c/o, sisters present Vital Signs Vital Signs Date Time Temp Pulse Resp B/P (MAP) Pulse Ox O2 Delivery O2 Flow Rate FiO2 02/22/17 11:38 Room Air 02/22/17 11:00 97.8 94 20 112/63 (79) 95 97.8 02/22/17 08:00 2.0 General: Alert, Cooperative, No acute distress Abdomen: Soft, No tenderness Labs Laboratory Tests Test 02/20/17 14:15 02/20/17 17:37 02/20/17 20:57 02/21/17 03:25 Glucose (Fingerstick) 301 mg/dL (70-99) 308 mg/dL (70-99) 308 mg/dL (70-99) White Blood Count 64.6 x10^3/uL (4.0-11.0) Red Blood Count 3.09 x10^6/uL (3.50-5.40) Hemoglobin 8.8 g/dL (12.0-15.5) Hematocrit 27.6 % (36.0-47.0) Mean Corpuscular Volume 89 fL (79-100) Mean Corpuscular Hemoglobin 28 pg (25-35) Mean Corpuscular Hemoglobin Concent 32 g/dL (31-37) Red Cell Distribution Width 17.4 % (11.5-14.5) Platelet Count 255 x10^3/uL (140-400) Neutrophils (%) (Auto) 96 % (31-73) Lymphocytes (%) (Auto) 1 % (24-48) Monocytes (%) (Auto) 1 % (0-9) Eosinophils (%) (Auto) 1 % (0-3) Basophils (%) (Auto) 1 % (0-3) Neutrophils # (Auto) 62.2 x10^3uL (1.8-7.7) Lymphocytes # (Auto) 0.7 x10^3/uL (1.0-4.8) Monocytes # (Auto) 0.7 x10^3/uL (0.0-1.1) Eosinophils # (Auto) 0.7 x10^3/uL (0.0-0.7) Basophils # (Auto) 0.4 x10^3/uL (0.0-0.2) Prothrombin Time 13.4 SEC (11.7-14.0) Prothromb Time International Ratio 1.1 (0.8-1.1) Activated Partial Thromboplast Time 35 SEC (24-38) Sodium Level 138 mmol/L (136-145) Potassium Level 3.8 mmol/L (3.5-5.1) Chloride Level 100 mmol/L (98-107) Carbon Dioxide Level 31 mmol/L (21-32) Anion Gap 7 (6-14) Blood Urea Nitrogen 21 mg/dL (7-20) Creatinine 2.4 mg/dL (0.6-1.0) Estimated GFR (Cockcroft-Gault) 24.1 Glucose Level 198 mg/dL (70-99) Calcium Level 9.5 mg/dL (8.5-10.1) Phosphorus Level 2.3 mg/dL (2.6-4.7) Magnesium Level 2.0 mg/dL (1.8-2.4) Total Bilirubin 1.2 mg/dL (0.2-1.0) Direct Bilirubin 0.4 mg/dL (0.0-0.2) Aspartate Amino Transf (AST/SGOT) 43 U/L (15-37) Alanine Aminotransferase (ALT/SGPT) 10 U/L (14-59) Alkaline Phosphatase 183 U/L (46-116) Total Protein 4.9 g/dL (6.4-8.2) Albumin 2.1 g/dL (3.4-5.0) Test 02/21/17 07:33 02/21/17 11:51 02/21/17 17:19 02/21/17 20:45 Glucose (Fingerstick) 177 mg/dL (70-99) 172 mg/dL (70-99) 224 mg/dL (70-99) 231 mg/dL (70-99) Test 02/22/17 05:15 02/22/17 07:23 02/22/17 11:09 White Blood Count 72.4 x10^3/uL (4.0-11.0) Red Blood Count 3.29 x10^6/uL (3.50-5.40) Hemoglobin 9.4 g/dL (12.0-15.5) Hematocrit 29.1 % (36.0-47.0) Mean Corpuscular Volume 88 fL (79-100) Mean Corpuscular Hemoglobin 29 pg (25-35) Mean Corpuscular Hemoglobin Concent 32 g/dL (31-37) Red Cell Distribution Width 17.1 % (11.5-14.5) Platelet Count 297 x10^3/uL (140-400) Neutrophils (%) (Auto) 96 % (31-73) Lymphocytes (%) (Auto) 1 % (24-48) Monocytes (%) (Auto) 1 % (0-9) Eosinophils (%) (Auto) 1 % (0-3) Basophils (%) (Auto) 1 % (0-3) Neutrophils # (Auto) 69.5 x10^3uL (1.8-7.7) Lymphocytes # (Auto) 0.9 x10^3/uL (1.0-4.8) Monocytes # (Auto) 0.8 x10^3/uL (0.0-1.1) Eosinophils # (Auto) 0.5 x10^3/uL (0.0-0.7) Basophils # (Auto) 0.6 x10^3/uL (0.0-0.2) Glucose (Fingerstick) 80 mg/dL (70-99) 123 mg/dL (70-99) Laboratory Tests Test 02/21/17 17:19 02/21/17 20:45 02/22/17 05:15 02/22/17 07:23 Glucose (Fingerstick) 224 mg/dL (70-99) 231 mg/dL (70-99) 80 mg/dL (70-99) White Blood Count 72.4 x10^3/uL (4.0-11.0) Red Blood Count 3.29 x10^6/uL (3.50-5.40) Hemoglobin 9.4 g/dL (12.0-15.5) Hematocrit 29.1 % (36.0-47.0) Mean Corpuscular Volume 88 fL (79-100) Mean Corpuscular Hemoglobin 29 pg (25-35) Mean Corpuscular Hemoglobin Concent 32 g/dL (31-37) Red Cell Distribution Width 17.1 % (11.5-14.5) Platelet Count 297 x10^3/uL (140-400) Neutrophils (%) (Auto) 96 % (31-73) Lymphocytes (%) (Auto) 1 % (24-48) Monocytes (%) (Auto) 1 % (0-9) Eosinophils (%) (Auto) 1 % (0-3) Basophils (%) (Auto) 1 % (0-3) Neutrophils # (Auto) 69.5 x10^3uL (1.8-7.7) Lymphocytes # (Auto) 0.9 x10^3/uL (1.0-4.8) Monocytes # (Auto) 0.8 x10^3/uL (0.0-1.1) Eosinophils # (Auto) 0.5 x10^3/uL (0.0-0.7) Basophils # (Auto) 0.6 x10^3/uL (0.0-0.2) Test 02/22/17 11:09 Glucose (Fingerstick) 123 mg/dL (70-99) Problem List Problems Medical Problems: (1) Anemia Status: Acute (2) Coagulopathy Status: Acute (3) Congestive heart failure Status: Acute (4) End stage renal disease Status: Acute (5) Hypoglycemia Status: Acute (6) Hypotension Status: Acute (7) Myelodysplastic syndrome Status: Acute Assessment/Plan abd hematoma OK to tx to rehab consider elective removal of PD cath, given concern for risk of infection, if not used Problems: FREDY DENNIS MD Feb 22, 2017 12:31
--- NOTE | 2017-02-22 13:31 | PDOC ---
Dialysis Progress Note Dialysis Note Dialysis Note Seen on Hemodialysis, tolerating treatment Okay so far Vitals on Hemodialysis: 115/67 92 (on monitor) afeb General Appearance: Awake: Alert Oriented x 3 Neck: No JVD or JVP Chest: CTA Anibal Heart: S1 S2 - not tachy to auscultation Abdomen - Soft NTND Extremities - No Edema ESRD : Dialysis as below F 180 NR 3.0 Hrs 3 K 2.5 Ca 140 Na 30 HC03 Qb 350 + Qd 500+ Heparin 0 Units Uf 1- 2 Kgs or to dry weight as tolerated May give 25-50 gms of 25% Albumin if needed to maintain Hemodynamic stability Treatment plan reviewed and discussed with terminal clerk Vitals Vital Signs Vital Signs Date Time Temp Pulse Resp B/P (MAP) Pulse Ox O2 Delivery O2 Flow Rate FiO2 02/22/17 11:38 Room Air 02/22/17 11:00 97.8 94 20 112/63 (79) 95 97.8 02/22/17 08:00 2.0 Labs Last Labs Laboratory Tests Test 02/20/17 14:15 02/20/17 17:37 02/20/17 20:57 02/21/17 03:25 Glucose (Fingerstick) 301 mg/dL (70-99) 308 mg/dL (70-99) 308 mg/dL (70-99) White Blood Count 64.6 x10^3/uL (4.0-11.0) Red Blood Count 3.09 x10^6/uL (3.50-5.40) Hemoglobin 8.8 g/dL (12.0-15.5) Hematocrit 27.6 % (36.0-47.0) Mean Corpuscular Volume 89 fL (79-100) Mean Corpuscular Hemoglobin 28 pg (25-35) Mean Corpuscular Hemoglobin Concent 32 g/dL (31-37) Red Cell Distribution Width 17.4 % (11.5-14.5) Platelet Count 255 x10^3/uL (140-400) Neutrophils (%) (Auto) 96 % (31-73) Lymphocytes (%) (Auto) 1 % (24-48) Monocytes (%) (Auto) 1 % (0-9) Eosinophils (%) (Auto) 1 % (0-3) Basophils (%) (Auto) 1 % (0-3) Neutrophils # (Auto) 62.2 x10^3uL (1.8-7.7) Lymphocytes # (Auto) 0.7 x10^3/uL (1.0-4.8) Monocytes # (Auto) 0.7 x10^3/uL (0.0-1.1) Eosinophils # (Auto) 0.7 x10^3/uL (0.0-0.7) Basophils # (Auto) 0.4 x10^3/uL (0.0-0.2) Prothrombin Time 13.4 SEC (11.7-14.0) Prothromb Time International Ratio 1.1 (0.8-1.1) Activated Partial Thromboplast Time 35 SEC (24-38) Sodium Level 138 mmol/L (136-145) Potassium Level 3.8 mmol/L (3.5-5.1) Chloride Level 100 mmol/L (98-107) Carbon Dioxide Level 31 mmol/L (21-32) Anion Gap 7 (6-14) Blood Urea Nitrogen 21 mg/dL (7-20) Creatinine 2.4 mg/dL (0.6-1.0) Estimated GFR (Cockcroft-Gault) 24.1 Glucose Level 198 mg/dL (70-99) Calcium Level 9.5 mg/dL (8.5-10.1) Phosphorus Level 2.3 mg/dL (2.6-4.7) Magnesium Level 2.0 mg/dL (1.8-2.4) Total Bilirubin 1.2 mg/dL (0.2-1.0) Direct Bilirubin 0.4 mg/dL (0.0-0.2) Aspartate Amino Transf (AST/SGOT) 43 U/L (15-37) Alanine Aminotransferase (ALT/SGPT) 10 U/L (14-59) Alkaline Phosphatase 183 U/L (46-116) Total Protein 4.9 g/dL (6.4-8.2) Albumin 2.1 g/dL (3.4-5.0) Test 02/21/17 07:33 02/21/17 11:51 02/21/17 17:19 02/21/17 20:45 Glucose (Fingerstick) 177 mg/dL (70-99) 172 mg/dL (70-99) 224 mg/dL (70-99) 231 mg/dL (70-99) Test 02/22/17 05:15 02/22/17 07:23 02/22/17 11:09 White Blood Count 72.4 x10^3/uL (4.0-11.0) Red Blood Count 3.29 x10^6/uL (3.50-5.40) Hemoglobin 9.4 g/dL (12.0-15.5) Hematocrit 29.1 % (36.0-47.0) Mean Corpuscular Volume 88 fL (79-100) Mean Corpuscular Hemoglobin 29 pg (25-35) Mean Corpuscular Hemoglobin Concent 32 g/dL (31-37) Red Cell Distribution Width 17.1 % (11.5-14.5) Platelet Count 297 x10^3/uL (140-400) Neutrophils (%) (Auto) 96 % (31-73) Lymphocytes (%) (Auto) 1 % (24-48) Monocytes (%) (Auto) 1 % (0-9) Eosinophils (%) (Auto) 1 % (0-3) Basophils (%) (Auto) 1 % (0-3) Neutrophils # (Auto) 69.5 x10^3uL (1.8-7.7) Lymphocytes # (Auto) 0.9 x10^3/uL (1.0-4.8) Monocytes # (Auto) 0.8 x10^3/uL (0.0-1.1) Eosinophils # (Auto) 0.5 x10^3/uL (0.0-0.7) Basophils # (Auto) 0.6 x10^3/uL (0.0-0.2) Glucose (Fingerstick) 80 mg/dL (70-99) 123 mg/dL (70-99) Laboratory Tests Test 02/21/17 17:19 02/21/17 20:45 02/22/17 05:15 02/22/17 07:23 Glucose (Fingerstick) 224 mg/dL (70-99) 231 mg/dL (70-99) 80 mg/dL (70-99) White Blood Count 72.4 x10^3/uL (4.0-11.0) Red Blood Count 3.29 x10^6/uL (3.50-5.40) Hemoglobin 9.4 g/dL (12.0-15.5) Hematocrit 29.1 % (36.0-47.0) Mean Corpuscular Volume 88 fL (79-100) Mean Corpuscular Hemoglobin 29 pg (25-35) Mean Corpuscular Hemoglobin Concent 32 g/dL (31-37) Red Cell Distribution Width 17.1 % (11.5-14.5) Platelet Count 297 x10^3/uL (140-400) Neutrophils (%) (Auto) 96 % (31-73) Lymphocytes (%) (Auto) 1 % (24-48) Monocytes (%) (Auto) 1 % (0-9) Eosinophils (%) (Auto) 1 % (0-3) Basophils (%) (Auto) 1 % (0-3) Neutrophils # (Auto) 69.5 x10^3uL (1.8-7.7) Lymphocytes # (Auto) 0.9 x10^3/uL (1.0-4.8) Monocytes # (Auto) 0.8 x10^3/uL (0.0-1.1) Eosinophils # (Auto) 0.5 x10^3/uL (0.0-0.7) Basophils # (Auto) 0.6 x10^3/uL (0.0-0.2) Test 02/22/17 11:09 Glucose (Fingerstick) 123 mg/dL (70-99) Assessment Assessment Problems Medical Problems: (1) Anemia Status: Acute (2) Coagulopathy Status: Acute (3) Congestive heart failure Status: Acute (4) End stage renal disease Status: Acute (5) Hypoglycemia Status: Acute (6) Hypotension Status: Acute (7) Myelodysplastic syndrome Status: Acute Problems: Plan Plan of Care Problems Medical Problems: (1) Anemia Status: Acute (2) Coagulopathy Status: Acute (3) Congestive heart failure Status: Acute (4) End stage renal disease Status: Acute (5) Hypoglycemia Status: Acute (6) Hypotension Status: Acute (7) Myelodysplastic syndrome Status: Acute MARJAN GRANT MD Feb 22, 2017 13:31
--- NOTE | 2017-02-22 13:53 | PDOC ---
PULMONARY PROGRESS NOTES Subjective off 02, no sob better, no cough, no pain Vitals Vital Signs Date Time Temp Pulse Resp B/P (MAP) Pulse Ox O2 Delivery O2 Flow Rate FiO2 02/22/17 11:38 Room Air 02/22/17 11:00 97.8 94 20 112/63 (79) 95 97.8 02/22/17 08:00 2.0 ROS: No Nausea, No Chest Pain, No Abdominal Pain, No Increase Cough General: Alert HEENT: Other (nc at perrl nose throat clear) Lungs: Clear Cardiovascular: S1, S2 Abdomen: Soft, Other (tender) Neuro Exam: Alert, Oriented Extremities: No Edema Skin: Warm Labs Laboratory Tests Test 02/20/17 14:15 02/20/17 17:37 02/20/17 20:57 02/21/17 03:25 Glucose (Fingerstick) 301 mg/dL (70-99) 308 mg/dL (70-99) 308 mg/dL (70-99) White Blood Count 64.6 x10^3/uL (4.0-11.0) Red Blood Count 3.09 x10^6/uL (3.50-5.40) Hemoglobin 8.8 g/dL (12.0-15.5) Hematocrit 27.6 % (36.0-47.0) Mean Corpuscular Volume 89 fL (79-100) Mean Corpuscular Hemoglobin 28 pg (25-35) Mean Corpuscular Hemoglobin Concent 32 g/dL (31-37) Red Cell Distribution Width 17.4 % (11.5-14.5) Platelet Count 255 x10^3/uL (140-400) Neutrophils (%) (Auto) 96 % (31-73) Lymphocytes (%) (Auto) 1 % (24-48) Monocytes (%) (Auto) 1 % (0-9) Eosinophils (%) (Auto) 1 % (0-3) Basophils (%) (Auto) 1 % (0-3) Neutrophils # (Auto) 62.2 x10^3uL (1.8-7.7) Lymphocytes # (Auto) 0.7 x10^3/uL (1.0-4.8) Monocytes # (Auto) 0.7 x10^3/uL (0.0-1.1) Eosinophils # (Auto) 0.7 x10^3/uL (0.0-0.7) Basophils # (Auto) 0.4 x10^3/uL (0.0-0.2) Prothrombin Time 13.4 SEC (11.7-14.0) Prothromb Time International Ratio 1.1 (0.8-1.1) Activated Partial Thromboplast Time 35 SEC (24-38) Sodium Level 138 mmol/L (136-145) Potassium Level 3.8 mmol/L (3.5-5.1) Chloride Level 100 mmol/L (98-107) Carbon Dioxide Level 31 mmol/L (21-32) Anion Gap 7 (6-14) Blood Urea Nitrogen 21 mg/dL (7-20) Creatinine 2.4 mg/dL (0.6-1.0) Estimated GFR (Cockcroft-Gault) 24.1 Glucose Level 198 mg/dL (70-99) Calcium Level 9.5 mg/dL (8.5-10.1) Phosphorus Level 2.3 mg/dL (2.6-4.7) Magnesium Level 2.0 mg/dL (1.8-2.4) Total Bilirubin 1.2 mg/dL (0.2-1.0) Direct Bilirubin 0.4 mg/dL (0.0-0.2) Aspartate Amino Transf (AST/SGOT) 43 U/L (15-37) Alanine Aminotransferase (ALT/SGPT) 10 U/L (14-59) Alkaline Phosphatase 183 U/L (46-116) Total Protein 4.9 g/dL (6.4-8.2) Albumin 2.1 g/dL (3.4-5.0) Test 02/21/17 07:33 02/21/17 11:51 02/21/17 17:19 02/21/17 20:45 Glucose (Fingerstick) 177 mg/dL (70-99) 172 mg/dL (70-99) 224 mg/dL (70-99) 231 mg/dL (70-99) Test 02/22/17 05:15 02/22/17 07:23 02/22/17 11:09 White Blood Count 72.4 x10^3/uL (4.0-11.0) Red Blood Count 3.29 x10^6/uL (3.50-5.40) Hemoglobin 9.4 g/dL (12.0-15.5) Hematocrit 29.1 % (36.0-47.0) Mean Corpuscular Volume 88 fL (79-100) Mean Corpuscular Hemoglobin 29 pg (25-35) Mean Corpuscular Hemoglobin Concent 32 g/dL (31-37) Red Cell Distribution Width 17.1 % (11.5-14.5) Platelet Count 297 x10^3/uL (140-400) Neutrophils (%) (Auto) 96 % (31-73) Lymphocytes (%) (Auto) 1 % (24-48) Monocytes (%) (Auto) 1 % (0-9) Eosinophils (%) (Auto) 1 % (0-3) Basophils (%) (Auto) 1 % (0-3) Neutrophils # (Auto) 69.5 x10^3uL (1.8-7.7) Lymphocytes # (Auto) 0.9 x10^3/uL (1.0-4.8) Monocytes # (Auto) 0.8 x10^3/uL (0.0-1.1) Eosinophils # (Auto) 0.5 x10^3/uL (0.0-0.7) Basophils # (Auto) 0.6 x10^3/uL (0.0-0.2) Glucose (Fingerstick) 80 mg/dL (70-99) 123 mg/dL (70-99) Laboratory Tests Test 02/21/17 17:19 02/21/17 20:45 02/22/17 05:15 02/22/17 07:23 Glucose (Fingerstick) 224 mg/dL (70-99) 231 mg/dL (70-99) 80 mg/dL (70-99) White Blood Count 72.4 x10^3/uL (4.0-11.0) Red Blood Count 3.29 x10^6/uL (3.50-5.40) Hemoglobin 9.4 g/dL (12.0-15.5) Hematocrit 29.1 % (36.0-47.0) Mean Corpuscular Volume 88 fL (79-100) Mean Corpuscular Hemoglobin 29 pg (25-35) Mean Corpuscular Hemoglobin Concent 32 g/dL (31-37) Red Cell Distribution Width 17.1 % (11.5-14.5) Platelet Count 297 x10^3/uL (140-400) Neutrophils (%) (Auto) 96 % (31-73) Lymphocytes (%) (Auto) 1 % (24-48) Monocytes (%) (Auto) 1 % (0-9) Eosinophils (%) (Auto) 1 % (0-3) Basophils (%) (Auto) 1 % (0-3) Neutrophils # (Auto) 69.5 x10^3uL (1.8-7.7) Lymphocytes # (Auto) 0.9 x10^3/uL (1.0-4.8) Monocytes # (Auto) 0.8 x10^3/uL (0.0-1.1) Eosinophils # (Auto) 0.5 x10^3/uL (0.0-0.7) Basophils # (Auto) 0.6 x10^3/uL (0.0-0.2) Test 02/22/17 11:09 Glucose (Fingerstick) 123 mg/dL (70-99) Medications Active Scripts Medications Dose Route/Sig Max Daily Dose Days Date Category Lantus Solostar (Insulin Glargine,Hum.rec.anlog) 100 Unit/1 Ml Insuln.pen 22 Unit SQ QHS 02/15/17 Reported Droxia (Hydroxyurea) 200 Mg Capsule 200 Mg PO DAILY 02/15/17 Reported Feosol (Ferrous Sulfate) 325 Mg Tablet 325 Mg PO DAILY 02/15/17 Reported Coreg (Carvedilol) 12.5 Mg Tablet 1 Tab PO BID 02/15/17 Reported Bumetanide 2 Mg Tablet 2 Tab PO BID 02/15/17 Reported Aspir 81 (Aspirin) 81 Mg Tablet.dr 1 Tab PO DAILY 02/15/17 Reported Allopurinol 300 Mg Tablet 1 Tab PO DAILY 02/15/17 Reported Advair 250-50 Diskus (Fluticasone/Salmeterol) 1 Each Disk.w.dev 1 Puff IH Q12HR 02/15/17 Reported Zetia (Ezetimibe) 10 Mg Tablet 0.5 Tab PO DAILY 02/15/17 Reported Zemplar (Paricalcitol) 1 Mcg Capsule 1 Cap PO DAILY 02/15/17 Reported Sodium Bicarbonate 650 Mg Tablet 850 Mg PO BID 02/15/17 Reported Sensipar (Cinacalcet Hcl) 30 Mg Tablet 30 Mg PO QODAY 02/15/17 Reported Renvela (Sevelamer Carbonate) 800 Mg Tablet 2 Tab PO TID 02/15/17 Reported Proair Hfa Inhaler (Albuterol Sulfate) 8.5 Gm Hfa.aer.ad 2 Puff INH PRN Q4HRS PRN 02/15/17 Reported Omeprazole 40 Mg Capsule.dr 1 Cap PO DAILY 02/15/17 Reported Percocet 5-325 Mg Tablet (Oxycodone/Acetaminophen) 1 Each Tablet 1-2 Tab PO PRN Q6HRS PRN 02/15/17 Reported Novolog Flexpen (Insulin Aspart) 100 Unit/1 Ml Insuln.pen 15 Unit SQ DAILY 02/15/17 Reported Novolog Flexpen (Insulin Aspart) 100 Unit/1 Ml Insuln.pen 12 Unit SQ BIDACBL 02/15/17 Reported Norvasc (Amlodipine Besylate) 10 Mg Tablet 10 Mg PO DAILY 02/15/17 Reported Miralax (Polyethylene Glycol 3350) 17 Gm Powd.pack 1 Packet PO DAILY 02/15/17 Reported Lipitor (Atorvastatin Calcium) 40 Mg Tablet 1 Tab PO DAILY 02/15/17 Reported Lidocaine 1 Each Adh..patch 1 Each TP DAILY 02/15/17 Reported Impression . 1. Abnormal CT of the abdomen revealing some basilar opacities, suspect mostly atelectasis. Intraabdominal hematoma.?infected/?splenic abscess,? hepatic abscess 2. Asthma. 3. Sepsis present upon admission.resolved 5. Leukocytosis. 6. Lactic acidosis. 7. Chronic kidney disease, status post recent catheter for dialysis. 8. Acute toxic metabolic encephalopathy. 9. Diabetes. 10. Polycythemia. Plan . 02 titration PRN NEBS 1. RESP STATUS COMPENSATED 2. Antibiotics per ID. 3. Follow Nephrology input. 4. Follow hem input 5. Intraabdominal hematoma per PCP ODILIA BROWN MD Feb 22, 2017 13:53
--- NOTE | 2017-02-22 15:29 | PDOC3 ---
Discharge Summary Visit Information Date of Admission: Feb 14, 2017 Date of Discharge: Feb 22, 2017 Admitting Diagnosis: sepsis Final Diagnosis 1. Metabolic encephalopathy: due to sepsis on admit 2. Severe Sepsis: hypotension, hypothermia resolved. no bacteria isolated in blood, peritoneal fluid and urine. ID was consulted 3. ESRD: currently HD. tunneled cath placed, some bleeding 4. Anemia: 2/2 ESRD, some component of acute bleed with hemoperitoneum post cath placement. EPO, transfuse with HD as needed 5. 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 on hydrea, allopurinol 6. Leukocytosis: multifactorial, mainly MPD trending towards AML, some reactive component, w. sepsis 7. Thrombocytosis: reactive plus MPD. 8. Hepatitis: prob reactive with initial presentation. Hep screen neg. 9. Coagulopathy: 10. DM2: poorly controlled. 11. Nutrition: add dronanibol at DC 12. SVT: 13. HTN: 14. HLD full code Problems Medical Problems: (1) Anemia Status: Acute (2) Coagulopathy Status: Acute (3) Congestive heart failure Status: Acute (4) End stage renal disease Status: Acute (5) Hypoglycemia Status: Acute (6) Hypotension Status: Acute (7) Myelodysplastic syndrome Status: Acute Brief Hospital Course Allergies Allergies Coded Allergies Type Severity Reaction Last Updated Verified anagrelide Allergy Intermediate 02/16/17 Yes ibuprofen Allergy Intermediate 02/16/17 Yes lisinopril Allergy Intermediate 02/16/17 Yes pseudoephedrine Allergy Intermediate 02/16/17 Yes triprolidine Allergy Intermediate 02/16/17 Yes Vital Signs Vital Signs Date Time Temp Pulse Resp B/P (MAP) Pulse Ox O2 Delivery O2 Flow Rate FiO2 02/22/17 11:38 Room Air 02/22/17 11:00 97.8 94 20 112/63 (79) 95 97.8 02/22/17 08:00 2.0 Lab Results Laboratory Tests Test 02/20/17 17:37 02/20/17 20:57 02/21/17 03:25 02/21/17 07:33 Glucose (Fingerstick) 308 mg/dL (70-99) 308 mg/dL (70-99) 177 mg/dL (70-99) White Blood Count 64.6 x10^3/uL (4.0-11.0) Red Blood Count 3.09 x10^6/uL (3.50-5.40) Hemoglobin 8.8 g/dL (12.0-15.5) Hematocrit 27.6 % (36.0-47.0) Mean Corpuscular Volume 89 fL (79-100) Mean Corpuscular Hemoglobin 28 pg (25-35) Mean Corpuscular Hemoglobin Concent 32 g/dL (31-37) Red Cell Distribution Width 17.4 % (11.5-14.5) Platelet Count 255 x10^3/uL (140-400) Neutrophils (%) (Auto) 96 % (31-73) Lymphocytes (%) (Auto) 1 % (24-48) Monocytes (%) (Auto) 1 % (0-9) Eosinophils (%) (Auto) 1 % (0-3) Basophils (%) (Auto) 1 % (0-3) Neutrophils # (Auto) 62.2 x10^3uL (1.8-7.7) Lymphocytes # (Auto) 0.7 x10^3/uL (1.0-4.8) Monocytes # (Auto) 0.7 x10^3/uL (0.0-1.1) Eosinophils # (Auto) 0.7 x10^3/uL (0.0-0.7) Basophils # (Auto) 0.4 x10^3/uL (0.0-0.2) Prothrombin Time 13.4 SEC (11.7-14.0) Prothromb Time International Ratio 1.1 (0.8-1.1) Activated Partial Thromboplast Time 35 SEC (24-38) Sodium Level 138 mmol/L (136-145) Potassium Level 3.8 mmol/L (3.5-5.1) Chloride Level 100 mmol/L (98-107) Carbon Dioxide Level 31 mmol/L (21-32) Anion Gap 7 (6-14) Blood Urea Nitrogen 21 mg/dL (7-20) Creatinine 2.4 mg/dL (0.6-1.0) Estimated GFR (Cockcroft-Gault) 24.1 Glucose Level 198 mg/dL (70-99) Calcium Level 9.5 mg/dL (8.5-10.1) Phosphorus Level 2.3 mg/dL (2.6-4.7) Magnesium Level 2.0 mg/dL (1.8-2.4) Total Bilirubin 1.2 mg/dL (0.2-1.0) Direct Bilirubin 0.4 mg/dL (0.0-0.2) Aspartate Amino Transf (AST/SGOT) 43 U/L (15-37) Alanine Aminotransferase (ALT/SGPT) 10 U/L (14-59) Alkaline Phosphatase 183 U/L (46-116) Total Protein 4.9 g/dL (6.4-8.2) Albumin 2.1 g/dL (3.4-5.0) Test 02/21/17 11:51 02/21/17 17:19 02/21/17 20:45 02/22/17 05:15 Glucose (Fingerstick) 172 mg/dL (70-99) 224 mg/dL (70-99) 231 mg/dL (70-99) White Blood Count 72.4 x10^3/uL (4.0-11.0) Red Blood Count 3.29 x10^6/uL (3.50-5.40) Hemoglobin 9.4 g/dL (12.0-15.5) Hematocrit 29.1 % (36.0-47.0) Mean Corpuscular Volume 88 fL (79-100) Mean Corpuscular Hemoglobin 29 pg (25-35) Mean Corpuscular Hemoglobin Concent 32 g/dL (31-37) Red Cell Distribution Width 17.1 % (11.5-14.5) Platelet Count 297 x10^3/uL (140-400) Neutrophils (%) (Auto) 96 % (31-73) Lymphocytes (%) (Auto) 1 % (24-48) Monocytes (%) (Auto) 1 % (0-9) Eosinophils (%) (Auto) 1 % (0-3) Basophils (%) (Auto) 1 % (0-3) Neutrophils # (Auto) 69.5 x10^3uL (1.8-7.7) Lymphocytes # (Auto) 0.9 x10^3/uL (1.0-4.8) Monocytes # (Auto) 0.8 x10^3/uL (0.0-1.1) Eosinophils # (Auto) 0.5 x10^3/uL (0.0-0.7) Basophils # (Auto) 0.6 x10^3/uL (0.0-0.2) Test 02/22/17 07:23 02/22/17 11:09 Glucose (Fingerstick) 80 mg/dL (70-99) 123 mg/dL (70-99) Laboratory Tests Test 02/21/17 17:19 02/21/17 20:45 02/22/17 05:15 02/22/17 07:23 Glucose (Fingerstick) 224 mg/dL (70-99) 231 mg/dL (70-99) 80 mg/dL (70-99) White Blood Count 72.4 x10^3/uL (4.0-11.0) Red Blood Count 3.29 x10^6/uL (3.50-5.40) Hemoglobin 9.4 g/dL (12.0-15.5) Hematocrit 29.1 % (36.0-47.0) Mean Corpuscular Volume 88 fL (79-100) Mean Corpuscular Hemoglobin 29 pg (25-35) Mean Corpuscular Hemoglobin Concent 32 g/dL (31-37) Red Cell Distribution Width 17.1 % (11.5-14.5) Platelet Count 297 x10^3/uL (140-400) Neutrophils (%) (Auto) 96 % (31-73) Lymphocytes (%) (Auto) 1 % (24-48) Monocytes (%) (Auto) 1 % (0-9) Eosinophils (%) (Auto) 1 % (0-3) Basophils (%) (Auto) 1 % (0-3) Neutrophils # (Auto) 69.5 x10^3uL (1.8-7.7) Lymphocytes # (Auto) 0.9 x10^3/uL (1.0-4.8) Monocytes # (Auto) 0.8 x10^3/uL (0.0-1.1) Eosinophils # (Auto) 0.5 x10^3/uL (0.0-0.7) Basophils # (Auto) 0.6 x10^3/uL (0.0-0.2) Test 02/22/17 11:09 Glucose (Fingerstick) 123 mg/dL (70-99) Brief Hospital Course Ms. Joiner is a 71 old female that was recently discharged from [facility], treated for pneumonia, congestive heart failure, renal insufficiency, and had a peritoneal catheter placement. Admit from ER for confusion, delirium, hypoglucemia, poss sepsis admit to intensive care unit. leukocytosis and lactic acidosis. She was started on vancomycin and Zosyn. slowly better ovet time, Bleeeding risk is high, considered taking out PD cath , plz f/u with or in clinic in 2 weeks to eval removal marked weakness, better over time asthma treated She had a CT abdomen and pelvis, which revealed some basilar infiltrates and effusion. Discharge Information Condition at Discharge: Improved Follow Up: Weeks Disposition/Orders: D/C to Another Facility Scheduled Allopurinol (Allopurinol), 1 TAB PO DAILY, (Reported) Amlodipine Besylate (Norvasc), 10 MG PO DAILY, (Reported) Aspirin (Aspir 81), 1 TAB PO DAILY, (Reported) Atorvastatin Calcium (Lipitor), 1 TAB PO DAILY, (Reported) Bumetanide (Bumetanide), 2 TAB PO BID, (Reported) Carvedilol (Coreg), 1 TAB PO BID, (Reported) Cinacalcet Hcl (Sensipar), 30 MG PO QODAY, (Reported) Dronabinol (Dronabinol), 2.5 MG PO BID Ezetimibe (Zetia), 0.5 TAB PO DAILY, (Reported) Ferrous Sulfate (Feosol), 325 MG PO DAILY, (Reported) Fluticasone/Salmeterol (Advair 250-50 Diskus), 1 PUFF IH Q12HR, (Reported) Hydroxyurea (Droxia), 200 MG PO DAILY, (Reported) Insulin Aspart (Novolog Flexpen), 12 UNIT SQ BIDACBL, (Reported) Insulin Aspart (Novolog Flexpen), 15 UNIT SQ DAILY, (Reported) Insulin Glargine,Hum.rec.anlog (Lantus Solostar), 22 UNIT SQ QHS, (Reported) Lidocaine (Lidocaine), 1 EACH TP DAILY, (Reported) Omeprazole (Omeprazole), 1 CAP PO DAILY, (Reported) Paricalcitol (Zemplar), 1 CAP PO DAILY, (Reported) Polyethylene Glycol 3350 (Miralax), 1 PACKET PO DAILY, (Reported) Sevelamer Carbonate (Renvela), 2 TAB PO TID, (Reported) Sodium Bicarbonate (Sodium Bicarbonate), 850 MG PO BID, (Reported) Scheduled PRN Albuterol Sulfate (Proair Hfa Inhaler), 2 PUFF INH PRN Q4HRS PRN for SHORTNESS OF BREATH, (Reported) Oxycodone/Apap 5-325 (Percocet 5-325 Mg Tablet), 1 TAB PO PRN Q6HRS PRN for PAIN Patient Instructions Patient Instructions > 30 min LOVELY ALCALA MD Feb 22, 2017 15:29
[2017-02-24] MEDS ORDERED: HYDR500C16 PO (17:10)
== END 2017-02-22 16:35 | DRG 871 ==
LOC: ER 20:59 → 1 WEST ICU 22:32 → 6 SOUTH 02-19 14:36
PROVIDERS: ADMIT Internal Medicine; ATTEND Internal Medicine
PROC: 0JH63XZ Insertion of Tunneled Vascular Access Device into Chest Subcutaneous Tissue and Fascia, Percutaneous Approach (ICD-10-PCS; 2017-02-15)
PROC: 05HN33Z Insertion of Infusion Device into Left Internal Jugular Vein, Percutaneous Approach (ICD-10-PCS; 2017-02-15)
PROC: B544ZZA Ultrasonography of Left Jugular Veins, Guidance (ICD-10-PCS; 2017-02-15)
PROC: 30233L1 Transfusion of Nonautologous Fresh Plasma into Peripheral Vein, Percutaneous Approach (ICD-10-PCS; 2017-02-15)
PROC: 30233N1 Transfusion of Nonautologous Red Blood Cells into Peripheral Vein, Percutaneous Approach (ICD-10-PCS; 2017-02-15)
PROC: 30233K1 Transfusion of Nonautologous Frozen Plasma into Peripheral Vein, Percutaneous Approach (ICD-10-PCS; 2017-02-15)
PROC: 5A1D60Z (ICD-10-PCS; 2017-02-15)
PROC: 02H633Z Insertion of Infusion Device into Right Atrium, Percutaneous Approach (ICD-10-PCS; principal; 2017-02-21)
PROC: B2141ZZ Fluoroscopy of Right Heart using Low Osmolar Contrast (ICD-10-PCS; 2017-02-21)
PROC: B244ZZZ Ultrasonography of Right Heart (ICD-10-PCS; 2017-02-21)
DX: A41.9 Sepsis, unspecified organism (principal); G93.40 Encephalopathy, unspecified; K66.1 Hemoperitoneum; N17.9 Acute kidney failure, unspecified; C92.00 Acute myeloblastic leukemia, not having achieved remission; K75.0 Abscess of liver; I13.2 Hypertensive heart and chronic kidney disease with heart failure and with stage 5 chronic kidney disease, or end stage renal disease; G92 Toxic encephalopathy; N18.6 End stage renal disease; D68.9 Coagulation defect, unspecified; D75.81 Myelofibrosis; I47.1 Supraventricular tachycardia; I50.42 Chronic combined systolic (congestive) and diastolic (congestive) heart failure; J98.11 Atelectasis; E11.22 Type 2 diabetes mellitus with diabetic chronic kidney disease; D63.1 Anemia in chronic kidney disease; D45 Polycythemia vera; D47.3 Essential (hemorrhagic) thrombocythemia; D75.1 Secondary polycythemia; D75.89 Other specified diseases of blood and blood-forming organs; E11.649 Type 2 diabetes mellitus with hypoglycemia without coma; E11.65 Type 2 diabetes mellitus with hyperglycemia; E78.5 Hyperlipidemia, unspecified; I25.10 Atherosclerotic heart disease of native coronary artery without angina pectoris; I73.9 Peripheral vascular disease, unspecified; J45.909 Unspecified asthma, uncomplicated; R65.20 Severe sepsis without septic shock; S30.1XXA Contusion of abdominal wall, initial encounter; E21.3 Hyperparathyroidism, unspecified; I95.9 Hypotension, unspecified; R16.1 Splenomegaly, not elsewhere classified; R79.89 Other specified abnormal findings of blood chemistry; I25.2 Old myocardial infarction; Z79.4 Long term (current) use of insulin; Z87.01 Personal history of pneumonia (recurrent); Z80.0 Family history of malignant neoplasm of digestive organs; Z85.3 Personal history of malignant neoplasm of breast; Z87.11 Personal history of peptic ulcer disease; Z90.13 Acquired absence of bilateral breasts and nipples; Z90.710 Acquired absence of both cervix and uterus; Z99.2 Dependence on renal dialysis
CPT/HCPCS: 36415; 36556; 36558; 51702; 70450; 71010; 74000; 74176; 74177; 76937; 77001; 80048; 80053; 80069; 80076; 80202; 80307; 81001; 82274; 82962; 83605; 83690; 83735; 84100; 84145; 84439; 84443; 84478; 84481; 85007; 85025; 85027; 85384; 85610; 85730; 86704; 86706; 86850; 86900; 86901; 86920; 86927; 87040; 87071; 87075; 87086; 87205; 87340; 87341; 87641; 93005; 94250; 94640; 94760; 96365; 96375; 99152; 99153; C1750; C1769; C1892; J0610; J0690; J1265; J1644; J1815; J1956; J2248; J2250; J2270; J2405; J2543; J2597; J3010; J3370; J3430; J3475; J3490; J7030; J7040; J7042; J7613; J7626; P9016; P9017; P9046; Q9967; S0028; 92610; 97110; 97116; 97530; 99285-25; G0479

== ENCOUNTER 2017-02-23 06:03 | Emergency (ER) | payer MEDICARE ==
[~2017-02-23 06:03] MED LIST: ALLO300T PO; AMLO10TA4 PO; ASPI-482 PO; ATOR40TA PO; BUME2TAB PO; CARV12.5 PO; CINA30TA2 PO; DRON2.5C2 PO; EZET10TA18 PO; FERR325T72 PO; FLUT1DIS3 IH; HYDR200C PO; INSU100I13 SQ; INSU100I17 SQ; LIDO700A39 TP; OMEP40CA5 PO; OXYC-323 PO; PARI1CAP PO; POLY17PO29 PO; PROAIR HFA8.5 GM INH; SEVE800T9 PO; SODI650T PO
--- NOTE | 2017-02-23 06:20 | PHYS DOC ---
Past Medical History Past Medical History: Diabetes-Type II Past Surgical History: No Surgical History Adult General Chief Complaint Chief Complaint: bleeding from peritoneal dialysis catheter HPI HPI Patient is a 71 year old female who presents with bleeding onset prior to arrival, mild to moderate severity, from the newly placed few weeks ago peritoneal dialysis catheter (performed at [facility]); currently undergoes hematoma dialysis Monday and has a dialysis catheter in the right IJ. Recent admission with severe anemia. Denies any chest pain shortness of breath or abdominal pain. History of end-stage renal disease, myeloproliferative disorder/early AML, easy bleeding, DM. The patient was just in the hospital over the past 1 week admitted for sepsis, anemia, altered mentation. I have read and reviewed the discharge summary. PCP is Dr. Yarbrough; sales promotion representative Dr. Alonso. Review of Systems Review of Systems Constitutional: Denies fever or chills [] Eyes: Denies change in visual acuity, redness, or eye pain [] HENT: Denies nasal congestion or sore throat [] Respiratory: Denies cough or shortness of breath [] Cardiovascular: No additional information not addressed in HPI [] GI: Denies abdominal pain, nausea, vomiting, bloody stools or diarrhea [] : Denies dysuria or hematuria [] Musculoskeletal: Denies back pain or joint pain [] Integument: Denies rash or skin lesions [] Neurologic: Denies headache, focal weakness or sensory changes [] Endocrine: Denies polyuria or polydipsia [] Allergies Allergies Allergies Coded Allergies Type Severity Reaction Last Updated Verified anagrelide Allergy Intermediate 02/16/17 Yes ibuprofen Allergy Intermediate 02/16/17 Yes lisinopril Allergy Intermediate 02/16/17 Yes pseudoephedrine Allergy Intermediate 02/16/17 Yes triprolidine Allergy Intermediate 02/16/17 Yes Physical Exam Physical Exam Constitutional: Well developed, well nourished, no acute distress, non-toxic appearance. [] HENT: Normocephalic, atraumatic, bilateral external ears normal, oropharynx moist, no oral exudates, nose normal. [] Eyes: PERRLA, EOMI, conjunctiva slightly pale, no discharge. [] Neck: Normal range of motion, no tenderness, supple, no stridor. [] Cardiovascular:Heart rate regular rhythm, no murmur [] Lungs & Thorax: Bilateral breath sounds clear to auscultation [] Abdomen: Bowel sounds normal, soft, no tenderness, no masses, no pulsatile masses. Peritoneal Dialysis catheter is secured to the anterior mid abdomen, no active bleeding at this time, no swelling erythema or induration to the abdominal wall or insertion site of the catheter. Hemodialysis catheter in place in the right IJ region appears normal. [] Skin: Warm, dry, no erythema, no rash. [] Back: No tenderness, no CVA tenderness. [] Extremities: No tenderness, no cyanosis, no clubbing, ROM intact, no edema. [] Neurologic: Alert and oriented X 3, normal motor function, normal sensory function, no focal deficits noted. [] Psychologic: Affect normal, judgement normal, mood normal. [] Current Patient Data Vital Signs Vital Signs Date Time Temp Pulse Resp B/P (MAP) Pulse Ox O2 Delivery O2 Flow Rate FiO2 02/23/17 09:13 88 157/79 (105) 96 Room Air 02/23/17 06:22 97.6 16 97.6 Lab Values Laboratory Tests Test 02/23/17 06:40 White Blood Count 84.1 x10^3/uL (4.0-11.0) *H Red Blood Count 3.39 x10^6/uL (3.50-5.40) L Hemoglobin 9.8 g/dL (12.0-15.5) L Hematocrit 30.9 % (36.0-47.0) L Mean Corpuscular Volume 91 fL (79-100) Mean Corpuscular Hemoglobin 29 pg (25-35) Mean Corpuscular Hemoglobin Concent 32 g/dL (31-37) Red Cell Distribution Width 18.4 % (11.5-14.5) H Platelet Count 290 x10^3/uL (140-400) Neutrophils (%) (Auto) 97 % (31-73) H Lymphocytes (%) (Auto) 1 % (24-48) L Monocytes (%) (Auto) 1 % (0-9) Eosinophils (%) (Auto) 0 % (0-3) Basophils (%) (Auto) 1 % (0-3) Neutrophils # (Auto) 81.6 x10^3uL (1.8-7.7) H Lymphocytes # (Auto) 0.9 x10^3/uL (1.0-4.8) L Monocytes # (Auto) 0.7 x10^3/uL (0.0-1.1) Eosinophils # (Auto) 0.3 x10^3/uL (0.0-0.7) Basophils # (Auto) 0.6 x10^3/uL (0.0-0.2) H Segmented Neutrophils % 96 % (35-66) H Band Neutrophils % 4 % (0-9) Platelet Estimate Adequate (ADEQUATE) Anisocytosis Slight Prothrombin Time 12.6 SEC (11.7-14.0) Prothrombin Time INR 1.0 (0.8-1.1) PTT 30 SEC (24-38) Sodium Level 140 mmol/L (136-145) Potassium Level 4.3 mmol/L (3.5-5.1) Chloride Level 102 mmol/L (98-107) Carbon Dioxide Level 30 mmol/L (21-32) Anion Gap 8 (6-14) Blood Urea Nitrogen 28 mg/dL (7-20) H Creatinine 2.4 mg/dL (0.6-1.0) H Estimated GFR (Cockcroft-Gault) 24.1 BUN/Creatinine Ratio 12 (6-20) Glucose Level 72 mg/dL (70-99) Calcium Level 10.2 mg/dL (8.5-10.1) H Total Bilirubin 1.2 mg/dL (0.2-1.0) H Aspartate Amino Transferase (AST) 68 U/L (15-37) H Alanine Aminotransferase (ALT) 7 U/L (14-59) L Alkaline Phosphatase 162 U/L (46-116) H Total Protein 5.8 g/dL (6.4-8.2) L Albumin 2.1 g/dL (3.4-5.0) L Albumin/Globulin Ratio 0.6 (1.0-1.7) L Laboratory Tests 02/23/17 06:40 Laboratory Tests 02/23/17 06:40 EKG EKG [] Radiology/Procedures Radiology/Procedures [] Course & Med Decision Making Course & Med Decision Making Pertinent Labs and Imaging studies reviewed. (See chart for details) Plan to check labs and observe in the ED. Labs appears stable with comparison. Discussed situation and test results in detail with the sister and patient. Patient's prognosis is extremely poor in the near term. [] Dragon Disclaimer Dragon Disclaimer This electronic medical record was generated, in whole or in part, using a voice recognition dictation system. Departure Departure Impression: Primary Impression: Bleeding from wound Disposition: HOME, SELF-CARE Condition: STABLE Referrals: UNKNOWN PCP NAME (PCP) Additional Instructions: change dressings as needed if bleeding re-occurs (which it will). return if bleeding severe and uncontrollable. TREVIN PARKER MD Feb 23, 2017 06:20
[2017-02-23 07:04] LABS: CALCIUM 10.2 mg/dL (8.5-10.1); CREATININE 2.4 mg/dL (0.6-1.0); GFR 24.1; POTASSIUM 4.3 mmol/L (3.5-5.1)
[2017-02-23 07:08] LABS: BASO # 0.6 x10^3/uL (0.0-0.2); BASO % 1 % (0-3); EOS % 0 % (0-3); HEMATOCRIT 30.9 % (36.0-47.0); HEMOGLOBIN 9.8 g/dL (12.0-15.5); LYMPH # 0.9 x10^3/uL (1.0-4.8); LYMPH % 1 % (24-48); MEAN CORPUSCULAR HEMOGLOBIN 29 pg (25-35); MEAN CORPUSCULAR HGB CONC 32 g/dL (31-37); MEAN CORPUSCULAR VOLUME 91 fL (79-100); MONO % 1 % (0-9); NEUT % 97 % (31-73); PLATELET COUNT 290 x10^3/uL (140-400); RED BLOOD COUNT 3.39 x10^6/uL (3.50-5.40); RED CELL DISTRIBUTION WIDTH 18.4 % (11.5-14.5)
[2017-02-23 07:09] LABS: ALBUMIN 2.1 g/dL (3.4-5.0); ALBUMIN/GLOBULIN RATIO 0.6 (1.0-1.7); TOTAL BILIRUBIN 1.2 mg/dL (0.2-1.0); TOTAL PROTEIN 5.8 g/dL (6.4-8.2)
[2017-02-23 07:18] LABS: WHITE BLOOD COUNT 84.1 x10^3/uL (4.0-11.0)
[2017-02-23 07:20] LABS: PROTHROMBIN TIME PATIENT 12.6 SEC (11.7-14.0)
[2017-02-23 09:13] VITALS: BP 157/79
[2017-02-23 10:43] LABS: PLT ESTIMATE ADEQUATE (ADEQUATE)
[2017-02-23 10:44] LABS: ANISOCYTOSIS SLIGHT
[2017-02-24] MEDS ORDERED: HYDR500C16 PO (17:10)
[2017-03-01] MEDS ORDERED: OXYC1TAB7 PO (10:15)
== END 2017-02-23 08:30 | disposition home or self-care (01) ==
LOC: ER 06:03
DX: T85.838A Hemorrhage due to other internal prosthetic devices, implants and grafts, initial encounter (principal); E11.22 Type 2 diabetes mellitus with diabetic chronic kidney disease; N18.6 End stage renal disease; Z99.2 Dependence on renal dialysis; D64.9 Anemia, unspecified; Z88.6 Allergy status to analgesic agent; Z88.8 Allergy status to other drugs, medicaments and biological substances
CPT/HCPCS: 36415; 80053; 85007; 85025; 85610; 85730; 99284